=== PATIENT | male | born 1990 | race Caucasian/White ===

== ENCOUNTER 2022-09-25 09:35 | Emergency (ER) | payer MEDICARE, OTHER, MEDICAID, SELFPAY ==
[2022-09-25 09:54] VITALS: BP 120/80; PULSE 86; RESP 18; TEMP 36.6; O2SAT 96; BMI 31.3
--- NOTE | 2022-09-25 10:33 | ED.NURSE ---
pt has requested sandwiches x2 while waiting for eval
--- NOTE | 2022-09-25 10:43 | ED.PSYCH ---
HPI - Psych General Chief Complaint: Psychiatric Problem/Disorder Stated Complaint: Suicidal Ideation Time Seen by Provider: 09/25/22 10:34 History of Present Illness HPI Narrative: 32-year-old man presenting to the emergency department on recommendation of his recovery center where he is in treatment for polysubstance use/abuse. Prefers methamphetamine and alcohol but has done a variety of substances. This is inpatient. He has 2 more months. He has been having increasing thoughts of suicide over the last week in particular to hang himself. Some months ago was in retirement and did accomplish this requiring CPR he reports. He has had other suicide attempts. Is not seeing much hope for the future at the moment. Does not anticipate anything over the next week and beyond. He has been drifting from ?my chick? adding to his depression. Reports history of substance abuse as noted, bipolar disorder indicating that with medication changes recently had a bipolar episode. Medications per list from [facility] include bupropion naltrexone p.r.n. for hydroxyzine and trazodone Related Data Home Medications Medication Instructions Recorded Confirmed bupropion HCl 150 mg 24 hr tablet, 150 mg PO DAILY 09/25/22 09/25/22 extended release naltrexone 50 mg tablet 50 mg PO DAILY 09/25/22 09/25/22 Allergies Allergy/AdvReac Type Severity Reaction Status Date / Time No Known Drug Allergies Allergy Verified 09/25/22 10:06 Review of Systems Status of ROS: Reports: 6 or more systems reviewed and unremarkable except as noted in History and below PFSH PFSH Social History Smoking Status: Current every day smoker Do you use any of these nicotine containing products: None How often do you have a drink containing alcohol: never AUDIT-C Alcohol total score: 0 Non-prescribed substance use: denies use Non-prescribed substance use details: is currently in treatment for drugs and alcohol Exam Narrative: Exam Narrative: Pleasant. NAD. Relaxing eating late breakfast. Also Roddy and Yobani. Is calm. Appropriately casually dressed in T-shirt in track pants. Smells of cigarette smoke. Skin is warm and dry. No evidence of recent self-harm behavior. Breathing easily. Cranial nerves 2-12 intact. No nystagmus. Cardiovascular was regular rate and rhythm Moving all extremities without difficulty. Extremities are without edema. Mood is depressed affect is actually positive. Speech is not pressured or slurred. Const: Vital Signs, click to edit/add: Vital Signs - 24 hr 09/25/22 09:54 09/25/22 10:48 09/25/22 18:03 Temperature 97.8 F 97.7 F Pulse Rate [Right Pulse Oximeter] 86 78 78 Respiratory Rate 18 18 18 Blood Pressure [Ri ght Upper Arm] 120/80 122/78 116/62 Pulse Oximetry 96 98 96 Oxygen Delivery Me thod Room Air Room Air Room Air Documenting provider has reviewed patient's vital signs: yes Course Course Hospital Course: DEC was consulted also expressing concern and recommending psychiatric admission. Not able to contract for safety. Reevaluation(s) Reevaluation #1: Continued to sleep during time in the emergency department not requiring any other interventions. Reevaluation #2: Comfortable. Sleeping. Reevaluation #3: Pending approval from safety instruction police officer to transport to psychiatric facility. Anticipate though likely heading to another DEC assessment in the morning. Vital Signs Vital signs: Initial Vital Signs Temperature 97.8 F 09/25/22 09:54 Temperature Source Temporal Artery Scan 09/25/22 09:54 Pulse Rate 86 09/25/22 09:54 Respiratory Rate 18 09/25/22 09:54 Blood Pressure 120/80 09/25/22 09:54 Blood Pressure Mean 93 09/25/22 09:54 Blood Pressure Position Sitting 09/25/22 09:54 Pulse Oximetry 96 09/25/22 09:54 Oxygen Delivery Method 09/25/22 09:54 Vital Signs Temperature 97.8 F 09/25/22 09:54 Pulse Rate 86 09/25/22 09:54 Respiratory Rate 18 09/25/22 09:54 Blood Pressure 120/80 09/25/22 09:54 Pulse Oximetry 96 09/25/22 09:54 Oxygen Delivery Method 09/25/22 09:54 Temperature 97.7 F 09/25/22 18:03 Pulse Rate 78 09/25/22 18:03 Respiratory Rate 18 09/25/22 18:03 Blood Pressure 116/62 09/25/22 18:03 Pulse Oximetry 96 09/25/22 18:03 Oxygen Delivery Method 09/25/22 18:03 MDM - Psych MDM Narrative Medical decision making narrative: A number of mental health facilities simultaneously working at placing Mr. Gavin but determined that his acuity was too high or would require too much observation given his reported suicide history. Finally did obtain acceptance from [facility] in [place]. Prior to discussing location I did inquire again with Mr. Gavin as to his suicidality. He indicated that it is coming and going but still present. I did inform Mr. Gavin of facility acceptance in [place] and he was disinclined to go there in part because anticipating no transport back. He wanted to return to his recovery center. Subsequently called [facility] but they would not anticipate being able to provide transport back. I also attempted to contact Mr. Gavin's mother but was only able to leave a message. Mr. Gavin also around this time informed me that he is on parole and is not to cross state lines. Given that he was still noting suicidality I placed Mr. Gavin on a 72 hour hold as ambulance transport had arrived anticipating that medical necessity would be pre-emptive and per initial conversation that [facility] would look into supplying bus voucher. I also attempted to contact safety instruction police officer Amarilis at phone #[phone] and only able to leave a message twice. Subsequently received a call back from [facility] confirming that they do indeed need actual written communication from the safety instruction police officer per their policy before they can accept a psychiatric patient. Labs unremarkable other than oxycodone noted in urine tox screen. At this point this is being rerun. Mr. Gavin is taking naltrexone. Now pending communication from safety instruction police officer. I would anticipate another DEC assessment likely in the morning. Lab Data Attestation: I reviewed the patient's lab results. Labs: Lab Results 09/25/22 09/25/22 09/25/22 Range/Units 10:48 11:00 11:32 WBC 7.39 (4.50-11.00) K/uL RBC 5.50 (4.30-5.90) m/uL Hgb 16.5 (13.5-17.5) gm/dL Hct 48.5 (37.0-53.0) % MCV 88 (80-100) fL MCH 30 (26-34) pg MCHC 34 (32-36) gm/dL RDW Coeff of Yadi 12.1 (11.5-15.5) % Plt Count 211 (140-440) K/uL Neut % (Auto) 70.8 (42.0-72.0) % Lymph % (Auto) 19.9 L (20-44) % Wheeler % (Auto) 6.6 (0.0-11.0) % Eos % (Auto) 1.9 (0.0-7.0) % Baso % (Auto) 0.4 (0.0-3.0) % Neut # (Auto) 5.23 (1.7-7.0) K/uL Lymph # (Auto) 1.50 (0.90-2.90) K/uL Wheeler # (Auto) 0.50 (0.00-0.90) K/UL Eos # (Auto) 0.14 (0.00-0.50) K/uL Baso # (Auto) 0.03 (0.00-0.30) K/uL Abs Immat Gran (auto) 0.03 (0.00-0.30) K/uL Sodium (135-149) mmol/L Potassium (3.6-5.1) mmol/L Chloride (96-114) mmol/L Carbon Dioxide (20-32) mmol/L BUN (5-24) mg/dL Creatinine (0.5-1.5) mg/dL Estimated Creat Clear Estimated GFR ml/min Glucose (60-115) mg/dL Calcium (8.4-10.6) mg/dL Total Bilirubin (0.1-1.5) mg/dL Direct Bilirubin (0.0-0.5) mg/dL AST (12-35) U/L ALT (4-50) U/L Alkaline Phosphatase (40-150) U/L Total Protein (6.0-8.3) g/dL Albumin (3.3-5.0) g/dL Salicylates (1.0-10) mg/dL Urine Opiates Screen Negative (Negative) Ur Oxycodone Screen POSITIVE A* (Negative) Urine Methadone Screen Negative (Negative) Ur Propoxyphene Screen Negative (Negative) Acetaminophen (10.0-30.0) ug/mL Ur Barbiturates Screen Negative (Negative) U Tricyclic Antidepress Negative (Negative) Ur Phencyclidine Scrn Negative (Negative) Ur Amphetamines Screen Negative (Negative) U Methamphetamines Scrn Negative (Negative) U Benzodiazepines Scrn Negative (Negative) Urine Cocaine Screen Negative (Negative) U Marijuana (THC) Screen Negative (Negative) Ur Drug Screen Comment See Note Ethyl Alcohol (0.01-0.03) % SARS-CoV-2 (PCR) Negative SARS-CoV-2 (Negative) 09/25/22 Range/Units 11:32 WBC (4.50-11.00) K/uL RBC (4.30-5.90) m/uL Hgb (13.5-17.5) gm/dL Hct (37.0-53.0) % MCV (80-100) fL MCH (26-34) pg MCHC (32-36) gm/dL RDW Coeff of Yadi (11.5-15.5) % Plt Count (140-440) K/uL Neut % (Auto) (42.0-72.0) % Lymph % (Auto) (20-44) % Wheeler % (Auto) (0.0-11.0) % Eos % (Auto) (0.0-7.0) % Baso % (Auto) (0.0-3.0) % Neut # (Auto) (1.7-7.0) K/uL Lymph # (Auto) (0.90-2.90) K/uL Wheeler # (Auto) (0.00-0.90) K/UL Eos # (Auto) (0.00-0.50) K/uL Baso # (Auto) (0.00-0.30) K/uL Abs Immat Gran (auto) (0.00-0.30) K/uL Sodium 140 (135-149) mmol/L Potassium 4.4 (3.6-5.1) mmol/L Chloride 103 (96-114) mmol/L Carbon Dioxide 27 (20-32) mmol/L BUN 17 (5-24) mg/dL Creatinine 1.0 (0.5-1.5) mg/dL Estimated Creat Clear 111.53 Estimated GFR 104 ml/min Glucose 98 (60-115) mg/dL Calcium 9.2 (8.4-10.6) mg/dL Total Bilirubin 0.6 (0.1-1.5) mg/dL Direct Bilirubin 0.1 (0.0-0.5) mg/dL AST 40 H (12-35) U/L ALT 23 (4-50) U/L Alkaline Phosphatase 84 (40-150) U/L Total Protein 7.1 (6.0-8.3) g/dL Albumin 4.5 (3.3-5.0) g/dL Salicylates < 1.0 L (1.0-10) mg/dL Urine Opiates Screen (Negative) Ur Oxycodone Screen (Negative) Urine Methadone Screen (Negative) Ur Propoxyphene Screen (Negative) Acetaminophen < 10.0 L (10.0-30.0) ug/mL Ur Barbiturates Screen (Negative) U Tricyclic Antidepress (Negative) Ur Phencyclidine Scrn (Negative) Ur Amphetamines Screen (Negative) U Methamphetamines Scrn (Negative) U Benzodiazepines Scrn (Negative) Urine Cocaine Screen (Negative) U Marijuana (THC) Screen (Negative) Ur Drug Screen Comment Ethyl Alcohol < 0.01 L (0.01-0.03) % SARS-CoV-2 (PCR) (Negative) Discharge Plan Discharge Patient Disposition: Pending Disposition
[2022-09-25 10:48] VITALS: BP 122/78; PULSE 78; RESP 18; O2SAT 98
--- OUTSIDE RECORDS SUMMARY | 2022-09-25 10:54 | XMS_ITS | Encounter Summary ---
:1990 Author Organization [place] Address [address] [facility] [place] [address] Care Team Providers Name Role Phone Ruperto Rey PhD Unavailable Unavailable Bebeto Faulkner OD Unavailable Dana Powell DPM Unavailable [phone] Julian Santana MD Primary Care Provider Encounter Details Date Type Department Care Team Description 07/27/2013 [facility] Grover chaudhry MD [facility] [address] [facility] [address] [place] [address] [address] [place], [place] [address] (Wo rk) Social History Tobacco Use Types Packs/Day Years Used Date Smoking Tobacco: Every Day Cigarettes 1 7 Smokeless Tobacco: Current Chew Comments: declines quit lne 09-26-12 Alcohol Use Standard Drinks/Week Comments Yes 0 (1 standard drink = 0.6 oz pure about 6 bees once or twice a week alcohol) Sex Assigned at Date Recorded Not on file documented as of this encounter Plan of Treatment Not on filedocumented as of this encounter Visit Diagnoses Not on filedocumented in this encounter Care Teams Hydraulic Pile Hammer Operator Relationship Specialty Start Date End Date Ruperto Rey, PhD PCP - Mental 12/21/00 05/14/22 XXX NO INFO FOUND XXX Health/Behavioral Medicine Bebeto Faulkner, OD PCP - Ophthalmology 10/21/07 Dana Powell, PCP - Podiatry 02/16/08 DPM [facility] [place] [address] [place] [address] Julian Santana MD PCP - General Family Practice 09/26/12 [facility] [place] [address] [place] [address] documented as of this encounter
--- OUTSIDE RECORDS SUMMARY | 2022-09-25 10:54 | XMS_ITS | Encounter Summary ---
:1990 Author Organization [place] Address [address] [facility] [place] [address] Care Team Providers Name Role Phone Ruperto Rey PhD Unavailable Unavailable Bebeto Faulkner OD Unavailable Dana Powell DPM Unavailable [phone] Julian Santana MD Primary Care Provider Reason for Visit Reason Comments Imm/Inj Encounter Details Date Type Department Care Team Description 11/01/2013 Allied Health/Nurse [facility] - Imm/Inj Visit [place] in [address] [id number] Social History Tobacco Use Types Packs/Day Years Used Date Smoking Tobacco: Every Day Cigarettes 1 7 Smokeless Tobacco: Current Chew Comments: declines quit lne 09-26-12 Alcohol Use Standard Drinks/Week Comments Yes 0 (1 standard drink = 0.6 oz pure about 6 bees once or twice a week alcohol) Sex Assigned at Date Recorded Not on file documented as of this encounter Nursing Notes 11/01/2013 4:45 PM CST >> Lashanda Lynch LPN WedNov 01, 2013 5:18 PM Vaccines given this encounter have been verified with Ramos STEVE documented in this encounter Plan of Treatment Not on filedocumented as of this encounter Visit Diagnoses Diagnosis Need for prophylactic vaccination and in oculation against other combinations of diseases - Primary documented in this encounter Care Teams Side Puller Relationship Specialty Start Date End Date Ruperto Rey, PhD PCP - Mental 12/21/00 05/14/22 XXX NO INFO FOUND XXX Health/Behavioral Medicine Bebeto Faulkner, ROSLYN PCP - Ophthalmology 10/21/07 Dana Powell, PCP - Podiatry 02/16/08 DPM [facility] [place] [address] [facility] [address] [place], [place] [id number] Julian Santana MD PCP - General Family Practice 09/26/12 [facility] [address] [facility] [address] [place] [address] documented as of this encounter
--- OUTSIDE RECORDS SUMMARY | 2022-09-25 10:54 | XMS_ITS | Encounter Summary ---
:1990 Author Organization [place] Address [address] [place] [address] Care Team Providers Name Role Phone Candido Ruperto Hicks PhD Unavailable Unavailable Bebeto Faulkner OD Unavailable Dana Powell DPM Unavailable [phone] Julian Santana MD Primary Care Provider Reason for Visit Reason Comments Cough Cough x2 wks. Encounter Details Date Type Department Care Team Description 08/16/2013 [facility], acute (Primary Dx); System in [place] W[facility] Valerio Acute maxillary sinusitis Urgent Care [address] [place] [address] [address] [address] [place] [address] [phone] Social History Tobacco Use Types Packs/Day Years Used Date Smoking Tobacco: Every Day Cigarettes 1 7 Smokeless Tobacco: Current Chew Comments: declines quit lne 09-26-12 Alcohol Use Standard Drinks/Week Comments Yes 0 (1 standard drink = 0.6 oz pure about 6 bees once or twice a week alcohol) Sex Assigned at Date Recorded Not on file documented as of this encounter Last Filed Vital Signs Vital Sign Reading Time Taken Comments Blood Pressure 110/59 08/16/2013 12:12 PM CDT Pulse 92 08/16/2013 12:12 PM CDT Temperature 36.9 ??C (98.5 ??F) 08/16/2013 12:12 PM CDT Respiratory Rate - - Oxygen Saturation 98% 08/16/2013 12:12 PM CDT Inhaled Oxygen Concentration - - Weight - - Height - - Body Mass Index - - documented in this encounter Progress Notes Althea Pederson PA - 08/16/2013 1:46 PM CDT CHIEF COMPLAINT: Bronchitis. HISTORY OF CHIEF COMPLAINT: Patient states that his lung started hurting about 2 weeks ago. He has had a lot of coughing and has gotten worse over the last couple of days. He has had increased phlegm production and hurts to breathe. He complains of being hot but does not have a fever that he knows of or any chills. He has had some headaches and sinus drainage and pressure. Patient does smoke. Also has had a history of having had bronchitis in the past and having to use inhalers with that. VITAL SIGNS: Noted in Epic. GENERAL: Well developed 22-year-old male in no acute distress at rest. ENT: Tympanic membranes are clear. He does look like he might have a slight retraction in the ears. Little fluid clear fluid. Nasal passages are swollen. Maxillary sinuses are tender to palpation. Oropharynx is irritated. No erythema. HEART: Regular rate and rhythm without murmur. LUNGS: Clear to auscultation bilaterally. ASSESSMENT: 1. Bronchitis. 2. Sinusitis. PLAN: Put him on Augmentin 875, 1 p.o. b.i.d. for 10 days. Also put him on Albuterol inhaler 2 puffs every 6 hours as needed for cough and shortness of breath. Did discuss with patient about quitting smoking and that he needed to saline sinus rinses to flush out his sinuses. If he has any problems or get worse, he will follow up. SADIE Martinez/lawrence documented in this encounter Plan of Treatment Not on filedocumented as of this encounter Visit Diagnoses Diagnosis Bronchitis, acute - Primary Acute bronchitis Acute maxillary sinusitis documented in this encounter Care Teams Washer Machine Relationship Specialty Start Date End Date Ruperto Rey, PhD PCP - Mental 12/21/00 05/14/22 XXX NO INFO FOUND XXX Health/Behavioral Medicine Lucie, Bebeto M, OD PCP - Ophthalmology 10/21/07 Dana Powell, PCP - Podiatry 02/16/08 DPM [facility] [place] [address] [facility] [address] [place] [address] Julian Santana MD PCP - General Family Practice 09/26/12 [facility] [place] [address] [place] [address] documented as of this encounter
--- OUTSIDE RECORDS SUMMARY | 2022-09-25 10:54 | XMS_ITS | Encounter Summary ---
:1990 Author Organization [place] Address [address] [place] [address] Care Team Providers Name Role Phone Mariely Osuna MD Primary Care Provider Ruperto Rey PhD Unavailable Unavailable Bebeto Faulkner OD Unavailable Dana Powell DPM Unavailable [phone] Reason for Visit Reason Comments Pain lung pain, x 2 days, thinks may have aspirated vomit on sat, short of breath Encounter Details Date Type Department Care Team Description 05/16/2012 Office Visit [facility] Addison Sidhu Chest pain (Primary System in [place] D, PA-C Dx) Urgent Care [facility] [address] [place], [place] [address] [place] [address] Social History Tobacco Use Types Packs/Day Years Used Date Smoking Tobacco: Every Day Cigarettes 0.5 Smokeless Tobacco: Current Chew Alcohol Use Standard Drinks/Week Comments Not Asked 0 (1 standard drink = 0.6 oz pure alcoho l) Sex Assigned at Date Recorded Not on file documented as of this encounter Last Filed Vital Signs Vital Sign Reading Time Taken Comments Blood Pressure 108/69 05/16/2012 3:39 PM CDT Pulse 71 05/16/2012 3:39 PM CDT Temperature 36.4 ??C (97.6 ??F) 05/16/2012 3:39 PM CDT Respiratory Rate - - Oxygen Saturation 98% 05/16/2012 3:39 PM CDT Inhaled Oxygen Concentration - - Weight 81.2 kg (179 lb) 05/16/2012 3:39 PM CDT Height - - Body Mass Index 25.68 05/21/2011 1:45 PM CDT documented in this encounter Progress Notes Addison Sidhu PA-C - 05/17/2012 8:30 AM CDT SUBJECTIVE: Young adult male smoker who threw up so hard the other day that he strained his chest wall and lungs he states. He started himself on a couple days of Augmentin for purulent sputum. He continues to smoke. No fever , non pleuritic. PHYSICAL EXAMINATION: He is smiling, no distress. Vitals stable. Ears and throat clear. Lungs clear. Heart tones are normal. Palpation of the chest wall nontender. Chest x-ray appears clear. Abdomen soft. No distress. ASSESSMENT: Bronchitis. PLAN: Finish off a ten day course of Augmentin 875 b.i.d. for ten days. Seven day prescription given. He is to recheck with us sooner p.r.n. increasing pain or fever. Patient and family agree with this plan of care. Smoking cessation is strongly advised. Addison Sidhu PA-C CDM/amari documented in this encounter Nursing Notes 05/16/2012 3:45 PM CDT >> POONAM LYNN Mon May 16, 2012 4:14 PM Medication name: Albuterol 2.5mg/3ml lot number:[id number] expiration date: 11/10 given via nebulizer: Pre O2 sats: 98 HR: 71 Post O2 sats: 100 HR: 74 documented in this encounter Plan of Treatment Not on filedocumented as of this encounter Procedures Procedure Name Priority Date/Time Associated Diagnosis Comme nts XR CHEST 2 VIEWS Routine 05/16/2012 4:07 PM Chest Pain Resul ts for this CDT procedure are i n the results section. documented in this encounter Results X-ray Chest 2 vws* (05/16/2012 4:07 PM CDT) Anatomical Region Laterality Modality Chest Other Specimen (Source) Anatomical Collection Method Collection Time Re ceived Time Location / / Volume Laterality 05/16/2012 4:07 PM CDT Impressions 05/16/2012 9:03 PM CDT CHEST TWO VIEW ?? May 16, 2012 4:07:00 PM HISTORY: Chest pain. COMPARISON: 11/04/2004 IMPRESSION: Normal and unchanged. Addison Sidhu PA-C IMG DIAGNOSTIC IMAGING ORDER TRACEY documented in this encounter Visit Diagnoses Diagnosis Chest pain - Primary Chest pain, unspecified documented in this encounter Care Teams Java Developer Relationship Specialty Start Date End Date Mariely Osuna MD PCP - General 06/26/04 09/25/12 [facility] [place] [address] [place] [address] Ruperto Rey, PhD PCP - Mental Health/Behavioral 12/21/00 XXX NO INFO FOUND XXX Medicine Bebeto Faulkner, OD PCP - Ophthalmology 10/21/07 Dana Powell, PCP - Podiatry 02/16/08 DPM [facility] [place] [address] [place] [address] documented as of this encounter
--- OUTSIDE RECORDS SUMMARY | 2022-09-25 10:54 | XMS_ITS | Encounter Summary ---
:1990 Author Organization [place] Address [address] [place] [address] Care Team Providers Name Role Phone KatherinejumanaRuperto PhD Unavailable Unavailable Bebeto Faulkner OD Unavailable Dana Powell DPM Unavailable [phone] Julian Santana MD Primary Care Provider Reason for Referral - Closed Specialty Diagnoses / Procedures Referred By Contact Refer red To Contact Diagnoses Bipolar I disorder, most recent episode (or current) unspecified Julian Santana MD [facility] [address] [place] [address] Referral ID Status Reason Start Date Expiration Date Visits Requ ested Visits Authorized [id number] Closed 09/26/2012 03/25/2013 1 1 Scheduling Instructions Please contact the [facility] at [phone] to set up your appointment. Thank you. - Closed Specialty Diagnoses / Procedures Referred By Contact Refer marty To Contact Diagnoses Abdominal pain, other specified site Weight loss Julian Santana MD [facility] [address] [place] [address] Referral ID Status Reason Start Date Expiration Date Visits Requ ested Visits Authorized [id number] Closed 09/26/2012 03/25/2013 1 1 Specialty Diagnoses / Procedures Referred By Contact Refer red To Contact Julian Santana MD [facility] Marty Gee [address] [place] [address] Referral ID Status Reason Start Date Expiration Date Visits Requ ested Visits Authorized Reason for Visit Reason Comments Establish Care transfer of care Gastric Problem stomach pain Derm Problem possible ring worm A.D.H.D talk about this and depressi on Encounter Details Date Type Department Care Team Description 09/26/2012 Office Visit [facility] Julian Santana, Abdom inal pain, other specified site (Primary Dx); System in Marty Gee MD Weight loss; Family Practice [facility] Marty Gee BIPOLAR - MOST RECENT EPISODE UNSPECIFIE D; [address] [place] [address] Marijuana abuse [address] [address] [place] [phone] [id number] Social History Tobacco Use Types Packs/Day Years [...] Sign Reading Time Taken Comments Blood Pressure 110/80 09/26/2012 1:53 PM CDT Pulse 88 09/26/2012 1:53 PM CDT Temperature 36.4 ??C (97.5 ??F) 09/26/2012 1:53 PM CDT Respiratory Rate - - Oxygen Saturation - - Inhaled Oxygen Concentration - - Weight 73.1 kg (161 lb 1.6 oz) 09/26/2012 1:53 PM CDT Height 178.4 cm (5' 10.25) 09/26/2012 1:53 PM CDT Body Mass Index 22.95 09/26/2012 1:53 PM CDT documented in this encounter Patient Instructions Patient InstructionsCarolyn Biswas - 09/26/2012 1:58 PM CDT How to stop using Tobacco products There are medications that can help you to quit. Consider nicotine replacement. Your chances of quitting are much better with the nicotine patch or gum-and you don't need a prescription. The more support you get, the better your chances of quitting. Talk to someone who supports your efforts to quit. Counseling and nicotine replacement together are more effective than either one alone. For information and referrals to tobacco cessation programs in your area, call: ?? [place] Quit plan airvodlc-2-513-354-PLAN ( ) http://quitplan.Drywave.WIN [employer] Systems/p/quitplan/triage.jtml ?? [place] Tobacco Quit cbgv-5-728-270-STOP ( ) ?? [place] Cancer Lkreucs-9-269-ACS-2345 ( ) ?? [place] [facility] Iyzjlsoqg-7-529-4-CANCER ( ) documented in this encounter Progress Notes Julian Santana MD - 09/26/2012 2:54 PM CDT Chief Complaint: Chief Complaint Patient presents with ??? Establish Care transfer of care ??? Gastric Problem stomach pain ??? Derm Problem possible ring worm ??? A.D.H.D talk about this and depression The patient complains of abdominal pain of moderate severity for a couple of years. The patient describes the symptoms as difficult to describe, since it can be different. The patient describes modifying or exacerbating factors as: worse with eating. The patient has attempted the following treatments:omeprazole 20 mg daily hasn't helped at all. The patient denies any other aggravating or alleviatingfactors or associated symptoms. He is also here to discuss ADHD. He has had this as well as depression and bipolar disorder for several years. He along with his brother have both stopped medications for bipolar disorder. He was previously seen by psychiatry in the past. He most recently had been taking Trileptal and trazodone which did seem to help out. He had side effects with risperidone in the past including gynecomastia per both his and his mother???s report. He does not have any side effects with the Trileptal or the trazodone. He continued to have troubleswith sleeping. This has been going on on a daily basis for several years. H He also admits to smoking marijuana usually three times a day. He states that he uses it for self medication to treat his depression, anxiety and ADHD. He states he still feels down and depressed as well as anxious. He states he is fairly well controlled when he was on his medications but just didn???t want to be on medications any more and preferred just to smoke marijuana. PCN/BTM/dac Patient Active Problem List Diagnoses ??? HEADACHE ??? ATTN DEFICIT W HYPERACT ??? TIC DISORDER NOS ??? SLEEP DISTURBANCE NOS ??? UNSPEC CONSTIPATION ??? BIPOLAR - MOST RECENT EPISODE UNSPECIFIED Past Medical History Diagnosis Date ??? Attention deficit disorder with hyperactivity ??? Unspecified delay in development Language delay - resolved ??? Phobia, unspecified Social phobia ??? Obsessive-compulsive disorders depressive disorder 2010 ??? Tic disorder, unspecified ??? Transitory tachypnea of ??? Varicella without mention of complication Age 4 Chickenpox ??? Pneumonia, organism unspecified 06/18/04 Hospitalized ??? Suicidal intent 2010 peel Past Surgical History Procedure Date ??? Hc cystourethroscopy 06/22/03 ??? Hc repair ing hernia,6mo-5yr,reduc 03/13/94 (R) ??? Hc create eardrum opening,gen anesth 05/21/95 (R) Myringotomy w tubes ? ? Hc removal adenoids,primary,<12 y/o 05/05/96 [facility] ??? C cystoscopy,ureteral meatotomy 07/18/97 ??? Hc circumcision clamp/device ? ? Hc repair intermed, wound trunk/arm/leg <=2.5 cm 03/23/96 Laceration (R) hand 5th finger ? ? Hc removal of tonsils,<14 y/o 10/31/97 [facility] Current Outpatient Prescriptions Medication Sig ??? omeprazole 20 MG tablet Take 1 tablet by mouth daily. Take 30-60 minutes before a meal. ??? ADVIL 200 MG OR CAPS prn, per mom Allergies Allergen Reactions ??? Doxycycline Nausea and Vomiting ??? Zithromax (Azithromycin Dihydrate) Hives Review Of Systems (other than mentioned above) Constitutional: fatigue, weight loss. Ears/Nose/Throat: negative Respiratory: negative Cardiovascular: negative Gastrointestinal: as above. PHYSICAL EXAMINATION: Blood pressure 110/80, pulse 88, temperature 97.5 ??F (36.4 ??C), temperature source Temporal, height 1.784 m (5' 10.25), weight 73.074 kg (161 lb 1.6 oz). General: Patient is well nourished, alert and oriented in no acute distress. Psych: depressed mood and flat affect. Eyes are normal. PERRLA, corneas and conjunctivae normal. Fundi are normal, no papilledema, hemorrhages or exudates. No AV crossing changes. Ears: normal tympanic membranes and extra-auditory canals. Throat: normal mucosa without any lesions or erythema. Neck: supple, no adenopathy, and thyroid normal size, non-tender, without nodularity. Chest wall normal to inspection and palpation. Good excursion bilaterally. Lungs clear to auscultation. Good air movement bilaterally without rales, wheezes, or rhonchi. Cardiac: normal S1 and S2 without any murmur, gallops or rubs. No carotid bruits. No edema or cyanosis. Abdomen: bowel sounds present. Soft and non-tender. No palpable masses or hepatosplenomegaly. ASSESSMENT/PLAN: 1. Abdominal pain, other specified site GASTROENTEROLOGY ADULT REFERRAL +/- PROCEDURE 2. Weight loss GASTROENTEROLOGY ADULT REFERRAL +/- PROCEDURE 3. BIPOLAR - MOST RECENT EPISODE UNSPECIFIED traZODone (DESYREL) 100 MG tablet, OXcarbazepine (TRILEPTAL) 600 MG tablet 4. Marijuana abuse 1. I did place a referral to gastroenterology for him to consider getting an esophagogastroduodenoscopy (EGD). He has had symptoms or a long enough time and has not resolved with omeprazole. I suspect there may be a component of anxiety which is contributing to this. I recommend he discontinue the omeprazole since he has been trying it for a month and it has not been helpful. 2. I did restart the trazodone and Trileptal for him. I placed a referral to psychiatry for him to be able to be seen. He will call to get that appointment set up. 3. I have asked from him to recheck in one month???s time. At that point I have asked him to be completely off of marijuana for one month and I will test it at that point. I told him that I would not fill any medications for ADHD unless he is off of the marijuana. He agrees to do this. PCN/BTM/dac documented in this encounter Plan of Treatment Not on filedocumented as of this encounter Visit Diagnoses Diagnosis Abdominal pain, other specified site - P rimary Weight loss Loss of weight BIPOLAR - MOST RECENT EPISODE UNSPECIFIE D Bipolar I disorder, most recent episode (or current) unspecified Marijuana abuse Cannabis abuse, unspecified documented in this encounter Care Teams Route Inspector Relationship Specialty Start Date End Date Ruperto Rey, PhD PCP - Mental 12/21/00 05/14/22 XXX NO INFO FOUND XXX Health/Behavioral Medicine Bebeto Faulkner, ROSLYN PCP - Ophthalmology 10/21/07 Dana Powell, PCP - Podiatry 02/16/08 DPM [facility] [place] [address] [place] [address] Julian Santana MD PCP - General Family Practice 09/26/12 [facility] [place] [address] [place] [address] documented as of this encounter
--- OUTSIDE RECORDS SUMMARY | 2022-09-25 10:54 | XMS_ITS | Encounter Summary ---
:1990 Author Organization [place] Address [address] [place] [address] Care Team Providers Name Role Phone Mariely Osuna MD Primary Care Provider Ruperto Rey PhD Unavailable Unavailable Bebeto Faulkner OD Unavailable Dana Powell DPM Unavailable [phone] Reason for Referral Specialty Diagnoses / Procedures Referred By Contact Refer red To Contact Monster Banerjee M D [facility] [address] [place] [address] Referral ID Status Reason Start Date Expiration Date Visits Requ ested Visits Authorized Reason for Visit Reason Comments Abdominal Pain stomach pain off and on for year,worse now Encounter Details Date Type Department Care Team Description 08/05/2012 Office Visit [facility] Monster Banerjee screening examination for unspecified chlamydial disease (Primary Dx); System in Marty Powell MD Epigastric pain; Family Practice [facility] [place] [address] [place] [address] [place] [address] [address] [place] [phone] Social History Tobacco Use Types Packs/Day Years Used Date Smoking Tobacco: Every Day Cigarettes 1 Smokeless Tobacco: Current Chew Tobacco Cessation: Ready to Quit: No; Co unseling Given: Yes Alcohol Use Standard Drinks/Week Comments Yes 0 (1 standard drink = 0.6 oz pure about 6 bees once or twice a week alcohol) Sex Assigned at Date Recorded Not on file documented as of this encounter Last Filed Vital Signs Vital Sign Reading Time Taken Comments Blood Pressure 90/44 08/05/2012 10:03 AM CDT Pulse 64 08/05/2012 10:03 AM CDT Temperature 36.2 ??C (97.2 ??F) 08/05/2012 10:03 AM CDT Respiratory Rate - - Oxygen Saturation - - Inhaled Oxygen Concentration - - Weight 78.7 kg (173 lb 6.4 oz) 08/05/2012 10:03 AM CDT Height 177.8 cm (5' 10) 08/05/2012 10:03 AM CDT Body Mass Index 24.88 08/05/2012 10:03 AM CDT documented in this encounter Patient Instructions Patient InstructionsStAlysia ruiz - 08/05/2012 10:11 AM CDT How to stop using Tobacco products [...] cessation programs in your area, call: ?? [place] Quit plan qxqunwzv-1-457-354-PLAN ( ) http://quitplan.quitnet.com/p/quitplan/triage.jtml ?? [place] Tobacco Quit jtug-3-449-270-STOP ( ) ?? [place] Cancer Kksgoyy-2-426-ACS-2345 ( ) ?? National Cancer Zblvfftos-5-043-4-CANCER ( ) documented in this encounter Progress Notes Monster Banerjee MD - 08/09/2012 2:56 PM CDT CLINIC ENCOUNTER Patient presents today with abdominal pain, epigastric, off and on for about a year. Had a workup 04/24/12 which was negative. Hasn't tried really any antacid medications. He denies any vomiting, denies any change with eating. No change in bowel or bladder habits. Normal soft bowel movements. Has a history of constipation, hasn't had any of that. Does take Advil. Does smoke and drink and use caffeine. OBJECTIVE: General: Patient alert and oriented, pleasant and cooperative with exam. No acute distress. Vitals: See nursing note. Head: Atraumatic, normocephalic. Eyes: Unremarkable. Discs are sharp bilaterally. Ears: Tympanic membranes appear normal bilaterally. Nose: Nares clear. Oropharynx: Clear. Neck: Supple without lymphadenopathy or thyromegaly. Lungs: Clear to auscultation bilaterally. Heart: Regular rate and rhythm, normal S1, S2 without murmurs, rubs or gallops. Abdomen: Soft, nontender, non-distended, no hepatosplenomegaly or other masses appreciated. There are positive bowel sounds. Extremities - no clubbing, cyanosis or edema. Neurologic Exam: Cranial nerves 2-12 are grossly intact. Sensation and motor strength grossly intact throughout. Reflexes are 2+ and symmetric. ASSESSMENT 1. Epigastric pain almost certainly dyspepsia. 2. Tinea versicolor around the umbilicus. PLAN: He needs to avoid NSAIDs, alcohol, tobacco, and caffeine right now. Start omeprazole for 6 weeks and then Pepcid prn after that. Follow up with GI if symptoms persist. He can try Lamisil for the tinea. Monster Banerjee M.D. NICK/lawrence cc: Monster Banerjee MD - 08/05/2012 10:56 AM CDT This office note has been dictated. documented in this encounter Nursing Notes 08/05/2012 9:50 AM CDT >> Alysia Ortiz Fri Aug 05, 2012 10:23 AM Pt states can call home number and if not available can give chlamydia results to his mother. documented in this encounter Plan of Treatment Not on filedocumented as of this encounter Procedures Procedure Name Priority Date/Time Associated Diagnosis Comme nts CHLAMYDIA Routine 08/05/2012 11:00 Special screening Result s for this TRACHOMATIS PCR AM CDT examination for procedure are in unspecified the results chlamydial disease section. documented in this encounter Results CHLAMYDIA TRACHOMATIS PCR (08/05/2012 11:00 AM CDT) Component Value Ref Test Analysis Performed At [facility] Range Method Time Signature Specimen Urine [facility] [place] Description LAB/RAD Chlamydia Negative for C. trachomatis rRNA by biochemist mediated amplification. [facility] Trachomatis A negative result by transc ription mediated amplification does not preclude the MICROBIOLOGY PCR presence of C. trachomatis infection because results are dependent on proper and adequate collection, absence of inhibitors, and suffici ent rRNA to be detected. Specimen Anatomical Collection Method Collection Time Receive d Time (Source) Location / / Volume Laterality Urine specimen 08/05/2012 11:00 2 (specimen) AM CDT 11:21 AM CDT Monster Banerjee MD LAB - MICRO GENERAL ORDERABL ES Performing Organization Address City/State/ZIP Code Phon e Number [address] [address] [facility] [place] [address] [facility] documented in this encounter Visit Diagnoses Diagnosis Special screening examination for unspec ified chlamydial disease - Primary Epigastric pain Abdominal pain, epigastric Tinea Dermatophytosis of unspecified site documented in this encounter Care Teams General Scrap Worker Relationship Specialty Start Date End Date Mariely Osuna MD PCP - General 06/26/04 09/25/12 [facility] [address] [facility] [address] [place] [address] Ruperto Rey, PhD PCP - Mental Health/Behavioral 12/21/00 XXX NO INFO FOUND XXX Medicine Bbeeto Faulkner, OD PCP - Ophthalmology 10/21/07 Dana Powell, PCP - Podiatry 02/16/08 DPM [facility] Marty Novak [address] [facility] [address] [place] [address] documented as of this encounter
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
--- OUTSIDE RECORDS SUMMARY | 2022-09-25 10:54 | XMS_ITS | Encounter Summary ---
:1990 Author Organization Jay Address [address] [place] [address] Care Team Providers Name Role Phone Bebeto Faulkner OD Unavailable Dana Powell DPM Unavailable [phone] Julian Santana MD Primary Care Provider Reason for Visit Reason Comments Suicidal Mental Health Problem Encounter Details Date Type Department Care Team Description 05/15/2022 - [facility] Sameera Yuan , WAFER FAB TECHNICIAN [facility] [address] [place], [place] [id number] Suicidal ideation; 05/19/2022 [facility] Emergency Dejan Munguia CNP [address] [place], [place] [address] Recurrent major depressive disorder, rem ission status unspecified (H); Dept Methamphetamine dependence ( H) [address] [place] [address] Social History Tobacco Use Types Packs/Day Years Used Date Smoking Tobacco: Every Day Cigarettes 1 7 Smokeless Tobacco: Current Chew Comments: declines quit lne 09-26-12 Alcohol Use Standard Drinks/Week Comments Yes 0 (1 standard drink = 0.6 oz pure about 6 bees once or twice a week alcohol) Sex Assigned at Date Recorded Not on file COVID-19 Exposure Response Date Recorded In the last 10 days, have you been in contact with No / Unsu re 05/15/2022 10:45 AM CDT someone who was confirmed or suspected to have Coronavirus/COVID-19? documented as of this encounter Last Filed Vital Signs Vital Sign Reading Time Taken Comments Blood Pressure 94/60 05/19/2022 8:13 AM CDT Pulse 81 05/19/2022 8:13 AM CDT Temperature 36.8 ??C (98.3 ??F) 05/19/2022 8:13 AM CDT Respiratory Rate 16 05/19/2022 8:13 AM CDT Oxygen Saturation 97% 05/19/2022 8:13 AM CDT Inhaled Oxygen Concentration - - Weight 90.7 kg (200 lb) 05/15/2022 10:54 AM CDT Height 175.3 cm (5' 9) 05/15/2022 10:54 AM CDT Body Mass Index 29.53 05/15/2022 10:54 AM CDT documented in this encounter Discharge Instructions Discharge InstructionsRodAlthea Morfin, [facility] - 05/18/2022 3:01 PM CDT Aftercare Plan If I am feeling unsafe or I am in a crisis, I will: Contact my established care providers Call the National Suicide Prevention Lifeline: [phone] Go to the nearest emergency room Call 911 Warning signs that I or other people might notice when a crisis is developing for me: Agitation or increased sleep and isolating Thoughts of suicide Things I am able to do on my own to cope or help me feel better: Breathing techniques Take medications as prescribed Things that I am able to do with others to cope or help me feel better: let them know how I'm doing and what I might need. Things I can use or do for distraction: listen to music, go for a walk, watch t.v. Changes I can make to support my mental health and wellness: meet with team and participate in groups at treatment People in my life that I can ask for help: my mom Your [facility] has a mental health crisis team you can call 21/06: [facility] Crisis [phone] (adults) [phone] (children) Other things that are important when I???m in crisis: let others know if I need help Crisis Lines Crisis Text Line Text 406223 You will be connected with a trained live crisis counselor to provide support. National Hope Line 1.800.SUICIDE [4767736] Community Resources Fast Tracker Linking people to mental health and substance use disorder resources SoThreeckFitBarkn.[email or web address] [place] Mental Health Warm Line Peer to peer support Wednesday thru Wednesday, 12 pm to 10 pm [phone] or Text Support to [address]97 National [place] on Mental Illness (ELAYNE) 832.170.7522 or 1.888.ELAYNE.HELPS Mental Health Apps My3 https://[email or web address]/ VirtualHopeBox [email or web address]-jfyt-[email or web address]/ Additional Information Today you were seen by a licensed mental health professional through Triage and Transition services,[facility] (P) for a crisis assessment in the Emergency Department at [facility]. It is recommended that you follow up with your established providers (psychiatrist, mental health therapist, and/or primary care doctor - as relevant) as soon as possible. Coordinators from [facility] will be calling you in the next 24-48 hours to ensure that you have the resources you need. You can also contact [facility] coordinators directly at [phone]. You may have been scheduled for or offeredan appointment with a mental health provider. [facility] maintains an extensive network of licensed behavioral health providers to connect patients with the services they need. We do not charge providers a fee to participate in our referral network. We match patients with providers based on a patient's specific needs, insurance coverage, and location. Our first effort will be to refer you to a provider within your care system, and will utilize providers outside your care system as needed. documented in this encounter Medications at Time of Discharge Medication Sig Dispensed Refills Start Date End Date buPROPion (WELLBUTRIN XL) Take 1 tablet (150 14 tablet 0 150 MG 24 hr tablet mg) by mouth every morning hydrOXYzine (ATARAX) 25 MG Take 1 tablet (25 mg) 30 tablet 0 05/18/2022 tablet by mouth every 6 hours as needed for itching or anxiety traZODone (DESYREL) 100 MG Take 1 tablet (100 30 tablet 0 0 05/19/2022 tablet mg) by mouth At Bedtime ADVIL 200 MG OR CAPS prn, per mom 0 09/18/2003 documented as of this encounter Progress Notes Jones Menjivar RN - 05/15/2022 3:08 PM CDT Pt is year old 31 male with history of bipolar 1, anxiety and depression, Meth, etoh and cannabis use disorder complicated with suicide attempt received from ED due to due increase depression and SI. Pt was dropped off at the ED by [facility] truck driver heavy where pt has been on treatment for about a week. Pt reports that he has been sleeping continues like 3-4 Days with no interest in doing things that he used to do. Pt told telegraphic typewriter repairer that he attempted suicide last month while in longterm by hanging admits SI but denies HI. Pt also told telegraphic typewriter repairer that he has attempted SI life tin to a total of 8 times. He had stopped stopped all his medications prior to going to treatment because he things they don't work. Pt is here voluntarily although the nurse in the ED put him on BELLE. Nursing and risk assessments completed. Assessments reviewed with LMHP and physician. Video monitoring in progress, patient informed. Admission information reviewed with patient. Patient given a tour of [facility] and instructionson using the facility. Questions regarding [facility] addressed. Pt search completed and belongings inven toried. documented in this encounter Consult Notes Savannah Garner LPCC - 05/15/2022 3:39 PM CDT Diagnostic Evaluation Consultation Crisis Assessment Patient was assessed: in person Patient location: [facility] Was a release of information signed: No. Reason: Guardian not present Referral Data and Chief Complaint John is a 31 year old who uses he/him pronouns. presented to the ED alone and was referred to the ED by community provider(s). Patient is presenting to the ED for the following concerns: suicidal ideation. Informed Consent and Assessment Methods Patient is under the guardianship of Pt's Mother Dayanara [phone]. Grain Buyer met with patient and spoke with guardian and explained the crisis assessment process, including applicable information disclosures and limits to confidentiality, assessed understanding of the process, and obtained consent to proceed with the assessment. Patient was observed to be able to participate in the assessment as evidenced by verbal understanding of the assessment process. Assessment methods included conducting a formal interview with patient, review of medical records, collaboration with medical staff, and obtaining relevant collateral information from family and community providers when available.. Over the course of this crisis assessment provided reassurance, offered validation, engaged patient in problem solving and disposition planning and provided psychoeducation. Patient's response to interventions was engaged and cooperative Summary of Patient Situation PT is a 31 year old male who was sent in to the ED from treatment for concerns of depression and suicidal ideation. PT reports that he is currently at [facility] under probation court order, however reports that this is his first community treatment and so far enjoys being there. PT reports that he has been sober since admission and states that his depression and anxiety has subsequently been higher. PT reported suicidal ideation to staff today whom sent him in for further eval. Brief Psychosocial History Pt has a long hx of substance abuse concerns and in and out of longterm or detox. PT reports IV meth usefor the last 10 years. PT denies any significant treatment for his mental health. Pt was in longterm for4 weeks prior to treatment. Pt reports current probation for non violent offenses. Pt has been under legal guardianship via his mother since he turned 20. Pt has no current outpatientpsychiatrist, therapist, or counseling case manager. Significant clinical history Pt has one previous admission as a teenager related to stressors as a youth. Pt reports that he recently completed some basic diagnostic testing which reported ADHD, Bipolar disorder, and PTSD. PT has not retested any cognitive concerns since guardianship started. PT reports a long hx of concerns of depression. PT actively endorses hopelessness, worthlessness, sadness. Pt endorses anxiety, rumination, and panic attacks. Pt denies any hx of hallucinations, visualor auditory. PT denies any psychosis concerns even when intoxicated. PT reported paranoia during into xication only. Pt denies any hx of luis miguel. PT presents as alert, oriented, calm and cooperative. Pt reports active suicidal ideation with planning to hang himself. PT states that he doesn't know why he hasn't acted on his plan at treatment. PT reports being tired of living like this. However PT is able to endorse protective factors such as his 3 kids and his mother whom he has a good relationship with. Pt hung himself in longterm less then a month ago and rec'd no MH care. He was cut down and reportedly stripped naked and left in a cell for 3 days. He was subsequently placed on Haldol. Pt denies any other attempts. PT denies any self harm or homicidal ideation. Collateral Information The following information was received from Carolyn RODGERS whose relationship to the patient is balance staff staker. Information was obtained via phone. Their phone number is # [phone] and they last had contactwith patient on today. If he is discharged this weekend back to treatment, contact the weekend phone suzanne Menard at [phone] How long have they been a resident: A week, he was discharged from longterm into treatment Why does patient live in the facility: Mental health and chemical health stability Significant changes to environment: New treatment. Legal status (Commitment, probation, guardian, etc.): She reports that his mother is his legal guardian, he is also under probation Has the patient made any comments about wanting to kill themselves/others: Yes, he reported suicidalthoughts today without planning. She notes that he attempted to hang himself in longterm and he was cut down. What happened today: She notes that he was skipping groups, sleeping, and the counselor went to assess him. He reported depression and suicidal thoughts. What is different about patient's functioning: They are concerned about his suicidal ideation with his lack of treatment from his recent attempt. He is currently taking Haldol 5mg BID that was prescribed in longterm. She believes that he has a trauma hx and was scared to come to the hospital. Concern about alcohol/drug use: No. He has been sober while in tx. He was IV Meth user. If d/c is recommended, can patient return to current living situation: Yes. If no, what needs to happen in order for patient to return: Additional information: The following information was received from Dayanara whose relationship to the patient is mother andlegal guardian. Information was obtained via phone. Their phone number is [phone] and they lasthad contact with patient on today. What happened today: She reports that she was notified he was being sent to the ED for further evaluation after talking about suicide. What is different about patient's functioning: She reports that his only MH admission was as an 20 year old. She reports that she has been attempting to have him stabilized and or assessed since. She reports the few times she has been able to get him in somewhere he was sent to detox or longterm. She reports a possible dx of bipolar and or anxiety. She states that she has guardianship for his mental health concerns and cognitive delay. She reports no new testing since guardianship was obtained at 20. She states that last month he hung himself in longterm and had to be cut down. They cut his clothes off andleft him naked for 3 days. She reports that they started Haldol for him in longterm without her consent. She reports that he struggles with on going drug use, mood lability, and suicidal ideation. Concern about alcohol/drug use: Yes IV Meth, everything What do you think the patient needs: stabilization Has patient made comments about wanting to kill themselves/others: Yes He physically hung himself a month ago. He has made previous suicide threats and previously overdosed which required 2 rounds of narcan. Made previous threats to crash car Hx of overdose, x 2 If d/c is recommended, can they take part in safety/aftercare planning: Yes . Other information: She consents to admission and or treatment. She consents to medication changes oradjustments. She sent in guardianship ppw which was forwarded to [facility] at [place]. Risk Assessment ESS-6 1.a. Over the past 2 weeks, have you had thoughts of killing yourself? Yes 1.b. Have you ever attempted to kill yourself and, if yes, when did this last happen? Yes 3 weeks ago, hanging 2. Recent or current suicide plan? Yes hanging 3. Recent or current intent to act on ideation? No 4. Lifetime psychiatric hospitalization? Yes 5. Pattern of excessive substance use? Yes 6. Current irritability, agitation, or aggression? No Scoring note: BOTH 1a and 1b must be yes for it to score 1 point, if both are not yes it is zero. All others are 1 point per number. If all questions 1a/1b - 6 are no, risk is negligible. If one of 1a/1b is yes, then risk is mild. If either question 2 or 3, but not both, is yes, then risk is automatically moderate regardless of total score. If both 2 and 3 are yes, risk is automatically high regardless of total score. Score: 4, high risk Does the patient have access to lethal means? No Does the patient engage in non-suicidal self-injurious behavior (NSSI/SIB)? no Does the patient have thoughts of harming others? No Is the patient engaging in sexually inappropriate behavior? no Current Substance Abuse Is there recent substance abuse? Meth Was a urine drug screen or blood alcohol level obtained: No Mental Status Exam Affect: Appropriate and Blunted Appearance: Appropriate Attention Span/Concentration: Attentive? Eye Contact: Engaged Fund of Knowledge: Appropriate Language /Speech Content: Fluent Language /Speech Volume: Soft Language /Speech Rate/Productions: Normal Recent Memory: Intact Remote Memory: Intact Mood: Anxious and Sad Orientation to Person: Yes Orientation to Place: Yes Orientation to Time of Day: Yes Orientation to Date: Yes Situation (Do they understand why they are here?): Yes Psychomotor Behavior: Normal Thought Content: Suicidal Thought Form: Intact History of commitment: No Medication Psychotropic medications: Yes. Pt is currently taking Haldol. Medication compliant: Yes. Recent medication changes: No Medication changes made in the last two weeks: No Current Care Team Primary Care Provider: No Psychiatrist: No Therapist: No Shot Polisher And Inspector: No CTSS or ARMHS: No ACT Team: No Other: [facility] [phone] Diagnosis Other Unspecified and Specified Bipolar and Related Disorder 296.80 (F31.9) Unspecified Bipolar and Related Disorder Substance-Related & Addictive Disorders 292.9 (F19.99) Unspecified Other or Unknown Substanace Related Disorder - primary Clinical Summary and Substation of Recommendations Grain Buyer at the time of assessment recommends that PT be admitted to inpatient for true diagnostic assessment, stabilization, and evaluation. Pt attempted suicide a month ago without appropriate treatment and con't to have on going suicidal ideation with plannin. Disposition Recommended disposition: Inpatient Mental Health Reviewed case and recommendations with attending provider. Attending Name: Lily Ng Attending concurs with disposition: Yes Patient concurs with disposition: Yes Guardian concurs with disposition: Yes Final disposition: Inpatient mental health . Inpatient Details (if applicable): Is patient admitted voluntarily:Yes, per guardian ??? Patient aware of potential for transfer if there is not appropriate placement? Yes ??? Patient is willing to travel outside of the [facility] for placement? No Behavioral Intake Notified? Yes: Date: 05/15 Time: Assessment Details Patient interview started at: 1500 and completed at: 1600. Total duration spent on the patient case in minutes: 1.0 hrs CPT code(s) utilized: 19365 - Psychotherapy for Crisis - 60 (30-74*) min MARIN Arriaga, DEC - Triage & Transition Services documented in this encounter ED Notes Yancy Keyes RN - 05/19/2022 9:32 AM CDT Discharge instructions reviewed with patient including follow-up care plan. Educated on medication regime and advised not to stop prescribed medication without consulting their physician. Reviewed safety plan and outpatient resources.Denies SI. All belongings which where brought into the hospital have been returned to patient. Discharged to [facility]. Yancy Keyes RN - 05/19/2022 8:15 AM CDT Awaken for breakfast and vitals. Mood stable. Denies suicidal ideation. [facility] called and will be picking patient up at 0930 to transport back to [facility]. ITT Yancy Keyes RN - 05/19/2022 7:51 AM CDT Resting comfortably John Mathis RN - 05/19/2022 6:57 AM CDT Pt soundly slept through the night. Respirations were even and unlabored. No signs of distress or acute issues noted. Will continue to monitor. Shanika Toribio RN - 05/18/2022 10:31 PM CDT Patient presented more euphoric and elated today after starting the Wellbutrin this morning. Patientstated, I feel like a million bucks after that magic pill. Patient was restless, pacing around theunit with another patient for the majority of the shift. Patient requested bedtime medications early. Grain Buyer consulted with the provider and Trazodone 100 mg was ordered for sleep. Denies SI, HI, and hallucinations at this time. As of now, the plan is to be on observation overnight and to discharge back to [facility] at 1030 tomorrow morning. Patient is aware and agreeable to plan. Discharge medications are in his locker. Althea Lock, [facility] - 05/18/2022 2:31 PM CDT [facility] Reassessment and Progress Note Client Name: John Gavin Date: May 18, 2022 Presenting issue that brought patient to the [facility] unit: depression, SI with plan Current presentation on the unit: much more engaged, with brighter affect, reporting that he feels ready to return to treatment. Current risk to self or others? No Summary of therapeutic interventions completed with patient: establishing rapport, CBT, discussion of safety/aftercare plan Treatment objectives addressed in this session: discussion of coping techniques, current presentation and plan for return to [facility] treatment Progress on treatment goals: progressing Additional collateral information: Spoke with Mom who is in agreement with pt's return to [facility].She was glad to hear that he is doing better. Also spoke with Paz at [facility] who checked to see if they could take pt back today and provide truck driver heavy. Unfortunately they can not take him back until tomorrow, but have scheduled a truck driver heavy to be here around 10:30 am tomorrow. Pt is aware and in agreement. Mental Status: Appearance: Appropriate Eye Contact: Good Psychomotor Behavior: Restless Attitude: Cooperative Interested Pleasant Orientation: All Speech Rate / Production: Normal/ Responsive Volume: Normal Mood: Normal Affect: Expansive , normal Thought Content: Clear Thought Form: Coherent Goal Directed Logical Insight: Good and Fair Plan: Will return to [facility] tomorrow (they are unable to take him today). Public Affairs Director from [facility] will be here around 10:30am, will call prior to leaving the facility. Mom (guardian) is in agreement as well. Disposition: Substance abuse disorder treatment Rationale for disposition: Pt reports feeling much better after getting plenty of sleep and medication change. He feels able to reach out for help if feeling significantly depressed or having thoughts of suicide. Reviewed assessment with attending provider: Rocky Fry NP Diagnosis: Unspecified Bipolar and Related Disorder Substance-Related & Addictive Disorders 292.9 Total time spent with patient:1.0 hrs CPT code: 40885 - Psychotherapy (with patient) - 30 (16-37*) min Deangelo Carr WELDING PROCESS SPECIALIST 05/15/2022 John Gavin 1990 Aftercare Plan If I am feeling unsafe or I am in a crisis, I will: Contact my established care providers Call the National Suicide Prevention Lifeline: [phone] Go to the nearest emergency room Call 911 Warning signs that I or other people might notice when a crisis is developing for me: Agitation or increased sleep and isolating Thoughts of suicide Things I am able to do on my own to cope or help me feel better: Breathing techniques Take medications as prescribed Things that I am able to do with others to cope or help me feel better: let them know how I'm doing and what I might need. Things I can use or do for distraction: listen to music, go for a walk, watch t.v. Changes I can make to support my mental health and wellness: meet with team and participate in groups at treatment People in my life that I can ask for help: my mom Your [facility] has a mental health crisis team you can call 21/06: [facility] Mobile Crisis [phone] (adults) [phone] (children) Other things that are important when I???m in crisis: let others know if I need help Crisis Lines Crisis Text Line Text 775604 You will be connected with a trained live crisis counselor to provide support. National Hope Line 1.800.SUICIDE [0023982] Community Resources Fast Tracker Linking people to mental health and substance use disorder resources Usentricn.org [place] Mental [facility] Warm Line Peer to peer support Wednesday thru Wednesday, 12 pm to 10 pm [phone] or [place] [address] [place] on Mental Illness (ELAYNE) 213.494.3816 or 1.888.ELAYNE.HELPS Mental Health Apps My3 [email or web address] [email or web address]/ VirtualHopeBox [email or web address]-ajc/ Additional Information Today you were seen by a licensed mental health professional through Triage and Transition services,[facility] ([facility]) for a crisis assessment in the Emergency Department at [facility]. It is recommended that you follow up with your established providers (psychiatrist, mental health therapist, and/or primary care doctor - as relevant) as soon as possible. Coordinators from [facility] will be calling you in the next 24-48 hours to ensure that you have the resources you need. You can also contact [facility] coordinators directly at [phone]. You may have been scheduled for or offeredan appointment with a mental health provider. [facility] maintains an extensive network of licensed behavioral health providers to connect patients with the services they need. We do not charge providers a fee to participate in our referral network. We match patients with providers based on a patient's specific needs, insurance coverage, and location. Our first effort will be to refer you to a provider within your care system, and will utilize providers outside your care system as needed. Dejan Munguia CNP - 05/18/2022 2:31 PM CDT [facility] Unit - Psychiatric Observation Discharge Summary [facility] Emergency Department Discharge Date: 05/18/2022 John Gavin Age: [age] year old Date of : 1990 Brief HPI & Initial ED Course Chief Complaint Patient presents with ??? Suicidal ??? Mental Health Problem HPI John Gavin is a 31 year old male with history notable for bipolar disorder, methamphetamine abuse, and hx of suicide attempt by hanging 1 month ago while incarcerated. He presented to the ED on05/17 in the setting of suicidal ideation. He was medically cleared for transfer to [facility] for further psychiatric treatment. Patient seen for follow-up today. Initially it was felt that patient would benefit from inpatient psychiatric hospitalization for depression and low motivation. Patient received his first dose of bupropion this morning with subsequent improvement in mood and motivation. He endorses feeling much better today. There was concern by staff that patient may be becoming hypomanic. On evaluation by telegraphic typewriter repairer, patient is not hyperverbal, no pressured speech, no racing thoughts. He is calm, cooperative, linear in thought. He is future-oriented, denying any suicidal ideation. Reports last month, he had attemptedto hang himself due to being incarcerated. He currently has not thoughts, plans, or intent to harm himself. He is agreeable to continue bupropion. He reports [facility] has a psychiatrist with whom he can follow-up for ongoing medication management. Physical Examination BP: 93/59 Pulse: 68 Temp: 97.5 ??F (36.4 ??C) Resp: 16 Height: 175.3 cm (5' 9) Weight: 90.7 kg (200 lb) SpO2: 98 % Physical Exam General: Appears stated age. Neuro: Alert and fully oriented. Extremities appear to demonstrate normal strength on visual inspection. Integumentary/Skin: no rash visualized, normal color Psychiatric Examination Appearance: awake, alert, adequately groomed, dressed in hospital scrubs and appeared as age stated Attitude: cooperative Eye Contact: good Mood: better Affect: appropriate and in normal range, mood congruent and reactive Speech: clear, coherent and normal prosody Psychomotor Behavior: no evidence of tardive dyskinesia, dystonia, or tics and intact station, gait and muscle tone Thought Process: logical, linear and goal oriented Associations: no loose associations Thought Content: no evidence of suicidal ideation or homicidal ideation, no evidence of psychotic thought, no auditory hallucinations present and no visual hallucinations present Insight: good Judgement: intact Oriented to: time, person, and place Attention Span and Concentration: intact Recent and Remote Memory: intact Language: able to name/identify objects without impairment Fund of Knowledge: intact with awareness of current and past events Results Labs Ordered and Resulted from Time of ED Arrival to Time of ED Departure COVID-19 VIRUS (CORONAVIRUS) BY PCR - Normal Result Value SARS CoV2 PCR Negative Observation Course The patient was found to have a psychiatric condition that would benefit from an observation stay inthe emergency department for further psychiatric stabilization and/or coordination of a safe disposition. The plan upon observation admission included serial assessments of psychiatric condition, potential administration of medications if indicated, further disposition pending the patient's psychiatric course during the monitoring period. Serial assessments of the patient's psychiatric condition were performed. Nursing notes were reviewed. During the observation period, the patient did not require medications for agitation, and did not require restraints/seclusion for patient and/or provider safety. After a period of working with the treatment team on the [facility] unit, the patient's mental state improved to allow a safe transition to outpatient care. After counseling on the diagnosis, work-up, and treatment plan, the patient was discharged. Close follow-up with a psychiatrist and/or therapist was recommended and community psychiatric resources were provided. Patient is to return to the ED if any urgent or potentially life-threatening concerns. Discharge Diagnoses: Final diagnoses: Suicidal ideation Recurrent major depressive disorder, remission status unspecified (H) Methamphetamine dependence (H) Treatment Plan: - Continue Wellbutrin XL 150 mg daily for treatment of depression. Patient noting improvements in mood, energy, motivation today. He does not appear manic or hypomanic. May ultimately benefit from the addition of a mood stabilizer moving forward but will defer this for now. - Continue hydroxyzine 25 mg q6h PRN for acute anxiety - Patient is future-oriented, denying any suicidal ideation. He is motivated to attend chemical dependency treatment. Recommend to defer inpatient psychiatric admission as of now and plan to return to inpatient chemical dependency treatment at [facility]. - Psychotherapy and medication management per [facility] At the time of discharge, the patient's acute suicide risk was determined to be low due to the following factors: Reduction in the intensity of mood/anxiety symptoms that preceded the admission, denialof suicidal thoughts, denies feeling helpless or helpless, not currently under the influence of alcohol or illicit substances, denies experiencing command hallucinations, no immediate access to firearms. The patient's acute risk could be higher if noncompliant with their treatment plan, medications, follow-up appointments or using illicit substances or alcohol. Protective factors include: social supports, stable housing -- Dejan Munguia CNP [facility] EMERGENCY DEPT [facility] Unit 05/18/2022 Dejan Munguia CNP 05/18/22 [id number] Yancy Keyes RN - 05/18/2022 12:58 PM CDT I feel like a million bucks- that pill you gave me this morning worked wonders. I am ready to get back to treatment. I have to go-I am court ordered Moving from chair to chair. Slightly pressured and euphoric. I was just tired and depressed when I came in -now I am not Denies any suicidal ideation. Althea Lock LICSW - 05/18/2022 12:13 PM CDT [facility] ED Note Per request from [facility] treatment was contacted to verify that they can take pt back into their program once he is ready to be released from [facility]. I spoke with VISHAL Mullen at [phone], who confirmed that they are expecting to accept him back into their program once he is stable and ready to return. Paz did request a phone call when pt transfers from [facility] to inpatient . DANIEL Pace Yancy Keyes RN - 05/18/2022 12:08 PM CDT Awake and requesting to go to treatment instead of Inpatient . Encouraged to take a shower and complete ADL's which he is doing. Will notify [facility] and psychiatry about his request. ITT Yancy Keyes RN - 05/18/2022 10:36 AM CDT Pt. remains isolative and withdrawn. Awaken for vitals and assisted to order breakfast. Prompted to complete ADL's but patient has yet to complete. Shanika Toribio RN - 05/17/2022 10:48 PM CDT Patient sleeping in sensory room A again. Respirations are even and unlabored. Will continue to monitor. Shanika Toribio RN - 05/17/2022 9:34 PM CDT Patient states that he is doing a little better today. Continues to sleep the majority of the day.However, patient got up for dinner and moved out to the milieu to sleep for a few hours rather than staying in the sensory room. Continues to endorse SI, but contracts for safety. Presents with a flat,blunted affect and is depressed in mood. Plan is still to be admitted to IP voluntarily. MD met withpatient today to discuss medications. Patient will start Wellbutrin tomorrow morning. Will continue to monitor overnight. Dalila Medina DO - 05/17/2022 3:00 PM CDT [facility] Unit - Psychiatric Consultation [facility] Emergency Department John Gavin Age: [age] year old Date of : 1990 History Chief Complaint Patient presents with ??? Suicidal ??? Mental Health Problem HPI John Gavin is a 31 year old male with history notable for bipolar disorder, methamphetamine abuse and past suicide attempt by hanging about 1 month ago while incarcerated who presents to the emergency room with suicidal ideation. Patient was evaluated by the ED doctor, who medically cleared patient to transfer to the [facility] unit for psychiatric assessment. Per Lily Ng CNP 05/15/22: On examination, patient is resting soundly and is difficult to wake to interview. He does answer questions with yes or no and provides little detail. She does endorse feeling depressed, overly tired, and suicidal. He is attending CD treatment at [facility] for the past two weeks and has been free from c hemicals. He has endorsed trauma in the past and feels anxiety stemming from this. His mother is hisguardian and is concerned for his safety. Per chart review, he has had little assessment as it pertains to mental health. He was started on haldol 5 mg BID in longterm for reasons he is unsure of. He is taking it and finds it sedating and does not feel his mood is improved. He is interested in further mental health treatment and would most likely benefit from inpatient treatment due to the severity of his last suicide attempt, risk for relapsing on methamphetamines, and limited diagnostic clarity. Patient is agreeable to transfer. 05/17/2022: Patient is being seen for a follow-up visit while on the [facility] unit. Patient had Haldol discontinued and has continued to sleep most of the day. He is not engaged much with staff at all. Attempted to engage with patient in the sensory room for interview during the middle of the day and he refused to get up and just laid on his mat. He wants to go back to chemical dependency treatment. He continues to be depressed. He lacks energy. He reports having little to no motivation. He did report being willing to start a medication. I spoke with the patient's mother via telephone today she was also agreeable to the patient starting an antidepressant. Past Medical History Past Medical History: Diagnosis Date ??? Attention deficit disorder with hyperactivity(314.01) ??? Obsessive-compulsive disorders depressive disorder 2010 ??? Phobia, unspecified Social phobia ??? Pneumonia, organism unspecified(486) 06/18/04 Hospitalized ??? Suicidal intent 2010 [facility] ??? Tic disorder, unspecified ??? Transitory tachypnea of ??? Unspecified delay in development(315.9) Language delay - resolved ??? Varicella without mention of complication Age 4 Chickenpox Past Surgical History: Procedure Laterality Date ??? HC CIRCUMCISION CLAMP/DEVICE ??? HC CYSTOURETHROSCOPY 06/22/03 ? ? HC REMOVAL ADENOIDS,PRIMARY,<12 Y/O 05/05/96 [facility] ? ? HC REMOVAL OF TONSILS,<12 Y/O 10/31/97 [facility] ??? HC REPAIR ING HERNIA,6MO-5YR,REDUC 03/13/94 (R) ? ? HC REPAIR INTERMED, WOUND TRUNK/ARM/LEG <=2.5 CM 03/23/96 Laceration (R) hand 5th finger ??? ZZC CYSTOSCOPY,URETERAL MEATOTOMY 07/18/97 ??? ZZHC CREATE EARDRUM OPENING,GEN ANESTH 05/21/95 (R) Myringotomy w tubes haloperidol (HALDOL) 5 MG tablet ADVIL 200 MG OR CAPS Allergies Allergen Reactions ??? Zithromax [Azithromycin Dihydrate] Hives ??? Doxycycline Nausea and Vomiting Family History Family History Problem Relation Age of Onset ??? Neurologic Disorder Mother migraine headaches ??? Neurologic Disorder Paternal Grandmother migraine headaches ??? Depression Father Committed suicide ??? Psychotic Disorder Father Mental illness ??? Alcohol/Drug Other Paternal family with history of depression,alcohol, drugs & social abuse ??? Respiratory Paternal Grandfather Emphysema ??? Hypertension Paternal Grandmother ??? Heart Disease Paternal Grandmother Heart [place] ??? Respiratory Father Asthma ??? Respiratory Mother Asthma ??? Respiratory Brother Asthma ??? Eye Disorder Maternal Uncle GLAUCOMA ??? Eye Disorder Maternal Grandmother CATARACTS Social History Social History Tobacco Use ??? Smoking status: Current Every Day Smoker Packs/day: 1.00 Years: 7.00 Pack years: 7.00 Types: Cigarettes ??? Smokeless tobacco: Current User Types: Chew ??? Tobacco comment: declines quit lne 09-26-12 Substance Use Topics ??? Alcohol use: Yes Comment: about 6 bees once or twice a week ??? Drug use: Yes Frequency: 5.0 times per week Types: Marijuana Past medical history, past surgical history, medications, allergies, family history, and social history were reviewed with the patient. No additional pertinent items. Review of Systems A complete review of systems was performed with pertinent positives and negatives noted in the HPI, and all other systems negative. Physical Examination BP: 126/71 Pulse: 81 Temp: 96.9 ??F (36.1 ??C) Resp: 16 Height: 175.3 cm (5' 9) Weight: 90.7 kg (200 lb) SpO2: 97 % Physical Exam General: Appears stated age. Neuro: Alert and fully oriented. Extremities appear to demonstrate normal strength on visual inspection. Integumentary/Skin: no rash visualized, normal color Psychiatric Examination Appearance: Patient laying on his mat, lethargic, tired appearing, disheveled Attitude: uncooperative Eye Contact: poor Mood: depressed Affect: mood congruent Speech: mumbling Psychomotor Behavior: Difficult to assess since just laid on the mat without moving much Thought Process: Difficult to assess since not very engaged Associations: no loose associations Thought Content: Poverty of much content Insight: Difficult to assess Judgement: Difficult to assess Oriented to: Person, time, place Attention Span and Concentration: poor Recent and Remote Memory: Difficult to assess Language: Difficult to assess Fund of Knowledge: Difficult to assess ED Course Labs Ordered and Resulted from Time of ED Arrival to Time of ED Departure COVID-19 VIRUS (CORONAVIRUS) BY PCR - Normal Result Value SARS CoV2 PCR Negative Assessments & Plan (with Medical Decision Making) Patient presenting with suicidal ideation complicated by past suicide attempt and engaging in chemical dependency treatment. Patient currently awaiting psychiatric inpatient placement. Nursing notes reviewed noting no acute issues. Patient recently discontinued Haldol since there is no clear indication for continuing the medication. Since it is taking so long for bed placement and patient continues to be incredibly depressed and lethargic on the unit, I recommend a trial with Wellbutrin XL. Discussed risks and benefits with timothy tripathi's guardian/mother via telephone today. We will need to watch for hypomanic/manic behaviors, worsening anxiety, worsening agitation, worsening tics, and any other worsening potential behaviors or symptoms on Wellbutrin XL. I am hopeful he might have more energy, improved mood, less apathy, improved f ocus and concentration on Wellbutrin XL. His bipolar disorder diagnosis is not incredibly clear. If Wellbutrin XL is too activating, he may need a mood stabilizer along with Wellbutrin XL, but I would not necessarily recommend Haldol again. Discussed decreased seizure threshold of Wellbutrin XL with tyson spear's mother. Patient reportedly with no seizure history. I have reviewed the assessment completed by the [facility]. Preliminary diagnosis: ICD-10-CM 1. Suicidal ideation R45.851 2. Recurrent major depressive disorder, remission status unspecified (H) F33.9 3. Methamphetamine dependence (H) F15.20 Treatment Plan: -Start Wellbutrin XL 150 mg daily morning of 05/18/2022 -Admit inpatient psychiatry for safety and stabilization. Continue to reassess, if improves with medication changes, could perhaps transfer back to chemical dependency treatment, especially if no beds available. -- Dalila Medina DO [facility] EMERGENCY DEPT [facility] Unit 05/15/2022 Dalila Medina DO 05/17/22 1600 Jones Menjivar RN - 05/17/2022 11:38 AM CDT Pt has been sleeping for the most part of this shift except getting up and ordering food repeatedly and going back to his room in the sensory room to sleep. Pt used the bath room and also told this telegraphic typewriter repairer that he wants to go back to [facility] instead of the plan inpatient agreed earlier. Pt has a blunt affect, calm mood and avoids eye contact. Pt denies SI nor hallucinations but admits that he sleeps a lot because that is the only way I can communicate with my dreams in my dreams. Psychiatrist updated on the change of heart about going inpatient. Shanika Toribio RN - 05/16/2022 9:52 PM CDT Patient continues to present with a flat, blunted affect and is depressed in mood. Still is endorsing SI, but contracts to safety while on the unit. He spent the majority of the shift sleeping in sensory room A. No medications were given this shift. Remains pleasant and cooperative. Will continue to monitor until IP bed placement is found. Shanika Toribio RN - 05/16/2022 4:50 PM CDT Patient ordered and ate dinner. Jones Menjivar RN - 05/16/2022 1:54 PM CDT Pt has been sleeping entire shift except to get up and use the bath room or grab some snacks. Pt hashad a calm mood, pleasant and cooperative, ordered both meals. Continues to rest in the sensory roomA. Shanika Toribio RN - 05/15/2022 9:48 PM CDT Patient slept the majority of the shift. He woke up for his assessments with [facility] staff and the provider. He also woke up to eat dinner. Plan is for the patient to be admitted to inpatient psychiatry voluntarily. Patient is aware and agreeable to go. Continues to endorse SI, but contracts for safety while on the unit. Denies HI and hallucinations. Presented withdrawn, isolative and depressed in mood.Patient plans to sleep in sensory room A. Will continue to monitor until bed placement is found. Savannah Garner LPCC - 05/15/2022 8:28 PM CDT Grain Buyer updated mother/legal guardian with POC for inpatient.. Lily Ng APRN CNP - 05/15/2022 8:26 PM CDT [facility] Unit - Psychiatric Consultation [facility] Emergency Department John Gavin Age: [age] year old Date of : 1990 History Chief Complaint Patient presents with ??? Suicidal ??? Mental Health Problem HPI John Gavin is a 31 year old male with history notable for bipolar disorder, methamphetamine abuse and past suicide attempt by hanging about 1 month ago while incarcerated who presents to the EDwith suicidal ideation. Patient was evaluated by the ED provider, who medically cleared patient to [facility]a mercer to [facility] for psychiatric assessment, this is reviewed along with all pertinent labs and tests performed. On examination, patient is resting soundly and is difficult to wake to interview. He does answer questions with yes or no and provides little detail. She does endorse feeling depressed, overly tired, and suicidal. He is attending CD treatment at [facility] for the past two weeks and has been free from c hemicals. He has endorsed trauma in the past and feels anxiety stemming from this. His mother is hisguardian and is concerned for his safety. Per chart review, he has had little assessment as it pertains to mental health. He was started on haldol 5 mg BID in longterm for reasons he is unsure of. He is taking it and finds it sedating and does not feel his mood is improved. He is interested in further mental health treatment and would most likely benefit from inpatient treatment due to the severity of his last suicide attempt, risk for relapsing on methamphetamines, and limited diagnostic clarity. Patient is agreeable to transfer. Past Medical History Past Medical History: Diagnosis Date ??? Attention deficit disorder with hyperactivity(314.01) ??? Obsessive-compulsive disorders depressive disorder 2010 ??? Phobia, unspecified Social phobia ??? Pneumonia, organism unspecified(486) 06/18/04 Hospitalized ??? Suicidal intent 2010 [facility] ??? Tic disorder, unspecified ??? Transitory tachypnea of ??? Unspecified delay in development(315.9) Language delay - resolved ??? Varicella without mention of complication Age 4 Chickenpox Past Surgical History: Procedure Laterality Date ??? HC CIRCUMCISION CLAMP/DEVICE ??? HC CYSTOURETHROSCOPY 06/22/03 ? ? HC REMOVAL ADENOIDS,PRIMARY,<12 Y/O 05/05/96 [facility] ? ? HC REMOVAL OF TONSILS,<12 Y/O 10/31/97 [facility] ??? HC REPAIR ING HERNIA,6MO-5YR,REDUC 03/13/94 (R) ? ? HC REPAIR INTERMED, WOUND TRUNK/ARM/LEG <=2.5 CM 03/23/96 Laceration (R) hand 5th finger ??? ZZC CYSTOSCOPY,URETERAL MEATOTOMY 07/18/97 ??? ZZHC CREATE EARDRUM OPENING,GEN ANESTH 05/21/95 (R) Myringotomy w tubes haloperidol (HALDOL) 5 MG tablet ADVIL 200 MG OR CAPS Allergies Allergen Reactions ??? Zithromax [Azithromycin Dihydrate] Hives ??? Doxycycline Nausea and Vomiting Family History Family History Problem Relation Age of Onset ??? Neurologic Disorder Mother migraine headaches ??? Neurologic Disorder Paternal Grandmother migraine headaches ??? Depression Father Committed suicide ??? Psychotic Disorder Father Mental illness ??? Alcohol/Drug Other Paternal family with history of depression,alcohol, drugs & social abuse ??? Respiratory Paternal Grandfather Emphysema ??? Hypertension Paternal Grandmother ??? Heart Disease Paternal Grandmother [place], [place] ??? Respiratory Father Asthma ??? Respiratory Mother Asthma ??? Respiratory Brother Asthma ??? Eye Disorder Maternal Uncle GLAUCOMA ??? Eye Disorder Maternal Grandmother CATARACTS Social History Social History Tobacco Use ??? Smoking status: Current Every Day Smoker Packs/day: 1.00 Years: 7.00 Pack years: 7.00 Types: Cigarettes ??? Smokeless tobacco: Current User Types: Chew ??? Tobacco comment: declines quit lne 09-26-12 Substance Use Topics ??? Alcohol use: Yes Comment: about 6 bees once or twice a week ??? Drug use: Yes Frequency: 5.0 times per week Types: Marijuana Past medical history, past surgical history, medications, allergies, family history, and social history were reviewed with the patient. No additional pertinent items. Review of Systems A complete review of systems was performed with pertinent positives and negatives noted in the HPI, and all other systems negative. Physical Examination BP: 126/71 Pulse: 81 Temp: 96.9 ??F (36.1 ??C) Resp: 16 Height: 175.3 cm (5' 9) Weight: 90.7 kg (200 lb) SpO2: 97 % Physical Exam General: Appears stated age. Neuro: Alert and fully oriented. Extremities appear to demonstrate normal strength on visual inspection. Integumentary/Skin: no rash visualized, normal color Psychiatric Examination Appearance: fatigued, somnolent and cooperative Attitude: cooperative Eye Contact: poor Mood: depressed Affect: mood congruent Speech: mumbling Psychomotor Behavior: no evidence of tardive dyskinesia, dystonia, or tics Thought Process: logical Associations: no loose associations Thought Content: no evidence of psychotic thought and passive suicidal ideation present Insight: good Judgement: intact Oriented to: time, person, and place Attention Span and Concentration: fair Recent and Remote Memory: limited Language: able to name/identify objects without impairment Fund of Knowledge: intact with awareness of current and past events ED Course Labs Ordered and Resulted from Time of ED Arrival to Time of ED Departure COVID-19 VIRUS (CORONAVIRUS) BY PCR - Normal Result Value SARS CoV2 PCR Negative Assessments & Plan (with Medical Decision Making) Patient presenting with suicidal ideation complicated by past suicide attempt and engaging in CD treatment . Nursing notes reviewed noting no acute issues. I have reviewed the assessment completed by the [facility]. The Prescription Drug Monitoring Program (PDMP) database was accessed to verify accuracy of patientsprescribed controlled substances. Preliminary diagnosis: ICD-10-CM 1. Suicidal ideation R45.851 2. Recurrent major depressive disorder, remission status unspecified (H) F33.9 3. Methamphetamine dependence (H) F15.20 Treatment Plan: -Transfer inpatient for suicidal ideation. -Stop haldol as there is no clear indication for this. -Will have comfort medications available while awaiting transfer: Tylenol 640 mg every 4 hours as needed pain Atarax 25-50 mg every 6 hours as needed anxiety Melatonin 3 mg nightly as needed Nicotine patch for nicotine withdrawal. -- Lily Ng APRN CNP [facility] EMERGENCY DEPT [facility] Unit 05/15/2022 Lily Ng APRN CNP 05/15/22 2310 Shanika Toribio RN - 05/15/2022 4:24 PM CDT Patient met with [facility] and ordered dinner. Now is sleeping while waiting to meet with the provider. Will continue to monitor. Sandy Patel, VISHAL - 05/15/2022 10:56 AM CDT Pt. Dropped off by inpatient truck driver heavy. Pt. Having thoughts of suicide, did have an attempt last month. Triage Assessment Row Name 05/15/22 1059 Triage Assessment (Adult) Airway WDL WDL Respiratory WDL Respiratory WDL WDL Skin Circulation/Temperature WDL Skin Circulation/Temperature WDL WDL Cardiac WDL Cardiac WDL WDL Peripheral/Neurovascular WDL Peripheral Neurovascular WDL WDL Cognitive/Neuro/Behavioral WDL Cognitive/Neuro/Behavioral WDL WDL Sameera Yuan CNP - 05/15/2022 10:44 AM CDT History Chief Complaint: Suicidal and Mental Health Problem HPI John Gavin is a 31 year old male who presents from [facility] for evaluation of suicidal ideation. The patient does have a history of bipolar and methamphetamine, cannabis, and alcohol use. Patient notes he has been in treatment for 1 week and has not used chemicals or drank alcohol. Does smoke tobacco daily. History of mental health admission for suicidal thoughts. In longterm 1 month ago started medication for anxiety which he quit. No attempts, coingestions. No homicidal thoughts. Denies hallucinations. ROS: Review of Systems Constitutional: Negative for chills, diaphoresis and fever. HENT: Negative for congestion, sore throat, trouble swallowing and voice change. Eyes: Negative for photophobia and visual disturbance. Respiratory: Negative for chest tightness and shortness of breath. Cardiovascular: Negative for chest pain. Gastrointestinal: Negative for nausea. Musculoskeletal: Negative for arthralgias, myalgias, neck pain and neck stiffness. Skin: Negative for rash. Neurological: Negative for dizziness, seizures, syncope, weakness and headaches. Psychiatric/Behavioral: Positive for suicidal ideas. Negative for agitation, behavioral problems, confusion, hallucinations and self-injury. The patient is nervous/anxious. All other systems reviewed and are negative. Allergies: Zithromax [Azithromycin Dihydrate] Doxycycline Medications: Haldol (given 05/14/2022) Diphenhydramine Loratadine Melatonin MiraLAX Pepto-Bismol Tums Vitamin C Narcan Past Medical History: Past Medical History: Diagnosis Date ??? Attention deficit disorder with hyperactivity(314.01) ??? Obsessive-compulsive disorders ??? Phobia, unspecified ??? Pneumonia, organism unspecified(486) 06/18/04 ??? Suicidal intent 2010 ??? Tic disorder, unspecified ??? Transitory tachypnea of ??? Unspecified delay in development(315.9) ??? Varicella without mention of complication Age 4 Past Surgical History: Past Surgical History: Procedure Laterality Date ??? HC CIRCUMCISION CLAMP/DEVICE ??? HC CYSTOURETHROSCOPY 06/22/03 ? ? HC REMOVAL ADENOIDS,PRIMARY,<12 Y/O 05/05/96 [facility] ? ? HC REMOVAL OF TONSILS,<12 Y/O 10/31/97 [facility] ??? HC REPAIR ING HERNIA,6MO-5YR,REDUC 03/13/94 (R) ? ? HC REPAIR INTERMED, WOUND TRUNK/ARM/LEG <=2.5 CM 03/23/96 Laceration (R) hand 5th finger ??? ZZC CYSTOSCOPY,URETERAL MEATOTOMY 07/18/97 ??? ZZHC CREATE EARDRUM OPENING,GEN ANESTH 05/21/95 (R) Myringotomy w tubes Family History: family history includes Alcohol/Drug in an other family member; Depression in his father; Eye Disorder in his maternal grandmother and maternal uncle; Heart Disease in his paternal grandmother; Hypertension in his paternal grandmother; Neurologic Disorder in his mother and paternal grandmother; Psychotic Disorder in his father; Respiratory in his brother, father, mother, and paternal grandfather. Social History: reports that he has been smoking cigarettes. He has a 7.00 pack-year smoking history. His smokelesstobacco use includes chew. He reports current alcohol use. He reports current drug use. Frequency: 5.00 times per week. Drug: Marijuana. PCP: Julian Santana Physical Exam Patient Vitals for the past 24 hrs: BP Temp Temp src Pulse Resp SpO2 Height Weight 05/15/22 1054 126/71 96.9 ??F (36.1 ??C) Temporal 81 16 97 % 1.753 m (5' 9) 90.7 kg (200 lb) Physical Exam Nursing notes reviewed. Vitals reviewed. General: Alert. Well kept. Eyes: Conjunctiva non-injected, non-icteric. Neck/Throat: Moist mucous membranes. Normal voice. Cardiac: Regular rhythm. Normal heart sounds. Pulmonary: Clear and equal breath sounds bilaterally. Musculoskeletal: Normal gross range of motion of all 4 extremities. Neurological: Alert and oriented x4. Skin: Warm and dry. Normal appearance of visualized exposed skin without rashes or petechiae. Psych: Affect normal. Good eye contact. --Physical appearance, attire: Appears stated age. Hygiene well groomed. Eye contact at examiner. --Speech regular, speech volume regular, speech quality fluid. --Cognitive, perceptual reality based. --Orientation to time, place, person and situation. --Hallucinations: None. --General behavioral tone: Cooperative. --Psychomotor activity: No problem noted. Gait: No problem. --Mood normal. Affect congruent and appropriate. Emergency Department Course Laboratory: Labs Ordered and Resulted from Time of ED Arrival to Time of ED Departure COVID-19 VIRUS (CORONAVIRUS) BY PCR - Normal Result Value SARS CoV2 PCR Negative Emergency Department Course: Reviewed: I reviewed nursing notes, vitals and past medical history Assessments: 1214 I obtained history and examined the patient as noted above. 1430 I rechecked the patient and explained findings. Consults: 1430 I consulted with [facility] Interventions: Medications hydrOXYzine (ATARAX) tablet 25 mg (has no administration in time range) nicotine Patch in Place (has no administration in time range) nicotine (NICODERM CQ) 14 MG/24HR 24 hr patch 1 patch (has no administration in time range) Disposition: The patient was transferred to [facility]. Impression & Plan Medical Decision Making: John Gavin is a 31 year old male who presents from [facility] for evaluation of suicidal ideation. The patient does have a mental health history and history of suicidal ideation requiring hospitalization. He does note he has been taking [facility] and denies use of alcohol or chemicals. He states his thoughts of suicidality are increasing over the last 2weeks. He has not taken any medications or done anything to harm himself and does not have a specific plan. He denies homicidal ideation. The patient is a daily nicotine smoker andis requesting a nicotine patch which was provided. COVID testing does return negative. He is medically clear for transfer [facility]. Patient was placed on an BELLE [facility] Patient did not require anxiolysis or sedation while in the emergency department. Diagnosis: ICD-10-CM 1. Suicidal ideation R45.851 05/15/2022 Sameera Yuan CNP Heppner, Peggy, CNP 05/15/22 1441 documented in this encounter Miscellaneous Notes Safe - Savannah Garner LPCC - 05/15/2022 4:21 PM CDT John Gavin May 15, 2022 SAFE Note Critical Safety Issues: suicidal ideation ??? Current Suicidal Ideation/Self-Injurious Concerns/Methods: Asphyxiation ??? Current or Historical Inappropriate Sexual Behavior: No, as a minor he was a registered offender. This was dropped as he became an adult ??? Current or Historical Aggression/Homicidal Ideation: None - N/A ??? Triggers: depression Guardianship Status: [facility] Guardian: is under the guardianship of Dayanara hudson. . Guardianship paperwork is not in [facility] / [place] ACP tab. Guardian has been contacted with request for paperwork. [facility] has been contacted via email, copying Extended Care team. PPW was rec'd and for warded. This patient is a child/adolescent: No This patient has additional special visitor precautions: No Updated care team: Yes: For additional details see full [facility] assessment. MARIN Arriaga documented in this encounter Plan of Treatment Not on filedocumented as of this encounter Procedures Procedure Name Priority Date/Time Associated Diagnosis Comme nts COVID-19 VIRUS STAT 05/15/2022 12:25 PM Result s for this (CORONAVIRUS) BY CDT procedure a re in PCR the results section. documented in this encounter Results Asymptomatic COVID-19 Virus (Coronavirus) by PCR Nasopharyngeal (05/15/2022 12:25 PM CDT) Analysis Performed At Patho logist Time Signature SARS CoV2 PCR Negative Negative 05/15/2022 LABORATORY 1:39 PM CDT Comment: NEGATIVE: SARS-CoV-2 (COVID-19) RNA not detected, presumed negative. Specimen Anatomical Location / Collection Method Collection Jorge e Received Time (Source) Laterality / Volume Swab NASOPHARYNGEAL Non-blood 05/15/2022 12:25 STRUCTURE / Unknown Collection / PM CDT 12:33 PM CDT Unknown Narrative LABORATORY - 05/15/2022 1:39 PM CDT Testing was performed using the Xpert Xpress SARS-CoV-2 Assay on the [employer]. A dditional information about this Emergency Use Authorization (EUA) a ssay can be found via the Lab Guide. This test should be ordered for t he detection of SARS-CoV-2 in individuals who meet SARS-CoV-2 clinical and/or epidemiological criteria. Test performance is unknown in asymptomatic patients. This test is for in vitro diagnostic use unde r the FDA EUA for laboratories certified under CLIA to per form high complexity testing. This test has not been FDA cleared or ap proved. A negative result does not rule out the presence of PCR in hibitors in the specimen or target RNA in concentration below the li sabrina of detection for the assay. The possibility of a false negati ve should be considered if the patient's recent exposure or clinica l presentation suggests COVID-19. This test was validated by the [facility]. This laboratory is certified under the Clinical Laboratory Improvement Amendments of 1988 (CLIA-88) as qualified to perform high complexity laboratory testing. Sameera Yuan WAFER [facility] TECHNICIAN LAB - MICRO GENERAL ORDERABL ES Performing Organization Address City/State/ZIP Code [place] [address] Care [facility] [address], Room [address] documented in this encounter Visit Diagnoses Diagnosis Suicidal ideation Recurrent major depressive disorder, rem ission status unspecified (H) Methamphetamine dependence (H) Amphetamine and other psychostimulant de pendence, unspecified Suicidal ideation Methamphetamine dependence (H) Amphetamine and other psychostimulant de pendence, unspecified Recurrent major depressive disorder, rem ission status unspecified (H) documented in this encounter Admitting Diagnoses Diagnosis Methamphetamine dependence (H) Amphetamine and other psychostimulant de pendence, unspecified documented in this encounter Administered Medications Inactive Administered Medications - up to 3 most recent administrations Medication Order MAR Action Action Date Dose Rate Site acetaminophen (TYLENOL) tablet 650 Given 05/18/2022 8:16 PM CDT 650 mg mg 650 mg, Oral, EVERY 4 HOURS PRN, mild pain, fever, Starting on Wed05/15/22 at 2027, Maximum acetaminophen dose from all sources = 75 mg/kg/day not to exceed 4 grams/day. Given 05/17/2022 9:40 PM CDT 650 mg Given 05/16/2022 11:00 PM CDT 650 mg benzocaine (ORAJEL MAXIMUM STRENGTH) 20 % gel Mouth/Throat, 4 TIMES DAILY PRN, moderate pain, Starti ng on Wed05/18/22 at 1552 buPROPion (WELLBUTRIN XL) 24 hr tablet 1 50 mg Given 05/19/2022 6:22 AM CDT 150 mg 150 mg, Oral, DAILY, First dose on Wed05/18/22 at 0800, DO NOT CRUSH. Given 05/18/2022 9:17 AM CDT 150 mg hydrOXYzine (ATARAX) tablet 25-50 mg Given 05/18/2022 8:16 PM CDT 50 mg 25-50 mg, Oral, EVERY 6 HOURS PRN, anxiety, Starting on Wed05/15/22 at 2029 Given 05/18/2022 3:14 PM CDT 50 mg Given 05/17/2022 9:40 PM CDT 50 mg ibuprofen (ADVIL/MOTRIN) tablet 600 mg 600 mg, Oral, EVERY 6 HOURS PRN, moderat e pain, inflammatory pain, Starting on Wed05/18/22 at 1552, Give with food. melatonin tablet 3 mg Given 05/18/2022 8:16 PM CDT 3 mg 3 mg, Oral, AT BEDTIME PRN, sleep, Starting on Wed05/15/22 at 2030 Given 05/17/2022 9:40 PM CDT 3 mg Given 05/16/2022 10:59 PM CDT 3 mg nicotine (NICODERM CQ) 14 Patch/Med Applied 05/18/2022 9:17 AM CDT 1 patch Left Arm MG/24HR 24 hr patch 1 patch 1 patch, Transdermal, DAILY, Administer over 24 Hours, First dose on Wed05/15/22 at 1240, Reminder: Remove previous patch before applying new patch. Patch/Med Applied 05/17/2022 11:48 AM CDT 1 patch Left Arm Patch/Med Applied 05/16/2022 10:29 AM CDT 1 patch Right Arm nicotine (NICORETTE) gum 2 mg Given 05/19/2022 9:13 AM CDT 2 mg 2 mg, Buccal, EVERY 1 HOUR PRN, smoking cessation, Starting on Wed05/18/22 at 1422, Gum should be chewed slowly until it tingles, then placed between cheek and gum: when tingle gone, repeat process until tingle gone (about 30 minutes). Given 05/18/2022 5:15 PM CDT 2 mg Given 05/18/2022 4:14 PM CDT [address] First dose on Wed05/15/22 at 1240, Chart every shift, confirming that patch is still in place on patient (no barcode scan needed). Se e patch order for dose information. traZODone (DESYREL) tablet 100 mg Given 05/18/2022 8:16 PM CDT 100 mg 100 mg, Oral, AT BEDTIME, First dose on Wed05/18/22 at 2100 documented in this encounter Active and Recently Administered Medications Times are shown in CDT. Scheduled Medication Order 05/17/2022 05/18/2022 05/19/2022 buPROPion (WELLBUTRIN XL) 24 hr tablet 150 mg 0917 (Given - Provider: Yancy Keyes RN) 0622 (Given - Provider: Andrez Cole RN)0800 (Canceled Entry - Provider: Andrez Cole RN) 150 mg, Oral, DAILY, First dose on Wed05/18/22 at 0800, DO NOT C KAMARA. nicotine (NICODERM CQ) 14 MG/24HR 24 hr patch 1 patch 1145 (Patch/Med Removed - Provider: Jones Menjivar RN)1148 (Patch/Med Applied - Provider: Jones Menjivar RN) 0916 (Patch/Med Removed - Provider: Zakiya Keyes RN)0917 (Patch/Med Applied - Provider: Yancy Keyes RN) 0815 (Patch/Med Removed - Provider: Yancy Keyes RN)0817 (Not Given - Provider: Yancy Keyes RN - Reason: Patient/family refused) 1 patch, Transdermal, DAILY, Administer over 24 Hours, First dose on Wed05/15/22 at 1240, Reminder: Remove previous patch before applying new patch. nicotine Patch in Place 0440 (Canceled Entry - Provi dhara: Orders Generic Provider - Comment: Automatically canceled at discontinue of medication order)2132 (Patch in Place - Provider: Shanika Toribio RN) 0740 (Patch in Place - Provider: Yancy Keyes RN)0741 (Patch in Place - Provider: Yancy Keyes RN)1421 (Patch in Place - Provider: Yancy Keyes RN)2016 (Patch in Place - Provider: Shanika Toribio RN) 0624 (Patch in Place - Provider: Andrez barbosa RN) First dose on Wed05/15/22 at 1240, Chart every shift, confirming that patch is still in place on patient (no barcode scan needed). See patch order for dose information. traZODone (DESYREL) tablet 100 mg 2015 (Given - Provider: Shanika Toribio RN) 100 mg, Oral, AT BEDTIME, First dose on Wed05/18/22 at 2100 PRN Medication Order 05/17/2022 05/18/2022 05/19/2022 acetaminophen (TYLENOL) tablet 650 mg 2139 (Given - Pr ovider: Shanika Toribio RN) 2015 (Given - Provider: Shanika Toribio RN) 650 mg, Oral, EVERY 4 HOURS PRN, mild pa in, fever, Starting on Wed05/15/22 at 202, Maximum acetaminophen dose from all sources = 75 mg/kg/day not to exceed 4 grams/day. benzocaine (ORAJEL MAXIMUM STRENGTH) 20 % gel Mouth/Throat, 4 TIMES DAILY PRN, moderate pain, Starti ng on Wed05/18/22 at 1552 hydrOXYzine (ATARAX) tablet 25-50 mg 2139 (Given - Pro vider: Shanika Toribio RN) 1514 (Given - Provider: Yancy love RN)2015 (Given - Provider: Shanika Toribio RN) 25-50 mg, Oral, EVERY 6 HOURS PRN, anxiety, Starting on 05/15 at 2028 ibuprofen (ADVIL/MOTRIN) tablet 600 mg 600 mg, Oral, EVERY 6 HOURS PRN, moderat e pain, inflammatory pain, Starting on Wed05/18/22 at 1552, Give with food. melatonin tablet 3 mg 2139 (Given - Provider: Shanika Toribio RN) 2015 (Given - Provider: Shanika Toribio RN) 3 mg, Oral, AT BEDTIME PRN, sleep, Starting on Wed05/15/22 at 20 30 nicotine (NICORETTE) gum 2 mg 1429 (Give n - Provider: Yancy Keyes, VISHAL)1614 (Given - Provider: Shanika Toribio, RN)1715 (Given - Provider: Shanika Toribio, VISHAL) 0913 (Given - Provider: Yancy love RN) 2 mg, Buccal, EVERY 1 HOUR PRN, smoking cessation, Starting on Wed05/18/22 at 1422, Gum should be chewed slowly until it tingles, then placed between cheek and gum: when tingle gone, repeat process until tingle gone (about 30 minutes). documented in this encounter Care Teams Powder Coater Relationship Specialty Start Date End Date Bebeto Faulkner OD PCP - Ophthalmology 10/21/07 Dana Powell DPM PCP - Podiatry 02/16/08 [facility] [place] [address] [place] [address] Julian Santana MD PCP - General Family Practice 09/26/12 [facility] [place] [address] [place] [address] documented as of this encounter
--- OUTSIDE RECORDS SUMMARY | 2022-09-25 10:54 | XMS_ITS | Encounter Summary ---
:1990 Author Organization [facility] Address [address] [place] [address] Care Team Providers Name Role Phone Bebeto Faulkner Iman OD Unavailable Dana Powell DPM Unavailable [phone] Julian Santana MD Primary Care Provider Reason for Visit Reason Onset Date Comments MH/CD Inpatient 05/16/2022 Encounter Details Date Type Department Care Team Description 05/16/2022 Telephone [facility] Generic, Behavioral MH/ CD Inpatient Behavioral Health In reij Gonzalez MD [address] [place] [id number] Social History Tobacco Use Types Packs/Day Years [...] have Coronavirus/COVID-19? documented as of this encounter Miscellaneous Notes Telephone Encounter - Candice Aggarwal NP - 05/17/2022 5:24 PM CDT Updated Bed Search @5pm: [place] for placement [facility] @ [facility] @ cap [facility] @ cap [facility] @ cap [facility] @ cap [facility] @ cap [facility] @ [facility] @ cap [facility] @ cap Pt remains on work list until appropriate placement is available Telephone Encounter - Cora Bowman - 05/16/2022 11:54 PM CDT R: Urine drug screen needs to be collected when able ?? No appropriate beds currently available within the [facility] system. Bed search update??(metro)??@??23:54:? [facility]: @ cap per website ? [facility]:@ cap per website ? [facility]: @ cap per website ? [facility]: @ cap per website ? [facility]: @ cap per website ? [facility]: @ cap per website ? [facility]: @ cap per website ?? Pt??remains??on work list until appropriate placement is available Telephone Encounter - Cora Bowman - 05/16/2022 4:53 PM CDT R: Urine drug screen needs to be collected No appropriate beds currently available within the [facility] system. Bed search update (metro) @ 16:54: ? [facility]: @ cap per website ? [facility]:@ cap per website ? [facility]: @ cap per website ? [facility]: @ cap per website ? [facility]: @ cap per website ? [facility]: @ cap per website ? [facility]: @ cap per website ?? Pt remains on work list until appropriate placement is available Telephone Encounter - Cora Bowman - 05/16/2022 1:24 AM CDT R: Urine drug screen needs to be collected when able No appropriate beds currently available within the [facility] system. Bed search update (metro) @ 01:44: [facility]: @ cap per website [facility]:@ cap per website [facility]: @ cap per website [facility]: @ cap per website [facility]: @ cap per website [facility]: @ cap per website [facility]: @ cap per website Pt remains on work list until appropriate placement is available documented in this encounter Plan of Treatment Not on filedocumented as of this encounter Visit Diagnoses Not on filedocumented in this encounter Care Teams Investigator Utility Bill Complaints Relationship Specialty Start Date End Date Bebeto Faulkner OD PCP - Ophthalmology 10/21/07 Dana Powell DPM PCP - Podiatry 02/16/08 [facility] [place] [address] [facility] [address] [place] [address] Julian Santana MD PCP - General Family Practice 09/26/12 [facility] [place] [address] [place] [address] documented as of this encounter
--- OUTSIDE RECORDS SUMMARY | 2022-09-25 10:54 | XMS_ITS | Encounter Summary ---
:1990 Author Organization [place] Address [address] [address] Care Team Providers Name Role Phone Bebeto Faulkner OD Unavailable Dana Powell DPM Unavailable [phone] Julian Santana MD Primary Care Provider Reason for Visit Reason Comments ACP Encounter Details Date Type Department Care Team Description 05/20/2022 Documentation Only [facility] [employer] Charity Izaguirre ACP [address] [facility] [address] [place] [address] [facility] [phone] [place] [address] Social History Tobacco Use Types Packs/Day Years [...] have Coronavirus/COVID-19? documented as of this encounter Plan of Treatment Not on filedocumented as of this encounter Visit Diagnoses Not on filedocumented in this encounter Care Teams [facility] Coordinator Relationship Specialty Start Date End Date Bebeto Faulkner, OD PCP - Ophthalmology 10/21/07 Dana Powell DPM PCP - Podiatry 02/16/08 [facility] [place] [address] [place] [address] Julian Santana MD PCP - General Family Practice 09/26/12 [facility] [place] [address] [place] [address] documented as of this encounter
--- OUTSIDE RECORDS SUMMARY | 2022-09-25 10:54 | XMS_ITS | Encounter Summary ---
:1990 Author Organization [place] Address [address] [facility] [place] [address] Care Team Providers Name Role Phone Ruperto Rey PhD Unavailable Unavailable Bebeto Faulkner OD Unavailable Dana Powell DPM Unavailable [phone] Julian Santana MD Primary Care Provider Reason for Visit Reason Comments Flu Shot Encounter Details Date Type Department Care Team Description 12/05/2012 Allied Health/Nurse [facility] in Flu Shot Visit [facility] [address] [place] [address] Social History Tobacco Use Types Packs/Day Years Used Date Smoking Tobacco: Every Day Cigarettes 1 7 Smokeless Tobacco: Current Chew Comments: declines quit lne 09-26-12 Alcohol Use Standard Drinks/Week Comments Yes 0 (1 standard drink = 0.6 oz pure about 6 bees once or twice a week alcohol) Sex Assigned at Date Recorded Not on file documented as of this encounter Progress Notes Concepción Hauser - 12/05/2012 10:50 AM CST John Gavin is a 22 year old male. Patient received: FLUVIRIN INJECTION Patient Questionaire: Did you receive a flu vaccine last year? YES I have a fever or feel ill today? No I have an allergy to eggs, gelatin or thimerosal? No I have had a reaction to the flu vaccine the past? No I have had Guillain-Litchfield??? syndrome? No I have a Latex Allergy? 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 documented in this encounter Plan of Treatment Not on filedocumented as of this encounter Visit Diagnoses Diagnosis Need for prophylactic vaccination and in oculation against influenza - Primary documented in this encounter Care Teams Alligator Trapper Relationship Specialty Start Date End Date Ruperto Rey, PhD PCP - Mental 12/21/00 05/14/22 XXX NO INFO FOUND XXX Health/Behavioral Medicine Bebeto Faulkner, OD PCP - Ophthalmology 10/21/07 Dana Powell, PCP - Podiatry 02/16/08 DPM [facility] [place] [address] [place], [place] [id number] Julian Santana MD PCP - General Family Practice 09/26/12 [facility] [place] [address] [place] [address] documented as of this encounter
--- OUTSIDE RECORDS SUMMARY | 2022-09-25 10:54 | XMS_ITS | Encounter Summary ---
:1990 Author Organization [place] Address [address] [facility] [place] [address] Care Team Providers Name Role Phone KatherinejumanaRuperto PhD Unavailable Unavailable Bebeto Faulkner OD Unavailable Dana Powell DPM Unavailable [phone] Julian Santana MD Primary Care Provider Reason for Visit Reason Comments Back Pain Back pain x 1 day denies inj ury. Encounter Details Date Type Department Care Team Description 12/06/2013 Office Visit [facility], Ami Back viktor n (Primary Dx) System in [place] [facility] [address] [facility] [address] [place] [phone] Social History Tobacco Use Types Packs/Day Years [...] Sign Reading Time Taken Comments Blood Pressure 134/77 12/06/2013 6:39 PM ENGAGEMENT QUALITY CONSULTANT Pulse 95 12/06/2013 6:39 PM ENGAGEMENT QUALITY CONSULTANT Temperature 37.4 ??C (99.3 ??F) 12/06/2013 6:39 PM ENGAGEMENT QUALITY CONSULTANT Respiratory Rate - - Oxygen Saturation 98% 12/06/2013 6:39 PM ENGAGEMENT QUALITY CONSULTANT Inhaled Oxygen Concentration - - Weight - - Height - - Body Mass Index - - documented in this encounter Progress Notes Vania Cota PA-C - 12/07/2013 8:43 AM CST The patient is a 23-year-old male who presents to Urgent Care today with the complaint of back pain that started since 1:00 a.m. this morning. Denies any heavy lifting. Denies any previous back injury. He denies any history of kidney stones. He is having mild tingling radiating to his right lower extremity. He denies any injury or trauma. He reports that the pain is a shooting pain that comes and goes. It seems to be worsening. No treatment tried prior to arrival. PHYSICAL EXAMINATION VITAL SIGNS: As noted in Epic. GENERAL APPEARANCE: This is a 23-year-old male in no acute distress. BACK EXAM: He is mildly to moderately tender to palpation over the right lumbar muscles. He is not tender over the thoracic spine or the lumbar spine. Mild muscle spasm noted, especially on the right side. There are no obvious deformities, swelling or ecchymosis noted. LUNGS: Clear to auscultation bilaterally. CHEST: Normal heart tones, S1 and S2. DIAGNOSTICS: Urinalysis in Urgent Care today is within normal limits. IMPRESSION/REPORT/PLAN Right lumbar back pain. The patient is given a prescription of Medrol Dosepak and Flexeril as prescribed in Epic. Also advised to use warm packs over the affected area. Advised to take ibuprofen as needed for the pain. Advised to return to the emergency room or Urgent Care if symptoms fail to improve or worsen. He is in agreement with the plan. SADIE Ellis/amari GEMENT QUALITY CONSULTANT documented in this encounter Plan of Treatment Not on filedocumented as of this encounter Procedures Procedure Name Priority Date/Time Associated Comments Diagnosis ROUTINE UA WITH Routine 12/06/2013 12:00 Back pain Results for this MICROSCOPIC REFLEX TO AM ENGAGEMENT QUALITY CONSULTANT proced ure are in CULTURE the results section. documented in this encounter Results (ABNORMAL) UA *Complete w/reflex to culture ([facility]) (12/06/2013 12:00 AM ENGAGEMENT QUALITY CONSULTANT) [facility] gist Method Time Signature Color Urine Straw [facility] [place] [facility] Appearance Urine Clear [facility] Glucose Urine Negative NEG mg/dL [facility] Bilirubin Urine Negative NEG [facility] Ketones Urine Negative NEG mg/dL [facility] Specific [place] 1.002 (L) 1.003 - [facility] Urine 1.035 [facility] Blood Urine Negative NEG [facility] pH Urine 5.5 5.0 - 7.0 [facility] pH [facility] Protein Albumin Negative NEG mg/dL [facility] Urine [facility] Urobilinogen Normal 0.0 - 2.0 [facility] mg/dL mg/dL [facility] Nitrite Urine Negative NEG [facility] Leukocyte Negative NEG [facility] Esterase Urine [facility] Source Midstream [facility] Urine [facility] WBC Urine 0 0 - 2 [facility] /HPF [facility] RBC Urine <1 0 - 2 [facility] /HPF [facility] Specimen (Source) Anatomical Collection Method Collection Time Re ceived Time Location / / Volume Laterality Urine specimen 12/06/2013 12/06/2013 7: 13 (specimen) PM ENGAGEMENT QUALITY CONSULTANT Vania Cota PA-C LAB - URINE ORDERABLES Performing Organization Address City/State/ZIP Code Phon e Number [facility] [facility] [address] documented in this encounter Visit Diagnoses Diagnosis Back pain - Primary Backache, unspecified documented in this encounter Care Teams Guest Associate Relationship Specialty Start Date End Date Ruperto Rey, PhD PCP - Mental 12/21/00 05/14/22 XXX NO INFO FOUND XXX Health/Behavioral Medicine Bebeto Faulkner, OD PCP - Ophthalmology 10/21/07 Dana Powell, PCP - Podiatry 02/16/08 DPM [facility] [place] [address] [place] [address] Julian Santana MD PCP - General Family Practice 09/26/12 [facility] [address] [place] [address] documented as of this encounter
--- OUTSIDE RECORDS SUMMARY | 2022-09-25 10:54 | XMS_ITS | Clinical Summary ---
:1990 Author Organization [place] Address [address] [facility] [place] [address] Care Team Providers Name Role Phone Brain Faulknermatthew Valerio OD Unavailable Dana Powell DPM Unavailable [phone] Julian Santana MD Primary Care Provider Allergies Active Allergy Reactions Severity Noted Date Comments Doxycycline Nausea and Vomiting 03/11/2012 Azithromycin Dihydrate Hives Medium 05/12/2005 Medications Medication Sig Dispensed Refills Start Date End Date Status ADVIL 200 MG OR prn, per mom 0 09/18/2003 Active CAPS buPROPion Take 1 tablet 14 tablet 0 05/18/2022 Activ e (WELLBUTRIN XL) (150 mg) by 150 MG 24 hr mouth every tablet morning hydrOXYzine Take 1 tablet 30 tablet 0 05/18/2022 Act rboerto (ATARAX) 25 MG (25 mg) by tablet mouth every 6 hours as needed for itching or anxiety traZODone Take 1 tablet 30 tablet 0 05/19/2022 Activ e (DESYREL) 100 MG (100 mg) by tablet mouth At Bedtime haloperidol Take 5 mg by 0 05/18/2022 Disc ontinued (HALDOL) 5 MG mouth daily tablet Active Problems Problem Noted Date Suicidal ideation 05/18/2022 Methamphetamine dependence 05/18/2022 Recurrent major depressive disorder, remission status unspecified 05/18/2022 Bipolar I disorder, most recent episode (or current) u nspecified 01/07/2006 Constipation 03/12/2004 Overview: Problem list name updated by dalila emerson Provider to review Disturbance in sleep behavior 07/04/2003 Overview: Problem list name updated by automated p rocess. Provider to review Tic disorder 07/20/2002 Overview: Problem list name updated by automated p rocess. Provider to review Headache 06/08/2001 Overview: Problem list name updated by automated p rocess. Provider to review Attention deficit hyperactivity disorder (ADHD) Overview: Problem list name updated by automated p rocess. Provider to review Immunizations Name Administration Dates Next Due DTAP (<7y) 04/29/1998 HepB 11/12/1995, 06/24/1995, 05/21/1995 Hib (PRP-T) 06/26/1993, 04/04/1993, 1992 Historical DTP/aP 06/26/1993, 04/04/1993, 1992 Influenza (IIV3) PF 12/05/2012, 10/07/2005 MMR 04/29/1998, 04/28/1994 Mantoux Tuberculin Skin Test 06/20/1993 OPV, trivalent, live 04/29/1998, 04/28/1994, 04/04/1993, 1992 TD (ADULT, 7+) 07/17/2005 TDAP Vaccine (Boostrix) 11/01/2013 Tetramune (DtP/HIB) 04/28/1994 Varicella Pt Report Hx of 08/29/1994 Varicella/Chicken Pox Family History Medical History Relation Comments Respiratory Brother 2 Asthma Depression Father Committed suicide Psychotic Disorder Father Mental illness Respiratory Father Asthma Eye Disorder Maternal Grandmother CATARACTS Eye Disorder Maternal Uncle GLAUCOMA Neurologic Disorder Mother migraine headaches Respiratory Mother Asthma Alcohol/Drug Other Paternal family with history of depression,alcohol, drugs & social abuse Respiratory Paternal Grandfather Emphysema Heart Disease Paternal Grandmother Heart [place], [place] Hypertension Paternal Grandmother Neurologic Disorder Paternal Grandmother migraine headaches Relation Status Comments Brother 1 Alive X 2 Brother 2 Father (Age 11/95) Suicide Maternal Grandmother Maternal Uncle Mother Alive Other Paternal Grandfather Paternal Grandmother Social History Tobacco Use Types Packs/Day Years Used Date Smoking Tobacco: Every Day Cigarettes 1 7 Smokeless Tobacco: Current Chew Tobacco Cessation: Ready to Quit: No; Co unseling Given: Yes Comments: declines quit lne 09-26-12 Alcohol Use Standard Drinks/Week Comments Yes 0 (1 standard drink = 0.6 oz pure about 6 bees once or twice a week alcohol) Sex Assigned at Date Recorded Not on file Last Filed Vital Signs Vital Sign Reading [...] Mass Index 29.53 05/15/2022 10:54 AM CDT Plan of Treatment Health Maintenance Due Date Last Done Comments ANNUAL REVIEW OF HM ORDERS 1992 COVID-19 Vaccine (#1) 03/03/1993 Pneumococcal Vaccine: 1998 Pediatrics (0 to 5 Years) and At-Risk Patients (6 to 64 Years) (1 - PCV) HIV SCREENING 2007 HEPATITIS C SCREENING 2010 MEDICARE ANNUAL WELLNESS 2010 VISIT NICOTINE/TOBACCO CESSATION 09/26/2013 09/26/2012, 2 COUNSELING Q 1 YR INFLUENZA VACCINE (#1) 2022 12/05/2012, 12/05/2012, 10/07/2005, Additional history exists DTAP/TDAP/TD IMMUNIZATION 11/01/2023 11/01/2013, 06/20/2012 , (5 - Td or Tdap) 07/17/2005, Additional history exists ADVANCE CARE PLANNING 05/20/2027 05/20/2022 HEPATITIS B IMMUNIZATION Completed 11/12/1995, 11/12/1995, 06/24/1995, Additional history exists IPV IMMUNIZATION Completed 04/29/1998, 04/28/1994, 04/04/1993, Additional history exists MENINGITIS IMMUNIZATION Aged Out No longe r eligible based on patient 's age to complete this topic Insurance Payer Benefit Plan Subscriber ID Effective Phone Address Typ e / Group Dates MEDICARE MEDICARE [id number] 2012-Pres [phone] ATTN [place] ent 40 [address] [place] [address] [facility] [id number] 2021-Prese [phone] [address] [employer] [employer] 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 5 (Home) [facility] [phone] [place] [phone] 0 (Work) John Gavin Third Democrat Self 1990 [phone] (Home) [place] [address] [employer] Employer Related Employer 10/24/1972 [phone] [address] [address] 2 (Home) [facility] [phone] [place], [place] 2 [phone] (Work) [employer] Employer Related Employer 11/29/2009 [phone] [facility] 1 (Home) [place] [address] [phone] [place] 1 (Work) [phone] John Gavin Behavioral Self 1990 [phone] (Home) [place] [address] Advance Directives For more information, please contact: [phone] Documents on File Type Date Recorded Patient Group Fitness Instructor Explanati on Advance Directives and 05/20/2022 Dayanara (GUARDIAN) Cherellete r Legal Guardianship Living Will 02-15-2018 Advance Directives and 05/20/2022 L egal Emergency Living Will Guardianship to 02-15-2018 Care Teams Sem Manager Relationship Specialty Start Date End Date Bebeto Faulkner OD PCP - Ophthalmology 10/21/07 Dana Powell DPM PCP - Podiatry 02/16/08 [facility] [place] [address] [place], [place] [phone] Julian Santana MD PCP - General Family Practice 09/26/12 [facility] [place] [address] [place] [address]
--- OUTSIDE RECORDS SUMMARY | 2022-09-25 10:54 | XMS_ITS | Encounter Summary ---
:1990 Author Organization [place] Address [address] [place] [address] Care Team Providers Name Role Phone Mariely Osuna MD Primary Care Provider Ruperto Rey PhD Unavailable Unavailable Bebeto Faulkner OD Unavailable Dana Powell DPM Unavailable [phone] Encounter Details Date Type Department Care Team Description 04/24/2012 Results Only [facility] Adelfo Gandhi MD in [facility] [address] [place] [address] [place] [address] [place] [address] [phone] (Wo rk) Social History Tobacco Use Types Packs/Day Years Used Date Smoking Tobacco: Passive Smoke Exposure - Never Smoker Smokeless Tobacco: Never Alcohol Use Standard Drinks/Week Comments Not Asked 0 (1 standard drink = 0.6 oz pure alcoho l) Sex Assigned at Date Recorded Not on file documented as of this encounter Plan of Treatment Not on filedocumented as of this encounter Procedures Procedure Name Priority Date/Time Associated Diagnosis Comme nts XR ABDOMEN 2 VIEWS Routine 04/24/2012 11:13 AM Re sults for this CDT procedure are i n the results section. LIPASE STAT 04/24/2012 10:50 AM Results for this CDT procedure are i n the results section. documented in this encounter Results X-ray Abdomen 2 vw (04/24/2012 11:13 AM CDT) Anatomical Region Laterality Modality Abdomen/Pelvis Other Specimen (Source) Anatomical Collection Method Collection Time Re ceived Time Location / / Volume Laterality 04/24/2012 11:13 AM CDT Impressions 04/24/2012 11:41 AM CDT ABDOMEN 2 - 3 VIEW* ?April 24, 2012 1 1:13:00 AM ?? HISTORY: ??Pain. COMPARISON: None. FINDINGS: The gas pattern is normal. No free air. No abnormal calcifications are seen. IMPRESSION: Negative. Adelfo Gandhi MD IMG DIAGNOSTIC IMAGING ORDER TRACEY Lipase (04/24/2012 10:50 AM CDT) P athologist Signature Lipase 56 20 - 250 [facility] Specimen Anatomical Collection Method Collection Time Receive d Time (Source) Location / / Volume Laterality 04/24/2012 10:50 04/24/2012 AM CDT 10:51 AM CDT Adelfo Gandhi MD LAB - BLOOD ORDERABLES Performing Organization Address City/State/ZIP Code Phon e Number [facility] [place] [place] [address] documented in this encounter Visit Diagnoses Not on filedocumented in this encounter Care Teams Nurse Anesthetist Relationship Specialty Start Date End Date Mariely Osuna MD PCP - General 06/26/04 09/25/12 [facility] [place] [address] [place] [address] Ruperto Rey, PhD PCP - Mental Health/Behavioral 12/21/00 XXX NO INFO FOUND XXX Medicine Bebeto Faulkner, OD PCP - Ophthalmology 10/21/07 Dana Powell, PCP - Podiatry 02/16/08 DPM [facility] [place] [address] [place] [address] documented as of this encounter
--- OUTSIDE RECORDS SUMMARY | 2022-09-25 10:54 | XMS_ITS | Encounter Summary ---
:1990 Author Organization [place] Address [address] [place] [address] Care Team Providers Name Role Phone Ruperto Rey PhD Unavailable Unavailable Bebeto Faulkner OD Unavailable Dana Powell DPM Unavailable [phone] Julian Santana MD Primary Care Provider Reason for Visit Reason Comments Drug Screen pre employment for [employer] Encounter Details Date Type Department Care Team Description 01/30/2014 Office Visit [facility] Nurse, Frw Occ Health examination of System in [place] Med defined subpopulation Occupational Medicin e [address] (Primary Dx) [address] [facility] [employer] [place], [place] [address] [address] [place], [place] [phone] Social History Tobacco Use Types Packs/Day [...] documented as of this encounter Nursing Notes 01/30/2014 2:45 PM CST >> ARSH Tariq Jan 30, 2014 3:08 PM Pre employment UDS for [employer]. Uneventful collection. documented in this encounter Plan of Treatment Not on filedocumented as of this encounter Visit Diagnoses Diagnosis Health examination of defined subpopulat ion - Primary documented in this encounter Care Teams Pulp Press Tender Relationship Specialty Start Date End Date Ruperto Rey, PhD PCP - Mental 12/21/00 05/14/22 XXX NO INFO FOUND XXX Health/Behavioral Medicine Bebeto Faulkner, OD PCP - Ophthalmology 10/21/07 Dana Powell, PCP - Podiatry 02/16/08 DPM [facility] [place] [address] [place] [address] Julian Santana MD PCP - General Family Practice 09/26/12 [facility] [place] [address] [place] [address] documented as of this encounter
--- OUTSIDE RECORDS SUMMARY | 2022-09-25 10:54 | XMS_ITS | Encounter Summary ---
:1990 Author Organization [place] Address [address] [facility] [place] [address] Care Team Providers Name Role Phone Bebeto Faulkner OD Unavailable Dana Powell DPmIan Unavailable [phone] Julian Santana MD Primary Care Provider Encounter Details Date Type Department Care Team Description 05/15/2022 Travel Social History Tobacco Use Types Packs/Day Years [...] on filedocumented in this encounter Care Teams Motor Vehicle Licence Examiner Relationship Specialty Start Date End Date Bebeto Faulkner, OD PCP - Ophthalmology 10/21/07 Dana Powell DPM PCP - Podiatry 02/16/08 [facility] [address] [place], [place] [phone] Julian Santana MD PCP - General Family Practice 09/26/12 [facility] [address] [place], [place] [address] documented as of this encounter
--- OUTSIDE RECORDS SUMMARY | 2022-09-25 10:54 | XMS_ITS | Encounter Summary ---
:1990 Author Organization [place] Address [address] [place] [address] Care Team Providers Name Role Phone Bebeto Faulkner Iman OD Unavailable Dana Powell DPM Unavailable [phone] Julian Santana MD Primary Care Provider Reason for Visit Reason Onset Date Comments MH/CD Inpatient 05/15/2022 Encounter Details Date Type Department Care Team Description 05/15/[address] [facility] Generic, Behavioral MH/ CD Inpatient Behavioral Health In reji Gonzalez MD [address] [place] [phone] Social History Tobacco Use Types Packs/Day [...] this encounter Miscellaneous Notes Telephone Encounter - Josiah Maier - 05/15/2022 8:38 PM CDT S: Pt is a 31 yrs old male in the [facility] unit for SI w/ a plan, reports by [place] at 8:21pm. A: Pt was sent in from his treatment facility with concerns of suicidal ideation with a plan. Pt reports that he was in snf last month and attempted suicide. He was cut down by staff. He did not seek medical tx afterwards. Pt is still endorsing active SI w/ a plan to hang himself. Pt reports a lot ofstressors and is anxious. Pt is currently on probation; he has a long hx of substance abuse. He has only 1 inpt admission as a teen so he has not been stabilized or thoroughly evaluated. No outpt providers established in community. Pt has guardianship paperwork. Pt reports he is on current probation for non violent offenses. Denies chronic medical illness. He ambulates independently and is medically cleared. COVID: negative UTOX: needs to be collected VITALS: stable A: Mom is legal guardian. She consents to inpt. Pt is very calm, cooperative and nice. R: Patient cleared and ready for behavioral bed placement: Yes Pt is placed on worklist pending available bed. documented in this encounter Plan of Treatment Not on filedocumented as of this encounter Visit Diagnoses Not on filedocumented in this encounter Care Teams Silk Presser Relationship Specialty Start Date End Date Bebeto Faulkner OD PCP - Ophthalmology 10/21/07 Dana Powell DPM PCP - Podiatry 02/16/08 [facility] [place] [address] [place] [address] Julian Santana MD PCP - General Family Practice 09/26/12 [facility] [place] [address] [place] [address] documented as of this encounter
--- OUTSIDE RECORDS SUMMARY | 2022-09-25 10:54 | XMS_ITS | Encounter Summary ---
:1990 Author Organization [place] Address [address] [facility] [place] [address] Care Team Providers Name Role Phone Ruperto Rey PhD Unavailable Unavailable Bebeto Faulkner OD Unavailable Dana Powell DPM Unavailable [phone] Julian Santana MD Primary Care Provider Reason for Visit Reason Comments Drug Screen pre employment for [employer] Encounter Details Date Type Department Care Team Description 07/10/[address] [facility] Health Nurse, Frw Occ Health examination of System in [place] Med defined subpopulation Occupational Medicin e [address] (Primary Dx) [address] [employer] [place], [place] [address] [address] [place], [place] [phone] [address] Social History Tobacco Use Types Packs/Day Years Used Date Smoking Tobacco: Every Day Cigarettes 1 7 Smokeless Tobacco: Current Chew Comments: declines quit lne 12 Alcohol Use Standard Drinks/Week Comments Yes 0 (1 standard drink = 0.6 oz pure about 6 bees once or twice a week alcohol) Sex Assigned at Date Recorded Not on file documented as of this encounter Nursing Notes 07/10/2013 2:00 PM CDT >> ARSH DAVILA Mon Jul 10, 2013 2:24 PM Pre employment UDS for [employer]. Uneventful collection. documented in this encounter Plan of Treatment Not on filedocumented as of this encounter Visit Diagnoses Diagnosis Health examination of defined subpopulat ion - Primary documented in this encounter Care Teams Mixing Place Supervisor Relationship Specialty Start Date End Date Ruperto Rey, PhD PCP - Mental 12/21/00 05/14/22 XXX NO INFO FOUND XXX Health/Behavioral Medicine Bebeto Faulkner, OD PCP - Ophthalmology 10/21/07 Dana Powell, PCP - Podiatry 02/16/08 DPM [facility] [place] [address] [place] [address] Julian Santana MD PCP - General Family Practice 09/26/12 [facility] [place] [address] [place] [address] documented as of this encounter
--- OUTSIDE RECORDS SUMMARY | 2022-09-25 10:54 | XMS_ITS | Encounter Summary ---
:1990 Author Organization [place] Address [address] [place] [address] Care Team Providers Name Role Phone Mariely Osuna MD Primary Care Provider Ruperto Rey PhD Unavailable Unavailable Bebeto Faulkner OD Unavailable Dana Powell DPM Unavailable [phone] Encounter Details Date Type Department Care Team Description 04/24/2012 Results Only [facility] Adelfo Gandhi MD in [facility] [address] [place] [address] [place] [address] [place] [address] [phone] (Wo rk) Social History Tobacco Use Types [...] Procedure Name Priority Date/Time Associated Comments Diagnosis COMPREHENSIVE STAT 04/24/2012 10:50 Results fo r this METABOLIC PANEL AM CDT procedure ar e in the results section. documented in this encounter Results (ABNORMAL) Comprehensive metabolic panel (04/24/2012 10:50 AM CDT) Analysis Performed At Patho logist Time Signature Sodium 142 133 - 144 [place] [facility] mmol/L [facility] Potassium 4.2 3.4 - 5.3 [facility] mmol/L [facility] Chloride 107 98 - 110 [facility] mmol/L [facility] Carbon Dioxide 28 20 - 32 [facility] mmol/L [facility] Anion Gap 6 6 - 17 [facility] mmol/L [facility] Glucose 92 60 - 99 [facility] mg/dL [facility] Urea Nitrogen 14 5 - 24 [facility] mg/dL [facility] Creatinine 0.82 0.50 - [facility] 1.00 mg/dL [facility] GFR Estimate >90 >60 [facility] mL/min/1.7 [facility] m2 GFR Estimate If >90 >60 [facility] Black mL/min/1.7 [facility] m2 Calcium 9.1 8.7 - 10.8 [facility] mg/dL [facility] Bilirubin Total 0.7 0.2 - 1.3 [facility] mg/dL [facility] Albumin 4.3 3.9 - 5.1 [facility] g/dL [facility] Protein Total 6.7 (L) 6.8 - 8.8 [facility] g/dL [facility] Alkaline 89 65 - 260 [facility] Phosphatase U/L [facility] ALT <6 0 - 50 U/L [place] [facility] AST 28 0 - 35 U/L [place] [facility] Specimen Anatomical Collection Method Collection Time Receive d Time (Source) Location / / Volume Laterality 04/24/2012 10:50 04/24/2012 AM CDT 10:51 AM CDT Adelfo Gandhi MD LAB - BLOOD ORDERABLES Performing Organization Address City/State/ZIP Code Phon e Number [facility] [place] [facility] [place], [place] [address] documented in this encounter Visit Diagnoses Not on filedocumented in this encounter Care Teams Video System Repairer Relationship Specialty Start Date End Date Mariely Osuna MD PCP - General 06/26/04 09/25/12 [facility] [place] [address] [place] [address] Rueprto Rey, PhD PCP - Mental Health/Behavioral 12/21/00 XXX NO INFO FOUND XXX Medicine Bebeto Faulkner, OD PCP - Ophthalmology 10/21/07 Dana Powell, PCP - Podiatry 02/16/08 DPM [facility] [place] [address] [place] [address] documented as of this encounter
--- OUTSIDE RECORDS SUMMARY | 2022-09-25 10:54 | XMS_ITS | Encounter Summary ---
:1990 Author Organization [place] Address [address] [place] [address] Care Team Providers Name Role Phone Bebeto Faulkner Iman OD Unavailable Dana Powell DPM Unavailable [phone] Julian Santana MD Primary Care Provider Reason for Visit Reason Onset Date Comments MH/CD Inpatient 05/18/2022 Encounter Details Date Type Department Care Team Description 05/18/2022 Telephone M [facility] Generic, Behavioral MH/ CD Inpatient Behavioral Health In reji Gonzalez MD [address] [place] [id number] Social History Tobacco Use Types Packs/Day [...] this encounter Miscellaneous Notes Telephone Encounter - [place] Luciano R - 05/18/2022 8:40 AM CDT R: Pt currently in [facility], [facility]. Inpatient Bed Call Log 05/18/2022 done at 7:45am Adults: ??? [facility] is posting 0 beds. ??? [facility] is posting 0 beds. ??? [facility] beds. ??? [facility] is posting 0 beds. ??? [facility] is posting 0 beds. ??? [facility] is posting 0 beds. ??? [facility] is posting 0 beds. ??? [facility] is posting 0 beds. 8:41a Pt remains on the waitlist pending bed availability. 11:24a Intake called [facility] Unit Nurse (Jim) to request update on pt's status. Nurse informs pt barely woke up, slept all night, still very depressed and does not want to interact through talking, still low energy. Nurse suggested to pt to complete ADL's but pt was not motivated but can do ADL's. Noaggression, pt was eating. Not agitated but just wants to sleep. Has not done anything but sleep. Not catatonic. 12:04p Intake called [facility] nurse (Kristine) to request if pt can go back to pt's treatment facility when pt is discharged from [facility]. Nurse informed Intake that he can and it is in a psych consult note from 05/15/2022. Intake requests that an updated note be placed in pt's chart. 12:20p Intake calls provider EDEL (Serge) to inform that pt has note in chart from 05/15/2022 stating pt will go back to previous treatment facility. Provider accepts pt onto unit pending discharges. 12:25p Intake to update work list. Intake to update units when pt is able to go to the unit. 1:42p Intake called [id number] sheep clipper who informed that pt's primary problem is pain, that he needs medical. 1:56p Intake called [facility] Nurse (Jim) to inquire about pt's chest pain. Nurse informed there was none noted in his chart and that the pt stated: I feel like a million bucks. 2:00p Intake further inquired with [id number] sheep clipper to confirm there was no mix-up in pt's history.sheep clipper informed that there was no mix-up and that pt is declined because of chest pain. 2:05p Intake to update worklist. 3:10p Intake received notification from provider (Savannah) that pt is discharging tomorrow. 3:57p Intake to update work lists. Telephone Encounter - Cora Bowman - 05/18/2022 2:18 AM CDT R: Urine drug screen needs to be collected??when able ?? No appropriate beds currently available within the system. Bed search update??(metro)??@??02:19:? [facility]: @ cap per website ? [facility]:@ cap per website ? [facility]: @ cap per website ? [facility]: @ cap per website ? [facility]: @ cap per website ? [facility]: @ cap per website ? [facility]: @ cap per website ?? Pt??remains??on work list until appropriate placement is available?? documented in this encounter Plan of Treatment Not on filedocumented as of this encounter Visit Diagnoses Not on filedocumented in this encounter Care Teams Last Turner Relationship Specialty Start Date End Date Bebeto Faulkner OD PCP - Ophthalmology 10/21/07 Dana Powell DPM PCP - Podiatry 02/16/08 [facility] [address] [place] [address] Julian Santana MD PCP - General Family Practice 09/26/12 [facility] [place] [address] [place] [address] documented as of this encounter
--- OUTSIDE RECORDS SUMMARY | 2022-09-25 10:54 | XMS_ITS | Clinical Summary ---
:1990 Author Organization [facility] [place] [address] Care Team Providers Name Role Phone None Primary Care Provider Unavailable Allergies Active Allergy Reactions Severity Noted Date Comments Azithromycin *Unknown - Pt Doesn't Remember Medium 07/18/2011 Doxycycline Nausea And Vomiting 03/11/2012 Medications Medication Sig Dispensed Refills Start Date End Date Status buPROPion (WELLBUTRIN Take 150 mg by 0 05/18/2022 Active XL) 150 mg mouth. Extended-Release tablet traZODone (DESYREL) 100 0 05/19/2022 Active mg tablet hydrOXYzine HCL (ATARAX) Take 25 mg by 0 05/18/2022 Active 25 mg tablet mouth. Active Problems Problem Noted Date Adjustment disorder with depressed mood 07/24/2011 Immunizations Name Administration Dates Next Due DTP 06/26/1993, 04/04/1993, 1992 DTP-HIB 04/28/1994 DTaP 04/29/1998 HIB PRP-T (ActHIB,Hiberix) 06/26/1993, 04/04/1993, 2 Hepatitis B, Unspecified 11/12/1995, 11/12/1995, 06/24/1995, 06/24/1995, 05/21/1995, 05/21/1995 Hib Conjugate, Unspecified 06/26/1993, 04/04/1993, 2 Influenza Virus, Unspecified 12/05/2012, 10/07/2005 Influenza, IIV3 (Age >=3 years) 12/05/2012, 10/07/2005 MMR 04/29/1998, 04/28/1994 Oral Polio Vaccine 04/29/1998, 04/28/1994, 04/04/1993, 1992 Td (Age >=7 Years) 07/17/2005 Td, Preservative Free (age >= 7 07/17/2005 Years) Tdap 11/01/2013, 06/20/2012 Tuberculin Skin Test, Unspecified 06/20/1993 Varicella Vaccine 08/29/1994 Social History Tobacco Use Types Packs/Day Years Used Date Current Every Day Smoker Cigarettes 1.5 5 Smokeless Tobacco: Current User Snuff, Chew Comments: no interest in quitting at thi s time Alcohol Use Standard Drinks/Week Comments No 0 (1 standard drink = 0.6 oz pure alcoho l) has drank only a few times Alcohol Habits Answer Date Recorded How often do you have a drink containing Not asked alcohol? How many drinks containing alcohol do you Not asked have on a typical day when you are drinking? How often do you have six or more drinks on Not asked one occasion? Comment: has drank only a few times 07/18/2011 Sex Assigned at Date Recorded Not on file Obstetrics History Last Filed Vital Signs Vital Sign Reading Time Taken Comments Blood Pressure 115/69 05/25/2022 4:46 PM CDT Pulse 81 05/25/2022 4:46 PM CDT Temperature 36.6 ??C (97.9 ??F) 05/25/2022 4:46 PM CDT Respiratory Rate 18 05/25/2022 4:46 PM CDT Oxygen Saturation 97% 05/25/2022 4:46 PM CDT Inhaled Oxygen Concentration - - Weight 92.5 kg (204 lb) 05/25/2022 4:46 PM CDT Height 180.3 cm (5' 11) 06/20/2012 2:46 PM CDT Body Mass Index - - Plan of Treatment Not on file Results Not on filefrom Last 3 Months Insurance Payer Benefit Plan / Subscriber ID Effective Dates Phone Addre ss Type Group [place]ICAID [place] [id number] 2012-[place] [address] [address] [place] [address] MEDICARE - PB MEDICARE [place] [id number] 2012-[place] ATT N: CLAIMS USE ONLY ONLY t [address] [place] [address] [facility] [id number] 2019-Present [address] [facility] [place] [address] [phone] [place] [id number] John Gavin Workers Comp Self [id number] [place] [id number] John Gavin Personal/Family Self [phone]) [place] [id number] Advance Directives Latest Code Status on File Code Status Date Activated Date Inactivated Comments Full Code 07/18/2011 2:14 AM 07/29/2011 12:22 PM Care Teams Vehicle And Equipment Cleaner Relationship Specialty Start Date End Date None PCP - General 07/18/11 .
--- OUTSIDE RECORDS SUMMARY | 2022-09-25 10:55 | XMS_ITS | Encounter Summary ---
:1990 Author Organization [place] Address [address] [place] [address] Care Team Providers Name Role Phone Mariely Osuna MD Primary Care Provider Ruperto Rey PhD Unavailable Unavailable Bebeto Faulkner OD Unavailable Dana Powell DPM Unavailable [phone] Reason for Visit Reason Comments Sick x 1wk, cough, fever, congest ion Encounter Details Date Type Department Care Team Description 02/19/2009 Office Visit [facility] Cora [place]iday Phary ngitis (Primary Dx); [place] PA-C Sinusitis Acute Pediatrics [facility] [address] [facility] [address] [place] [address] [address] [address] [place], [place] [phone] Social History Tobacco Use Types Packs/Day Years Used Date Smoking Tobacco: Passive Smoke Exposure - Never Smoker Alcohol Use Standard Drinks/Week Comments Not Asked 0 (1 standard drink = 0.6 oz pure alcoho l) Sex Assigned at Date Recorded Not on file documented as of this encounter Last Filed Vital Signs Vital Sign Reading Time Taken Comments Blood Pressure - - Pulse - - Temperature 36.5 ??C (97.7 ??F) 02/19/2009 2:40 PM CDT Respiratory Rate - - Oxygen Saturation - - Inhaled Oxygen Concentration - - Weight 84.8 kg (187 lb) 02/19/2009 2:40 PM CDT Height - - Body Mass Index - - documented in this encounter Progress Notes Cora Holl[place] PA-C - 02/19/2009 3:12 PM CDT SUBJECTIVE: John is a 18 year old male brought in by his mom today for sore throat, congestion, and cough for the past 7-8 days. He developed fever yesterday. OBJECTIVE: Temperature 97.7 ??F (36.5 ??C), temperature source Temporal, weight 187 lb (84.823 kg). John is alert and cooperative. Conjunctivae clear, noninjected. Nares patent, noncongested. Oropharynx pink and moist without lesion. Ear canals clear. TMs translucent with normal light reflex and bony landmarks. Neck supple without lymphadenopathy. Lungs CTA bilaterally. ASSESSMENT: Encounter Diagnoses Code Name Primary? 462Y Pharyngitis Yes ??? 461.9M Sinusitis Acute PLAN: Per orders. Supportive and symptomatic cares discussed and encouraged. documented in this encounter Plan of Treatment Not on filedocumented as of this encounter Procedures Procedure Name Priority Date/Time Associated Diagnosis Comme nts HCL BETA STREP Routine 02/19/2009 3:02 PM Pharyngitis Results for this CONFIRM CDT procedure are i n the results section. HCL STREP GROUP A Routine 02/19/2009 2:44 PM Pharyngitis Resu lts for this AG (RAPID) CDT procedure are i n the results section. documented in this encounter Results BETA STREP CONFIRM (02/19/2009 3:02 PM CDT) Component Value Ref Test Analysis Performed At [facility] Method Time Signature Specimen Throat [place] [facility] Description [facility] Culture Micro No Beta [place] [facility] Streptococcus [facility] isolated Report status FINAL 02/21/2009 [place] Specimen Anatomical Collection Method Collection Time Receive d Time (Source) Location / / Volume Laterality 02/19/2009 3:02 PM 9 3:03 CDT PM CDT Cora Holl[place] PA-C LABORATORY Performing Organization Address City/State/ZIP Code Phon e Number [facility] [place] [facility] [address] STREP GROUP A AG (RAPID) (02/19/2009 2:44 PM CDT) Component Value Ref Test Analysis Performed At [facility] gist Range Method Time Signature Specimen Throat [place] [facility] Description [facility] Rapid Strep A NEGATIVE: No Group A strepto coccal antigen detected by immunoassay, await [place] [facility] Screen culture report. [facility] Report status FINAL 02/19/2009 [place] [facility] Specimen Anatomical Collection Method Collection Time Receive d Time (Source) Location / / Volume Laterality 02/19/2009 2:44 PM 9 2:49 CDT PM CDT Cora Holliday PA-C LABORATORY Performing Organization Address City/State/ZIP Code Phon e Number [facility] [facility] [address] documented in this encounter Visit Diagnoses Diagnosis Pharyngitis - Primary Acute pharyngitis Sinusitis acute Acute sinusitis, unspecified documented in this encounter Care Teams Surfboard Maker Relationship Specialty Start Date End Date Mariely Osuna MD PCP - General 06/26/04 09/25/12 [facility] [place] [address] [place] [address] Ruperto Rey, PhD PCP - Mental Health/Behavioral 12/21/00 XXX NO INFO FOUND XXX Medicine Bebeto Faulkner, OD PCP - Ophthalmology 10/21/07 Dana Powell, PCP - Podiatry 02/16/[address] [facility] [place] [address] [place] [address] documented as of this encounter
--- OUTSIDE RECORDS SUMMARY | 2022-09-25 10:55 | XMS_ITS | Encounter Summary ---
:1990 Author Organization [place] Address [address] [place] [address] Care Team Providers Name Role Phone Mariely sOuna MD Primary Care Provider Ruperto Rey PhD Unavailable Unavailable Encounter Details Date Type Department Care Team Description 04/08/2006 Psyche [facility] Health Margi Wheatley BIPOLAR - MOST RECENT System in [place] MARGI WHEATLEY [facility] EPISODE UNSPECIFIED Psychology [address] [facility] (Primary Dx) [address] [facility] [address] [place] [address] [place] [address] [phone] (Wo rk) Social History Tobacco Use Types Packs/Day Years Used Date Smoking Tobacco: Never Comments: no 2nd hand smoke in the house Alcohol Use Standard Drinks/Week Comments Not Asked 0 (1 standard drink = 0.6 oz pure alcoho l) Sex Assigned at Date Recorded Not on file documented as of this encounter Progress Notes Margi Wheatley - 04/09/2006 10:43 AM CDT CASE NOTE 45-50 minute session. PRESENTING PROBLEM: Royal returns for ongoing treatment for symptoms of bipolar. He indicates that he has had a few less difficulties at school. He continues to not complete work however. CURRENT ISSUES: This session focuses on prosocial skills of taking turns and being able to play a game that has specific rules. Royal in this session with prompts is able to take turns appropriately and follow the general rules. INTERVENTIONS/COMPLIANCE: Royal is motivated to play the Thinking, Feeling and Doing Game. He is motivated by the possibility of winning and also of earning chips. ASSESSMENT / PLAN: Continue to see Royal to promote prosocial skills along with reducing impulsivity. See in one to two weeks. Margi Wheatley, LAND SURVEYING PARTY CHIEF VIKIS/robinsons cc: documented in this encounter Plan of Treatment Not on filedocumented as of this encounter Visit Diagnoses Diagnosis Bipolar I disorder, most recent episode (or current) unspecified - Primary documented in this encounter Care Teams Guest History Clerk Relationship Specialty Start Date End Date Mariely Osuna MD PCP - General 06/26/04 09/25/12 [facility] [address] [facility] [address] [place] [address] Ruperto Rey, PhD PCP - Mental Health/Behavioral 12/21/00 XXX NO INFO FOUND XXX Medicine documented as of this encounter
--- OUTSIDE RECORDS SUMMARY | 2022-09-25 10:55 | XMS_ITS | Encounter Summary ---
:1990 Author Organization [place] Address [address] [place] [address] Care Team Providers Name Role Phone Mariely Osuna MD Primary Care Provider Ruperto Rey PhD Unavailable Unavailable Bebeto Faulkner OD Unavailable aDna Powell DPM Unavailable [phone] Julian Santana MD Primary Care Provider Encounter Details Date Type Department Care Team Description 04/24/2012 [facility] in [place] rgiAdelfo MD [facility] [address] [place] [address] [place] [address] [place] [address] [phone] (Wo rk) Social History Tobacco Use Types [...] on filedocumented in this encounter Care Teams Freight Trucker Relationship Specialty Start Date End Date Mariely Osuna MD PCP - General 06/26/04 09/25/12 [facility] [address] [place] [address] Ruperto Rey, PhD PCP - Mental 12/21/00 05/14/22 XXX NO INFO FOUND XXX Health/Behavioral Medicine Bebeto Faulkner, OD PCP - Ophthalmology 10/21/07 Dana Powell, PCP - Podiatry 02/16/08 DPM [facility] [place] [address] [place] [address] Julian Santana MD PCP - General Family Practice 09/26/12 [facility] [place] [address] [place] [address] documented as of this encounter
--- OUTSIDE RECORDS SUMMARY | 2022-09-25 10:55 | XMS_ITS | Encounter Summary ---
:1990 Author Organization [facility] Address [address] [place] [address] Care Team Providers Name Role Phone Mariely Osuna MD Primary Care Provider Ruperto Rey PhD Unavailable Unavailable Bebeto Faulkner OD Unavailable Dana Powell DPM Unavailable [phone] Reason for Visit Reason Comments Throat Problem swollen glands in throat Encounter Details Date Type Department Care Team Description 08/20/2008 Office Visit [facility] Mariely Osuna, Stre ptococcal Sore Throat; System in [place] Acute Pharyngitis Pediatrics [facility] [address] [facility] [place] [address] [address] [place] [phone] [address] Social History Tobacco Use Types Packs/Day Years Used Date Smoking Tobacco: Never Alcohol Use Standard Drinks/Week Comments Not Asked 0 (1 standard drink = 0.6 oz pure alcoho l) Sex Assigned at Date Recorded Not on file documented as of this encounter Last Filed Vital Signs Vital Sign Reading Time Taken Comments Blood Pressure - - Pulse - - Temperature 36.1 ??C (97 ??F) 08/20/2008 10:50 AM CDT Respiratory Rate - - Oxygen Saturation - - Inhaled Oxygen Concentration - - Weight 77.6 kg (171 lb) 08/20/2008 10:50 AM CDT Height 174.6 cm (5' 8.75) 08/20/2008 10:50 AM CDT Body Mass Index 25.44 08/20/2008 10:50 AM CDT Body Mass Index Percentile 90.30 % 08/20/2008 10:50 AM C DT Growth Chart: [facility] (Boys, 2-20 Years) documented in this encounter Progress Notes Mariely Osuna MD - 08/20/2008 11:14 AM CDT SUBJECTIVE: Sudden onset of sore throat for 10 days. History of fever: No Complains of swollen glands: Yes Complains of swollen tonsils: Yes Complains of headache: Yes Has John been exposed to household member, daycare or very close contact with someone with strep throat in the past 5 days: YES - mother with NON GRP A strep on throat cuulture. TRIAGE TEXT: If the patient answers yes to any of the following questions, advise on home remedies or see MD if indicated/desired. Rhinorrhea: No Cough: Yes Hoarseness: No Diarrhea: No COMPLICATING FACTORS: Serious symptoms (trouble breathing, drooling, inability to swallow liquids)? No Severe abdominal pain and/or severe vomitting? No Ear Pain:? No History of rheumatic fever?: No Pt. on chemotherapy/or immunosuppressed? No Insulin Dependent Diabetes? No Patient on antibiotics? No Sore throat > 5 days? Yes Reoccurrence of symptoms within 7 days of being treated for strep? No Multiple drug allergies: Zithromax Age less than 5 years? No Have there been more than 2 Positive Strep test in the past 6 months without a provider visit? No ? No Patient referred to provider - Yes Katheryn Hobbs Triage notes reviewed and verified. OBJECTIVE: Temp (Src) 97 ??F (36.1 ??C) (Tympanic) Ht 5' 8.75 (1.746 m) Wt 171 lb (77.565 kg) General: Alert, oriented, well hydrated. Skin turgor normal. Eyes: Conjunctivae normal. No discharge. Ears: External ears and canals are normal. TM's translucent with normal luisa landmarks. No erythemaor purulence. THROAT: NORMAL - no erythema, no adenopathy, no exudates. Neck: No significant cervical adenopathy. Chest: Easy respiration. Lungs clear to auscultation. Good air movement bilaterally without rales, wheezes, or rhonchi. Abdomen: soft without tenderness, guarding, mass or organomegaly. Bowel sounds are normal. Skin: No noted rash Lab: SEE ORDERED STREP TEST Assessment: ACUTE PHARYNGITIS, likely viral Plan: 1. SEE ORDERS 2. Symptomatic treatment. See patient instructions 3. Call for overnight throat culture results (if applicable). 4. Return if not improving within 48 to 72 hours or other concerns. documented in this encounter Plan of Treatment Not on filedocumented as of this encounter Procedures Procedure Name Priority Date/Time Associated Diagnosis Comme nts HCL BETA STREP Routine 08/20/2008 11:36 Streptococcal Sore Res ults for this CONFIRM AM CDT Throat procedure are in Acute Pharyngitis the result s section. HCL STREP GROUP A Routine 08/20/2008 11:14 Acute Pharyng itis Results for this AG (RAPID) AM CDT Streptococcal Sore procedure are in Throat the results section. documented in this encounter Results BETA STREP CONFIRM (08/20/2008 11:36 AM CDT) Component Value Ref Test Analysis Performed At [facility] Radiation Watch Range Method Time Signature Specimen Throat [facility] Description [facility] Culture Micro No Beta [facility] Streptococcus [facility] isolated Report status FINAL 08/22/2008 [facility] Specimen Anatomical Collection Method Collection Time Receive d Time (Source) Location / / Volume Laterality 08/20/2008 11:36 08/20/2008 AM CDT 11:37 AM CDT Mariely Osuna MD LABORATORY Performing Organization Address City/[facility]/ZIP Code Phon e Number [facility] [address] RAPID STREP (08/20/2008 11:14 AM CDT) Component Value Ref Test Analysis [facility] Range Method Time Signature Specimen Throat [facility] Description [facility] Rapid Strep A NEGATIVE: No Group A strepto coccal antigen detected by immunoassay, await [facility] Screen culture report. [facility] Report status FINAL 08/20/2008 [facility] Specimen Anatomical Collection Method Collection Time Receive d Time (Source) Location / / Volume Laterality 08/20/2008 11:14 08/20/2008 AM CDT 11:19 AM CDT Mariely Osuna MD LABORATORY Performing Organization Address City/State/ZIP Code Phon e Number [facility] [place] [facility] [address] documented in this encounter Visit Diagnoses Diagnosis Streptococcal sore throat Acute pharyngitis documented in this encounter Care Teams Lubrication Equipment Servicer Relationship Specialty Start Date End Date Mariely Osuna MD PCP - General 06/26/04 09/25/12 [facility] [place] [address] [place] [address] Ruperto Rey, PhD PCP - Mental Health/Behavioral 12/21/00 XXX NO INFO FOUND XXX Medicine Bebeto Faulkner, OD PCP - Ophthalmology 10/21/07 Dana Powell, PCP - Podiatry 02/16/08 DPM [facility] [place] [address] [place] [address] documented as of this encounter
--- OUTSIDE RECORDS SUMMARY | 2022-09-25 10:55 | XMS_ITS | Encounter Summary ---
:1990 Author Organization [facility] Address [address] [place] [address] Care Team Providers Name Role Phone Mariely Osuna MD Primary Care Provider Ruperto Rey PhD Unavailable Unavailable Reason for Visit Reason Onset Date Comments Medication Request 11/18/2006 Penicillin Encounter Details Date Type Department Care Team Description 11/18/2006 Telephone [facility] Me dication Request in [facility] (Penicillin) [address] [place] [address] Social History Tobacco Use Types Packs/Day Years Used Date Smoking Tobacco: Never Comments: no 2nd hand smoke in the house Alcohol Use Standard Drinks/Week Comments Not Asked 0 (1 standard drink = 0.6 oz pure alcoho l) Sex Assigned at Date Recorded Not on file documented as of this encounter Miscellaneous Notes Telephone Encounter - Carly Hart - 11/19/2006 8:55 AM CST Left message on answering machine.Told to call back if coming. NESS SERVICES OFFICER Telephone Encounter - Mariely Osuna MD - 11/18/2006 5:27 PM CST Needs testing. Can come in for strep test only. NESS SERVICES OFFICER Telephone Encounter - JOSEFINA RODRIGUEZ - 11/18/2006 3:58 PM CST Requesting antibiotic for him since brother was dx with strep throat yesterday. He is c/o sore throat, has fever today. NESS SERVICES OFFICER documented in this encounter Plan of Treatment Not on filedocumented as of this encounter Visit Diagnoses Not on filedocumented in this encounter Care Teams Aging Department Supervisor Relationship Specialty Start Date End Date Mariely Osuna MD PCP - General 06/26/04 09/25/[address] [place] [address] Ruperto Rey, PhD PCP - Mental Health/Behavioral 12/21/00 XXX NO INFO FOUND XXX Medicine documented as of this encounter
--- OUTSIDE RECORDS SUMMARY | 2022-09-25 10:55 | XMS_ITS | Encounter Summary ---
:1990 Author Organization [facility] Address [address] [facility] [place] [address] Care Team Providers Name Role Phone Mariely Osuna MD Primary Care Provider Ruperto Rey PhD Unavailable Unavailable Bebeto Faulkner OD Unavailable Dana Powell DPM Unavailable [phone] Julian Santana MD Primary Care Provider Reason for Visit Reason Onset Date Comments Nurse Advice Line 03/11/2012 Encounter Details Date Type Department Care Team Description 03/11/2012 Telephone [facility] None Nurse Ad vice Line Social History Tobacco Use Types Packs/Day Years Used Date Smoking Tobacco: Passive Smoke Exposure - Never Smoker Smokeless Tobacco: Never Alcohol Use Standard Drinks/Week Comments Not Asked 0 (1 standard drink = 0.6 oz pure alcoho l) Sex Assigned at Date Recorded Not on file documented as of this encounter Miscellaneous Notes Telephone Encounter - Luis M Rivera - 04/03/2013 5:23 PM CDT [facility] Triage Call Report Patient Name: John Gavin Call Date & Time: 03/11/2012 5:54:37PM Patient PCP Name: Patient Address: [address] [place] [id number] Patient Date of : 1990 Age: 22 yr. Patient Gender: Male Topography Technician Name: Marina Johansen Presenting Problem: Mother, Dayanara Gavin, calling. He was not with her and I conferenced him in.He gave me permission to have her in on the conversation and I found the guardianship paper in his chart. Was put on Doxycycline and after taking dose last noc and this a.m. vomiting and dizziness and diarrhea and tiredness 20 min later. No sx at present. Being transferred from peds to adult care at the clinic. Sent web page to Dr Kinney to call Dayanara hudson, at [phone]. Triage Note: Guideline Title: Allergic Reaction; Known / Suspected Recommended Disposition: Override Disposition: Call Provider within 24 Hours Question Response Question Note Severe breathing problems No New or worsening signs and symptoms that may indicate No shock Signs/symptoms of anaphylaxis No History of severe reaction after previous similar exposure No Sudden onset cramping, abdominal pain with nausea, No vomiting or diarrhea and suspected exposure to known allergen Breathing problems No First occurrence of mild allergic reaction (rash; hives; Yes itching; nasal congestion; watery, red eyes) that occurs within minutes to several hours after exposure to an allergen. Physician Contacted: Physician Instructions: No Care Advice: - Call provider if symptoms worsen or new symptoms develop. - Speak with provider before next dose of medication is due. MEDICAL HISTORY Conditions: Condition Note: Medication: Medication Note: Allergy: Reaction: Procedure: Procedure Note: documented in this encounter Plan of Treatment Not on filedocumented as of this encounter Visit Diagnoses Not on filedocumented in this encounter Care Teams Cause Analyst Relationship Specialty Start Date End Date Mariely Osuna MD PCP - General 06/26/04 09/25/12 [facility] [address] [place] [address] Ruperto Rey, PhD PCP - Mental 12/21/00 05/14/22 XXX NO INFO FOUND XXX Health/Behavioral Medicine Bebeto Faulkner, OD PCP - Ophthalmology 10/21/07 Dana Powell, PCP - Podiatry 02/16/08 DPM [facility] [address] [place] [address] Julian Santana MD PCP - General Family Practice 09/26/12 [facility] Marty [place] [address] [facility] [address] [place] [address] documented as of this encounter
--- OUTSIDE RECORDS SUMMARY | 2022-09-25 10:55 | XMS_ITS | Encounter Summary ---
:1990 Author Organization [facility] Address [address] [place] [address] Care Team Providers Name Role Phone Mariely Osuna MD Primary Care Provider Ruperto Rey PhD Unavailable Unavailable Bebeto Faulkner OD Unavailable Dana Powell DPM Unavailable [phone] Julian Santana MD Primary Care Provider Encounter Details Date Type Department Care Team Description 09/16/2008 [facility] in Mariely Schwartz MD [facility] [address] [place] [address] [address] [place], [place] [address] (Wo rk) Social History [...] on filedocumented in this encounter Care Teams Bankruptcy Legal Assistant Relationship Specialty Start Date End Date Mariely Osuna MD PCP - General 06/26/04 09/25/12 [facility] [address] [place] [address] Ruperto Rey, PhD PCP - Mental 12/21/00 05/14/22 XXX NO INFO FOUND XXX Health/Behavioral Medicine Bebeto Faulkner, OD PCP - Ophthalmology 10/21/07 Dana Powell, PCP - Podiatry 02/16/08 DPM [facility] Marty Novak [address] [place], [place] [id number] Julian Santana MD PCP - General Family Practice 09/26/12 [facility] Marty Novak [address] [place] [address] documented as of this encounter
--- OUTSIDE RECORDS SUMMARY | 2022-09-25 10:55 | XMS_ITS | Encounter Summary ---
:1990 Author Organization [facility] Address [address] [place] [address] Care Team Providers Name Role Phone Mariely Osuna MD Primary Care Provider Ruperto Rey PhD Unavailable Unavailable Bebeto Faulkner OD Unavailable Dana Powell DPM Unavailable [phone] Reason for Visit Reason Comments Throat Problem x 3 days Sinus Problem x 3 weeks, sinus pressure in face, headaches, nasal congestion, green nasal drainage Mass in groin area, needs to be c hecked out Derm Problem acne Encounter Details Date Type Department Care Team Description 02/14/2010 Office Visit [facility] Mariely Osuna Sinu sitis Acute; System in [place] Wheezing; Pediatrics [facility] [place] Acne Vulgaris [address] [place] [address] [address] [place], [place] [address] (Wo rk) Social History [...] Sign Reading Time Taken Comments Blood Pressure 104/68 02/14/2010 2:51 PM CDT Pulse - - Temperature 36.8 ??C (98.3 ??F) 02/14/2010 2:51 PM CDT Respiratory Rate - - Oxygen Saturation - - Inhaled Oxygen Concentration - - Weight 85.8 kg (189 lb 1.6 oz) 02/14/2010 2:51 PM CDT Height 175.3 cm (5' 9) 02/14/2010 2:51 PM CDT Body Mass Index 27.93 02/14/2010 2:51 PM CDT Body Mass Index Percentile 93.92 % 02/14/2010 2:51 PM CD T Growth Chart: [facility] (Boys, 2-20 Years) documented in this encounter Progress Notes Mariely Osuna MD - 02/19/2010 4:02 PM CDT CLINIC ENCOUNTER John Gavin is in with his mom with a couple of concerns. First, he has had at least three weeks of rhinorrhea and congestion. He has developed pressure in his face, has headaches, green nasal drainage and complained of a sore throat over the past several days. He has not had any significant fever. He also would like prescription treatment for acne. He has used [id number] benzoyl peroxide in the past without effect. There is a history of severe scarring acne in the family. He also had a lump in his scrotum noted in November of 2007. He had an ultrasound, which showed a separate cyst from his testicle, just thin-walled and that report is reviewed. He has noted that the cyst is still present and is unsure whether it has changed or not. OBJECTIVE: On physical exam, he is alert, comfortable. His conjunctivae are clear. Both TMs are translucent. Nose is very congested. Oropharynx: No tonsillar erythema or exudate. Moist mucous membranes. Neck is supple. No significant adenopathy. Chest: Good air entry, clear to auscultation. No wheezes, rhonchi or rales. Abdomen is soft, no hepatosplenomegaly. He has acne on face and upper back with comedones and a few erythematous papules. No cysts, nodules or significant scarring. Scrotal exam is Robert stage 5. He has a freely mobile cystic nodule of the previously described size, 1.5 centimeters approximately above the right testicle. No other testicular masses are appreciated. ASSESSMENT: 1. Clinical sinusitis. 2. 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 3. Acne. 4. History of shortness of breath with exercise. He has stopped smoking. PLAN: 1. Augmentin is prescribed. 2. Discussed ultrasound report and exam. Offered referral to urology if concerns persist. 3. Acne and appropriate use of Retin A is discussed. Written prescription provided. Albuterol inhaler to use as needed. Mariely Osuna M.D. EMELY/tenzin cc: Mariely Osuna MD - 02/14/2010 3:37 PM CDT Insert dictation. documented in this encounter Plan of Treatment Not on filedocumented as of this encounter Visit Diagnoses Diagnosis Sinusitis acute Acute sinusitis, unspecified Wheezing Acne vulgaris Other acne documented in this encounter Care Teams Automotive Mechanic Relationship Specialty Start Date End Date Mariely Osuna MD PCP - General 06/26/04 09/25/12 [facility] [place] [address] [place] [address] Ruperto Rey, PhD PCP - Mental Health/Behavioral 12/21/00 XXX NO INFO FOUND XXX Medicine Bebeto Faulkner, OD PCP - Ophthalmology 10/21/07 Dana Powell, PCP - Podiatry 02/16/08 DPM [facility] [place] [address] [place] [address] documented as of this encounter
--- OUTSIDE RECORDS SUMMARY | 2022-09-25 10:55 | XMS_ITS | Encounter Summary ---
:1990 Author Organization [facility] Address [address] [place] [address] Care Team Providers Name Role Phone Mariely Osuna MD Primary Care Provider Ruperto Rey PhD Unavailable Unavailable Bebeto Faulkner OD Unavailable Dana Powell DPM Unavailable [phone] Encounter Details Date Type Department Care Team Description 04/24/2012 Results Only [facility] Adelfo Gandhi MD in [facility] [address] [place] [address] [place] [address] [place] [address] [phone] (Wo rk) Social History Tobacco Use Types [...] Name Priority Date/Time Associated Diagnosis Comme nts AMYLASE STAT 04/24/2012 10:50 AM Results for this CDT procedure are i n the results section . documented in this encounter Results Amylase (04/24/2012 10:50 AM CDT) P athologist Signature Amylase 46 30 - 110 [facility] Specimen Anatomical Collection Method Collection Time Receive d Time (Source) Location / / Volume Laterality 04/24/2012 10:50 04/24/2012 AM CDT 10:51 AM CDT Adelfo Gandhi MD LAB - BLOOD ORDERABLES Performing Organization Address City/State/ZIP Code Phon e Number [facility] [address] documented in this encounter Visit Diagnoses Not on filedocumented in this encounter Care Teams Investment Director Relationship Specialty Start Date End Date Mariely Osuna MD PCP - General 06/26/04 09/25/12 [facility] [place] [address] [place] [address] Ruperto Rey, PhD PCP - Mental Health/Behavioral 12/21/00 XXX NO INFO FOUND XXX Medicine Bebeto Faulkner, OD PCP - Ophthalmology 10/21/07 Dana Powell, PCP - Podiatry 02/16/08 DPM [facility] [place] [address] [place] [address] documented as of this encounter
--- OUTSIDE RECORDS SUMMARY | 2022-09-25 10:55 | XMS_ITS | Encounter Summary ---
:1990 Author Organization [facility] Address [address] [place] [address] Care Team Providers Name Role Phone Mariely Osuna MD Primary Care Provider Ruperto Rey PhD Unavailable Unavailable Reason for Visit Reason Comments Derm Problem warts on both hands Encounter Details Date Type Department Care Team Description 03/28/2007 Office Visit [facility] Mariely Osuna VIRA L WARTS NOS System in [place] Novak MD (Primary Dx) Pediatrics [facility] [address] [place] [address] [address] [address] [place], [place] [phone] [id number] Social History Tobacco Use Types Packs/Day Years [...] Pressure - - Pulse - - Temperature - - Respiratory Rate - - Oxygen Saturation - - Inhaled Oxygen Concentration - - Weight 65.3 kg (144 lb) 03/28/2007 8:30 AM CDT Height - - Body Mass Index - - documented in this encounter Progress Notes Mariely Osuna MD - 03/28/2007 8:47 AM CDT Subjective: The patient is here for follow up of warts. Objective: Exam discloses wart(s) on the left hand decrease/absent in size. 1 small new wart on dorsum of IP joint of thumb right hand: no appreciable change in large thick wart on dorsum of 3rd digit, satellite 4 to 5 smaller warts decreased in size. Single wart dorsum mcp of 5th digit decreased in size. Assessment: Warts, improved, not yet resolved. Plan: Repeat Liquid Nitrogen was applied; continue to see at intervals until resolved. Consider referral if no progress in largest wart at next visit. documented in this encounter Plan of Treatment Not on filedocumented as of this encounter Procedures Procedure Name Priority Date/Time Associated Diagnosis Comme nts HC DESTRUCT BENIGN Routine 03/28/2007 8:47 AM CDT Viral Warts Nos LESION, UP TO 14 documented in this encounter Visit Diagnoses Diagnosis Viral warts, unspecified - Primary documented in this encounter Care Teams Design Architect Relationship Specialty Start Date End Date Mariely Osnua MD PCP - General 06/26/04 09/25/[address] [place] [address] Ruperto Rey, PhD PCP - Mental Health/Behavioral 12/21/00 XXX NO INFO FOUND XXX Medicine documented as of this encounter
--- OUTSIDE RECORDS SUMMARY | 2022-09-25 10:55 | XMS_ITS | Encounter Summary ---
:1990 Author Organization [place] Address [address] [facility] [place] [address] Care Team Providers Name Role Phone Mariely Osuna MD Primary Care Provider Ruperto Rey PhD Unavailable Unavailable Bebeto Faulkner OD Unavailable Dana Powell DPM Unavailable [phone] Reason for Visit Reason Comments Minor Procedure laser warts both feet Encounter Details Date Type Department Care Team Description 02/22/2008 Office Visit [facility] Dana Powell OT HER SPECIFIED VIRAL System in [place] C, DPM WARTS (Primary Dx) Podiatry [facility] [address] [place], [place] [phone] [place] [address] (Wo rk) Social History Tobacco Use Types Packs/Day Years Used Date Smoking Tobacco: Never Alcohol Use Standard Drinks/Week Comments Not Asked 0 (1 standard drink = 0.6 oz pure alcoho l) Sex Assigned at Date Recorded Not on file documented as of this encounter Progress Notes Dana Powell DPM - 02/23/2008 8:31 AM CDT SUBJECTIVE: John is a 17 year old male presenting for laser of warts. Family History Problem Relation ??? Neurological Mother migraine headaches ??? Neurological Paternal Grandmother migraine headaches ??? Depression Father Committed suicide ??? Psychiatry Father Mental illness ??? Alcohol/Drug Paternal family with history of depression,alcohol, drugs & social abuse ??? Respiratory Paternal Grandfather Emphysema ??? Hypertension Paternal Grandmother ??? Heart Paternal Grandmother Heart [place], [place] ??? Respiratory Father Asthma ??? Respiratory Mother Asthma ??? Respiratory Brother Asthma ??? Eye Maternal Uncle GLAUCOMA ??? Eye Maternal Grandmother CATARACTS OBJECTIVE: There were no vitals taken for this visit. Patient is alert and orientated to time, placeand person. Dermatological: Lower extremity shows positive for warts. Location of lesion(s) sole of right and left foot. Number of lesion(s) <15. ASSESSMENT: Encounter Diagnoses Code Name Primary? Qualifier ??? 078.19 OTHER SPECIFIED VIRAL WARTS Yes PLAN: Discussed with patient clinical findings and symptoms. He has findings for cluster warts rightfoot. Pulse -dye laser of 585nm with a spot of 7mm, power of 9 Misael/cm2 and mode of 1 Hz was used for a total of 16 pulses. John tolerated procedure well. Reviewed continued care of lesion. Assessment for John will be ongoing with changes in treatment as indicated. Benefits/risks/alternatives to treatment have been reviewed and John has been instructed to contact this office if he hasany questions or concerns. John will follow with podiatry as needed if he has continued problems or discomfort. This plan of care has been discussed with John and he is in agreement. John voiced understanding to information discussed this visit. documented in this encounter Plan of Treatment Not on filedocumented as of this encounter Procedures Procedure Name Priority Date/Time Associated Diagnosis Comme nts C RW LASER DEST. Routine 02/23/2008 8:30 AM CDT Other Specifie d Viral PREMALIG LESION 1ST Warts documented in this encounter Visit Diagnoses Diagnosis Other specified viral warts - Primary documented in this encounter Care Teams Skewer Up Relationship Specialty Start Date End Date Mariely Osuna MD PCP - General 06/26/04 09/25/12 [facility] [address] [facility] [address] [place] [address] Ruperto Rey, PhD PCP - Mental Health/Behavioral 12/21/00 XXX NO INFO FOUND XXX Medicine Bebeto Faulkner, OD PCP - Ophthalmology 10/21/07 Dana Powell, PCP - Podiatry 02/16/08 DPM [facility] [place] [address] [facility] [address] [place] [address] documented as of this encounter
--- OUTSIDE RECORDS SUMMARY | 2022-09-25 10:55 | XMS_ITS | Encounter Summary ---
:1990 Author Organization [place] Address [address] [place] [address] Care Team Providers Name Role Phone Mariely Osuna MD Primary Care Provider Ruperto Rey PhD Unavailable Unavailable Bebeto Faulkner OD Unavailable Reason for Visit Reason Comments Radiology Visit TESTICULAR SONO Encounter Details Date Type Department Care Team Description 12/21/2007 Allied Health[facility]Nurse [facility] System in [place] (TESTICUL AR SONO) Imaging [address] [place] [phone] Social History Tobacco Use Types Packs/Day Years Used Date Smoking Tobacco: Never Alcohol Use Standard Drinks/Week Comments Not Asked 0 (1 standard drink = 0.6 oz pure alcoho l) Sex Assigned at Date Recorded Not on file documented as of this encounter Plan of Treatment Not on filedocumented as of this encounter Visit Diagnoses Diagnosis Other specified disorder of male genital organs(608.89) Other specified disorder of male genital organs documented in this encounter Care Teams Hatchery Man Relationship Specialty Start Date End Date Mariely Osuna MD PCP - General 06/26/04 09/25/12 [facility] [address] [place], [place] [phone] Ruperto Rey, PhD PCP - Mental Health/Behavioral 12/21/00 XXX NO INFO FOUND XXX Medicine Bebeto Faulkner, OD PCP - Ophthalmology 10/21/07 documented as of this encounter
--- OUTSIDE RECORDS SUMMARY | 2022-09-25 10:55 | XMS_ITS | Encounter Summary ---
:1990 Author Organization [place] Address [address] [place] [address] Care Team Providers Name Role Phone Mariely Osuna MD Primary Care Provider Ruperto Rey PhD Unavailable Unavailable Reason for Visit Reason Comments Derm Problem warts on both hands Encounter Details Date Type Department Care Team Description 04/22/2007 Office Visit [facility] Mariely Osuna VIRA L WARTS NOS System in [place] Novak MD (Primary Dx) Pediatrics [facility] [address] [place] [address] [place] [address] [address] [address] [place], [place] [phone] Social History Tobacco Use Types Packs/Day Years [...] - Inhaled Oxygen Concentration - - Weight 66.7 kg (147 lb) 04/22/2007 8:50 AM CDT Height 168.9 cm (5' 6.5) 04/22/2007 8:50 AM CDT Body Mass Index 23.37 04/22/2007 8:50 AM CDT Body Mass Index Percentile 86.18 % 04/22/2007 8:50 AM CD T Growth Chart: CDC (Boys, 2-20 Years) documented in this encounter Progress Notes Mariely Osuna MD - 04/22/2007 9:22 AM CDT Subjective: The patient is here for follow up of warts. Objective: Exam discloses wart(s) on the dorsum of both fingers decreased in size with some now absent. Largestwart with definite decrease in size proximally still with thick annual aspect distally. Assessment: Warts, improved, not yet resolved. Plan: Repeat Liquid Nitrogen was applied; continue to see at intervals until resolved. documented in this encounter Plan of Treatment Not on filedocumented as of this encounter Procedures Procedure Name Priority Date/Time Associated Diagnosis Comme nts HC DESTRUCT BENIGN Routine 04/22/2007 9:22 AM CDT Viral Warts Nos LESION, UP TO 14 documented in this encounter Visit Diagnoses Diagnosis Viral warts, unspecified - Primary documented in this encounter Care Teams Sign Painter Relationship Specialty Start Date End Date Mariely Osuna MD PCP - General 06/26/04 09/25/[address] [place] [address] Ruperto Rey, PhD PCP - Mental Health/Behavioral 12/21/00 XXX NO INFO FOUND XXX Medicine documented as of this encounter
--- OUTSIDE RECORDS SUMMARY | 2022-09-25 10:55 | XMS_ITS | Encounter Summary ---
:1990 Author Organization [place] Address [address] [place] [address] Care Team Providers Name Role Phone Mariely Osuna MD Primary Care Provider Ruperto Rey PhD Unavailable Unavailable Reason for Visit Reason Onset Date Comments Refill Request 06/21/2006 imitrex Encounter Details Date Type Department Care Team Description 06/21/2006 Refill [facility] Mariely Osuna Refi ll Request (imitrex) System in [place] [facility] [address] [facility] [address] [place] [address] [address] [place], [place] [address] (Wo rk) Social History Tobacco Use Types Packs/Day Years Used Date Smoking Tobacco: Never Comments: no 2nd hand smoke in the house Alcohol Use Standard Drinks/Week Comments Not Asked 0 (1 standard drink = 0.6 oz pure alcoho l) Sex Assigned at Date Recorded Not on file documented as of this encounter Miscellaneous Notes Telephone Encounter - Olimpia Spence - 06/21/2006 8:51 AM CDT Faxed request from pharmacy,will be directly faxed back if approved. Will you fill in pcp's absence? documented in this encounter Plan of Treatment Not on filedocumented as of this encounter Visit Diagnoses Not on filedocumented in this encounter Care Teams Enrollment Representative Relationship Specialty Start Date End Date Mariely Osuna MD PCP - General 06/26/04 09/25/12 [facility] [place] [address] [place] [address] Ruperto Rey, PhD PCP - Mental Health/Behavioral 12/21/00 XXX NO INFO FOUND XXX Medicine documented as of this encounter
--- OUTSIDE RECORDS SUMMARY | 2022-09-25 10:55 | XMS_ITS | Encounter Summary ---
:1990 Author Organization [place] Address [address] [place] [address] Care Team Providers Name Role Phone Mariely Osuna MD Primary Care Provider Ruperto Rey PhD Unavailable Unavailable Encounter Details Date Type Department Care Team Description 10/03/2007 Telephone [facility] in Monster Bess PA-C [place] [facility] ranjith [facility] [address] [place] [address] [place] [address] [place] [address] [phone] (Wo rk) Social History Tobacco Use Types Packs/Day Years Used Date Smoking Tobacco: Never Comments: no 2nd hand smoke in the house Alcohol Use Standard Drinks/Week Comments Not Asked 0 (1 standard drink = 0.6 oz pure alcoho l) Sex Assigned at Date Recorded Not on file documented as of this encounter Miscellaneous Notes Telephone Encounter - Monster Baker PA-C - 10/03/2007 9:40 AM CST Called patient and left message to call clinic- when he gets message. NSED CLINICAL PSYCHOLOGIST documented in this encounter Plan of Treatment Not on filedocumented as of this encounter Visit Diagnoses Not on filedocumented in this encounter Care Teams Ground Transportation Operator Relationship Specialty Start Date End Date Mariely Osuna MD PCP - General 06/26/04 09/25/12 [facility] [place] [address] [place] [address] Ruperto Rey, PhD PCP - Mental Health/Behavioral 12/21/00 XXX NO INFO FOUND XXX Medicine documented as of this encounter
--- OUTSIDE RECORDS SUMMARY | 2022-09-25 10:55 | XMS_ITS | Encounter Summary ---
:1990 Author Organization [place] Address [address] [place] [address] Care Team Providers Name Role Phone Mariely Osuna MD Primary Care Provider Ruperto Rey PhD Unavailable Unavailable Bebeto Faulkner OD Unavailable Encounter Details Date Type Department Care Team Description 12/21/2007 Results Only [facility] Mariely Osuna MD in [facility] [address] [facility] [address] [place] [address] [address] [place], [place] [address] (Wo rk) Social History [...] Procedure Name Priority Date/Time Associated Diagnosis Comme [facility] US SCROTUM AND Routine 12/21/2007 9:44 AM Resu lts for this CONTENTS PERL PROGRAMMER procedure are i n the results section. documented in this encounter Results SONO SCROTUM (12/21/2007 9:44 AM PERL PROGRAMMER) Anatomical Region Laterality Modality Other Specimen (Source) Anatomical Collection Method Collection Time Re ceived Time Location / / Volume Laterality 12/21/2007 9:44 AM PERL PROGRAMMER Impressions 12/21/2007 10:38 AM PERL PROGRAMMER ULTRASOUND, SCROTUM, WITH DOPPLER ??- ??12/21/2007 HISTORY: ??Lump in the right scrotum. FINDINGS: The palpable right scrotal lum p is a circumscribed thin-walled cyst measuring 1.6 cm consis tent with epididymal cyst or spermatocele. The testicles are bilatera lly symmetric in size, echotexture and color-flow. IMPRESSION: ??Epididymal cyst or spermat ocele accounts for right scrotal palpable lump. Testicles look un remarkable. Mariely Osuna MD [employer] documented in this encounter Visit Diagnoses Not on filedocumented in this encounter Care Teams Airport Location Manager Relationship Specialty Start Date End Date Mariely Osuna MD PCP - General 06/26/04 09/25/12 [facility] [address] [place] [address] [address] [place] [address] Ruperto Rey, PhD PCP - Mental Health/Behavioral 12/21/00 XXX NO INFO FOUND XXX Medicine Bebeto Faulkner, ROSLYN PCP - Ophthalmology 10/21/07 documented as of this encounter
--- OUTSIDE RECORDS SUMMARY | 2022-09-25 10:55 | XMS_ITS | Encounter Summary ---
:1990 Author Organization [place] Address [address] [facility] [place] [place] [address] Care Team Providers Name Role Phone Mariely Osuna MD Primary Care Provider Ruperto Rey PhD Unavailable Unavailable Bebeto Faulkner OD Unavailable Dana Powell DPM Unavailable [phone] Reason for Visit Reason Comments Consult BLOSSOM QUINTERO RIGHT FOOT Encounter Details Date Type Department Care Team Description 02/15/2008 Office Visit [facility] Dana Powell OT HER SPECIFIED VIRAL System in [place] C, DPM [place] (Primary Dx) Podiatry [facility] [address] [place] [address] [place], [place] [address] [place], [place] [phone] (Wo rk) Social History Tobacco Use Types Packs/Day Years Used Date Smoking Tobacco: Never Alcohol Use Standard Drinks/Week Comments Not Asked 0 (1 standard drink = 0.6 oz pure alcoho l) Sex Assigned at Date Recorded Not on file documented as of this encounter Last Filed Vital Signs Vital Sign Reading Time Taken Comments Blood Pressure - - Pulse - - Temperature 36.6 ??C (97.9 ??F) 02/15/2008 9:00 AM CDT Respiratory Rate - - Oxygen Saturation - - Inhaled Oxygen Concentration - - Weight - - Height - - Body Mass Index - - documented in this encounter Progress Notes Dana Powell DPM - 02/15/2008 12:29 PM CDT SUBJECTIVE: John is a 17 year old male who presents today for evaluation of warts. He has had multiple freezing to these and noted resolution to warts on hand. He is here today with his mother. Past Medical History Diagnosis Date ??? ATTN DEFICIT W HYPERACT ??? DEVELOPMENT DELAY NOS Language delay - resolved ??? PHOBIA NOS Social phobia ??? OBSESSIVE-COMPULSIVE DIS ??? TIC DISORDER NOS ??? OTITIS MEDIA NOS Recurrent otitis ??? TRANSITORY TACHYPNEA ??? 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 CHRONIC TONSILLITIS Recurrent ??? PNEUMONIA, ORGANISM NOS 06/18/04 Hospitalized ??? VOLUME DEPLETION Family History Problem Relation ??? Neurological Mother migraine headaches ??? Neurological Paternal Grandmother migraine headaches ??? Depression Father Committed suicide ??? Psychiatry Father Mental illness ??? Alcohol/Drug Paternal family with history of depression,alcohol, drugs & social abuse ??? Respiratory Paternal Grandfather Emphysema ??? Hypertension Paternal Grandmother ??? Heart Paternal Grandmother Heart [place], [place] ??? Respiratory Father Asthma ??? Respiratory Mother Asthma ??? Respiratory Brother Asthma ??? Eye Maternal Uncle GLAUCOMA ??? Eye Maternal Grandmother CATARACTS ROS: constitutional symptoms: negative,Musc-skel:negative, Endo:negative and history of diabetes, Skin:warts. Past Medical History Diagnosis Date ??? ATTN DEFICIT W HYPERACT ??? DEVELOPMENT DELAY NOS Language delay - resolved ??? PHOBIA NOS Social phobia ??? OBSESSIVE-COMPULSIVE DIS ??? TIC DISORDER NOS ??? OTITIS MEDIA NOS Recurrent otitis ??? TRANSITORY TACHYPNEA ??? 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 CHRONIC TONSILLITIS Recurrent ??? PNEUMONIA, ORGANISM NOS 06/18/04 Hospitalized ??? VOLUME DEPLETION Family History Problem Relation ??? Neurological Mother migraine headaches ??? Neurological Paternal Grandmother migraine headaches ??? Depression Father Committed suicide ??? Psychiatry Father Mental illness ??? Alcohol/Drug Paternal family with history of depression,alcohol, drugs & social abuse ??? Respiratory Paternal Grandfather Emphysema ??? Hypertension Paternal Grandmother ??? Heart Paternal Grandmother Heart [place], [place] ??? Respiratory Father Asthma ??? Respiratory Mother Asthma ??? Respiratory Brother Asthma ??? Eye Maternal Uncle GLAUCOMA ??? Eye Maternal Grandmother CATARACTS Allergy injections have been documented on the paper flow sheet and filed in department by Dana oPwell DPM. OBJECTIVE: Temperature 97.9. Patient is alert and orientated to time, place and person. Muskuloskelatal: Motor- strength normal and symmetric graded at +5/5. Gait- normal including tandem walk, heel and toe walk. No gross deformities or dislocations. Rectus foot structure. Neurological: Coordination within normal limits. Patient is able to follow tasks as directed. Dermatological: Lower extremity shows positive for warts. Toenails: normal Vascular: Pedal pulses palpable. Normal hair growth pattern. Temperature warm to warm proximal to distal. No peripheral edema. ASSESSMENT: Encounter Diagnoses Code Name Primary? Qualifier ??? 078.19 OTHER SPECIFIED VIRAL WARTS Yes PLAN: Discussed with patient clinical findings and symptoms. He has classic findings for cluster warts right foot. Cryotherapy today and follow up for laser. He will begin Cimetidine with treatment of the clusters warts as well. Assessment for John will be ongoing with changes in treatment as indicated. Benefits/risks/alternatives to treatment have been reviewed and John has been instructedto contact this office if he has any questions or concerns. John will follow with podiatry laser or as needed if he has continued problems or discomfort. This plan of care has been discussed with John and he is in agreement. John voiced understanding to information discussed this visit. documented in this encounter Plan of Treatment Not on filedocumented as of this encounter Procedures Procedure Name Priority Date/Time Associated Diagnosis Comme nts HC DESTRUCT PREMALIGNANT Routine 02/15/2008 12:25 PM Other Spe cified Viral LESION, FIRST CDT Warts documented in this encounter Visit Diagnoses Diagnosis Other specified viral warts - Primary documented in this encounter Care Teams Lead Tinner Relationship Specialty Start Date End Date Mariely Osuna MD PCP - General 06/26/04 09/25/12 [facility] [address] [facility] [address] [place] [address] Ruperto Rey, PhD PCP - Mental Health/Behavioral 12/21/00 XXX NO INFO FOUND XXX Medicine Bebeto Faulkner, OD PCP - Ophthalmology 10/21/07 Dana Powell, PCP - Podiatry 02/16/08 DPM [facility] [place] [address] [facility] [address] [place] [address] documented as of this encounter
--- OUTSIDE RECORDS SUMMARY | 2022-09-25 10:55 | XMS_ITS | Encounter Summary ---
:1990 Author Organization [place] Address [address] [place] [address] Care Team Providers Name Role Phone Mariely Osuna MD Primary Care Provider Ruperto Rey PhD Unavailable Unavailable Reason for Visit Reason Comments Throat Problem sore throat, low grade fever , 0730 last dose of motrin, Encounter Details Date Type Department Care Team Description 10/06/2007 Office Visit [facility] Mariely Osuna OTHE R ACUTE SINUSITIS System in [place] (Primary Dx) Pediatrics [facility] [address] [place] [address] [place] [address] [address] [place], [place] [phone] Social History Tobacco Use Types Packs/Day Years [...] - - Temperature 36.1 ??C (97 ??F) 10/06/2007 11:30 AM POTATO SPOTTER Respiratory Rate - - Oxygen Saturation - - Inhaled Oxygen Concentration - - Weight 72.6 kg (160 lb) 10/06/2007 11:30 AM POTATO SPOTTER Height 171.5 cm (5' 7.5) 10/06/2007 11:30 AM POTATO SPOTTER Body Mass Index 24.69 10/06/2007 11:30 AM POTATO SPOTTER Body Mass Index Percentile 90.01 % 10/06/2007 11:[address] Growth Chart: [facility] (Boys, 2-20 Years) documented in this encounter Progress Notes Mariely Osuna MD - 10/06/2007 7:14 PM CST SUBJECTIVE: John is a 17 year old male here with concerns about sinus infection. He has had nasal congestion and rhinorrhea and cough for 10 days. He had onset of low grade fever and persistant sore throat Sinus risk factors:strep exposure Recent treatment:none Allergy medications:none OBJECTIVE: General: Alert, oriented, well hydrated. Skin turgor normal. Eyes: normal. Conjunctivae normal. Ears: External ears and canals are normal. TM's translucent with normal luisa landmarks. No erythemaor purulence. NOSE: NORMAL and moderate congestion. Mild tenderness to palpation over the facial bones. THROAT: mild erythema, no exudate Neck: no significant adenopathy. Chest: Easy respiration. Lungs clear to auscultation. Good air movement bilaterally without rales, wheezes, or rhonchi. Abdomen: soft without tenderness Skin: no rash ASSESSMENT: Acute sinusitus PLAN: See orders Call if not showing significant improvement in 3 to 5 days or sooner if worsen. Call if symptoms notentirely resolved when complete medication. TO SPOTTER documented in this encounter Plan of Treatment Not on filedocumented as of this encounter Visit Diagnoses Diagnosis Other acute sinusitis - Primary documented in this encounter Care Teams Vertical Contour Band Saw Operator Relationship Specialty Start Date End Date Mariely Osuna MD PCP - General 06/26/04 09/25/12 [facility] [address] [place] [address] [address] [place] [address] Ruperto Rey, PhD PCP - Mental Health/Behavioral 12/21/00 XXX NO INFO FOUND XXX Medicine documented as of this encounter
--- OUTSIDE RECORDS SUMMARY | 2022-09-25 10:55 | XMS_ITS | Encounter Summary ---
:1990 Author Organization [facility] Address [address] [place] [address] Care Team Providers Name Role Phone Mariely Osuna MD Primary Care Provider Ruperto Rey PhD Unavailable Unavailable Bebeto Faulkner OD Unavailable Reason for Visit Reason Comments Derm Problem warts on both feet Encounter Details Date Type Department Care Team Description 12/15/2007 Office Visit [facility] Mariely Osuna, MALE GENITAL DIS NEC (Primary Dx); System in [place] Novak MD OTHER SPECIFIED VIRAL WARTS; Pediatrics [facility] Ramey Plantar Warts [address] [place]ak [place] [address] [address] [place] [phone] Social History Tobacco Use Types Packs/Day Years Used Date Smoking Tobacco: Never Alcohol Use Standard Drinks/Week Comments Not Asked 0 (1 standard drink = 0.6 oz pure alcoho l) Sex Assigned at Date Recorded Not on file documented as of this encounter Last Filed Vital Signs Vital Sign Reading Time Taken Comments Blood Pressure - - Pulse - - Temperature 36.7 ??C (98 ??F) 12/15/2007 1:40 PM SUPERVISOR TRAIN OPERATIONS Respiratory Rate - - Oxygen Saturation - - Inhaled Oxygen Concentration - - Weight 73.9 kg (163 lb) 12/15/2007 1:40 PM SUPERVISOR TRAIN OPERATIONS Height - - Body Mass Index - - documented in this encounter Progress Notes Mariely Osuna MD - 12/15/2007 2:12 PM CST S: John presents for wart treatment. He has 2 to 3 areas plantar wart(s) located on the both feet. Prior cyrotherapy of hand warts successful. Also reports painless lump on right testicle no injury O: Vitals: as charted General: Patient is well nourished, alert and oriented in no acute distress. Normal mood and affect.Appropiate judgement and insight. Large cluster of plantar wart(s) located on the right Foot.base of 2nd thru 3rd toe. Few satellite small 4 warts. Left 2 small at base of 4th/5th toe plantar surface Testes: No erthema or tenderness. Soft mobile cystic nodule separate from testicle and epidydimis palpable. Pause for the cause completed. Mariely Osuna Wart(s) pared with blade. cleaned Treated with 2 freeze thaw cycles of cryotherapy. Procedure: Wart destruction Location: as described above Each wart cleaned with soapy water and dried. Liquid nitrogen applied with spray gun with 2 cycles of freeze time of 30 seconds. Patient tolerated procedure well. Bandage applied if desired. Patient instructed to keep area clean and dry. Signs of infection reviewed. OTC analgesia if needed.Return if fails to respond to therapy or further concerns. May need to be retreated in 2 weeks. Refer for ultrasound of testes with doppler flow. Consider urology consult. [employer]ISOR TRAIN OPERATIONS documented in this encounter Plan of Treatment Not on filedocumented as of this encounter Procedures Procedure Name Priority Date/Time Associated Diagnosis Comme nts HC DESTRUCT BENIGN Routine 12/15/2007 2:12 PM SUPERVISOR TRAIN OPERATIONS Plantar Wart s LESION, UP TO 14 documented in this encounter Visit Diagnoses Diagnosis Other specified disorder of male genital organs(608.89) - Primary Other specified disorder of male genital organs Plantar Warts Other specified viral warts documented in this encounter Care Teams Registered Health Nurse Relationship Specialty Start Date End Date Mariely Osuna MD PCP - General 06/26/04 09/25/12 [facility] Marty Rubin [address] [place] [address] Ruperto Rey, PhD PCP - Mental Health/Behavioral 12/21/00 XXX NO INFO FOUND XXX Medicine Bebeto Faulkner, ROSLYN PCP - Ophthalmology 10/21/07 documented as of this encounter
--- OUTSIDE RECORDS SUMMARY | 2022-09-25 10:55 | XMS_ITS | Encounter Summary ---
:1990 Author Organization [facility] Address [address] [place] [address] Care Team Providers Name Role Phone Mariely Osuna MD Primary Care Provider Ruperto Rey PhD Unavailable Unavailable Reason for Visit Reason Onset Date Comments Refill Request 09/20/2006 imitrex Encounter Details Date Type Department Care Team Description 09/20/2006 Refill [facility] Mariely Osuna Refi ll Request (imitrex) System in [place] [facility] [address] [place] [address] [address] [place], [place] [address] (Wo rk) Social History Tobacco Use Types Packs/Day Years Used Date Smoking Tobacco: Never Comments: no 2nd hand smoke in the house Alcohol Use Standard Drinks/Week Comments Not Asked 0 (1 standard drink = 0.6 oz pure alcoho l) Sex Assigned at Date Recorded Not on file documented as of this encounter Miscellaneous Notes Telephone Encounter - Lily Sears - 09/20/2006 9:12 AM CDT Faxed request from pharmacy,will be directly faxed back if approved. documented in this encounter Plan of Treatment Not on filedocumented as of this encounter Visit Diagnoses Not on filedocumented in this encounter Care Teams Molten Iron Pourer Relationship Specialty Start Date End Date Mariely Osuna MD PCP - General 06/26/04 09/25/12 [facility] [address] [place] [address] Ruperto Rey, PhD PCP - Mental Health/Behavioral 12/21/00 XXX NO INFO FOUND XXX Medicine documented as of this encounter
--- OUTSIDE RECORDS SUMMARY | 2022-09-25 10:55 | XMS_ITS | Encounter Summary ---
:1990 Author Organization [facility] Address [address] [place] [address] Care Team Providers Name Role Phone Mariely Osuna MD Primary Care Provider Ruperto Rey PhD Unavailable Unavailable Reason for Visit Reason Comments Trauma Left middle finger injury x 1/2 hours ago. Encounter Details Date Type Department Care Team Description 10/02/2007 Office Visit [facility] Monster Baker, FINGER INJURY NOS System in [place] PA-C (Primary Dx) Urgent Care [address] [place] [address] [address] [address] [place], [place] [phone] Social History Tobacco Use Types Packs/Day Years Used Date Smoking Tobacco: Never Comments: no 2nd hand smoke in the house Alcohol Use Standard Drinks/Week Comments Not Asked 0 (1 standard drink = 0.6 oz pure alcoho l) Sex Assigned at Date Recorded Not on file documented as of this encounter Last Filed Vital Signs Vital Sign Reading Time Taken Comments Blood Pressure 115/62 10/02/2007 10:30 AM SECURITY COMPLIANCE ENGINEER Pulse 93 10/02/2007 10:30 AM SECURITY COMPLIANCE ENGINEER Temperature 36.6 ??C (97.8 ??F) 10/02/2007 10:30 AM SECURITY COMPLIANCE ENGINEER Respiratory Rate - - Oxygen Saturation - - Inhaled Oxygen Concentration - - Weight - - Height - - Body Mass Index - - documented in this encounter Progress Notes Psych Rn, [facility] - 10/03/2007 8:58 AM CST SUBJECTIVE: The patient presents along with family complaining of some left middle finger discomfort times a half hour ago. He states he was wrestling with friends and cousins when his left middle finger was ???sat on?? . He states that the pain is not present when moving; however is he does move it the pain is 3of 10. He locates this in the PIP joint of his left middle finger. He is right-handed. He has not tried anything to alleviate his symptoms. He does admit to some swelling but denies any loss of strength or sensation. He has some decrease of range of motion presumably secondary to his swelling. OBJECTIVE: Vital signs noted in Epic. MUSCULOSKELETAL: Edema located at the PIP joint of the left middle finger. He is tender to palpationin this area; however I do not appreciate any bony deformity. [employer] strength 5/5 with abduction, adduction, flexion and extension. Sensation is intact and he has good range of motion at flexion and extension at that PIP joint, however it is slightly decreased presumably secondary to his edema. X-rays looked to be negative for any fracture; however final report by the radiologist is pending. ASSESSMENT AND PLAN: We will martir tape this are and put in finger split. He should recheck with his primary care provider if symptoms worsen or fail to improve, otherwise continue to ice and anti-inflammatory medications as discussed. SADIE Tom/nellie RITY COMPLIANCE ENGINEER documented in this encounter Plan of Treatment Not on filedocumented as of this encounter Procedures Procedure Name Priority Date/Time Associated Diagnosis Comme [facility] LT X-RAY EXAM Routine 10/02/2007 10:46 AM Injury, other an d Results for this OF FINGER(S) SECURITY COMPLIANCE ENGINEER unspecified, finger procedur e are in the results section. documented in this encounter Results LT X-RAY EXAM OF FINGER(S) (10/02/2007 10:46 AM SECURITY COMPLIANCE ENGINEER) Anatomical Region Laterality Modality Other Specimen (Source) Anatomical Collection Method Collection Time Re ceived Time Location / / Volume Laterality 10/02/2007 10:46 AM SECURITY COMPLIANCE ENGINEER Impressions 10/02/2007 3:47 PM SECURITY COMPLIANCE ENGINEER FINGER(S) LEFT 2-3 VIEW Oct 02, 2007 10:46:00 AM HISTORY: Injury. FINDINGS: Three views of the left ring f katheryn show a tiny avulsion fragment at the volar base of the middle phalanx. Nisreen Delacruz MD GENERAL IMAGING documented in this encounter Visit Diagnoses Diagnosis Injury, other and unspecified, finger - Primary documented in this encounter Care Teams Soloist Dancer Relationship Specialty Start Date End Date Mariely Osuna MD PCP - General 06/26/04 09/25/[address] [place] [address] Ruperto Rey, PhD PCP - Mental Health/Behavioral 12/21/00 XXX NO INFO FOUND XXX Medicine documented as of this encounter
--- OUTSIDE RECORDS SUMMARY | 2022-09-25 10:55 | XMS_ITS | Encounter Summary ---
:1990 Author Organization [facility] Address [address] [place] [address] Care Team Providers Name Role Phone Mariely Osuna MD Primary Care Provider Ruperto Rey PhD Unavailable Unavailable Bebeto Faulkner OD Unavailable Dana Powell DPM Unavailable [phone] Encounter Details Date Type Department Care Team Description 04/24/2012 Results Only [facility] Adelfo Gandhi MD in [facility] [address] [place] [address] [place] [address] [place] [address] [phone] (Wo rk) Social History Tobacco Use Types [...] Date/Time Associated Comments Diagnosis ROUTINE UA WITH STAT 04/24/2012 10:22 Results for this MICROSCOPIC REFLEX TO AM CDT proced ure are in CULTURE the results section. documented in this encounter Results (ABNORMAL) UA with Microscopic reflex to Culture (04/24/2012 10:22 AM CDT) [facility] Method Time Signature Color Urine Yellow [facility] Appearance Urine Clear [facility] Glucose Urine Negative NEG mg/dL [facility] Bilirubin Urine Negative NEG [facility] Ketones Urine Negative NEG mg/dL [facility] Specific [place] 1.019 1.003 - [facility] Urine 1.035 [facility] Blood Urine Negative NEG [facility] pH Urine 7.5 (H) 5.0 - 7.0 [facility] pH [facility] Protein Albumin Negative NEG mg/dL [facility] Urine [facility] Urobilinogen Normal 0.0 - 2.0 [place] [facility] mg/dL mg/dL [facility] Nitrite Urine Negative NEG [facility] Leukocyte Negative NEG [facility] Esterase Urine [facility] Source Midstream [place] [facility] Urine [facility] WBC Urine <1 0 - 2 [place] [facility] /HPF [facility] RBC Urine 2 0 - 2 [place] [facility] /HPF [facility] Bacteria Urine Few (A) NEG /HPF [facility] Mucous Urine Present (A) NEG /LPF [facility] Specimen Anatomical Collection Method Collection Time Receive d Time (Source) Location / / Volume Laterality 04/24/2012 10:22 04/24/2012 AM CDT 10:27 AM CDT Adelfo Gandhi MD LAB - URINE ORDERABLES Performing Organization Address City/State/ZIP Code Phon e Number [facility] [place] [address] documented in this encounter Visit Diagnoses Not on filedocumented in this encounter Care Teams Stain Maker Relationship Specialty Start Date End Date Mariely Osuna MD PCP - General 06/26/04 09/25/12 [facility] [address] [place] [address] Ruperto Rey, PhD PCP - Mental Health/Behavioral 12/21/00 XXX NO INFO FOUND XXX Medicine Bebeto Faulkner, OD PCP - Ophthalmology 10/21/07 Dana Powell, PCP - Podiatry 02/16/08 DPM [facility] [address] [place] [address] documented as of this encounter
--- OUTSIDE RECORDS SUMMARY | 2022-09-25 10:55 | XMS_ITS | Encounter Summary ---
:1990 Author Organization [facility] Address [address] [place] [address] Care Team Providers Name Role Phone Mariely Osuna MD Primary Care Provider Ruperto Rey PhD Unavailable Unavailable Bebeto Faulkner OD Unavailable Dana Powell DPM Unavailable [phone] Reason for Visit Reason Comments Throat Problem Encounter Details Date Type Department Care Team Description 04/11/2009 Office Visit [facility] Mariely Osuna Acut e Pharyngitis; System in [place] Other Malaise and Fatigue; Pediatrics [facility] [place] SOB (Shortness of Breath) on Exertion [address] [place] [address] [place] [address] [address] [place] [phone] Social History Tobacco Use Types Packs/Day Years Used Date Smoking Tobacco: Passive Smoke Exposure - Never Smoker Alcohol Use Standard Drinks/Week Comments Not Asked 0 (1 standard drink = 0.6 oz pure alcoho l) Sex Assigned at Date Recorded Not on file documented as of this encounter Progress Notes Mariely Osuna MD - 04/15/2009 1:57 PM CDT CLINIC ENCOUNTER SUBJECTIVE: Royal Gavin is in today with his mother with concerns about onset of stomachache, achy feeling, fever, sore throat, rhinorrhea, congestion and cough that began about five days ago and would like a strep test done. His triage notes by the nurse are noted and confirmed with the family. His rapid strep is negative and he will continue symptomatic treatment for these symptoms pending his overnight throat culture result. More of a concern is that mother complains that she has been very concerned about his degree of fatigue. He is unable to fully participate in any activities. He will go to do a chore such as building a house. It seems like he needs to go inside and sit down frequently. He has had rapid weight gain on his Risperdal medication. They have recently increased his Trileptal. He continues on Concerta. He still takes trazodone at bedtime. His medications are managed by a psychiatrist. Mother is trying to wean him off his Risperdal due to the rapid weight gain. He does smoke and chew tobacco. Mother is unsure how much he is smoking and does not directly observe him smoking very frequently. Royal does not answer the question. When I asked him specifically about what makes him stop an activity he complains that he sometimes feels dizzy or short of breath. When he sits down he usually feels recovered in about ten minutes. He has had no loss of consciousness. He is not getting any regular activity on a daily basis. OBJECTIVE: On physical exam he is alert, comfortable. HEENT: Conjunctivae are clear. Both TMs are translucent. Oropharynx shows mild erythema. Tonsils are absent. NECK: Supple with no adenopathy or thyromegaly. CHEST: Good air entry. Clear to auscultation. CARDIOVASCULAR: Regular rate and rhythm. No murmur appreciated. ABDOMEN: Soft. No hepatosplenomegaly. No mass. SKIN: He has no rash. His pulses are full and equal. ASSESSMENT: Viral pharyngitis as noted above with negative rapid strep. PLAN: 1. Symptomatic treatment. 2. Discussion of fatigue. I strongly suspect that Royal's fatigue is due to deconditioning given his minimal activity and weight gain. We did, however, discuss screening labs and will do fasting labs either tomorrow or next week with a fasting lipid profile, glucose, mono, CBC, diff, thyroid function, ferritin, ALT, AST. He does a peak flow here which shows a peak flow of 400 but the predicted of 500 which is within normal limits. Mother will continue encouraging him to be active on a daily basis. He is strongly encouraged to eliminate smoking. If there are abnormalities or if he has persistent fatigue, could consider formal pulmonary function testing, EKG and possible echo. Mother is in agreement with the plan. Royal is in agreement with the plan. Appointment time is 25 minutes. Mariely Osuna M.D. MNCaron/law cc: Mariely Osuna MD - 04/11/2009 7:08 PM CDT Insert dictation. Mariely Osuna MD - 04/11/2009 11:12 AM CDT SUBJECTIVE: Sudden onset of sore throat for 5 days. History of fever: Yes Complains of swollen glands: No Complains of swollen tonsils: Yes Complains of headache: Yes Has John been exposed to household member, daycare or very close contact with someone with strep throat in the past 5 days: NO TRIAGE TEXT: If the patient answers yes to any of the following questions, advise on home remedies or see MD if indicated/desired. Rhinorrhea: Yes Cough: Yes Hoarseness: Yes Diarrhea: No COMPLICATING FACTORS: Serious symptoms (trouble breathing, drooling, inability to swallow liquids)? No Severe abdominal pain and/or severe vomitting? No Ear Pain:? No History of rheumatic fever?: No Pt. on chemotherapy/or immunosuppressed? No Insulin Dependent Diabetes? No Patient on antibiotics? No Sore throat > 5 days? No Reoccurrence of symptoms within 7 days of being treated for strep? No Multiple drug allergies: Zithromax Age less than 5 years? No Have there been more than 2 Positive Strep test in the past 6 months without a provider visit? No ? No Patient referred to provider - Yes Katheryn Hobbs documented in this encounter Plan of Treatment Not on filedocumented as of this encounter Procedures Procedure Name Priority Date/Time Associated Diagnosis Comme nts HCL STREP GROUP A Routine 04/11/2009 11:11 AM Acute Pharyngiti s Results for this ANTIGEN (RAPID) CDT procedure ar e in the results section. HCL BETA STREP Routine 04/11/2009 11:11 AM Acute Pharyngitis R esults for this CONFIRM CDT procedure are i n the results section. documented in this encounter Results BETA STREP CONFIRM (04/11/2009 11:11 AM CDT) Component Value Ref Test Analysis Performed At [facility] Range Method Time Signature Specimen Throat [facility] Culture Micro No Beta [facility] Streptococcus [facility] isolated Report status FINAL 04/13/2009 [facility] Specimen Anatomical Collection Method Collection Time Receive d Time (Source) Location / / Volume Laterality 04/11/2009 11:11 04/11/2009 AM CDT 12:06 PM CDT Mariely Osuna MD LABORATORY Performing Organization Address City/State/ZIP Code Phon e Number [facility] [address] STREP GROUP A ANTIGEN (RAPID) (04/11/2009 11:11 AM CDT) Component Value Ref Test Analysis Performed At [facility] Range Method Time Signature Specimen [facility] Description [facility] Rapid Strep A NEGATIVE: No Group A strepto coccal antigen detected by immunoassay, await [facility] Screen culture report. [facility] Report status FINAL 04/11/2009 [facility] Specimen Anatomical Collection Method Collection Time Receive d Time (Source) Location / / Volume Laterality 04/11/2009 11:11 04/11/2009 AM CDT 11:16 AM CDT Mariely Osuna MD LABORATORY Performing Organization Address City/State/ZIP Code Phon e Number [facility] [address] documented in this encounter Visit Diagnoses Diagnosis Acute pharyngitis Other malaise and fatigue SOB (shortness of breath) on exertion Shortness of breath documented in this encounter Care Teams Patient Service Rep Relationship Specialty Start Date End Date Mariely Osuna MD PCP - General 06/26/04 09/25/12 [facility] [address] [place] [address] Ruperto Rey, PhD PCP - Mental Health/Behavioral 12/21/00 XXX NO INFO FOUND XXX Medicine Bebeto Faulkner, OD PCP - Ophthalmology 10/21/07 Dana Powell, PCP - Podiatry 02/16/08 DPM [facility] [place] [address] [place] [address] documented as of this encounter
--- OUTSIDE RECORDS SUMMARY | 2022-09-25 10:55 | XMS_ITS | Encounter Summary ---
:1990 Author Organization [facility] Address [address] [place] [address] Care Team Providers Name Role Phone Mariely Osuna MD Primary Care Provider Ruperto Rey PhD Unavailable Unavailable Bebeto Faulkner OD Unavailable Dana Powell DPM Unavailable [phone] Reason for Visit Reason Comments Throat Problem Encounter Details Date Type Department Care Team Description 04/04/2008 Office Visit [facility] Mariely Osuna ACUT E PHARYNGITIS (Primary Dx); System in [place] STREP SORE THROAT Pediatrics [facility] [place] [address] [facility] [place] [address] [address] [place] [phone] Social History Tobacco Use Types Packs/Day Years Used Date Smoking Tobacco: Never Alcohol Use Standard Drinks/Week Comments Not Asked 0 (1 standard drink = 0.6 oz pure alcoho l) Sex Assigned at Date Recorded Not on file documented as of this encounter Last Filed Vital Signs Vital Sign Reading Time Taken Comments Blood Pressure - - Pulse - - Temperature 36.8 ??C (98.3 ??F) 04/04/2008 3:20 PM CDT Respiratory Rate - - Oxygen Saturation - - Inhaled Oxygen Concentration - - Weight 78.5 kg (173 lb) 04/04/2008 3:20 PM CDT Height 173.4 cm (5' 8.25) 04/04/2008 3:20 PM CDT Body Mass Index 26.11 04/04/2008 3:20 PM CDT Body Mass Index Percentile 92.89 % 04/04/2008 3:20 PM CD T Growth Chart: [facility] (Boys, 2-20 Years) documented in this encounter Progress Notes Mariely Osuna MD - 04/04/2008 4:09 PM CDT Triage notes reviewed and verified. Did have strep exposure to household member. OBJECTIVE: Temp (Src) 98.3 (Tympanic) Ht 5' 8.25 (1.73m) Wt 173 lbs (78.5kg) General: Alert, oriented, well hydrated. Skin turgor normal. Eyes: Conjunctivae normal. No discharge. Ears: External ears and canals are normal. TM's translucent with normal luisa landmarks. No erythemaor purulence. THROAT: PHARYNGEAL ERYTHEMA and TONSILS ABSENT Neck: Bilateral small mobile cervical nodes. Chest: Easy respiration. Lungs clear to auscultation. Good air movement bilaterally without rales, wheezes, or rhonchi. Abdomen: soft without tenderness, guarding, mass or organomegaly. Bowel sounds are normal. Skin: No noted rash Lab: SEE ORDERED STREP TEST Assessment: STREP PHARYNGITIS Plan: 1. SEE ORDERS 2. Symptomatic treatment. Hand out given. 3. Exclude from school or daycare for 24 hours. 4. Return if not improving within 48 to 72 hours or other concerns. Olya Hobbs - 04/04/2008 3:32 PM CDT Sudden onset of sore throat x 7 days. History of fever: Yes Complains of swollen glands: Yes Complains of swollen tonsils: Yes Complains of headache: Yes Has John been exposed to household member, daycare or very close contact with someone with strep throat in the past 5 days: NO TRIAGE TEXT: If the patient answers yes to any of the following questions, advise on home remedies or see MD if indicated/desired. Rhinorrhea: No Cough: No Hoarseness: Yes Diarrhea: No COMPLICATING FACTORS: (if yes, patient must see MD). Serious symptoms (trouble breathing, drooling, inability to swallow liquids)? No Ear Pain:? No History of rheumatic [...] without a provider visit? No ? No Katheryn Hobbs documented in this encounter Plan of Treatment Not on filedocumented as of this encounter Procedures Procedure Name Priority Date/Time Associated Diagnosis Comme nts HCL STREP GROUP A Routine 04/04/2008 3:35 PM Acute Pharyngitis Results for this AG (RAPID) CDT procedure are i n the results section. documented in this encounter Results RAPID STREP (04/04/2008 3:35 PM CDT) Component Value Ref Test Analysis Performed At [facility] Range Method Time Signature Specimen Throat [place] Description [facility] Rapid Strep A POSITIVE: Group A Streptococ shonda antigen detected by immunoassay. CORRECTED ON OBOOK RED Screen 04/04 AT 1605: PREVIOUSLY R EPORTED NEGATIVE: No Group A streptococcal [facility] antigen detected by immunoassay, await culture report. Report status FINAL 04/04/2008 [place] Code [facility] LAB/RAD Specimen Anatomical Collection Method Collection Time Receive d Time (Source) Location / / Volume Laterality 04/04/2008 3:35 PM 8 3:36 CDT PM CDT Mariely Osuna MD LABORATORY Performing Organization Address City/State/ZIP Code Phon e Number [facility] [place] [address] documented in this encounter Visit Diagnoses Diagnosis Acute pharyngitis - Primary Streptococcal sore throat documented in this encounter Care Teams Bridge Maintainer Relationship Specialty Start Date End Date Mariely Osuna MD PCP - General 06/26/04 09/25/12 [facility] [place] [address] [place] [address] Ruperto Rey, PhD PCP - Mental Health/Behavioral 1/23/01 6 /16/22 XXX NO INFO FOUND XXX Medicine Lucie, Bebeto M, OD PCP - Ophthalmology 10/21/07 Dana Powell, PCP - Podiatry 02/16/08 DPM [facility] [place] [address] [facility] [address] [place] [address] documented as of this encounter
--- OUTSIDE RECORDS SUMMARY | 2022-09-25 10:55 | XMS_ITS | Encounter Summary ---
:1990 Author Organization [facility] Address [address] [place] [address] Care Team Providers Name Role Phone Mariely Osuna MD Primary Care Provider Ruperto Rey PhD Unavailable Unavailable Bebeto Faulkner OD Unavailable Reason for Visit Reason Comments Two Year Eye Exam Encounter Details Date Type Department Care Team Description 10/19/2007 Office Visit [facility] Bebeto Faulkner EYE & VISION EXAMINATION(aka V72.0); System in [place], OD HEADACHE; Ophthalmology [facility] [place] [address] [place] [address] [place], [place] [address] [address] [place], [place] [phone] [id number] Social History Tobacco Use Types Packs/Day Years Used Date Smoking Tobacco: Never Alcohol Use Standard Drinks/Week Comments Not Asked 0 (1 standard drink = 0.6 oz pure alcoho l) Sex Assigned at Date Recorded Not on file documented as of this encounter Progress Notes Bebeto Faulkner, OD - 10/26/2007 8:22 AM [facility] ENCOUNTER SLIT LAMP EXAM: Shows angles to be open. Corneas and lenses - No apparent pathology. Media clear both eyes. Bulbar and palpebral conjunctivae clear. Lids clear both eyes. INTERNAL: C/D = 0.25, 0.25. A/V = 3/4. FUNDUS: No apparent pathology. Macular reflex minus, both eyes. Having only fleeting glimpses of retina because of a high amount of photophobia. IMPRESSION: Low amount of myopia. Headaches, which do not appear to be visually related.PLAN: Manifest refraction was given to wear as needed for distance. Reevaluate in two years, sooner if problems. Bebeto Faulkner O.D. Ad cc: TNEY Gomez, Starla Ortega - 10/19/2007 8:56 AM CST Pain Questionnaire: Is your visit today because of Pain? NO C.C - HERE FOR EYE EXAM-NO GLASSES HPI - HAS NOTICED HIS VISION IS BLURRY. TROUBLE SEEING THE BOARD AT SCHOOL. HAS ALSO BEEN HAVING HEADACHES FOR THE PAST FEW YEARS. HIS MOTHER IS ALONG FOR VISIT, STATES SHE SEES HER SON SQUINTNG AND BLINKING HIS EYES, AND A LITTLE MATTERY EYES. ALSO HAS NOTICED HER SON 'SHAKES HIS HEAD' AT TIMES, PATIRNT STATES HIS VISION CLEARS AFTER SHKING HIS HEAD. STATES HE JUST SAW LIGHT FLASHES LAST NIGHT, AND HAS NOTICED FLOATERS FOR A WHILE. DOES NOT USE ANY EYE DROPS AT THIS TIME. STATES HE IS LIGHT SENSITIVE AT TIMES. Starla Ortega Jason 10/19/2007 REVIEW OF SYSTEMS: Skin: negative. Eyes: negative. Ears/Nose/Throat: negative. Respiratory: negative. Cardiovascular: negative. Gastrointestinal: negative. Genitourinary: negative. Musculoskeletal: negative. Neurologic: negative. Psychiatric: negative. Hematologic/Lymphatic/Immunologic: negative. Endocrine: negative. MEDICATIONS: Current outpatient prescriptions Medication Sig ??? RISPERDAL 0.5 MG OR TABS 2 x a dya ??? TRILEPTAL 600 MG OR TABS once a day ??? CONCERTA 54 MG OR TBCR one 54 mg tab daily ??? TRAZODONE HCL 50 MG OR TABS 1 bedtime ??? WESTCORT 0.2 % EX CREA Apply to affected area BID ??? ADVIL 200 MG OR CAPS prn, per mom . FAMILY HISTORY: Family History Problem Relation ??? Neurological Mother migraine headaches ??? Neurological Paternal Grandmother migraine headaches ??? Depression Father Committed suicide ??? Psychiatry Father Mental illness ??? Alcohol/Drug Paternal family with history of depression,alcohol, drugs & social abuse ??? Respiratory Paternal Grandfather Emphysema ??? Hypertension Paternal Grandmother ??? Heart Paternal Grandmother Heart [place], [place] ??? Respiratory Father Asthma ??? Respiratory Mother Asthma ??? Respiratory Brother Asthma TBAND DRUMMER Bebeto Faulkner, OD - 10/19/2007 8:47 AM CST John Gavin is here for an exam. ON EXAM: Near point convergence: to nose. Mobility: FROM. Pupils: PERRLA, MG and no afferent defect. Visual Field: Confrontation, WNL OD & OS. COVER:6 X' Induced Phorias: Distance: unable . Near:. Vertical Phoria:. TBAND DRUMMER documented in this encounter Plan of Treatment Not on filedocumented as of this encounter Visit Diagnoses Diagnosis EYE & VISION EXAMINATION(aka V72.0) Examination of eyes and vision Headache(784.0) Headache Myopia documented in this encounter Care Teams Flour Blender Relationship Specialty Start Date End Date Mariely Osuna MD PCP - General 06/26/04 09/25/12 [facility] [address] [place] [address] [address] [place] [address] Ruperto Rey, PhD PCP - Mental Health/Behavioral 12/21/00 XXX NO INFO FOUND XXX Medicine Bebeto Faulkner, OD PCP - Ophthalmology 10/21/07 documented as of this encounter
--- OUTSIDE RECORDS SUMMARY | 2022-09-25 10:55 | XMS_ITS | Encounter Summary ---
:1990 Author Organization [facility] Address [address] [place] [address] Care Team Providers Name Role Phone Mariely Osuna MD Primary Care Provider Ruperto Rey PhD Unavailable Unavailable Reason for Visit Reason Comments Derm Problem warts on both hands, 10/01/06 had them worked on Cough coughing x 2 weeks, worsened over this weekend Encounter Details Date Type Department Care Team Description 03/14/2007 Office Visit [facility] Mariely Osuna OTHE R ACUTE SINUSITIS; System in [place] MD OTHER SPECIFIED VIRAL WARTS Pediatrics [facility] [address] [facility] [place] [address] [address] [place], [place] [phone] Social History Tobacco Use Types Packs/Day Years [...] - - Temperature 36.1 ??C (97 ??F) 03/14/2007 8:30 AM CDT Respiratory Rate - - Oxygen Saturation - - Inhaled Oxygen Concentration - - Weight 64.4 kg (142 lb) 03/14/2007 8:30 AM CDT Height 167.6 cm (5' 6) 03/14/2007 8:30 AM CDT Body Mass Index 22.92 03/14/2007 8:30 AM CDT Body Mass Index Percentile 84.31 % 03/14/2007 8:30 AM CD T Growth Chart: [facility] (Boys, 2-20 Years) documented in this encounter Progress Notes Mariely Osuna MD - 03/14/2007 11:33 AM CDT SUBJECTIVE: John is a 16 year old male here with concerns about sinus infection. He has had nasal congestion and rhinorrhea for 2 weeks. He had onset of productive cough. No shortness of breath no fever. Sinus risk factors:None Recent treatment:none Allergy medications:none OBJECTIVE: General: Alert, oriented, well hydrated. Skin turgor normal. Eyes: normal. Conjunctivae normal. Ears: External ears and canals are normal. TM's translucent with normal luisa landmarks. No erythemaor purulence. NOSE: NORMAL and moderate congestion. Mild tenderness to palpation over the facial bones. THROAT: NORMAL - no erythema, no adenopathy, no exudates. Neck: no significant adenopathy. Chest: Easy respiration. Lungs clear to auscultation. Good air movement bilaterally without rales, wheezes, or rhonchi. Abdomen: soft without tenderness Skin: no rash ASSESSMENT: Acute sinusitus PLAN: See orders Call if not showing significant improvement in 3 to 5 days or sooner if worsen. Call if symptoms notentirely resolved when complete medication. Problem # 2: Wart Subjective: The patient is here for follow up of warts, previously treated by Dr Tinoco months ago Objective: Exam discloses wart(s) on the dorsum of hand - very large 1 cm wart on 3rd digit of right hand with 4 adjacent smaller periungal warts. 1 at base of 5th digit. Left hand with 3 small periungal warts. Assessment: Warts, persistant. Plan: Reviewed wart info. WARTS: Discussed viral etiology, treatment options including observation, wish therapy, duct tape, OTC acid therapy and destruction methods such as freezing. Discussion included information about failure/success rates and need for multiple treatments. After discussion, family elects repeat cryotherapy Repeat Liquid Nitrogen was applied - 30 sec x 2 for lg wart, 15 sec x 2 for smaller warts.; continueto see at intervals until resolved. documented in this encounter Plan of Treatment Not on filedocumented as of this encounter Procedures Procedure Name Priority Date/Time Associated Diagnosis Comme nts HC DESTRUCT BENIGN Routine 03/14/2007 9:30 AM CDT Other Specif ied Viral LESION, UP TO 14 Warts documented in this encounter Visit Diagnoses Diagnosis Other acute sinusitis Other specified viral warts documented in this encounter Care Teams Security Specialist Relationship Specialty Start Date End Date Mariely Osuna MD PCP - General 06/26/04 09/25/[address] [place] [address] Ruperto Rey, PhD PCP - Mental Health/Behavioral 12/21/00 XXX NO INFO FOUND XXX Medicine documented as of this encounter
--- OUTSIDE RECORDS SUMMARY | 2022-09-25 10:55 | XMS_ITS | Encounter Summary ---
:1990 Author Organization [facility] Address [address] [place] [address] Care Team Providers Name Role Phone Mariely Osuna MD Primary Care Provider Ruperto Rey PhD Unavailable Unavailable Bebeto Faulkner OD Unavailable Dana Powell DPM Unavailable [phone] Reason for Referral - Closed Specialty Diagnoses / Procedures Referred By Contact Refer red To Contact Diagnoses Bipolar I disorder, most recent episode (or current) unspecified Depression Mariely Osuna MD [facility] [address] [place] [address] Referral ID Status Reason Start Date Expiration Date Visits Requ ested Visits Authorized [id number] Closed 07/30/2011 01/26/2012 1 1 Reason for Visit Reason Onset Date Comments Orders 07/30/2011 fax an order to [facility] Encounter Details Date Type Department Care Team Description 07/30/[address] [facility] Mariely Osuna Or[place] rs (fax an order to System in [place] MD [place]) Pediatrics [facility] [address] [place] [address] [address] [place] [address] Social History Tobacco Use Types Packs/Day Years Used Date Smoking Tobacco: Passive Smoke Exposure - Never Smoker Alcohol Use Standard Drinks/Week Comments Not Asked 0 (1 standard drink = 0.6 oz pure alcoho l) Sex Assigned at Date Recorded Not on file documented as of this encounter Miscellaneous Notes Telephone Encounter - Priscila Villegas - 07/30/2011 6:06 PM CDT Referral faxed to [facility] Telephone Encounter - Mariely Osuna MD - 07/30/2011 12:34 PM CDT Order entered. Please complete. Telephone Encounter - Olya Hobbs - 07/30/2011 10:44 AM CDT Situation/What is the patient???s concern/need: Mom called asking for an order for him to be seen at [facility] in the psychiatric dept. He was just released from an in pt facillity for a suicide attempt. She has not yet found him an adult provider. Clinical Background/Recent Intervention: depression Recommendation/Patient Request: Fax an order to [facility] at [phone] Best number(s) to reach patient: home [phone] documented in this encounter Plan of Treatment Not on filedocumented as of this encounter Visit Diagnoses Diagnosis BIPOLAR - MOST RECENT EPISODE UNSPECIFIE D - Primary Bipolar I disorder, most recent episode (or current) unspecified Depression Depressive disorder, not elsewhere class ified documented in this encounter Care Teams Journeyman Patternmaker Relationship Specialty Start Date End Date Mariely Osuna MD PCP - General 06/26/04 09/25/12 [facility] [address] [facility] [address] [place] [address] Ruperto Rey, PhD PCP - Mental Health/Behavioral 12/21/00 XXX NO INFO FOUND XXX Medicine Bebeto Faulkner, ROSLYN PCP - Ophthalmology 10/21/07 Dana Powell, PCP - Podiatry 02/16/[address] [facility] [place] [address] [place] [address] documented as of this encounter
--- OUTSIDE RECORDS SUMMARY | 2022-09-25 10:55 | XMS_ITS | Encounter Summary ---
:1990 Author Organization [place] Address [address] [place] [address] Care Team Providers Name Role Phone Mariely Osuna MD Primary Care Provider Ruperto Rey PhD Unavailable Unavailable Reason for Visit Reason Comments Insect Bites wood tick, head still in on right side of body Encounter Details Date Type Department Care Team Description 04/12/[address] [facility] Mariely Osuna INSE CT BITE TRUNK System in [place] (Primary Dx) Pediatrics [facility] [address] [place] [address] [place] [address] [place] [address] [address] [place], [place] [phone] Social History Tobacco Use Types Packs/Day Years [...] - - Temperature 36.1 ??C (97 ??F) 04/12/2006 2:40 PM CDT Respiratory Rate - - Oxygen Saturation - - Inhaled Oxygen Concentration - - Weight 44.1 kg (97 lb 4.8 oz) 04/12/2006 2:40 PM CDT Height - - Body Mass Index - - documented in this encounter Progress Notes Mariely Osuna MD - 04/12/2006 2:55 PM CDT Small tick removed this am - concerned parts left in place. Probably in place less than 24 hours. OBJECTIVE: Mild erythema - no significant remaining tick parts - possible small mouth part remaining ASSESSMENT: Tick bite - not infected. Mouth parts do not need to be removed - will be extruded as foreign body. PLAN: Bacitracin bandaid applied. Watch for large area of erythema/signs of infection and call prn. documented in this encounter Plan of Treatment Not on filedocumented as of this encounter Visit Diagnoses Diagnosis Trunk, insect bite, nonvenomous, without mention of infection(911.4) - Primary Trunk, insect bite, nonvenomous, without mention of infection documented in this encounter Care Teams Filler Feeder Relationship Specialty Start Date End Date Mariely Osuna MD PCP - General 06/26/04 09/25/12 [facility] [address] [place] [address] [address] [place] [address] Ruperto Rey, PhD PCP - Mental Health/Behavioral 12/21/00 XXX NO INFO FOUND XXX Medicine documented as of this encounter
--- OUTSIDE RECORDS SUMMARY | 2022-09-25 10:55 | XMS_ITS | Encounter Summary ---
:1990 Author Organization [facility] Address [address] [place] [address] Care Team Providers Name Role Phone Mariley Osuna MD Primary Care Provider Ruperto Rey PhD Unavailable Unavailable Bebeto Faulkner OD Unavailable Dana Powell DPM Unavailable [phone] Encounter Details Date Type Department Care Team Description 04/16/2009 Orders Only [employer] [place] her Malaise and Fatigue; in [place] Lab SOB (Shortness of Breath) on Exertion [address] [place] [phone] Social History Tobacco Use Types Packs/Day [...] Name Priority Date/Time Associated Diagnosis Comme nts CL AFF CBC WITH Routine 04/16/2009 9:11 AM Other Malaise and R esults for this PLATELETS, DIFF CDT Fatigue procedure are in SOB (Shortness of the result s Breath) on Exertion section. HCL MONO TEST Routine 04/16/2009 9:11 AM Other Malaise and Res ults for this CDT Fatigue procedure are in SOB (Shortness of the result s Breath) on Exertion section. HCL TSH W/FREE T4 Routine 04/16/2009 9:11 AM Other Malaise and Results for this REFLEX CDT Fatigue procedure are in SOB (Shortness of the result s Breath) on Exertion section. HCL GLUCOSE Routine 04/16/2009 9:11 AM Other Malaise and Resu lts for this CDT Fatigue procedure are in SOB (Shortness of the result s Breath) on Exertion section. HCL FERRITIN Routine 04/16/2009 9:11 AM Other Malaise and Resu lts for this CDT Fatigue procedure are in SOB (Shortness of the result s Breath) on Exertion section. HCL ALT Routine 04/16/2009 9:11 AM Other Malaise and Resu lts for this CDT Fatigue procedure are in SOB (Shortness of the result s Breath) on Exertion section. HCL AST Routine 04/16/2009 9:11 AM Other Malaise and Resu lts for this CDT Fatigue procedure are in SOB (Shortness of the result s Breath) on Exertion section. CL AFF A.M.A. LIPID Routine 04/16/2009 9:11 AM Other Malaise a nd Results for this PANEL CDT Fatigue procedure are in SOB (Shortness of the result s Breath) on Exertion section. documented in this encounter Results GLUCOSE (04/16/2009 9:11 AM CDT) athologist Signature Glucose 93 60 - 99 [facility] mg/dL [facility] Comment: Fasting specimen Specimen Anatomical Collection Method Collection Time Receive d Time (Source) Location / / Volume Laterality 04/16/2009 9:11 AM 9 9:12 CDT AM CDT Mariely Osuna MD LABORATORY Performing Organization Address City/State/ZIP Code Phon e Number [facility] [place] [facility] [address] (ABNORMAL) A.M.A. LIPID PANEL (04/16/2009 9:11 AM CDT) athologist Signature Cholesterol 139 0 - 200 [facility] mg/dL [facility] Comment: LDL Cholesterol is the primary guide to therapy: LDL-cholesterol goal in high risk patients is <100 mg/dL and in very high risk patients is <70 mg/dL. The NCEP recommends further evaluation of: patients with cholesterol <200 mg/dL if additional risk factors are present, cholesterol >240 mg/dL, triglycerides >150 mg/dL, or HDL <40 mg/dL. Triglycerides 107 0 - 150 mg/dL [facility] Comment: Fasting specimen HDL Cholesterol 28 (L) 40 - 110 mg/dL [facility] LDL Cholesterol Calculated 90 0 - 129 mg/dL [facility] VLDL-Cholesterol 21 0 - 30 mg/dL [facility] Cholesterol/HDL Ratio 5.0 0.0 - 5.0 [facility] Specimen Anatomical Collection Method Collection Time Receive d Time (Source) Location / / Volume Laterality 04/16/2009 9:11 AM 9 9:12 CDT AM CDT Mariely Osuna MD LABORATORY Performing Organization Address City/State/ZIP Code Phon e Number [facility] [address] MONO HETEROPHILE (04/16/2009 9:11 AM CDT) Patholo gist Method Time Signature Mononucleosis Negative NEG [facility] Screen [facility] Specimen Anatomical Collection Method Collection Time Receive d Time (Source) Location / / Volume Laterality 04/16/2009 9:11 AM 9 9:12 CDT AM CDT Mariely Osuna MD LABORATORY Performing Organization Address City/State/ZIP Code Phon e Number [facility] [address] ALANINE AMINO (ALT) (SGPT) (04/16/2009 9:11 AM CDT) P athologist Signature ALT 15 0 - 50 U/L [facility] Specimen Anatomical Collection Method Collection Time Receive d Time (Source) Location / / Volume Laterality 04/16/2009 9:11 AM 9 9:12 CDT AM CDT Mariely Osuna MD LABORATORY Performing Organization Address City/State/ZIP Code Phon e Number [facility] [address] AST (04/16/2009 9:11 AM CDT) P athologist Signature AST 43 0 - 45 U/L [facility] Specimen Anatomical Collection Method Collection Time Receive d Time (Source) Location / / Volume Laterality 04/16/2009 9:11 AM 9 9:12 CDT AM CDT Mariely Osuna MD LABORATORY Performing Organization Address City/State/ZIP Code Phon e Number [facility] [address] FERRITIN (04/16/2009 9:11 AM CDT) athologist Signature Ferritin 29 20 - 300 [facility] ng/mL [facility] Specimen Anatomical Collection Method Collection Time Receive d Time (Source) Location / / Volume Laterality 04/16/2009 9:11 AM 9 9:12 CDT AM CDT Mariely Osuna MD LABORATORY Performing Organization Address City/State/ZIP Code Phon e Number [facility] [address] TSH W/FREE T4 REFLEX (04/16/2009 9:11 AM CDT) athologist Signature TSH 1.47 0.4 - 5.0 [facility] mU/L [facility] Specimen Anatomical Collection Method Collection Time Receive d Time (Source) Location / / Volume Laterality 04/16/2009 9:11 AM 9 9:12 CDT AM CDT Mariely Osuna MD LABORATORY Performing Organization Address City/State/ZIP Code Phon e Number [facility] [address] CBC WITH PLATELETS, DIFF (04/16/2009 9:11 AM CDT) [facility] gist Method Time Signature WBC 6.0 4.0 - [facility] 11.0 [facility] 10e9/L RBC Count 4.91 3.7 - 5.3 [facility] 10e12/L [facility] Hemoglobin 15.1 11.7 - [facility] 15.7 g/dL [facility] Hematocrit 42.0 35.0 - [facility] 47.0 % [facility] MCV 86 77 - 100 [facility] fl [facility] MCH 30.8 26.5 - [facility] 33.0 pg [facility] MCHC 36.0 31.5 - [facility] 36.5 g/dL [facility] RDW 11.9 10.0 - [facility] 15.0 % [facility] Platelet Count 220 150 - 450 [facility] 10e9/L [facility] Diff Method Automated [facility] Method [facility] % Neutrophils 63 32 - 64 % [facility] % Lymphocytes 26 26 - 50 % [facility] % Monocytes 9 0 - 12 % [facility] % Eosinophils 1 0 - 6 % [facility] % Basophils 1 0 - 2 % [facility] Absolute 3.8 1.3 - 7.0 [facility] Neutrophil 10e9/L [facility] Absolute 1.5 1.0 - 5.8 [facility] Lymphocytes 10e9/L [facility] Absolute 0.5 0.0 - 1.3 [facility] Monocytes 10e9/L [facility] Absolute 0.1 0.0 - 0.7 [facility] Eosinophils 10e9/L [facility] Absolute 0.0 0.0 - 0.2 [facility] Basophils 10e9/L [facility] Specimen Anatomical Collection Method Collection Time Receive d Time (Source) Location / / Volume Laterality 04/16/2009 9:11 AM 9 9:12 CDT AM CDT Mariely Osuna MD LABORATORY Performing Organization Address City/State/ZIP Code Phon e Number [facility] [address] documented in this encounter Visit Diagnoses Diagnosis Other malaise and fatigue SOB (shortness of breath) on exertion Shortness of breath documented in this encounter Care Teams Paster Operator Relationship Specialty Start Date End Date Mariely Osuna MD PCP - General 06/26/04 09/25/12 [facility] [place] [address] [place] [address] Ruperto Rey, PhD PCP - Mental Health/Behavioral 12/21/00 XXX NO INFO FOUND XXX Medicine Bebeto Faulkner, OD PCP - Ophthalmology 10/21/07 Dana Powell, PCP - Podiatry 02/16/08 DPM [facility] [address] [place] [address] documented as of this encounter
--- OUTSIDE RECORDS SUMMARY | 2022-09-25 10:55 | XMS_ITS | Encounter Summary ---
:1990 Author Organization [facility] Address [address] [place] [address] Care Team Providers Name Role Phone Mariely Osuna MD Primary Care Provider Ruperto Rey PhD Unavailable Unavailable Reason for Visit Reason Comments Cough deep cough X 3 weeks, gave augmentin-didn't seem to help symptoms Fever X 3 weeks off and on. Advil this am. Derm Problem wart on finger, has tried ot c products, reddened area around mouth Encounter Details Date Type Department Care Team Description 10/01/2006 Office Visit [facility] Otto Tinoco, VIRAL WARTS NOS; System in [place] ACUTE SINUSITIS NOS; Pediatrics [facility] [place] SEBORRHEIC DERMATITIS OTHER [address] [place], [place] [address] [phone] [place], [place] [phone] [id number] Social History Tobacco Use Types Packs/Day Years [...] Pressure - - Pulse - - Temperature 36 ??C (96.8 ??F) 10/01/2006 8:40 AM ASSISTANT COUNSEL Respiratory Rate - - Oxygen Saturation - - Inhaled Oxygen Concentration - - Weight 55.3 kg (122 lb) 10/01/2006 8:40 AM ASSISTANT COUNSEL Height - - Body Mass Index - - documented in this encounter Progress Notes Otto Tinoco MD - 10/01/2006 10:02 AM CST SUBJECTIVE: Chief Complaint Patient presents with ??? Cough deep cough X 3 weeks, gave augmentin from previous prescription that was never used-didn't seem to help symptoms. Cough worse at night. Nasal congestion and rhinorrhea ??? Fever X 3 weeks off and on. Advil this am. Denies headache, wheezing and shortness of breath. ??? Derm Problem wart on finger for over a year, has tried otc products, reddened area around mouth OBJECTIVE: GENERAL:alert, active, no distress SKIN:Erythematous rash around the mouth extending to the nose and paranasal area. Sl waxy scale. 3 warts on left 3rd finger one about 8mm and 2 about 3mm. All treated with AgNO3. HEAD:Normocephalic. No masses, lesions, tenderness or abnormalities EYES:NORMAL - no injection no discharge, no periorbital swelling. NOSE:mildly congested and purulent rhinorrhea EARS:normal OROPHARYNX:mild erythema NECK:supple and no adenopathy LUNGS:clear to auscultation HEART:regular rate and rhythm ABD:Abdomen soft, non-tender. BS normal. No masses, organomegaly EXTR:Extremities normal. No deformities, edema, or skin discoloration. ASSESSMENT: 1.Acute sinusitis 2.Multiple warts PLAN: 1.Levaquin as ordered in Epic. [place] cream for facial rash. 2.Return for repeat wart treatment if all warts aren't gone or substantially smaller in 2-3 weeks. STANT COUNSEL documented in this encounter Plan of Treatment Not on filedocumented as of this encounter Procedures Procedure Name Priority Date/Time Associated Diagnosis Comme nts HC DESTRUCT PREMALIGNANT Routine 10/01/2006 10:02 AM Viral War ts Nos LESION, 2-14 ASSISTANT COUNSEL documented in this encounter Visit Diagnoses Diagnosis Viral warts, unspecified Acute sinusitis, unspecified Other seborrheic dermatitis documented in this encounter Care Teams Document Examiner Relationship Specialty Start Date End Date Mariely Osuna MD PCP - General 06/26/04 09/25/12 [facility] [address] [facility] [address] [place] [address] Ruperto Rey, PhD PCP - Mental Health/Behavioral 12/21/00 XXX NO INFO FOUND XXX Medicine documented as of this encounter
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
--- OUTSIDE RECORDS SUMMARY | 2022-09-25 10:55 | XMS_ITS | Encounter Summary ---
:1990 Author Organization [facility] Address [address] [place] [address] Care Team Providers Name Role Phone Mariely Osuna MD Primary Care Provider Ruperto Rey PhD Unavailable Unavailable Bebeto Faulkner OD Unavailable Dana Powell DPM Unavailable [phone] Encounter Details Date Type Department Care Team Description 04/24/2012 Results Only [facility] Adelfo Gandhi MD in [facility] [address] [place] [address] [place] [address] [place] [address] [phone] (Wo rk) Social History Tobacco Use Types [...] Procedure Name Priority Date/Time Associated Comments Diagnosis CBC WITH PLATELETS & STAT 04/24/2012 10:50 Res ults for this DIFFERENTIAL AM CDT procedure are i n the results section. documented in this encounter Results CBC with platelets differential (04/24/2012 10:50 AM CDT) [facility] Method Time Signature WBC 5.8 4.0 - [facility] 11.0 [facility] 10e9/L RBC Count 5.23 4.4 - 5.9 [facility] 10e12/L [facility] Hemoglobin 16.1 13.3 - [facility] 17.7 g/dL [facility] Hematocrit 46.3 40.0 - [facility] 53.0 % [facility] MCV 89 78 - 100 [facility] fl [facility] MCH 30.8 26.5 - [facility] 33.0 pg [facility] MCHC 34.8 31.5 - [facility] 36.5 g/dL [facility] RDW 12.4 10.0 - [facility] 15.0 % [facility] Platelet Count 210 150 - 450 [facility] 10e9/L [facility] Diff Method Automated [facility] Method [facility] % Neutrophils 66.1 40 - 75 % [facility] % Lymphocytes 23.4 20 - 48 % [facility] % Monocytes 7.5 0 - 12 % [facility] % Eosinophils 1.9 0 - 6 % [facility] % Basophils 0.9 0 - 2 % [facility] % Immature 0.2 0 - 0.4 % [facility] Granulocytes [facility] Absolute 3.8 1.6 - 8.3 [facility] Neutrophil 10e9/L [facility] Absolute 1.4 0.8 - 5.3 [facility] Lymphocytes 10e9/L [facility] Absolute 0.4 0.0 - 1.3 [facility] Monocytes 10e9/L [facility] Absolute 0.1 0.0 - 0.7 [facility] Eosinophils 10e9/L [facility] Absolute 0.1 0.0 - 0.2 [facility] Basophils 10e9/L [facility] Abs Immature 0.0 0 - 0.03 [facility] Granulocytes 10e9/L [facility] Specimen Anatomical Collection Method Collection Time Receive d Time (Source) Location / / Volume Laterality 04/24/2012 10:50 04/24/2012 AM CDT 10:51 AM CDT Adelfo Gandhi MD LAB - BLOOD ORDERABLES Performing Organization Address City/State/ZIP Code Phon e Number [facility] [place] [address] documented in this encounter Visit Diagnoses Not on filedocumented in this encounter Care Teams Hose Suspender Cutter Relationship Specialty Start Date End Date Mariely Osuna MD PCP - General 06/26/04 09/25/12 [facility] [place] [address] [place] [address] Ruperto Rey, PhD PCP - Mental Health/Behavioral 12/21/00 XXX NO INFO FOUND XXX Medicine Bebeto Faulkner, OD PCP - Ophthalmology 10/21/07 Dana Powell, PCP - Podiatry 02/16/08 DPM [facility] [address] [place] [address] documented as of this encounter
--- OUTSIDE RECORDS SUMMARY | 2022-09-25 10:55 | XMS_ITS | Encounter Summary ---
:1990 Author Organization [facility] Address [address] [place] [address] Care Team Providers Name Role Phone Mariely Osuna MD Primary Care Provider Ruperto Rey PhD Unavailable Unavailable Bebeto Faulkner OD Unavailable Dana Powell DPM Unavailable [phone] Reason for Visit Reason Comments Throat Problem Encounter Details Date Type Department Care Team Description 05/21/2011 Office Visit [facility] Mariely Osuna, Stre ptococcal sore throat; System in [place] Acute pharyngitis Pediatrics [facility] [address] [place], [place] [address] [address] [place] [phone] Social History Tobacco Use Types Packs/Day Years [...] - Inhaled Oxygen Concentration - - Weight 91.2 kg (201 lb) 05/21/2011 1:45 PM CDT Height 177.8 cm (5' 10) 05/21/2011 1:45 PM CDT Body Mass Index 28.84 05/21/2011 1:45 PM CDT Body Mass Index Percentile 93.90 % 05/21/2011 1:45 PM CD T Growth Chart: CDC (Boys, 2-20 Years) documented in this encounter Progress Notes Mariely Osuna MD - 05/21/2011 2:03 PM CDT Triage notes reviewed and verified. OBJECTIVE: Ht 1.778 m (5' 10) Wt 91.173 kg (201 lb) BMI 28.84 kg/m2 General: Alert, oriented, well hydrated. Skin turgor normal. Eyes: Conjunctivae normal. No discharge. Ears: External ears and canals are normal. TM's translucent with normal luisa landmarks. No erythemaor purulence. THROAT: PHARYNGEAL ERYTHEMA Neck: No significant cervical adenopathy. Chest: Easy respiration. Lungs clear to auscultation. Good air movement bilaterally without rales, wheezes, or rhonchi. Abdomen: soft without tenderness, guarding, mass or organomegaly. Bowel sounds are normal. Skin: No noted rash Lab: SEE ORDERED STREP TEST Assessment: ACUTE PHARYNGITIS, likely viral - URI Plan: 1. SEE ORDERS 2. Symptomatic treatment. See patient instructions 3. Call for overnight throat culture results (if applicable). 4. Return if not improving within 48 to 72 hours or other concerns. Smoking cessation discussed. Olya Hobbs - 05/21/2011 1:48 PM CDT SUBJECTIVE: Sudden onset of sore throat for 8 days. History of fever: Yes Complains of swollen glands: No Complains of swollen tonsils: No Complains of headache: Yes Has John been exposed to household member, daycare or very close contact with someone with strep throat in the past 5 days: NO TRIAGE TEXT: If the patient answers yes to any of the following questions, advise on home remedies or see MD if indicated/desired. Rhinorrhea: No Cough: Yes Hoarseness: Yes Diarrhea: No COMPLICATING [...] Name Priority Date/Time Associated Diagnosis Comme nts RAPID STREP SCREEN Routine 05/21/2011 1:48 PM Streptococcal so re Results for this THROAT SWAB CDT throat procedure are in Acute pharyngitis the result s section. BETA HEMOLYTIC Routine 05/21/2011 1:48 PM Results for this STREP GROUP A CDT procedure are in CULTURE the results section. documented in this encounter Results Beta strep group A culture (05/21/2011 1:48 PM CDT) Component Value Ref Test Analysis Performed At [facility] gist Range Method Time Signature Specimen Throat NARROWS RED Description [facility] Culture Micro No Beta NARROWS RED Streptococcus [facility] isolated Micro Report FINAL 05/23/2011 NARROWS R ED Status [facility] Specimen Anatomical Collection Method Collection Time Receive d Time (Source) Location / / Volume Laterality 05/21/2011 1:48 PM 1 1:53 CDT PM CDT Mariely Osuna MD LAB - MICRO GENERAL ORDERABL ES Performing Organization Address City/State/ZIP Code Phon e Number [facility] [place] [address] RAPID STREP SCREEN (05/21/2011 1:48 PM CDT) Component Value Ref Test Analysis Performed At [facility] ElationEMR Range Method Time Signature Specimen Throat NARROWS RED Description [facility] Rapid Strep A NEGATIVE: No Group A strepto coccal antigen detected by immunoassay, [facility] report. [facility] Micro Report FINAL 05/21/2011 NARROWS R ED Status [facility] Specimen Anatomical Collection Method Collection Time Receive d Time (Source) Location / / Volume Laterality Specimen from 05/21/2011 1:48 PM 05/21/20 11 1:53 throat CDT PM CDT (specimen) Mariely Osuna MD LAB - MICRO GENERAL ORDERABL ES Performing Organization Address City/State/ZIP Code Phon e Number [facility] [address] documented in this encounter Visit Diagnoses Diagnosis Streptococcal sore throat Acute pharyngitis documented in this encounter Care Teams Furnace Charging Machine Operator Relationship Specialty Start Date End Date Mariely Osuna MD PCP - General 06/26/04 09/25/12 [facility] [place] [address] [place] [address] Ruperto Rey, PhD PCP - Mental Health/Behavioral 12/21/00 XXX NO INFO FOUND XXX Medicine Bebeto Faulkner, OD PCP - Ophthalmology 10/21/07 Dana Powell, PCP - Podiatry 02/16/08 DPM [facility] [place] [address] [place] [address] documented as of this encounter
--- OUTSIDE RECORDS SUMMARY | 2022-09-25 10:55 | XMS_ITS | Encounter Summary ---
:1990 Author Organization [facility] Address [address] [place] [address] Care Team Providers Name Role Phone Mariely Osuna MD Primary Care Provider Ruperto Rey PhD Unavailable Unavailable Bebeto Faulkner OD Unavailable Dana Powell DPM Unavailable [phone] Reason for Visit Reason Comments Cough x 3 weeks, some production, hx of bronchitis Encounter Details Date Type Department Care Team Description 03/10/2012 Office Visit [facility] Danitza Dobbs e bronchitis System in [place] SADIE Carroll (Primary Dx) Urgent Care [facility] [address] [place], [place] [address] [place], [place] [id number] Social History Tobacco Use Types Packs/Day Years Used Date Smoking Tobacco: Passive Smoke Exposure - Never Smoker Smokeless Tobacco: Never Alcohol Use Standard Drinks/Week Comments Not Asked 0 (1 standard drink = 0.6 oz pure alcoho l) Sex Assigned at Date Recorded Not on file documented as of this encounter Last Filed Vital Signs Vital Sign Reading Time Taken Comments Blood Pressure 125/69 03/10/2012 1:55 PM CDT Pulse 90 03/10/2012 1:55 PM CDT Temperature 36.9 ??C (98.4 ??F) 03/10/2012 1:55 PM CDT Respiratory Rate - - Oxygen Saturation 100% 03/10/2012 1:55 PM CDT Inhaled Oxygen Concentration - - Weight - - Height - - Body Mass Index - - documented in this encounter Progress Notes Polly Wood DO - 03/11/2012 8:22 PM CDT Addended by: POLLY WOOD on: 03/11/2012 Modules accepted: Orders Danitza Dobbs PA-C - 03/10/2012 3:36 PM CDT SUBJECTIVE: Royal is a 21-year-old male who presents to Urgent Care complaining of a cough. He has had a productive cough for the past 3 weeks. He thinks that he might have bronchitis. The patient does have a little bit of discomfort in his chest with coughing. Has some shortness of breath with coughing as well. No fevers or chills. No other cold symptoms. No headache, lightheadedness or dizziness. No chest pain at rest. He does smoke 1 pack per day. He states that he has tried to quit in the past, but does not really feel the need to currently. Denies any hemoptysis. No pain in his abdomen and no other symptoms. He otherwise has been feeling okay. PAST MEDICAL HISTORY, MEDICATIONS AND ALLERGIES: All as shown in EPIC. ALLERGIES: He is allergic to ZITHROMAX. OBJECTIVE: GENERAL: Royal is a pleasant, 21-year-old male in no acute distress. No respiratory distress. VITAL SIGNS: Vital signs are stable. The patient is afebrile. Oxygen saturation is 100% on room air. SKIN EXAM: Skin is without rashes with normal skin turgor. HEENT: Head is normocephalic, atraumatic. Eyes clear without conjunctival injection. Ears clear bilaterally. Nose is clear. Mucous membranes are moist. Throat is clear. NECK: Without masses. HEART: Regular rate and rhythm. LUNGS: Some expiratory rhonchi throughout, otherwise, clear to auscultation. No wheezes or rales. ASSESSMENT: Bronchitis. PLAN: Prescription for albuterol inhaler. Doxycycline as prescribed in EPIC. He prefers something on the $4 list at [facility] for insurance reasons. Encouraged supportive care measures at home, fluids, rest, ibuprofen and Tylenol for discomfort. Dojw-[id number] Robitussin or Mucinex for cough. I did strongly, strongly, strongly encourage tobacco cessation particularly because he is so young. He did show some interest in this, and his mom states that she will try to help him with this; otherwise, encouraged following up if symptoms persist or worsen or do not resolve in the next couple of weeks. The patient is in agreement with this plan. WICHO Weiss/caesar documented in this encounter Plan of Treatment Not on filedocumented as of this encounter Visit Diagnoses Diagnosis Acute bronchitis - Primary documented in this encounter Care Teams Pattern Gater Relationship Specialty Start Date End Date Mariely Osuna MD PCP - General 06/26/04 09/25/12 [facility] [place] [address] [place] [address] Ruperto Rey, PhD PCP - Mental Health/Behavioral 12/21/00 XXX NO INFO FOUND XXX Medicine Bebeto Faulkner, OD PCP - Ophthalmology 10/21/07 Dana Powell, PCP - Podiatry 02/16/08 DPM [facility] [place] [address] [place] [address] documented as of this encounter
--- OUTSIDE RECORDS SUMMARY | 2022-09-25 10:56 | XMS_ITS | Encounter Summary ---
:1990 Author Organization [facility] Address [address] [place] [address] Care Team Providers Name Role Phone Mariely Osuna MD Primary Care Provider Ruperto Rey PhD Unavailable Unavailable Encounter Details Date Type Department Care Team Description 09/22/2005 [place] Telephone [facility] carissa Pat [place] Iman Manriquez [facility] ADHD [address] [place] [address] [place] [address] [phone] (Wo rk) Social History Tobacco Use Types Packs/Day Years Used Date Smoking Tobacco: Never Comments: no 2nd hand smoke in the house Alcohol Use Standard Drinks/Week Comments Not Asked 0 (1 standard drink = 0.6 oz pure alcoho l) Sex Assigned at Date Recorded Not on file documented as of this encounter Miscellaneous Notes Telephone Encounter - Shefali Lieberman - 09/23/2005 8:55 AM CDT John Gavin [id number] 09-22-05 TELEPHONE CALL: Mother said Royal was seen at [facility] and diagnosed as bipolar. She is wonderingabout his treatment. I recommended that he be seen by a child psychiatrist as I am retiring and would not be around to manage his medications. She will get that report for me. RNS:katya D: 09-22-05 Brennan Pat M.D. T: 09-23-05 documented in this encounter Plan of Treatment Not on filedocumented as of this encounter Visit Diagnoses Not on filedocumented in this encounter Care Teams Card Scraper Relationship Specialty Start Date End Date Mariely Osuna MD PCP - General 06/26/04 09/25/12 [facility] [address] [facility] [address] [place] [address] Ruperto Rey, PhD PCP - Mental Health/Behavioral 12/21/00 XXX NO INFO FOUND XXX Medicine documented as of this encounter
--- OUTSIDE RECORDS SUMMARY | 2022-09-25 10:56 | XMS_ITS | Encounter Summary ---
:1990 Author Organization [facility] Address [address] [place] [address] Care Team Providers Name Role Phone Mariely Osuna MD Primary Care Provider Ruperto Rey PhD Unavailable Unavailable Reason for Visit Reason Comments Flu Shot Encounter Details Date Type Department Care Team Description 10/07/2005 Allied Health/Nurse [facility] in Flu Shot Visit [facility] [address] [place] [address] Social History Tobacco Use Types Packs/Day Years Used Date Smoking Tobacco: Never Comments: no 2nd hand smoke in the house Alcohol Use Standard Drinks/Week Comments Not Asked 0 (1 standard drink = 0.6 oz pure alcoho l) Sex Assigned at Date Recorded Not on file documented as of this encounter Progress Notes Yue Bahena - 10/07/2005 4:31 PM CST This child qualifies for vaccination [place]ought the [place] program because she (choose only one box in descending order):does not have health insurance. INSPECTOR documented in this encounter Nursing Notes 10/07/2005 4:00 PM CST >> YUE BAHENA 10/07/2005 4:31 pm Influenza injection only, no MD visit. Reports no egg allergy and no reaction from injection in past. Discussed vaccine information sheet and that this vaccination may not protect patient from all flu strains. Encouraged patient to call clinic or stop in if questions or concerns develop. Patient verbalized understanding. documented in this encounter Plan of Treatment Not on filedocumented as of this encounter Visit Diagnoses Diagnosis Need for prophylactic vaccination and in oculation against influenza - Primary documented in this encounter Care Teams Career Consultant Relationship Specialty Start Date End Date Mariely Osuna MD PCP - General 06/26/04 09/25/12 [facility] [address] [place] [address] [address] [place] [address] Ruperto Rey, PhD PCP - Mental Health/Behavioral 12/21/00 XXX NO INFO FOUND XXX Medicine documented as of this encounter
--- OUTSIDE RECORDS SUMMARY | 2022-09-25 10:56 | XMS_ITS | Encounter Summary ---
:1990 Author Organization [facility] Address [address] [place] [address] Care Team Providers Name Role Phone Mariely Osuna MD Primary Care Provider Ruperto Rey PhD Unavailable Unavailable Reason for Visit Reason Onset Date Comments Patient Request 05/18/2005 Encounter Details Date Type Department Care Team Description 05/18/2005 Telephone [facility] in [place] Priscila Chavez Patient Request Wing Psychology [address] [facility] [place] [address] [facility] [phone] Social History Tobacco Use Types Packs/Day Years Used Date Smoking Tobacco: Never Comments: no 2nd hand smoke in the house Alcohol Use Standard Drinks/Week Comments Not Asked 0 (1 standard drink = 0.6 oz pure alcoho l) Sex Assigned at Date Recorded Not on file documented as of this encounter Miscellaneous Notes Telephone Encounter - Brennan Pat - 05/18/2005 1:38 PM CDT #30 Telephone Encounter - Priscila Chavez - 05/18/2005 1:20 PM CDT Penny called to request an RX for Royal. He is on Concerta 54 mg.She moved and did not give us her new address and he is out of meds. She will picking machine operator helper.Thanks. documented in this encounter Plan of Treatment Not on filedocumented as of this encounter Visit Diagnoses Not on filedocumented in this encounter Care Teams Helper Driver Relationship Specialty Start Date End Date Mariely Osuna MD PCP - General 06/26/04 09/25/12 [facility] [place] [address] [facility] [address] [place] [address] Ruperto Rey, PhD PCP - Mental Health/Behavioral 12/21/00 XXX NO INFO FOUND XXX Medicine documented as of this encounter
--- OUTSIDE RECORDS SUMMARY | 2022-09-25 10:56 | XMS_ITS | Encounter Summary ---
:1990 Author Organization [facility] Address [address] [place] [address] Care Team Providers Name Role Phone Mariely Osuna MD Primary Care Provider Ruperto Rey PhD Unavailable Unavailable Encounter Details Date Type Department Care Team Description 02/11/2006 Psyche [facility] Margi Wheatley BIPOLAR - MOST RECENT System in [place] MARGI WHEATLEY [facility] EPISODE UNSPECIFIED Psychology [address] [facility] (Primary Dx) [address] [facility] [address] [place] [address] [place] [address] [phone] (Wo rk) Social History Tobacco Use Types Packs/Day Years Used Date Smoking Tobacco: Never Comments: no 2nd hand smoke in the house Alcohol Use Standard Drinks/Week Comments Not Asked 0 (1 standard drink = 0.6 oz pure alcoho l) Sex Assigned at Date Recorded Not on file documented as of this encounter Progress Notes Margi Wheatley - 02/15/2006 10:09 AM FIRE EXTINGUISHER REPAIRER INSPECTOR CASE NOTE 45-50 minute session. PRESENTING PROBLEM: Royal returns for ongoing therapy with a diagnosis of Pediatric Bipolar. There is minimal change in problems. Royal continues to be out of school. There is a court hearing next week. CURRENT ISSUES: This session focused on continued exploration of Royal's thinking patterns and establishment of relationship. Royal is comfortable with giving information during play therapy time primarily through the use of the Un-Game. He shares information about his likes and dislikes including snowmobiling. He also shares that he and his friend Alicia have begun to speak again. INTERVENTIONS/COMPLIANCE: Royal reports that he does feel bad about misbehaving and wishes that he had not misbehaved in school. He also indicates that he has seen his doctor recently and that medications have increased. He is not able to give other information about that. ASSESSMENT / PLAN: Continue play therapy approach as this seems to be the most workable with this young man. He continues to have some significant difficulty in relating one-to-one, although he seems to enjoy the attention received during therapy sessions. This therapist will need to speak with his mother with regard to her perceptions of Royal's behavior and expectations for return to school. See in two weeks. Margi Wheatley FOLLOW UP SPECIALISTNEEMA ORLANDO/katya cc: EXTINGUISHER REPAIRER INSPECTOR documented in this encounter Plan of Treatment Not on filedocumented as of this encounter Visit Diagnoses Diagnosis Bipolar I disorder, most recent episode (or current) unspecified - Primary documented in this encounter Care Teams Feeder Worker Power Unit Operator Relationship Specialty Start Date End Date Mariely Osuna MD PCP - General 06/26/04 09/25/12 [facility] [place] [address] [facility] [address] [place] [address] Ruperto Rey, PhD PCP - Mental Health/Behavioral 12/21/00 XXX NO INFO FOUND XXX Medicine documented as of this encounter
--- OUTSIDE RECORDS SUMMARY | 2022-09-25 10:56 | XMS_ITS | Encounter Summary ---
:1990 Author Organization [facility] Address [address] [place] [address] Care Team Providers Name Role Phone Mariely Osuna MD Primary Care Provider Ruperto Rey PhD Unavailable Unavailable Encounter Details Date Type Department Care Team Description 01/21/[address] [facility] Health Margi Wheatley BIPOLAR - MOST RECENT System in [place] MARGI WHEATLEY [facility] EPISODE UNSPECIFIED Psychology [address] [facility] (Primary Dx) [address] [facility] [address] [place] [address] [place] [address] [phone] (Wo rk) Social History Tobacco Use Types Packs/Day Years Used Date Smoking Tobacco: Never Comments: no 2nd hand smoke in the house Alcohol Use Standard Drinks/Week Comments Not Asked 0 (1 standard drink = 0.6 oz pure alcoho l) Sex Assigned at Date Recorded Not on file documented as of this encounter Progress Notes Margi Wheatley - 01/27/2006 9:44 AM BRADDISHER CASE NOTE 45-50 minute session. PRESENTING PROBLEM: Royal returns for ongoing therapy for a diagnosis of Bipolar Disorder. Royal indicates that there has been no change in his behavior or moods. Royal is seen individually in this session. CURRENT ISSUES: Royal does share with this therapist that his one friend who he is very much interested in has text messaged him that she no longer wants to be his friend. He did share with this therapist a number of text messages that he received. Those messages were demeaning in nature with regard to calling him names. When feelings were explored more in depth with Royal he was not able to identify any feelings that he had towards this incident of his friend no longer caring to be around him. INTERVENTIONS/COMPLIANCE: Royal continues to not be in school. He continues to have behavioral difficulty at home. This session explored and continued to utilize relationship building. Royal was able to play the un-game in a more appropriate manner. In addition, he did share a concern with this therapist with regard to friendships. In this session also the subjective units of disturbance scale was explained to Royal and he was given a sheet on that technique. In addition, the concept of clear thinking versus dark thinking was utilized to explore the behavioral acting out that in the past he has demonstrated. Royal agreed to utilize the sheets given and he is to return those if possible to continue to review. OBSERVATIONS: Continued pressurized speech is noticed. Royal is somewhat guarded in his presentation. He is taking psychotropic medication. No suicidal ideation was noted. ASSESSMENT / PLAN: Continue to establish a working relationship while at the same time using behavioral methods to encourage appropriate interactions. See next time in approximately 1 to 2 weeks. Margi Wheatley, BASIC ACOUSTIC ANALYST DARION/robinsons cc: DISHER documented in this encounter Plan of Treatment Not on filedocumented as of this encounter Visit Diagnoses Diagnosis Bipolar I disorder, most recent episode (or current) unspecified - Primary documented in this encounter Care Teams Sports Medicine Coordinator Relationship Specialty Start Date End Date Mariely Osuna MD PCP - General 06/26/04 09/25/12 [facility] [address] [facility] [address] [place] [address] Ruperto Rey, PhD PCP - Mental Health/Behavioral 12/21/00 XXX NO INFO FOUND XXX Medicine documented as of this encounter
--- OUTSIDE RECORDS SUMMARY | 2022-09-25 10:56 | XMS_ITS | Encounter Summary ---
:1990 Author Organization [place] Address [address] [place] [address] Care Team Providers Name Role Phone Mariely Osuna MD Primary Care Provider Ruperto Rey PhD Unavailable Unavailable Encounter Details Date Type Department Care Team Description 02/24/2006 Ps[facility] Margi Wheatley BIPOLAR - MOST RECENT System in [place] MARGI WHEATLEY [facility] EPISODE UNSPECIFIED Psychology [address] [facility] (Primary Dx) [address] [facility] [address] [place] [address] [place] [address] [phone] (Wo rk) Social History Tobacco Use Types Packs/Day Years Used Date Smoking Tobacco: Never Comments: no 2nd hand smoke in the house Alcohol Use Standard Drinks/Week Comments Not Asked 0 (1 standard drink = 0.6 oz pure alcoho l) Sex Assigned at Date Recorded Not on file documented as of this encounter Progress Notes Margi Wheatley - 02/25/2006 8:51 AM RESOURCE DEVELOPMENT DIRECTOR CASE NOTE 45-50 minute session. PRESENTING PROBLEM: This session is regarding Royal. The person present is his mother. She indicates that Royal continues to have ongoing difficulties as a result of his diagnosis of Bipolar Disorder. The reader is referred to intake on history of Royal's difficulty. CURRENT ISSUES: Royal continues to not attend school. This session focused on the mother providing updates with regard to school and legal involvement and psychiatric involvement. INTERVENTIONS/COMPLIANCE: Currently Royal is continuing to take his medication. There was some concern with regard to Trileptal and Risperdal due to increased weight gain. The psychiatrist along with this therapist would have some concern with regard to discontinuing any of those medications at this point due to the intensity and frequency of Royal's difficulties. In addition, this therapist spoke with the mother with regard to the termite control servicer nature of Royal's difficulty and the lack of progress or slow progress that is to be expected given Royal's termite control servicer problems. Mother is aware of this. She indicates that this therapist has been the first one that Royal is wanting and willing to interact with. Therefore this therapist will continue to encourage Royal to attend with the goal of establishing a relationship in order to be able to problem solve and use an educational approach to reducing the intensity and frequency of acting out. OBSERVATIONS: Royal continues to take psychotropic medication. There is some concern with the side effect of weight gain. ASSESSMENT / PLAN: This therapist will continue to see Royal individually. The mother will get reports from school that will give a better idea of his intellectual ability. Also, testing that was done recently for the courts and psychiatric evaluation. He is scheduled for a court date in March. See child next time. Margi Wheatley, CONCESSION STAND ATTENDANT LKS/dks cc: URCE DEVELOPMENT DIRECTOR documented in this encounter Plan of Treatment Not on filedocumented as of this encounter Visit Diagnoses Diagnosis Bipolar I disorder, most recent episode (or current) unspecified - Primary documented in this encounter Care Teams Qc Manager Relationship Specialty Start Date End Date Mariely Osuna MD PCP - General 06/26/04 09/25/12 [facility] [address] [facility] [address] [place] [address] Ruperto Rey, PhD PCP - Mental Health/Behavioral 12/21/00 XXX NO INFO FOUND XXX Medicine documented as of this encounter
--- OUTSIDE RECORDS SUMMARY | 2022-09-25 10:56 | XMS_ITS | Encounter Summary ---
:1990 Author Organization [place] Address [address] [place] [address] Care Team Providers Name Role Phone Mariely Osuna MD Primary Care Provider Ruperto Rey PhD Unavailable Unavailable Encounter Details Date Type Department Care Team Description 05/12/2005 Office Visit [facility] Ruperto Sheikh MD STREP SORE THROAT System in [facility] (Primary Dx) Urgent Care [address] [place] [address] [phone] Social History Tobacco Use Types Packs/Day Years Used Date Smoking Tobacco: Never Comments: no 2nd hand smoke in the house Alcohol Use Standard Drinks/Week Comments Not Asked 0 (1 standard drink = 0.6 oz pure alcoho l) Sex Assigned at Date Recorded Not on file documented as of this encounter Progress Notes Ruperto Sheikh MD - 05/15/2005 8:09 AM CDT S: John is a 14 year old male presenting presenting with a moderate sore throat for 2 days. Described as discomfort in the posterior pharynx and pain with swallowing. Associated with congestion. Other than noted above, all other pertinant system review is unremarkable. O: Vitals: as charted General: Patient is well nourished, alert and oriented in no acute distress. Normal mood and affect.Appropiate judgement and insight. Ears: normal tympanic membranes and extra-auditory canals. Throat: bilateral adenopathy, erythematous and normal: no lesions, erythema, adenopthy or exudate Neck: few small anterior cervical nodes Lungs: normal respiratory effort. Clear to auscultation and percussion throughout. Cardiac: normal S1 and S2 without any murmur, gallops or rubs. No carotid bruits. No edema or cyanosis. RAPID STREP (no units) Date Value Low High Status 05/12/2005 Final Value: POSITIVE: Group A Streptococcal antigen detected * ] A: Strep pharyngitis P: IM PCN given today Contagious for 24 hours after starting treatment documented in this encounter Nursing Notes 05/12/2005 5:00 PM CDT >> [facility] (YARA) 05/12/2005 5:59 pm Bicillin CR 900/300 given IM in RUQ Gluteus. Pt instructed to wait 15 min for any reactions. documented in this encounter Plan of Treatment Not on filedocumented as of this encounter Visit Diagnoses Diagnosis Streptococcal sore throat - Primary documented in this encounter Care Teams Advanced Analytics Associate Relationship Specialty Start Date End Date Mariely Osuna MD PCP - General 06/26/04 09/25/[address] [place] [address] Ruperto Rey, PhD PCP - Mental Health/Behavioral 12/21/00 XXX NO INFO FOUND XXX Medicine documented as of this encounter
--- OUTSIDE RECORDS SUMMARY | 2022-09-25 10:56 | XMS_ITS | Encounter Summary ---
:1990 Author Organization [facility] Address [address] [place] [address] Care Team Providers Name Role Phone Mariely Osuna MD Primary Care Provider Ruperto Rey PhD Unavailable Unavailable Encounter Details Date Type Department Care Team Description 01/07/2006 Psyche [facility] Margi Wheatley BIPOLAR - MOST RECENT System in [place] MARGI WHEATLEY [facility] EPISODE UNSPECIFIED Psychology [address] [facility] (Primary Dx) [address] [facility] [address] [place] [address] [place] [address] [phone] (Wo rk) Social History Tobacco Use Types Packs/Day Years Used Date Smoking Tobacco: Never Comments: no 2nd hand smoke in the house Alcohol Use Standard Drinks/Week Comments Not Asked 0 (1 standard drink = 0.6 oz pure alcoho l) Sex Assigned at Date Recorded Not on file documented as of this encounter Progress Notes Margi Wheatley - 01/11/2006 2:01 PM HUB ASSOCIATE INITIAL ASSESSMENT: 45 - 50 minute session. Royal was [facility] the [facility] by his mother who accompanied him at the initial interview. Information was obtained both from his mother and from Royal. PRESENTING PROBLEM: The precipitating event recently was an incident at school where Royal did not manage his behavior effectively. He threatened to bring a gun or kill someone. This resulted in a trip to the Emergency Room here in [place]. From there he went to [facility] for an evaluation as to whether or not he needed to be hospitalized. [facility] did release Royal to his mother. There is a court hearing this Wednesday. Dr. Connell from [place] did testing with Royal in his home on Wednesday night. According to the mother Royal has a longstanding history of mental health concerns. His previous diagnosis was Attention Deficit Hyperactivity. Currently he is being seen by Dr. Jimenez (sp?), a psychiatrist in [place] who now has diagnosed Royal with Bipolar Childhood Disorder. This diagnosis occurred in July. Manifestation of this bipolar difficulty is that Royal has significant difficulty controlling his emotions with an example being the above incident at school. According to the mother when Royal is angry he often blurts out inappropriate things such as swear words or threats. He has been known to say I'm going to kill you or I hate you. He, according to his mother, has never been physically violent, but when he is angry there is little that can be done to de-escalate him. He at home does go to his bedroom with an escort by his mother. When he calms down then the mother is able to talk to him. MENTAL STATUS EXAMINATION: APPEARANCE: Royal presented in an appropriate, but casual attire. ATTITUDE: Guarded and passive. MOTOR ACTIVITY: Calm. Some difficulty with eye contact. AFFECT: Flat. SPEECH: Soft. THOUGHT CONTENT: Intact. THOUGHT PROCESS: Normal. SELF PERCEPTION: No impairment noted. ORIENTATION: Fully oriented. MEMORY: Intact, but evasive. INSIGHT: Poor. JUDGMENT: Poor. PERSONAL/FAMILY/SOCIAL: Royal lives with his mother and two brothers; Adelfo age 17 and Portillo age 11. In the household also is Christofer age 37, mother's paramour. Mother is also in the home. According to Penny she has been diagnosed with Attention Deficit Hyperactivity approximately two years ago. She currently is on no medications. In addition, there is a half sister Junie age 18 who lives in [place]. Royal's biological father is . He approximately ten years ago when Royal was [age]. The dad committed suicide. Penny indicates that Royal can be a loving child and has a good sense of humor, but can be very difficult to manage his emotions when he becomes upset. This, of course, causes strain in the relationship among family members, particularly between Yassine the 11 year old and Royal. There is a significant history of mental illness in the family. The maternal grandmother has dyslexia. Two of Penny's sons have learning disabilities. The paternal grandmother also had a mental illness as did the father. There is also alcoholism in the family. According to Penny Royal's father was alcoholic, as well as both grandfathers and the mother's brother is alcoholic. SCHOOL OR EMPLOYMENT: Royal is in special education for all classes except for one. He struggles in the regular education class with a large class of 30 students. In his two special ed classes one class has 15 and one class has 5. He does have an individual education plan and meets the criteria for special education. He also does meet with a primary school teacher librarian one time per week. He does have a field nurse case manager with the [employer]. PSYCHIATRIC HISTORY / SUMMARY OF TREATMENT: Royal [facility] [place] and is seen monthly by the psychiatrist. He also is currently being tested by a psychologist out of [place]. He has had significant difficulties medically in terms of mental illness. GENERAL HEALTH: In addition, the mother indicated that as a young child he did have head concussions that are now being questioned as to the influence that those may be having on his behavior. MEDICATIONS: Currently he is on Concerta 54 mg, Trazodone 50 mg, Risperdal 0.25 mg two times a day and Trileptal 600 mg. CONFIDENTIALITY STATEMENT / INFORMED CONSENT: [facility] Confidentiality Statement/Informed consent form was signed and will be reviewed by the end of the second session. SUICIDE ASSESSMENT: Suicidal ideation is denied, although in the past mother indicates that he does say things that indicate that he would hurt himself. This occurred approximately two years ago. There are no attempts and no gestures in the history. RISK FOR VIOLENCE: He again threatens to hurt people. There has been no acting out of those kinds of statements. DEGREE OF IMPAIRMENT: Marriage/Relationship/Family: Marked impairment. Friendships/Peers: Extreme impairment. Job/School/Performance: Extreme impairment. Currently he is on home bound. Financial Situation: Mild impairment. Physical Health: Moderate impairment. Hobbies/Interests: Mild impairment. Activities of Daily Living: Moderate impairment. Sleeping: Mild impairment. DIAGNOSTIC IMPRESSION: [place] I: Bipolar, Unspecified. [place] II: Deferred. [place] III: Deferred. [place] IV: Family and school. [place] V: Current GAF = 50; past year GAF = 53. TREATMENT PLAN / GOALS / RECOMMENDATIONS: This therapist did have the mother sign releases for the school, for the psychiatrist and also for the Department of Human Services in order to better coordinate and assess for appropriateness of ongoing therapy. Royal did agree to come back in individually and the goals that he agreed to work on were to learn to get along with people more effectively and that he would like to be in school so he could see his friends and be able to do math. Therefore, the therapy will focus on prosocial skills in a didactic manner along with support to Royal for increasing those prosocial skills. Mother will be seen for supportive therapy as needed. Margi Wheatley, [facility] VIKIS/dks cc: ASSOCIATE documented in this encounter Plan of Treatment Not on filedocumented as of this encounter Visit Diagnoses Diagnosis Bipolar I disorder, most recent episode (or current) unspecified - Primary documented in this encounter Care Teams Paper Carrier Relationship Specialty Start Date End Date Mariely Osuna MD PCP - General 06/26/04 09/25/12 [facility] [address] [facility] [address] [place] [address] Ruperto Rey, PhD PCP - Mental Health/Behavioral 12/21/00 XXX NO INFO FOUND XXX Medicine documented as of this encounter
--- OUTSIDE RECORDS SUMMARY | 2022-09-25 10:56 | XMS_ITS | Encounter Summary ---
:1990 Author Organization [facility] Address [address] [place] [address] Care Team Providers Name Role Phone Mariely Osuna MD Primary Care Provider Ruperto Rey PhD Unavailable Unavailable Reason for Referral Specialty Diagnoses / Procedures Referred By Contact Refer red To Contact Mariely Osuna MD [facility] [address] [place] [address] Referral ID Status Reason Start Date Expiration Date Visits Requ ested Visits Authorized T OPERATIONS MANAGER Reason for Visit Reason Comments Headache vomiting, last dose of advil 0900, started today, sensitive to light and sound Encounter Details Date Type Department Care Team Description 01/28/2006 Office Visit [facility] Mariely Osuna OTHE R ACUTE SINUSITIS; System in [place] MD HEADACHE; Pediatrics [facility] BIPOLAR - MOST RECENT EPISODE UNSPECIFIE D [address] [facility] [place] [address] [address] [place], [place] [phone] Social History Tobacco Use Types Packs/Day Years [...] - - Temperature 36.1 ??C (97 ??F) 01/28/2006 9:30 AM FLEET OPERATIONS MANAGER Respiratory Rate - - Oxygen Saturation - - Inhaled Oxygen Concentration - - Weight 43.1 kg (95 lb) 01/28/2006 9:30 AM FLEET OPERATIONS MANAGER Height - - Body Mass Index - - documented in this encounter Progress Notes Mariely Osuna MD - 02/04/2006 9:04 AM FLEET OPERATIONS MANAGER CLINIC ENCOUNTER Royal Gavin comes in with his mother with concerns about migraine headache. He spent the night at his sister's last night. Today was complaining of nausea brought to his mother home. He complained of severe frontal headache. His mother gave him one Advil, seemed to be doing okay, about 1/2 hour later gave him the rest of his medications. He vomited within 5 minutes and seemed to have persistent vomiting with significant complaints of headache. He denies sore throat or strep exposure. He has had some noise and light sensitivity. He has had problems with migraine quality headaches in the past. He has had persistent rhinorrhea congestion and occasional cough over the past month. He was treated with a course of amoxicillin without any significant change in his symptoms. His interval history is significant for his brief hospitalization in assessment for out of control behavior at school and he has begun seeing Felicitas Campbell on a weekly basis and he is followed by another physician for his medication management. He recently started the Risperdal and mother is concerned about his weight gain. We discussed the importance of now learning to make appropriate food choices. This had never been an issue for him before when he was on the stimulant medications because of appetite suppression of those medications. I offered a consult to Tracey Galeas, our clinical trials specialist, to review with Royal and his mother appropriate food choices to slow down his rapid weight gain over the previous month. On physical exam, Royal is alert, smiling, laughing, and in no acute discomfort. His conjunctivae are clear. Pupils are equally round and reactive to light. Optic disks are not well seen. He has no apparent photophobia with this maneuver. Tympanic membranes are translucent. Nose is congested. Oropharynx reveals no tonsillar erythema or exudate. Moist mucous membrane. Neck is supple. No significant adenopathy . Chest has good air entry and clear to auscultation. His abdomen is nondistended. Active bowel sounds. He giggles with exam. ASSESSMENT: Possible persist sinusitis with failure to resolve symptoms after previous treatment. We will treat with Augmentin on this occasion. We discussed his headache today as possibly being a migraine equivalent. He may have had some benefit from the Advil in spite of the vomiting. Discussed a trial of Imitrex nasal spray if these symptoms should recur. This may be the onset of a viral illness, which is the community at this time. Mother will observe her further symptoms. Start the Augmentin as prescribed. Call or return if not improving or further concerns. Consult to nutrition entered. Mariely Osuna M.D. MALLY/mary T OPERATIONS MANAGER Mariely Osuna MD - 01/28/2006 11:28 AM CST This office note has been dictated. T OPERATIONS MANAGER documented in this encounter Plan of Treatment Not on filedocumented as of this encounter Visit Diagnoses Diagnosis Other acute sinusitis Headache(784.0) Headache Bipolar I disorder, most recent episode (or current) unspecified documented in this encounter Care Teams Bill Board Poster Relationship Specialty Start Date End Date Mariely Osuna MD PCP - General 06/26/04 09/25/12 [facility] [address] [place] [address] Ruperto Rey, PhD PCP - Mental Health/Behavioral 12/21/00 XXX NO INFO FOUND XXX Medicine documented as of this encounter
--- OUTSIDE RECORDS SUMMARY | 2022-09-25 10:56 | XMS_ITS | Encounter Summary ---
:1990 Author Organization [facility] Address [address] [place] [address] Care Team Providers Name Role Phone Mariely Osuna MD Primary Care Provider Ruperto Rey PhD Unavailable Unavailable Encounter Details Date Type Department Care Team Description 02/04/[address] [facility] Margi Wheatley BIPOLAR - MOST RECENT System in [place] MARGI WHEATLEY [facility] EPISODE UNSPECIFIED Psychology [address] [facility] (Primary Dx) [address] [facility] [address] [place] [address] [place] [address] [phone] (Wo rk) Social History Tobacco Use Types Packs/Day Years Used Date Smoking Tobacco: Never Comments: no 2nd hand smoke in the house Alcohol Use Standard Drinks/Week Comments Not Asked 0 (1 standard drink = 0.6 oz pure alcoho l) Sex Assigned at Date Recorded Not on file documented as of this encounter Progress Notes Margi Wheatley - 02/16/2006 10:06 AM CITY ADMINISTRATOR CASE NOTE 45-50 minute session. PRESENTING PROBLEM: Royal returns for therapy with a diagnosis of bipolar disorder. There is no noted change in affect. He continues to use pressurized speech to the point where it is difficult to understand some of his words. He also continues to not be in school due to behavioral difficulties. CURRENT ISSUES: Royal indicates that he is willing to and wants to play the Un-Game. When given direction to go get the game he finds it difficult to comply with that direction. Cajoling him into compliance was somewhat easy. He did get the game and return it. He does use that game to explore his feelings and share information with the therapist. He plays the game in a way where he answers all the questions rather than sharing information back and forth. INTERVENTIONS/COMPLIANCE: Royal informs this therapist that he has been living with his aunt for a couple of weeks. He states that this is due to his mother doing day care with ten children during the day time at his home. He indicates that his mother has turned his bedroom into a place for the day care children to sleep and that most of his things are now out of the room. He also shares that he has been noncompliant with his home bound teacher. It sounds from this therapist's point of view that he and the moderate needs teacher tend to get into power struggles with Royal becoming passive aggressive. OBSERVATIONS: Royal continues to take his medication. Although it seems to be somewhat helpful, a reevaluation of that medication may be helpful. ASSESSMENT / PLAN: Continue to explore through play therapy and verbal discussion Royal's difficulties maintaining appropriate behavior and stresses in his life. Margi Wheatley, [facility] DARION/katya cc: ADMINISTRATOR documented in this encounter Plan of Treatment Not on filedocumented as of this encounter Visit Diagnoses Diagnosis Bipolar I disorder, most recent episode (or current) unspecified - Primary documented in this encounter Care Teams Business Intelligence Analyst Relationship Specialty Start Date End Date Mariely Osuna MD PCP - General 06/26/04 09/25/12 [facility] [address] [facility] [address] [place] [address] Ruperto Rey, PhD PCP - Mental Health/Behavioral 12/21/00 XXX NO INFO FOUND XXX Medicine documented as of this encounter
--- OUTSIDE RECORDS SUMMARY | 2022-09-25 10:56 | XMS_ITS | Encounter Summary ---
:1990 Author Organization [place] Address [address] [place] [address] Care Team Providers Name Role Phone Mariely Osuna MD Primary Care Provider Ruperto Rey PhD Unavailable Unavailable Reason for Visit Reason Onset Date Comments Patient Request 09/22/2005 Encounter Details Date Type Department Care Team Description 09/22/2005 Telephone [facility] in [place] Rowena Montes Patient Request Wing Psychology [address] [place] [address] [facility] [phone] Social History Tobacco Use Types Packs/Day Years Used Date Smoking Tobacco: Never Comments: no 2nd hand smoke in the house Alcohol Use Standard Drinks/Week Comments Not Asked 0 (1 standard drink = 0.6 oz pure alcoho l) Sex Assigned at Date Recorded Not on file documented as of this encounter Miscellaneous Notes Telephone Encounter - Brennan Pat - 09/22/2005 9:59 AM CDT This encounter has been dictated. Telephone Encounter - Rowena Montes - 09/22/2005 8:36 AM CDT Lilian says that Royal was diagnosed as bipolar yesturday and was wondering if that is something you treat or should she be going to a psychiatrist? documented in this encounter Plan of Treatment Not on filedocumented as of this encounter Visit Diagnoses Not on filedocumented in this encounter Care Teams Supervisor Slitting And Shipping Relationship Specialty Start Date End Date Mariely Osuna MD PCP - General 06/26/04 09/25/12 [facility] Marty [facility] [address] [facility] [address] [place] [address] Ruperto Rey, PhD PCP - Mental Health/Behavioral 12/21/00 XXX NO INFO FOUND XXX Medicine documented as of this encounter
--- OUTSIDE RECORDS SUMMARY | 2022-09-25 10:56 | XMS_ITS | Encounter Summary ---
:1990 Author Organization [place] Address [address] [place] [address] Care Team Providers Name Role Phone Mariely Osuna MD Primary Care Provider Ruperto Rey PhD Unavailable Unavailable Reason for Visit Reason Comments Imm/Inj Encounter Details Date Type Department Care Team Description 07/17/2005 Allied Health/Nurse [facility] in Imm/Inj Visit [facility] [address] [place] [address] Social History Tobacco Use Types Packs/Day [...] Visit Diagnoses Diagnosis Need for prophylactic vaccination with t etanus-diphtheria (Td) - Primary documented in this encounter Care Teams Drilling Contractor Relationship Specialty Start Date End Date Mariely Osuna MD PCP - General 06/26/04 09/25/12 [facility] [address] [place] [address] Ruperto Rey, PhD PCP - Mental Health/Behavioral 12/21/00 XXX NO INFO FOUND XXX Medicine documented as of this encounter
--- OUTSIDE RECORDS SUMMARY | 2022-09-25 10:56 | XMS_ITS | Encounter Summary ---
:1990 Author Organization [place] Address [address] [place] [address] Care Team Providers Name Role Phone Mariely Osuna MD Primary Care Provider Ruperto Rey PhD Unavailable Unavailable Encounter Details Date Type Department Care Team Description 04/01/2006 Psyche [facility] Margi Wheatley BIPOLAR - MOST RECENT System in [place] MARGI WHEATLEY [facility] EPISODE UNSPECIFIED Psychology [address] [facility] (Primary Dx) [address] [facility] [address] [place] [address] [place] [address] [phone] (Wo rk) Social History Tobacco Use Types Packs/Day Years Used Date Smoking Tobacco: Never Comments: no 2nd hand smoke in the house Alcohol Use Standard Drinks/Week Comments Not Asked 0 (1 standard drink = 0.6 oz pure alcoho l) Sex Assigned at Date Recorded Not on file documented as of this encounter Progress Notes Margi Wheatley - 04/05/2006 10:14 AM CDT CASE NOTE 45-50 minute session. PRESENTING PROBLEM: Royal returns for treatment for symptoms of bipolar disorder. He reports no change in symptoms nor behavior. CURRENT ISSUES: Royal indicates in this session that he is tired. He is noticeably less involved in the therapeutic process during this session. He voices a desire to play the Un-Game which is a game to explore feelings and establish relationship. He is unable to successfully follow rules and does not answer questions during the session. INTERVENTIONS/COMPLIANCE: Due to Royal's voiced tiredness and inability to engage in an interactive process this therapist used bibliotherapy during session. The book The Mountain and The Bird was read to Royal. He initially showed no interest, but became quite involved in that book. Following the reading of that book he was able to interact more appropriately. ASSESSMENT / PLAN: Royal does voice some concerns with regard to his relationship with his cousin Obey. He voices interest in a joint session to discuss more appropriate behavior between the two of them. This therapist will consider a joint session should the parents of the children see this as beneficial. See next time in approximately two weeks. Margi Wheatley, [facility] DARION/katya cc: documented in this encounter Plan of Treatment Not on filedocumented as of this encounter Visit Diagnoses Diagnosis Bipolar I disorder, most recent episode (or current) unspecified - Primary documented in this encounter Care Teams Commercial Diver Relationship Specialty Start Date End Date Mariely Osuna MD PCP - General 06/26/04 09/25/12 [facility] Marty Novak [address] [facility] [address] [place] [address] Ruperto Rey, PhD PCP - Mental Health/Behavioral 12/21/00 XXX NO INFO FOUND XXX Medicine documented as of this encounter
--- OUTSIDE RECORDS SUMMARY | 2022-09-25 10:56 | XMS_ITS | Encounter Summary ---
:1990 Author Organization [place] Address [address] [place] [address] Care Team Providers Name Role Phone Mariely Osuna MD Primary Care Provider Ruperto Rey PhD Unavailable Unavailable Reason for Visit Reason Comments URI coughing worse at night, sic k x 6 days Encounter Details Date Type Department Care Team Description 12/28/[address] 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 ING MACHINE OPERATOR Mariely Osuna MD - 12/28/2005 9:30 AM CSTCLINIC ENCOUNTER SUBJECTIVE: John Gavin is in with his mother. He has been sick for at least six days with persistent cough, congestion. He has had intermittent low-grade fevers. Mother does have him on pain medication. She is concerned because several members in her household for day care have been diagnosed with pneumonia. One is hospitalized currently. Royal has had a fairly recent hospitalization for pneumonia in the past two years. He is seeing a psychiatrist through [facility] and has recently started Risperdal and Trileptal as noted on his medication record. OBJECTIVE: On physical exam, he is alert, active. His conjunctivae are clear. His right TM (tympanic membrane) is translucent. His left TM (tympanic membrane) is erythematous, retracted with no mobility. His nose is congested. Oropharynx: No erythema or exudate. Neck is supple. Chest: Easy respirations, good air entry, entirely clear to auscultation. ASSESSMENT: Clinical sinusitis, early left otitis media. No signs for pneumonia on today's exam. PLAN: Amoxicillin is prescribed. However, return if not improving as expected, further concerns. Mariely Osuna M.D. MMCaron/tenzin cc: ING MACHINE OPERATOR documented in this encounter Plan of Treatment Not on filedocumented as of this encounter Visit Diagnoses Diagnosis Other acute sinusitis Unspecified otitis media documented in this encounter Care Teams Marketing Content Manager Relationship Specialty Start Date End Date Mariely Osuna MD PCP - General 06/26/04 09/25/12 [facility] [address] [place] [address] [address] [place] [address] Ruperto Rey, PhD PCP - Mental Health/Behavioral 12/21/00 XXX NO INFO FOUND XXX Medicine documented as of this encounter
--- OUTSIDE RECORDS SUMMARY | 2022-09-25 10:56 | XMS_ITS | Encounter Summary ---
:1990 Author Organization [place] Address [address] [place] [address] Care Team Providers Name Role Phone Mariely Osuna MD Primary Care Provider Ruperto Rey PhD Unavailable Unavailable Encounter Details Date Type Department Care Team Description 02/25/2006 Psyche [facility] Margi Wheatley BIPOLAR - MOST RECENT System in [place] MARGI WHEATLEY [facility] EPISODE UNSPECIFIED Psychology [address] [facility] (Primary Dx) [address] [facility] [address] [place] [address] [place] [address] [phone] (Wo rk) Social History Tobacco Use Types Packs/Day Years Used Date Smoking Tobacco: Never Comments: no 2nd hand smoke in the house Alcohol Use Standard Drinks/Week Comments Not Asked 0 (1 standard drink = 0.6 oz pure alcoho l) Sex Assigned at Date Recorded Not on file documented as of this encounter Progress Notes Margi Wheatley - 03/01/2006 11:41 AM CDT CASE NOTE 45-50 minute session. PRESENTING PROBLEM: Royal returns for therapy with an ongoing diagnosis of Pediatric Bipolar Disorder. Royal continues to present with impulsive behaviors and pressurized speech. His mother notes little, if any, change in behavior. CURRENT ISSUES: Royal continues to not be in school. He continues to report wanting to feel lazy and not doing anything. He has less interest in returning to school. He is able to share in session a little bit about his aunt and the relationship that he has with her. This seems to be a positive experience for him. INTERVENTIONS/COMPLIANCE: The use of the Un-Game was utilized in session. He continues to enjoy that activity and is engaged with this therapist more easily. ASSESSMENT / PLAN: Continue to take opportunities to improve coping skills as client is able to process options. See in one to two weeks. Margi Wheatley, LEARNING SPECIALIST DARION/katya cc: documented in this encounter Plan of Treatment Not on filedocumented as of this encounter Visit Diagnoses Diagnosis Bipolar I disorder, most recent episode (or current) unspecified - Primary documented in this encounter Care Teams Director Of Cloud Services Relationship Specialty Start Date End Date Mariely Osuna MD PCP - General 06/26/04 09/25/12 [facility] [address] [place] [address] [address] [place] [address] Ruperto Rey, PhD PCP - Mental Health/Behavioral 12/21/00 XXX NO INFO FOUND XXX Medicine documented as of this encounter
--- OUTSIDE RECORDS SUMMARY | 2022-09-25 10:56 | XMS_ITS | Encounter Summary ---
:1990 Author Organization [place] Address [address] [place] [address] Care Team Providers Name Role Phone Mariely Osuna MD Primary Care Provider Ruperto Rey PhD Unavailable Unavailable Reason for Visit Reason Onset Date Comments Refill Request 03/18/2006 imitrex Encounter Details Date Type Department Care Team Description 03/18/2006 Refill [facility] Yue Joseph Refill Request (imitrex) in [place] [facility] [address] [place] [address] Social History Tobacco Use Types Packs/Day Years Used Date Smoking Tobacco: Never Comments: no 2nd hand smoke in the house Alcohol Use Standard Drinks/Week Comments Not Asked 0 (1 standard drink = 0.6 oz pure alcoho l) Sex Assigned at Date Recorded Not on file documented as of this encounter Miscellaneous Notes Telephone Encounter - Yue Joseph - 03/18/2006 3:04 PM CDT Faxed request from pharmacy,will be directly faxed back if approved. documented in this encounter Plan of Treatment Not on filedocumented as of this encounter Visit Diagnoses Not on filedocumented in this encounter Care Teams Roast Master Relationship Specialty Start Date End Date Mariely Osuna MD PCP - General 06/26/04 09/25/12 [facility] [address] [place] [address] Ruperto Rey, PhD PCP - Mental Health/Behavioral 12/21/00 XXX NO INFO FOUND XXX Medicine documented as of this encounter
--- OUTSIDE RECORDS SUMMARY | 2022-09-25 10:56 | XMS_ITS | Encounter Summary ---
:1990 Author Organization [place] Address [address] [place] [address] Care Team Providers Name Role Phone Mariely Osuna MD Primary Care Provider Ruperto Rey PhD Unavailable Unavailable Encounter Details Date Type Department Care Team Description 03/16/2006 Psyche [facility] Health Margi Wheatley BIPOLAR - MOST RECENT System in [place] MARGI WHEATLEY [facility] EPISODE UNSPECIFIED Psychology [address] [facility] (Primary Dx) [address] [facility] [address] [place] [address] [place] [address] [phone] (Wo rk) Social History Tobacco Use Types Packs/Day Years Used Date Smoking Tobacco: Never Comments: no 2nd hand smoke in the house Alcohol Use Standard Drinks/Week Comments Not Asked 0 (1 standard drink = 0.6 oz pure alcoho l) Sex Assigned at Date Recorded Not on file documented as of this encounter Progress Notes Margi Wheatley - 03/18/2006 2:17 PM CDT CASE NOTE 45-50 minute session. PRESENTING PROBLEM: Royal returns for ongoing therapy for a diagnosis of bipolar disorder. He continues to be impulsive and pressurized speech. CURRENT ISSUES: Royal shares that he is back in school and that his behavior is acceptable within limits. He also shares that he has missed coming to see this therapist and walked here last to discover that he had not been scheduled. We talk about him and I enjoying each other's company and he seems to be pleased. INTERVENTIONS/COMPLIANCE: Royal requests playing the Un-Game. He is cooperative in the game and seems to be able to take turns more readily. ASSESSMENT / PLAN: Continue to improve relationship skills through the use of play therapy. Continue to encourage prosocial skills. See in approximately two weeks. DANIEL Melendez/katya cc: Margi Wheatley - 03/16/2006 1:21 PM CDT Addended by: MARGI WHEATLEY on: 03/16/2006 1:21:00 PM Modules accepted: Level of Service documented in this encounter Plan of Treatment Not on filedocumented as of this encounter Visit Diagnoses Diagnosis Bipolar I disorder, most recent episode (or current) unspecified - Primary documented in this encounter Care Teams Casket Upholsterer Relationship Specialty Start Date End Date Mariely Osuna MD PCP - General 06/26/04 09/25/12 [facility] [address] [place] [address] Ruperto Rey, PhD PCP - Mental Health/Behavioral 12/21/00 XXX NO INFO FOUND XXX Medicine documented as of this encounter
--- OUTSIDE RECORDS SUMMARY | 2022-09-25 10:56 | XMS_ITS | Encounter Summary ---
:1990 Author Organization [place] Address [address] [place] [address] Care Team Providers Name Role Phone Mariely Osuna MD Primary Care Provider Ruperto Rey PhD Unavailable Unavailable Encounter Details Date Type Department Care Team Description 03/21/2006 Hospital Laboratory [facility] Viet Aguirre System in [facility] [address] [place] [address] [place] [address] [address] [place], [place] [address] (Wo rk) Social History [...] Diagnosis Comme nts HCL BETA STREP Routine 03/21/2006 3:41 PM Results for this CONFIRM CDT procedure are i n the results section. documented in this encounter Results BETA STREP CONFIRM (03/21/2006 3:41 PM CDT) Component Value Ref Test Analysis Performed At [facility] Range Method Time Signature Specimen Throat [facility] RED Description [facility] Culture Micro No Beta [facility] Streptococcus [facility] isolated Report status FINAL [id number] [facility] RE D [facility] Specimen Anatomical Collection Method Collection Time Receive d Time (Source) Location / / Volume Laterality 03/21/2006 3:41 PM 6 3:49 CDT PM CDT Viet [place] MD LABORATORY Performing Organization Address City/State/ZIP Code Phon e Number [facility] [place] [facility] [address] documented in this encounter Visit Diagnoses Not on filedocumented in this encounter Care Teams Plating Inspector Relationship Specialty Start Date End Date Mariely Osuna MD PCP - General 06/26/04 09/25/12 [facility] [address] [facility] [address] [place] [address] Ruperto Rey, PhD PCP - Mental Health/Behavioral 12/21/00 XXX NO INFO FOUND XXX Medicine documented as of this encounter
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
--- OUTSIDE RECORDS SUMMARY | 2022-09-25 10:56 | XMS_ITS | Encounter Summary ---
:1990 Author Organization [place] Address [address] [place] [address] Care Team Providers Name Role Phone Mariely Osuna MD Primary Care Provider Ruperto Rey PhD Unavailable Unavailable Encounter Details Date Type Department Care Team Description 01/14/2006 Psyche [facility] Margi Wheatley BIPOLAR - MOST RECENT System in [place] MARGI WHEATLEY [facility] EPISODE UNSPECIFIED Psychology [address] [facility] (Primary Dx) [address] [facility] [address] [place] [address] [place] [address] [phone] (Wo rk) Social History Tobacco Use Types Packs/Day Years Used Date Smoking Tobacco: Never Comments: no 2nd hand smoke in the house Alcohol Use Standard Drinks/Week Comments Not Asked 0 (1 standard drink = 0.6 oz pure alcoho l) Sex Assigned at Date Recorded Not on file documented as of this encounter Progress Notes Margi Wheatley - 01/18/2006 8:37 AM PIZZAMAKER CASE NOTE 45-50 minute session. PRESENTING PROBLEM: Royal returns for ongoing therapy with a diagnosis of Bipolar. This is his second session. There is no noted change in behavior or emotions. CURRENT ISSUES: Royal is continuing on home bound services from the school. He continues with poor impulse control. It is noted that he had some pressurized speech. He also during the session tended to over focus on his friend Alicia relating most observations and comments back to her. INTERVENTIONS/COMPLIANCE: The primary focus of this session was an attempt to establish a therapeutic relationship. This was done using the Un-Game. Royal was able to play the game. However, he commented that he could not read the questions and had this therapist read the questions to him. Again, speech was difficult to understand. OBSERVATIONS: Noted tenseness with poor speech. Currently taking psychotropic meds. No suicidal ideation noted. ASSESSMENT / PLAN: Continue to establish a relationship and attempt to use rationally motive therapy. This was attempted somewhat in this session in that the stop and think concept was utilized. This therapist did give him a visual stop sign with those two concepts on the stop sign for him to utilize as a reminder to help monitor his behavioral outbursts. See in two weeks. Margi Wheatley, MANAGER OF ALLIED HEALTH SERVICES VIKIS/katya cc: AMAKER documented in this encounter Plan of Treatment Not on filedocumented as of this encounter Visit Diagnoses Diagnosis Bipolar I disorder, most recent episode (or current) unspecified - Primary documented in this encounter Care Teams Nuclear Powerplant Supervisor Relationship Specialty Start Date End Date Mariely Osuna MD PCP - General 06/26/04 09/25/12 [facility] [address] [facility] [address] [place] [address] Ruperto Rey, PhD PCP - Mental Health/Behavioral 12/21/00 XXX NO INFO FOUND XXX Medicine documented as of this encounter
--- OUTSIDE RECORDS SUMMARY | 2022-09-25 10:56 | XMS_ITS | Encounter Summary ---
:1990 Author Organization [place] Address [address] [place] [address] Care Team Providers Name Role Phone Mariely Osuna MD Primary Care Provider Ruperto Rey PhD Unavailable Unavailable Reason for Visit Reason Onset Date Comments Patient Request 09/24/2005 Encounter Details Date Type Department Care Team Description 09/24/2005 Telephone [facility] in [place] Rowena Montes Patient Request [facility] [address] [place] [address] [facility] [phone] Social History Tobacco Use Types Packs/Day Years Used Date Smoking Tobacco: Never Comments: no 2nd hand smoke in the house Alcohol Use Standard Drinks/Week Comments Not Asked 0 (1 standard drink = 0.6 oz pure alcoho l) Sex Assigned at Date Recorded Not on file documented as of this encounter Miscellaneous Notes Telephone Encounter - Brennan Pat - 09/24/2005 11:32 AM CDT needs to see psychiatrist Telephone Encounter - Rowena Montes - 09/24/2005 10:37 AM CDT Pam aclled and said she was going tohave Royal see a psychiatrist but until she can was wondering if she could see you . They are having a lot of problems at school. Wants to wait until for [place] when she has insurance. documented in this encounter Plan of Treatment Not on filedocumented as of this encounter Visit Diagnoses Not on filedocumented in this encounter Care Teams Insurance Sales Producer Relationship Specialty Start Date End Date Mariely Osuna MD PCP - General 06/26/04 09/25/12 [facility] [place] [address] [facility] [address] [place] [address] Ruperto Rey, PhD PCP - Mental Health/Behavioral 12/21/00 XXX NO INFO FOUND XXX Medicine documented as of this encounter
--- OUTSIDE RECORDS SUMMARY | 2022-09-25 10:57 | XMS_ITS | Encounter Summary ---
:1990 Author Organization [place] Address [address] [place] [address] Care Team Providers Name Role Phone Cora Holliday PA-C Primary Care Provider [phone] Ruperto Rey PhD Unavailable Unavailable Encounter Details Date Type Department Care Team Description 06/17/2004 Hospital Laboratory [facility] Lobo Ivy MD System in [facility] [address] [facility] [address] [facility] [address] [place] [address] [address] [place] [address] [phone] (Wo rk) Social History Tobacco Use Types [...] Priority Date/Time Associated Diagnosis Comme nts HCL GLUCOSE, CSF Routine 06/17/2004 2:30 PM Resul ts for this CDT procedure are i n the results section. ARBOVIRUS PANEL, Routine 06/17/2004 1:34 PM Resul ts for this IGM CDT procedure are i n the results section. documented in this encounter Results (ABNORMAL) GLUCOSE, CSF (06/17/2004 2:30 PM CDT) athologist Signature Glucose CSF 75 (H) 40 - 70 [place] mg/dL [facility] Comment: CSF glucose concentrations are about 60 percent of normal plasma glucose. Specimen Anatomical Collection Method Collection Time Receive d Time (Source) Location / / Volume Laterality 06/17/2004 2:30 PM 4 2:40 CDT PM CDT Cory Ivy MD LABORATORY Performing Organization Address City/State/ZIP Code Phon e Number [facility] [address] ARBOVIRUS PANEL, IGM (06/17/2004 1:34 PM CDT) [facility] Method Time Signature [place] < 1:16 [place] Enceph M (Note) [facility] REFERENCE INTERVAL: [place] Encephalitis Antibody, ? IgM by IFA Less than 1:16 ....... No IgM antibody detected. 1:16 or greater ...... IgM antibody detected, ?which may suggest curren t ?or recent infection. This test is intended to be used as a semi-quantitative means of detecting [place] Encephalitis Group virus- specific IgM in serum samples in which there is a clinical suspicion of [place] Encephalitis Group virus infection. This test should not be used solely for quantitative purposes, nor should the results be used without correlation to clinical history or other data. [place] virus is related within the [place] Encephalitis Group and generally is reactive with antibody to other viruses within this group. The above 04 tests were performed at: [facility], [address] [place] [id number] [place] < 1:16 [place] Encep M (Note) [facility] REFERENCE INTERVAL: EASTERN Equine Encephalitis Antibody, ? IgM by IFA Less than 1:16 ....... No IgM antibody detected. 1:16 or greater ...... IgM antibody detected, ?which may suggest curren t ?or recent infection. This test is intended to be used as a semi-quantitative means of detecting eastern equine encephalitis virus-specific IgM in serum samples in which there is a clinical suspicion of eastern equine encephalitis virus infection. This test should not be used solely for quantitative purposes, nor should the results be used without correlation to clinical history or other data. Because other members of the Alphavirus family, such as western equine encephalitis virus, show extensive cross-reactivity with eastern equine encephalitis virus, serologic testing specific for these species should also be performed. [place] < 1:16 [place] Enceph M (Note) [facility] REFERENCE INTERVAL: [place] Encephalitis Antibody, ? IgM by IFA Less than 1:16 ....... No IgM antibody detected. 1:16 or greater ...... IgM antibody detected, ?which may suggest currjumana t ?or recent infection. This test is intended to be used as a semi-quantitative means of detecting [place] virus-specific IgM in serum samples in which there is a clinical suspicion of [place] virus infection. This test should not be used solely for quantitative purposes, nor should the results be used without correlation to clinical history or other data. ??Because other members of the Flavivirdae family, such as West Nile virus, show extensive cross-reactivity with [place] virus, serologic testing specific for these species should also be performed. [place] [facility] < 1:16 [place] HERMILA IgM (Note) [facility] REFERENCE INTERVAL: Western Equine Encephalitis Antibody, ? IgM by IFA Less than 1:16 ....... No IgM antibody detected. 1:16 or greater ...... IgM antibody detected, ?which may suggest curren t ?or recent infection. This test is intended to be used as a semi-quantitative means of detecting western equine encephalitis virus- specific IgM in serum samples in which there is a clinical suspicion of western equine encephalitis virus infection. This test should not be used solely for quantitative purposes, nor should the results be used without correlation to clinical history or other data. Because other members of the Alphavirus family, such as Eastern equine encephalitis virus, show extensive cross-reactivity with western equine encephalitis Virus, serologic testing specific for these species should also be performed. Specimen Anatomical Collection Method Collection Time Receive d Time (Source) Location / / Volume Laterality 06/17/2004 1:34 PM 4 2:26 CDT PM CDT Cory Ivy MD LABORATORY Performing Organization Address City/State/[facility] Code Phon e Number [facility] [place] [facility] [place] [address] documented in this encounter Visit Diagnoses Not on filedocumented in this encounter Care Teams Manager Diesel Relationship Specialty Start Date End Date Cora Holliday PA-C PCP - General 12/21/00 06/25/04 [facility] [place] [place] [address] Ruperto Rey, PhD PCP - Mental Health/Behavioral 12/21/00 XXX NO INFO FOUND XXX Medicine documented as of this encounter
--- OUTSIDE RECORDS SUMMARY | 2022-09-25 10:57 | XMS_ITS | Encounter Summary ---
:1990 Author Organization [facility] Address [address] [place] [address] Care Team Providers Name Role Phone Cora Holliday PA-C Primary Care Provider [phone] Ruperto Rey PhD Unavailable Unavailable Encounter Details Date Type Department Care Team Description 05/08/2004 [facility] in Ruperto Phillips NO SHOW; [facility] [place] NO SHOW [address] [place] [address] [address] [place] [address] [phone] (Wo rk) Social History Tobacco Use Types Packs/Day Years Used Date Smoking Tobacco: Never Comments: no 2nd hand smoke in the house Alcohol Use Standard Drinks/Week Comments Not Asked 0 (1 standard drink = 0.6 oz pure alcoho l) Sex Assigned at Date Recorded Not on file documented as of this encounter Progress Notes 05/08/2004 3:45 PM CDT Addended by: JAIMIE LOPEZ on: 05/19/2004,7:18 AM 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 To my knowledge they were notified ofthe appointment. Mother had been talked to the day before and to my knowledge there was no indication that they had cancelled the appointment . Let's send out a No Show letter to her. :katya D: [id number] R. Asp, Ed.Demetrius, L.P. T: [facility] documented in this encounter Plan of Treatment Not on filedocumented as of this encounter Visit Diagnoses Diagnosis NO SHOW documented in this encounter Care Teams Rn Integrity Relationship Specialty Start Date End Date Cora Holliday PAKristenC PCP - General 12/21/00 06/25/[address] [place] [address] Ruperto Rey, PhD PCP - Mental Health/Behavioral 12/21/00 XXX NO INFO FOUND XXX Medicine documented as of this encounter
--- OUTSIDE RECORDS SUMMARY | 2022-09-25 10:57 | XMS_ITS | Encounter Summary ---
:1990 Author Organization [place] Address [address] [place] [address] Care Team Providers Name Role Phone Cora Holliday PA-C Primary Care Provider [phone] Ruperto Rey PhD Unavailable Unavailable Reason for Visit Reason Comments A.Caron.H.D Encounter Details Date Type Department Care Team Description 03/25/2004 [facility] JONATHON Pat [facility] W HYPERACT System in [place] MD Brennan (Primary Dx) Psychology [address] [place] [address] [address] [place] [address] [phone] Social History Tobacco Use Types Packs/Day Years Used Date Smoking Tobacco: Never Comments: no 2nd hand smoke in the house Alcohol Use Standard Drinks/Week Comments Not Asked 0 (1 standard drink = 0.6 oz pure alcoho l) Sex Assigned at Date Recorded Not on file documented as of this encounter Last Filed Vital Signs Vital Sign Reading Time Taken Comments Blood Pressure 95/56 03/25/2004 8:25 AM CDT Pulse 82 03/25/2004 8:25 AM CDT Temperature - - Respiratory Rate - - Oxygen Saturation - - Inhaled Oxygen Concentration - - Weight 28.1 kg (62 lb) 03/25/2004 8:25 AM CDT Height 140.3 cm (4' 7.25) 03/25/2004 8:25 AM CDT Body Mass Index 14.28 03/25/2004 8:25 AM CDT Body Mass Index Percentile 1.97 % 03/25/2004 8:25 AM CD T Growth Chart: 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 John [id number] SUBJECTIVE: Royal is 13 years old and in 5th grade at [employer]. He has Mrs. Wong as his teacher. He is broug ht in by his mother today for a recheck on his Attention Deficit. Since last seen in December he has gained ?? inch and his weight is steady. At his last visit in December his Adderall was decreased to 20 XR. He continued on Trazodone 50 mg. I talked with the mother on February 03 and the teachers felt he was much happier, but his grades had diminished considerably. We talked about changing products a nd we are going to change to Concerta 36. Mother never did that because he wasn't feeling well at th e time and was having some other problems. In school things are not going very well at all. In schoo l they say his activity level is increased. He is participating much more, more lively, talkative, bu t he is getting 1's and X's, which are basically unsatisfactory. Because of that we talked about niecy nging his dosage today and we will try him on Concerta 36. Mother is to talk with the teachers after a week to ten days and he is to have an appointment in one month. The patient is still having heada ches at home. He is going to be seeing Dr. Phillips for some relaxationtherapy at the referral of Dr. Maynor osborn. He injured his head recently when he hit the ceiling when hejumped off a couch. He has a CAT sc an result pending. His eye exam with Dr. Sanchez was normal. Otherwise there are no issues at home. O BJECTIVE: Cooperative young man in no distress. The head is normocephalic. TM's are clear. Pupils are equal, round and react to light. Extraocular movements are conjugate. No nystagmus. Fundi are benign. Nose is patent. Pharynx is clear. Neck is supple. Thyroid is normal. Chest is clear to auscul tation and percussion. Cardiovascular - Normal sinus rhythm without murmurs. Abdomen is soft, nonte nder, no HSM or masses noted. Vascular - femorals equal brachials. Skin is clear. Genitalia - Exam deferred. Extremities - Bones and joints are within normal limits. Neurological examination - Crania l nerves II-XII are intact. Deep tendon reflexes are 1+ at the biceps, 1+ at the brachioradialis, 1+ at the knees, 1+ at the ankles and symmetrical. No clonus is present. Toes are down-going. Muscle strength and sensation are without difficulty. There is no past pointing present. There are fine t remors ofoutstretched hands. ASSESSMENT: 1) ADHD who is more spontaneous as his medication has b een dropped, but is not achieving in school. PLAN: 1.Concerta 36 mg one daily #30. 2.Recheck in on e month. 3.Visit today of 25 minutes, 20 minutes of counseling time. RNS:katya D: [id number] Pat M.D. T: 03-25-04 documented in this encounter Plan of Treatment Not on filedocumented as of this encounter Visit Diagnoses Diagnosis Attention deficit disorder with hyperact ivity(314.01) - Primary Attention deficit disorder with hyperact ivity documented in this encounter Care Teams Coffee Bar Attendant Relationship Specialty Start Date End Date Cora Holliday PAKristenC PCP - General 12/21/00 06/25/[address] [place] [address] Ruperto Rey, PhD PCP - Mental Health/Behavioral 12/21/00 XXX NO INFO FOUND XXX Medicine documented as of this encounter
--- OUTSIDE RECORDS SUMMARY | 2022-09-25 10:57 | XMS_ITS | Encounter Summary ---
:1990 Author Organization [facility] Address [address] [place] [address] Care Team Providers Name Role Phone Cora Holliday PA-C Primary Care Provider [phone] Ruperto Rey PhD Unavailable Unavailable Reason for Visit Reason Comments Headache 02/10/04 seen in for head injury Encounter Details Date Type Department Care Team Description 03/12/2004 Office Visit [facility] Mariely Osuna, HEAD ACHE; System in [place] [facility] [address] [place] [address] [place] [address] [place] [address] [address] [place], [place] [address] Social History Tobacco Use Types [...] Sign Reading Time Taken Comments Blood Pressure 110/65 03/12/2004 9:50 AM CDT Pulse 93 03/12/2004 9:50 AM CDT Temperature 36.1 ??C (97 ??F) 03/12/2004 9:50 AM CDT Respiratory Rate - - Oxygen Saturation - - Inhaled Oxygen Concentration - - Weight 28.9 kg (63 lb 12.8 oz) 03/12/2004 9:50 AM CDT Height 141 cm (4' 7.5) 03/12/2004 9:50 AM CDT Body Mass Index 14.56 03/12/2004 9:50 AM CDT Body Mass Index Percentile 3.57 % 03/12/2004 9:50 AM CD T Growth Chart: 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 Headaches. Royal has had headaches for many years. We first discussed this problem in 2000. However they have seemed t o worsen over the past year or so to the point where they are now daily. He describes these as occuri ng in the middle of his forehead pounding in nature. They are usually mild that occur when he either wakes up in the morning or when he is home from school. Mom uses Tylenol or Advil.He has severe head aches that can be associated with nausea and sometimes vomiting about two times per month. With sever e headaches mom will use some Tylenol with codeine most recently prescribed by Dr. Banerjee. She use s that only about once every two weeks. He does complain of feeling dizzy. He toledo s a longstanding prob ramirez with appetite and constipation. He does not lay down easily and in fact hehas had trouble with h is sleep. He usually sits quietly and gets angry. In the past mom thought that his anxiety playe d a role. She does not think that that is significantfactor currently. There is a family history of migraine headaches in the mother, maternal, grandmother and other distant relatives. Royal denies fe wes, chills, sweats, or respiratory symptoms. He does have a tic cough. He does nothave any known allergies. He has noted no change in his vision or hearing. He has no aura reported before a headache . He has had no change in balance or coordination. PAST MEDICAL HISTORY: Significant for his Attent ion Deficit disorder and sleep disturbance. He is currently on Adderall at 25 mg. That dose was decre ased a few weeks ago. His Trazodone was increased due to his sleep problems. Mom reports that things are going relatively well right now' so she did not want to change to the Concerta that she had prev iously discussed with Dr. Pat. She has no plan to change medications at this point in time. Triston vance was treated with antibiotics for a sinus infection recently. Although he has used an inhaler in th e past, he does not have a diagnosis of asthma at the current time although his breather does have as thma. She also notes he had multiple mild head injuries including a recent diagnosis of a mild conc ussion. PHYSICAL EXAM: General: Royal is quiet, relatively noncommunicative. Eyes: Conjunctivae are not injected. Pupils are equally round and reactive to light. Optic disk appear sharp. Ears: Both TM s are translucent. Nose: Congested with erythema and discharge. Oropharynx: No tonsillar erythema or exudate. Moist mucous membranes. Neck: Supple without significant adenopathy. Chest: Good air entry , clear to auscultation. CV: RRR, no murmur. Abdomen: Flat, active bowel sounds, no HSM appreciated. He does haves voluntary guarding. : Not done. Neural Exam: He has normal [id number]-zb-nnne, rapid al ternating movements, heel- leong. Normal gait and normal tandem gait. Normal heel-walking and toe-walk ing. ASSESSMENT: 1. Chronic daily headache with family history of migraines. 2. Attention Deficit disorder and behavioral issues followed by Dr. Pat. 3. Chronic constipation. PLAN: We discus sed evaluation and treatment options including controller medications and reliever medications. Aft er discussion, we will schedule for a CT scan and a vision exam looking at both the sinuses and brain . We discussed using Midrin as a reliever medicine for more significant headaches and continuing Tyle nol or ibuprofen. We had previously discussed other possible trigger methods. I did recommend that tenzin vance consider short term visits with Dr. Rey or Dr. Phillips for consideration of relaxation and biofeedba ck training with regards to his anxiety and management of daily headaches. We could consider a cont roller medicine such as Amitriptyline. Would want to discuss whether we could substitute that for his Trazodone or we could consider a trial of Atenolol. Dr. Pat has noobjection to using that i n the setting of the Adderall. Mom will schedule the follow up appointments as we discussed. A pres cription for Midrin is provided. We also discussed constipation management. He will use MiraLax as prescribed until stools are soft and daily and then Benefiber on a daily basis with MiraLax on an as needed basis. Mariely Osuna M.D./omar documented in this encounter Nursing Notes 03/12/2004 9:50 AM CDT >> OBED BALBUENA 03/12/2004 9:32 am Pain Questionnaire: Is your visit today because of Pain? NO documented in this encounter Plan of Treatment Not on filedocumented as of this encounter Visit Diagnoses Diagnosis Headache(784.0) Headache Unspecified constipation documented in this encounter Care Teams Welfare Eligibility Worker Relationship Specialty Start Date End Date Cora Holliday PAKristenC PCP - General 12/21/00 06/25/[address] [place] [address] Ruperto Rey, PhD PCP - Mental Health/Behavioral 12/21/00 XXX NO INFO FOUND XXX Medicine documented as of this encounter
--- OUTSIDE RECORDS SUMMARY | 2022-09-25 10:57 | XMS_ITS | Encounter Summary ---
:1990 Author Organization [facility] Address [address] [place] [address] Care Team Providers Name Role Phone Cora Holliday PA-C Primary Care Provider [phone] Ruperto Rey PhD Unavailable Unavailable Encounter Details Date Type Department Care Team Description 05/22/2004 [facility] Health Asp, Ruperto García HEADACHE; System in [facility] ATTN DEFICIT W HYPERACT Psychology [address] [place] [address] [place] [address] [phone] Social History Tobacco Use Types Packs/Day Years Used Date Smoking Tobacco: Never Comments: no 2nd hand smoke in the house Alcohol Use Standard Drinks/Week Comments Not Asked 0 (1 standard drink = 0.6 oz pure alcoho l) Sex Assigned at Date Recorded Not on file documented as of this encounter Progress Notes 05/22/2004 3:45 PM CDT Addended by: JAIMIE LOPEZ on: 05/28/2004,6:36 AM 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 He is brought to the appointment by his mother. I meet with Royal to begin with. This was the second meeting with Royal. Because it is the second meeting and because he was relatively non-engaging at th e initial session I plan on playing with him the Talking, Feeling and Doing Game if he so consents. Coming to the office he in fact does consent to the game and it appears to enable him to feel a bit more comfortable, be a bit more engaged in the therapy process. At the end of the game he was hooke dup then and consented to be hooked up to the EMG machine. The machine was hooked up to the right f orearm muscle as a way of demonstrating to him what biofeedback is. He had seen his mother at the in itial intake appointment be hooked up, but this was a bit more of a personal connection. He did repo rt that his headaches have been less. He also talked about his interest in dirt biking. Mother conf irms that the headaches have been less since school has let out. She is interested though in Royal co ntinuing some therapy regarding relaxation. Royal also is interested in returning. We talk a little bi t about playing the game again. Hopefully this will be a way to keep him connected and at the same t joe introducing teaching him some relaxation skills. We will look to set up a treatment plan at the next session. :katya D: [id number] Hare Asp, Ed.D., L.P. T: 05-27-04 [facility] documented in this encounter Plan of Treatment Not on filedocumented as of this encounter Visit Diagnoses Diagnosis Headache(784.0) Headache Attention deficit disorder with hyperact ivity(314.01) Attention deficit disorder with hyperact ivity documented in this encounter Care Teams Grab Driver Relationship Specialty Start Date End Date Cora Holliday PA-C PCP - General 12/21/00 06/25/[address] [place] [address] Ruperto Rey, PhD PCP - Mental Health/Behavioral 12/21/00 XXX NO INFO FOUND XXX Medicine documented as of this encounter
--- OUTSIDE RECORDS SUMMARY | 2022-09-25 10:57 | XMS_ITS | Encounter Summary ---
:1990 Author Organization [place] Address [address] [facility] [place] [address] Care Team Providers Name Role Phone Cora Holliday PA-C Primary Care Provider [phone] Ruperto Rey PhD Unavailable Unavailable Reason for Visit Reason Comments Other Encounter Details Date Type Department Care Team Description 03/10/2004 Office Visit [facility] Monster Banegas MD in [facility] [address] [facility] [address] [place] [address] [address] [place], [place] [address] (Wo rk) Social History [...] Sign Reading Time Taken Comments Blood Pressure 99/55 03/10/2004 5:00 PM CDT Pulse 90 03/10/2004 5:00 PM CDT Temperature 35.7 ??C (96.3 ??F) 03/10/2004 5:00 PM CDT Respiratory Rate - - Oxygen Saturation - - Inhaled Oxygen Concentration - - Weight 29.5 kg (65 lb) 03/10/2004 5:00 PM CDT Height - - Body Mass Index - - documented in this encounter Progress Notes 03/10/2004 5:00 PM CDT The patient presents today with a bump on his head which occurred last night when he was jumping ont he couch. He hit his head on the ceiling. He had no loss of consciousness. No memory loss. Had a little nausea nad decreased appetite but otherwise behaving fairly normally. Sleeping fairly well. Eating fairly well. Mom thinks the bump is a little larger. Denies any drainage. No neck pain. De nies any other neurologic symptoms. Does have a history of chronic headache. EXAMINATION: The sonia ent is alert and oriented, pleasant and cooperative with exam. No acute distress. Vitals: See nursi ng note. HEENT: Negative. Neck: Supple. No midline tenderness of his neck. Normal range of motion. Does have a small bump on the top of his head with a small superficial abrasion. No stepoff. No s evere tenderness. No discharge, bleeding or signs of infection. Neurologic: Nonfocal. ASSESSMENT: Contusion/closed head injury. Possible very mild concussion. PLAN: Recommend rest, ice, Tylenol a s needed for pain. Also refilled Tylenol with codeine as neededfor more severe headache. He should follow up with his regular doctor for recheck. Follow up emergently if any worsening or any neurolo gic symptom. Monster ogden M.D./grace documented in this encounter Nursing Notes 03/10/2004 5:00 PM CDT >> REESE LAZAR 03/10/2004 5:33 pm Pain Questionnaire: Is your visit today because of Pain? YES. Where is the pain located? head. How would you describe the pain? aching and penetrating. How long have you had the pain? 1 day(s). On a scale of 1-10 with 10 the worst - how would you rate your pain right now? 7. What have you been using to alleviate the pain? OTC Ibuprofen Pamphlet given to patient? yes. documented in this encounter Plan of Treatment Not on filedocumented as of this encounter Visit Diagnoses Not on filedocumented in this encounter Care Teams Boil Off Worker Relationship Specialty Start Date End Date Cora Holliday PA-C PCP - General 12/21/00 06/25/[address] [place] [address] Ruperto Rey, PhD PCP - Mental Health/Behavioral 12/21/00 XXX NO INFO FOUND XXX Medicine documented as of this encounter
--- OUTSIDE RECORDS SUMMARY | 2022-09-25 10:57 | XMS_ITS | Encounter Summary ---
:1990 Author Organization [place] Address [address] [facility] [place] [address] Care Team Providers Name Role Phone Mariely Osuna MD Primary Care Provider Ruperto Rey PhD Unavailable Unavailable Reason for Visit Reason Comments Cough Encounter Details Date Type Department Care Team Description 11/01/2004 Office Visit [facility] Uriel Sidhu, in [facility] PA-C [address] [place] [address] [place], [place] [address] (Wo rk) Social History [...] Sign Reading Time Taken Comments Blood Pressure 91/46 11/01/2004 9:00 AM SOFTWARE CONFIGURATION SPECIALIST Pulse 84 11/01/2004 9:00 AM SOFTWARE CONFIGURATION SPECIALIST Temperature 37.1 ??C (98.8 ??F) 11/01/2004 9:00 AM SOFTWARE CONFIGURATION SPECIALIST Respiratory Rate - - Oxygen Saturation - - Inhaled Oxygen Concentration - - Weight 33.1 kg (73 lb) 11/01/2004 9:00 AM SOFTWARE CONFIGURATION SPECIALIST Height - - Body Mass Index - - documented in this encounter Progress Notes 11/01/2004 9:00 AM SOFTWARE CONFIGURATION SPECIALIST SUBJECTIVE: He has had a cough getting worse over the past 1 1/2 to 2 weeks with some low fevers athome. The child had a similar presentation in May when he was admitted to the hospital for pneumonia. He does have a history of mild bronchospasm but has not been using his inhaler. OBJECTIVE: The brenda cox is in no distress, afebrile. Occasional coughing during exam but mild. Ears - clear. Throat - c lear. No drainage. Sinuses - nontender. Lungs - clear. Heart tones - normal. ASSESSMENT: 1. Upper respiratory infection. 2. Bronchospasm likely. PLAN: 1. Advised using inhaler, Proventil MDI four times daily prn. 2. If that doesn't resolve the cough, then Z-Olivier for 5 days. 3. Patient won't swal low any liquid medicine, according to the mother, whatsoever. Will take his antibiotic with food and he will recheck with the clinic fail to improve. Addison Sidhu PA-C/cesar T: documented in this encounter Nursing Notes 11/01/2004 9:00 AM CST >> ROBINA VARGHESE 11/01/2004 10:46 am Pain Questionnaire: Is your visit today because of Pain? NO documented in this encounter Plan of Treatment Not on filedocumented as of this encounter Visit Diagnoses Not on filedocumented in this encounter Care Teams Research Intern Relationship Specialty Start Date End Date Mariely Osuna MD PCP - General 06/26/04 09/25/[address] [facility] [address] [place] [address] Ruperto Rey, PhD PCP - Mental Health/Behavioral 12/21/00 XXX NO INFO FOUND XXX Medicine documented as of this encounter
--- OUTSIDE RECORDS SUMMARY | 2022-09-25 10:57 | XMS_ITS | Encounter Summary ---
:1990 Author Organization [place] Address [address] [facility] [place] [address] Care Team Providers Name Role Phone Mariely Osuna MD Primary Care Provider Ruperto Rey PhD Unavailable Unavailable Reason for Visit Reason Comments Fever x 1 day Headache in am x 2 days Throat Problem ear, throat, and neck pain x 2 days Encounter Details Date Type Department Care Team Description 05/12/2005 Office Visit [facility] Juan Champagne MD STREP SORE THROAT System in [facility] (Pr imary Dx) Pediatrics CLINIC [address] [facility] [address] [place], [place] [address] [phone] Social History Tobacco Use Types Packs/Day Years [...] Pressure - - Pulse - - Temperature 37.1 ??C (98.8 ??F) 05/12/2005 9:10 AM CDT Respiratory Rate - - Oxygen Saturation - - Inhaled Oxygen Concentration - - Weight 33.8 kg (74 lb 9.6 oz) 05/12/2005 9:10 AM CDT Height - - Body Mass Index - - documented in this encounter Progress Notes Juan Champagne MD - 05/12/2005 11:38 AM CDT SUBJECTIVE: John Gavin is an 14 year old male who presents for evaluation and treatment of sore throat. Symptoms include sore throat, fever and headache. Onset 2 days, stable since that time. Known Strep exposure: none. 1. PENICILLIN VK TABS 250 MG OR Route: Oral Si po tid x 10 days Dispense: 30 Refill: 0 2. CONCERTA 54 MG OR TBCR Route: Oral Sig:one 54 mg tab daily Dispense: 30 Refill: 0 3. TRAZODONE HCL 50 MG OR TABS Route: Si bedtime Dispense: 15 Refill: 0 4. ADVIL 200 MG OR CAPS Route: Sig:prn, per mom Dispense: Refill: 0 Zithromax (azithrom* Hives Tobacco Use: Never Comment: no 2nd hand smoke in the house Alcohol Use: Not on file OBJECTIVE: Temp (Src) 98.8 (Oral) Wt 74 lbs 9.6 oz (33.8kg) General appearance: healthy, alert, no distress and cooperative Ears: R TM - normal: no effusions, no erythema, and normal landmarks, L TM - normal: no effusions, no erythema, and normal landmarks Nose: normal Oropharynx: mild erythema Neck: normal, supple and moderate anterior cervical adenopathy bilaterally Lungs: normal and clear to auscultation Heart: regular rate and rhythm and no murmurs, clicks, or gallops ASSESSMENT: Acute pharyngitis - r/o Strep RSS positive Dx: Strep pharyngitis Rx: 1) Symptomatic treatment with fluids, vaporizer, acetaminophen. 2) Recheck as needed for persistence, worsening, appearance of new symptoms. 3) PenVK 250mg TID x 10 days PLAN: Discussed possible etiologies of symptoms and need for antibiotic treatment if Strep found. documented in this encounter Plan of Treatment Not on filedocumented as of this encounter Procedures Procedure Name Priority Date/Time Associated Diagnosis Comme nts HCL STREP GROUP A Routine 05/12/2005 10:02 AM Strep Sore Throa t Results for this AG (RAPID) CDT procedure are i n the results section. documented in this encounter Results STREP GROUP A AG (RAPID) (05/12/2005 10:02 AM CDT) Component Value Ref Test Analysis Performed At [facility] Method Time Signature Specimen Throat [place] Description [facility] Rapid Strep A POSITIVE: Group [place] R ED Screen A Streptococcal [facility] antigen detected by immunoassay. Report status FINAL [id number] [place] RE D [facility] Specimen Anatomical Collection Method Collection Time Receive d Time (Source) Location / / Volume Laterality 05/12/2005 10:02 05/12/2005 AM CDT 10:07 AM CDT Juan Champagne MD LABORATORY Performing Organization Address City/State/ZIP Code Phon e Number [facility] [address] documented in this encounter Visit Diagnoses Diagnosis Streptococcal sore throat - Primary documented in this encounter Care Teams Emblem Cutter Relationship Specialty Start Date End Date Mariely Osuna MD PCP - General 06/26/04 09/25/12 [facility] [place] [address] [place] [address] [address] [place] [address] Ruperto Rey, PhD PCP - Mental Health/Behavioral 12/21/00 XXX NO INFO FOUND XXX Medicine documented as of this encounter
--- OUTSIDE RECORDS SUMMARY | 2022-09-25 10:57 | XMS_ITS | Encounter Summary ---
:1990 Author Organization [place] Address [address] [facility] [place] [address] Care Team Providers Name Role Phone Cora Holliday PA-C Primary Care Provider [phone] Ruperto Rey PhD Unavailable Unavailable Reason for Visit Reason Comments complete eye exam Encounter Details Date Type Department Care Team Description 03/24/2004 Office Visit [facility] Tyrese Sanchez MD EYE & VISION System in [facility] EYE EXAMIN ATION (Primary Ophthalmology SURGERY Dx) [address] [place] [address] [phone] Social History Tobacco Use Types Packs/Day Years Used Date Smoking Tobacco: Never Comments: no 2nd hand smoke in the house Alcohol Use Standard Drinks/Week Comments Not Asked 0 (1 standard drink = 0.6 oz pure alcoho l) Sex Assigned at Date Recorded Not on file documented as of this encounter Progress Notes 03/24/2004 8:00 AM CDT Addended by: JOE CORTES on: 03/31/2004,8:17 AM Comment: Level Glass Forming Machine Operator/sent to Cora guillory or review per Dr. Sanchez Modules accepted: Order Summary, Progress Notes Addended by: JOE CORTES on : 03/31/2004,8:15 AM Comment: Level Glass Forming Machine Operator. Modules accepted: Progress Notes Pain Questionnaire : Is your visit today because of Pain? NO John Gavin is a 13 year old male who presents for complete eye exam. History of Present Illness: Ivonne states that patient has been having headach es for about the past2 years now that have been getting worse. no past history of eye problems are n oted. This is his first complete eye exam. Mother notes that eyes have always been straight and visio n has been good. Ptis having a CT scan after this appointment Gareth Maria TeresaMK meade Visual Acuity SC D istance OD: 20 Visual Acuity SC Distance OS: 20 Visual Acuity SC Near OD: 20 at 12 inches Visual Acuity SC Near OS: 20 at 12 inches IOP: unable Comments: ortho at dist and near versions WNL NPC to nose 40 seconds of stereo negative for APD?-only quick look with pt closing eyes Dilation Medicati on: Tropicamide 1.0% Phenylephrine 2.5% Cyclogel 1.0% CR +0.50 20/20 +0.50 20/20 Patient Activ e Problem List: HEADACHE[784.0] ATTN DEFICIT W HYPERACT[314.01] TIC DISORDER NOS[307.20] SLE EP DISTURBANCE NOS[780.50] UNSPEC CONSTIPATION[564.00] PAST MEDICAL HISTORY: There is no previous medical history on file. PAST SURGICAL HISTORY: Review of patient's past surgical history indicates : CYSTOURETHROSCOPY 06/22/03 MEDICATIONS: Current prescriptions: T RAZODONE HCL 50 MG OR TABS 1 bedtime ADDERALL XR (25MG) OR CP24 25 mg po daily MIRALAX OR POWD 1 CAPF UL IN 8 OZ WATER ONCE DAILY UNTIL DESIRED RESULT AND THEN NEEDED BENEFIBER OR PACK 1 TO 2 TEASPOON S IN 8 OZ OF WATER OR JUICE ONCE DAILY MIDRIN 325-65-100 MG OR CAPS 2 Capsules at onset of headache. May take additional capsule after 1 hour if no relief. Not to exceed 5 capsules in 24 hours. ADVIL 2 00 MG OR CAPS prn, per mom ALLERGIES: No Known Allergies Tobacco Use: Never Comment: no 2nd hand smoke in the house Alcohol Use: Not Asked Pt does not drive motor vehicle. Revie w of patient's family history indicates: Neurological Mother Comment: migraine headaches Neurological Paternal Grandmother Comment: migr freddy headaches REVIEW OF SYSTEMS: General: negative Skin: negative Eyes: negative Ears/Nose/Mouth/ Throat: negative Respiratory: negative Cardiovascular: negative Gastrointestinal: negative Genitourin kaylan: negative Musculoskeletal: negative Neurologic: negative Psychiatric: negative Hematologic/Lympha tic/Immunologic: negative Endocrine: negative HISTORY: As noted. The patient is seen in consultat ion for a history of headaches following a closed-head injury and concussion within the last month. He has a family history of migraines. EXAM: CONFRONTATION FLOYD: Full. EXTERNAL: Without lesions . MOTILITY: Full. PUPILS: No afferent defect. SLIT LAMP EXAM: Conjunctivae/sclerae quiet. Corneas clear. Lenses clear. FUNDUS: Normal maculae, discs and periphery. ASSESSMENT: Headaches of non- ocular etiology. PLAN: Reassurance. Recheck on a prn basis. Benny Sanchez M.D./patrick c: Cora Holliday PA-C documented in this encounter Plan of Treatment Not on filedocumented as of this encounter Procedures Procedure Name Priority Date/Time Associated Diagnosis Comme nts HC REFRACTION Routine 03/24/2004 9:20 AM CDT Eye & Vision Exam ination documented in this encounter Visit Diagnoses Diagnosis Examination of eyes and vision - Primary documented in this encounter Care Teams Filing Clerk Relationship Specialty Start Date End Date Cora Holliday PA-C PCP - General 12/21/00 06/25/[address] [place] [address] Ruperto Rey, PhD PCP - Mental Health/Behavioral 12/21/00 XXX NO INFO FOUND XXX Medicine documented as of this encounter
--- OUTSIDE RECORDS SUMMARY | 2022-09-25 10:57 | XMS_ITS | Encounter Summary ---
:1990 Author Organization [place] Address [address] [place] [address] Care Team Providers Name Role Phone Mariely Osuna MD Primary Care Provider Ruperto Rey PhD Unavailable Unavailable Reason for Visit Reason Comments A.Caron.H.Caron Encounter Details Date Type Department Care Team Description 07/09/2004 [facility] JONATHON PatI CIT W HYPERACT; System in [place] [facility] SLEEP DISTURBANCE NOS Psychology [address] [place] [address] [place] [address] [phone] Social History Tobacco Use Types Packs/Day Years Used Date Smoking Tobacco: Never Comments: no 2nd hand smoke in the house Alcohol Use Standard Drinks/Week Comments Not Asked 0 (1 standard drink = 0.6 oz pure alcoho l) Sex Assigned at Date Recorded Not on file documented as of this encounter Last Filed Vital Signs Vital Sign Reading Time Taken Comments Blood Pressure 99/68 07/09/2004 8:45 AM CDT Pulse 84 07/09/2004 8:45 AM CDT Temperature - - Respiratory Rate - - Oxygen Saturation - - Inhaled Oxygen Concentration - - Weight 30.6 kg (67 lb 8 oz) 07/09/2004 8:45 AM CDT Height 142.9 cm (4' 8.25) 07/09/2004 8:45 AM CDT Body Mass Index 15 07/09/2004 8:45 AM CDT Body Mass Index Percentile 5.93 % 07/09/2004 8:45 AM CD T Growth Chart: CDC (Boys, 2-20 Years) documented in this encounter Progress Notes 07/09/2004 8:45 AM CDT Addended by: JAIMIE LOPEZ on: 07/14/2004,5:08 PM Comment: terminal operations manager Modules accepted: Shantanu galicia Notes This encounter has been dictated. John [id number] SUBJECTIVE: Letty beckett is 13 years old and will be going into the 6th grade at [employer]. He is brought in by his mother today for reevaluation of Attention Deficit. Since last seen in February he has gained 5 ?? pounds and 1 inch. He continues on Concerta 36 mg a day and Trazodone 50 mg as needed. The mo ther did not get his report card because they moved. We went to [place] at his last visit inApril a nd that has gone very well. She said that there were some homework issues, but she felt thatthe acad emics were improved. She heard nothing more from the school. Socially and the bus rides went fine. S he will try to get that report card from the school. This summer has gone well. He has beenon medic ations. They have gone to [facility] [employer] and he has been riding his dirt bike. At home he saw Dr. Phillips for biofeedback for headaches. He has not complained of headaches over the summer so it may be more r elated to the stressors of school. He had pneumonia in May and has recovered from that. He has had a head CT, which is normal. Mother had shoulder surgery in April and has had aslow recovery. She is g oing to go to work at [employer] in [place] this fall. Mornings she said he is just absolutely the worst person possible. He is screaming a lot to his brother Cristian. I have suggested that she get the [employer] catalog and look at suggestions for homework success and also for dealing with shellfish weigher behaviors. We talked about giving him a dose before he totally wakes up, but she thinks he would be up completely once that started. OBJECTIVE: Royal was quite quiet this morning. The head is normoc ephalic. TM's are clear. Pupils areequal, round and react to light. Extraocular movements are conju gate. No nystagmus. Fundi are benign. Nose is patent. Pharynx is clear. Neck is supple. Thyroid i s normal. Chest is clear to auscultation and percussion. Cardiovascular - Normal sinus rhythm witho ut murmurs. Abdomen is soft, nontender,no HSM or masses noted. Vascular - femorals equal brachials . Skin is clear. Genitalia - Exam deferred. Extremities - Bones and joints are within normal limits. Neurological examination - Cranial nerves II-XII are intact. Deep tendon reflexes are 1+ at the bi ceps, 1+ at the brachioradialis, 2+ at theknees, 1+ at the ankles and symmetrical. No clonus is pre sent. Toes are down-going. Muscle strengthand sensation are without difficulty. There is no past pointing present. There are fine tremors of outstretched hands. ASSESSMENT: 1) ADHD who is doing well according to mother's report, but without objective evidence. PLAN: 1.Concerta 36 mg one jayy y #30. 2.Trazodone 50 mg as needed. 3.Recheck in six months. 4.Visit today of 25 minutes, 20 minut es of counseling time. RNS:katya D: [id number] Pat M.D. T: 07-15-04 documented in this encounter Plan of Treatment Not on filedocumented as of this encounter Visit Diagnoses Diagnosis Attention deficit disorder with hyperact ivity(314.01) Attention deficit disorder with hyperact ivity Sleep disturbance, unspecified documented in this encounter Care Teams Patching Machine Operator Relationship Specialty Start Date End Date Mariely Osuna MD PCP - General 06/26/04 09/25/[address] [place] [address] Ruperto Rey, PhD PCP - Mental Health/Behavioral 12/21/00 XXX NO INFO FOUND XXX Medicine documented as of this encounter
--- OUTSIDE RECORDS SUMMARY | 2022-09-25 10:57 | XMS_ITS | Encounter Summary ---
:1990 Author Organization [place] Address [address] [place] [address] Care Team Providers Name Role Phone Cora Holliday PA-C Primary Care Provider [phone] Ruperto Rey PhD Unavailable Unavailable Encounter Details Date Type Department Care Team Description 02/04/2004 Telephone [facility] in [place] Brennan gramajo MD [place] [facility] [address] [place] [address] [place] [address] [phone] (Wo rk) Social History Tobacco Use Types Packs/Day Years Used Date Smoking Tobacco: Never Comments: no 2nd hand smoke in the house Alcohol Use Standard Drinks/Week Comments Not Asked 0 (1 standard drink = 0.6 oz pure alcoho l) Sex Assigned at Date Recorded Not on file documented as of this encounter Miscellaneous Notes Telephone Encounter - 02/04/2004 11:59 PM MOLD PARTER >> JAIMIE LOPEZ Fri Feb 08, 2004 2:07 PM >> CALL RECEIVED. Contact: John [id number] Mother called and last time we decreased his medication to 20 because a lot of his spontaneity was g one. The teachers thought he was much happier off. Now on his daily work he is getting 1's instead of 3's and he is very concerned about it. He has h eadaches four to five days a week, always in the frontal area. I told the mother we could take him off his medication and see how he does, or we could try to change products. She is not aware that he was ever on Ritalin. We will give a prescription for Concerta 36 one daily #30 and she is to ge t back to me. RNS:katya D: [id number] Pat M.D. T: 02-06-04 documented in this encounter Plan of Treatment Not on filedocumented as of this encounter Visit Diagnoses Not on filedocumented in this encounter Care Teams Clinical Research Technician Relationship Specialty Start Date End Date Cora Holliday PA-C PCP - General 12/21/00 06/25/[address] [place] [address] Ruperto Rey, PhD PCP - Mental Health/Behavioral 12/21/00 XXX NO INFO FOUND XXX Medicine documented as of this encounter
--- OUTSIDE RECORDS SUMMARY | 2022-09-25 10:57 | XMS_ITS | Encounter Summary ---
:1990 Author Organization [place] Address [address] [place] [address] Care Team Providers Name Role Phone Cora Holliday PA-C Primary Care Provider [phone] Ruperto Rey PhD Unavailable Unavailable Encounter Details Date Type Department Care Team Description 06/18/2004 [facility] [address] [place] [address] [address] [place], [place] [address] [phone] Social History Tobacco Use Types Packs/Day Years [...] Comme nts CL AFF CBC WITH Routine 06/18/2004 7:57 AM Result s for this PLATELETS, DIFF CDT procedure ar e in the results section. documented in this encounter Results (ABNORMAL) CBC WITH PLATELETS, DIFF (06/18/2004 7:57 AM CDT) [facility] Method Time Signature WBC 15.7 (H) 4.0 - [facility] 11.0 [facility] 10e9/L RBC Count 3.91 3.7 - 5.3 [facility] 10e12/L [facility] Hemoglobin 11.1 (L) 11.7 - [facility] 15.7 g/dL [facility] Hematocrit 32.1 (L) 40.0 - [facility] 53.0 % [facility] MCV 82 77 - 100 [facility] fl [facility] MCH 28.4 26.5 - [facility] 33.0 pg [facility] MCHC 34.5 32.0 - [facility] 36.0 g/dL [facility] RDW 13.3 10.0 - [facility] 15.0 % [facility] Platelet Count 216 150 - 450 [facility] 10e9/L [facility] Diff Method Automated [facility] Method [facility] % Neutrophils 90 (H) 32 - 64 % [facility] % Lymphocytes 4 (L) 26 - 50 % [facility] % Monocytes 4 0 - 12 % [facility] % Eosinophils 1 0 - 6 % [facility] % Basophils 1 0 - 2 % [facility] Absolute 14.2 (H) 1.3 - 7.0 [facility] Neutrophil 10e9/L [facility] Absolute 0.6 (L) 1.0 - 5.8 [facility] Lymphocytes 10e9/L [facility] Absolute 0.6 0.0 - 1.3 [facility] Monocytes 10e9/L [facility] Absolute 0.1 0.0 - 0.7 [facility] Eosinophils 10e9/L [facility] Absolute 0.1 0.0 - 0.2 [facility] Basophils 10e9/L [facility] Specimen Anatomical Collection Method Collection Time Receive d Time (Source) Location / / Volume Laterality 06/18/2004 7:57 AM 4 7:59 CDT AM CDT Juan Champagne MD LABORATORY Performing Organization Address City/State/ZIP Code Phon e Number [facility] [address] documented in this encounter Visit Diagnoses Not on filedocumented in this encounter Care Teams Rail Car Mechanic Relationship Specialty Start Date End Date Cora Holliday PA-C PCP - General 12/21/00 06/25/04 [facility] [place] [address] [place] [address] Ruperto Rey, PhD PCP - Mental Health/Behavioral 12/21/00 XXX NO INFO FOUND XXX Medicine documented as of this encounter
--- OUTSIDE RECORDS SUMMARY | 2022-09-25 10:57 | XMS_ITS | Encounter Summary ---
:1990 Author Organization [facility] Address [address] [place] [address] Care Team Providers Name Role Phone Cora Holliday PA-C Primary Care Provider [phone] Ruperto Rey PhD Unavailable Unavailable Reason for Visit Reason Comments Headache Nausea Chest Pain Encounter Details Date Type Department Care Team Description 02/10/2004 Office Visit [facility] Stanley Andrade MD in [facility] [address] [facility] [address] [facility] [address] [place] [address] [place] [address] [phone] (Wo rk) Social History Tobacco Use Types [...] Sign Reading Time Taken Comments Blood Pressure 111/64 02/10/2004 10:30 AM CANVAS BASTER Pulse 103 02/10/2004 10:30 AM CANVAS BASTER Temperature 36.9 ??C (98.4 ??F) 02/10/2004 10:30 AM CANVAS BASTER Respiratory Rate - - Oxygen Saturation - - Inhaled Oxygen Concentration - - Weight 29 kg (64 lb) 02/10/2004 10:30 AM CANVAS BASTER Height - - Body Mass Index - - documented in this encounter Progress Notes 02/10/2004 10:30 AM CANVAS BASTER SUBJECTIVE: The patient comes in at this time with mother complaining of persistent and recurring hea daches as well as cough, cold, and purulent rhinorrhea with sore throat at this time. Mother stats he has been followed by Dr. Pat for ADHD and because of persistent headaches with associated na usea, recommended follow up with the patient's regular PCP for evaluation for possibl e migraine headaches. Mother at this time would like acute care for a possible sinus infection. PHYS ICAL EXAM: Vital signs as listed in chart. General appearance - the patient is well nourished, well developed. No apparent distress. Normal mood and affect. Oriented x 3. Eyes - conjunctivae, pupils and irises within normal limits. External ears normal. Purulent postnasal drainage. Normal lips, te eth and tongue. Neck - appears to be grossly normal with thyroid grossly normal. Respiratory rate is relaxed. No audible wheezing. Heart and lungs are clear at this time. ASSESSMENT: Sinusitis. PLAN : Amoxicillin, 250 three times a day for 10 days. Mother also requests Tylenol #3 for the child's he adache 1 tablet every 6 hours as needed #12 were given. The patient will follow up with PCP for furth er evaluation. Stanley Andrade M.D./omar documented in this encounter Nursing Notes 02/10/2004 10:30 AM CST >> STANLEY ANDRADE 02/10/2004 10:31 am Pain Questionnaire: Is your visit today because of Pain? YES. Where is the pain located? head. How would you describe the pain? throbbing. How long have you had the pain? 2 month(s). On a scale of 1-10 with 10 the worst - how would you rate your pain right now? 8. What have you been using to alleviate the pain? MD prescribed pain medication Pamphlet given to patient? yes. documented in this encounter Plan of Treatment Not on filedocumented as of this encounter Visit Diagnoses Not on filedocumented in this encounter Care Teams Cosmetic Chemist Relationship Specialty Start Date End Date Cora Holliday PA-C PCP - General 12/21/00 06/25/[address] [place] [address] Ruperto Rey, PhD PCP - Mental Health/Behavioral 12/21/00 XXX NO INFO FOUND XXX Medicine documented as of this encounter
--- OUTSIDE RECORDS SUMMARY | 2022-09-25 10:57 | XMS_ITS | Encounter Summary ---
:1990 Author Organization [place] Address [address] [place] [address] Care Team Providers Name Role Phone Mariely Osuna MD Primary Care Provider Ruperto Rey PhD Unavailable Unavailable Reason for Visit Reason Comments A.Caron.H.Caron Encounter Details Date Type Department Care Team Description 03/24/[address] [facility] JONATHON Pat CIT W HYPERACT System in [place] MD Brennan (Primary Dx) Psychology [address] [place] [address] [place] [address] [phone] Social History Tobacco Use Types Packs/Day Years Used Date Smoking Tobacco: Never Comments: no 2nd hand smoke in the house Alcohol Use Standard Drinks/Week Comments Not Asked 0 (1 standard drink = 0.6 oz pure alcoho l) Sex Assigned at Date Recorded Not on file documented as of this encounter Last Filed Vital Signs Vital Sign Reading Time Taken Comments Blood Pressure 120/70 03/24/2005 2:10 PM CDT Pulse 92 03/24/2005 2:10 PM CDT Temperature - - Respiratory Rate - - Oxygen Saturation - - Inhaled Oxygen Concentration - - Weight 34.7 kg (76 lb 8 oz) 03/24/2005 2:10 PM CDT Height 146.1 cm (4' 9.5) 03/24/2005 2:10 PM CDT Body Mass Index 16.27 03/24/2005 2:10 PM CDT Body Mass Index Percentile 17.41 % 03/24/2005 2:10 PM CD T Growth Chart: [facility] (Boys, 2-20 Years) documented in this encounter Progress Notes Brennan Pat - 03/24/2005 2:33 PM CDT Comment: tooth cutter spur This encounter has been dictated. John Gavin [id number] [birth year]05 SUBJECTIVE: John is 14 years old and in 6th grade at [employer]. He is brought inby his mother today for reevaluation of Attention Deficit. Since last seen in October he has gained5 pounds and ?? inch. He continues on Trazodone 50 mg at bedtime and at his last visit in October we increased him to 54 mg per day. Mother says school is going much better. She hears he is more cooperative. At the semester he had four C???s, two B???s, F in social which was changed to a higher grade because he turned his work in. The increase in meds she feels was helpful. His grades have definitely gone up, but also the mother has been off work since January 14 and has had more time to work with him. They do not have the third quarter report card as they have it packed and are moving to [facility], but he had no F???s. He is making good progress on his IEP in reading and language. The patient said he can tell no difference on and off medication. At home he will be on meds all summer. She feels the Trazodone works well. He is seeing Dr. Cooper and they are working on getting along with his brother. He gets rewards, both do, and things are definitely much better at home. Mother said because things are so much better with being home she is not going to work at [employer] any longer. She is going to start her own day care and take child development classes. His other problems have been some severe anal itching. He denies any blood on the toiletpaper. I have urged her to have that checked out at the clinic. OBJECTIVE: Cooperative young man in no distress. The head is normocephalic. TM???s are clear. Pupilsare equal, round and react to light. Extraocular movements are conjugate. No nystagmus. Fundi are benign. Nose is patent. Pharynx is clear. Neck is supple. Thyroid is normal. Chest is clear to auscultation and percussion. Cardiovascular ??? Normal sinus rhythm without murmurs. Abdomen is soft, nontender, no HSM or masses noted. Vascular ??? femorals equal brachials. Skin is clear. Genitalia ??? Exam deferred. Extremities ??? Bones and joints are within normal limits. Neurological examination ??? Cranial nerves II-XII are intact. Deep tendon reflexes are 1+ at the biceps, 1+ at the brachioradialis, 2+ at the knees, 1+ at the ankles and symmetrical. No clonus is present. Toes are down-going. Muscle strength and sensation are without difficulty. There is no past pointing present. There are fine tremors of outstretched hands. ASSESSMENT: 1) ADHD who is doing better at this point. PLAN: Concerta 54 mg one daily #30. Trazodone 50 mg one at bedtime as needed for sleep. Mother returned a prescription today dated that is destroyed. Visit today of 25 minutes, 20 minutes of counseling time. RNS:katya D: 03-24-05 Brennan Pat M.D. T: 03-25-05 documented in this encounter Plan of Treatment Not on filedocumented as of this encounter Visit Diagnoses Diagnosis Attention deficit disorder with hyperact ivity(314.01) - Primary Attention deficit disorder with hyperact ivity documented in this encounter Care Teams Analytics Leader Relationship Specialty Start Date End Date Mariely Osuna MD PCP - General 06/26/04 09/25/12 [facility] Wing [address] [place] [address] [address] [place] [address] Ruperto Rey, PhD PCP - Mental Health/Behavioral 12/21/00 XXX NO INFO FOUND XXX Medicine documented as of this encounter
--- OUTSIDE RECORDS SUMMARY | 2022-09-25 10:57 | XMS_ITS | Encounter Summary ---
:1990 Author Organization [facility] Address [address] [place] [address] Care Team Providers Name Role Phone Mariely Osuna MD Primary Care Provider Ruperto Rey PhD Unavailable Unavailable Reason for Visit Reason Comments A.Caron.H.Caron Encounter Details Date Type Department Care Team Description 11/18/2004 [facility] JONATHON PatI CIT W HYPERACT ; System in [place] MD Brennan SLEEP DISTURBANCE NOS Psychology [address] [place] [address] [place] [address] [phone] Social History Tobacco Use Types Packs/Day Years Used Date Smoking Tobacco: Never Comments: no 2nd hand smoke in the house Alcohol Use Standard Drinks/Week Comments Not Asked 0 (1 standard drink = 0.6 oz pure alcoho l) Sex Assigned at Date Recorded Not on file documented as of this encounter Last Filed Vital Signs Vital Sign Reading Time Taken Comments Blood Pressure 87/56 11/18/2004 2:38 PM FUR POLISHER Pulse 88 11/18/2004 2:38 PM FUR POLISHER Temperature - - Respiratory Rate - - Oxygen Saturation - - Inhaled Oxygen Concentration - - Weight 32.4 kg (71 lb 8 oz) 11/18/2004 2:38 PM FUR POLISHER Height 144.1 cm (4' 8.75) 11/18/2004 2:38 PM FUR POLISHER Body Mass Index 15.61 11/18/2004 2:38 PM FUR POLISHER Body Mass Index Percentile 10.68 % 11/18/2004 2:38 PM CS T Growth Chart: [facility] (Boys, 2-20 Years) documented in this encounter Progress Notes 11/18/2004 2:30 PM FUR POLISHER Addended by: JAIMIE LOPEZ on: 11/24/2004,7:46 AM Comment: brim blocker Modules accepted: Shantanu galicia Notes This encounter has been dictated. John [id number] SUBJECTIVE: Letty beckett is now 14 years old and in 6th grade at [employer]. He is brought in by his mother today for reevaluation of Attention Deficit and his sleep disorder. Since last seen in July he has gained 3 ?? pounds and ?? inch. He continues on Concerta 36 mg a day and Trazodone 50 mg at bedtime . It is very unclear today what his grades are. Mother was trying to express them to me, but she h ad just had a gastroscope done and was not able to tell what they were. Apparently he has been gettin g an F in [employer] and a couple of D's. She doesn't know what subject. Now he is getting lower grades atmid-quarters, but maybe the F has gone to a D. His main problem is work refusal and his grades ar e down. They have an IEP meeting coming up on the . The patient has a real power struggle going on with his teacher Josselyn Palmer and mother is now entering into that. She is not at all happy with destinlaura some things have been handled at school. He is in a resource room as part of his IEP and he ge ts [employer] LD. Today she wanted to be referred to either [facility] or the [facility] ra workup of Royal's problems. We had a long discussion today about what those problems are. She says he is being treated for learning disabilities at school and that he has deficits in short memory, bu t she doesn't know how to fix that. We talked about that it was not a medication response of event. If she had questions about a specific learning disability that the school is not adequately diagnosing then a referral would be warranted. He is also having a lot of behavioral issues at school and thishas been ongoing for a number of years with this. Royal is very manipulative and controls behaviors ve ry well with bad behavior. She is not sure if they are going to talk about EBD programming. She says she has questions about his meds, that he is bouncing constantly, not paying attention, refusing towork and throwing his papers, but he has not had any detentions at school. She feels other teachers a re dealing with it, but not his field horticultural specialty grower and she is wondering about the [facility]. I have urged her to discuss all of these issues with the school when they have thei r meeting and that we should get back together after we see the IEP. At home things are really bothe ring her. She can't keep him calm at all. He is bouncing constantly,yelling at the rest of them. Elias ething gets started and escalates all night long at home and Royal can control that situation. The las t time she put him in the car and took him to the hospital. They talked in the parking lot for about 45 minutes and he settled down. She said when he gets angry he just doesn't care no matter what she tries to restrict. I did suggest to her that there are people that work in anger management, but that Royal needs to make an effort and when he is met with our psychologist before he has not wanted to ta lk to them. Mother's new job is working out well. She is soon going to be on four days a week/ten h ours a day so she will have more time at home. She feels the kids have done well and are adapting to it. She leaves about the time they go to school and she is usually home by 5:30. Her significant shira diaz is there,but she said there is a lot of fighting at home. She is John Colbert???.. being worked up for chronic gastritis and there is a question whether this is just due to the stress of everything that is going on. She feels her relationship is strong at home and she may have to hav e her gallbladder out. I asked her about his mention last time of things he was going to do and she said that he has talkedabout it a couple of times, but it is only when things are really deteriorate d that he makes that threat. She would like to go back to work as a family with Tiara Aguiar and meme pacheco like a referral.I told her we would do that if the patient was covered by her insurance. We diane ked about possibly increasing his dosage. When we did it he did seem quieter and calmer on it at firs t. When he is not on medicines he fights, screams and yells so we will move him to 54 today and mail that out at the next mailing. She understands she will have to let us know how that is working. Our plan will be to see him with his IEP in one month. In terms of his sleep he apparently falls asleep fine. His sibling does get up between 1:00 and 3:00in the morning and then Royal gets up. It seems m ost probable that the sib is the one who is waking Royal. Overall things appear very dysfunctional at this point right now and we will proceed with the psychology referral if allowed and have our meetin g as noted above. Interestingly, Royal today was very hyperactive, rolling about the room, hitting th e caballero, hitting everything and as we continued to ignore him he eventually just stopped and went in the chair and read a magazine. Many of his behaviors do appear to be attention getting. ASSESSMENT: 1) ADHD. 2) Behavioral problems. PLAN: 1.Concerta 54 mg one daily #30 and that is entered into the computer. 2.Recheck in one month. 3.Visit today of 50 minutes, entire time spent in counseling shashank vanceJaciel RNS:katya D: [id number] Pat M.D. T: 11-20-04 documented in this encounter Plan of Treatment Not on filedocumented as of this encounter Visit Diagnoses Diagnosis ATTN DEFICIT W HYPERACT Attention deficit disorder with hyperact ivity SLEEP DISTURBANCE NOS Sleep disturbance, unspecified documented in this encounter Care Teams Component Prep Operator Relationship Specialty Start Date End Date Mariely Osuna MD PCP - General 06/26/04 09/25/12 [facility] [address] [facility] [address] [place] [address] Ruperto Rey, PhD PCP - Mental Health/Behavioral 12/21/00 XXX NO INFO FOUND XXX Medicine documented as of this encounter
--- OUTSIDE RECORDS SUMMARY | 2022-09-25 10:57 | XMS_ITS | Encounter Summary ---
:1990 Author Organization [facility] Address [address] [place] [address] Care Team Providers Name Role Phone Mariely Osuna MD Primary Care Provider Ruperto Rey PhD Unavailable Unavailable Reason for Visit Reason Comments RECHECK hosp. follow-up for pneumoni a,just finished ceptra Encounter Details Date Type Department Care Team Description 06/26/2004 Office Visit [facility] Mariely Osuna PNEU MONIA, ORGANISM System in [place] [facility] (Primary Dx) Pediatrics [facility] [address] [place] [address] [address] [address] [place], [place] [phone] [id number] Social History Tobacco Use Types Packs/Day Years [...] Pressure - - Pulse - - Temperature 36.2 ??C (97.1 ??F) 06/26/2004 3:20 PM CDT Respiratory Rate - - Oxygen Saturation - - Inhaled Oxygen Concentration - - Weight 29.7 kg (65 lb 6 oz) 06/26/2004 3:20 PM CDT Height - - Body Mass Index - - documented in this encounter Progress Notes 06/26/2004 3:20 PM CDT Addended by: BRENDEN MALDONADO on: 07/04/2004,1:48 PM Comment: Data Miner. Modules accepted: Progress Notes SUBJECTIVE: Royal is an 13-year-old who is in for a hospital follow up for his pneum onia. He just completed his last day of Ceftin antibiotic therapy for his right upper lobe pneumonia . He did have spinal tap studies for arborvirus and mosquito- borne illnesses were done. Those were all normal. He was back in following his lumbar puncture with severe headache and backache. That la sted about three total days andhe has not had any headache at all for the last few days. He's had n o fever. He has a very minimal cough. His appetite is back to normal. No difficulty except for dif ficulty getting him to take the liquid prescribed medication. ON PHYSICAL EXAM: He's alert, coope rative. EYES: Conjunctivae are clear. EARS: TMs are translucent. OROPHARYNX: No tonsillar erythema or exudate. NECK: Supple. CHEST: Good air entry, clear to auscultation. No E to A changes or bron chial breath sounds. CARDIOVASCULAR: Regular rate rhythm. No murmur. X-RAYS: Chest x-ray is obt ained which shows good aeration of the right upper lobe with marked clearing of the previous infiltra te perhaps slight increased markings still in the right upper lobe. ASSESSMENT: Pneumonia, resolve d. PLAN: No further antibiotic treatment necessary. Call or return if he has recurrence of symptom s off antibiotics or other concerns. Mariely Osuna M.D./brenden T: documented in this encounter Nursing Notes 06/26/2004 3:20 PM CDT >> DAVE BLACKBURN 06/26/2004 3:16 pm Pain Questionnaire: Is your visit today because of Pain? NO documented in this encounter Plan of Treatment Not on filedocumented as of this encounter Procedures Procedure Name Priority Date/Time Associated Diagnosis Comme nts HC CHEST TWO VIEWS, Routine 06/26/2004 Pneumonia, Organism R esults for this FRONT/LAT Nos procedure are i n the results section . documented in this encounter Results CHEST X-RAY 2 VW (06/26/2004) Anatomical Region Laterality Modality Other Narrative 06/26/2004 CHEST TWO VIEWS: REASON FOR EXAM: Follow up pneumonia. FINDINGS: ??Substantial clearing right u pper lobe consolidating infiltrates shown on recen t previous films. ?? Some streaky infiltrate in the right upp er lobe persists at this time. ??There is no evidence of a n ew abnormality.. Christofer Rivera M.D./grace D: ??06/27/2004 T: ??06/27/2004 Mariely Osuna MD GENERAL IMAGING documented in this encounter Visit Diagnoses Diagnosis Pneumonia, organism unspecified(486) - P rimary Pneumonia, organism unspecified documented in this encounter Care Teams Mule Tender Relationship Specialty Start Date End Date Mariely Osuna MD PCP - General 06/26/04 09/25/12 [facility] [address] [place] [address] [address] [place] [address] Ruperto Rey, PhD PCP - Mental Health/Behavioral 12/21/00 XXX NO INFO FOUND XXX Medicine documented as of this encounter
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
--- OUTSIDE RECORDS SUMMARY | 2022-09-25 10:57 | XMS_ITS | Encounter Summary ---
:1990 Author Organization [facility] Address [address] [facility] [place] [address] Care Team Providers Name Role Phone Cora Holliday PA-C Primary Care Provider [phone] Ruperto Rey PhD Unavailable Unavailable Reason for Visit Reason Comments Patient Request Encounter Details Date Type Department Care Team Description 01/31/2004 Telephone [facility] Caron Luevano Patient Request Wing in [address] [address] Social History Tobacco Use Types Packs/Day Years Used Date Smoking Tobacco: Never Comments: no 2nd hand smoke in the house Alcohol Use Standard Drinks/Week Comments Not Asked 0 (1 standard drink = 0.6 oz pure alcoho l) Sex Assigned at Date Recorded Not on file documented as of this encounter Miscellaneous Notes Telephone Encounter - 01/31/2004 11:59 PM INFORMATICS SCIENTIST >> LEO FRANKLIN Mon Feb 04, 2004 10:00 AM This encounter has been dictated. >> LEO FRANKLIN Fri Feb 01, 2004 2:07 PM na >> VIRIDIANA ARNOLD [facility] Jan 31, 2004 4:12 PM >> CALL RECEIVED. Contact: Penny Gavin @ [phone] or [phone] Home Things are not going well with Royal and Penny needs to talk to you documented in this encounter Plan of Treatment Not on filedocumented as of this encounter Visit Diagnoses Not on filedocumented in this encounter Care Teams Destaticizer Feeder Relationship Specialty Start Date End Date Cora Holliday PA-C PCP - General 12/21/00 06/25/04 [facility] [place] [address] [facility] [address] [place], [place] [id number] Ruperto Rey, PhD PCP - Mental Health/Behavioral 12/21/00 XXX NO INFO FOUND XXX Medicine documented as of this encounter
--- OUTSIDE RECORDS SUMMARY | 2022-09-25 10:57 | XMS_ITS | Encounter Summary ---
:1990 Author Organization [facility] Address [address] [place] [address] Care Team Providers Name Role Phone Cora Holliday PA-C Primary Care Provider [phone] Ruperto Rey PhD Unavailable Unavailable Reason for Visit Reason Comments Patient Request Encounter Details Date Type Department Care Team Description 04/24/2004 Telephone [facility] in [place] Chavezela Patient Request [facility] [address] [facility] [place] [address] [facility] [phone] Social History Tobacco Use Types Packs/Day Years Used Date Smoking Tobacco: Never Comments: no 2nd hand smoke in the house Alcohol Use Standard Drinks/Week Comments Not Asked 0 (1 standard drink = 0.6 oz pure alcoho l) Sex Assigned at Date Recorded Not on file documented as of this encounter Miscellaneous Notes Telephone Encounter - 04/24/2004 11:59 PM CDT >> LEO FRANKLIN Bhumi April 24, 2004 1:51 PM done >> PRISCILA LIN Bhumi April 24, 2004 1:22 PM >> CALL RECEIVED. Contact: Lilian Gavin @ [phone] Lilian did not receive Royal' RX this month and she would like to come and pick one up today. He is on Concerta 36 1qd #30. Thanks! documented in this encounter Plan of Treatment Not on filedocumented as of this encounter Visit Diagnoses Not on filedocumented in this encounter Care Teams Certified Hearing Instrument Dispenser Relationship Specialty Start Date End Date Cora Holliday PA-C PCP - General 12/21/00 06/25/04 [facility] [address] [facility] [address] [place] [address] Ruperto Rey, PhD PCP - Mental Health/Behavioral 12/21/00 XXX NO INFO FOUND XXX Medicine documented as of this encounter
--- OUTSIDE RECORDS SUMMARY | 2022-09-25 10:57 | XMS_ITS | Encounter Summary ---
:1990 Author Organization [facility] Address [address] [place] [address] Care Team Providers Name Role Phone Mariely Osuna MD Primary Care Provider Ruperto Rey PhD Unavailable Unavailable Reason for Visit Reason Onset Date Comments Medication Problem 05/12/[address] Champagne thi s am for positive strep. Will not take pills.Requests Encounter Details Date Type Department Care Team Description 05/12/2005 Refill [facility] Carly Hart Medication Problem (seen in [facility] by Dr. Champagne this am for [address] [place] [address] take pills.Requests) [phone] Social History Tobacco Use Types Packs/Day Years Used Date Smoking Tobacco: Never Comments: no 2nd hand smoke in the house Alcohol Use Standard Drinks/Week Comments Not Asked 0 (1 standard drink = 0.6 oz pure alcoho l) Sex Assigned at Date Recorded Not on file documented as of this encounter Miscellaneous Notes Telephone Encounter - Monster Bazan MD - 05/12/2005 5:00 PM CDT get injection in urgent care, Rx written 08/01 RONNA hale Telephone Encounter - Carly Hart - 05/12/2005 2:59 PM CDT order for injection that she could bring him into urgent care tonight to get. If you will write RX we would take it over to urgent care nurses. Thanks. documented in this encounter Plan of Treatment Not on filedocumented as of this encounter Visit Diagnoses Not on filedocumented in this encounter Care Teams Heel Top Lift Splitter Relationship Specialty Start Date End Date Mariely Osuna MD PCP - General 06/26/04 09/25/12 [facility] [address] [place] [address] [address] [place] [address] Ruperto Rey, PhD PCP - Mental Health/Behavioral 12/21/00 XXX NO INFO FOUND XXX Medicine documented as of this encounter
--- OUTSIDE RECORDS SUMMARY | 2022-09-25 10:57 | XMS_ITS | Encounter Summary ---
:1990 Author Organization [facility] Address [address] [place] [address] Care Team Providers Name Role Phone Mariely Osuna MD Primary Care Provider Ruperto Rey PhD Unavailable Unavailable Reason for Visit Reason Comments Hives Encounter Details Date Type Department Care Team Description 11/04/2004 Office Visit [facility] Monster Montano MD in [place] [facility] [address] [facility] [address] [place] [address] [place] [address] [phone] (Wo rk) Social History Tobacco Use Types [...] Sign Reading Time Taken Comments Blood Pressure 116/72 11/04/2004 6:15 PM CLAIMS COORDINATOR Pulse 100 11/04/2004 6:15 PM CLAIMS COORDINATOR Temperature 36.8 ??C (98.2 ??F) 11/04/2004 6:15 PM CLAIMS COORDINATOR Respiratory Rate - - Oxygen Saturation - - Inhaled Oxygen Concentration - - Weight 30.8 kg (68 lb) 11/04/2004 6:15 PM CLAIMS COORDINATOR Height - - Body Mass Index - - documented in this encounter Progress Notes 11/04/2004 6:15 PM CLAIMS COORDINATOR SUBJECTIVE: The patient has had a cough for the past 2 weeks and was put on Zithromax. Today he devel oped hiveson his back and chest. He is still coughing, is feeling more kind of itchy and a little b it dizzy. No fever. OBJECTIVE: The patient is playing in the room. He is somewhat hyperactive, bu t in no acute distress. HEENT: Both tympanic membranes are clear. Nares show moderate congestion. Or opharynx is pink and moist. Neck is supple. Lungs are completely clear to auscultation. Heart: Regula r rate and rhythm, normal S1, S2 without murmur. Skin exam shows he has some scattered red blotches a cross his face, back and abdomen. Chest x-ray is clear. ASSESSMENT: 1. Hives likely secondary to Zithromax. 2. Bronchitis. PLAN: Will stop Zithromax. Start Augmentin 500 by mouth twice daily for 10 days. Atarax 10 milligrams 1-2 every 6 hours as needed for itching. Call if symptoms persist o r worsen. Monster Bazan M.D./lawrence documented in this encounter Nursing Notes 11/04/2004 6:15 PM CST >> [facility] [place] (YARA) 11/04/2004 6:29 pm Pain Questionnaire: Is your visit today because of Pain? NO documented in this encounter Plan of Treatment Not on filedocumented as of this encounter Procedures Procedure Name Priority Date/Time Associated Diagnosis Comme [facility] CHEST TWO VIEWS, Routine 11/04/2004 Results for this FRONT/LAT procedure are i n the results section . documented in this encounter Results CHEST X-RAY 2 VW (11/04/2004) Anatomical Region Laterality Modality Other Narrative 11/04/2004 PA AND LATERAL CHEST: ??(Comparison June 26) HISTORY: ??Cough. Normal size of the heart and vessels. ?? Clear lungs. ?? Minimal scoliosis. ??No pleural effusion . ??The right upper lobe is now clear. Regan Thompson M.D./anthony D: ??11/05/2004 T: ??11/05/2004 ?? Monster Bazan MD GENERAL IMAGING documented in this encounter Visit Diagnoses Not on filedocumented in this encounter Care Teams Store Director Relationship Specialty Start Date End Date Mariely Osuna MD PCP - General 06/26/04 09/25/12 [facility] [place] [address] [place] [address] Ruperto Rey, PhD PCP - Mental Health/Behavioral 12/21/00 XXX NO INFO FOUND XXX Medicine documented as of this encounter
--- OUTSIDE RECORDS SUMMARY | 2022-09-25 10:57 | XMS_ITS | Encounter Summary ---
:1990 Author Organization [facility] Address [address] [place] [address] Care Team Providers Name Role Phone Cora Holliday PA-C Primary Care Provider [phone] Ruperto Rey PhD Unavailable Unavailable Encounter Details Date Type Department Care Team Description 03/12/2004 Wood Fence Installer [facility] Olya Pérez RN in [facility] XXX RETIRED [place] [address] [place] [address] [place] [address] [phone] (Wo rk) Social History Tobacco Use Types Packs/Day Years Used Date Smoking Tobacco: Never Comments: no 2nd hand smoke in the house Alcohol Use Standard Drinks/Week Comments Not Asked 0 (1 standard drink = 0.6 oz pure alcoho l) Sex Assigned at Date Recorded Not on file documented as of this encounter Progress Notes 03/12/2004 11:59 PM CDT [id number] ASHLEY CASE NOTE: PATIENT OF DR. FRANKLIN. The patient failed an appointment . His mother has subsequently called and scheduled an appointment.Today I offer a one month refill for Adderall XR 20 mg with instructions to take one daily. I provide 30. JKS:katya D: 70-22-57JpxvPerla Pérez RN, TONG CARRIER, HEADING REPAIRER, CCJS T: 03-17-04 documented in this encounter Plan of Treatment Not on filedocumented as of this encounter Visit Diagnoses Not on filedocumented in this encounter Care Teams Self Propelled Hot Mix Roller Operator Relationship Specialty Start Date End Date Cora oHlliday PA-C PCP - General 12/21/00 06/25/04 [facility] [address] [facility] [address] [place] [address] Ruperto Rey, PhD PCP - Mental Health/Behavioral 12/21/00 XXX NO INFO FOUND XXX Medicine documented as of this encounter
--- OUTSIDE RECORDS SUMMARY | 2022-09-25 10:57 | XMS_ITS | Encounter Summary ---
:1990 Author Organization [place] Address [address] [facility] [place] [address] Care Team Providers Name Role Phone Mariely Osuna MD Primary Care Provider Cora Holliday PA-C Primary Care Provider [phone] Ruperto Rey PhD Unavailable Unavailable Reason for Visit Reason Comments Back Pain Encounter Details Date Type Department Care Team Description 06/18/2004 Office Visit [facility] Wisam Browning MD in [place] [facility] are [address] [address] [place] [address] [phone] (Wo rk) Social History Tobacco Use Types [...] Sign Reading Time Taken Comments Blood Pressure 109/85 06/18/2004 6:45 PM CDT Pulse 97 06/18/2004 6:45 PM CDT Temperature 36.1 ??C (97 ??F) 06/18/2004 6:45 PM CDT Respiratory Rate - - Oxygen Saturation - - Inhaled Oxygen Concentration - - Weight 28.6 kg (63 lb) 06/18/2004 6:45 PM CDT Height - - Body Mass Index - - documented in this encounter Progress Notes 06/18/2004 6:45 PM CDT Mother says he was released at 2:00 p.m. from the hospital diagnosed with pneumonia. She said he alee an antibiotic but did not bring it with and he is not quite sure what he is on. The last 2 1/2 hours he has been complaining of lower back pain and said he had a spinal tap. Vital signs discussed. She said his weight is about 63 pounds. Thoracic and lumbar back shows no erythema, swelling or asy mmetry. He points to discomfort in the L3-5 area. Lungs are clear. Percussion normal. Heart 92 re gular. [place] conjunctiva and white sclera. No rash or vesicles. Reviewed information in [employer] that wa s available from this hospitalization including June 17 white blood count 29,700 and hemoglobin 12.5 along with the 2 chest x-ray readings by the radiologist. Mother had a good understanding of this. Showed her the urinalysis results tonight along with CBC. He initially was yelling and screaming t he first 2 times I saw him tonight but now he was lying on his right side with his eyes open and feel ing fine. Talked about alternatives and mother thought maybe we could give him a shot of Demerol or morphine but I thought that might rile him up again and after further discussion will put him on nate um 1 mg every 6 hours p.r.n. 5 tablets prescribed. Follow up per previous post hospitalization plan. Wisam Browning M.D./grace documented in this encounter Nursing Notes 06/18/2004 6:45 PM CDT >> LEA MCPHERSON 06/18/2004 7:00 pm Pain Questionnaire: Is your visit today because of Pain? YES. Where is the pain located? back and chest. How would you describe the pain? sharp. How long have you had the pain? 2 day(s). On a scale of 1-10 with 10 the worst - how would you rate your pain right now? 10. What have you been using to alleviate the pain? OTC Ibuprofen Pamphlet given to patient? yes. documented in this encounter Plan of Treatment Not on filedocumented as of this encounter Procedures Procedure Name Priority Date/Time Associated Diagnosis Comme nts HCL UA MICRO IF Routine 06/18/2004 7:14 PM Result s for this POSITIVE CDT procedure are i n the results section. CL AFF CBC WITH Routine 06/18/2004 7:02 PM Result s for this PLATELETS, DIFF CDT procedure ar e in the results section. HCL SED RATE (ESR) Routine 06/18/2004 7:02 PM Res ults for this CDT procedure are i n the results section. documented in this encounter Results UA MICRO IF POSITIVE (06/18/2004 7:14 PM CDT) [facility] gist Method Time Signature Color Urine Yellow [facility] Appearance Urine Clear [facility] Glucose Urine Negative NEG mg/dL [facility] Bilirubin Urine Negative NEG [facility] Ketones Urine Negative NEG mg/dL [facility] Specific [place] 1.020 1.001 - [facility] Urine 1.035 [facility] Blood Urine Negative NEG [facility] pH Urine 6.5 5.0 - 7.0 [facility] pH [facility] Protein Albumin Negative NEG mg/dL [facility] Urine [facility] Urobilinogen 1.0 0.2 - 1.0 [facility] Urine EU/dL [facility] Nitrite Urine Negative NEG [facility] Leukocyte Negative NEG [facility] Esterase Urine [facility] Source Midstream [facility] Urine [facility] Specimen Anatomical Collection Method Collection Time Receive d Time (Source) Location / / Volume Laterality 06/18/2004 7:14 PM 4 7:19 CDT PM CDT Fabiola Box MD LABORATORY Performing Organization Address City/State/ZIP Code Phon e Number [facility] [address] (ABNORMAL) SED RATE, AUTO (06/18/2004 7:02 PM CDT) athologist Signature Sed Rate 73 (H) 0 - 15 mm/h [facility] Specimen Anatomical Collection Method Collection Time Receive d Time (Source) Location / / Volume Laterality 06/18/2004 7:02 PM 4 7:07 CDT PM CDT Fabiola Box MD LABORATORY Performing Organization Address City/State/ZIP Code Phon e Number [facility] [address] (ABNORMAL) CBC WITH PLATELETS, DIFF (06/18/2004 7:02 PM CDT) Component Value Ref Test Analysis Performed At [facility] Range Method Time Signature WBC 17.0 (H) 4.0 - [facility] 11.0 [facility] 10e9/L RBC Count 4.20 3.7 - [facility] 5.3 [facility] 10e12/L Hemoglobin 11.7 11.7 - [facility] 15.7 [facility] g/dL Hematocrit 34.3 (L) 40.0 - [facility] 53.0 % [facility] MCV 82 77 - 100 [facility] fl [facility] MCH 28.0 26.5 - [facility] 33.0 pg [facility] MCHC 34.3 32.0 - [facility] 36.0 [facility] g/dL RDW 14.1 10.0 - [facility] 15.0 % [facility] Platelet Count 277 150 - [facility] 450 [facility] 10e9/L % Neutrophils 50 32 - 64 [facility] % [facility] % Lymphocytes 8 (L) 26 - 50 [facility] % [facility] % Monocytes 2 0 - 12 % [facility] % Eosinophils 2 0 - 6 % [facility] % Band 38 % [facility] Absolute 8.5 (H) 1.3 - [facility] Neutrophil 7.0 [facility] 10e9/L Absolute 1.4 1.0 - [facility] Lymphocytes 5.8 [facility] 10e9/L Absolute 0.3 0.0 - [facility] Monocytes 1.3 [facility] 10e9/L Absolute 0.3 0.0 - [facility] Eosinophils 0.7 [facility] 10e9/L Absolute Bands 6.5 10e9/L [facility] RBC Morphology Normal [facility] Platelet Normal [facility] Estimate [facility] Diff Method Manual [facility] Differential [facility] Specimen Anatomical Collection Method Collection Time Receive d Time (Source) Location / / Volume Laterality 06/18/2004 7:02 PM 4 7:07 CDT PM CDT Fabiola Box MD LABORATORY Performing Organization Address City/State/ZIP Code Phon e Number [facility] [address] documented in this encounter Visit Diagnoses Not on filedocumented in this encounter Care Teams Instructional Technology Instructor Relationship Specialty Start Date End Date Mariely sOuna MD PCP - General 06/26/04 09/25/12 [facility] [place] [address] [place] [address] Cora Holliday PA-C PCP - General 12/21/00 06/25/04 [facility] [place] [address] [place] [address] Ruperto Rey, PhD PCP - Mental Health/Behavioral 12/21/00 XXX NO INFO FOUND XXX Medicine documented as of this encounter
--- OUTSIDE RECORDS SUMMARY | 2022-09-25 10:57 | XMS_ITS | Encounter Summary ---
:1990 Author Organization [place] Address [address] [place] [address] Care Team Providers Name Role Phone Cora Holliday PA-C Primary Care Provider [phone] Ruperto Rey PhD Unavailable Unavailable Reason for Visit Reason Comments Abstract Encounter Details Date Type Department Care Team Description 06/23/[address] [facility] [place] Damian Weinberg Medical Records [address] [place] [address] Social History Tobacco Use Types Packs/Day [...] on filedocumented in this encounter Care Teams Naval Engineer Relationship Specialty Start Date End Date Cora Holliday PA-C PCP - General 12/21/00 06/25/04 [facility] [address] [facility] [address] [place] [address] Ruperto Rey, PhD PCP - Mental Health/Behavioral 12/21/00 XXX NO INFO FOUND XXX Medicine documented as of this encounter
--- OUTSIDE RECORDS SUMMARY | 2022-09-25 10:57 | XMS_ITS | Encounter Summary ---
:1990 Author Organization [place] Address [address] [place] [address] Care Team Providers Name Role Phone Cora Holliday PA-C Primary Care Provider [phone] Ruperto Rey PhD Unavailable Unavailable Reason for Visit Reason Comments A.DemetriusH.Caron Encounter Details Date Type Department Care Team Description 01/24/2004 [facility] JONATHON Pat CIT W HYPERACT; System in [place] MD Brennan SLEEP DISTURBANCE NOS; Psychology [address] [place] [address] [place] [address] [place] [address] [phone] Social History Tobacco Use Types Packs/Day Years Used Date Smoking Tobacco: Never Comments: no 2nd hand smoke in the house Alcohol Use Standard Drinks/Week Comments Not Asked 0 (1 standard drink = 0.6 oz pure alcoho l) Sex Assigned at Date Recorded Not on file documented as of this encounter Last Filed Vital Signs Vital Sign Reading Time Taken Comments Blood Pressure 106/66 01/24/2004 3:30 PM PUBLIC WORKS COMMISSIONER Pulse 96 01/24/2004 3:30 PM PUBLIC WORKS COMMISSIONER Temperature - - Respiratory Rate - - Oxygen Saturation - - Inhaled Oxygen Concentration - - Weight 28.3 kg (62 lb 8 oz) 01/24/2004 3:30 PM PUBLIC WORKS COMMISSIONER Height 139.1 cm (4' 6.75) 01/24/2004 3:30 PM PUBLIC WORKS COMMISSIONER Body Mass Index 14.66 01/24/2004 3:30 PM PUBLIC WORKS COMMISSIONER Body Mass Index Percentile 4.69 % 01/24/2004 3:30 PM CS T Growth Chart: CDC (Boys, 2-20 Years) documented in this encounter Progress Notes 01/24/2004 3:30 PM PUBLIC WORKS COMMISSIONER Addended by: JAIMIE LOPEZ on: 01/29/2004,9:24 AM Comment: dispatch lead Modules accepted: Shantanu galicia Notes This encounter has been dictated. John [id number] SUBJECTIVE: Letty beckett is 13 years old and in 5th grade at [employer]. He has Mrs. Wong andMrs. Martinez as his teachers. He is brought in by his mother today for reevaluation of Attention Deficit. Since last se en in June he has gained 4 ?? pounds and 1 inch. The patient has been on Adderall 30 XR and Trazodon e 50 mg at bedtime. The teacher called one day and when he missed his medicines the teachers couldn' t believe it. He was outgoing, happy, but then he couldn't sit still. She said on the medicines he i s crabby and irritable, but then he can focus. He acts shy when he is on the medicine. His grades are fine. She doesn't have them because they have moved and they are packed. She said sometimes he just doesn't try very hard. Mrs. Martinez he has for reading and math. The patient has an attitude latel y. He has been fighting with his brother a lot. The 50 works well.When she went to 25 it wasn't near as successful. He has also been having a lot of headaches. She says they are in the frontal area. He won't talk about them. He never has any vomiting. They have used some Advil and it seems to work. He doesn't want to sleep. There is a negative family history of migraines. They have been doing play th erapy at home. There have been no tics to speak of. Occasionally he has a cough or snort, then that d isappears and then something else happens. Steven Ovalle stillis his Y pal. They have moved down t o her father's home on [address], plan on selling it and then getting another home. We discus sed options today including adding Strattera. I think at the current time we will try to knock him d own to 20 and see if the school notices any difference on that and see what his headaches do. If ther e is not much change we will add Strattera with the idea of taking him off of the Adderall. OBJECTIV E: Royal cooperated for me today, but was extremely unhappy about the whole thing. Originally would no t have his height, weight and blood pressure or pulse taken. The head is normocephalic. TM's are yvonne r. Pupils are equal, round and react to light. Extraocular movements are conjugate. No nystagmus. Fundi are benign. Nose is patent. Pharynx is clear. Neck is supple. Thyroid is normal. Chestis cl ear to auscultation and percussion. Cardiovascular - Normal sinus rhythm without murmurs. Abdomen i s soft, nontender, no HSM or masses noted. Vascular - femorals equal brachials. Skin is clear. Belia kathy - Exam deferred. Extremities - Bones and joints are within normal limits. Neurological examina tion - Cranial nerves II-XII are intact. Deep tendon reflexes are 1+ at the biceps, 1+ at the brachi oradialis, 2+ at the knees, 1+ at the ankles and symmetrical. No clonus is present. Toes are down-g oing. Muscle strength and sensation are without difficulty. There is no past pointing present. Th ere are fine tremors of outstretched hands. ASSESSMENT: 1) ADHD who is having trouble with headaches and mood. I have suggested if the fighting is a major issue the mother might want to consider in ho me therapy through [facility]. John Colbert? PLAN: 1. Adderall 20 XR one daily #3 0. 2. Trazodone 50 mg one at bedtime #30 with five refills. 3. Recheck in one month. 4. Visit today o f 25 minutes, 20 minutes of counseling time. RNS:katya D: [id number] Pat M.D. T: 01-28-04 documented in this encounter Plan of Treatment Not on filedocumented as of this encounter Visit Diagnoses Diagnosis Attention deficit disorder with hyperact ivity(314.01) Attention deficit disorder with hyperact ivity Sleep disturbance, unspecified Headache(784.0) Headache documented in this encounter Care Teams Race Car Mechanic Relationship Specialty Start Date End Date Cora Holliday PA-C PCP - General 12/21/00 06/25/04 [facility] Marty Novak [address] [facility] [address] [place] [place] [address] Ruperto Rey, PhD PCP - Mental Health/Behavioral 12/21/00 XXX NO INFO FOUND XXX Medicine documented as of this encounter
--- OUTSIDE RECORDS SUMMARY | 2022-09-25 10:57 | XMS_ITS | Encounter Summary ---
:1990 Author Organization [place] Address [address] [place] [address] Care Team Providers Name Role Phone Mariely Osuna MD Primary Care Provider Ruperto Rey PhD Unavailable Unavailable Reason for Visit Reason Comments Patient Request Encounter Details Date Type Department Care Team Description 09/01/2004 Telephone [facility] in [place] Patient Request Wing Psychology [address] [facility] [place] [address] [facility] [phone] Social History Tobacco Use Types Packs/Day Years Used Date Smoking Tobacco: Never Comments: no 2nd hand smoke in the house Alcohol Use Standard Drinks/Week Comments Not Asked 0 (1 standard drink = 0.6 oz pure alcoho l) Sex Assigned at Date Recorded Not on file documented as of this encounter Miscellaneous Notes Telephone Encounter - 09/01/2004 11:59 PM CDT >> PRISCILA CEBALLOS [facility] Sep 03, 2004 1:33 PM Penny called and the meeting with the teachers went well, the one he is having the problem with is going to try to work it out and just back off a little. She thought you would want to know it's not a med problem.Thanks! >> PRICSILA CEBALLOS [facility] 2004 2:06 PM I spoke with Penny today and we do not need to send the forms to school for Royal. She is having a meeting today with all of them. I did tell her to please call us so we know that things are ok for Royal @ school. >> LEO FRANKLIN WedSep 01, 2004 8:58 AM ok, please send >> PRISCILA CEBALLOS WedSep 01, 2004 7:40 AM >> CALL RECEIVED. Contact: Penny Francis is wondering if we could send Rosette forms to the teachers for Royal. He got in trouble again b ut it is only with one teacher and always the same teacher. She is wondering if it isn't a personalconflict with the two of them.She said we could send them to Chrissy Palmer the sales department clerk at his school.Thanks! documented in this encounter Plan of Treatment Not on filedocumented as of this encounter Visit Diagnoses Not on filedocumented in this encounter Care Teams Exploration Geologist Relationship Specialty Start Date End Date Mariely Osuna MD PCP - General 06/26/04 09/25/12 [facility] [address] [place] [address] [address] [place] [address] Ruperto Rey, PhD PCP - Mental Health/Behavioral 12/21/00 XXX NO INFO FOUND XXX Medicine documented as of this encounter
--- OUTSIDE RECORDS SUMMARY | 2022-09-25 10:57 | XMS_ITS | Encounter Summary ---
:1990 Author Organization [place] Address [address] [place] [address] Care Team Providers Name Role Phone Mariely Osuna MD Primary Care Provider Ruperto Rey PhD Unavailable Unavailable Reason for Visit Reason Comments A.Caron.H.Caron Encounter Details Date Type Department Care Team Description 08/25/2004 [facility] JONATHON PatI CIT W HYPERACT; System in [place] MD Brennan SLEEP DISTURBANCE NOS Psychology [address] [place] [address] [place] [address] [phone] Social History Tobacco Use Types Packs/Day Years Used Date Smoking Tobacco: Never Comments: no 2nd hand smoke in the house Alcohol Use Standard Drinks/Week Comments Not Asked 0 (1 standard drink = 0.6 oz pure alcoho l) Sex Assigned at Date Recorded Not on file documented as of this encounter Last Filed Vital Signs Vital Sign Reading Time Taken Comments Blood Pressure 98/65 08/25/2004 10:10 AM CDT Pulse 80 08/25/2004 10:10 AM CDT Temperature - - Respiratory Rate - - Oxygen Saturation - - Inhaled Oxygen Concentration - - Weight 30.8 kg (68 lb) 08/25/2004 10:10 AM CDT Height 142.9 cm (4' 8.25) 08/25/2004 10:10 AM CDT Body Mass Index 15.11 08/25/2004 10:10 AM CDT Body Mass Index Percentile 6.41 % 08/25/2004 10:10 AM C DT Growth Chart: CDC (Boys, 2-20 Years) documented in this encounter Progress Notes 08/25/2004 10:10 AM CDT Addended by: JAIMIE LOPEZ on: 08/27/2004,9:11 AM Comment: behavioral health therapist Modules accepted: Shantanu galicia Notes This encounter has been dictated. John Gavin [id number] SUBJECTIVE: Royal is 13 years old and in 6th grade at [employer]. He is brought in by his mother today b ecause of emerging problems at the middle school. Since seen in June he has gained ?? pound. He cont inues on Concerta 36 mg once a day and Trazodone 50 mg a day. Mother initially wanted to talk to me separately. He has had two referrals, both are a problem with a teacher named Josselyn Tafoyaon who calls on him all the time and that has created a power struggle because he won't answer and he doesn't lik e to have attention drawn to himself in the class so he shuffles his papers around and he has had two referrals for that. He did say one time that he wished the school would blow up and he understands that is not appropriate response these days. Last week he didn't come home after school and when m other went to the house he was at they wouldn't let her in. She subsequently grounded him from the [employer] on Wednesday. He then threatened to kill himself and he had method such as chain around his n alvina, jumping out of the house on his head, using a rope or a knife and because his father had committ ed suicide this really effected his mother.His grandmother did tell him previously that his father did commit suicide. Mother's boyfriend then took him to the police station and they talked for about an hour and since then she has heard nothingabout this. The patient said school is going badly, b ut when looking at his grades he has almost all A's and B's, one C and he has a D- in that one class where he is having trouble. He says he hates school and finds it boring. He has good friends. He has an IEP in reading, writing and math. He admits he doesn't like Mrs. Palmer because she does call on him and mother will address this issue with the school and in his IEP. I met with him separately and we talked about his threatening behavior. Mother does not feel a psychologist would work because he refuses to talk to them. Royal did make a contract with me today and agreed to come back in one month and we would see if things improved at school and at home. Mother understands that if she is unsure as to what his motivation is she is to take him either to a crisis center or to the Emergency Room. Grades at this time are B+ in reading essentials, B+ in science and health. IEP is working on those . D- in [employer], C in social studies, A- in math, C- in family living. He is getting A's and B's in his resource study period. ASSESSMENT: 1) ADHD, doubt depression. The patient is having some defia nt behavior in school at this point. PLAN: 1.Concerta 36 mg one daily #30. 2.Trazodone 50 mg one d aily #30. John Fostercont???. 3.Recheck in one month. 4.Visit today of 30 minutes, entire time spent in counseling time. RNS:katya D: [id number] Pat M.D. T: 08-26-04 documented in this encounter Plan of Treatment Not on filedocumented as of this encounter Visit Diagnoses Diagnosis Attention deficit disorder with hyperact ivity(314.01) Attention deficit disorder with hyperact ivity Sleep disturbance, unspecified documented in this encounter Care Teams Mediator Relationship Specialty Start Date End Date Mariley Osuna MD PCP - General 06/26/04 09/25/12 [facility] Marty [address] [facility] [address] [place] [address] Ruperto Rey, PhD PCP - Mental Health/Behavioral 12/21/00 XXX NO INFO FOUND XXX Medicine documented as of this encounter
--- OUTSIDE RECORDS SUMMARY | 2022-09-25 10:57 | XMS_ITS | Encounter Summary ---
:1990 Author Organization [place] Address [address] [place] [address] Care Team Providers Name Role Phone Cora Holliday PA-C Primary Care Provider [phone] Ruperto Rey PhD Unavailable Unavailable Encounter Details Date Type Department Care Team Description 04/25/2004 [facility] Larissa Pat, NO SHOW (Primary Dx) in [place] [facility] [address] [place] [address] [address] [place], [place] [address] (Wo rk) Social History Tobacco Use Types Packs/Day Years Used Date Smoking Tobacco: Never Comments: no 2nd hand smoke in the house Alcohol Use Standard Drinks/Week Comments Not Asked 0 (1 standard drink = 0.6 oz pure alcoho l) Sex Assigned at Date Recorded Not on file documented as of this encounter Progress Notes 04/25/2004 3:30 PM CDT This patient was a no show for this scheduled appointment. documented in this encounter Plan of Treatment Not on filedocumented as of this encounter Visit Diagnoses Diagnosis NO SHOW - Primary documented in this encounter Care Teams Pc Tech Relationship Specialty Start Date End Date Cora Holliday PA-C PCP - General 12/21/00 06/25/04 [facility] [address] [place] [address] Ruperto Rey, PhD PCP - Mental Health/Behavioral 12/21/00 XXX NO INFO FOUND XXX Medicine documented as of this encounter
--- OUTSIDE RECORDS SUMMARY | 2022-09-25 10:58 | XMS_ITS | Encounter Summary ---
:1990 Author Organization [place] Address [address] [facility] [address] Care Team Providers Name Role Phone Cora Holliday PA-C Primary Care Provider [phone] Ruperto Rey PhD Unavailable Unavailable Reason for Referral - Closed Specialty Diagnoses / Procedures Referred By Contact Refer red To Contact Diagnoses Urinary frequency Brennan [place] [address] Referral ID Status Reason Start Date Expiration Date Visits Requ ested Visits Authorized [id number] Closed 06/20/2003 11/28/2011 1 1 Reason for Visit Reason Comments UTI bladder problem Encounter Details Date Type Department Care Team Description 06/20/2003 Office Visit [facility] Brennan Andrea RY FREQUENCY System in [place] MD (Primary Dx) Urology [place] RET[place] [address] [place], [place] [id number] Social History Tobacco Use Types Packs/Day Years Used Date Smoking Tobacco: Never Comments: no 2nd hand smoke in the house Alcohol Use Standard Drinks/Week Comments Not Asked 0 (1 standard drink = 0.6 oz pure alcoho l) Sex Assigned at Date Recorded Not on file documented as of this encounter Progress Notes 06/20/2003 11:15 AM CDT John Gavin is a 12 year old male who I did a cysto and urethra dil. approx. 5 yrs. ago. Sharita garner is not available. For the last 2 wks he has been going constantly to the BR. He has nocturia x1 which he usually doesn't have at all since he stopped bed wetting about 2 yrs. ago. Before going t o bed he will go to the BR multiple times. During the day he will go freq. as well. His mother has w atched him void and she says it is a narrow stream. UA is dipstik-. With his past hx. of a cysto and UD, we will schedule him for the same procedure. documented in this encounter Nursing Notes 06/20/2003 11:15 AM CDT >> VINH SULLIVAN 06/20/2003 11:24 am He is in for a consult per Dr. Sidhu. documented in this encounter Plan of Treatment Not on filedocumented as of this encounter Visit Diagnoses Diagnosis Urinary frequency - Primary documented in this encounter Care Teams Financial Compliance Officer Relationship Specialty Start Date End Date Cora oHlliday PAKristenC PCP - General 12/21/00 06/25/[address] [place] [address] Ruperto Rey, PhD PCP - Mental Health/Behavioral 12/21/00 [place] NO INFO FOUND XXX Medicine documented as of this encounter
--- OUTSIDE RECORDS SUMMARY | 2022-09-25 10:58 | XMS_ITS | Encounter Summary ---
:1990 Author Organization [place] Address [address] [facility] [place] [address] Care Team Providers Name Role Phone Cora Holliday PA-C Primary Care Provider [phone] Ruperto Rey PhD Unavailable Unavailable Encounter Details Date Type Department Care Team Description 06/19/2003 Senior Sql Developer [facility] Olya Pérez RN in [facility] [place] RETIRED [place] [address] [place] [address] [place] [address] [phone] (Wo rk) Social History Tobacco Use Types Packs/Day Years Used Date Smoking Tobacco: Never Assessed Sex Assigned at Date Recorded Not on file documented as of this encounter Progress Notes 06/19/2003 11:59 PM CDT 06-19-03 PAPA GAVINDOB: 89 CASE NOTE: PATIENT OF DR. FRANKLIN. At the time Dr. Rakel barahona left for vacation he did not sign prescriptions for Papa's regular medication because his mot her needed to make an appointment. This date 06-19-03 the mother called to make an appointment and I prepare prescriptions: One for Adderall XR 30 mg with instructions to take oneeach morning and Avril nidine 1 mg with instructions to take 1 tablet each morning. The number on eachprescription is 30. JKS:katya D: [id number] Pérez RN, MANAGER DOCUMENTATION, CLOTHING CONSULTANT, CCJS T: 06-20-03 documented in this encounter Plan of Treatment Not on filedocumented as of this encounter Visit Diagnoses Not on filedocumented in this encounter Care Teams Collection Correspondent Relationship Specialty Start Date End Date Cora Holliday PA-C PCP - General 12/21/00 06/25/[address] [place] [address] Ruperto Rey, PhD PCP - Mental Health/Behavioral 12/21/00 [place] NO INFO FOUND XXX Medicine documented as of this encounter
--- OUTSIDE RECORDS SUMMARY | 2022-09-25 10:58 | XMS_ITS | Encounter Summary ---
:1990 Author Organization [place] Address [address] [place] [address] Care Team Providers Name Role Phone Cora Holliday PA-C Primary Care Provider [phone] Ruperto Rey PhD Unavailable Unavailable Reason for Visit Reason Comments Patient Request Encounter Details Date Type Department Care Team Description 09/06/2003 Telephone [facility] in [place] Priscila Chavez Patient Request [facility] [address] [facility] [place] [address] [facility] [phone] Social History Tobacco Use Types Packs/Day Years Used Date Smoking Tobacco: Never Comments: no 2nd hand smoke in the house Alcohol Use Standard Drinks/Week Comments Not Asked 0 (1 standard drink = 0.6 oz pure alcoho l) Sex Assigned at Date Recorded Not on file documented as of this encounter Miscellaneous Notes Telephone Encounter - 09/06/2003 11:59 PM CDT >> LEO FRANKLIN [facility] Sep 06, 2003 10:28 AM 3 refills 50mg bed >> PRISCILA CHAVEZ [facility] Sep 06, 2003 9:33 AM >> CALL RECEIVED. Contact: lilian Romaine @ [phone] Lilian called to say she got your call regarding increasing Royal' Trazadone to 50 mg., the problem is that she is out.She said it did not come in the mail but he is not in my computer for that.She would like to pick one up here today.Thanks! documented in this encounter Plan of Treatment Not on filedocumented as of this encounter Visit Diagnoses Not on filedocumented in this encounter Care Teams Lift Supervisor Relationship Specialty Start Date End Date Cora Holliday PA-C PCP - General 12/21/00 06/25/04 [facility] [address] [facility] [address] [place] [address] Ruperto Rey, PhD PCP - Mental Health/Behavioral 12/21/00 [place] NO INFO FOUND XXX Medicine documented as of this encounter
--- OUTSIDE RECORDS SUMMARY | 2022-09-25 10:58 | XMS_ITS | Encounter Summary ---
:1990 Author Organization [place] Address [address] [place] [address] Care Team Providers Name Role Phone Cora Holliday PA-C Primary Care Provider [phone] Ruperto Rey PhD Unavailable Unavailable Reason for Visit Reason Comments Derm Problem mole on back Encounter Details Date Type Department Care Team Description 06/12/2002 Office Visit [facility] Cora Holliday (Primary Dx); System in [place] Valerio PA-C TIC DISORDER NOS Pediatrics [facility] [place] [address] [place], [place] [address] [address] [place] [address] [phone] Social History Tobacco Use Types Packs/Day Years [...] - Pulse - - Temperature 37.1 ??C (98.7 ??F) 06/12/2002 3:50 PM CDT Respiratory Rate - - Oxygen Saturation - - Inhaled Oxygen Concentration - - Weight 23.6 kg (52 lb) 06/12/2002 3:50 PM CDT Height - - Body Mass Index - - documented in this encounter Progress Notes 06/12/2002 3:50 PM CDT SUBJECTIVE: Royal is a 11 year old male brought in by his mom today for concerns about frequent and exc essive exhaling. He has had this trouble in the past, but it seems to be becoming more frequent in t he past 2 months. He does not have any history of asthma or pneumonia. She is currently being treat ed for anxiety and ADHD with Dr. Pat. Mom cannot identify any new sources of increased stre ss or anxiety recently. He is otherwise feeling well. No fever, cough, or abdominal pain. No frequ ent headaches.He continues to eat and drink well and has had normal activity levels. OBJECTIVE: Royal is alert and cooperative. He does occassionally have a brief, forceful exhalation. Conjunctivae clear, noninjected. Nares patent, noncongested. Oropharynx pink and moist without lesion. Ear canals clear. TMs translucent with normal light reflex and bony landmarks. Neck supple without lymphadenop athy. Lungs cTA bilaterally. chest xray negative. ASSESSMENT/PLAN: Discussed that at this time I be lieve his symptoms are secondary to a behavioral tic. Reassured that from an exam standpoint, his rudolph ngs are very healthy. Encouraged mom to avoid commenting on his breathing and perhaps over time this will resolve. documented in this encounter Nursing Notes 06/12/2002 3:50 PM CDT >> ADRIANE KEITA 06/12/2002 3:45 pm pt also has fast exhale, habit(?) documented in this encounter Plan of Treatment Not on filedocumented as of this encounter Procedures Procedure Name Priority Date/Time Associated Diagnosis Comme nts HC CHEST TWO VIEWS, Routine 06/12/2002 Cough Results for this FRONT/LAT procedure are i n the results section . documented in this encounter Results CHEST X-RAY 2 VW (06/12/2002) Anatomical Region Laterality Modality Other Narrative 06/12/2002 PA AND LATERAL CHEST: (Comparison February of 2001). ??History of a cough. ??Normal si ze of the heart. ?? Clear lungs. ??No hyperinflation. IMPRESSION: Negative chest. Hayden Thompson M.D./winnie D: ??06/12/2002 T: ??06/13/2002 Cora Holliday PA-C GENERAL IMAGING documented in this encounter Visit Diagnoses Diagnosis Cough - Primary Tic disorder, unspecified documented in this encounter Care Teams Principal System Software Engineer Relationship Specialty Start Date End Date Cora Holliday PA-C PCP - General 12/21/00 06/25/04 [facility] [address] [place] [address] Ruperto Rey, PhD PCP - Mental Health/Behavioral 12/21/00 [place] NO INFO FOUND XXX Medicine documented as of this encounter
--- OUTSIDE RECORDS SUMMARY | 2022-09-25 10:58 | XMS_ITS | Encounter Summary ---
:1990 Author Organization [place] Address [address] [place] [address] Care Team Providers Name Role Phone Cora Holliday PA-C Primary Care Provider [phone] Ruperto Rey PhD Unavailable Unavailable Reason for Visit Reason Comments A.DemetriusH.Caron Encounter Details Date Type Department Care Team Description 07/04/2003 [facility] VIRAJ Pat EELydia DISTURBANCE NOS; in [place] [facility] MD Brennan ATTN DEFICIT W HYPERACT [address] [place] [address] [address] [place], [place] [address] Social History Tobacco Use [...] Sign Reading Time Taken Comments Blood Pressure 104/64 07/04/2003 9:50 AM CDT Pulse 93 07/04/2003 9:50 AM CDT Temperature - - Respiratory Rate - - Oxygen Saturation - - Inhaled Oxygen Concentration - - Weight 26.3 kg (58 lb) 07/04/2003 9:50 AM CDT Height 136.5 cm (4' 5.75) 07/04/2003 9:50 AM CDT Body Mass Index 14.11 07/04/2003 9:50 AM CDT Body Mass Index Percentile 2.41 % 07/04/2003 9:50 AM CD T Growth Chart: [facility] (Boys, 2-20 Years) documented in this encounter Progress Notes 07/04/2003 9:50 AM CDT Addended by: JAIMIE LOPEZ on: 07/09/2003,7:28 AM Comment: monotype keyboard operator Modules accepted: Shantanu galicia Notes This encounter has been dictated. John [id number] SUBJECTIVE: Royal is 12 years old and going into 5th grade at [employer]. He is brought in by his mother today for reevaluation of Attention Deficit. Since last seen one year ago he has gained 5 pounds and 1 ?? inch es. He has been on Adderall 30 XR and Clonidine 0.1 at bedtime. Mother does not have his report car d, but apparently he had all 3's and 2's. His reading has been modified. He can go to testing in a qu ieter environment. He still sees Jina Becker in special ed for reading help and extra help as neede d including work completion. His school anxiety issues seem milton gone, but mother is worried about t he transition to a different school this year. There are no tics present anymore. Socially he seems t o be doing better. The patient is no longer working with [employer] at [employer] and that went pretty we ll. He recently hada cystoscopy done because of urinary frequency and that was negative. I suspect t his was another anxiety issue, which has now disappeared. He still has difficulty getting to sleep, e kevin with the Clonidine, so we will stop the Clonidine today and move to Trazodone 25 mg at bedtime. M other will call me in a week or two and see how that is going and we may move him to 50. Prescription was given for #15. He does have a Y Pal and that is going well. Mother is working at [employer] in [employer].She went to the annual meeting of the [employer] in [place] and is quite pleased with h er job. OBJECTIVE: Cooperative young man in no distress. The head is normocephalic. TM's are clear. Pupils are equal, round and react to light. Extraocular movements are conjugate. No nystagmus. Fun di are benign. Nose is patent. Pharynx is clear. Neck is supple. Thyroid is normal. Chest is clear to auscultation and percussion. Cardiovascular - Normal sinus rhythm without murmurs. Abdomen is s oft, nontender, no HSM or masses noted. Vascular - femorals equal brachials. Skin is clear. Genital ia - Exam deferred. Extremities - Bones and joints are within normal limits. Neurological examinatio n - Cranial nerves II-XII are intact. Deep tendon reflexes are 1+ at the biceps, 1+ at the brachiora dialis, 2+ at the knees, 1+ at the ankles and symmetrical. No clonus is present. Toes are down-phillip g. Muscle strength and sensation are without difficulty. There is no past pointing present. There are fine tremors ofoutstretched hands. ASSESSMENT: 1) ADHD doing fairly well. 2) Still some anxie ty issues. 3) Sleep disturbance. PLAN: 1. Trazodone 25 mg at bedtime. 2. Adderall 30 XR one daily #3 0. 3. Recheck in six months. 4. Visit today of 25 minutes, 20 minutes of counseling time. RNS:katya D: 10-26-98AysycrBrennan Pat M.D. T: 07-05-03 documented in this encounter Plan of Treatment Not on filedocumented as of this encounter Visit Diagnoses Diagnosis Sleep disturbance, unspecified Attention deficit disorder with hyperact ivity(314.01) Attention deficit disorder with hyperact ivity documented in this encounter Care Teams Sand Screener Operator Relationship Specialty Start Date End Date Cora Holliday PA-C PCP - General 12/21/00 06/25/[address] [place] [address] Ruperto Rey, PhD PCP - Mental Health/Behavioral 12/21/00 [place] NO INFO FOUND XXX Medicine documented as of this encounter
--- OUTSIDE RECORDS SUMMARY | 2022-09-25 10:58 | XMS_ITS | Encounter Summary ---
:1990 Author Organization [place] Address [address] [place] [address] Care Team Providers Name Role Phone Cora Holliday PA-C Primary Care Provider [phone] Ruperto Rey PhD Unavailable Unavailable Reason for Visit Reason Comments Patient Request Encounter Details Date Type Department Care Team Description 08/30/2003 Telephone [facility] in Priscila Diego Patient Request [facility] [address] [place] [address] Social History Tobacco Use Types Packs/Day Years Used Date Smoking Tobacco: Never Comments: no 2nd hand smoke in the house Alcohol Use Standard Drinks/Week Comments Not Asked 0 (1 standard drink = 0.6 oz pure alcoho l) Sex Assigned at Date Recorded Not on file documented as of this encounter Miscellaneous Notes Telephone Encounter - 08/30/2003 11:59 PM CDT >> LEO FRANKLIN Bhumi Aug 30, 2003 4:04 PM increase to 50mg >> PRISCILA CEBALLOS [facility] Aug 30, 2003 8:49 AM >> CALL RECEIVED. Contact: Lilian Gavin @ [phone] OR [phone] Royal is still having sleep problems and Lilian is wondering if he should go back to the Clonidine ortake a whole pill of Trazadone.She said it is just not working.Please give her a call today if poss ible.Thanks! documented in this encounter Plan of Treatment Not on filedocumented as of this encounter Visit Diagnoses Not on filedocumented in this encounter Care Teams Food Products Tester Relationship Specialty Start Date End Date Cora Holliday PA-C PCP - General 12/21/00 06/25/04 [facility] [address] [facility] [address] [place] [address] Ruperto Rey, PhD PCP - Mental Health/Behavioral 12/21/00 [place] NO INFO FOUND XXX Medicine documented as of this encounter
--- OUTSIDE RECORDS SUMMARY | 2022-09-25 10:58 | XMS_ITS | Encounter Summary ---
:1990 Author Organization [place] Address [address] [place] [address] Care Team Providers Name Role Phone Cora Holliday PA-C Primary Care Provider [phone] Ruperto Rey PhD Unavailable Unavailable Encounter Details Date Type Department Care Team Description 10/31/2002 Telephone [facility] Brennan gramajo MD [place] [address] [place] [address] [place] [address] [phone] (Wo rk) Social History Tobacco Use Types Packs/Day Years Used Date Smoking Tobacco: Never Comments: no 2nd hand smoke in the house Alcohol Use Standard Drinks/Week Comments Not Asked 0 (1 standard drink = 0.6 oz pure alcoho l) Sex Assigned at Date Recorded Not on file documented as of this encounter Miscellaneous Notes Telephone Encounter - 10/31/2002 11:59 PM DENTAL PRACTITIONER >> JAIMIE LOPEZ Bhumi Nov 02, 2002 9:17 AM >> CALL RECEIVED. Contact: Royal [id number] Talked with Marina Mora and they see him also as being somewhat depressed, anxious. They are goingto start him in play therapy and if that is not successful will think about adding medication. RNS:katya T: 99-22-05JtlhbdBrennan Pat M.D. D: 11-01-02 documented in this encounter Plan of Treatment Not on filedocumented as of this encounter Visit Diagnoses Not on filedocumented in this encounter Care Teams Packaging Clerk Relationship Specialty Start Date End Date Cora Holliday PA-C PCP - General 12/21/00 06/25/04 [facility] Marty Novak [address] [facility] [address] [facility] [place] [address] Ruperto Rey, PhD PCP - Mental Health/Behavioral 12/21/00 XXX NO INFO FOUND XXX Medicine documented as of this encounter
--- OUTSIDE RECORDS SUMMARY | 2022-09-25 10:58 | XMS_ITS | Encounter Summary ---
:1990 Author Organization [place] Address [address] [place] [address] Care Team Providers Name Role Phone Cora Holliday PA-C Primary Care Provider [phone] Ruperto Rey PhD Unavailable Unavailable Reason for Visit Reason Comments Minor Procedure mole biopsy on mid upper shawna k Encounter Details Date Type Department Care Team Description 08/04/2002 Office Visit [facility] Cora Holliday BRYSON SKIN TRUNK System in [place] PA-C (Primary Dx) Pediatrics [facility] [place] [address] [place], [place] [address] [address] [place], [place] [phone] [id number] Social History Tobacco Use Types Packs/Day Years [...] - Inhaled Oxygen Concentration - - Weight 24.8 kg (54 lb 11.2 oz) 08/04/2002 3:50 PM CDT Height - - Body Mass Index - - documented in this encounter Progress Notes 08/04/2002 3:50 PM CDT Addended by: LEA CALZADA on: 08/09/2002,2:51 PM Comment: Pathology report coding update Modules accepted: Order Summary, Progress Notes SUBJECTIVE: Papa is a 11 year old male brought in by his mom today for nevus exisicion. He has a small nevus on his upper back that is unchanged per mom. OBJE CTIVE: Weight 54 lbs 11 oz (24.812 kg). On exam, there is a 0.5cm x 0.5cm benign-appearing nevus on h is left upper back that has slight difference in color throughout. PROCEDURE: The area had EMLA crea m applied 1 hour ago. The area is prepped with betadine and alcohol and 1% lidocaine is injected loc ally for anesthesia. An eliptical incision is made and the nevus removed. Steri-strips were applied . Keep clean and dry x 1 week. documented in this encounter Plan of Treatment Not on filedocumented as of this encounter Procedures Procedure Name Priority Date/Time Associated Diagnosis Comme nts HC EXC BENIGN SKIN Routine 08/09/2002 2:51 PM Benign Bryson Skin LESION CDT Trunk TRUNK/ARM/LEG <=0.5 CM HCL SURG PATH, Routine 08/04/2002 Benign Bryson Skin Results fo r this LEVEL III TC Trunk procedure are i n the results section. documented in this encounter Results LEVEL III SURG. PATH (08/04/2002) Impressions [facility] - 08/04/2002 DM Narrative [facility] - 08/04/2002 [facility] [address] [place] [facility] [address] [facility] RE[facility] PATIENT: ??PAPA GAVIN DATE TAKEN: ??08-04-02 HOSPITAL/CLINIC: [facility] DATE RECEIVED: 08-07-02 PHYSICIAN: YE Jiménez #: [id number] : [birth year] ??AGE: ??11 ??SEX: M TYPE OF SPECIMEN: MOLE BIOPSY HISTORY: None given. GROSS: Light brown tissue up to 2 X 2 X 1 mm. ? ? MICROSCOPIC: Sections of skin appear to show a compou nd nevus which extends to the deep and lateral ma rgins. ?? This limits interpretation because the b oundaries of the lesion cannot be evaluated. ??There are a few scattered cells within the epidermis that contain pigment, but these appear to be keratinocytes rather than nevus cells or melanocytes. ??Even the edges o f the lesion are not seen, the lesion does appear symmetr ic and there does appear to be maturation of the nevu s cells as they appear deeper within the tissue. ??The n evus cells overall have a bland appearance, althoug h one mitotic figure is noted. ?? INTERPRETATION: ?? Mole biopsy, body site not identified: 1. ??Compound nevus, with extension to d eep and lateral margins. 2. ??Interpretation limited by incomplet e excision. ?? COMMENT: Melanoma is sometimes a difficult diagno sis for the pathologist, even under the best conditi ons, but it is made even more difficult by the techniqu es of punch biopsy and shave biopsy. ??Pigmented les ions should be completely excised whenever possible for the best chance at accurate diagnosis. EWB/dmd 08-08-02 Monster Mayorga M.D. Cora Holliday PA-C LABORATORY Performing Organization Address City/State/ZIP Code Phon e Number [facility] [place] [address] documented in this encounter Visit Diagnoses Diagnosis Benign neoplasm of skin of trunk, except scrotum - Primary documented in this encounter Care Teams Sound Recordist Relationship Specialty Start Date End Date Cora Holliday PA-C PCP - General 12/21/00 06/25/04 [facility] [place] [address] [place] [address] [address] [place] [address] Ruperto Rey, PhD PCP - Mental Health/Behavioral 12/21/00 [place] NO INFO FOUND XXX Medicine documented as of this encounter
--- OUTSIDE RECORDS SUMMARY | 2022-09-25 10:58 | XMS_ITS | Encounter Summary ---
:1990 Author Organization [place] Address [address] [place] [address] Care Team Providers Name Role Phone Cora Holliday PA-C Primary Care Provider [phone] Ruperto Rey PhD Unavailable Unavailable Reason for Visit Reason Comments Medication Problem Encounter Details Date Type Department Care Team Description 08/03/[address] [facility] in [place] Medication Problem [facility] [address] [place] [address] Social History Tobacco Use Types Packs/Day Years Used Date Smoking Tobacco: Never Comments: no 2nd hand smoke in the house Alcohol Use Standard Drinks/Week Comments Not Asked 0 (1 standard drink = 0.6 oz pure alcoho l) Sex Assigned at Date Recorded Not on file documented as of this encounter Miscellaneous Notes Telephone Encounter - 08/03/2002 11:59 PM CDT >> LEROY ALLEN [facility] Aug 03, 2002 3:34 PM >> CALL RECEIVED. Contact: Will need to apply emla prior to coming to appt with you tomorrow. Will need to be applied at school so will need a school med form for this tomorrow. Fax to [place] when complete. documented in this encounter Plan of Treatment Not on filedocumented as of this encounter Visit Diagnoses Not on filedocumented in this encounter Care Teams Crozer Operator Relationship Specialty Start Date End Date Cora Holliday PA-C PCP - General 12/21/00 06/25/04 [facility] [address] [place] [address] Ruperto Rey, PhD PCP - Mental Health/Behavioral 12/21/00 XXX NO INFO FOUND XXX Medicine documented as of this encounter
--- OUTSIDE RECORDS SUMMARY | 2022-09-25 10:58 | XMS_ITS | Encounter Summary ---
:1990 Author Organization [place] Address [address] [facility] [address] Care Team Providers Name Role Phone Cora Holliday PA-C Primary Care Provider [phone] Ruperto Rey PhD Unavailable Unavailable Reason for Visit Reason Comments Pharyngitis Encounter Details Date Type Department Care Team Description 09/01/2002 Office Visit [facility] Otto Mancera MD in [place] [facility] [place] [address] [place] [address] [place] [address] [phone] (Wo rk) Social History Tobacco Use Types [...] Sign Reading Time Taken Comments Blood Pressure 110/69 09/01/2002 8:45 PM CDT Pulse 112 09/01/2002 8:45 PM CDT Temperature 36.5 ??C (97.7 ??F) 09/01/2002 8:45 PM CDT Respiratory Rate - - Oxygen Saturation - - Inhaled Oxygen Concentration - - Weight 25.4 kg (56 lb) 09/01/2002 8:45 PM CDT Height - - Body Mass Index - - documented in this encounter Progress Notes 09/01/2002 8:45 PM CDT SUBJECTIVE: The patient is brought to Urgent Care because of sore throat persisting since this capri ludwig He has had a low-grade fever but did go to school today. Tonight was complaining of his neck feeli ng stiff and painful so he was brought in for evaluation. He has had no cough or runny nose. No vomi ting or headache. OBJECTIVE: GENERAL: The patient is alert and in no acute distress. SKIN: Clear, no rashes or petechia. HEENT: Normocephalic. EYES: Clear. NOSE: Clear without congestion or drain age. EARS: TMs are normal. THROAT: Mildly red with a few red spots noted on the soft palate. No exuda te. NECK: Supple with no adenopathy. LUNGS: Clear to auscultation. HEART: Regular rate and no murmur . ABDOMEN: Soft, no masses, no organomegaly. LABORATORY/X-RAY RESULTS: Rapid strep test is negativ e. ASSESSMENT: Acute pharyngitis probably viral. PLAN: 1. Symptomatic treatment. 2. Call back if no t better in two to three days. Otto Tinoco M.D./omar documented in this encounter Plan of Treatment Not on filedocumented as of this encounter Procedures Procedure Name Priority Date/Time Associated Diagnosis Comme nts HCL STREP A RAPID Routine 09/01/2002 Results fo r this procedure are in the resu lts section. documented in this encounter Results STREP A RAPID (09/01/2002) P athologist Signature Rapid Strep A Negative [facility] Specimen (Source) Anatomical Location Collection Method / Collectio n Time Received Time / Laterality Volume 09/01/2002 Impressions [facility] - 09/03/2002 2 :18 PM CDT ln Narrative [facility] - 09/03/2002 2 :18 PM CDT FINAL CULTURE REPORT: NO BETA STREP Otto Tinoco MD LABORATORY Performing Organization Address City/State/ZIP Code Phon e Number [facility] [address] documented in this encounter Visit Diagnoses Not on filedocumented in this encounter Care Teams Sap Payroll Consultant Relationship Specialty Start Date End Date Cora Holliday PA-C PCP - General 12/21/00 06/25/04 [facility] [place] [address] [place] [address] Ruperto Rey, PhD PCP - Mental Health/Behavioral 12/21/00 XXX NO INFO FOUND XXX Medicine documented as of this encounter
--- OUTSIDE RECORDS SUMMARY | 2022-09-25 10:58 | XMS_ITS | Encounter Summary ---
:1990 Author Organization [place] Address [address] [place] [address] Care Team Providers Name Role Phone Cora Holliday PA-C Primary Care Provider [phone] Ruperto Rey PhD Unavailable Unavailable Reason for Visit Reason Comments Pre-Op Exam Surgery 06/22/[address] Reagan joe, cysto, urethra dil. Encounter Details Date Type Department Care Team Description 06/20/2003 Office Visit [facility] Monster Bazan URET HRAL STRICTURE NOS System in [place] Novak MD (Primary Dx) Pediatrics [address] [place] [address] [place], [place] [phone] Social History Tobacco Use Types Packs/Day Years Used Date Smoking Tobacco: Never Comments: no 2nd hand smoke in the house Alcohol Use Standard Drinks/Week Comments Not Asked 0 (1 standard drink = 0.6 oz pure alcoho l) Sex Assigned at Date Recorded Not on file documented as of this encounter Last Filed Vital Signs Vital Sign Reading Time Taken Comments Blood Pressure 114/66 06/20/2003 3:40 PM CDT Pulse 108 06/20/2003 3:40 PM CDT Temperature 36.7 ??C (98.1 ??F) 06/20/2003 3:40 PM CDT Respiratory Rate - - Oxygen Saturation - - Inhaled Oxygen Concentration - - Weight 26.9 kg (59 lb 4.8 oz) 06/20/2003 3:40 PM CDT Height 135.9 cm (4' 5.5) 06/20/2003 3:40 PM CDT Body Mass Index 14.57 06/20/2003 3:40 PM CDT Body Mass Index Percentile 5.94 % 06/20/2003 3:40 PM CD T Growth Chart: CDC (Boys, 2-20 Years) documented in this encounter Progress Notes 06/20/2003 3:40 PM CDT Date of Surgery: 06/22 Type of Anticipated Surgery: urethral dilation Surgeon: Cathy Red Type of Anesthesia Anticipated: General PRESENT HISTORY: John Townsend er is an 12 year old male here for preop physical. urinary frequency, narrow streamhx of urinary dil ation in past. Patient Active Problem List: HEADACHE[784.0] Date Noted: 06/08/2001 ATTN DEFI CIT W HYPERACT[314.01] TIC DISORDER NOS[307.20] Date Noted: 07/20/2002 MEDICATIONS:Meds as of 06/20/2003: ADDERALL XR (30MG) CAPS CLONIDINE HCL 0.1 MG OR TABS one q night ALLERGIES: Review of tyson spear's allergies indicates: No Known Aller* PAST SURGICAL HISTORY: Urethral dilation- age 7 Herni a repair-1.5 year adenoidectomy-3y tonsilectomy-4y pe tubes bilat-3y Transfusion reactions: No prior transfusions Bleeding tendencies:No bleeding problems noted Prior Sedation? yes - gets very anxious prior to surgery Anesthesia reactions? no- some vomiting afterwards Difficult intubation with prior s urgery? no Post operative airway difficulties such as bronchospasm, edema, pneumonia? no PAST HISTORY : There is no previous medical history on file. immu:UTD Normal growth and development for age? Yes Asthma? no Croup? no Contagious contact (chickenpox, measles, mumps, rubella)? no Hepatitis/HIV? no FAMILY HISTORY: Review of patient's family history indicates: Neurological Mothe r Comment: migraine headaches Neurological Paternal Grandmoth er Comment: migraine headaches No family history of malignant hyperthermia. No family history of bleeding disorder.. REVIEW OF SYSTEMS: General: negative Skin: negative Eyes: negative Ears/Nos e/Throat: negative Respiratory: negative Cardiovascular: negative Gastrointestinal: negative Genitour inary: frequency Musculoskeletal: joint stiffness, neck Neurologic: negative Psychiatric: attention d isorder Hematologic/Lymphatic/Immunologic: negative Endocrine: negative PHYSICAL EXAM: General Appea arnulfo: healthy, alert and no distress BP 114/66 Pulse 108 Temp 98.1 Temp Src: Tympanic Ht 4' 5.5 (1.359m) Wt 59 lbs 5 oz (26.898 kg) Head: Atraumatic, normocephalic Eyes: Conjunctivae are ander ar, EOM intact, PERRL, Optic discs sharp. Ears: External ears and canals are normal. TM's translucen t with normal luisa landmarks. No erythema or purulence. Normal mobility. Nose: No lesions, no drai nage. Oropharynx: Moist membranes, no tonsillar erythema or exudate. Tonsils 2+. No loose teeth. Nec k: Supple, no significant adenopathy. Chest: Easy respirations. Lungs clear to auscultation. Good air movement bilaterally without rales, wheezes, or rhonchi. CV: Regular rate and rhythm with normal S1 and split S2. No murmur appreciated. Abdomen: soft, active bowel sounds, No organomegaly :NORMAL male - circumcised Skin: Normal color, temperature and turgor. No rashes or suspicious skin lesions noted. Neuro: General movements show normal strength and no weakness. Normal tone. Symmetric DTR's. Toes down going. Gait: normal Musculoskeletal: Range of motion of neck, shoulder, elbow, hands, back, hips, knees and ankles are within normal limits by screening exam. Back is straight. Leg length eq ual. LAB: No results found for this basename: HGB,1] ASSESSMENT: Preoperative clearance for surger y. class 1 risk PLAN: Cleared for surgery: yes - mom request anti- anxiety meds prior to OR MD Signature: Monster bob M.D. [facility] documented in this encounter Nursing Notes 06/20/2003 3:40 PM CDT >> SON GUERRA 06/20/2003 3:41 pm PCN finished X 2 days ago, mother had strep. documented in this encounter Plan of Treatment Not on filedocumented as of this encounter Visit Diagnoses Diagnosis Urethral stricture unspecified - Primary Urethral stricture, unspecified documented in this encounter Care Teams Technical Maintenance Technician Relationship Specialty Start Date End Date Cora Holliday PA-C PCP - General 12/21/00 06/25/[address] [place] [address] Ruperto Rey, PhD PCP - Mental Health/Behavioral 12/21/00 XXX NO INFO FOUND XXX Medicine documented as of this encounter
--- OUTSIDE RECORDS SUMMARY | 2022-09-25 10:58 | XMS_ITS | Encounter Summary ---
:1990 Author Organization [place] Address [address] [place] [address] Care Team Providers Name Role Phone Cora Holliday PA-C Primary Care Provider [phone] Ruperto Rey PhD Unavailable Unavailable Reason for Visit Reason Comments Patient Request Encounter Details Date Type Department Care Team Description 01/03/2004 Telephone [facility] in [place] Patient Request Wing Psychology [address] [place] [address] [facility] [phone] Social History Tobacco Use Types Packs/Day Years Used Date Smoking Tobacco: Never Comments: no 2nd hand smoke in the house Alcohol Use Standard Drinks/Week Comments Not Asked 0 (1 standard drink = 0.6 oz pure alcoho l) Sex Assigned at Date Recorded Not on file documented as of this encounter Miscellaneous Notes Telephone Encounter - 01/03/2004 11:59 PM AIRBRUSH PAINTER >> PRISCILA LIN [facility] Jan 03, 2004 12:58 PM Olya has taken care of this. >> PRISCILA LIN [facility] Jan 03, 2004 9:22 AM >> CALL RECEIVED. Contact: nery Quintana moved and has lost the RX you gave her for Trazodone 25 mg. 1 @ bedtime.could you call this in to [facility] or should I have Olya do it. I think with your ok I can call this in.Let me know, Sherry hernandez's number is [phone].She needs to pick this up today.Thanks!! documented in this encounter Plan of Treatment Not on filedocumented as of this encounter Visit Diagnoses Not on filedocumented in this encounter Care Teams Shop Estimator Relationship Specialty Start Date End Date Cora Holliday PA-C PCP - General 12/21/00 06/25/04 [facility] [place] [address] [facility] [address] [place] [address] Ruperto Rey, PhD PCP - Mental Health/Behavioral 12/21/00 XXX NO INFO FOUND XXX Medicine documented as of this encounter
--- OUTSIDE RECORDS SUMMARY | 2022-09-25 10:58 | XMS_ITS | Encounter Summary ---
:1990 Author Organization [place] Address [address] [facility] [place] [address] Care Team Providers Name Role Phone Cora Holliday PA-C Primary Care Provider [phone] Ruperto Rey PhD Unavailable Unavailable Reason for Visit Reason Comments Consult LEFT HAND Encounter Details Date Type Department Care Team Description 09/07/2003 Office Visit [facility] Annette Arevalo, OPEN WOUND OF HAND System in [place] (Primary Dx) Orthopedics XXX RETIRED XXX [address] [place] [phone] Social History Tobacco Use Types Packs/Day Years Used Date Smoking Tobacco: Never Comments: no 2nd hand smoke in the house Alcohol Use Standard Drinks/Week Comments Not Asked 0 (1 standard drink = 0.6 oz pure alcoho l) Sex Assigned at Date Recorded Not on file documented as of this encounter Progress Notes 09/07/2003 11:00 AM CDT Addended by: DANIEL QUINONEZ on: 09/12/2003,12:57 PM 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 The patient's mother and grandmother contacted me because of a laceration sustained to his h and about 6 days ago. At that time he was peeling potato's with a dull knife when he slipped and p unctured his left hand over the thenar area. There was quite a bit of bleeding. The patient went to the ER for evaluation. Evidently had this evaluated and sutured. He had persistent swelling, which seemed to increasing with increasing pain to the hand following that when he went home. They subseq uently brought him to the ER in [place]. Evidently the laceration opened up and reported blood spew ed out. This was evaluated in the emergency room and cauterized and was then re-sutured. There was concern because ofpossible deeper injury. Clinically, the individual has a less than approximate 1/2 inch laceration to the base of the thenareminence. He has in detailed exam full intrinsic funct ion of all flexor tendons. Neurologic exam shows varinder sensation to all areas of the hand. There i s good pulsations present and good refill in all digits. The incision itself appears to be healing. The sutures are planned to come out Wednesday, the and will return for that brief recheck. Annette Arevalo M.D./lawrence documented in this encounter Nursing Notes 09/07/2003 11:00 AM CDT >> ANNETTE AREVALO 09/07/2003 11:46 am LEFT HAND/ KNIFE IN HAND PEELING POTATOES 09/01. THUMB IS NUMB, PT UNABLE TO BEND IT ALL THE WAY documented in this encounter Plan of Treatment Not on filedocumented as of this encounter Visit Diagnoses Diagnosis Open wound of hand except finger(s) guy e, without mention of complication - Primary documented in this encounter Care Teams Printing Mechanist Relationship Specialty Start Date End Date Cora Holliday PA-C PCP - General 12/21/00 06/25/[address] [place] [address] Ruperto Rey, PhD PCP - Mental Health/Behavioral 12/21/00 XXX NO INFO FOUND XXX Medicine documented as of this encounter
--- OUTSIDE RECORDS SUMMARY | 2022-09-25 10:58 | XMS_ITS | Encounter Summary ---
:1990 Author Organization [place] Address [address] [place] [address] Care Team Providers Name Role Phone Cora Holliday PA-C Primary Care Provider [phone] Ruperto Rey PhD Unavailable Unavailable Encounter Details Date Type Department Care Team Description 03/22/2003 Allied Health/Nurse [facility] Naeem Paulino Visit System in [place] [address] [facility] [address] [place] [address] [place] [phone] Social History Tobacco Use Types Packs/Day Years Used Date Smoking Tobacco: Never Comments: no 2nd hand smoke in the house Alcohol Use Standard Drinks/Week Comments Not Asked 0 (1 standard drink = 0.6 oz pure alcoho l) Sex Assigned at Date Recorded Not on file documented as of this encounter Progress Notes 03/22/2003 11:59 PM CDT Assisting patient with medication through the pharmaceutical company documented in this encounter Plan of Treatment Not on filedocumented as of this encounter Visit Diagnoses Not on filedocumented in this encounter Care Teams Executive Wellness Programs Director Relationship Specialty Start Date End Date Cora Holliday PA-C PCP - General 12/21/00 06/25/04 [facility] [address] [place] [address] Ruperto Rey, PhD PCP - Mental Health/Behavioral 12/21/00 XXX NO INFO FOUND XXX Medicine documented as of this encounter
--- OUTSIDE RECORDS SUMMARY | 2022-09-25 10:58 | XMS_ITS | Encounter Summary ---
:1990 Author Organization [place] Address [address] [facility] [place] [address] Care Team Providers Name Role Phone Cora Holliday PA-C Primary Care Provider [phone] Ruperto Rey PhD Unavailable Unavailable Reason for Visit Reason Comments Cough Encounter Details Date Type Department Care Team Description 09/15/2003 Office Visit [facility] Peyman TomasMATILDE villatoro AT PAIN (Primary System in [place]IE Dx) Urgent Care XXX RETIRED XXX [address] [facility] [address] [place], [place], [place] [phone] Social History Tobacco Use Types Packs/Day Years Used Date Smoking Tobacco: Never Comments: no 2nd hand smoke in the house Alcohol Use Standard Drinks/Week Comments Not Asked 0 (1 standard drink = 0.6 oz pure alcoho l) Sex Assigned at Date Recorded Not on file documented as of this encounter Last Filed Vital Signs Vital Sign Reading Time Taken Comments Blood Pressure 99/65 09/15/2003 11:50 AM CDT Pulse 133 09/15/2003 11:50 AM CDT Temperature 37.2 ??C (98.9 ??F) 09/15/2003 11:50 AM CDT Respiratory Rate - - Oxygen Saturation - - Inhaled Oxygen Concentration - - Weight 27.2 kg (60 lb) 09/15/2003 11:50 AM CDT Height - - Body Mass Index - - documented in this encounter Progress Notes 09/15/2003 11:50 AM CDT SUBJECTIVE: He is complaining of a sore throat that hurts all the time, and last night his cough a ccelerated and he had a hard time breathing. His aunt put him over some hot steam and that seemed to help for a while. His voice has been hoarse. She has been giving him Advil. She thinks that he ran a temp in the night last night. He has no history of asthma. OBJECTIVE: On examination, his voice is hoarse. Oral cavity - fairly normal. Rapid Strep was done prior to my seeing him, and it was negat roberto. Neck - supple, no nodes. Lung harrington - clear. Cough - not witnessed. Skin - warm and dry. He toledo s semi-circles under his eyes. ASSESSMENT: 1. Viral UTI with cough and some bronchospasm. PLAN: 1. Albuterol inhaler 2 puffs QID prn cough. Royal states that he knows how to use the inhalers. 2. Al so, advised continuing with extra humidification if possible. Tomas Morley PA-C/cesar D: 08/29 documented in this encounter Nursing Notes 09/15/2003 11:50 AM CDT >> TOMAS ROBERTS 09/15/2003 11:55 am Pain Questionnaire: Is your visit today because of Pain? NO documented in this encounter Plan of Treatment Not on filedocumented as of this encounter Procedures Procedure Name Priority Date/Time Associated Diagnosis Comme nts HCL STREP A RAPID Routine 09/15/2003 12:13 PM Throat Pain Res ults for this CDT procedure are i n the results section. documented in this encounter Results STREP A RAPID (09/15/2003 12:13 PM CDT) P athologist Signature Rapid Strep A NEGATIVE [facility] Specimen (Source) Anatomical Collection Method Collection Time Re ceived Time Location / / Volume Laterality Specimen from 09/15/2003 12:13 throat (specimen) PM CDT Impressions [facility] - 09/17/2003 9 :14 AM CDT DEPARTMENT STORE DOOR GREETER Narrative [facility] - 09/17/2003 9 :14 AM CDT FINAL CULTURE REPORT: NO BETA STREP Tomas Morley PA-C LABORATORY Performing Organization Address City/State/ZIP Code Phon e Number [facility] [address] documented in this encounter Visit Diagnoses Diagnosis Throat pain - Primary documented in this encounter Care Teams Shelter Supervisor Relationship Specialty Start Date End Date Cora Holliday PA-C PCP - General 12/21/00 06/25/[address] [place] [address] Ruperto Rey, PhD PCP - Mental Health/Behavioral 12/21/00 XXX NO INFO FOUND XXX Medicine documented as of this encounter
--- OUTSIDE RECORDS SUMMARY | 2022-09-25 10:58 | XMS_ITS | Encounter Summary ---
:1990 Author Organization [place] Address [address] [place] [address] Care Team Providers Name Role Phone Cora Holliday PA-C Primary Care Provider [phone] Ruperto Rey PhD Unavailable Unavailable Encounter Details Date Type Department Care Team Description 07/20/2002 Office Visit [facility], ERRONEOUS System in [place] MD Brennan ENCOUNTER--DISREGARD Psychology [address] (Primary Dx) [address] [facility] [address] [place] [address] [phone] Social History Tobacco Use Types Packs/Day Years Used Date Smoking Tobacco: Never Assessed Sex Assigned at Date Recorded Not on file documented as of this encounter Progress Notes 07/20/2002 2:10 PM CDT This encounter was opened in error or the patient, John Gavin, was a NO SHOW. Please disrega rd. documented in this encounter Plan of Treatment Not on filedocumented as of this encounter Visit Diagnoses Diagnosis ERRONEOUS ENCOUNTER--DISREGARD - Primary documented in this encounter Care Teams Cleat Thrower Relationship Specialty Start Date End Date Cora Holliday PA-C PCP - General 12/21/00 06/25/04 [facility] [address] [place] [address] Ruperto Rey, PhD PCP - Mental Health/Behavioral 12/21/00 XXX NO INFO FOUND XXX Medicine documented as of this encounter
--- OUTSIDE RECORDS SUMMARY | 2022-09-25 10:58 | XMS_ITS | Encounter Summary ---
:1990 Author Organization [place] Address [address] [facility] [facility] [address] Care Team Providers Name Role Phone Cora Holliday PA-C Primary Care Provider [phone] Ruperto Rey PhD Unavailable Unavailable Reason for Visit Reason Comments [email or web address].Caron Encounter Details Date Type Department Care Team Description 07/20/2002 Office Visit [facility] KATHERINE Pat DISOR CRISTI NOS; System in [place] MD Brennan ATTN DEFICIT W HYPERACT Psychology [address] [facility] [address] [place] [phone] Social History Tobacco Use Types Packs/Day Years Used Date Smoking Tobacco: Never Comments: no 2nd hand smoke in the house Alcohol Use Standard Drinks/Week Comments Not Asked 0 (1 standard drink = 0.6 oz pure alcoho l) Sex Assigned at Date Recorded Not on file documented as of this encounter Last Filed Vital Signs Vital Sign Reading Time Taken Comments Blood Pressure 86/61 07/20/2002 2:10 PM CDT Pulse 92 07/20/2002 2:10 PM CDT Temperature - - Respiratory Rate - - Oxygen Saturation - - Inhaled Oxygen Concentration - - Weight 24 kg (53 lb) 07/20/2002 2:10 PM CDT Height 132.1 cm (4' 4) 07/20/2002 2:10 PM CDT Body Mass Index 13.78 07/20/2002 2:10 PM CDT Body Mass Index Percentile 2.15 % 07/20/2002 2:10 PM CD T Growth Chart: CDC (Boys, 2-20 Years) documented in this encounter Progress Notes 07/20/2002 2:10 PM CDT Addended by: JAIMIE LOPEZ on: 07/25/2002,7:22 AM Comment: buyer broker Modules accepted: Shantanu galicia Notes dictation done John [id number] SUBJECTIVE: Royal is 11 years old and will be going into 4th grade at [employer]. He is brought in by his mother today for reevaluati on of Attention Deficit. Since seen in October he has gained ?? pound and 1 ?? inches. He is on Addera ll 30 XR, which we switched to at our last visit and Clonidine 0.1 at bedtime. School - his report c brissa shows all 2's and 3's. His reading is modified and sometimes his testing is modified into a more quiet environment. 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 His self developmental scores we re all 3's and 2's. Those all came up during the year. He is getting along well with kids. His school anxiety issues seem to be diminished. At home he does need his Clonidine for sleep. His issues are that he still has some panic issues where he complains of chest pain and worries a lot. He has not se en Dr. Rey since the last visit. Konstantin have a tic that he saw Cora for, which was only a cough, but before when he had sort of a cough then he started exhaling deeply and sometimes it would go bri ry three seconds. They did have a trip to [place] and to [place] and that went exceedingly well. She has signed him up for a Y pal, whichgordon thinks will help some of this anxiety and she is also tryin g to sign him up for [employer]. He also has difficulties with obsessive behaviors. He gets an idea in his head and it stays for days. He is on a and just can't seem to get out of it. He also gets into cleaning frenzies. We did talk today about the possibility of adding Zoloft, but we will wait to see if he gets into [employer] and see how the first month of school goes and see if he gets a Y pal. OBJECTIVE: Very cooperative young man in no distress. The head is normocephalic. TM's are clear. Pupils are equal, round and react to light. Extraocular movements are conjugate. No nys tagmus. Fundi are benign. Nose is patent. Pharynx is clear. Neck is supple. Thyroid is normal. Ch est is clear to ausc ultation and percussion. Cardiovascular - Normal sinus rhythm without murmurs. Abdomen is soft, nontender, no HSM or masses noted. Vascular - femorals equal brachials. Skin is cl ear. Genitalia -Exam deferred. Extremities - Bones and joints are within normal limits. Neurologica l examination - Cranialnerves II- XII are intact. Deep tendon reflexes are 1+ at the biceps, 1+ at t he brachioradialis, 2+ at the knees, 1+ at the ankles and symmetrical. No clonus is present. Toes a re down-going. Muscle strength and sensation are without difficulty. There is no past pointing pres ent. There are fine tremors of outstretched hands. ASSESSMENT: 1) ADHD. 2) Tic Disorder. 3) Evid ence of some Obsessive Compulsive problems. PLAN: 1. Clonidine 0.1 mg one daily #30. 2. Adderall 3 0 XR one daily #30. 3. Recheck in two months. 4. Visit today of 25 minutes, 20 minutes of counseling time. John Colbert? RNS:katya D: [id number] Pat M.D. T: 07-24-02 documented in this encounter Plan of Treatment Not on filedocumented as of this encounter Visit Diagnoses Diagnosis Tic disorder, unspecified Attention deficit disorder with hyperact ivity(314.01) Attention deficit disorder with hyperact ivity documented in this encounter Care Teams Ventilation Worker Relationship Specialty Start Date End Date Cora Holliday PA-C PCP - General 12/21/00 06/25/04 [facility] [address] [place] [address] [address] [place] [address] Ruperto Rey, PhD PCP - Mental Health/Behavioral 12/21/00 XXX NO INFO FOUND XXX Medicine documented as of this encounter
--- OUTSIDE RECORDS SUMMARY | 2022-09-25 10:58 | XMS_ITS | Encounter Summary ---
:1990 Author Organization [place] Address [address] [place] [address] Care Team Providers Name Role Phone Cora Holliday PA-C Primary Care Provider [phone] Ruperto Rey PhD Unavailable Unavailable Encounter Details Date Type Department Care Team Description 03/28/2002 Supervisor Tan Room [facility] Raquel Pat, in [place] [facility] [address] [facility] e[address] [place] [address] [address] [place], [place] [address] (Wo rk) Social History Tobacco Use Types Packs/Day Years Used Date Smoking Tobacco: Never Comments: no 2nd hand smoke in the house Alcohol Use Standard Drinks/Week Comments Not Asked 0 (1 standard drink = 0.6 oz pure alcoho l) Sex Assigned at Date Recorded Not on file documented as of this encounter Progress Notes 03/28/2002 11:59 PM CDT Royal [id number] Rey. The note said he is developing some friends hips. We also talked about his obsessiveness, including his fears of others looking at him, which erin ps him from being involved and Dr. Rey is wondering if medication would be effective. Noting he toledo d difficulty in school with a friendship triangle. He feels there is extreme obsessive behaviors. He is going to continue working with him. RNS:katya D: [id number] Pat M.D. T: 04-03 documented in this encounter Plan of Treatment Not on filedocumented as of this encounter Visit Diagnoses Not on filedocumented in this encounter Care Teams Dispatcher Chief Coal Slurry Relationship Specialty Start Date End Date Cora Holliday PA-C PCP - General 12/21/00 06/25/[address] [place] [address] Ruperto Rey, PhD PCP - Mental Health/Behavioral 12/21/00 XXX NO INFO FOUND XXX Medicine documented as of this encounter
--- OUTSIDE RECORDS SUMMARY | 2022-09-25 10:58 | XMS_ITS | Encounter Summary ---
:1990 Author Organization [place] Address [address] [facility] [place] [address] Care Team Providers Name Role Phone Cora Holliday PA-C Primary Care Provider [phone] Ruperto Rey PhD Unavailable Unavailable Encounter Details Date Type Department Care Team Description 12/05/[address] [facility] Olya Pérez RN in [facility] XXX RETIRED XXX [address] [place] [address] [place] [address] [phone] (Wo rk) Social History Tobacco Use Types Packs/Day Years Used Date Smoking Tobacco: Never Comments: no 2nd hand smoke in the house Alcohol Use Standard Drinks/Week Comments Not Asked 0 (1 standard drink = 0.6 oz pure alcoho l) Sex Assigned at Date Recorded Not on file documented as of this encounter Progress Notes 12/05/2003 11:59 PM PATCHER WOOD WELDER 12-05-03 NOEL GAVIN CASE NOTE: PATIENT OF DR. FRANKLIN. This day I provide refills for Tr azodone 25 mg with instructions to take one at bedtime and Adderall XR 30 mg with instructions to seema e one daily. I provide a one month supply. JKS:katya D: [id number] Pérez RN, BEAM MACHINE OPERATOR, HOT DIE PRESS OPERATOR, CC JS T: 12-06-03 documented in this encounter Plan of Treatment Not on filedocumented as of this encounter Visit Diagnoses Not on filedocumented in this encounter Care Teams Detective Supervisor Relationship Specialty Start Date End Date Cora Holliday PA-C PCP - General 12/21/00 06/25/04 [facility] [address] [facility] [address] [place] [address] Ruperto Rey, PhD PCP - Mental Health/Behavioral 12/21/00 XXX NO INFO FOUND XXX Medicine documented as of this encounter
--- OUTSIDE RECORDS SUMMARY | 2022-09-25 10:58 | XMS_ITS | Encounter Summary ---
:1990 Author Organization [place] Address [address] [facility] [place] [address] Care Team Providers Name Role Phone Cora Holliday PA-C Primary Care Provider [phone] Ruperto Rey PhD Unavailable Unavailable Reason for Visit Reason Comments UTI Encounter Details Date Type Department Care Team Description 06/17/2003 Office Visit [facility] LatriciadakotaAddison kuo SRIKANTH UN KNOWN (Primary System in [place] SADIE Reardon Dx) Urgent Care [facility] [place] [address] [place] [address] [place], [place] [address] [place] [address] [phone] Social History Tobacco Use Types Packs/Day Years Used Date Smoking Tobacco: Never Comments: no 2nd hand smoke in the house Alcohol Use Standard Drinks/Week Comments Not Asked 0 (1 standard drink = 0.6 oz pure alcoho l) Sex Assigned at Date Recorded Not on file documented as of this encounter Last Filed Vital Signs Vital Sign Reading Time Taken Comments Blood Pressure 112/63 06/17/2003 10:45 AM CDT Pulse 105 06/17/2003 10:45 AM CDT Temperature 36.6 ??C (97.9 ??F) 06/17/2003 10:45 AM CDT Respiratory Rate - - Oxygen Saturation - - Inhaled Oxygen Concentration - - Weight 27.2 kg (60 lb) 06/17/2003 10:45 AM CDT Height - - Body Mass Index - - documented in this encounter Progress Notes 06/17/2003 10:45 AM CDT for one and a half to two weeks he has had urinary frequency with some urgency, but no dysuria. Previous history of urinary urethra dilation by Dr. Andrea. Mother wanted to make sure that he is notinfected. He apparently is on Penicillin currently. No acute distress. Vital signs discussed. No tenderness over either renal region. Abdomen soft and nontender with no rash. No inguinal hernia. Both testis descended. Circumcised malepenis with no evidence of infection or tenderness etc. U A discussed with mother. Recommended she have John see Dr. Andrea again for evaluation and po ssible re-dilation and mother agreed and note written. 5th Grade. Wisam Browning M.D ./lawrence documented in this encounter Plan of Treatment Not on filedocumented as of this encounter Procedures Procedure Name Priority Date/Time Associated Diagnosis Comme nts HCL URINALYSIS, Routine 06/17/2003 Rw Unknown Results for this MACROSCOPIC procedure are i n the results section . documented in this encounter Results UA WITHOUT MICRO (06/17/2003) Analysis Performed At Patho logist Time Signature Glucose Urine neg neg - neg [facility] mg/dL [facility] Bilirubin Urine neg neg - neg [facility] Ketones Urine neg neg - neg [facility] mg/dL [facility] Specific [place] 1.020 1.005 - [facility] Urine 1.030 [facility] pH Arterial 7.5 5 - 9 [facility] Protein Urine neg neg - neg [facility] mg/dL [facility] Urobilinogen 0.2 0.2 - 1.0 [facility] Urine EU/dL [facility] Nitrite Urine neg neg - neg [facility] Blood Urine neg neg - neg [facility] Leukocytes neg neg - neg [facility] Color Urine yellow [facility] Clarity clear [facility] Specimen (Source) Anatomical Location Collection Method / Collectio n Time Received Time / Laterality Volume 06/17/2003 Impressions [facility] - 06/17/2003 1 1:15 AM CDT cb Addison Sidhu PA-C LABORATORY Performing Organization Address City/State/ZIP Code Phon e Number [facility] [address] documented in this encounter Visit Diagnoses Diagnosis RW UNKNOWN - Primary Created for RW lab go live documented in this encounter Care Teams Firewood Cutter Relationship Specialty Start Date End Date Cora Holliday PA-C PCP - General 12/21/00 06/25/[address] [place] [address] Ruperto Rey, PhD PCP - Mental Health/Behavioral 12/21/00 XXX NO INFO FOUND XXX Medicine documented as of this encounter
--- OUTSIDE RECORDS SUMMARY | 2022-09-25 10:58 | XMS_ITS | Encounter Summary ---
:1990 Author Organization [place] Address [address] [facility] [address] Care Team Providers Name Role Phone Cora Holliday PA-C Primary Care Provider [phone] Ruperto Rey PhD Unavailable Unavailable Reason for Visit Reason Comments Cough cough for a week/lethargic Encounter Details Date Type Department Care Team Description 09/18/2003 Office Visit [facility] Otto Tinoco, ACUTE URI MULT SITES System in [place] [facility] (Primary Dx) Pediatrics [facility] [address] [place] [address] [place] [address] [address] [phone] [place], [place] [phone] Social History Tobacco Use Types Packs/Day Years [...] Pressure - - Pulse - - Temperature 36.9 ??C (98.5 ??F) 09/18/2003 2:30 PM CDT Respiratory Rate - - Oxygen Saturation - - Inhaled Oxygen Concentration - - Weight 26.6 kg (58 lb 9.6 oz) 09/18/2003 2:30 PM CDT Height - - Body Mass Index - - documented in this encounter Progress Notes 09/18/2003 2:30 PM CDT Addended by: DANIEL QUINONEZ on: 09/24/2003,7:13 AM Comment: communication studies professor Modules accepted: Maureen juarez Notes John Gavin SUBJECTIVE: The patient has been sick for about a week with cold sympt oms and a lot of coughing, very congested, coughing a lot at night. Also has had a low-grade fever. His mother had pneumonia, about 2 weeks ago and just is getting over that. He complains of his ches t hurting when he coughs, no wheezing or dyspnea. Appetite is decreased. Activity decreased. OBJE CTIVE: The patient is alert and no acute distress. Skin is clear. HEENT: normocephalic. Eyes look nor mal, no discharge. Nose congested with mild mucosal erythema. TMs are clear. Throat is negative. Nec k is supple. No masses. Lungs are clear to auscultation. No rales, no wheezes. Heart regular rat e and no murmur. Abdomen is negative. ASSESSMENT: URI PLAN: 1. Because of the mother's history of walking pneumonia, will treat the patient with Zithromax. 2. Return PRN. Otto tolentino M.D./lawrence documented in this encounter Plan of Treatment Not on filedocumented as of this encounter Visit Diagnoses Diagnosis Acute upper respiratory infections of ot her multiple sites - Primary documented in this encounter Care Teams Administrator Health Care Facility Relationship Specialty Start Date End Date Cora Holliday PA-C PCP - General 12/21/00 06/25/04 [facility] [address] [place] [address] [address] [place] [address] Ruperto Rey, PhD PCP - Mental Health/Behavioral 12/21/00 XXX NO INFO FOUND XXX Medicine documented as of this encounter
--- OUTSIDE RECORDS SUMMARY | 2022-09-25 10:58 | XMS_ITS | Encounter Summary ---
:1990 Author Organization [place] Address [address] [place] [address] Care Team Providers Name Role Phone Cora Holliday PA-C Primary Care Provider Ruperto Rey PhD Unavailable Unavailable Reason for Visit Reason Comments Sick chest pain,abd pain,seen on zithromax Encounter Details Date Type Department Care Team Description 09/26/2003 Office Visit [facility] Mariely Osuna OTHE R ACUTE SINUSITIS; System in [place] [facility] Pediatrics [facility] [address] [place] [address] [address] [address] [place], [place] [phone] Social History Tobacco Use Types Packs/Day Years [...] Pressure - - Pulse - - Temperature 37 ??C (98.6 ??F) 09/26/2003 11:30 AM MEDICAL ACCOUNTING CLERK Respiratory Rate - - Oxygen Saturation - - Inhaled Oxygen Concentration - - Weight 26.2 kg (57 lb 11.2 oz) 09/26/2003 11:30 AM MEDICAL ACCOUNTING CLERK Height - - Body Mass Index - - documented in this encounter Progress Notes 09/26/2003 11:30 AM MEDICAL ACCOUNTING CLERK Addended by: FAIZA BUCKNER on: 10/01/2003,2:25 PM Comment: nuclear reactor engineer Modules accepted: Progress Notes The patient is here with his brother with concerns about persistent complaints of chest disco mfort and cough with 2 week illness and completing a 5 day course of Zithromax. Complains of a stoma chachein the mornings and persistent rhinorrhea and congestion. He has a history of wheezing and toledo s usedan inhaler which he has continued to use about twice per day. On physical exam, he is alert , comfortable, breathing easily. Conjunctiva are clear. Both TMs are translucent. Nose is congested . He complains of tenderness to palpation over the sinus area. Oropharynx is clear. Neck is supple. Chest, good air exchange but his peak flows are noted which are decreased from expected. Abdomen is s oft. ASSESSMENT: Question persistent symptoms with failure of Zithromax. Suggest clinical sinusiti s and reactive airway disease exacerbation. PLAN: Augmentin as prescribed. Start prednisone 20 mg b.i.d. for 5 days. Continue Albuterol. Return if not improving in 3-5 days, further concerns, or any time he worsens. Mariely Osuna M.D./rgace documented in this encounter Nursing Notes 09/26/2003 11:30 AM CST >> OBED BALBUENA 09/26/2003 11:06 am Pain Questionnaire: Is your visit today because of Pain? YES Where is the pain located? chest. How would you describe the pain? intermittent. How long have you had the pain? 1 day(s). On a scale of 1-10 with 10 the worst - how would you rate your pain right now? 8. What have you been using to alleviate the pain? nothing Pamphlet given to patient? no. documented in this encounter Plan of Treatment Not on filedocumented as of this encounter Visit Diagnoses Diagnosis Other acute sinusitis Wheezing documented in this encounter Care Teams Special Machine Operator Relationship Specialty Start Date End Date Cora Holliday PA-C PCP - General 12/21/00 06/25/[address] [place] [address] Ruperto Rey, PhD PCP - Mental Health/Behavioral 12/21/00 XXX NO INFO FOUND XXX Medicine documented as of this encounter
--- OUTSIDE RECORDS SUMMARY | 2022-09-25 10:58 | XMS_ITS | Encounter Summary ---
:1990 Author Organization [place] Address [address] [facility] [place] [address] Care Team Providers Name Role Phone Cora Holliday PA-C Primary Care Provider [phone] Ruperto Rey PhD Unavailable Unavailable Encounter Details Date Type Department Care Team Description 01/03/2004 [facility] Olya Pérez RN in [place] [facility] XXX RETIRED XXX [address] [place] [address] [place] [address] [phone] (Wo rk) Social History Tobacco Use Types Packs/Day Years Used Date Smoking Tobacco: Never Comments: no 2nd hand smoke in the house Alcohol Use Standard Drinks/Week Comments Not Asked 0 (1 standard drink = 0.6 oz pure alcoho l) Sex Assigned at Date Recorded Not on file documented as of this encounter Progress Notes 01/03/2004 11:59 PM WOOD HEEL FLAP RUBBER 01-03-04 NOEL GAVIN CASE NOTE: PATIENT OF DR. FRANKLIN. This date received a request for refill of Noel's Trazodone. He takes 25 mg at HS. I call his pharmacy, [facility] in [place], and authorize a 30 day refill of same with two additional refills. AlhajiKS:katya D: [id number] Pérez RN, XRAY TECH, SWAGE TOOLSETTER, CCJS T: 01-07-04 documented in this encounter Plan of Treatment Not on filedocumented as of this encounter Visit Diagnoses Not on filedocumented in this encounter Care Teams Street And Building Decorator Relationship Specialty Start Date End Date Cora Holliday PA-C PCP - General 12/21/00 06/25/04 [facility] Marty LorenzoKarey Avery [facility] [address] [place] [address] Ruperto Rey, PhD PCP - Mental Health/Behavioral 12/21/00 XXX NO INFO FOUND XXX Medicine documented as of this encounter
--- OUTSIDE RECORDS SUMMARY | 2022-09-25 10:59 | XMS_ITS | Encounter Summary ---
:1990 Author Organization [facility] Address [address] [place] [address] Care Team Providers Name Role Phone Julian Santana M.D. Primary Care Provider Reason for Visit Reason Comments Med Refill Encounter Details Date Type Department Care Team Description 09/04/2022 Refill Department of Family Medicine, Julian Erazo M.D. Med Refill [facility], in [place], [address] [place] [address] [place] [address] [place] [address] [phone] Social History Tobacco Use Types Packs/Day Years Used Date Smoking Tobacco: Every Day Cigarettes 1 Smokeless Tobacco: Never Alcohol Use Standard Drinks/Week Comments Yes 3 (1 standard drink = 0.6 oz pure alcoho l) 3 to 4 times per week Alcohol Habits Answer Date Recorded How often do you have a drink containing alcohol? 2-3 times a week 05/25/2019 How many drinks containing alcohol do you have on a 7 to 9 05/25/2019 typical day when you are drinking? How often do you have six or more drinks on one Monthly 05/25/2019 occasion? Sex Assigned at Date Recorded Male 02/10/2019 3:29 PM CDT documented as of this encounter Plan of Treatment Not on filedocumented as of this encounter Visit Diagnoses Diagnosis Bipolar I Disorder (HCC) documented in this encounter Additional Health Concerns Assessment Noted Time PHQ-9 Depression Total Score: 15 06/06/2019 10:09 AM C DT documented as of this encounter Care Teams Rotary Soil Stabilizer Operator Relationship Specialty Start Date End Date Julian Santana M.D. PCP - General 05/13/17 [address] [place] [address] documented as of this encounter
--- OUTSIDE RECORDS SUMMARY | 2022-09-25 10:59 | XMS_ITS | Encounter Summary ---
:1990 Author Organization [place] Address [address] [place] [address] Care Team Providers Name Role Phone Cora Holliday PA-C Primary Care Provider [phone] Ruperto Rey PhD Unavailable Unavailable Encounter Details Date Type Department Care Team Description 02/27/2001 Budget Counselor [facility] Monster Montano MD in [place] [facility] are [facility] [address] [facility] [address] [place] [address] [address] [place] [address] [phone] (Wo rk) Social History Tobacco Use Types Packs/Day Years Used Date Smoking Tobacco: Never Assessed Sex Assigned at Date Recorded Not on file documented as of this encounter Progress Notes 02/27/2001 11:59 PM CDT SUBJECTIVE: The patient comes in with a history of being ill for a week or so. He has had kind of a stuffy nose,little bit of a headache and some cough and sore throat. Also says at school he is havi ng some chest pain intermittently not associated with exercise, fainting, dizziness, or palpitations. OBJECTIVE: Royal is sitting up and in no acute distress. HEENT exam shows both TMs are clear. T he nares show mild congestion. The oropharynx is pink and moist. Neck is supple without adenopathy. Lungs are clear. Heart: RRR, normal S1, S2 without murmur. Abdomen: Positive bowel sounds, soft, n ontender, without masses, or HSM. LABORATORY/X-RAY RESULTS: Chest x-ray is clear, normal heart size . ASSESSMENT: 1. URI. 2. Chest pain nonspecific. PLAN: Symptomatic care only. Call or return if s ymptoms persist or worsen. Monster Bazan M.D./omar documented in this encounter Plan of Treatment Not on filedocumented as of this encounter Visit Diagnoses Not on filedocumented in this encounter Care Teams Information And Data Architect Analyst Relationship Specialty Start Date End Date Cora Holliday PA-C PCP - General 12/21/00 06/25/[address] [place] [address] Ruperto Rey, PhD PCP - Mental Health/Behavioral 12/21/00 XXX NO INFO FOUND XXX Medicine documented as of this encounter
--- OUTSIDE RECORDS SUMMARY | 2022-09-25 10:59 | XMS_ITS | Encounter Summary ---
:1990 Author Organization [place] Address [address] [place] [address] Care Team Providers Name Role Phone Cora Holliday PA-C Primary Care Provider [phone] Ruperto Rey PhD Unavailable Unavailable Reason for Visit Reason Comments Medication Problem Encounter Details Date Type Department Care Team Description 10/24/2001 Refill [facility] in [place] Medication Problem [facility] [address] [place] [address] Social History Tobacco Use Types Packs/Day Years Used Date Smoking Tobacco: Never Comments: no 2nd hand smoke in the house Alcohol Use Standard Drinks/Week Comments Not Asked 0 (1 standard drink = 0.6 oz pure alcoho l) Sex Assigned at Date Recorded Not on file documented as of this encounter Miscellaneous Notes Telephone Encounter - 10/24/2001 11:59 PM REFINERY OPERATOR HELPER >> MAIKOL VALLECILLO Mon Oct 24, 2001 12:43 PM Rx is faxed to pharmacy. >> LEROY ALLEN Mon Oct 24, 2001 12:14 PM >> CALL RECEIVED. Contact: Lilian Will not take pills has tried everything. These pills are just to big. She had waited to give antibi otic to see if symptoms would go away but they did not so she started the augmentin. Would like Rx f or liquid med called to [facility] please. documented in this encounter Plan of Treatment Not on filedocumented as of this encounter Visit Diagnoses Not on filedocumented in this encounter Care Teams Order Desk Caller Relationship Specialty Start Date End Date Cora Holliday PA-C PCP - General 12/21/00 06/25/04 [facility] [address] [place] [address] Ruperto Rey, PhD PCP - Mental Health/Behavioral 12/21/00 XXX NO INFO FOUND XXX Medicine documented as of this encounter
--- OUTSIDE RECORDS SUMMARY | 2022-09-25 10:59 | XMS_ITS | Encounter Summary ---
:1990 Author Organization [place] Address [address] [facility] [place] [address] Care Team Providers Name Role Phone Cora Holliday PA-C Primary Care Provider [phone] Ruperto Rey PhD Unavailable Unavailable Encounter Details Date Type Department Care Team Description 10/19/2001 Telephone [facility] [address] [place] [address] [place] [address] Social History Tobacco Use Types Packs/Day Years Used Date Smoking Tobacco: Never Comments: no 2nd hand smoke in the house Alcohol Use Standard Drinks/Week Comments Not Asked 0 (1 standard drink = 0.6 oz pure alcoho l) Sex Assigned at Date Recorded Not on file documented as of this encounter Miscellaneous Notes Telephone Encounter - 10/19/2001 11:59 PM PRIZE FIGHTER >> MAIKOL VALLECILLO Wed Oct 19, 2001 5:06 PM Rx is faxed to pharmacy. >> VIKRAM COFFMAN WedOct 19, 2001 3:18 PM >> CALL RECEIVED. Contact: Dayanara: [phone] Seen in on Wednesday for viral URI. Was told to call if symptoms didn't improve. He still has a co ugh, temp around 100, head congestion, & headache. Mom is requesting an antibiotic, one that is given BID if possible. Pharmacy: [facility] Wt: 53lbs NKDA documented in this encounter Plan of Treatment Not on filedocumented as of this encounter Visit Diagnoses Not on filedocumented in this encounter Care Teams Paper Twister Tender Relationship Specialty Start Date End Date Cora Holliady PA-C PCP - General 12/21/00 06/25/04 [facility] [address] [place] [address] [address] [place] [address] Ruperto Rey, PhD PCP - Mental Health/Behavioral 12/21/00 XXX NO INFO FOUND XXX Medicine documented as of this encounter
--- OUTSIDE RECORDS SUMMARY | 2022-09-25 10:59 | XMS_ITS | Encounter Summary ---
:1990 Author Organization [place] Address [address] [facility] [place] [address] Care Team Providers Name Role Phone Cora Holliday PA-C Primary Care Provider [phone] Ruperto Rey PhD Unavailable Unavailable Encounter Details Date Type Department Care Team Description 11/23/2001 Office Visit [facility] Lily Queen PA-C in [place] [facility] are XXX NO INFO FOUND XXX [address] [place] [address] [address] [place] [address] [phone] (Wo rk) Social History Tobacco Use Types [...] Taken Comments Blood Pressure - - Pulse 144 11/23/2001 6:00 PM ORTHOPEDICS PEDIATRIC PHYSICIAN Temperature 37.2 ??C (98.9 ??F) 11/23/2001 6:00 PM ORTHOPEDICS PEDIATRIC PHYSICIAN Respiratory Rate - - Oxygen Saturation - - Inhaled Oxygen Concentration - - Weight 23.6 kg (52 lb) 11/23/2001 6:00 PM ORTHOPEDICS PEDIATRIC PHYSICIAN Height - - Body Mass Index 14.48 11/17/2001 2:30 PM ORTHOPEDICS PEDIATRIC PHYSICIAN Body Mass Index Percentile 11.33 % 11/23/2001 6:00 PM CS T Growth Chart: CDC (Boys, 2-20 Years) documented in this encounter Progress Notes 11/23/2001 6:00 PM ORTHOPEDICS PEDIATRIC PHYSICIAN SUBJECTIVE: The patient is a 11-year-old male brought in by mother today over concerns of sinus infection and congestion. She states he was seen towards the end of September and diagnosed with sinus infection and given Augmentin for 10 days. She forgot to give him the full course of the antibiotic probably discontinued use of it after 4 to 5 days. She states that his symptoms did improve but about aweek or two later he redeveloped the sinus congestion and has had fevers on and off. He's been very irritable and non-cooperative and is having a lot of thick discharge from his nose with an occasiona l cough. They have tried some Sudafed and Advil which only helps for a short period of time. Mother denies any nausea or vomiting from the child. He has been eating normal. No diarrhea. MEDICAL H ISTORY: He has a history of ADHD treated by Dr. Pat. He takes Adderall and Clonidine. He h as no known drug allergies. OBJECTIVE: Well-developed, well-nourished male in no acute distress. V itals - pulse is elevated. Heis afebrile. Weight is 52 pounds. Eyes are clear without injection o r discharge. Ears are normal inappearance. No fluid or injection. No displacement of the landmark s. Nasal mucosa is boggy with thick discharge present. He is tender to palpation over the maxillary s inuses. Oropharynx is mildly erythematous with posterior drainage. There is no enlargement of the t onsils or exudate. Neck is supplewithout adenopathy. Lungs are clear to auscultation bilaterally w ith adequate respiratory effort. Heart - regular rate and rhythm. No murmurs, rubs or gallops. SESSMENT: Sinus infection. PLAN: He is given a prescription for Augmentin 400 per teaspoon suspensi on to take 1 1/2 tsp. BID X10 days. He can continue with Sudafed and Advil as needed as this seems to help. He should follow-upwith Pediatrics if symptoms fail to improve or worsen. WICHO [place]/winnie documented in this encounter Plan of Treatment Not on filedocumented as of this encounter Visit Diagnoses Not on filedocumented in this encounter Care Teams Supervisor Of Guidance And Testing Relationship Specialty Start Date End Date Cora Holliday PA-C PCP - General 12/21/00 06/25/04 [facility] Marty Novak [address] [facility] [address] [facility] [place] [address] Ruperto Rey, PhD PCP - Mental Health/Behavioral 12/21/00 XXX NO INFO FOUND XXX Medicine documented as of this encounter
--- OUTSIDE RECORDS SUMMARY | 2022-09-25 10:59 | XMS_ITS | Encounter Summary ---
:1990 Author Organization [place] Address [address] [place] [address] Care Team Providers Name Role Phone Cora Holliday PA-C Primary Care Provider [phone] Ruperto Rey PhD Unavailable Unavailable Reason for Visit Reason Comments SincereH.Caron Encounter Details Date Type Department Care Team Description 05/03/2001 Office Visit [facility] JONATHON Pat CIT W HYPERACT System in [place] MD Brennan (Primary Dx) Pediatrics [address] [place] [address] [address] [place] [address] [phone] Social History Tobacco Use Types Packs/Day Years Used Date Smoking Tobacco: Never Assessed Sex Assigned at Date Recorded Not on file documented as of this encounter Last Filed Vital Signs Vital Sign Reading Time Taken Comments Blood Pressure 87/56 05/03/2001 9:20 AM CDT Pulse 84 05/03/2001 9:20 AM CDT Temperature - - Respiratory Rate - - Oxygen Saturation - - Inhaled Oxygen Concentration - - Weight 23.1 kg (51 lb) 05/03/2001 9:20 AM CDT Height 127 cm (4' 2) 05/03/2001 9:20 AM CDT Body Mass Index 14.34 05/03/2001 9:20 AM CDT Body Mass Index Percentile 11.30 % 05/03/2001 9:20 AM CD T Growth Chart: [facility] (Boys, 2-20 Years) documented in this encounter Progress Notes 05/03/2001 9:20 AM CDT dictation done Beveler accepted by MAX GUERRA on 05/05/2001 at 1:02 PM ------ MR# [id number] SUBJECTIVE: Royal is now 8 1/2 years old and has completed second grade at [employer]. He has Mrs. Yeager as his teacher. He most likely will be attending the same school next ye ar. He is brought in by his mother today for reevaluation of Attentional Deficit. Since last seen o n 12/29, he has gained 2 1/2 pounds and 3/4 inch. He currently is on Adderall, 15 mg once a day and C lonidine, 0.1 at bedtime. At his last visit, he had an IEP and had a lot of changes in his curric ulum. They also felt his meds needed to be changed and we increased him to 12.5 at that visit. He s till is active, talking out of turn, and gigging. He was placed in other health impaired category b ecause of problems with ferry terminal supervisor memory. He was getting reading, speech, and language help which he is continuing. First quarter he had all 2s and 3s, Ss and S+ but that had dropped a great deal by the time the reports cards inJanuary. Mother subsequent brought in his report for the first seme ster which showed 3s and 2s, S+ in most of the self development areas but the school felt he did need his dosage changed. We had m ksenia him to 12.5 without much success so we moved him subsequently to 15 mg a day. In school now mother feels school has gone well. He still has some anxiety issue s and complaining of some chest pain in stressful situations such as reading in front of the class an d maybe are going to be seeing Doctor Candido again. Mother feels the anxiety issues are getting somew hat worse and we will see what he feels and whether we need to add some medication for that. She meghana d his report cards will be fine. She feels he has come a long way this year and even spoke some line s for the school play. Next year special help will continue. At home he is on the meds adame a nd weekends. The mother says you can markedly tell the difference. She said he sort of bounces off the caballero when he is off his medication. When he is on medicine heseems bored a lot but he can anny ntrate on something and do it. He will not be going to summer school but has entered globa.ly. Palomo lassiter was somewhat decreased and is on 15 mg but she feels she can cope with that. The medicine seeme d to go through the entire school day. His sleep is much better onClonidine. They do not feel that his chest pain is cardiovascular despite the fact that he is on Clonidine but that maybe one issue I will need to clarify after he sees Doctor Candido. OBJECTIVE: Cooperative young man in no distress. The head is normocephalic. TMs are clear. Pupils are equal round and react to light. Extraocular movements are conjugate. No nystagmus. Fundi are benign. Nose is patent. Pharynx is clear. Neck is supple. Thyroid is normal. Chest is clear to auscultationand percussion. Cardiovascular - Nor mal sinus rhythm without murmurs. Abdomen is soft, nontender, no HSM or masses noted. Vascular - Fe morals equal brachials. Skin is clear. Genital Exam is deferred.Extremities - Bones and joints are within normal limits. Neurological examination - Cranial nerves II-XII are intact. Deep tendon ref lexes are 1+ at the biceps, 1+ at the brachioradialis, 2+ at the knees, 1+ at the ankles and symm etrical. No clonus is present. Toes are down-going. Muscle strength and sensation are grossly inta ct. Finger-nose, heel-knee is done without difficulty. There is no past pointing present. There is a fine tremor of outstretched hands. ASSESSMENT: 1. ADHD doing quite well on Adderall, 15 mg a day . 2. Sleep disturbance improved with Clonidine, 0.1. 3. Still some social anxiety symptoms including some recurring chest pain. PLAN: 1. Prescription: Adderall, 15 mg daily. Prescription reads Add erall, 15 mg 1 daily #30. 2. Continue Clonidine, 0.1 at bedtime for sleep. 3. Recheck: Six months. 4 . Visit today of 25 minutes, 20 minutes counseling time. Brennan Pat MD/omar ----- Message ----- From: Brennan Pat Sent: May 04, 2001 1 1:29 AM To: Mirna Hand Thermal Cutter documented in this encounter Plan of Treatment Not on filedocumented as of this encounter Visit Diagnoses Diagnosis Attention deficit disorder with hyperact ivity(314.01) - Primary Attention deficit disorder with hyperact ivity documented in this encounter Care Teams Corral Boss Relationship Specialty Start Date End Date Cora Holliday PAKristenC PCP - General 12/21/00 06/25/[address] [place] [address] Ruperto Rey, PhD PCP - Mental Health/Behavioral 12/21/00 XXX NO INFO FOUND XXX Medicine documented as of this encounter
--- OUTSIDE RECORDS SUMMARY | 2022-09-25 10:59 | XMS_ITS | Encounter Summary ---
:1990 Author Organization [place] Address [address] [facility] [place] [address] Care Team Providers Name Role Phone Cora Holliday PA-C Primary Care Provider [phone] Ruperto Rey PhD Unavailable Unavailable Encounter Details Date Type Department Care Team Description 12/28/2001 Office Visit [facility] Monster Banegas MD in [place] [facility] are [facility] [address] [facility] [address] [place] [address] [address] [place], [place] [address] (Wo rk) Social History [...] - - Temperature 36.7 ??C (98 ??F) 12/28/2001 5:15 PM FIELD SERVICE SUPERVISOR Respiratory Rate - - Oxygen Saturation - - Inhaled Oxygen Concentration - - Weight 23.6 kg (52 lb) 12/28/2001 5:15 PM FIELD SERVICE SUPERVISOR Height - - Body Mass Index - - documented in this encounter Progress Notes 12/28/2001 5:15 PM FIELD SERVICE SUPERVISOR SUBJECTIVE: Royal presents today after hitting his finger with a hammer on Wednesday. He says that it has been somewhat painful and he has a dark discoloration at the base of the nail near the cuticle. Den ies any numbness, tingling. Denies any loss of range of motion, loss of strength or sensation. ON EXAMINATION Royal does have a subungual hematoma of the left fourth finger. Otherwise normal rangeof motion. Minimal tenderness. No significant swelling or redness. Normal strength and sensation throughout. ASSESSMENT: Subungual hematoma. PLAN: We discussed options and we will hold off on any d rainage procedure such as making a hole in the nail. We will simply have him in a finger splint for t he next week and take Advil as needed and ice. Follow up prn. Monster Banerjee M.D./omar D: 002 documented in this encounter Plan of Treatment Not on filedocumented as of this encounter Visit Diagnoses Not on filedocumented in this encounter Care Teams Chief Cloth Finishing Range Operator Relationship Specialty Start Date End Date Cora Holliday PAKristenC PCP - General 12/21/00 06/25/[address] [place] [address] Ruperto Rey, PhD PCP - Mental Health/Behavioral 12/21/00 XXX NO INFO FOUND XXX Medicine documented as of this encounter
--- OUTSIDE RECORDS SUMMARY | 2022-09-25 10:59 | XMS_ITS | Encounter Summary ---
:1990 Author Organization [place] Address [address] [facility] [place] [address] Care Team Providers Name Role Phone Cora Holliday PA-C Primary Care Provider [phone] Ruperto Rey PhD Unavailable Unavailable Reason for Visit Reason Comments Ear Problem still has pain Encounter Details Date Type Department Care Team Description 06/08/2001 Office Visit [facility] Mariely Osuna ACUT E SUPP OTITIS MEDIA NOS; System in [place] [facility] [address] [place] [address] [address] [address] [place], [place] [phone] [address] Social History Tobacco Use Types Packs/Day Years [...] - Pulse - - Temperature 36.7 ??C (98.1 ??F) 06/08/2001 10:30 AM CDT Respiratory Rate - - Oxygen Saturation - - Inhaled Oxygen Concentration - - Weight 22.9 kg (50 lb 8 oz) 06/08/2001 10:30 AM CDT Height - - Body Mass Index - - documented in this encounter Progress Notes 06/08/2001 10:30 AM CDT Royal is a 10 year old male who is here for recheck of otitis media. Current medication: none Recent me dication: ER antibiotic Current symptoms: ear pain Side effects of medication: none Physical Exam: A lert and non-ill appearing. Eyes: conjunctivae clear EARS: External ears and canals are normal. TM's translucent with normal luisa landmarks. No erythema or purulence. Normal mobility. Tympanoscleros is bilaterally. Oropharynx: normal Chest: Easy respirations. Clear to ausculation. Abd: Soft, nonte nder. Skin: No rash Assessment: Acute Otitis Media resolved. Plan: Follow-up as needed or with next well child visit. Problem 2: SUBJECTIVE: C/o headaches which wake him at night screaming. This has occured 2 x in past 6 months. Last 3 weeksago. Complains of forehead pain,and nausea. No vomitin g. C/O of much less severe headaches occasionally at other times of day and asks for advil. These a re not associated with visual changes, changesin strength or coordination. No loss of skills. Also noted had a bruise on his lateral yarsanism area that was associated with a broken blood vessel without trauma. Has occasional noted other small lumps at posterior hair line. I wondering if these are re lated. Followed by Dr. FRIEDMAN and Candido for ADHD, social phobia,anxiety symtoms. Meds as noted. Mom alin byrnethinclementina headaches are related to anxiety, but does note that he screams a lot. Review of sonia ent's family history indicates: NEUROLOGICAL Mother Comment: migraine headaches NEUROLOGICAL Paternal Grandmother Comment: migraine head aches OBJECTIVE: General: Alert, active, cooperative. Temperature 98.1, weight 50 lbs 8 oz (22.9 1 kg). Normal balance coordination/drawing noted in exam room. Eyes are normal. PERRLA, corneas and c onjunctivae normal. Fundi are normal, no papilledema, hemorrhages or exudates. No AV crossing changes . ASSESSMENT: Headaches, possibly migraine. Behavioral problems/with multiple diagnosis under conside ration. PLAN: Headache diary - sample given. Keep for 1 month. Headache trigger list given. Try t o teach independent relaxation skills. Hand out given. Call if increasing severity/frequency of heada ches, or other symptoms emerge. Discuss with Dr. FRIEDMAN in med management. documented in this encounter Plan of Treatment Not on filedocumented as of this encounter Visit Diagnoses Diagnosis Acute suppurative otitis media without s pontaneous rupture of eardrum Headache(784.0) Headache documented in this encounter Care Teams Monorail Operator Relationship Specialty Start Date End Date Cora Holliday PA-C PCP - General 12/21/00 06/25/[address] [place] [address] Ruperto Rey, PhD PCP - Mental Health/Behavioral 12/21/00 XXX NO INFO FOUND XXX Medicine documented as of this encounter
--- OUTSIDE RECORDS SUMMARY | 2022-09-25 10:59 | XMS_ITS | Clinical Summary ---
:1990 Author Organization [facility] Address [address] [place] [id number] Care Team Providers Name Role Phone Julian Santana M.D. Primary Care Provider Source Comments Patient records contain information from all sites at [facility]. For routine questions regarding patient records, call [phone] during business hours, M-F 8:00 AM - 5:00 PM Central Time. Record requests for emergency care only can be directed to [phone] at any time.[facility] Allergies Active Allergy Reactions Severity Noted Date Comments Azithromycin Hives, Rash High 05/12/2005 Hive as child Medications Medication Sig Dispensed Refills Start Date End Date Status buPROPion XL 0 05/18/2022 Active (WELLBUTRIN XL) 150 mg 24 hr tablet buPROPion XL Take 1 90 tablet 0 06/16/2022 Active (WELLBUTRIN XL) tablet (150 150 mg 24 hr mg total) by tabletIndications mouth daily. : Bipolar I Disorder (HCC) hydrOXYzine Take 1 90 tablet 1 06/16/2022 Active (ATARAX) 25 mg tablet (25 tabletIndications mg total) by : Bipolar I mouth every Disorder (HCC) 6 (six) hours as needed for anxiety. traZODone Take 1 90 tablet 0 09/07/2022 12/06/2022 Active (DESYREL) 100 mg tablet (100 tabletIndications mg total) by : Bipolar I mouth at Disorder ([facility]) bedtime. traZODone Take 1 90 tablet 0 06/16/2022 09/04/2022 Disconti nued (DESYREL) 100 mg tablet (100 ( Reorder) tabletIndications mg total) by : Bipolar I mouth at Disorder ([facility]) bedtime. Active Problems Problem Noted Date Dependence Drug Amphetamine 09/18/2021 Blood In Stool 02/08/2019 Hemoptysis 02/08/2019 Hematemesis 02/08/2019 Dependence Polysubstance 01/13/2018 Overview: Methamphetamines. Bipolar I Disorder 10/07/2015 Overview: Bipolar I Disorder, Most Recent Episode (Or Current) Unspecified Bipolar I disorder, most recent episode (or current) unspecified Tic Disorder 10/07/2015 Overview: Tic disorder, unspecified Abuse Tobacco Smoking 10/07/2015 Attention Deficit With Hyperactivity Disorder 10/26/20 05 Other Psychoactive Substance Use Unspecified With Unsp ecified Psychoactive Substance Induced Disorder Encounters Date Type Specialty Care Team Description 09/04/2022 Refill Family Medicine Julian Santana M.D. Med Refill from Last 3 Months Immunizations Name Administration Dates Next Due DTP 06/26/1993, 04/04/1993, 1992 DTP / Hib 04/28/1994 DTaP ([employer], [employer]) 04/29/1998 HepB, Unspecified 11/12/1995, 06/24/1995, 05/21/1995 Hib, Unspecified 06/26/1993, 04/04/1993, 1992 Influenza, Unspecified 12/05/2012, 10/07/2005 MMR 04/29/1998, 04/28/1994 OPV 04/29/1998, 04/28/1994, 04/04/1993, 10/29 Td (Adult), adsorbed 07/17/2005 Tdap 11/01/2013, 06/20/2012 Family History Medical History Relation Name Comments Asthma Brother Bipolar disorder Brother Drug abuse Brother Alcohol abuse Father Asthma Father Bipolar disorder Father Depression Father Drug abuse Father Mental illness Father Suicide Father Emphysema of lung Grandfather paternal Heart attack Grandmother 1 paternal Heart murmur Grandmother 1 paternal History of - migraine Grandmother 1 paternal Hypertension Grandmother 1 paternal Cataracts Grandmother 2 maternal Alcohol abuse Mother Asthma Mother Bipolar disorder Mother Drug abuse Mother History of - migraine Mother Glaucoma Uncle maternal Suicide Uncle maternal Macular degeneration Neg Hx Retinal degeneration Neg Hx Retinal detachment Neg Hx Strabismus Neg Hx Relation Name Status Comments Brother Father Grandfather paternal Grandmother 1 paternal Grandmother 2 maternal Mother Uncle maternal Social History Tobacco Use Types Packs/Day Years Used Date Smoking Tobacco: Every Day Cigarettes 1 Smokeless Tobacco: Never Tobacco Cessation: Ready to Quit: Not As ked; Counseling Given: Not Answered Alcohol Use Standard Drinks/Week Comments Yes 3 [...] Date Recorded Male 02/10/2019 3:29 PM CDT Last Filed Vital Signs Vital Sign Reading Time Taken Comments Blood Pressure 110/72 06/16/2022 2:15 PM CDT Pulse 98 06/16/2022 2:15 PM CDT Temperature 36.4 ??C (97.5 ??F) 06/16/2022 2:15 PM CDT Respiratory Rate 16 06/16/2022 2:15 PM CDT Oxygen Saturation 99% 04/28/2022 4:45 PM CDT Inhaled Oxygen Concentration - - Weight 93.7 kg (206 lb 9.1 oz) 06/16/2022 2:15 PM CDT Height 175.3 cm (5' 9) 12/12/2021 6:05 PM AUTOMOTIVE SALES PROFESSIONAL Body Mass Index 30.51 12/12/2021 6:05 PM AUTOMOTIVE SALES PROFESSIONAL Plan of Treatment Health Maintenance Due Date Last Done Comments HIV Screening 1992 Hepatitis C Screening 1992 Tobacco Cessation counseling 1992 COVID-19 Vaccine (#1) 03/03/1993 Hepatitis A Vaccines (1 of 2 - 1993 Risk 2-dose series) Pneumococcal vaccine (0-64 years) 1998 (1 - PCV) Influenza Vaccine (#1) 2022 12/05/2012, 12/05/2012, 12/05/2012, Additional history exists DTaP,Tdap,and Td Vaccines (8 - Td 11/01/2023 11/01/2013, , or Tdap) 07/17/2005, Additional history exists Hepatitis B Vaccines Completed 11/12/1995, 06/24/1995, 05/21/1995 Glucose Test for Med Monitoring Discontinued 04/28/2022, 11/29, 03/05/2019, Additional history exists Depression Screening (Annual Completed 06/16/2022 PHQ-2) Insurance Payer Benefit Plan / Subscriber ID Effective Phone Address T ype Group Dates MEDICARE MEDICARE A AND [id number] 2012-Pres [address] [place] [address] [place] [employer] [id number] 2019-Prese [address] Medicaid HMO [facility] [place] [address] [place] [id number] Advance Directives For more information, please contact: [phone] Latest Code Status on File Code Status Date Activated Date Inactivated Comments Full Code 05/10/2019 4:08 PM 05/10/2019 6:13 PM Question Answer Comments Full Code: Discussed Care Teams Lock And Dam Repairer Relationship Specialty Start Date End Date Julian Santana M.D. PCP - General 05/13/17 [address] [place] [phone]
--- OUTSIDE RECORDS SUMMARY | 2022-09-25 10:59 | XMS_ITS | Encounter Summary ---
:1990 Author Organization [facility] Address [address] [facility] [place] [address] Care Team Providers Name Role Phone Cora Holliday PA-C Primary Care Provider [phone] Ruperto Rey PhD Unavailable Unavailable Reason for Visit Reason Comments AKelliH.Caron Encounter Details Date Type Department Care Team Description 11/17/[address] [facility] JONATHON Pat CIT W HYPERACT System in [place] MD Brennan (Primary Dx) Psychology [address] [facility] [address] [place] [phone] Social History Tobacco Use Types Packs/Day Years Used Date Smoking Tobacco: Never Comments: no 2nd hand smoke in the house Alcohol Use Standard Drinks/Week Comments Not Asked 0 (1 standard drink = 0.6 oz pure alcoho l) Sex Assigned at Date Recorded Not on file documented as of this encounter Last Filed Vital Signs Vital Sign Reading Time Taken Comments Blood Pressure 90/56 11/17/2001 2:30 PM ARCHITECT Pulse 103 11/17/2001 2:30 PM ARCHITECT Temperature - - Respiratory Rate - - Oxygen Saturation - - Inhaled Oxygen Concentration - - Weight 23.8 kg (52 lb 8 oz) 11/17/2001 2:30 PM ARCHITECT Height 127.6 cm (4' 2.25) 11/17/2001 2:30 PM ARCHITECT Body Mass Index 14.62 11/17/2001 2:30 PM ARCHITECT Body Mass Index Percentile 13.84 % 11/17/2001 2:30 PM CS T Growth Chart: CDC (Boys, 2-20 Years) documented in this encounter Progress Notes 11/17/2001 2:30 PM ARCHITECT Addended by: JAIMIE LOPEZ on: 11/28/2001,7:17 AM Comment: bobbin cleaner Modules accepted: Shantanu galicia Notes dictation done Royal [id number] SUBJECTIVE: Royal is 11 years old and in 3r d grade at [employer]. He has Mrs. Sotomayor as his teacher. He is brought in by his mother today fo r reevaluation of Attention Deficit. The patient currently is on Adderall 15 mg once a day, Clonidine 0.1 at bedtime. In school things are going pretty well. His report card has all 3's and 2's. Mrs. Cyndy Dee, however, has called a couple of times and said that she didn't feel it was working. His светлана f development scores were normal, except he had a 1 in listening well. We did decide today to go to e xtended release 30 mg. The patient enjoys school and gets along with kids. There is one boy who will get him in trouble. They have moved him and things are better. At home he eats well. His homework is sometimes an issue. The Clonidine is going good. On a few occasions they have missed it like when he went to his aunt's house and he was up until 3:00 AM so he needs it. They have not seen Dr. Candido green more as he just won't participate very well. She thinks theanxiety has somewhat lessened. He no l onger has pain in his right groin. OBJECTIVE: Cooperative young man in no distress. The head is nor mocephalic. TM's are clear. Pupils are equal, round and react to light. Extraocular movements are co njugate. No nystagmus. Fundi are benign. Nose is patent. Pharynx is clear. Neck is supple. Thyroi d is normal. Chest is clear to ausculta tion and percussion. Cardiovascular - Normal sinus rhythm wi thout murmurs. Abdomen is soft, nontender, no HSM or masses noted. Vascular - femorals equal brachi als. Skin is clear. Genitalia -Exam deferred. Extremities - Bones and joints are within normal limi ts. Neurological examination - Cranial nerves II- XII are intact. Deep tendon reflexes are 1+ at the biceps, 1+ at the brachioradialis, 2+ at the knees, 1+ at the ankles and symmetrical. No clonus is present. Toes are down-going. Muscle strength and sensation are without difficulty. There is no pa st pointing present. There is a fine tremor of outstretched hands. ASSESSMENT: 1) ADHD doing fair ly well. PLAN: 1. Adderall 30 mg XR one daily #30. 2. Clonidine 0.1 daily #30. 3. Recheck in [facility]. 4. Visit today of 25 minutes, 20 minutes of counseling time. RNS:katya D: [id number] Pat M.D. T: 11-26-01 documented in this encounter Plan of Treatment Not on filedocumented as of this encounter Visit Diagnoses Diagnosis Attention deficit disorder with hyperact ivity(314.01) - Primary Attention deficit disorder with hyperact ivity documented in this encounter Care Teams Desk Officer Relationship Specialty Start Date End Date Cora Holliday PA-C PCP - General 12/21/00 06/25/[address] [place] [address] Ruperto Rey, PhD PCP - Mental Health/Behavioral 12/21/00 XXX NO INFO FOUND XXX Medicine documented as of this encounter
--- OUTSIDE RECORDS SUMMARY | 2022-09-25 10:59 | XMS_ITS | Encounter Summary ---
:1990 Author Organization [facility] Address [address] [facility] [place] [address] Care Team Providers Name Role Phone Cora Holliday PA-C Primary Care Provider [phone] Ruperto Rey PhD Unavailable Unavailable Encounter Details Date Type Department Care Team Description 02/04/2001 Emg Technician [facility] Raquel Pat, in [place] Pediatri sinan [place] [address] [phone] [address] [place], [place] [address] (Wo rk) Social History Tobacco Use Types Packs/Day Years Used Date Smoking Tobacco: Never Assessed Sex Assigned at Date Recorded Not on file documented as of this encounter Progress Notes 02/04/2001 11:59 PM CONDITIONER TUMBLER OPERATOR MR# [id number] School Psychology Report 12/20/00 - Second Grade -- He received special ed services in [facility] after Burial Needs Salesperson Special Education for developmental delays in languag e and cognition. He was dismissed from special education at the end of kindergarten. His speech and language testing fell in the very low average range and he did not met eligibility. He has received [employer] services for reading since first grade. Classroom and [employer] teachers are concerned abo ut his academic struggles. The patient was on Adderall, 10 mg a day at the time of the testing. Cl assroom Observations divinity teacher -- Attended 54 percent of the time, classmates 85 percent of the time . Lyons his inattentiveness maybe a cause of his low reading ability. Jewelry Sales - He appeare d to be daydreaming while his teacher was reading. Latisha Intelligence Scale for Children III - - Verbal, 76; in the slow learner range 5th percentile. Performance, 94; average. Full Scale, 83; s low learner area. The patient since last tested had a drop in his verbal and an increase in his perf ormance. He has trouble remembering information he hears and has difficulty with verbal expression b oth areas fall in the delayed range. He has great difficulty tuning into verbal and visual informat ion when it is first presented and is very delayed at the second percentile. Short term memory is at the 20th percentile. terminal supervisor is at the 2nd percentile. Benoit-John -- Broad reading and r eading comprehension are very delayed at 1.2, 1.3, and the remainder of his score are all still at th e first grade level. His math scores are somewhat more advanced at 1.9. Clinical Evaluation of Emilia lobo Fundamentals -- Expressive language is delayed, total language is delayed at the 3rd percentil e. Measure indicates that his talking skills are hindering his participations and success in classro om. Chris Picture Vocabulary Test -- Delayed range. Expressive Vocabulary Test -- Delayed range. Rosette Forms were completed that showed his medication was not as effective as it was a month ago. Since that time, we have increased his dosage. The patient met the criteria for other health impai red. Received speech and language therapy Services. Brennan Pat M.D./omar documented in this encounter Plan of Treatment Not on filedocumented as of this encounter Visit Diagnoses Not on filedocumented in this encounter Care Teams Substitute Nurse Relationship Specialty Start Date End Date Cora Holliday PA-C PCP - General 12/21/00 06/25/04 [facility] [place] [facility] [address] [place] [address] Ruperto Rey, PhD PCP - Mental Health/Behavioral 12/21/00 XXX NO INFO FOUND XXX Medicine documented as of this encounter
--- OUTSIDE RECORDS SUMMARY | 2022-09-25 10:59 | XMS_ITS | Encounter Summary ---
:1990 Author Organization [facility] Address [address] [facility] [place] [address] Care Team Providers Name Role Phone Cora Holliday PA-C Primary Care Provider Ruperto Rey PhD Unavailable Unavailable Encounter Details Date Type Department Care Team Description 10/16/2001 Office Visit [facility] Mariely Osuna MD in [place] [facility] are [facility] [address] [facility] [address] [place] [phone] [address] [place], [place] [address] (Wo rk) Social History [...] Taken Comments Blood Pressure - - Pulse 104 10/16/2001 9:00 AM GAS COLLECTION SYSTEM OPERATOR Temperature 36.6 ??C (97.8 ??F) 10/16/2001 9:00 AM GAS COLLECTION SYSTEM OPERATOR Respiratory Rate - - Oxygen Saturation - - Inhaled Oxygen Concentration - - Weight 24 kg (53 lb) 10/16/2001 9:00 AM GAS COLLECTION SYSTEM OPERATOR Height - - Body Mass Index - - documented in this encounter Progress Notes 10/16/2001 9:00 AM GAS COLLECTION SYSTEM OPERATOR SUBJECTIVE: Royal comes in with his mother with concerns about nasal congestion that has begun over th e past twoto three days. He has had rhinorrhea, congestion, cough, and began complaining of a scrat clementina throatthis morning. He has had no measured fever. He has had intermittent ibuprofen as needed. His other medications are noted. There has been pneumonia and sinus infection in the household. He was totally well until two to three days ago. He denies ear pain, abdominal pain, and he has no histo ry of wheezing or asthma. ON PHYSICAL EXAM: He is alert, comfortable. His conjunctivae are clear. He has mild venostasis beneath the eyes. Both TMs are translucent with tympanosclerosis but no erythem a or purulence. Nose is mildly erythematous with clear discharge. Oropharynx: Mild posterior pharyn geal erythema, no tonsils. Neck is supple without significant adenopathy. Chest: Good air entry, cl ear to auscultation. His abdomen is soft. CV: RRR, no murmur. ASSESSMENT: Viral URI. PLAN: Sympto matic treatment. I recommend that mom call me if he does not follow the expected course for a viral s yndrome and sheknows how to reach me this week. Mariely Osuna M.D./omar D: 09/29 documented in this encounter Plan of Treatment Not on filedocumented as of this encounter Visit Diagnoses Not on filedocumented in this encounter Care Teams Lamination Operator Relationship Specialty Start Date End Date Cora Holliday PA-C PCP - General 12/21/00 06/25/[address] [place] [address] Ruperto Rey, PhD PCP - Mental Health/Behavioral 12/21/00 XXX NO INFO FOUND XXX Medicine documented as of this encounter
--- OUTSIDE RECORDS SUMMARY | 2022-09-25 10:59 | XMS_ITS | Encounter Summary ---
:1990 Author Organization [facility] Address [address] [facility] [place] [place] [address] Care Team Providers Name Role Phone Cora Holliday PA-C Primary Care Provider Ruperto Rey PhD Unavailable Unavailable Reason for Visit Reason Comments SincereH.Caron Encounter Details Date Type Department Care Team Description 07/28/2001 Office Visit [facility] JONATHON Pat CIT W HYPERACT System in [place] MD Brennan (Primary Dx) Pediatrics [address] [facility] [address] [place] [address] [phone] Social History Tobacco Use Types Packs/Day Years Used Date Smoking Tobacco: Never Comments: no 2nd hand smoke in the house Alcohol Use Standard Drinks/Week Comments Not Asked 0 (1 standard drink = 0.6 oz pure alcoho l) Sex Assigned at Date Recorded Not on file documented as of this encounter Last Filed Vital Signs Vital Sign Reading Time Taken Comments Blood Pressure 95/58 07/28/2001 10:10 AM CDT Pulse 75 07/28/2001 10:10 AM CDT Temperature - - Respiratory Rate - - Oxygen Saturation - - Inhaled Oxygen Concentration - - Weight 22.7 kg (50 lb) 07/28/2001 10:10 AM CDT Height 128.3 cm (4' 2.5) 07/28/2001 10:10 AM CDT Body Mass Index 13.78 07/28/2001 10:10 AM CDT Body Mass Index Percentile 3.58 % 07/28/2001 10:10 AM C DT Growth Chart: CDC (Boys, 2-20 Years) documented in this encounter Progress Notes 07/28/2001 10:10 AM CDT dictation done Senior Microsoft Consultant accepted by JAIMIE LOPEZ on 08/08/2001 at 10:16 AM ------ SUBJECTIVE: Royal is 10 years old and will be going into 3rd grade at [employer]. He is brought in by his mother for reevaluation of his weight and attentional deficit. He has continued on Adderall 15 mg once a day, Clonidine 0.1 at bedtime. His weight is down from 150 pounds today. Height is up1 /2 inch. At home, he is sleeping much better on his Clonidine. He was without it one day and was u p until 3 AM. For his anxiety issues he is being seen by Dr. Rey and they are beginning to work o n that. Hewas in the Emergency Room two weeks ago and developed lower stomach ache and back ache in the morning. He was seen there and apparently just had a urinalysis done and the symptoms resolved. He is also complaining of some right groin pain periodically. He does have a well healed herniorrhaph y scar there and no evidence of hernia. Testicle appears normal, which I suspect may be just due to s ome adhesions and that are being disrupted by his growth. Overall things seem to be on an even keel n ow, parti cularly now that we have him sleeping better and he is working with Dr. Rey. We will con tinue tomonitor his weight. OBJECTIVE: Cooperative young man in no distress. The head is normocepha lic. TMs are clear. Pupils are equal round and react to light. Extraocular movements are conjugat e. No nystagmus. Fundi are benign. Nose is patent. Pharynx is clear. Neck is supple. Thyroid is normal. Chest is clear to auscultation and percussion. Cardiovascular - Normal sinus rhythm withou t murmurs. Abdomen is soft, nontender,no HSM or masses noted. Vascular - Femorals equal brachials. Skin is clear. Genitalia - Prepubertal circumcised male with testes descended bilaterally and norm al. Extremities - Bones and joints are within normal limits. Neurological examination - Cranial nerv es II-XII are intact. Deep tendon reflexes are 1+ at the biceps, 1+ at the brachioradialis, 3+ at the knees, 1+ at the ankles and symmetrical.No clonus is present. Toes are down- going. Muscle s trength and sensation are grossly intact. Finger-nose, heel-knee is done without difficulty. There is no past pointing present. There is a fine tremor on extended hands. ASSESSMENT: ADHD who seems t o be doing fairly well now, but may be having some anxiety symptoms prior to school starting. PLAN: 1. Prescription: Continue to monitor him at three months. Continue on Adderall 15 mg one daily #30 .Mother was informed about our study coming up. Clonidine 0.1 at bedtime. 2. Recheck: Three months. 3. Visit today of 25 minutes, 20 minutes of counseling time. Brennan Pat MD/ katya ----- Message ----- From: Brennan Pat Sent: Jul 28, 10:40 AM To: Mirna Optical Manufacturing Technician documented in this encounter Nursing Notes 07/28/2001 10:10 AM CDT >> DIEGO CEBALLOS 07/28/2001 10:06 am slight loss of appetite documented in this encounter Plan of Treatment Not on filedocumented as of this encounter Visit Diagnoses Diagnosis Attention deficit disorder with hyperact ivity(314.01) - Primary Attention deficit disorder with hyperact ivity documented in this encounter Care Teams Dispute Resolution Specialist Relationship Specialty Start Date End Date Cora Holliday PA-C PCP - General 12/21/00 06/25/[address] [place] [address] Ruperto Rey, PhD PCP - Mental Health/Behavioral 12/21/00 XXX NO INFO FOUND XXX Medicine documented as of this encounter
--- OUTSIDE RECORDS SUMMARY | 2022-09-25 11:00 | XMS_ITS | Encounter Summary ---
:1990 Author Organization [facility] Address [address] [place] [address] Care Team Providers Name Role Phone Julian Santana M.D. Primary Care Provider Encounter Details Date Type Department Care Team Description 03/18/2021 Orders Only [facility] PCP [facility] Sa richa Nichols M.D. [address] [place], [place] [phone] (Wo rk) Social History Tobacco Use Types Packs/Day Years Used Date Smoking Tobacco: Every Day Cigarettes 1 Smokeless Tobacco: Never Alcohol Use Standard Drinks/Week Comments Yes 3 (1 standard drink = 0.6 oz pure alcoho l) Alcohol Habits Answer Date Recorded How often [...] Diagnoses Not on filedocumented in this encounter Additional Health Concerns Assessment Noted Time PHQ-9 Depression Total Score: 15 06/06/2019 10:09 AM C DT documented as of this encounter Care Teams Stepdown Nurse Relationship Specialty Start Date End Date Julian Santana M.D. PCP - General 05/13/17 [address] [place] [phone] documented as of this encounter
--- OUTSIDE RECORDS SUMMARY | 2022-09-25 11:00 | XMS_ITS | Encounter Summary ---
:[address] [facility] Address [address] [place] [address] Care Team Providers Name Role Phone Julian Santana M.D. Primary Care Provider Reason for Visit Reason Comments Chest Pain Started two nights ago, pain comes and goes. Currently 5/10 chest pain radiating into the left arm. States he does have a heart hx but it is not on the [facility] file. Stated SOB only when asked. Encounter Details Date Type Department Care Team Description 04/28/2022 Emergency [place] [facility] Juan Gutierrez [facility] (Primary Dx) Department D.O. 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 - 04/28/2022 4:34 PM CDT Follow-up with primary care as needed. Your symptoms are likely related to your chest wall. You may take ibuprofen, 600 mg, 3 times daily with meals for pain. Please return to the emergency department for any worsening signs or symptoms. AttachmentsThe following attachments cannot be sent through Care Everywhere. Nonspecific Chest Pain Adult (Jamaican)Chest Wall Pain (Jamaican)documented in this encounter Medications at Time of Discharge Medication Sig Dispensed Refills Start Date End Date haloperidoL (HALDOL) 5 mg Take 5 mg by mouth 0 06/16/2022 tablet 2 (two) times a day. nicotine (NICODERM CQ) 14 Place 1 patch on 30 patch 1 08/3006/16/2022 mg/24 hr patch the skin daily. documented as of this encounter ED Notes Juan Gutierrez D.O. - 04/28/2022 1:33 PM CDT SUBJECTIVE CHIEF COMPLAINT/REASON FOR VISIT Chest pain HISTORY OF PRESENT ILLNESS 31-year-old male with a history of medical problems including bipolar disorder, smoking tobacco abuse and polysubstance abuse who presents for evaluation of chest pain. Patient states he first felt the chest pain 2 nights ago. Pain had then resolved. However, pain returned today this morning. Pain has been constant since. Pain located to his left chest and does have pain radiate into his left arm aswell. Patient without any associated back pain. States he does feel little short of breath with the chest pain. Does state he has some increase in chest pain with deep breath. Denies any associated cough. No fevers or chills. Patient states that he did have some chest pain like this when he was 26. States that he was doing drugs at that time at his house, methamphetamine. States that he became unresponsive and his friend did CPR. Patient noted chest pain like he has now after receiving CPR at that time. Patient states that he never went into the hospital at that time. Patient states he has not usedany drugs for 2 weeks as he currently is incarcerated. Patient without any previous history of bloodclot. No extremity swelling. No recent surgery/trauma. No hemoptysis. REVIEW OF SYSTEMS Constitutional: No fevers or chills. Skin: No rash or pruritus. Eye: No pain or vision changes. HENT: No sore throat. No nasal congestion. Respiratory: Symptoms as in HPI. No cough. Cardiovascular: Symptoms as in HPI. No syncope. Gastrointestinal: No abdominal pain, nausea or vomiting. No diarrhea or constipation. Genitourinary: No dysuria or hematuria. Musculoskeletal: No back pain. Symptoms as in HPI. Neurologic: No headache or dizziness. No numbness or tingling. OBJECTIVE Initial Vitals Temp Pulse Rate Heart Rate Resp Rate Blood Pressure SpO2 -- 04/28/22 1345 04/28/22 1345 04/28/22 1345 04/28/22 1345 04/28/22 1345 66 67 13 115/71 98 % Pain Score 04/28/22 1320 5 - Moderate pain PHYSICAL EXAMINATION Nursing note and vitals reviewed. General Appearance: Well-appearing. No acute distress. Skin: Color normal. No Rash. Warm/dry. Head: Normocephalic and atraumatic. ENT: Moist mucous membranes. Pupils are equal, round, and reactive to light and accommodation. Posterior oropharynx clear. Neck: Nontender. Supple. Cardiovascular: Regular rate and rhythm. No murmur. Pulmonary/Chest: Airway patent. Breath sounds equal. Clear to auscultation. No respiratory distress.Left lower parasternal chest wall with tenderness to palpation. Abdominal: Non-tender. Soft. Normal bowel sounds. Musculoskeletal: Normal range of motion. Strength Intact. No lower extremity edema/erythema/tenderness bilaterally. Neurologic: Alert and oriented to person, place and time. Normal sensation. Mental status: Appropriate. ED Medication Administration from 04/28/2022 1313 to 04/28/2022 1640 Date/Time Order Dose Route Action Action by 04/28/2022 1402 ketorolac injection 15 mg (TORADOL) 15 mg intravenous Given Caron Laguna 04/28/2022 1402 lidocaine 5 % 1 patch (LIDODERM) 1 patch transdermal Medication Applied Caron Laguna ASSESSMENT/PLAN All critical diagnoses considered for patient presentation. Patient presents for evaluation of chest pain. Vitals normal upon arrival. Initial symptom onset 2 days ago with return of symptoms this morning. Patient with similar chest pain following receiving bystander CPR 5 years ago at home. Unclear etiology of his symptoms at that time as he was not evaluated. Patient's symptoms today are reproducible on exam with point tenderness to left parasternal region.With reproducible pain, do suspect more of a musculoskeletal etiology. However, with associated symptoms and previous reported history, will obtain cardiac labs and chest x-ray. EKG obtained reviewed upon arrival. Patient perc negative for PE. Give dose of Toradol and place lidocaine patch in attempt at symptomatic relief. Plan of care discussed with patient who is agreeable. PERC Rule Age >=50: No Heart rate >=100: No O2 saturation on room air <95%: No Prior history of venous thromboembolism: No Trauma or surgery within 4 weeks: No Hemoptysis: No Exogenous estrogen: No Unilateral leg swelling: No ED Course as of 04/28/223 e April 28, 2022 1335 ECG 12 Lead Sinus bradycardia. Rate 55. No ST segment elevation. No ectopy. No significant change when compared to previous EKG from 03/02/2019. 1424 Hemoglobin: 16.4 1424 Hematocrit(!): 48.7 1424 Platelet Count: 250 1424 White Blood Cell Count: 8.4 1424 Neutrophils: 5.80 1433 Basic Metabolic Panel: Potassium, P 4.9 Sodium, P 139 Chloride, P 101 Bicarbonate, P 27 Anion Gap, P 11 BUN (Blood Urea Nitrogen), P 17 Creatinine, P 0.90 eGFR-Black/ >90 eGFR Non-Black/ >90 Calcium, Total, P 9.5 Glucose, P 89 1434 DX Chest Portable 1 View Per radiologist report: No focal consolidation or pleural effusion. Normal heart size. ?? May 16, 2012 comparison. ?? 1439 Troponin T, Baseline, 5th gen: 8 Reassuring initial troponin, however with onset of chest pain within the past 6 hours, will obtain 2hour troponin. 1612 Troponin T, 2 hr, 5th gen: <6 1612 2H Delta: -3 1612 2H Delta Interp: Not Changing 1632 Reassuring repeat troponin with onset of his chest pain today. Patient updated on results. Patient's presenting symptoms likely musculoskeletal in etiology with reproducible left anterior chest wall tenderness on exam. Plan for NSAIDs as needed for pain. Concerning signs and symptoms to return tot emergency department discussed. All questions answered and will discharge home. Final Diagnoses: as of 04/28/222232 Pain Chest Juan Gutierrez D.O. 04/28/222235 documented in this encounter Plan of Treatment Not on filedocumented as of this encounter Procedures Procedure Name Priority Date/Time Associated Comments Diagnosis TROPONIN T, Timed 04/28/2022 3:37 Results for this 2H/6H, 5TH GEN, P PM CDT procedure are in the results section. DX CHEST PORTABLE RAD - Semiurgent 04/28/2022 2:10 Res ults for this 1 VIEW (Fast; most ED PM CDT procedure are in patients; some the results inpatients) section. TROPONIN T, STAT 04/28/2022 1:58 Results for this BASELINE, 5TH PM CDT procedure are in GEN, P the results section. CBC WITH STAT 04/28/2022 1:58 Results for this DIFFERENTIAL, B PM CDT procedure ar e in the results section. BASIC METABOLIC STAT 04/28/2022 1:58 Results f or this PANEL, S/P PM CDT procedure are i n the results section. ECG STAT 04/28/2022 1:17 Results for this PM CDT procedure are i n the results section. documented in this encounter Results Troponin T, 2H/6H, 5th Gen (04/28/2022 3:37 PM CDT) P athologist Signature Troponin T, 2 <6 <=15 ng/L 04/28/2022 [facility] hr, 5th gen 4:08 PM CDT Comment: Biotin has been identified by the siva riggs as a potential interfering substance. Higher concentrations of biotin may be found in multivitamins, toled[place] ir/nail supplements, and workout supplements. If the result d oes not match clinical observations, repeat testing af ter patient refrains from the use of supplements for at least 12 hours. 2H Delta -3 ng/L 04/28/2022 4:08 PM CDT [facility] 2H Delta Interp Not Changing 04/28/2022 4:08 PM CD T [facility] Troponin T, 6 hr, 5th gen CANCELED ng/L 04/28/2022 4:0 8 PM CDT [facility] Comment: Result canceled by the lissett romano. Specimen Anatomical Collection Method Collection Time Receive d Time (Source) Location / / Volume Laterality Blood (Blood, 04/28/2022 3:37 PM 04/28/20 3:44 Venous) CDT PM CDT Narrative [facility] - 04/28/2022 4:08 PM CDT Specimen Information: Specimen ID: [id number] Specimen Type: Blood Specimen Collection Start Date: 04/28/20 ??3:37 PM Specimen Received Date: 04/28/2022 ??3:4 4 PM Specimen ID: [id number] Specimen Type: Blood Juan Gutierrez D.O. LAB BLOOD TROPONIN Performing Organization Address City/State/ZIP Code Phon e Number [facility] [address] [place] [address], [place] [phone] [facility] [place] [address] System in [address] DX Chest Portable 1 View (04/28/2022 2:10 PM CDT) Anatomical Region Laterality Modality Chest, Thoracic RST LOS, Thoracic ARZ LOS, Thoracic N/A Computed Radiography FLA LOS Specimen (Source) Anatomical Collection Method Collection Time Re ceived Time Location / / Volume Laterality 04/28/2022 2:14 PM CDT Impressions 04/28/2022 2:26 PM CDT No focal consolidation or pleural effusion. Normal heart size. May 16, 2012 comparison. Narrative 04/28/2022 2:26 PM CDT EXAM: DX CHEST PORTABLE 1 VIEW Procedure Note Joshua Walsh M.D. - 04/28/2022Forma tting of this note might be different from the original. EXAM: DX CHEST PORTABLE 1 VIEW IMPRESSION: No focal consolidation or pleural effusi on. Normal heart size. May 16, 2012 comparison. Juan Gutierrez D.O. IMG DIAGNOSTIC IMAGING PROCE SEBAS Troponin T, Baseline, 5th gen (04/28/2022 1:58 PM CDT) athologist Signature Troponin T, 8 <=15 ng/L 04/28/2022 [facility] Baseline, 5th 2:37 PM CDT gen Comment: Biotin has been identified by the siva riggs as a potential interfering substance. Higher concentrations of biotin may be found in multivitamins, toledo ir/nail supplements, and workout supplements. If the result d oes not match clinical observations, repeat testing af ter patient refrains from the use of supplements for at least 12 hours. Specimen Anatomical Collection Method Collection Time Receive d Time (Source) Location / / Volume Laterality Blood (Blood, 04/28/2022 1:58 PM 04/28/20 2:04 Venous) CDT PM CDT Juan Gutierrez D.O. LAB BLOOD TROPONIN Performing Organization Address City/State/ZIP Code Phon e Number [facility] [address] [place] [address] [phone] [facility] [place] [address] System in [place] [address] [place] [address] Basic Metabolic Panel (04/28/2022 1:58 PM CDT) athologist [facility] Potassium, P 4.9 3.6 - 5.2 04/28/2022 [facility] mmol/L 2:25 PM CDT Sodium, P 139 135 - 145 04/28/2022 [facility] mmol/L 2:25 PM CDT Chloride, P 101 98 - 107 04/28/2022 [facility] mmol/L 2:25 PM CDT Bicarbonate, P 27 22 - 29 04/28/2022 [facility] mmol/L 2:25 PM CDT Anion Gap, P 11 7 - 15 04/28/2022 [facility] 2:25 PM CDT BUN (Blood Urea 17 8 - 24 04/28/2022 [facility] Nitrogen), P mg/dL 2:25 PM CDT Creatinine 0.90 0.74 - 04/28/2022 [facility] 1.35 mg/dL 2:25 PM CDT eGFR-Black/Afric >90 >=60 04/28/2022 [facility] an Gabonese mL/min/BSA 2:25 PM CDT Comment: ----ADDITIONAL INFORMATION---- Estimated GFR calculated using the 2009 CKD_EPI creatinine equation. eGFR Non-Black/ >90 >=60 mL/min/BSA 04/28/2022 2:25 PM CDT [facility] Comment: ----ADDITIONAL INFORMATION---- Estimated GFR calculated using the 2009 CKD_EPI creatinine equation. Calcium, Total, P 9.5 8.6 - 10.0 mg/dL 04/28/2022 2:25 PM CDT [facility] Glucose, P 89 70 - 140 mg/dL 04/28/2022 2:25 PM CDT [facility] Specimen Anatomical Collection Method Collection Time Receive d Time (Source) Location / / Volume Laterality Blood (Blood, 04/28/2022 1:58 PM 04/28/20 2:04 Venous) CDT PM CDT Juan Gutierrez D.O. LAB BLOOD ADD-ON Performing Organization Address City/State/ZIP Code Phon e Number [facility] [address] [place] [address] [phone] [facility] [place] [address] System in [address] (ABNORMAL) CBC with Differential, Blood (04/28/2022 1:58 PM CDT) [facility] Method Time Signature Hemoglobin 16.4 13.2 - 04/28/2022 [facility] 16.6 g/dL 2:16 PM CDT Hematocrit 48.7 (H) 38.3 - 04/28/2022 [facility] 48.6 % 2:16 PM CDT Erythrocytes 5.54 4.35 - 04/28/2022 [facility] 5.65 2:16 PM CDT x10(12)/L MCV 87.9 78.2 - 04/28/2022 [facility] 97.9 fL 2:16 PM CDT RBC Distrib Width 12.3 11.8 - 04/28/2022 [facility] 14.5 % 2:16 PM CDT Platelet Count 250 135 - 317 04/28/2022 [facility] x10(9)/L 2:16 PM CDT Leukocytes 8.4 3.4 - 9.6 04/28/2022 [facility] x10(9)/L 2:16 PM CDT Neutrophils 5.80 1.56 - 04/28/2022 [facility] 6.45 2:16 PM CDT x10(9)/L Lymphocytes 1.89 0.95 - 04/28/2022 [facility] 3.07 2:16 PM CDT x10(9)/L Monocytes 0.49 0.26 - 04/28/2022 [facility] 0.81 2:16 PM CDT x10(9)/L Eosinophils 0.15 0.03 - 04/28/2022 [facility] 0.48 2:16 PM CDT x10(9)/L Basophils 0.06 0.01 - 04/28/2022 [facility] 0.08 2:16 PM CDT x10(9)/L Specimen Anatomical Collection Method Collection Time Receive d Time (Source) Location / / Volume Laterality Blood (Blood, 04/28/2022 1:58 PM 04/28/20 22 2:04 Venous) CDT PM CDT Juan Gutierrez D.O. LAB BLOOD ADD-ON Performing Organization Address City/State/ZIP Code Phon e Number [facility]- [address] [place] [address] [phone] [facility] [place] [address] System in [place] [address] [place] [address] ECG 12 Lead (04/28/2022 1:17 PM CDT) P athologist Signature Ventricular Rate 55 BPM MUSE ECG/Min AK Interval 120 ms MUSE QRSD Interval 98 ms MUSE QT Interval 392 ms MUSE QTC Interval 375 ms MUSE P [place] 69 degrees MUSE R [place] 67 degrees MUSE T Wave [place] 65 degrees MUSE Specimen Anatomical Collection Method Collection Time Receive d Time (Source) Location / / Volume Laterality 04/28/2022 1:17 PM 2 1:23 CDT PM CDT Impressions MUSE - 04/28/2022 1:23 PM CDT Sinus bradycardia Otherwise normal ECG When compared with ECG of 02-MAR-2019 09 :52, Vent. rate has decreased BY ??42 BPM Reviewed by JODEE Quevedo Narrative This result has an attachment that is no t available. Procedure Note Jose Spangler M.D. - 04/28/2022Forma tting of this note might be different from the original. IMPRESSION: Sinus bradycardia Otherwise normal ECG When compared with ECG of 02-MAR-2019 09 :52, Vent. rate has decreased BY 42 BPM Reviewed by JODEE Quevedo Juan Gutierrez D.OJaciel ECG ORDERABLES Performing Organization Address City/State/ZIP Code Phon e Number MUSE MUSE NA documented in this encounter Visit Diagnoses Diagnosis Pain Chest - Primary documented in this encounter Administered Medications Inactive Administered Medications - up to 3 most recent administrations Medication Order MAR Action Action Date Dose Rate Site ketorolac injection 15 mg (TORADOL) Given 04/28/2022 2:02 PM CDT 15 mg 15 mg, intravenous, Once, On Wed04/28/22 at 1346, For 1 dose, Adult IV push rate: Over 15 seconds. Peds IV push rate: Over 1 minute. 60 mg dose only for IM, not recommended for IV. lidocaine 5 % 1 patch Medication Applied 04/28/2022 2:02 PM CDT 1 pat ch Chest (LIDODERM) 1 patch, transdermal, Administer over 12 Hours, Once, On Wed04/28/22 at 1346, For 1 dose, Remove after 12 hours. sodium chloride 0.9 % injection 2-10 mL 2-10 mL, intravenous, As needed, line care, Starting o n Wed04/28/22 at 1344 documented in this encounter Active and Recently Administered Medications Times are shown in CDT. Scheduled Medication Order 04/26/2022 04/27/2022 04/28/2022 ketorolac injection 15 mg (TORADOL) (COMPLETED) 1402 (Given - Provider: See Laguna R.NJaciel) 15 mg, intravenous, Once, On Wed04/28/22 at 1346, For 1 dose, Adult IV push rate: Over 15 seconds. Peds IV push rate: Over 1 minute. 60 mg dose only for IM, not recommended for IV. lidocaine 5 % 1 patch (LIDODERM) 1402 (Medication Applied - Provider: See Laguna R.NJaciel)1640 (Due: Medication Removed - Provider: Discharge Provider, Automatic - Comment: Time automatically adjusted from order being discontinued) 1 patch, transdermal, Administer over 12 Hours, Once, On Wed04/28/22 at 1346, For 1 dose, Remove after 12 hours. PRN Medication Order 04/26/2022 04/27/2022 04/28/2022 sodium chloride 0.9 % injection 2-10 mL(Linked Group 1) 2-10 mL, intravenous, As needed, line care, Starting on 04/28 at 1344 Linked Groups Order Group 1: Place peripheral IV: No upper extremity site restrictions (COMPLETED) Upper extremity site restriction: No upp er extremity site restrictions
Quantity of PIVs requested: One
STAT, Once, On Wed04/28/22 at 1345, For 1 occurrence And sodium chloride 0.9 % injection 2-10 mLJump to med 2-10 mL, intravenous, As needed, line ca re, Starting on Wed04/28/22 at 1344 documented in this encounter Additional Health Concerns Assessment Noted Time PHQ-9 Depression Total Score: 15 06/06/2019 10:09 AM C DT documented as of this encounter Care Teams Flavor Tank Tender Relationship Specialty Start Date End Date Julian Santana M.D. PCP - General 05/13/17 [place] [phone] documented as of this encounter
--- OUTSIDE RECORDS SUMMARY | 2022-09-25 11:00 | XMS_ITS | Encounter Summary ---
:1990 Author Organization [facility] Address [address] [place] [address] Care Team Providers Name Role Phone Julian Santana M.D. Primary Care Provider Reason for Visit Reason Comments Dental Pain x2 months Encounter Details Date Type Department Care Team Description 09/26/2019 Office Visit Urgent Care in [facility] JuanaferozcamilaAlthea [place], [place] M, P.A.-C. (Primary Dx) [address] [place] [id number] Social History Tobacco Use Types Packs/Day [...] Sign Reading Time Taken Comments Blood Pressure 107/69 09/26/2019 1:46 PM CDT Pulse 78 09/26/2019 1:46 PM CDT Temperature 36.6 ??C (97.9 ??F) 09/26/2019 1:46 PM CDT Respiratory Rate - - Oxygen Saturation - - Inhaled Oxygen Concentration - - Weight 85.4 kg (188 lb 4.4 oz) 09/26/2019 1:46 PM CDT Height - - Body Mass Index 26.27 05/25/2019 11:57 AM CDT documented in this encounter Patient Instructions Patient InstructionsAlthea Pederson P.A.-C. - 09/26/2019 2:30 PM CDT Thank you for allowing me to participate in your care. Please take medication as prescribed. Return to the clinic/ER if symptoms worsen or fail to improve; or if they change in any manner. Please complete your health maintenance, or discuss this with your primary care provider and receiveyour annual exam if not done so already! documented in this encounter Progress Notes Althea Pederson P.A.-C. - 09/26/2019 2:30 PM CDT CHIEF COMPLAINT/REASON FOR VISIT Tooth pain for 2 months. HISTORY OF PRESENT ILLNESS The patient states that he has had a tooth of his right upper gum that has been bothering him for a couple of months, but he noticed, about 2 days ago, that he started having increased pain and swelling around this. He had a big bump on the area, on the inner gum on the roof of the mouth, that popped 2 days ago. Now, he has had swelling on the outside of this tooth, which opened up and started draining just before I went into the room. He notes that he has not had any fevers or chills. He does not have insurance to get in with a dentist yet. He will try to get in with the free clinic next week. OBJECTIVE PHYSICAL EXAMINATION Vital Signs: Noted in the chart. General: He is a pleasant 29-year-old male in no acute distress at rest. ENT: Tympanic membranes are clear. Nasal passages are a little swollen. He has a deviated septum. Hehas tenderness to palpation on the right maxillary that goes down to the right upper gumline. It is swollen and tender going down to there from the sinus. Left is clear. Oropharynx is within normal limits. On the gumline on the upper jaw, right side, he has an area that is red. It looks like it may have been where it opened up recently. Then, on the outer gum above the 3rd to the back tooth, there isan area that is swollen and red. It is actually having a little drainage, purulent drainage, coming out of it now. Heart: Regular rate and rhythm, without murmur. Lungs: Clear to auscultation bilaterally. ASSESSMENT / PLAN #1 Dental abscess PLAN: Put him on Augmentin 875 one by mouth twice a day for 10 days and give him a shot of Rocephin 1 g IM. Then, have him follow up with a dentist or with the free clinic to have that tooth looked at and possibly removed. The patient understands and agrees with the plan. documented in this encounter Plan of Treatment Not on filedocumented as of this encounter Visit Diagnoses Diagnosis Abscess Dental - Primary documented in this encounter Administered Medications Inactive Administered Medications - up to 3 most recent administrations Medication Order MAR Action Action Date Dose Rate Site cefTRIAXone 1 g in Given 09/26/2019 3:08 PM 1 g Right Dorsogluteal lidocaine 1% CDT 1 g, intramuscular, Once, On Tu09/26/19 at 1515, For 1 dose, FOR IM INJECTION ONLY DO NOT GIVE IF PATIENT HAS LIDOCAINE ALLERGY Reconstitute with 0.9 mL for a final concentration of 250 mg/mL. , Drug Monitoring Program: Pharmacist to adjust medication dosing based on indication and drug clearance factors. documented in this encounter Additional Health Concerns Assessment Noted Time PHQ-9 Depression Total Score: 15 06/06/2019 10:09 AM C DT documented as of this encounter Care Teams Booster Pump Operator Relationship Specialty Start Date End Date Julian Santana M.D. PCP - General 05/13/17 [address] [place] [phone] documented as of this encounter
--- OUTSIDE RECORDS SUMMARY | 2022-09-25 11:00 | XMS_ITS | Encounter Summary ---
:1990 Author Organization [facility] Address [address] [place] [address] Care Team Providers Name Role Phone Julian Santana M.D. Primary Care Provider Reason for Visit Reason Onset Date Comments Outpatient COVID-19 Testing 02/21/2021 Encounter Details Date Type Department Care Team Description 02/21/2021 External Outreach Department of Dana Pérez With And Family MedicineAlhaji APRN, C.N.P. (Suspected) Exposure [facility], [address] [facility], To COVI D-19 (Primary in [place], [place] [address] D[address]) [place], [place] [address] [facility] [place] [address] [place], [place] [phone] (Work) [phone] Social History Tobacco Use Types Packs/Day Years [...] PM CDT documented as of this encounter Progress Notes Dana Pérez APRN, C.N.P. - 02/21/2021 8:45 AM CDT Encounter created for COVID-19 screening. Encounter created for COVID-19 screening. documented in this encounter Plan of Treatment Not on filedocumented as of this encounter Procedures Procedure Name Priority Date/Time Associated Comments Diagnosis SARS CORONAVIRUS 2, Routine 09/18/2021 5:00 PM Re sults for this PCR CDT procedure are i n the results section. documented in this encounter Results SARS Coronavirus 2, PCR (09/18/2021 5:00 PM CDT) [facility] Method Time Signature SARS Undetected Undetected 09/18/2021 [place] Coronavirus 2, 6:08 PM CDT PCR Comment: SARS-CoV-2 RNA absent. This result does not rule out COVID-19 in the patient, as the sensitiv ity of the test depends on the timing of the specimen co llection and the quality of the specimen. Result should b e correlated with patient's history and clinical presentat ion. ----ADDITIONAL INFORMATION---- This RT-PCR test using the Xpert Xpress SARS-CoV-2 assay ([employer] performed on the [employer] DX systems has received Emergency Use Authorization (EU A) by the U.S. Food and Drug Administration. Performanc e characteristics were verified by [facility] inic in a manner consistent with CLIA requirements . Fact sheets for this Emergency Use Autho rization (EUA) assay can be found at the following link s: For Healthcare Providers: https://www.fda.gov/media/442666/downloa d For Patients: https://www.fda.gov/media/123883/downloa d SARS Coronavirus 2, Source Swab, Nasopharynx 09/18 5:04 PM CDT [place] Specimen Anatomical Collection Method Collection Time Receive d Time (Source) Location / / Volume Laterality Varies 09/18/2021 5:00 PM 5:04 CDT PM CDT Dana Pérez APRN, C.N.P. LAB MICROBIOLOGY - GENER AL ORDERABLES Performing Organization Address City/State/ZIP Code Phon e Number [facility] Nick Hernandez [place] [phone] [facility] Nick Hernandez [address] [place] [address] [facility] Nick Hernandez, [place] [address] Nick Hernandez & Thor [address] documented in this encounter Visit Diagnoses Diagnosis Contact With And (Suspected) Exposure To COVID-19 - Primary documented in this encounter Additional Health Concerns Infection Onset Date Last Indicated Resolved Time COVID19 Pending 02/11/2021 02/11/2021 03/03/2021 4:45 AM CDT Assessment Noted Time PHQ-9 Depression Total Score: 15 06/06/2019 10:09 AM C DT documented as of this encounter Care Teams Bufferer Relationship Specialty Start Date End Date Julian Santana M.D. PCP - General 05/13/17 [address] [place] [address] documented as of this encounter
--- OUTSIDE RECORDS SUMMARY | 2022-09-25 11:00 | XMS_ITS | Encounter Summary ---
:1990 Author Organization [facility] Address [address] [place] [address] Care Team Providers Name Role Phone Julian Santana M.D. Primary Care Provider Reason for Visit Reason Comments Dental Pain right upper dental pain Encounter Details Date Type Department Care Team Description 11/05/2019 Emergency [facility] Viet Aguirre Perico ronitis (Primary Department M.D. Dx) [address] [facility] [address] [place] [phone] Social History Tobacco Use Types Packs/Day [...] Sign Reading Time Taken Comments Blood Pressure 126/76 11/05/2019 9:43 PM RECOVERY ENGINEER Pulse 87 11/05/2019 9:43 PM RECOVERY ENGINEER Temperature 37.1 ??C (98.7 ??F) 11/05/2019 9:18 PM RECOVERY ENGINEER Respiratory Rate 16 11/05/2019 9:18 PM RECOVERY ENGINEER Oxygen Saturation 95% 11/05/2019 9:43 PM RECOVERY ENGINEER Inhaled Oxygen Concentration - - Weight 85.4 kg (188 lb 4.4 oz) 11/05/2019 9:19 PM RECOVERY ENGINEER Height - - Body Mass Index 26.27 05/25/2019 11:57 AM CDT documented in this encounter Discharge Instructions AttachmentsThe following attachments cannot be sent through Care Everywhere. Pericoronitis (Portuguese)documented in this encounter Medications at Time of Discharge Medication Sig Dispensed Refills Start Date End Date clindamycin (CLEOCIN) 300 Take 1 capsule (300 40 capsule 0 1 01/06/2019 11/15/2019 mg capsule mg total) by mouth 4 (four) times a day for 10 days. Given from [facility] omeprazole (PriLOSEC) 20 Take 1 capsule (20 30 capsule 11 01/14/[address] capsule mg total) by mouth every morning before breakfast. amoxicillin (AMOXIL) 875 Take 1 tablet (875 20 tablet 0 09/18/2021 mg tablet mg total) by mouth every 12 (twelve) hours. methylphenidate HCl Take 1 tablet (20 30 tablet 0 9 09/18/2021 (METADATE ER) 20 mg ER mg total) by mouth tabletIndications: daily. Attention Deficit With Hyperactivity Disorder methylphenidate HCl Take 1 tablet (20 30 tablet 0 9 09/18/2021 (METADATE ER) 20 mg ER mg total) by mouth tabletIndications: daily. Attention Deficit With Hyperactivity Disorder OXcarbazepine (TRILEPTAL) Take 1 tablet (150 60 tablet 11 09/18/2021 150 mg tabletIndications: mg total) by mouth Bipolar Disorder Current 2 (two) times a Episode Depressed Severe day. Without Psychotic Features (HCC) risperiDONE (RisperDAL) 3 Take 1 tablet (3 mg 90 tablet 1 0 05/03/2019 11/16/2019 mg tabletIndications: total) by mouth at Bipolar I Disorder (HCC) bedtime. documented as of this encounter ED Notes Viet Aguirre M.D. - 11/05/2019 9:43 PM CST Images from the original note were not included. SUBJECTIVE CHIEF COMPLAINT/REASON FOR VISIT Dental Pain (right upper dental pain) HISTORY OF PRESENT ILLNESS 29-year-old who presents with a chief complaint of pain in the right upper molar area. This is same area that has given him trouble for. Flares up, then improves with antibiotics. Has had issues getting in with a dentist due to lack of insurance. Has been using Tylenol and ibuprofen for pain. No difficulty swallowing. No breathing issues. No other URI symptoms. REVIEW OF SYSTEMS Constitutional: Negative. Negative for appetite change, fatigue and unexpected weight change. HENT: Positive for dental problem. Negative for congestion and ear pain. Eyes: Negative. Negative for discharge and visual disturbance. Respiratory: Negative. Negative for cough and shortness of breath. Cardiovascular: Negative. Negative for chest pain, palpitations and leg swelling. Gastrointestinal: Negative. Negative for abdominal pain, blood in stool, constipation, diarrhea, nausea and vomiting. Endocrine: Negative. Negative for cold intolerance, polydipsia and polyuria. Genitourinary: Negative. Negative for dysuria, flank pain, frequency, hematuria and urgency. Musculoskeletal: Negative. Negative for arthralgias, back pain, joint swelling, neck pain and neck stiffness. Skin: Negative. Negative for lesions and rash. Allergic/Immunologic: Negative. Negative for immunocompromised state. Neurological: Negative. Negative for dizziness, weakness, light-headedness, numbness and headaches. Hematological: Negative. Negative for adenopathy. Does not bruise/bleed easily. Psychiatric/Behavioral: Negative for confusion, depression and self-injury. The patient is not nervous/anxious. OBJECTIVE Initial Vitals [11/05/192117] Temperature Pulse Rate Heart Rate Resp Rate Blood Pressure SpO2 37.1 ??C 98 -- 16 125/74 96 % Pain Score 7 PHYSICAL EXAMINATION HENT: Head: Normocephalic and atraumatic. Mouth/Throat: Mucous membranes are moist. The most posterior tooth on the right upper side is only partially erupted with some gingival tissuecovering the medial edge. It is very tender to the touch with mild inflammation. There is no obviousabscess. Eyes: Conjunctivae and EOM are normal. Extraocular Movements: EOM normal. Neck: Normal range of motion. Cardiovascular: Normal rate. Pulmonary/Chest: Effort normal. Musculoskeletal: Normal range of motion. Neurological: He is alert and oriented to person, place, and time. Skin: Skin is dry and intact. No rash noted. Psychiatric: He has a normal mood and affect. ASSESSMENT/PLAN Final Diagnoses: as of Nov 06 641 Pericoronitis Clindamycin 300 q.i.d. times 10 days. Follow-up with dentist as soon as available. Viet Aguirre M.D. 11/06/19 0641 VERY ENGINEER documented in this encounter Plan of Treatment Not on filedocumented as of this encounter Visit Diagnoses Diagnosis Pericoronitis - Primary documented in this encounter Administered Medications Inactive Administered Medications - up to 3 most recent administrations Medication Order MAR Action Action Date Dose Rate Site clindamycin capsule 450 mg Given 11/05/2019 9:38 PM RECOVERY ENGINEER 450 mg (CLEOCIN) 450 mg, oral, Once, On 11/05/19 at 2133, For 1 dose, Indications: Head, neck, and ENT infection documented in this encounter Active and Recently Administered Medications Times are shown in RECOVERY ENGINEER. Scheduled Medication Order 11/03/2019 11/04/2019 11/05/2019 clindamycin capsule 450 mg (CLEOCIN) (COMPLETED) 2137 (Given - Provider: Yamel Dave R.N.) 450 mg, oral, Once, 11/05/19 at 2133, For 1 dose, Indications: Head, neck, and ENT infection documented in this encounter Additional Health Concerns Assessment Noted Time PHQ-9 Depression Total Score: 15 06/06/2019 10:09 AM C DT documented as of this encounter Care Teams Sample Case Porter Relationship Specialty Start Date End Date Julian Santana M.D. PCP - General 05/13/17 [address] [place] [phone] documented as of this encounter
--- OUTSIDE RECORDS SUMMARY | 2022-09-25 11:00 | XMS_ITS | Encounter Summary ---
:1990 Author Organization [facility] Address [address] [place] [address] Care Team Providers Name Role Phone Julian Santana M.D. Primary Care Provider Reason for Visit Reason Comments STD check Notified that he had sex wit h a partner who was infected a couple of weeks ago with Gonnorhea Vomiting Abdominal Pain Back Pain In the kidney area Encounter Details Date Type Department Care Team Description 05/23/2021 Office Visit Urgent Care in [facility] Bran Carter, [place], [place] P.A.-C. Transmitted Disease [address] (Primary Dx) [place] [phone] Social History Tobacco Use Types Packs/Day [...] Sign Reading Time Taken Comments Blood Pressure 107/66 05/23/2021 2:37 PM CDT Pulse 84 05/23/2021 2:37 PM CDT Temperature 36.4 ??C (97.5 ??F) 05/23/2021 2:37 PM CDT Respiratory Rate - - Oxygen Saturation 99% 05/23/2021 2:37 PM CDT Inhaled Oxygen Concentration - - Weight 81.7 kg (180 lb 1.9 oz) 05/23/2021 2:37 PM CDT Height - - Body Mass Index 25.13 05/25/2019 11:57 AM CDT documented in this encounter Patient Instructions Patient InstructionsBran Carter P.A.-C. - 05/23/2021 2:30 PM CDT You have been tested for 2 sexually transmitted infections; and the results are not available at thetime of your visit. You will be treated empirically (before results are known) now and will not need to return for treatment. You will be contacted by phone or portal to be notified of the results. Do not have sexual activity until we speak with you. Results typically take 2-4 days. documented in this encounter Progress Notes Bran Carter P.A.-C. - 05/23/2021 2:30 PM CDT SUBJECTIVE Patient ID: John Gavin is a 30 y.o. male. HISTORY OF PRESENT ILLNESS The patient presents to [facility] with history of dysuria and urethral discharge. He also reports not feeling well, flank pain and nausea/vomiting and low abdominal discomfort. He denies hematuria, urinary frequency, genital sores, rash and ulcers. He was sexually active with a partner who stated she tested positive for chlamydia and gonorrhea. Sex was unprotected. He refuses further STI testing beyond chlamydia and gonorrhea. REVIEW OF SYSTEMS See HPI Patient Active Problem List Diagnosis ??? Bipolar I Disorder (HCC) ??? Attention Deficit With Hyperactivity Disorder ??? Tic Disorder ??? Abuse Tobacco Smoking ??? Dependence Polysubstance (HCC) ??? Blood In Stool ??? Hemoptysis ??? Hematemesis CURRENT MEDICATIONS Current Outpatient Medications: ??? amoxicillin (AMOXIL) 875 mg tablet, Take 1 tablet (875 mg total) by mouth every 12 (twelve) hours. (Patient not taking: Reported on 09/26/2019 ), Disp: 20 tablet, Rfl: 0 ??? methylphenidate HCl (METADATE ER) 20 mg ER tablet, Take 1 tablet (20 mg total) by mouth daily., Disp: 30 tablet, Rfl: 0 ??? methylphenidate HCl (METADATE ER) 20 mg ER tablet, Take 1 tablet (20 mg total) by mouth daily., Disp: 30 tablet, Rfl: 0 ??? OXcarbazepine (TRILEPTAL) 150 mg tablet, Take 1 tablet (150 mg total) by mouth 2 (two) times a day., Disp: 60 tablet, Rfl: 11 ??? risperiDONE (RisperDAL) 3 mg tablet, TAKE 1 TABLET BY MOUTH ONCE DAILY AT BEDTIME (Patient not taking: Reported on 05/23/2021), Disp: 90 tablet, Rfl: 3 ALLERGIES/CONTRAINDICATIONS Allergies Allergen Reactions ??? Azithromycin Hives and Rash Hive as child OBJECTIVE VITAL SIGNS Vitals: 05/23/21 1437 BP: 107/66 BP Location: Left arm Patient Position: Sitting Cuff Size: Regular Pulse: 84 Temp: 36.4 ??C TempSrc: Temporal SpO2: 99% Weight: 81.7 kg PHYSICAL EXAMINATION General: Patient sitting in exam room in no apparent distress, with appropriate mood and affect. Cardiac: Regular rate Lungs: No acute respiratory distress : defer exam ASSESSMENT / PLAN #1 Dysuria - Urinalysis with Microscopic if Indicated - Chlamydia / Gonorrhoeae Amplified RNA Will test for chlamydia, gonorrhea and also get a UA. He refuses further STI testing today. He does need empiric treatment with known sexual partner with chlamydia and gonorrhea. Empiric treatment ??? You have been tested for 2 sexually transmitted infections; and the results are not available atthe time of your visit. ??? You will be treated empirically (before results are known) now and will not need to return for treatment. ??? You will be contacted by phone or portal to be notified of the results. ??? Do not have sexual activity until we speak with you. ??? Results typically take 2-4 days. documented in this encounter Plan of Treatment Not on filedocumented as of this encounter Procedures Procedure Name Priority Date/Time Associated Diagnosis Comme nts URINALYSIS WITH STAT 05/23/2021 2:48 PM Exposure Sexually R esults for this MICROSCOPIC IF CDT Transmitted Disease proced ure are in INDICATED, U the results section. HC URINALYSIS AUTO STAT 05/23/2021 2:48 PM Res ults for this WO MICRO CDT procedure are i n the results section. CHLAMYDIA/GONORRHOEA STAT 05/23/2021 2:48 PM Exposure Sexua lly Results for this E AMPLIFIED RNA CDT Transmitted Disease proce dure are in the results section. documented in this encounter Results (ABNORMAL) Microscopic Automated (05/23/2021 2:48 PM CDT) athologist Signature White Blood Occ-3 /hpf 05/23/2021 [facility] Cells 3:23 PM CDT Comment: ----REFERENCE VALUE---- Males: 0-3 Females: 0-10 Unknown: 0-10 Red Blood Cells Occ-2 0 - 2 /hpf 05/23/2021 3:23 PM CDT [facility] Hyaline Casts 1-3 /lpf 05/23/2021 3:23 PM CDT RDW G Squamous Cells Occ-3 /hpf 05/23/2021 3:[address] [facility]G Sperm Present (A) None Seen 05/23/2021 3:23 PM CDT [facility] Comment: Sperm Present. ??Seminal fluid may be a source of elevated protein Specimen Anatomical Collection Method Collection Time Receive d Time (Source) Location / / Volume Laterality Urine 05/23/2021 2:48 PM 2:56 CDT PM CDT Addison Sidhu P.A.-C. LAB URINE ORDERABLES Performing Organization Address City/State/ZIP Code Phon e Number [facility]- [address] [place], [place] [address] [place] [address] System in [place] [address] Chlamydia / Gonorrhoeae Amplified RNA (05/23/2021 2:48 PM CDT) [facility] gist Method Time Signature Source Urine, 05/26/2021 [facility] Urine, First 11:57 AM CDT Voided Chlamydia Negative Negative 05/26/2021 [facility] trachomatis 11:57 AM CDT amplified RNA Source Urine, 05/26/2021 [facility] Urine, First 11:57 AM CDT Voided Neisseria Negative Negative 05/26/2021 [facility] gonorrhoeae 11:57 AM CDT amplified RNA Specimen Anatomical Collection Method Collection Time Receive d Time (Source) Location / / Volume Laterality Varies (Urine, 05/23/2021 2:48 PM 021 9:31 First Voided) CDT PM CDT Addison Sidhu P.A.-C. LAB MICROBIOLOGY - GENERAL O RDERABLES Performing Organization Address City/State/ZIP Code Phon e Number [facility]- [address] [place] [address] [phone] [facility] [place] [address] System [address] (ABNORMAL) Urinalysis with Microscopic if Indicated (05/23/2021 2:48 PM CDT) P athologist Signature Source Urine, 05/23/2021 [facility] Urine, Clean 3:05 PM CDT Catch Clarity Cloudy (A) Clear 05/23/2021 [facility] 3:05 PM CDT Color Yellow 05/23/2021 [facility] 3:05 PM CDT Comment: ----REFERENCE VALUE---- Colorless Yellow [place] Blood Negative Negative 05/23/2021 3:05 PM CDT R[facility] Nitrite Negative Negative 05/23/2021 3:05 PM CDT [facility] Leukocyte Esterase Negative Negative 05/23/2021 3:05 PM CD T [facility] Protein Trace mg/dL 05/23/2021 3:05 PM CDT [facility] Comment: ----REFERENCE VALUE---- Negative Trace Glucose Negative Negative mg/dL 05/23/2021 3:[address] WG Ketone Negative Negative mg/dL 05/23/2021 3:[address] WG Bilirubin Negative Negative 05/23/2021 3:05 PM CDT [facility] pH 6.5 5.0 - 8.0 05/23/2021 3:05 PM CDT [facility] Specific [place] 1.025 1.001 - 1.035 05/23/2021 3:05 PM CDT [facility] Urobilinogen 1.0 0.2 - 1.0 mg/dL 05/23/2021 3:05 PM CD T [facility] Specimen Anatomical Collection Method Collection Time Receive d Time (Source) Location / / Volume Laterality Urine (Urine, 05/23/2021 2:48 PM 05/23/20 2:56 Clean Catch) CDT PM CDT Addison Sidhu P.A.-C. LAB URINE ORDERABLES Performing Organization Address City/State/ZIP Code Phon e Number [facility]- [address] [place], [place] [address] [address] [place] [address] System in [place] [address] [address] documented in this encounter Visit Diagnoses Diagnosis Exposure Sexually Transmitted Disease - Primary documented in this encounter Administered Medications Inactive Administered Medications - up to 3 most recent administrations Medication Order MAR Action Action Date Dose Rate Site cefTRIAXone 500 mg in Given 05/23/2021 3:47 500 mg Left Ventrogluteal lidocaine 1% PM CDT 500 mg, intramuscular, Once, On Wed05/23/21 at 1545, For 1 dose, FOR IM INJECTION ONLY DO NOT GIVE IF PATIENT HAS LIDOCAINE ALLERGY Reconstitute with lidocaine 1% to a concentration of 350 mg/mL: 500 mg vial: add 1 mL 1 g vial: add 2.1 mL 2 g vial: add 4.2 mL Lidocaine volume is the reconstitution volume - draw up appropriate dose Record configured for RN compounding, check math before compounding , Drug Monitoring Program: Pharmacist to adjust medication dosing based on indication and drug clearance factors. documented in this encounter Additional Health Concerns Assessment Noted Time PHQ-9 Depression Total Score: 15 06/06/2019 10:09 AM C DT documented as of this encounter Care Teams Batching Operator Relationship Specialty Start Date End Date Julian Santana M.D. PCP - General 05/13/17 [address] [place] [address] documented as of this encounter
--- OUTSIDE RECORDS SUMMARY | 2022-09-25 11:00 | XMS_ITS | Encounter Summary ---
:1990 Author Organization [facility] Address [address] [place] [address] Care Team Providers Name Role Phone Julian Santana M.D. Primary Care Provider Reason for Visit Reason Onset Date Comments Testing For Upper Respiratory Virus Symptoms 02/11/2021 Encounter Details Date Type Department Care Team Description 02/11/2021 External Outreach Department of [facility] Simran Olson ntact With And MedicineJulian, (Suspected) Exp osure Professional and P.A.-C. To COVID-19 ([facility] in [address] [place] [address] lvd Dx) [place], [place] [address] [address] [place], [place] [phone] (Work) [phone] Social History Tobacco Use Types Packs/Day Years [...] documented as of this encounter Progress Notes Shelby Aguirre R.N. - 02/11/2021 2:00 PM CDT Encounter created for symptomatic infectious disease screening with possible COVID, Influenza, RSV, and/or Group A Strep testing. documented in this encounter Plan of Treatment Not on filedocumented as of this encounter Visit Diagnoses Diagnosis Contact With And (Suspected) Exposure To COVID-19 - Primary documented in this encounter Additional Health Concerns Infection Onset Date Last Indicated Resolved Time COVID19 Pending 02/11/2021 02/11/2021 03/03/2021 4:45 AM CDT Assessment Noted Time PHQ-9 Depression Total Score: 15 06/06/2019 10:09 AM C DT documented as of this encounter Care Teams Guest Relations Officer Relationship Specialty Start Date End Date Julian Santana M.D. PCP - General 05/13/17 [address] [place] [address] documented as of this encounter
--- OUTSIDE RECORDS SUMMARY | 2022-09-25 11:00 | XMS_ITS | Encounter Summary ---
:1990 Author Organization [facility] Address [address] [place] [address] Care Team Providers Name Role Phone Julian Santana M.D. Primary Care Provider Reason for Visit Reason Comments Med Refill Encounter Details Date Type Department Care Team Description 11/15/2019 Refill Department of Family Medicine, Julian Erazo M.D. Med Refill [facility], in [place], [address] [place] [address] [place] [address] [place] [address] [phone] Social History Tobacco Use Types Packs/Day Years [...] documented as of this encounter Care Teams It Programmer Analyst Relationship Specialty Start Date End Date Julian Santana M.D. PCP - General 05/13/[address] [place] [phone] documented as of this encounter
--- OUTSIDE RECORDS SUMMARY | 2022-09-25 11:00 | XMS_ITS | Encounter Summary ---
:1990 Author Organization [facility] Address [address] [place] [address] Care Team Providers Name Role Phone Julian Santana M.D. Primary Care Provider Reason for Visit Reason Comments Painful Urination Exposure to STD Appointment Request (Routine) - Closed Specialty Diagnoses / Procedures Referred By Contact Refer red To Contact Express or Urgent Care Referral ID Status Reason Start Date Expiration Date Visits Requ ested Visits Authorized [id number] Closed 10/21/2020 10/21/2021 1 1 Encounter Details Date Type Department Care Team Description 10/22/2020 Virtual Visit [facility] Shannon Mayo, Gwen rivas (Primary Dx); Care at [facility] JOSE DAVID, C.N.PJaciel, Pain Urethra [address] LEDEZMA M.S.N. [place], [place] [address] [facility] [id number] [place], [place] [phone] Social History Tobacco Use Types Packs/Day Years [...] documented as of this encounter Progress Notes Shannon Mayo, JOSE DAVID C.N.PJaciel, M.S.N. - 10/22/2020 1:00 PM CST SUBJECTIVE CHIEF COMPLAINT / PURPOSE OF VISIT Patient presents for Painful Urination and Exposure to STD. Consult conducted via real-time audio/video technology by Shannon Mayo APRN, C.N.P., M.S.N. in [facility] with [facility] to the patient in his home in [facility]. Patient states he was unable to provide address of his new home. HISTORY OF PRESENT ILLNESS Phone visit arranged today to discuss penile drainage, painful urination. This visit was arranged inthe midst of the COVID-19 pandemic. Patient had complains of penile pain for the last 1 and half weeks. He notes that he has had some green discharge and a rios when he urinates. He states a female hehad been sexually intimate with has an STI. Patient wants treatment for gonorrhea. He denies fever, nausea, vomiting, or diarrhea. He states he has had some generalized abdominal pain. He had a recent negative COVID-19 test. He was tested because of the symptoms of slight cough and sinus congestion. He is frustrated with trying to make an appointment or receiving treatment for gonorrhea. 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 REVIEW OF SYSTEMS Neuro: Negative Respiratory: Negative Cardiac: Negative GI: Negative : As listed above Skin: Negative MS: Negative ENT: Negative OBJECTIVE PHYSICAL EXAMINATION VITALS: There were no vitals taken for this visit. GENERAL: The patient is alert and oriented x 3. He is interactive and answers questions, speaks in full sentences and is not short of breath. He is in no acute distress but is somewhat agitated on the phone frequently swearing and angry/frustrated. LAB WORK Most recent laboratory studies reviewed per chart. No results found for this or any previous visit (from the past 72 hour(s)). ASSESSMENT / PLAN We reviewed problems below. Chronic problems were not updated in the problem list, including overview and assessment/plan. #1 Pain Urethra #2 Dysuria Other orders - [facility] Visit; Future; Expected date: 10/22/2020 After discussing symptoms with patient on the telephone with his anger escalating, I opted to call him back after reviewing his chart a little more in depth. I have entered orders for him to have follow-up at the [facility] where he should most likely be tested for STIs. His treatment for gonorrhea (if he truly does have this infection) would include an IM injection and may be complicated in the fact that he has an azithromycin allergy. I attempted to return his phone call so we can complete our conversation on what options were available for him but he has not answered the phone call. I will attempt another phone call later this afternoon to discuss these options with him. If symptoms are persistent in spite of treatment options, symptoms are worsening, or if new symptomsdevelop patient should follow-up with primary care provider. If the patient develops shortness of breath, difficulty breathing, or any type of respiratory distress they should seek immediate health evaluation. I personally spent a total of 10 minutes in aah-ixge-kx-face time performing a review of the record and/or discussion with the patient as described above. Ready to learn, no apparent learning barriers were identified; learning preferences include listening. Explained diagnosis and treatment plan; patient expressed understanding of the content. 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 PCP - General 05/13/17 [address] [place] [phone] documented as of this encounter
--- OUTSIDE RECORDS SUMMARY | 2022-09-25 11:00 | XMS_ITS | Encounter Summary ---
:1990 Author Organization [facility] Address [address] [place] [address] Care Team Providers Name Role Phone Julian Santana M.D. Primary Care Provider Encounter Details Date Type Department Care Team Description 10/21/2020 Virtual Visit [facility] Mariely Gama I [facility] C.N.PJaciel Respiratory (Primary [address]) [place] [address] [phone] Social History Tobacco Use Types Packs/Day Years [...] as of this encounter Progress Notes Mariely Gama APRN, C.N.P. - 10/21/2020 3:20 PM CST Unable to reach pt. By phone using both the number listed in the chart and the number in the notes section from media law faculty member. Three attempts made. [employer] documented in this encounter Plan of Treatment Not on filedocumented as of this encounter Visit Diagnoses Diagnosis Infection Upper Respiratory - Primary documented in this encounter Additional Health Concerns Assessment Noted Time PHQ-9 Depression Total Score: 15 06/06/2019 10:09 AM C DT documented as of this encounter Care Teams Cable Reeler Relationship Specialty Start Date End Date Julian Santana M.D. PCP - General 05/13/17 [address] [place] [id number] documented as of this encounter
--- OUTSIDE RECORDS SUMMARY | 2022-09-25 11:00 | XMS_ITS | Encounter Summary ---
:1990 Author Organization [facility] Address [address] [place] [address] Care Team Providers Name Role Phone Julian Santana M.D. Primary Care Provider Reason for Visit Reason Comments COVID Inquiry Encounter Details Date Type Department Care Team Description 10/16/2020 Clinical Communication Central Appointment [facility] Office in [facility] [address] [place] [address] Social History Tobacco Use Types Packs/Day Years [...] PM CDT documented as of this encounter Miscellaneous Notes Telephone Encounter - Aurelia Ryan - 10/16/2020 9:01 AM CST COVID DOS/PASS Screening What is the patient requesting?: COVID-19 Testing Only (End screening - follow local process) Plan: Endpoint recommendation: Testing indicated, sent patient to [place] [address]: [address], [place] [facility]. Patient must call for appointment time [phone] prior to coming to the testing site (appt line hours are daily 7:30 am to 7pm). Testing hours are daily 9 am to 7 pm. Remain in vehicle, check-in by phone using same number upon [facility]. and Please avoid using public transportation per CDC recommendation. If you do not have personal transportation please self-quarantine until a personal transportation option is available. *Reminder if sending patient for testing in [facility] or [facility], an email notification is required. [employer]OR SUPPLY [employer]AIN documented in this encounter Plan of Treatment Not on filedocumented as of this encounter Visit Diagnoses Not on filedocumented in this encounter Additional Health Concerns Assessment Noted Time PHQ-9 Depression Total Score: 15 06/06/2019 10:09 AM C DT documented as of this encounter Care Teams Detective Supervisor Relationship Specialty Start Date End Date Julian Santana M.D. PCP - General 05/13/17 [address] [place] [address] documented as of this encounter
--- OUTSIDE RECORDS SUMMARY | 2022-09-25 11:00 | XMS_ITS | Encounter Summary ---
:1990 Author Organization [facility] Address [address] [place] [address] Care Team Providers Name Role Phone Julian Santana M.D. Primary Care Provider Encounter Details Date Type Department Care Team Description 10/18/2020 Admin Visit Department of Family Medicine, 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 PCP - General 05/13/17 [address] [place] [phone] documented as of this encounter
--- OUTSIDE RECORDS SUMMARY | 2022-09-25 11:00 | XMS_ITS | Encounter Summary ---
:1990 Author Organization [facility] Address [address] [place] [address] Care Team Providers Name Role Phone Julian Santana M.D. Primary Care Provider Reason for Visit Reason Comments Psychiatric Evaluation Pt states he was in [facility] voluntary for chemical dependancy since yesterday. Pt reports that when he was asked about SI he said he thinks a bout it but it was last week. staff told pt he had to come to the ED and pt became upset and staff called for security an d police to assist with getting the patient to the ED. Narciso nt calmed down in the ED after he was allowed to call his [facility] er. Encounter Details Date Type Department Care Team Description 09/19/2021 Emergency [facility] Ruperto Tapia, [facility], M.SJaciel (Primary Dx) [address] [facility] [address] [place] [id number] [phone] Social History Tobacco Use Types Packs/Day Years [...] Sign Reading Time Taken Comments Blood Pressure 110/84 09/19/2021 4:15 PM CDT Pulse 90 09/19/2021 4:15 PM CDT Temperature 36.4 ??C (97.5 ??F) 09/19/2021 4:15 PM CDT Respiratory Rate 18 09/19/2021 4:15 PM CDT Oxygen Saturation 100% 09/19/2021 4:15 PM CDT Inhaled Oxygen Concentration - - Weight - - Height - - Body Mass Index - - documented in this encounter Discharge Instructions Discharge InstructionsRuperto Tapia P.A.-C., M.S. - 09/19/2021 6:39 PM CDT Return to the emergency department if you develop worsening of your symptoms including having thoughts of wanting to hurt yourself or others. Patient InstructionsSara Chino L.I.C.S.W. - 09/19/2021 5:12 PM CDT National Suicide Prevention Lifeline 514-241-FPAP (7516) connects you with a crisis center in the Lifeline network closest to your location. Your call will be answered by a trained tree and shrub worker who will listen empathetically and without judgment. The crisisworker will work to ensure that you feel safe and help identify options and information about mentalhealth services in your area. Your call is confidential and free. [facility] Mobile Crisis Team/24 Hour Crisis Line (Serves Jordi Kramer [place], [place], [place], [place], [place] and [facility]) [phone] * Available for 21/06 mental health crisis supports and resources. [facility] Crisis Center (Serves Jordi Kramer [place], [place], [place], [place], [place], [place] and [facility]) [phone] * Available for crisis residence stabilization and mobile crisis supports. Crisis Response for [facility] (Serves Camron Archer [place], [place], [place], [place], [place], [place], [place], and [facility] [phone] or [phone] * Available for 21/06 mental health crisis supports and resources. Crisis Center [place] for the [facility] Crisis Center to open on June 25, 2021 [place], [place] and [facility] Crisis Center (crisisresponsesFubles.Genesis Operating System) [place] Mental [facility] Warmline Open Wednesday-Wednesday 12PM to 10PM [phone] or [phone] or Text ???support?? to [phone] *Calls are answered by a Activity Leader who have first-hand experience living with a mental health condition Mental Health Helpline at or online at www.mentalhealthmn.org The [facility] HelpLine can be reached Wednesday through Wednesday, 10 am-6 pm, ET. [phone] ([phone]) or [email or web address] HelpLine staff and volunteers are prepared to answer your questions about mental health issues including: ??? Symptoms of mental health conditions ??? Treatment options ??? Local support groups and services ??? Education programs ??? Helping family members get treatment ??? Programs to help find jobs ??? Legal issues (the [facility] Legal Resource Service can connect individuals with attorneys in their area but does not have the resources to provide individual representation) Note: We are unable to provide counseling or therapy, cannot provide specific recommendations for things like treatment or do individual casework, legal representations or other individual advocacy. Inthe event of a crisis call, we will transfer callers in crisis or who express suicidal ideation to [facility] crisis line to provide further assistance. Crisis Text Line Text ELAYNE to [phone] [facility] Helpline 21/06 Confidential Line Call Text [facility] [email or web address] to [phone] Email: [email or web address]. National Drug Abuse Helpline [place] [employer] Variety of services via telehealth: Opioid Use Disorder; Substance Abuse Treatment; Eating Disorder Treatment; Chronic Pain https://www.The Doctor Gadget Company.Genesis Operating System/ Doctor on Demand Members can connect with Doctor on Demand doctors and psychologists from their phone, tablet, or computer on demand or by appointment 21/06, 365 days a year. Through live video, doctors review symptoms, medications, perform an exam and may recommend treatment - including prescriptions and lab work. https://www.SMASHsolar/ *Credit card no longer necessary to access the system. Learn To Live Online, on demand, self-paced, Cognitive Behavior Therapy from any device. Members experiencing mild to moderate issues can complete an assessment or begin support services. Online clinical assessments, programs and resources for Stress, Anxiety & Worry, Depression, Insomnia, Social Anxiety & Substance Use. Effective tools to help you understand how your mind works and change your behavior patterns. 21/06. Self-paced, private & confidential. Ability to start, stop, save, and restart your progress. No cost to eligible Blue Plus members (ages 13-64). As effective as in-person therapy. Coaching available (phone, email, text) https://Alibaba/epicurio Peer Support Connection Warmline - Warmlines deliver help before a mental health crisis heats up. The [facility] Warmline provides early intervention with emotional support that can prevent a crisis, a 911 call, or ER visit. Operating from 5:00 PM to 9:00 AM, seven days a week, 365 days per year, Certified Peer Support Specialists and Recovery Coaches provide confidential and anonymous 1:1 text or telephonepeer support for individuals who are NOT in a crisis but still need someone to talk to. They may be lonely, working through a struggle, have questions about mental illness, need help problem-solving, or just want to chat. Individuals can call or text the [facility] Warmline at . AttachmentsThe following attachments cannot be sent through Care Everywhere. Suicidal Feelings: How to Help Yourself (Yakut)documented in this encounter Medications at Time of Discharge Medication Sig Dispensed Refills Start Date End Date nicotine (NICODERM CQ) 14 Place 1 patch on the 30 patch 1 09/19/2021 06/16/2022 mg/24 hr patch skin daily. documented as of this encounter Consult Notes Sara Chino L.I.C.S.W. - 09/19/2021 6:17 PM CDT Psychotherapy in Crisis/Psychosocial Assessment SUBJECTIVE DEMOGRAPHIC INFORMATION Referral Source: Provider/Service Referral Name: Ruperto Tapia P.A.-C Referral Reason: Suicidal Person(s) present during interview: Patient Primary care clinic and provider: None noted / Julian Santana M.D. Primary Language: Yakut Wool Puller Services Used: No Legal Information: Legal Decision Maker: Guardian Advance Directives: N/A Advance Directives Status: N/A Citizenship: Citizenship: [place] Citizen REASON FOR CONSULT Suicidal Patient is a 31 y.o. male who presented to the [facility] (ED[place] via [place] due to concerns of suicidal ideation while in [facility] earlier today. Patient was accompanied by no one. Social work was consulted to complete a crisisassessment and provide therapeutic interventions. It was reported patient had gave a positive answerto suicidal ideation questions during a [facility] assessment today. He did not provide detailsabout thoughts. Patient unwilling to safety plan so sent to emergency department for assessment. The patient reported he had been in residential substance treatment in [facility]. He stated I've used almost anything I could find and that's why he needs treatment. Patient endorsed a historyof mental health diagnoses, but denied any current luis miguel or depression. Patient reported his issues are with drugs. He endorsed I said yes when they asked if I was suicidal, but I thought they were asking if I had been. I didn't think they were asking about now. Patient reported he had been suicidal in the past and he's had a plan with intent in the past as well. He denied any current suicidal ideation. Patient repeated that he had been confused and when he tried to explain that to the staff he had flipped out. Patient reported he had repeatedly just asked to leave the treatment center because I was just done with doing treatment there. The patient???s mother and guardian, Dayanara, provided collateral information and reported concernsof patient struggling with substance use. She stated the patient had told her her had said yes to the questions about suicidal ideation because he thought they were asking about if he had felt thatway not if he currently does. She stated the patient is not presenting like he normally does when he is experiencing suicidal ideation, so his mother felt the patient was being honest about not beingsuicidal currently. Disclaimer: The patient was advised regarding the various topics to be interviewed during this evaluation. Patient consented to proceed. The information provided in the assessment is based on review ofthe medical record as well as the face to face interview with the patient. The patient was advised that the content of this interview will be shared with the health care team. It was discussed with thepatient that staff are mandated reporters and they reported understanding. Past Medical History: Diagnosis Date ??? Anxiety Generalized Disorder ??? Attention Deficit Hyperactive Disorder ??? Bipolar Disorder (HCC) ??? Depressive Disorder ??? Hemorrhage Gastrointestinal Past Surgical History: Procedure Laterality Date ??? ADENOIDECTOMY ??? COLONOSCOPY N/A 03/14/2019 Procedure: COLONOSCOPY; Surgeon: Regan Juan M.D.; Location: [facility] ??? COLONOSCOPY N/A 05/10/2019 Procedure: COLONOSCOPY; Surgeon: Regan Juan M.D.; Location: [facility] ??? ESOPHAGOGASTRODUODENOSCOPY N/A 03/14/2019 Procedure: ESOPHAGOGASTRODUODENOSCOPY; Surgeon: Regan Juan M.D.; Location: [facility] ??? ESOPHAGOGASTRODUODENOSCOPY N/A 05/10/2019 Procedure: ESOPHAGOGASTRODUODENOSCOPY; Surgeon: Regan Juan M.D.; Location: [facility] ??? ESOPHAGOGASTRODUODENOSCOPY N/A 05/10/2019 Procedure: ESOPHAGOGASTRODUODENOSCOPY; Surgeon: Regan Juan M.D.; Location: [facility] ??? TONSILLECTOMY SOCIAL HISTORY Early growth and development: The patient met social and developmental milestones as expected. Family of Origin: Patient did not provide details about family of origin. Marital Status / Family / Household Status: single The patient has been staying with people before he went to residential treatment. Support Systems: Parent,Family members,Friends/neighbors. We have not received permission to contactthe. 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 Past: History of trauma ENVIRONMENTAL SUPPORTS Current Living Situation: Other (Comment) Patient's Home Environment: Other (comment) Staying with friends Care Facility Name (if applicable): Anticipated modifications to the patient's home environment: None FUNCTIONAL STATUS (ADL's and IADL's) Functional Status: Independent Level of Assistance: Independent Dressing: Independent Feeding: Independent Bathing: Independent Grooming: Independent Toileting: Independent Transfer to/from Bed, Chair, Etc.: Independent Mobility: Independent Meal Prep: Independent Medication Setup/Administration: Independent Telephone Use: Independent Housekeeping: Independent Shopping: Independent Managing Finances: Independent Behavior: Oriented Communication: Talks,Understands speaking,Understands Yakut It is anticipated that the patient will need assistance with None. ASSISTIVE DEVICES Patient has the following equipment: None Patient anticipates potentially needing the following additional equipment: None Transportation needs: Support from family SERVICES REQUESTED Home Health: (None) Level of Care: (None) TIGHT COOPER Formal and Informal Resources: Crisis resources Caregiver Name: Dayanara Foster Caregiver Relationship: Mother/Guardian FINANCES/INSURANCE Primary insurance: MEDICARE A AND B Secondary insurance: [employer] Income Information Does the Patient have any Financial Concerns?: (Unknown) Income Source: Unknown Income/Expense Information: (Unknown) ADVANCE DIRECTIVES The patient does not currently have an advance directive on file. DISCHARGE PLANNING Barriers To Discharge: None Strengths: Ability to acquire knowledge,Premorbid level of function,Support of immediate family,Attitude of family Type of Residence: Other (Comment) Type of Residence Other: Staying with friends Support Systems: Parent,Family members,Friends/neighbors Assistance Recommended after Discharge: None Home Care Services: No Anticipated Discharge Destination: Home or Self Care Recommended Discharge Services: Primary Care Physician Follow- up,Psychologist,Other (comment) Recommended Discharge Services Other: Residential Substance Treatment Does the patient need discharge transport arranged?: No OBJECTIVE MENTAL HEALTH MENTAL HEALTH HISTORY: The patient reported historical diagnoses of bipolar disorder. Per review of the patient's electronic medical record the patient has historical diagnoses of dependence drug amphetamine, dependence polysubstance, bipolar I disorder, abuse tobacco smoking, attention deficit with hyperactivity. The patient reported no previous psychiatric hospitalizations. The patient is not currently engaged in any mental health treatment services. The patient is not currently prescribed any psychiatric medication. Patient was engaged in residential substance treatment until today. Additional Mental Health Treatment History will be explained below. Current Psychological Symptoms: Patient Appearance: Tense Behaviors Observed: Irritable Patient Level of Consciousness: Alert and oriented Status of Patient's Memory: Intact Patient Cooperation: Cooperative Patient Mood: Overwhelmed Patient Affect: Mood-congruent Quality of Patient's Speech: Within normal limits for volume, rate and tone Descriptor of Thought Content: No abnormality Thought Process Descriptor: Intact Sleep: Variable Appetite: Variable Weight Status: Stable Pain Status: No Pain Nutrition Status: Adequate Nutrition Anhedonia: Denies Energy Status: Fluctuant Concentration: Fluctuant Perception: The patient denies perceptual disturbance,Does not appear to respond to internal stimuli Anxiety Symptoms: Other (comment): Anxiety Symptoms Other: Patient did not endorse current anxiety symptoms Depressive Symptoms: No symptoms of depressions Level of Judgement: Intact Suicide Risk and Safety Risk Assessment: 09/19/21 2354 Suicidal Ideation 1. Wish to be (Lifetime) Yes Wish to be Description (Lifetime) Patient reported a history of passive wish. 1. Wish to be (Past Month) No 2. Non-Specific Active Suicidal Thoughts (Lifetime) Yes Non-Specific Active Suicidal Thought Description (Lifetime) Patient reported a history of suicidal ideation. 2. Non-Specific Active Suicidal Thoughts (Past Month) Yes Non-Specific Active Suicidal Thought Description (Past Month) Patient reported suicidal ideation. Hestated he last felt that way a week ago. 3. Active Suicidal Ideation with any Methods (Not Plan) Without Intent to Act (Lifetime) Yes Active Suicidal Ideation with any Methods (Not Plan) Description (Lifetime) Patient reported historyof method consideration, specifically overdose. 3. Active Sucidal Ideation with any Methods (Not Plan) Without Intent to Act (Past Month) No 4. Active Suicidal Ideation with Some Intent to Act, Without Specific Plan (Lifetime) Yes Active Suicidal Ideation with Some Intent to Act, Without Specific Plan Description (Lifetime) Patient reported history of intent to act, but without a specific plan. 4. Active Suicidal Ideation with Some Intent to Act, Without Specific Plan (Past Month) No 5. Active Suicidal Ideation with Specific Plan and Intent (Lifetime) Yes Active Suicidal Ideation with Specific Plan and Intent Description (Lifetime) Patient reported having a plan with intent in the past. Patient reported having a plan about a year ago. 5. Active Suicidal Ideation with Specific Plan and Intent (Past Month) No (Patient reported earlier today at [facility] I thought they had asked me if I had been suicidal. I thought they meant in the past. I didn't realize they were asking about now. When I tried to tell them that they weren't listening.) Intensity of Ideation Most Severe Ideation Rating (Lifetime) 5 Most Severe Ideation Description (Lifetime) Patient reported having plan with intent in the past. Frequency (Lifetime) 1 Duration (Lifetime) 1 Controllability (Lifetime) 4 Deterrents (Lifetime) 2 Reasons for Ideation (Lifetime) 5 Intensity of Ideation Most Severe Ideation Rating (Past Month) 2 Most Severe Ideation Description (Past Month) Patient reported non-specific suicidal ideation withinthe last month, but stated the last time this occurred was about a week ago. Patient reported I thought they were asking me if a had been suicidal. I didn't realize they were asking me about now when I answered yes. Frequency (Past Month) 2 Duration (Past Month) 2 Controllability (Past Month) 2 Deterrents (Past Month) 1 Reasons for Ideation (Past Month) 5 Suicidal Behavior Actual Attempt (Lifetime) No Actual Attempt (Past 3 Months) No Has subject engaged in non-suicidal self-injurious behavior? (Lifetime) No Has subject engaged in non-suicidal self-injurious behavior? (Past 3 Months) No Interrupted Attempts (Lifetime) No Interrupted Attempts (Past 3 Months) No Aborted or Self-Interrupted Attempt (Lifetime) No Aborted or Self-Interrupted Attempt (Past 3 Months) No Preparatory Acts or Behavior (Lifetime) No Preparatory Acts or Behavior (Past 3 Months) No Safety Assessment Patient denied passive and active suicidal and homicidal ideation. Lifetime/Recent: The [place] Suicide Severity Rating Scale (C-SSRS) Lifetime/Recent screening assessment was completed with the patient on 09/19/21. Within the patient's lifetime, the patient scored a5 related to suicidal ideation suggesting moderate risk. Further assessment of the patient's intensity of suicidal ideation was assessed over the patient's lifetime. The patient scored 13 out of 25; 25meaning the intensity of ideation was high. Within the past one month, the patient scored a 2 related to suicidal ideation suggesting low risk. Further assessment of the patient's intensity of suicidalideation was assessed over the past one month. The patient scored 12 out of 25; 25 meaning the intensity of ideation was high. Suicide risk factors include: , 31 y.o., male, recent suicidal ideation, substance abuse, acute life stressors, environmental change, patient has a history of impulsive behavior such as terminating services and refusing support when frustrated, mood disorder diagnosis and history of abuse/negl ect/trauma. Homicidal risk factors include: male, illicit drug use and alcohol abuse. Protective factors: patient reported no current suicidal thoughts, plan or intent, no current abuse of alcohol , no current use of illicit drugs, patient has supportive family, patient has supportive friends and patient identified the following reasons to live: friends and family. Based on the risk and protective factors described above and clinical interpretation of the ColumbiaSuicide Severity Rating Scale (C-SSRS), the patient's suicidal risk is assessed as acutely low and chronically low and moderate. The patient's homicidal risk is assessed as acutely low and chronically low. Homicidal: Homicidal Risk Current Homicidal Ideation: No Other Mental Health Assessments None utilized SUBSTANCE USE Substance Use Extended History Alcohol: Alcohol Current or past use: Yes Pattern of use: Reports 3 to 4 times a week unknown amount Date of last use and time: a few days ago Caffeine: Cannabis: Cannabis current or past use: Yes Pattern of use: daily Hallucinogens: Inhalants: Nicotine: Opioids: Sedative/Hypnotics/Anxiolytics: Stimulants: Methamphetamine current or past use: Yes Type: daily use all day every day Pattern of use: Denies needle use Over the counter medications: Other: Mental Health Treatment History Past Treatments: Pharmacotherapy, Outpatient Substance Use Treatment Pharmacotherapies details: He has been on medications in the past. He does not remember what any of them are. He stop taking medications when he was 19 years old. Patient confirmed he took medication in the past, but is not currently prescribed any medication formental health management. Davina ReidS.W.09/19/21 Outpatient Substance Abuse Treatment Details: He has been in treatment for methamphetamine abuse at [facility] in [place] through 09/19/21. He is clean for 1 month now. He did not return to treatment after evaluation in emergency department. Erinn Reid.09/19/21 Current Stressors Leaving treatment early Lack of permanent housing Coping Skills/Strengths Family support, Time with friends, Insightfulness and Motivation Ability to acquire knowledge,Premorbid level of function,Support of immediate family,Attitude of family ASSESSMENT / PLAN IMPRESSIONS: Patient is meeting diagnostic criteria for unspecified substance related disorder. Patient endorsed symptoms of daily substance use which negatively impacted his life. Patient was in residential treatment today prior to being sent to the ED for assessment. Patient has past diagnoses of several substance related disorders. Patient reported duration of symptoms as chronic. Patient reported experiencingsignificant distress or impairment in the following areas: quality of life, safety. DIAGNOSIS (DSM-5): F19.99 Unspecified substance related disorder INTERVENTIONS 1. Telehealth crisis assessment completed. 2. Brand Development Manager engaged the patient in Motivational Interviewing utilizing rapport building, empathetic communication and affirmations to complete the assessment process. Patient was not resistive. Brand Development Manager recommended the patient return to treatment or seek out the crisis center. 3. Discussed Plan of Care with Emergency Department care team, patient, and guardian. Patient refused treatment and crisis center. All are in agreement with patient's plan to discharge home. 4. There is no imminent risk for harm to self or others at this time, and patient does not meet criteria for inpatient psychiatric hospitalization or a 72-hour emergency psychiatric hold. The patient is appropriate to discharge home. 5. Brand Development Manager engaged patient in safety planning conversation. a. Patient identified the following warning signs: negative feelings, negative self-talk and negative behaviors b. Mental health professionals, including crisis services, the patient can contact to help crisis staff and substance treatment centers to arrange for admission to another treatment facility. c. In the event of an emergency, such as inability to care for self, suicidality, homicidally, or marked concern about safety; it has been recommended that the patient reach out for help by calling 9-1-1, or call the National Suicide Prevention Lifeline, local crisis center/mobile crisis team or present to the nearest emergency department for evaluation. 6. Resources provided: crisis resources and substance treatment resources. A list of agencies withinthe area that patient/family geographically resides or requests has been provided to and reviewed with patient/family. Disclosure of [place]'s financial interest in [facility] ([facility]) was provided to and acknowledged by patient and family. PLAN ?? Motivation for treatment/plan: fair ?? Level of care required or recommended at discharge: home with patient encouraged to check into another residential treatment facility to complete treatment program Anticipated barriers to the transition of care/plan: none Patient will increase stabilization of substance use and mental health needs. Patient will: utilize crisis supports Patient will discharge home and follow-up with residential substance providers. Social Work will assist as needed and requested. Telehealth Consult Start Time: 3:29pm Face to Face Start Time: 4:28pm Face to Face End Time: 4:44pm Face to face time (for billing purposes) 16 minutes total time, 20 minutes obtaining collateral withpatient's mother/guardian Freda Reid 09/19/2021 documented in this encounter Nursing Notes Anca Hawkins R.N. - 09/19/2021 3:44 PM CDT John was advised that he needed to go to ER to be evaluated at 1440. He came out of his room and stated that he wanted his bags and he was leaving. Security was called and he refused to go with them. He was loud and using profanity. Police were called and escorted patient to the ER. He did sign AMA form prior to leaving. All meds and property were sent with. documented in this encounter ED Notes Ruperto Tapia P.A.Hang., M.S. - 09/19/2021 5:37 PM CDT SUBJECTIVE CHIEF COMPLAINT/REASON FOR VISIT Psychiatric Evaluation (Pt states he was in [facility] voluntary for chemical dependancy sinceyesterday. Pt reports that when he was asked about SI he said he thinks about it but it was last week. staff told pt he had to come to the ED and pt became upset and staff called for security and police to assist with getting the patient to the ED. Patient calmed down in the ED after he was allowedto call his mother.) HISTORY OF PRESENT ILLNESS John Gavin is a 31 y.o. male presents for psychiatric evaluation. Patient is brought in by law enforcement. Patient has been found in [facility] voluntarily for chemical dependency. Patient was at a counseling session earlier today when during the counseling questions regarding suicidal ideation the patient answered in the affirmative. Patient was brought in by law enforcement for further evaluation. Here the patient states that he was having thoughts of self-harm approximately 1 week ago is not having them now. No thoughts of harm to others. Patient denies any recent illicitdrug use or alcohol use. Patient's mother who is also his guardian states that this appears to be his normal state when he is frustrated but does not believe that he is in a state where he would conduct self-harm. She describes this but she has seen a much worse in the past than this. PMH includes bipolar, ADHD, polysubstance dependence, hematemesis. REVIEW OF SYSTEMS Constitutional: Negative for fever. HENT: Negative for sore throat. Eyes: Negative for visual disturbance. Respiratory: Negative for shortness of breath. Cardiovascular: Negative for chest pain. Gastrointestinal: Negative for nausea and vomiting. Musculoskeletal: Negative for back pain. Skin: Negative for rash. Neurological: Negative for syncope. Hematological: Does not bruise/bleed easily. Psychiatric/Behavioral: Negative for homicidal ideas. OBJECTIVE Initial Vitals Temperature Pulse Rate Heart Rate Resp Rate Blood Pressure SpO2 09/19/21 1615 09/19/21 1615 09/19/21 1615 09/19/21 1615 09/19/21 1615 09/19/21 1615 36.4 ??C 90 90 18 110/84 100 % Pain Score 09/19/21 1529 0 - No pain PHYSICAL EXAMINATION Constitutional: No distress. HENT: Head: Atraumatic. Eyes: EOM are normal. Cardiovascular: Normal rate. Capillary refill: takes less than 3 seconds, Pulmonary/Chest: No tachypnea. No respiratory distress. Musculoskeletal: General: No deformity. Cervical back: Normal range of motion. Neurological: Alert and oriented to person, place, and time. He is not disoriented. Skin: Skin is warm and dry. He is not diaphoretic. Psychiatric: Talking loudly, verbally combative but redirectable ASSESSMENT/PLAN I reviewed previous medical records including documentation from previous visits. ED Course as of 09/19/212048Sep 19, 2021 1739 Discussed case with on-call rn social services and Sara Mcnair, who sees no indication for involuntary placement at present and the pt does not want placement voluntarily. Pt's guardian has been notified by rn social services. Pt will be discharged with an associate from [facility]. Final Diagnoses: as of 09/19/212048 Depression Major Disposition Vital Signs: BP 110/84 (BP Location: Left arm, Patient Position: Sitting) Pulse 90 Temp 36.4 ??C (Temporal) Resp 18 SpO2 100% The pt has been hemodynamically stable throughout their stay. Differential Patient is not intoxicated. No signs of infection on history or physical exam. No sign of suicidal ideation or homicidal at present The pt has significant depression which is been going on for quite some time. Patient was brought here for concerns that he may be currently having suicidal ideation. After evaluation by the rn social services of the patient in discussions with the patient and his guardian/his mother determination was thatthe patient was not a present threat to himself or others and was not indicated for involuntary admission. Patient discharged with his associate from [facility]. Pt understands return precautions. Discharge instructions: Return to the emergency department if you develop worsening of your symptoms including having thoughts of wanting to hurt yourself or others. Ruperto Tapia P.A.-C., M.S. 09/19/212048 Pily Peña R.N. - 09/19/2021 4:34 PM CDT The patient was present for a consult via real-time audio/video technology by Sara MCKEON Medicare Sales Executive on 09/19/2021 Pily Peña R.N. 09/19/21 1636 documented in this encounter Plan of Treatment Not on filedocumented as of this encounter Visit Diagnoses Diagnosis Depression Major - Primary documented in this encounter Additional Health Concerns Assessment Noted Time PHQ-9 Depression Total Score: 15 06/06/2019 10:09 AM C DT documented as of this encounter Care Teams Concrete Pipe Machine Operator Relationship Specialty Start Date End Date Julian Santana M.D. PCP - General 05/13/17 [address] [place] [phone] documented as of this encounter
--- OUTSIDE RECORDS SUMMARY | 2022-09-25 11:00 | XMS_ITS | Encounter Summary ---
:1990 Author Organization [facility] Address [address] [place] [address] Care Team Providers Name Role Phone Julian Santana M.D. Primary Care Provider Encounter Details Date Type Department Care Team Description 09/18/2021 Hospital Encounter Department of Dana Pérez, Laboratory Medicine in SPACE OFFICERJorgePJunaid Daniel a [address], [place] [address] [place] [phone] (Wo rk) Social History Tobacco Use Types [...] Date Last Indicated Resolved Time COVID19 Pending 09/18/2021 09/18/2021 09/18/2021 6:09 PM CDT Assessment Noted Time PHQ-9 Depression Total Score: 15 06/06/2019 10:09 AM C DT documented as of this encounter Care Teams Attorney Law Clerk Relationship Specialty Start Date End Date Julian Santana M.D. PCP - General 6/15/17 [address] [place] [phone] documented as of this encounter
--- OUTSIDE RECORDS SUMMARY | 2022-09-25 11:00 | XMS_ITS | Encounter Summary ---
:1990 Author Organization [facility] Address [address] [place] [address] Care Team Providers Name Role Phone Julian Santana M.D. Primary Care Provider Encounter Details Date Type Department Care Team Description 10/22/2020 Documentation [facility] at Shannon Mayo APRN, [facility] C.NFabricio, M.S.N. [address] [place] [address] [place] [address] [place], [place] [phone] (Wo rk) Social History Tobacco Use Types [...] as of this encounter Progress Notes Shannon Mayo APRN C.N.PJaciel, M.S.N. - 10/22/2020 3:25 PM CST Two additional attempts were made to contact patient by phone without success. STRIAL TECHNICIAN documented in this encounter Plan of Treatment Not on filedocumented as of this encounter Visit Diagnoses Not on filedocumented in this encounter Additional Health Concerns Assessment Noted Time PHQ-9 Depression Total Score: 15 06/06/2019 10:09 AM C DT documented as of this encounter Care Teams Director Of Testing Relationship Specialty Start Date End Date Julian Santana M.D. PCP - General 05/13/17 [address] [place] [phone] documented as of this encounter
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
--- OUTSIDE RECORDS SUMMARY | 2022-09-25 11:00 | XMS_ITS | Encounter Summary ---
:1990 Author Organization [facility] Address [address] [place] [address] Care Team Providers Name Role Phone Julian Santana M.D. Primary Care Provider Reason for Visit Reason Comments Medication Visit D/C from inpatient rehab 05/29 Appointment Request (Routine) - Closed Specialty Diagnoses / Procedures Referred By Contact Refer red To Contact Family Medicine Referral ID Status Reason Start Date Expiration Date Visits Requ ested Visits Authorized [id number] Closed 06/15/2022 06/15/2023 1 1 Encounter Details Date Type Department Care Team Description 06/16/2022 Office Visit Department of Family Julian Olson olar I Disorder (HCC) (Primary Dx); Medicine, [place] T, P.A.-C. Suicide Attempt Subsequent Encounter (HC C); Clinic, [address] Dependence Polysubstance (HCC); [place], [place] Other Psychoactive Substance Use Unspecified With Unspecified Psychoactive Substance Induced Disorder (HCC); [address] [place] [phone] Alcohol Abuse Counseling And Surveillanc e Of Alcoholic; [place], [place] [phone] Drug Abuse Coun seling And Surveillance Of Drug Abuser [phone] (Work) [phone] Social History Tobacco Use Types Packs/Day Years [...] 16 06/16/2022 2:15 PM CDT Oxygen Saturation - - Inhaled Oxygen Concentration - - Weight 93.7 kg (206 lb 9.1 oz) 06/16/2022 2:15 PM CDT Height - - Body Mass Index 30.51 12/12/2021 6:05 PM CEMENT TESTER ASSISTANT documented in this encounter Progress Notes Julian Olson P.A.-C. - 06/16/2022 2:30 PM CDT SUBJECTIVE HISTORY OF PRESENT ILLNESS John Gavin is a 31 y.o. male presenting with his mother for follow-up after recent release from in-patient substance abuse treatment and in- patient psychiatric stay yesterday. 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 He reports last using April 12, 2022. He attempted to hang himself while in [facility] April 13, 2022. He spent 1.5 weeks in in-patient Psychiatry. Hespent an additional 6 weeks in in- patient substance abuse treatment. He is currently taking trazodone 100 mg q.h.s., Wellbutrin 150 mg daily, and hydroxyzine p.r.n.. He reports these are working very well for him. He denies luis miguel. He reports mildly depressed, but overall happy in optimistic with his progress. He denies any SI or HI. He will start outpatient treatment from 6:00 p.m. to 9:00 p.m. Wednesday through moving forward. He plans to go to alcoholics anonymous and narcotics anonymous meetings weekly. He hopes to gain appointment in approximately 1 month. He is working closely with his fare enforcement officer. OBJECTIVE PHYSICAL EXAMINATION Constitutional General: He is not in acute distress. Appearance: Normal appearance. HENT Head: Normocephalic. Pulmonary Effort: Pulmonary effort is normal. Neurological General: No focal deficit present. Mental Status: He is alert and oriented to person, place, and time. Psychiatric Attention and Perception: Attention and perception normal. Mood and Affect: Mood and affect normal. Mood is not anxious or depressed. Speech: Speech normal. Behavior: Behavior normal. Behavior is cooperative. Thought Content: Thought content normal. Thought content does not include homicidal or suicidal ideation. Thought content does not include homicidal or suicidal plan. ASSESSMENT / PLAN #1 Bipolar I Disorder (HCC) #2 Suicide Attempt Subsequent Encounter ([facility]) #3 Dependence Polysubstance ([facility]) #4 Other Psychoactive Substance Use Unspecified With Unspecified Psychoactive Substance Induced Disorder (HCC) #5 Alcohol Abuse Counseling And Surveillance Of Alcoholic #6 Drug Abuse Counseling And Surveillance Of Drug Abuser - doing well. Refills given. Has appointment with [facility] to establish long-term psychiatric care next month. - traZODone (DESYREL) 100 mg tablet; Take 1 tablet (100 mg total) by mouth at bedtime., Starting Wed06/16/2022, Until Wed09/14/2022, Normal - buPROPion XL (WELLBUTRIN XL) 150 mg 24 hr tablet; Take 1 tablet (150 mg total) by mouth daily., Starting Wed06/16/2022, Until Wed09/14/2022, Normal - hydrOXYzine (ATARAX) 25 mg tablet; Take 1 tablet (25 mg total) by mouth every 6 (six) hours as needed for anxiety., Starting Wed06/16/2022, Until Wed09/14/2022 at 2359, Normal Patient/caregiver was instructed to contact the clinic if symptoms fail to improve as discussed, worsen, or change. Patient/caregiver was in agreement with the care plan and all questions were answered. Health maintenance was discussed, and the patient/caregiver was encouraged to complete these if notalready completed. Patient left in no acute distress. Julian Olson P.A.-C. documented in this encounter Plan of Treatment Not on filedocumented as of this encounter Visit Diagnoses Diagnosis Bipolar I Disorder (HCC) - Primary Suicide Attempt Subsequent Encounter (HC C) Dependence Polysubstance (HCC) Other Psychoactive Substance Use Unspeci fied With Unspecified Psychoactive Substance Induced Disorder (HCC) Alcohol Abuse Counseling And Surveillanc e Of Alcoholic Drug Abuse Counseling And Surveillance O f Drug Abuser documented in this encounter Additional Health Concerns Assessment Noted Time PHQ-9 Depression Total Score: 15 06/06/2019 10:09 AM C DT documented as of this encounter Care Teams Shelter Director Relationship Specialty Start Date End Date Julian Santana M.D. PCP - General 05/13/17 [address] [place] [phone] documented as of this encounter
--- OUTSIDE RECORDS SUMMARY | 2022-09-25 11:00 | XMS_ITS | Encounter Summary ---
:1990 Author Organization [facility] Address [address] [place] [address] Care Team Providers Name Role Phone Julian Santana M.D. Primary Care Provider Encounter Details Date Type Department Care Team Description 02/12/2021 Orders Only Department of Internal Isaura Mendoza, Medicine in [place], JOSE DAVID, C. N.PJaciel, GREY PERCHER-C [place] [address] [place] [phone] (Wo rk) Social History Tobacco Use Types [...] documented as of this encounter Care Teams Paper Counter Relationship Specialty Start Date End Date Julian Santana M.D. PCP - General 05/13/17 [address] [place] [phone] documented as of this encounter
--- OUTSIDE RECORDS SUMMARY | 2022-09-25 11:00 | XMS_ITS | Encounter Summary ---
:1990 Author Organization [facility] Address [address] [place] [address] Care Team Providers Name Role Phone Julian Santana M.D. Primary Care Provider Reason for Visit Reason Onset Date Comments Outpatient COVID-19 Testing 10/16/2020 Encounter Details Date Type Department Care Team Description 10/16/2020 External Outreach Department of Gloria Akers M.D. [address] [place] [phone] Infection Upper Medicine, [place] Julian Olson, P.A.-CJaciel [address] [place] [phone] Respiratory (Primary Clinic, in [place], [place]) [address] [phone] Social History Tobacco Use Types Packs/Day [...] documented as of this encounter Progress Notes Elisabet Vidal L.PJacielN. - 10/16/2020 4:12 PM CST Encounter created for the drive-through COVID-19 testing. TRIMMER documented in this encounter Plan of Treatment Not on filedocumented as of this encounter Visit Diagnoses Diagnosis Infection Upper Respiratory - Primary documented in this encounter Additional Health Concerns Infection Onset Date Last Indicated Resolved Time COVID19 Pending 10/16/2020 10/17/2020 10/19/2020 8:38 PM TILE TRIMMER Assessment Noted Time PHQ-9 Depression Total Score: 15 06/06/2019 10:09 AM C DT documented as of this encounter Care Teams Passport Application Examiner Relationship Specialty Start Date End Date Julian Santana M.D. PCP - General 05/13/17 [address] [place] [phone] documented as of this encounter
--- OUTSIDE RECORDS SUMMARY | 2022-09-25 11:00 | XMS_ITS | Encounter Summary ---
:1990 Author Organization [facility] Address [address] [place] [address] Care Team Providers Name Role Phone Julian Santana M.D. Primary Care Provider Reason for Visit Reason Comments Headache Neck Pain Abdominal Pain Encounter Details Date Type Department Care Team Description 12/12/2021 Emergency [facility] Jeff Biswas, COVID- 19 Infection (Primary Dx); Department P.A.-C. Headache Unspecified; [address] [facility] Abdominal Pain [facility] [place] [phone] (Wo rk) Social History Tobacco Use Types [...] Sign Reading Time Taken Comments Blood Pressure 120/76 12/12/2021 6:04 PM STAFF RADIOLOGIST Pulse 104 12/12/2021 7:00 PM STAFF RADIOLOGIST Temperature 38.1 ??C (100.5 ??F) 12/12/2021 6:04 PM STAFF RADIOLOGIST Respiratory Rate 18 12/12/2021 6:04 PM STAFF RADIOLOGIST Oxygen Saturation 90% 12/12/2021 7:00 PM STAFF RADIOLOGIST Inhaled Oxygen Concentration - - Weight 70.8 kg (156 lb) 12/12/2021 6:05 PM STAFF RADIOLOGIST Height 175.3 cm (5' 9) 12/12/2021 6:05 PM STAFF RADIOLOGIST Body Mass Index 23.04 12/12/2021 6:05 PM STAFF RADIOLOGIST documented in this encounter Medications at Time of Discharge Medication Sig Dispensed Refills Start Date End Date nicotine (NICODERM CQ) 14 Place 1 patch on the 30 patch 1 09/19/2021 06/16/2022 mg/24 hr patch skin daily. documented as of this encounter ED Notes Judy Castillo R.N. - 12/12/2021 6:09 PM CST Patient presents from home with parent c/o headache, abdominal pain in LLQ and neck pain. Patient israting pain 07/08, c/o nausea but denies vomiting or diarrhea. Patient states he has tried taking advil but did not have relief. Judy Castillo R.N. 12/12/21 181 F RADIOLOGIST Jeff Biswas P.A.-C. - 12/12/2021 6:06 PM CST SUBJECTIVE CHIEF COMPLAINT/REASON FOR VISIT Headache, Neck Pain, and Abdominal Pain HISTORY OF PRESENT ILLNESS John Gavin is a 31 y.o. male presents to [facility] requesting evaluation for migraine, abdominal pain, neck pain. Past medical history notable for but not limited tobipolar 1 disorder, ADHD, dependence polysubstance. Patient has not had COVID vaccines. Patient explains that he had a mild headache last night and woke up this morning with a severe headache that is moving from his neck up to the top of his head. No trauma to head. Patient is not anticoagulated. Notes headache feels similar to prior migraines but slightly more severe. Notes he took approximately 400mg of Advil about 20-40 minutes prior to arrival. Notes some photophobia. No aphasia or dysarthria. No focal neurological deficits. No specific COVID concerns. No chest pain. No shortness of breath. Nocough. Additionally patient reports that this morning he noticed some left upper and left lower abdominal pain that is constant and achy in character. No obvious alleviating or aggravating factors. Notes lastbowel movement was about 1-2 days ago and was hard. No melena or hematochezia. No nausea or vomiting. Notes he is feeling chilled but no outpatient documented fevers. No urinary symptoms. No trauma to abdomen. No prior abdominal surgical history. Patient notes he is a IV drug user. Patient uses methamphetamine regularly. Patient injects primarily in his upper extremities, most recently in his right forearm. Patient usually uses sterile needles and sterile water but did use some tap water once in the last 24 hours which is abnormal for him. 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 Negative for fever. HENT: Negative for ear pain and sore throat. Eyes: Positive for photophobia. Negative for visual disturbance. Respiratory: Negative for cough and shortness of breath. Cardiovascular: Negative for chest pain and leg swelling. Gastrointestinal: Positive for abdominal pain. Negative for blood in stool, diarrhea, nausea and vomiting. Genitourinary: Negative for dysuria and hematuria. Musculoskeletal: Positive for neck pain. Patient denies any new or worsening joint/muscle pain Skin: Negative for rash. Neurological: Positive for headaches. Negative for dizziness and syncope. Psychiatric/Behavioral: Positive for substance abuse. OBJECTIVE Initial Vitals Temperature Pulse Rate Heart Rate Resp Rate Blood Pressure SpO2 12/12/21 1804 12/12/21 1804 -- 12/12/21 1804 12/12/21 1804 12/12/21 1804 (!) 38.1 ??C 95 18 120/76 95 % Pain Score 12/12/21 1808 8 PHYSICAL EXAMINATION Constitutional: Nursing note and vitals reviewed. He appears not lethargic. No distress. HENT: Head: Normocephalic and atraumatic. No signs of injury. Nose: Nose normal. Mouth/Throat: Mucous membranes are moist. Eyes: Conjunctivae and EOM are normal. Pupils are equal, round, and reactive to light. Cardiovascular: Normal rate. Capillary refill: takes less than 3 seconds, Edema: no edema noted Pulmonary/Chest: Effort normal. No tachypnea. No respiratory distress. Abdominal: Soft and abdomen not firm. Normal appearance and non-distended. exhibits no distension. There is abdominal tenderness in the left upper quadrant, left flank and left lower quadrant. There isno rigidity, no rebound and no guarding. Musculoskeletal: General: No deformity. Normal range of motion. Cervical back: Normal range of motion. Neurological: Alert and oriented to person, place, and time. He is not disoriented. He exhibits normal muscle tone. Coordination normal. Skin: Skin is warm, dry and normal color. He is not diaphoretic. Psychiatric: He has a normal mood and affect. Behavior is normal. ED Medication Administration from 12/12/2021 1759 to 12/12/2021 1945 Date/Time Order Dose Route Action Action by 12/12/2021 1829 NaCl 0.9 % bolus 1,000 mL 1,000 mL intravenous New Bag Alhaji Castillo 12/12/2021 1916 NaCl 0.9 % bolus 1,000 mL 0 mL intravenous Stopped Caron Colbert 12/12/2021 1834 ketorolac injection 15 mg (TORADOL) 15 mg intravenous Given Alhaji Castillo 12/12/2021 1834 acetaminophen tablet 1,000 mg (TYLENOL) 1,000 mg oral Given Alhaji Castillo 12/12/2021 1920 droperidoL injection 0.625 mg (INAPSINE) 0.625 mg intravenous Given Caron Colbert ASSESSMENT / PLAN ASSESSMENT/PLAN IMPRESSION AND PLAN The patient presents to the ED for evaluation of migraine, abdominal pain, neck pain. ?? DISPOSITION: Patient is awake, alert, oriented and appropriate to questions who is nontoxic or ill-appearing. Initial presentation to ED notable for a febrile 31-year-old male with vital signs within normal limits.See HPI for more details. Secondary to IV drug user with fever a shared decision making discussion was had proceeding with septic workup including blood cultures. Additionally will obtain IV access forfluids and analgesic medications. Respiratory panel testing ordered. Will reassess in further discuss need for CT imaging using shared decision-making discussion in regard to his abdominal pain that has developed over the past 8-10 hours. See ED Course for diagnositics, disposition and further medical decision making. DIFFERENTIAL DIAGNOSIS Influenza, COVID, viral syndrome, gastroenteritis, constipation, migraine, tension headache, colitis, diverticulitis, bowel colic, renal colic, kidney stone, pyelonephritis, urinary tract infection, sepsis I reviewed previous medical records including documentation from previous visits and lab results. I personally reviewed the lab result(s) and my interpretation is documented in ED Course. ED Course as of 12/12/211948Dec 12, 20211916 Patient notes pain is improved however still rates at a 7/10 in his abdomen. Reexamine abdomen and patient is having some guarding to deep palpation in left upper quadrant and left flank. No peritoneal signs. Exam fairly consistent with initial abdominal exam. Ultimately with his abdominal pain remaining undifferentiated in the setting of fever and with significant tenderness on exam we will proceed with CT imaging to evaluate for diverticulitis other acute intra-abdominal infection. Will trial some IV droperidol for additional pain control. Additional L of fluid ordered. 1928 SARS Coronavirus-2, PCR(!): Detected 1939 Patient has active COVID infection that was detected via PCR during ED course. Patient was having improvement in symptoms but due to his abdominal pain on exam a discussion was had in regard to CT imaging which patient agreed to. In CT patient became upset during prompts for imaging and ultimately got up off the CT table and walked out of the department. Patient did allow to nursing to remove IV. Food Service Tray Attendant did have brief discussion with patient for which he was able to demonstrate medical making capacity - which he also demonstrated during initial interview and throughout ED course. However he would not answer additional questions stating that he wanted to go home and sleep and was done. Patient then was asked to placement mask back over his face and said to staff don't become a fucking doctor if you don't want to be around COVID!. Security was alerted. Patient left ambulatory. As patient was leaving recommended to come back for rapidly worsening symptoms or new symptoms. Final Diagnoses: as of 12/12/211948 COVID-19 Infection Headache Unspecified Abdominal Pain - Primarily left-sided Jeff Biswas, P.A.-C. 12/12/21 1950 F RADIOLOGIST documented in this encounter Miscellaneous Notes Result Encounter Note - Mariely Lakhani R.N. - 12/13/2021 9:17 AM STAFF RADIOLOGIST Your patient has tested positive for SARS-CoV-2, the virus that causes COVID-19. IMPORTANT: Please update the patient's problem list and medication list to ensure an accurate and timely evaluation for COVID-19 treatments, including various medications and Remote Patient Monitoring (RPM). If eligible for COVID-19 treatments or RPM, your patient will be contacted by a designated team of nurses to coordinate the care. The [facility] ([facility]) sends general guidance about COVID-19 to all patients by letter or portal, except when a patient is hospitalized or resides in a care home. The [facility] will also call all adult patients at highest risk for severe complications of COVID-19 andall who require an resident care aid. Any patient with a MASS score 1 or greater or a COVID-19 score 1 or greater may be at higher risk ofsevere disease. These patients will follow up directly with primary care. The primary care team willdecide if the patient needs a phone call or a follow up portal message to assess symptom severity, provide individualized guidance on symptom monitoring or symptom management, or to reinforce when to se ek care. MWT encourages patients to follow up with their PCP with questions, worsening symptoms, or for symptom management. For questions, contact the [facility] ([facility]): Pager: [phone] In basket: P RST/MCHS COVID-19 POSITIVE Covid Care e-consult Components of the Monoclonal Antibody Selection Score (MASS) Compromised Immune System/Transplant = 4 points Chronic Kidney Disease on Dialysis = 4 points Age greater than or equal to 55 and chronic pulmonary disease = 3 points Age greater than or equal to 65 = 2 points Age greater than or equal to = 2 points Diabetes = 2 points Age greater than or equal to 55 AND cardiovascular disease = 2 points Age greater than or equal to 55 and hypertension = 1 point NOTE: At the time of testing, patients are instructed to obtain the result by calling the [facility] result line or by checking their online services account. F RADIOLOGIST documented in this encounter Plan of Treatment Not on filedocumented as of this encounter Procedures Procedure Name Priority Date/Time Associated Comments Diagnosis BACTERIA / AFIA STAT 12/12/2021 6:36 PM Res ults for this CULTURE, BLOOD STAFF RADIOLOGIST procedure are in the results section. CBC WITH DIFFERENTIAL, STAT 12/12/2021 6:36 PM Results for this B STAFF RADIOLOGIST procedure are i n the results section. C-REACTIVE PROTEIN STAT 12/12/2021 6:36 PM Res ults for this (CRP), S/P STAFF RADIOLOGIST procedure are i n the results section. LACTATE, B/P STAT 12/12/2021 6:36 PM Results f or this STAFF RADIOLOGIST procedure are i n the results section. COMPREHENSIVE STAT 12/12/2021 6:36 PM Results for this METABOLIC PANEL, S/P STAFF RADIOLOGIST procedu re are in the results section. SARS COV-2,INFLUENZA STAT 12/12/2021 6:28 PM R esults for this A/B,RSV,PCR, V STAFF RADIOLOGIST procedure are in the results section. BACTERIA / AFIA STAT 12/12/2021 6:28 PM Res ults for this CULTURE, BLOOD STAFF RADIOLOGIST procedure are in the results section. documented in this encounter Results Bacteria / Afia Culture, Blood #2 (12/12/2021 6:36 PM ST[facility]FF RADIOLOGIST[facility] Signature Bacteria/Winsome No growth 12/17/2021 [facility] da Culture, after 5 7:08 PM STAFF RADIOLOGIST Blood day/s of incubation. Specimen (Source) Anatomical Collection Method Collection Time Re ceived Time Location / / Volume Laterality Blood (Blood, 12/12/2021 6:36 12/12/2021 6:39 Peripheral Draw) PM STAFF RADIOLOGIST PM STAFF RADIOLOGIST Comment: Specimen Source Site: Blood Jeff Biswas P.A.-C. LAB MICROBIOLOGY - GENERAL O RDERABLES Performing Organization Address City/State/ZIP Code Phon e Number [facility]- [address] [place], [place] [address] [address] [facility] [place] [address] System in [place] [address] (ABNORMAL) CRP (C-Reactive Protein) (12/12/2021 6:36 PM STAFF RADIOLOGIST) athologist Signature C-Reactive 11.2 (H) <=8.0 mg/L 12/12/2021 [facility] Protein (CRP), 7:01 PM STAFF RADIOLOGIST P Specimen Anatomical Collection Method Collection Time Receive d Time (Source) Location / / Volume Laterality Blood (Blood, 12/12/2021 6:36 PM 12/12/19 6:39 Venous) STAFF RADIOLOGIST PM STAFF RADIOLOGIST Jeff Biswas P.A.-C. LAB BLOOD ADD-ON Performing Organization Address City/State/ZIP Code Phon e Number [facility]- [address] [place] [address] [facility] [place] [address] System in [place] [address] [place] Lactate (12/12/2021 6:36 PM STAFF RADIOLOGIST) athologist Signature Lactate, P 1.0 0.5 - 2.2 12/12/2021 [facility] mmol/L 6:58 PM STAFF RADIOLOGIST Specimen Anatomical Collection Method Collection Time Receive d Time (Source) Location / / Volume Laterality Blood (Blood, 12/12/2021 6:36 PM 12/12/19 6:39 Venous) STAFF RADIOLOGIST PM STAFF RADIOLOGIST Jeff Biswas P.A.-C. LAB BLOOD NON ADD-ON Performing Organization Address City/State/ZIP Code Phon e Number [facility]- [address] [place], [place] [address] [place] [address] System in [place] [address] (ABNORMAL) Comprehensive Metabolic Panel (12/12/2021 6:36 PM STAFF RADIOLOGIST) athologist Signature Potassium, P 4.2 3.6 - 5.2 12/12/2021 [facility] mmol/L 7:00 PM STAFF RADIOLOGIST Sodium, P 134 (L) 135 - 145 12/12/2021 [facility] mmol/L 7:00 PM STAFF RADIOLOGIST Chloride, P 99 98 - 107 12/12/2021 [facility] mmol/L 7:00 PM STAFF RADIOLOGIST Bicarbonate, P 28 22 - 29 12/12/2021 [facility] mmol/L 7:01 PM STAFF RADIOLOGIST Anion Gap, P 7 7 - 15 12/12/2021 [facility] 7:00 PM STAFF RADIOLOGIST BUN (Blood Urea 13 8 - 24 12/12/2021 [facility] Nitrogen), P mg/dL 7:01 PM STAFF RADIOLOGIST Creatinine 0.87 0.74 - 12/12/2021 [facility] 1.35 mg/dL 7:01 PM STAFF RADIOLOGIST eGFR-Black/Afri >90 >=60 12/12/2021 [facility] can [place] mL/min/BSA 7:01 PM STAFF RADIOLOGIST Comment: ----ADDITIONAL INFORMATION---- Estimated GFR calculated using the 2009 CKD_EPI creatinine equation. eGFR Non-Black/ >90 >=60 mL/min/BSA 12/12/2021 7:01 PM STAFF RADIOLOGIST [facility] Comment: ----ADDITIONAL INFORMATION---- Estimated GFR calculated using the 2009 CKD_EPI creatinine equation. Calcium, Total, P 8.8 8.6 - 10.0 mg/dL 12/12/2021 7:01 PM STAFF RADIOLOGIST [facility] Glucose, P 103 70 - 140 mg/dL 12/12/2021 7:01 PM STAFF RADIOLOGIST R [facility] Protein, Total, P 6.8 6.3 - 7.9 g/dL 12/12/2021 7:01 P M STAFF RADIOLOGIST [facility] Albumin, P 3.9 3.5 - 5.0 g/dL 12/12/2021 7:01 PM STAFF RADIOLOGIST R DW[facility] Aspartate Aminotransferase 64 (H) 8 - 48 U/L 12/12/2021 7 :01 PM STAFF RADIOLOGIST R[facility] (AST), P Alkaline Phosphatase, P 96 40 - 129 U/L 12/12/2021 7: 01 PM STAFF RADIOLOGIST [facility] Alanine Aminotransferase 24 7 - 55 U/L 12/12/2021 7:0 1 PM STAFF RADIOLOGIST [facility] (ALT), P Bilirubin, Total, P 0.5 <=1.2 mg/dL 12/12/2021 7:01 PM STAFF RADIOLOGIST [facility] Specimen Anatomical Collection Method Collection Time Receive d Time (Source) Location / / Volume Laterality Blood (Blood, 12/12/2021 6:36 PM 12/12/19 6:39 Venous) STAFF RADIOLOGIST PM STAFF RADIOLOGIST Jeff Biswas P.A.-C. LAB BLOOD ADD-ON Performing Organization Address City/State/ZIP Code Phon e Number [facility] [address] [place] [address] System in [place] [address] (ABNORMAL) CBC with Differential, Blood (12/12/2021 6:36 PM STAFF RADIOLOGIST) [facility] gist Method Time Signature Hemoglobin 14.6 13.2 - 12/12/2021 [facility] 16.6 g/dL 6:51 PM STAFF RADIOLOGIST Hematocrit 43.5 38.3 - 12/12/2021 [facility] 48.6 % 6:51 PM STAFF RADIOLOGIST Erythrocytes 4.89 4.35 - 12/12/2021 [facility] 5.65 6:51 PM STAFF RADIOLOGIST x10(12)/L MCV 89.0 78.2 - 12/12/2021 [facility] 97.9 fL 6:51 PM STAFF RADIOLOGIST RBC Distrib Width 12.1 11.8 - 12/12/2021 [facility] 14.5 % 6:51 PM STAFF RADIOLOGIST Platelet Count 210 135 - 317 12/12/2021 [facility] x10(9)/L 6:51 PM STAFF RADIOLOGIST Leukocytes 8.4 3.4 - 9.6 12/12/2021 [facility] x10(9)/L 6:51 PM STAFF RADIOLOGIST Neutrophils 6.80 (H) 1.56 - 12/12/2021 [facility] 6.45 6:51 PM STAFF RADIOLOGIST x10(9)/L Lymphocytes 0.47 (L) 0.95 - 12/12/2021 [facility] 3.07 6:51 PM STAFF RADIOLOGIST x10(9)/L Monocytes 0.90 (H) 0.26 - 12/12/2021 [facility] 0.81 6:51 PM STAFF RADIOLOGIST x10(9)/L Eosinophils 0.13 0.03 - 12/12/2021 [facility] 0.48 6:51 PM STAFF RADIOLOGIST x10(9)/L Basophils 0.05 0.01 - 12/12/2021 [facility] 0.08 6:51 PM STAFF RADIOLOGIST x10(9)/L Specimen Anatomical Collection Method Collection Time Receive d Time (Source) Location / / Volume Laterality Blood (Blood, 12/12/2021 6:36 PM 12/12/19 6:39 Venous) STAFF RADIOLOGIST PM STAFF RADIOLOGIST Jeff Biswas P.A.-C. LAB BLOOD ADD-ON Performing Organization Address City/State/ZIP Code Phon e Number [facility]- [address] [place], [place] [address] [facility] [address] System in [place] [address] Bacteria / Afia Culture, Blood #1 (12/12/2021 6:28 PM STAFF RADIOLOGIST) [facility] Method Time Signature Bacteria/Winsome No growth 12/17/2021 [facility] da Culture, after 5 7:08 PM STAFF RADIOLOGIST Blood day/s of incubation. Specimen (Source) Anatomical Collection Method Collection Time Re ceived Time Location / / Volume Laterality Blood (Blood, 12/12/2021 6:28 12/12/2021 6:39 Peripheral Draw) PM STAFF RADIOLOGIST PM STAFF RADIOLOGIST Comment: Specimen Source Site: Blood Jeff Biswas P.A.-C. LAB MICROBIOLOGY - GENERAL O RDERABLES Performing Organization Address City/State/ZIP Code Phon e Number [facility]- [address] [place] [address] [facility] [address] System in [place] [address] (ABNORMAL) SARS CoV-2, Influenza A/B, RSV, PCR Symptomatic (12/12/2021 6:28 PM STAFF RADIOLOGIST) [facility] Method Time Signature Influenza A, Undetected Undetected 12/12/2021 [facility] PCR 7:24 PM STAFF RADIOLOGIST Comment: Influenza A viral RNA absent. Influenza B, PCR Undetected Undetected 12/12/2021 7:24 PM CS T R[facility]G Comment: Influenza B viral RNA absent. Respiratory Syncytial Virus, Undetected Undetected 7:24 PM STAFF RADIOLOGIST [facility] PCR Comment: RSV RNA absent. [id number], PCR Detected (A) Undetected 12/12/2021 7 :24 PM STAFF RADIOLOGIST [facility] Comment: SARS-CoV-2 RNA present. ----ADDITIONAL INFORMATION---- This RT-PCR test using the Xpert Xpress SARS-CoV-2/Flu/RSV assay ([employer] performed on the [employer] rt DX systems has received Emergency Use Authorization (EU A) by the U.S. Food and Drug Administration. Performanc e characteristics were verified by [facility] inic in a manner consistent with CLIA requirements . Fact sheets for this Emergency Use Autho rization (EUA) assay can be found at the following link s: For Healthcare Providers: https://www.fda.gov/media/835543/downloa d For Patients: https://www.fda.gov/media/048900/downloa d Specimen Source Swab, Nasopharynx 12/12/2021 6:39 PM STAFF RADIOLOGIST [facility] Specimen Anatomical Collection Method Collection Time Receive d Time (Source) Location / / Volume Laterality Varies 12/12/2021 6:28 PM 6:39 (Nasopharynx) STAFF RADIOLOGIST PM STAFF RADIOLOGIST Jeff Biswas P.A.-C. LAB MICROBIOLOGY - GENERAL O RDERABLES Performing Organization Address City/State/ZIP Code Phon e Number [facility] [address] [facility] [place] [place] [address] [facility] [address] System in [place] [address] [place] [address] [place] documented in this encounter Visit Diagnoses Diagnosis COVID-19 Infection - Primary Headache Unspecified Abdominal Pain documented in this encounter Administered Medications Inactive Administered Medications - up to 3 most recent administrations Medication Order MAR Action Action Date Dose Rate Site acetaminophen tablet 1,000 mg Given 12/12/2021 6:34 PM STAFF RADIOLOGIST 1,000 mg (TYLENOL) 1,000 mg, oral, Once, On Wed12/12/21 at 1819, For 1 dose droperidoL injection 0.625 mg (INAPSINE) Given 12/12/2021 7:20 PM STAFF RADIOLOGIST 0.625 mg 0.625 mg, intravenous, Once, On Wed12/12/21 at 1916, For 1 dose ketorolac injection 15 mg (TORADOL) Given 12/12/2021 6:34 PM STAFF RADIOLOGIST 15 mg 15 mg, intravenous, Once, On Wed12/12/21 at 1819, For 1 dose, Adult IV push rate: Over 15 seconds. Peds IV push rate: Over 1 minute. 60 mg dose only for IM, not recommended for IV. NaCl 0.9 % bolus 1,000 mL New Bag 12/12/2021 6:29 PM STAFF RADIOLOGIST 1,000 mL 1000 mL/hr 1,000 mL, intravenous, at 1,000 mL/hr, Administer over 1 Hours, Once, On Wed12/12/21 at 1819, For 1 dose sodium chloride 0.9 % injection 10 mL 10 mL, intravenous, Once in imaging, dinah e care, Starting on Wed12/12/21 at 1917, For 1 dose sodium chloride 0.9 % injection 2-10 mL 2-10 mL, intravenous, As needed, line care, Starting o n Wed12/12/21 at 1817 documented in this encounter Active and Recently Administered Medications Times are shown in STAFF RADIOLOGIST. Scheduled Medication Order 12/10/2021 12/11/2021 12/12/2021 acetaminophen tablet 1,000 mg (TYLENOL) (COMPLETED) 1833 (Given - Provider: Judy Castillo R.N.) 1,000 mg, oral, Once, On Wed12/12/21 at 181, For 1 dose droperidoL injection 0.625 mg (INAPSINE) (COMPLETED) 1919 (Given - Provider: Lenny Colbert R.N.) 0.625 mg, intravenous, Once, On Wed12/12/21 at 191, For 1 dose ketorolac injection 15 mg (TORADOL) (COMPLETED) 1833 (Given - Provider: Judy Castillo R.N.) 15 mg, intravenous, Once, On Wed12/12/21 at 1819, For 1 dose, Adult IV push rate: Over 15 seconds. Peds IV push rate: Over 1 minute. 60 mg dose only for IM, not recommended for IV. NaCl 0.9 % bolus 1,000 mL (COMPLETED) 1828 (New Bag - Provider: Judy Castillo R.N.)1915 (Stopped - Provider: Lenny Colbert R.N.) 1,000 mL, intravenous, at 1,000 mL/hr, A dminister over 1 Hours, Once, On Wed12/12/21 at 1819, For 1 dose NaCl 0.9 % bolus 1,000 mL 1915 ( Due) 1,000 mL, intravenous, at 1,000 mL/hr, A dminister over 1 Hours, Once, On Wed12/12/21 at 191, For 1 dose PRN Medication Order 12/10/2021 12/11/2021 12/12/2021 sodium chloride 0.9 % injection 10 mL 10 mL, intravenous, Once in imaging, dinah e care, Starting on Wed12/12/21 at 1917, For 1 dose sodium chloride 0.9 % injection 2-10 mL(Linked Group 1) 2-10 mL, intravenous, As needed, line care, Starting on 12/12 at 1817 Linked Groups Order Group 1: Place peripheral IV: No upper extremity site restrictions (COMPLETED) Upper extremity site restriction: No upp er extremity site restrictions
Quantity of PIVs requested: One
STAT, Once, On Wed12/12/21 at 1818, For 1 occurrence And sodium chloride 0.9 % injection 2-10 mLJump to med 2-10 mL, intravenous, As needed, line ca re, Starting on Wed12/12/21 at 1817 documented in this encounter Additional Health Concerns Infection Onset Date Last Indicated Resolved Time COVID19 Pending 12/12/2021 12/12/2021 12/12/2021 7:24 PM STAFF RADIOLOGIST COVID19 12/12/2021 12/12/2021 01/01/2022 6:55 AM STAFF RADIOLOGIST Assessment Noted Time PHQ-9 Depression Total Score: 15 06/06/2019 10:09 AM C DT documented as of this encounter Care Teams Information Assurance Officer Relationship Specialty Start Date End Date Julian Santana M.D. PCP - General 05/13/17 PADMAJA William [phone] documented as of this encounter
--- OUTSIDE RECORDS SUMMARY | 2022-09-25 11:00 | XMS_ITS | Encounter Summary ---
:1990 Author Organization [facility] Address [address] [place] [address] Care Team Providers Name Role Phone Julian Santana M.D. Primary Care Provider Reason for Visit Reason Onset Date Comments Outpatient COVID-19 Testing 10/18/2020 Encounter Details Date Type Department Care Team Description 10/18/2020 External Outreach Department of [facility] Tiara Olson Infection Upper Medicine, [place] Yaya Paula Respiratory (Primary Clinic, in [place], [address] Dx) [place], [place] [address] [address] [place], [place] [phone] (Work) [phone] Social History Tobacco Use Types Packs/Day Years [...] documented as of this encounter Progress Notes China Avitia R.N. - 10/18/2020 9:30 AM CST Encounter created for the drive-through COVID-19 testing. 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 documented in this encounter Results SARS Coronavirus-2 RNA, V Symptomatic (10/18/2020 10:38 AM RETURNED GOODS REPAIRER) [facility] Method Time Signature SARS-CoV-2 Swab, 10/19/2020 ECLR Specimen Nasopharynx 8:38 PM RETURNED GOODS REPAIRER Source SARS CoV-2 Undetected Undetected 10/19/2020 ECLR RNA, TMA 8:38 PM RETURNED GOODS REPAIRER Comment: SARS-CoV-2 RNA absent. This result does not rule out COVID-19 in the patient, as the sensitivity of the test depends o n the timing of the specimen collection and the quality of the specim en. Result should be correlated with patient's history and clinical presentat ion. ----ADDITIONAL INFORMATION---- This test is performed using the Aptima SARS-CoV-2 assay ([employer] which has received Emergency Use Authori zation (EUA) by the U.S. Food and Drug Administration. Fact sheets for this Emergency Use Autho rization (EUA) assay can be found at the following links: For Healthcare Providers: https://www.fd a.gov/media/840265/download For Patients: https://www.fda.gov/media/ 762497/download Specimen Anatomical Collection Method Collection Time Receive d Time (Source) Location / / Volume Laterality Varies 10/18/2020 10:38 10/18/2020 9:28 (Nasopharynx) AM RETURNED GOODS REPAIRER PM RETURNED GOODS REPAIRER Julian Olson P.A.-C. LAB MICROBIOLOGY - GENERAL O RDERABLES Performing Organization Address City/State/ZIP Code Phon e Number [facility]- [address] [place] [address] [address] [place] [address] [address] documented in this encounter Visit Diagnoses Diagnosis Infection Upper Respiratory - Primary documented in this encounter Additional Health Concerns Infection Onset Date Last Indicated Resolved Time COVID19 Pending 10/16/2020 10/17/2020 10/19/2020 8:38 PM RETURNED GOODS REPAIRER Assessment Noted Time PHQ-9 Depression Total Score: 15 06/06/2019 10:09 AM C DT documented as of this encounter Care Teams Licensed Psychologist Director Relationship Specialty Start Date End Date Julian Santana M.D. PCP - General 05/13/17 [address] [place] [phone] documented as of this encounter
--- OUTSIDE RECORDS SUMMARY | 2022-09-25 11:01 | XMS_ITS | Encounter Summary ---
:1990 Author Organization [facility] Address [address] [place] [address] Care Team Providers Name Role Phone Julian Santana M.D. Primary Care Provider Reason for Visit Reason Comments Med Refill Encounter Details Date Type Department Care Team Description 02/10/2019 Refill Department of Family Medicine, Julian Erazo M.D. Med Refill [facility], in [facility] [address] [place] [address] [address] [facility] [place] [address] [phone] Social History Tobacco Use Types Packs/Day Years Used Date Smoking Tobacco: Every Day Cigarettes 1 Smokeless Tobacco: Never Alcohol Use Standard Drinks/Week Comments Yes 1 (1 standard drink = 0.6 oz pure alcoho l) daily Alcohol Habits Answer Date Recorded How often [...] encounter Miscellaneous Notes Telephone Encounter - Monster Banerjee M.D. - 02/10/2019 5:38 PM CDT Prescription approved. Telephone Encounter - Amarilis Lopez - 02/10/2019 10:55 AM CDT Nurse Review: Pharmacy Communication Provider: Julian Santana M.D. Medication: Risperidone Strength: 1 MG tablet Frequency: Take 1 tablet by mouth once daily at bedtime. OK to titrate up to 3 MG at bedtime Pharmacy: [facility] Comment: Insurance will pay for max 2 tablets every day. Can we have another script for 3 MG? Thank you. documented in this encounter Plan of Treatment Not on filedocumented as of this encounter Visit Diagnoses Diagnosis Bipolar I Disorder (HCC) documented in this encounter Additional Health Concerns Assessment Noted Time PHQ-9 Depression Total Score: 25 02/08/2019 2:45 PM CD T documented as of this encounter Care Teams Multimedia Developer Relationship Specialty Start Date End Date Julian Santana M.D. PCP - General 05/13/17 [address] [facility] [place] [phone] documented as of this encounter
--- OUTSIDE RECORDS SUMMARY | 2022-09-25 11:01 | XMS_ITS | Encounter Summary ---
:1990 Author Organization [facility] Address [address] [place] [address] Care Team Providers Name Role Phone Julian Santana M.D. Primary Care Provider Reason for Visit Reason Comments Dizziness Intermittent dizziness for 3 days, does not remember events from yesterday 03/01, increased sleepiness; D id start some new medications recently Encounter Details Date Type Department Care Team Description 03/02/2019 Emergency [place] [facility] Brian Escobedo dedness (Primary Dx); Department (Skip) III, Reaction Drug Adverse Initia l; [address] JANIS MORRIS M.D., M.P.H. Bradycardia; [place], [place] [address] Hypotension; [phone] [place] Dehydration [phone] Social History Tobacco Use Types Packs/Day Years Used Date Smoking Tobacco: Every Day Cigarettes 1 Smokeless Tobacco: Never Alcohol Use Standard Drinks/Week Comments Yes 0 (1 standard drink = 0.6 oz pure alcoho l) Not recently Alcohol Habits Answer Date Recorded How often [...] Sign Reading Time Taken Comments Blood Pressure 120/68 03/02/2019 12:12 PM CDT Pulse 124 03/02/2019 12:12 PM CDT Temperature 36.4 ??C (97.5 ??F) 03/02/2019 9:20 AM CDT Respiratory Rate 16 03/02/2019 12:12 PM CDT Oxygen Saturation 98% 03/02/2019 12:12 PM CDT Inhaled Oxygen Concentration - - Weight 83.4 kg (183 lb 13.8 oz) 03/02/2019 9:21 AM CDT Height 180.3 cm (5' 11) 03/02/2019 9:21 AM CDT Body Mass Index 25.64 03/02/2019 9:21 AM CDT documented in this encounter Medications at Time of Discharge Medication Sig Dispensed Refills Start Date End Date omeprazole (PriLOSEC) 20 Take 1 capsule (20 30 capsule 11 01/14/[address] capsule mg total) by mouth every morning before breakfast. buPROPion XL (WELLBUTRIN Take 1 tablet (150 30 tablet 11 05/05/2019 XL) 150 mg 24 hr mg total) by mouth tabletIndications: every morning. Bipolar Disorder Current Episode Depressed Severe Without Psychotic Features (HCC) risperiDONE (RisperDAL) Take 1 tablet (3 mg 30 tablet 0 05/02/2019 3 mg tablet total) by mouth at bedtime. documented as of this encounter ED Notes Brian Escobedo III, M.D. (Skip), M.P.H. - 03/02/2019 9:32 AM CDT SUBJECTIVE CHIEF COMPLAINT/REASON FOR VISIT Dizziness (Intermittent dizziness for 3 days, does not remember events from yesterday 03/01, increasedsleepiness; Did start some new medications recently) HISTORY OF PRESENT ILLNESS 28 year old male with a history of polysubstance dependence and bipolar I presents to the Emergency Department with his mother for evaluation of dizziness. The patient's mother explains that the patient was recently started on Depakote and Wellbutrin about 4 days ago. Over the last three days his mother states that he has been more fatigued than normal and has had a poor memory. She expands on his memory loss stating that the patient was working on his car for the last couple of days but had told her that he didn't remember working on it and didn't remember what he had done over the last two days. His mother checked his pulse and oxygen saturations at home and found them to be 57 and 87% respectively. Here at the ED the patient states that he has been feeling short of breath for the last couple of days although his saturations here are 99%. He states that he has been experiencing dizziness with position size changer the last couple of days. He is alert, oriented and has no other complaints at this time. The patient's past medical history has been reviewed in the EMR and included in the HPI. History provided by: Patient and parent living manager needed/used: no REVIEW OF SYSTEMS Constitutional: Positive for fatigue. Respiratory: Positive for shortness of breath. Neurological: Positive for dizziness. Psychiatric/Behavioral: Positive for confusion. OBJECTIVE Initial Vitals [03/02/19 0920] Temperature Pulse Rate Heart Rate Resp Rate Blood Pressure SpO2 36.4 ??C 99 -- 16 117/70 100 % Pain Score -- PHYSICAL EXAMINATION HENT: Head: Normocephalic and atraumatic. Eyes: EOM are normal. Pupils are equal, round, and reactive to light. Neck: Normal range of motion. Neck supple. Pulmonary/Chest: Effort normal. No respiratory distress. Musculoskeletal: Normal range of motion. He exhibits no edema. Neurological: He is alert and oriented to person, place, and time. He has normal strength and intactcranial nerves. No cranial nerve deficit. Normal speech. Coordination normal. Skin: Skin is warm and dry. Psychiatric: He has a normal mood and affect. Thought content normal. He is slowed. Nursing note and vitals reviewed. ASSESSMENT/PLAN Impression and Plan Life threatening differential diagnosis considered include: CVA. Other differential diagnoses include: BPPV, labyrinthitis, M??ni??re's disease, vestibular neuritis, migraine, Multiple Sclerosis, Otitis media, viral syndrome as well as other etiologies. Depakote dosing may have triggered symptoms. Dr. Londono consulted. He recommends orthostatics and discontinue depakote until the patient is seen and evaluated in his clinic. Patient demonstrates tachycardia when standing, so dehydration is also likely. Patient is comfortable returning home.. I personally reviewed the lab result(s) and my interpretation is: Abnormal with the following comments: THC, amphetamines, benzos on UDS.. ECG results: normal ECG Final Diagnoses: as of Mar 02 1224 Lightheadedness Reaction Drug Adverse Initial Bradycardia Hypotension Dehydration I personally performed the services described in this documentation, as scribed in my presence, and it is both accurate and complete. Brian Escobedo III, M.D. (Skip), M.P.H. 03/02/19 1226 Brian Escobedo III, M.D. (Skip), M.P.H. 03/09/192052 documented in this encounter Plan of Treatment Not on filedocumented as of this encounter Procedures Procedure Name Priority Date/Time Associated Diagnosis Comme nts DRUG SCREEN URINE STAT 03/02/2019 11:06 AM Res ults for this CDT procedure are i n the results section. ECG STAT 03/02/2019 9:52 AM Results f or this CDT procedure are i n the results section. CBC WITH STAT 03/02/2019 9:42 AM Results f or this DIFFERENTIAL, B CDT procedure ar e in the results section. BASIC METABOLIC STAT 03/02/2019 9:42 AM Result s for this PANEL, S/P CDT procedure are i n the results section. documented in this encounter Results (ABNORMAL) Drug Screen Urine (03/02/2019 11:06 AM CDT) [facility] Method Time Signature Amphetamines, Unconfirmed Negative 03/02/2019 [facility] U Positive (A) 11:22 AM [employer] CDT [facility] Comment: ----ADDITIONAL INFORMATION---- Unit Controller's Cutoff: 500 ng/mL Barbiturates, U Negative Negative 03/02/2019 11:22 AM CDT [facility] Comment: ----ADDITIONAL INFORMATION---- Unit Controller's Cutoff: 200 ng/mL Benzodiazepines, U Unconfirmed Positive Negative 03/02/2019 11:22 [facility] (A) AM better.T [employer] [facility] Comment: ----ADDITIONAL INFORMATION---- Unit Controller's Cutoff: 150 ng/mL Buprenorphine, U Negative Negative 03/02/2019 11:22 AM CDT [facility] Comment: ----ADDITIONAL INFORMATION---- Unit Controller's Cutoff: 10 ng/mL Cocaine, U Negative Negative 03/02/2019 11:22 AM CDT [facility] [place] Comment: ----ADDITIONAL INFORMATION---- Unit Controller's Cutoff: 150 ng/mL Methadone, U Negative Negative 03/02/2019 11:22 AM CDT [facility] Comment: ----ADDITIONAL INFORMATION---- Unit Controller's Cutoff: 200 ng/mL Methamphetamines, U Negative Negative 03/02/2019 11:22 AM T [facility] Comment: ----ADDITIONAL INFORMATION---- Unit Controller's Cutoff: 500 ng/mL Opiates, U Negative Negative 03/02/2019 11:22 AM CDT [facility] Comment: ----ADDITIONAL INFORMATION---- Unit Controller's Cutoff: 100 ng/mL Oxycodone, U Negative Negative 03/02/2019 11:22 AM T [facility] Comment: ----ADDITIONAL INFORMATION---- Unit Controller's Cutoff: 100 ng/mL Phencyclidine, U Negative Negative 03/02/2019 11:22 AM T [facility] Comment: ----ADDITIONAL INFORMATION---- Unit Controller's Cutoff: 25 ng/mL Propoxyphene, U Negative Negative 03/02/2019 11:22 AM T [facility] Comment: ----ADDITIONAL INFORMATION---- Unit Controller's Cutoff: 300 ng/mL Tetrahydrocannabinol, U Unconfirmed Negative 03/02/2019 11: 22 [facility] Positive (A) AM [facility] Comment: ----ADDITIONAL INFORMATION---- Unit Controller's Cutoff: 50 ng/mL Tricyclic Antidepressants, Negative Negative 03/02/2019 11 :22 AM [facility] U [facility] Comment: ----ADDITIONAL INFORMATION---- Unit Controller's Cutoff: 300 ng/mL THE ABOVE DRUG SCREEN PANEL IS FOR MED ICAL PURPOSES ONLY Specimen Anatomical Collection Method Collection Time Receive d Time (Source) Location / / Volume Laterality Urine (Urine, 03/02/2019 11:06 03/02/2019 Clean Catch) AM CDT 11:09 AM CDT Brian Escobedo III, M.D. (Skip), M.P.H. LAB URINE ORDERA [facility] Organization Address City/State/ZIP Code Phon e Number [facility] [address] [place] [address] [facility] ECG 12 Lead (03/02/2019 9:52 AM CDT) P athologist Signature Ventricular Rate 97 BPM MUSE ECG/Min ME Interval 126 ms MUSE QRSD Interval 94 ms MUSE QT Interval 328 ms MUSE QTC Interval 416 ms MUSE P [place] 70 degrees MUSE R [place] 69 degrees MUSE T Wave [place] 55 degrees MUSE Specimen Anatomical Collection Method Collection Time Receive d Time (Source) Location / / Volume Laterality 03/02/2019 9:52 AM 9 CDT 10:06 AM CDT Impressions MUSE - 03/02/2019 10:06 AM CDT Normal sinus rhythm Minimal voltage criteria for LVH, may be normal variant When compared with ECG of 28-APR-2018 02 :39, No significant change was found Narrative This result has an attachment that is no t available. Procedure Note Cristian Yee M.B.B.S. - 019 IMPRESSION: Normal sinus rhythm Minimal voltage criteria for LVH, may be normal variant When compared with ECG of 28-APR-2018 02 :39, No significant change was found Brian (Skip) Gregg GOMEZ M.D., M.P.H. ECG ORDERABLES Performing Organization Address City/State/ZIP Code Phon e Number MUSE MUSE NA (ABNORMAL) Basic Metabolic Panel (03/02/2019 9:42 AM CDT) athologist Signature Potassium, P CANCELED mmol/L 03/02/2019 [facility] 10:33 AM [facility] Comment: Hemolyzed Result canceled by the ancillary Sodium, P 137 135 - 145 mmol/L 03/02/2019 10:19 AM [facility] Chloride, P 103 98 - 107 mmol/L 03/02/2019 10:19 AM [facility] Bicarbonate, P 28 22 - 29 mmol/L 03/02/2019 10:19 AM [facility] Anion Gap, P 6 (L) 7 - 15 03/02/2019 10:19 AM [facility] BUN (Blood Urea 13 8 - 24 mg/dL 03/02/2019 10:19 AM [facility] Nitrogen), P [facility] Creatinine 0.99 0.74 - 1.35 mg/dL 03/02/2019 10:19 AM [facility] eGFR-Black/ >90 >=60 mL/min/BSA 03/02/2019 10:1 9 AM [facility] Comment: ----ADDITIONAL INFORMATION---- Estimated GFR calculated using the 2009 CKD_EPI creatinine equation. eGFR Non-Black/ >90 >=60 mL/min/BSA 03/02/2019 10:19 AM [facility] Comment: ----ADDITIONAL INFORMATION---- Estimated GFR calculated using the 2009 CKD_EPI creatinine equation. Calcium, Total, P 9.0 8.6 - 10.0 mg/dL 03/02/2019 1 0:19 AM [facility] Glucose, P 79 70 - 140 mg/dL 03/02/2019 10:19 AM [facility] Specimen Anatomical Collection Method Collection Time Receive d Time (Source) Location / / Volume Laterality Blood (Blood, 03/02/2019 9:42 AM 03/02/20 19 9:50 Venous) CDT AM CDT Brian (Skip) Gregg GOMEZ M.D., M.P.H. LAB BLOOD ADD-ON Performing Organization Address City/State/ZIP Code Phon e Number [facility] [address] [place] [address] [place] [facility] (ABNORMAL) CBC with Differential, Blood (03/02/2019 9:42 AM CDT) [facility] Method Time Signature Hemoglobin 15.2 13.2 - 03/02/2019 [facility] 16.6 g/dL 10:04 AM [facility] Hematocrit 45.5 38.3 - 03/02/2019 [facility] 48.6 % 10:04 AM [facility] Erythrocytes 4.98 4.35 - 03/02/2019 [facility] 5.65 10:04 AM CDT HEALTH x10(12)/L [facility] [place] MCV 91.4 78.2 - 03/02/2019 [facility] 97.9 fL 10:04 AM T [facility] [place] [facility] RBC Distrib Width 12.1 11.8 - 03/02/2019 [facility] 14.5 % 10:04 AM T [facility] Platelet Count 189 135 - 317 03/02/2019 [facility] x10(9)/L 10:04 AM T [facility] Leukocytes 8.5 3.4 - 9.6 03/02/2019 [facility] x10(9)/L 10:04 AM [facility] Neutrophils 6.62 (H) 1.56 - 03/02/2019 [facility] 6.45 10:04 AM CDT HEALTH x10(9)/L [facility] [place] [facility] Lymphocytes 1.18 0.95 - 03/02/2019 [facility] 3.07 10:04 AM CDT [facility] x10(9)/L [facility] [place] [facility] Monocytes 0.55 0.26 - 03/02/2019 [facility] 0.81 10:04 AM CDT [facility] x10(9)/L [facility] Eosinophils 0.12 0.03 - 03/02/2019 [facility] 0.48 10:04 AM CDT HEALTH x10(9)/L [facility] [place] [facility] Basophils 0.06 0.01 - 03/02/2019 [facility] 0.08 10:04 AM CDT [facility] x10(9)/L [facility] Specimen Anatomical Collection Method Collection Time Receive d Time (Source) Location / / Volume Laterality Blood (Blood, 03/02/2019 9:42 AM 03/02/20 19 9:50 Venous) CDT AM CDT Brian (Skip) Gregg GOMEZ M.D., M.P.H. LAB BLOOD ADD-ON Performing Organization Address City/State/ZIP Code Phon e Number [facility] [address] [place] [address] [facility] documented in this encounter Visit Diagnoses Diagnosis Lightheadedness - Primary Reaction Drug Adverse Initial Bradycardia Hypotension Dehydration documented in this encounter Administered Medications Inactive Administered Medications - up to 3 most recent administrations Medication Order MAR Action Action Date Dose Rate Site NaCl 0.9 % bolus 1,000 mL New Bag 03/02/2019 9:49 AM CDT 1,000 mL 2000 mL/hr 1,000 mL, intravenous, at 2,000 mL/hr, Administer over 30 Minutes, Once, On Bhumi 03/02/19 at 0936, For 1 dose, FOR HYDRATION documented in this encounter Active and Recently Administered Medications Times are shown in CDT. Scheduled Medication Order 02/28/2019 03/01/2019 03/02/2019 NaCl 0.9 % bolus 1,000 mL (COMPLETED) 0949 (New Bag - Provider: Chelsea Rodriguez R.N.)1020 (Stopped - Provider: Chelsea Rodriguez R.N.) 1,000 mL, intravenous, at 2,000 mL/hr, A dminister over 30 Minutes, Once, Bhumi 03/02/19 at 0936, For 1 dose, FOR HYDRATION documented in this encounter Additional Health Concerns Assessment Noted Time PHQ-9 Depression Total Score: 27 02/23/2019 3:12 PM CD T documented as of this encounter Care Teams Software Reverse Engineer Relationship Specialty Start Date End Date Julian Santana M.D. PCP - General 05/13/17 PADMAJA William [phone] documented as of this encounter
--- OUTSIDE RECORDS SUMMARY | 2022-09-25 11:01 | XMS_ITS | Encounter Summary ---
:1990 Author Organization [facility] Address [address] [place] [address] Care Team Providers Name Role Phone Julian Santana M.D. Primary Care Provider Reason for Visit Reason Comments Follow-up Outpatient (Routine) - Closed Specialty Diagnoses / Referred By Contact Referred To Procedures Contact Gastroenterology and Regan Juan [facility] Hepatology Andrew [address] [place] [phone] Referral ID Status Reason Start Date Expiration Date Visits Requ ested Visits Authorized [id number] Closed 05/10/2019 05/09/2020 1 1 Encounter Details Date Type Department Care Team Description 05/25/2019 Office Visit Department of Regan Juan In [facility] (Primary Dx); Gastroenterology in Marty Reardon M.D. Ulcer Intestine; [address] Dependence Polysubstance (HCC); [address] [place] [address] [place] [phone] Social History Tobacco Use Types Packs/Day [...] Sign Reading Time Taken Comments Blood Pressure 104/54 05/25/2019 11:57 AM CDT Pulse 72 05/25/2019 11:57 AM CDT Temperature - - Respiratory Rate - - Oxygen Saturation - - Inhaled Oxygen Concentration - - Weight 85.6 kg (188 lb 11.4 oz) 05/25/2019 11:57 AM CDT Height 180.3 cm (5' 10.98) 05/25/2019 11:57 AM CDT Body Mass Index 26.33 05/25/2019 11:57 AM CDT documented in this encounter Patient Instructions Patient InstructionsRegan Juan M.D. - 05/25/2019 11:40 AM CDT Try Tylenol instead of ibuprofen to help those ulcers in the small bowel. documented in this encounter Progress Notes Regan Juan M.D. - 05/25/2019 11:40 AM CDT SUBJECTIVE CHIEF COMPLAINT/REASON FOR VISIT Follow-up upper endoscopy and colonoscopy HISTORY OF PRESENT ILLNESS This is a 28-year-old male who has had difficulty with rectal bleeding with bright red blood as wellas intermittent vomiting with hematemesis. He had an EGD and colonoscopy done on May 10. The EGD was entirely normal including biopsies for Helicobacter pylori. His colonoscopy did show acute terminalileal ulcers without evidence of chronicity on biopsies. His colon was normal. We reviewed the pictures of both EGD and colonoscopy. We discussed about his ileal ulcers. This certainly could explain his intermittent abdominal pain and possibly his bleeding. There is no evidence of granulomas or chronicity on the pathology, making Crohn's unlikely. The patient does take ibuprofenquite frequently, often up to 3 times a day. Patient has been much better about his polysubstance abuse, although he does continue to smoke marijuana. ASSESSMENT / PLAN 1. Ileal ulcer secondary to NSAID use 2. Rectal bleeding 3. Hematemesis 4. Marijuana use Patient is doing somewhat better. It is encouraging that his hemoglobin is 15.3 despite his bleeding. Therefore, the bleeding that is seen is most likely anal in origin. Ileal ulcers could bleed, but Iwould expect a large drop in his hemoglobin if he were seeing red blood. Regardless, he is taking ibuprofen in this is the most likely risk factor for his ileal ulcers. There was no evidence of chronicity, and thus, Crohn's disease is quite unlikely. Patient will stop his ibuprofen use and take Tylenol instead. We discussed about his marijuana use and vomiting. He is likely having some hematemesis just with the force of vomiting. We discussed hyperemesis cannabis syndrome fortunately, he has not had severe vomiting episodes. Encouraged him to stop. His mother also send they will work on this. He is followingwith Dr. Londono coming up. I spent 25 minutes with patient, 20 minutes spent counseling and coordination care. Patient will follow up with the GI clinic as needed documented in this encounter Plan of Treatment Not on filedocumented as of this encounter Visit Diagnoses Diagnosis Blood In Stool - Primary Ulcer Intestine Dependence Polysubstance (HCC) Vomiting Persistent documented in this encounter Additional Health Concerns Assessment Noted Time PHQ-9 Depression Total Score: 27 02/23/2019 3:12 PM CD T documented as of this encounter Care Teams Compensation Administrator Relationship Specialty Start Date End Date Julian Santana M.D. PCP - General 05/13/17 [place] [phone] documented as of this encounter
--- OUTSIDE RECORDS SUMMARY | 2022-09-25 11:01 | XMS_ITS | Encounter Summary ---
:1990 Author Organization [facility] Address [address] [place] [address] Care Team Providers Name Role Phone Julian Santana M.D. Primary Care Provider Reason for Visit Reason Comments Abdominal Pain epigastric pain and vomittin g off and on for ONE YEAR. worse today stating he is throwing up bl ood. Last vomited at 9am. Was drinking a shake on arrival to ER. Pt olvin monahan he was suppose to hav EGD last Wednesday and missed the marely ointment Encounter Details Date Type Department Care Team Description 03/05/2019 Emergency [place] [facility] Dana Aburto Abd ominal Pain (Primary Dx); Department Andrew Mane Nausea And Vomiting [address] [place] [address] Social History Tobacco Use Types Packs/Day [...] Sign Reading Time Taken Comments Blood Pressure 104/63 03/05/2019 1:29 PM CDT Pulse 99 03/05/2019 1:29 PM CDT Temperature 36.5 ??C (97.7 ??F) 03/05/2019 1:29 PM CDT Respiratory Rate 16 03/05/2019 1:29 PM CDT Oxygen Saturation 98% 03/05/2019 1:29 PM CDT Inhaled Oxygen Concentration - - Weight 85.4 kg (188 lb 4.4 oz) 03/05/2019 1:30 PM CDT Height 180.3 cm (5' 11) 03/05/2019 1:30 PM CDT Body Mass Index 26.26 03/05/2019 1:30 PM CDT documented in this encounter Discharge Instructions Discharge InstructionsDana Aburto M.D. - 03/05/2019 2:41 PM CDT Please call your milk runner tomorrow to set up a new appointment for your procedure. Please follow up with your primary doctor listed above. If you develop fever, vomiting, rash, fainting, bleeding, or any other concerning symptoms, please return to the ER. AttachmentsThe following attachments cannot be sent through Care Everywhere. Nausea and Vomiting Adult (Syriac)documented in this encounter Medications at Time of [...] documented as of this encounter ED Notes Dana Aburto M.D. - 03/05/2019 2:32 PM CDT SUBJECTIVE CHIEF COMPLAINT/REASON FOR VISIT Abdominal Pain (epigastric pain and vomitting off and on for ONE YEAR. worse today stating he is throwing up blood. Last vomited at 9am. Was drinking a shake on arrival to ER. Pt states he was suppose to hav EGD last Wednesday and missed the appointment) HISTORY OF PRESENT ILLNESS One year history of GI symptoms including intermittent brb per rectum as well as what he describes as melena. None recently. Also, emesis several times a week, sometimes with scant blood. Denies alcohol for several weeks. 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 Lost his omeprazole so hasn'ttaken this recently. No fever. No weight loss. No diarrhea. Was scheduled for upper and lower endoscopy 3 days ago but did not go in for family reasons. He came in today because he doesn't know who else to go to. REVIEW OF SYSTEMS Constitutional: Negative for fever. Gastrointestinal: Positive for blood in stool. Genitourinary: Negative for dysuria. All other systems reviewed and are negative. OBJECTIVE Initial Vitals [03/05/19 1329] Temperature Pulse Rate Heart Rate Resp Rate Blood Pressure SpO2 36.5 ??C 99 -- 16 104/63 98 % Pain Score 8 PHYSICAL EXAMINATION Constitutional: He appears well-developed and well-nourished. He appears not lethargic. No distress. HENT: Head: Atraumatic. Mouth/Throat: Oropharynx is clear and moist. Mucous membranes are moist. Eyes: EOM are normal. Pupils are equal, round, and reactive to light. Neck: No tracheal deviation present. Cardiovascular: Normal rate and regular rhythm. Capillary refill: takes less than 3 seconds, Pulmonary/Chest: Effort normal and breath sounds normal. There is normal air entry. No respiratory distress. Abdominal: Soft. Bowel sounds are normal. There is no tenderness. There is no rebound and no guarding. Genitourinary: Penis normal. Musculoskeletal: He exhibits no tenderness. Neurological: He is alert and oriented to person, place, and time. Skin: Skin is warm and dry. He is not diaphoretic. Psychiatric: He has a normal mood and affect. Slightly anxious Nursing note and vitals reviewed. ASSESSMENT/PLAN Impression and Plan Well-appearing patient with chronic GI symptoms which include intermittent dyspepsia, intermittent rectal bleeding, intermittent emesis sometimes with scant blood. This is a been going on for 6 months to 1 year. No weight loss, no fever, no night sweats or any other systemic symptoms. He had an appointment for upper and lower GI endoscopy a few days ago was not able to go. Came in today because he did not know where else to go. Throughout ED stay patient looks well, in no acute distress, stable hemodynamically, nontoxic, afebrile, alert, neuro intact. Slightly anxious but without any apparent toxidrome or withdrawal syndrome. I spoke at length with him about the importance of a PMD for coordination of care. And the importance of keeping his appointments with specialists, especially GI. Hemoglobin was 15 today stable from previous visits. He understands strict return precautions. Questions wereanswered.. Final Diagnoses: as of Mar 05 1442 Abdominal Pain Nausea And Vomiting Dana Aburto M.D. 03/05/191926 documented in this encounter Plan of Treatment Not on filedocumented as of this encounter Procedures Procedure Name Priority Date/Time Associated Diagnosis Comme nts CBC WITH STAT 03/05/2019 2:06 PM Results f or this DIFFERENTIAL, B CDT procedure ar e in the results section. BASIC METABOLIC STAT 03/05/2019 2:06 PM Result s for this PANEL, S/P CDT procedure are i n the results section. documented in this encounter Results Basic Metabolic Panel (03/05/2019 2:06 PM CDT) P athologist Signature Potassium, P 4.3 3.6 - 5.2 03/05/2019 [facility] mmol/L 2:27 PM CDT [facility] Sodium, P 138 135 - 145 03/05/2019 [facility] mmol/L 2:27 PM CDT [facility] Chloride, P 102 98 - 107 03/05/2019 [facility] mmol/L 2:27 PM CDT [facility] Bicarbonate, P 27 22 - 29 03/05/2019 [facility] mmol/L 2:27 PM CDT [facility] Anion Gap, P 9 7 - 15 03/05/2019 [facility] 2:27 PM CDT [facility] BUN (Blood Urea 11 8 - 24 03/05/2019 [facility] Nitrogen), P mg/dL 2:27 PM CDT [facility] Creatinine 0.86 0.74 - 03/05/2019 [facility] 1.35 mg/dL 2:27 PM CDT [facility] eGFR-Black/Afri >90 >=60 03/05/2019 [facility] can Northern Irish mL/min/BSA 2:27 PM CDT [facility] Comment: ----ADDITIONAL INFORMATION---- Estimated GFR calculated using the 2009 CKD_EPI creatinine equation. eGFR Non-Black/ >90 >=60 mL/min/BSA 03/05/2019 2:27 PM [facility] Northern Irish [facility] Comment: ----ADDITIONAL INFORMATION---- Estimated GFR calculated using the 2009 CKD_EPI creatinine equation. Calcium, Total, P 9.2 8.6 - 10.0 mg/dL 03/05/2019 2 :27 PM CDT [facility] Glucose, P 103 70 - 140 mg/dL 03/05/2019 2:27 PM CDT [facility] Index LAB Specimen Anatomical Collection Method Collection Time Receive d Time (Source) Location / / Volume Laterality Blood (Blood, 03/05/2019 2:06 PM 03/05/20 19 2:08 Venous) CDT PM CDT Dana Aburto M.D. LAB BLOOD ADD-ON Performing Organization Address City/State/ZIP Code Phon e Number [facility] [address] [place] [address] [place] [place] [facility] (ABNORMAL) CBC with Differential, Blood (03/05/2019 2:06 PM CDT) [facility] Method Time Signature Hemoglobin 15.3 13.2 - 03/05/2019 [facility] 16.6 g/dL 2:11 PM T [facility] Index LAB Hematocrit 45.9 38.3 - 03/05/2019 [facility] 48.6 % 2:11 PM [facility] Index LAB Erythrocytes 5.10 4.35 - 03/05/2019 [facility] 5.65 2:11 PM CDT HEALTH x10(12)/L [facility] Index LAB MCV 90.0 78.2 - 03/05/2019 [facility] 97.9 fL 2:11 PM [facility] Index LAB RBC Distrib Width 12.1 11.8 - 03/05/2019 [facility] 14.5 % 2:11 PM T [facility] Index LAB Platelet Count 245 135 - 317 03/05/2019 [facility] x10(9)/L 2:[address] [facility] Leukocytes 11.7 (H) 3.4 - 9.6 03/05/2019 [facility] x10(9)/L 2:11 PM CDT [facility] Neutrophils 8.69 (H) 1.56 - 03/05/2019 [facility] 6.45 2:11 PM CDT [facility] x10(9)/L [facility] [place] [facility] Lymphocytes 1.95 0.95 - 03/05/2019 [facility] 3.07 2:11 PM CDT [facility] x10(9)/L [facility] [place] [facility] Monocytes 0.82 (H) 0.26 - 03/05/2019 [facility] 0.81 2:11 PM CDT [facility] x10(9)/L [facility] [place] [facility] Eosinophils 0.22 0.03 - 03/05/2019 [facility] 0.48 2:11 PM CDT [facility] x10(9)/L [facility] [place] [facility] Basophils 0.06 0.01 - 03/05/2019 [facility] 0.08 2:11 PM CDT [facility] x10(9)/L [facility] [place] [facility] Specimen Anatomical Collection Method Collection Time Receive d Time (Source) Location / / Volume Laterality Blood (Blood, 03/05/2019 2:06 PM 03/05/20 19 2:08 Venous) CDT PM CDT Dana Aburto M.D. LAB BLOOD ADD-ON Performing Organization Address City/State/ZIP Code Phon e Number [facility] [address] [facility] [place] [address] [facility] [place] documented in this encounter Visit Diagnoses Diagnosis Abdominal Pain - Primary Nausea And Vomiting documented in this encounter Active and Recently Administered Medications Times are shown in CDT. Scheduled Medication Order 03/03/2019 03/04/2019 03/05/2019 alum-mag hydroxide-simeth 200-200-20 mg/5 mL suspension 30 mL (M AALOX) 1446 (Not Given - Provider: Hilda Howard R.N. - Reason: Patient not available) 30 mL, oral, Once, 03/05/19 at 1443, For 1 dose documented in this encounter Additional Health Concerns Assessment Noted Time PHQ-9 Depression Total Score: 27 02/23/2019 3:12 PM CD T documented as of this encounter Care Teams Rafter Cutting Machine Operator Relationship Specialty Start Date End Date Julian Santana M.D. PCP - General 05/13/17 [address] [place] [address] documented as of this encounter
--- OUTSIDE RECORDS SUMMARY | 2022-09-25 11:01 | XMS_ITS | Encounter Summary ---
:1990 Author Organization [facility] Address [address] [place] [address] Care Team Providers Name Role Phone Julian Santana M.D. Primary Care Provider Encounter Details Date Type Department Care Team Description 02/15/2019 Orders Only [facility] - Julian Gutierrez M.D. [address] [facility] [address] [place] [address] [place] [address] (Wo rk) Social History Tobacco Use Types [...] documented as of this encounter Care Teams Hemp Fiber Taker Off Relationship Specialty Start Date End Date Julian Santana M.D. PCP - General 05/13/17 [address] [place] [address] documented as of this encounter
--- OUTSIDE RECORDS SUMMARY | 2022-09-25 11:01 | XMS_ITS | Encounter Summary ---
:1990 Author Organization [facility] Address [address] [place] [address] Care Team Providers Name Role Phone Julian Santana M.D. Primary Care Provider Reason for Visit Reason Comments Dental Pain Left jaw pain that started h urting a couple of weeks ago. Broke a tooth about 6 months ago and is sc heduled to have tooth removed next week. Denies fever or chills. Encounter Details Date Type Department Care Team Description 07/15/2019 Emergency [facility] Viet Aguirre Tootha che (Primary Dx); Department M.D. Cracked Tooth [address] [facility] [address] [place] [address] [place], [place] [phone] [address] Social History Tobacco Use Types Packs/Day [...] Sign Reading Time Taken Comments Blood Pressure 113/70 07/15/2019 1:15 AM CDT Pulse 58 07/15/2019 1:15 AM CDT Temperature 36.7 ??C (98.1 ??F) 07/15/2019 12:35 AM CDT Respiratory Rate - - Oxygen Saturation 96% 07/15/2019 1:15 AM CDT Inhaled Oxygen Concentration - - Weight 87.4 kg (192 lb 10.9 oz) 07/15/2019 12:43 AM CDT Height - - Body Mass Index 26.89 05/25/2019 11:57 AM CDT documented in this encounter Discharge Instructions AttachmentsThe following attachments cannot be sent through Care Everywhere. Dental Care and Dentist Visits (Chinese)documented in this encounter Medications at Time of [...] risperiDONE (RisperDAL) 3 Take 1 tablet (3 90 tablet 1 03/201911/16/2019 mg tabletIndications: mg total) by mouth Bipolar I Disorder (HCC) at bedtime. documented as of this encounter ED Notes Viet Aguirre M.D. - 07/15/2019 1:15 AM CDT Images from the original note were not included. SUBJECTIVE CHIEF COMPLAINT/REASON FOR VISIT Dental Pain (Left jaw pain that started hurting a couple of weeks ago. Broke a tooth about 6 months ago and is scheduled to have tooth removed next week. Denies fever or chills.) HISTORY OF PRESENT ILLNESS 28-year-old gentleman who presents with a chief complaint of left lower molar pain. He has had a cracked tooth there for about 6 months, but in the last 2 weeks he has had a gradual increase in pain. He is scheduled to see a dentist next week, but is concerned about increasing pain in the possibility of infection. He denies any other symptoms. No systemic symptoms of illness such as fever or nausea. He is allergic to azithromycin. REVIEW OF SYSTEMS Constitutional: Negative. Negative for [...] patient is not nervous/anxious. OBJECTIVE Initial Vitals Temperature Pulse Rate Heart Rate Resp Blood Pressure SpO2 07/15/19 0035 07/15/19 0035 -- -- 07/15/19 0035 07/15/19 0035 36.7 ??C (!) 57 120/71 97 % Pain Score 07/15/19 0038 6 PHYSICAL EXAMINATION HENT: Head: Normocephalic and atraumatic. Mouth/Throat: Mucous membranes are moist. The indicated tooth shows extensive decay. The gumline around it is somewhat inflamed and erythematous. There is no obvious abscess noted. Eyes: Conjunctivae and EOM are normal. Neck: Normal range of motion. Cardiovascular: Normal rate. Pulmonary/Chest: Effort normal. Musculoskeletal: Normal range of motion. Neurological: He is alert and oriented to person, place, and time. Skin: Skin is dry and intact. No rash noted. Psychiatric: He has a normal mood and affect. ASSESSMENT/PLAN Final Diagnoses: as of Jul 15 349 Toothache Cracked Tooth Worsening pain in a previously fractured tooth. Likely resent represents infection/pericoronitis. Will start him on antibiotics-amoxicillin. Recommended ibuprofen and Tylenol as needed for pain. He should definitely keep his appointment with dentist next week. Viet Aguirre M.D. 07/15/19 0353 documented in this encounter Plan of Treatment Not on filedocumented as of this encounter Visit Diagnoses Diagnosis Toothache - Primary Cracked Tooth documented in this encounter Additional Health Concerns Assessment Noted Time PHQ-9 Depression Total Score: 15 06/06/2019 10:09 AM C DT documented as of this encounter Care Teams Chemical Engineering Teacher Relationship Specialty Start Date End Date Julian Santana M.D. PCP - General 05/13/17 [place] [address] documented as of this encounter
--- OUTSIDE RECORDS SUMMARY | 2022-09-25 11:01 | XMS_ITS | Encounter Summary ---
:1990 Author Organization [facility] Address [address] [place] [address] Care Team Providers Name Role Phone Julian Santana M.D. Primary Care Provider Encounter Details Date Type Department Care Team Description 05/08/2019 Clinical Communication Department of Kirsty Akers, Medicine, Aj Giordano M.D. [facility], in [address] [address] [place], [place] [phone] [address] (Work) [phone] Social History Tobacco Use Types Packs/Day Years [...] this encounter Miscellaneous Notes Telephone Encounter - Regan Juan M.D. - 05/10/2019 7:09 AM CDT Order is in and schedule looks right. Closing encounter. Telephone Encounter - Maribeth Ro - 05/09/2019 10:[address] Yessica I only see order that I can schedule for an EGD so we would need a new ordered placed forboth of them together so we can get it scheduled for tomorrow. Does anethesia know about this or is this something they need to schedule. Please advise. Carina Stahl Telephone Encounter - Regan Juan M.D. - 05/08/2019 10:03 PM CDT He did see John in January who ordered both an EGD and colonoscopy. Please schedule for Wednesday just in a 40 minute slot. He will need monitored anesthesia. Thanks. Telephone Encounter - Dionna Stanton R.N. - 05/08/2019 1:[address] Juan please advise, looks like it has been going on for past year or so. Telephone Encounter - Genny Kilpatrick I. - 05/08/2019 1:46 PM CDT Patient only has EGD ordered/scheduled. Called mom- there was a cancellation for Thursday 05/10. Moved him into that spot. She states Royal is bleeding from both ends and is wondering if a colonoscopy is needed also? Telephone Encounter - Dana Breaux - 05/08/2019 7:51 AM CDT Reason for Communication: Please call patient's Mom, Dayanara. Patient has a colonoscopy scheduled, but he was bleeding all weekend and they would like him to have a colonoscopy as soon as possible. Current Can Nursing/Provider leave a detailed message: Yes Did the patient refuse triage through Nurse line? (for symptom based concerns): NA Action Needed: Please call cinthia. Name of Medication (if relevant): NA documented in this encounter Plan of Treatment Not on filedocumented as of this encounter Visit Diagnoses Diagnosis Blood In Stool - Primary Hematemesis documented in this encounter Additional Health Concerns Assessment Noted Time PHQ-9 Depression Total Score: 27 02/23/2019 3:12 PM CD T documented as of this encounter Care Teams Resaw Feeder Relationship Specialty Start Date End Date Julian Santana M.D. PCP - General 05/13/17 [address] [place] [address] documented as of this encounter
--- OUTSIDE RECORDS SUMMARY | 2022-09-25 11:01 | XMS_ITS | Encounter Summary ---
:1990 Author Organization [facility] Address [address] [place] [address] Care Team Providers Name Role Phone Julian Santana M.D. Primary Care Provider Reason for Visit Reason Comments Med Refill Encounter Details Date Type Department Care Team Description 05/02/2019 Refill Department of Family Medicine, Monster Kmi M.D. Med Refill [facility], in [place], [address] [place] [address] [place] [address] [place] [address] [phone] Social History Tobacco Use Types Packs/Day Years [...] Telephone Encounter - Julian Santana M.D. - 05/03/2019 2:15 PM CDT Done. documented in this encounter Plan of Treatment Not on filedocumented as of this encounter Visit Diagnoses Diagnosis Bipolar I Disorder (HCC) - Primary documented in this encounter Additional Health Concerns Assessment Noted Time PHQ-9 Depression Total Score: 27 02/23/2019 3:12 PM CD T documented as of this encounter Care Teams Building Construction Contractor Relationship Specialty Start Date End Date Julian Santana M.D. PCP - General 05/13/17 [address] [place] [address] documented as of this encounter
--- OUTSIDE RECORDS SUMMARY | 2022-09-25 11:01 | XMS_ITS | Encounter Summary ---
:1990 Author Organization [facility] Address [address] [place] [address] Care Team Providers Name Role Phone Julian Santana M.D. Primary Care Provider Reason for Visit Reason Comments Abdominal Pain Rectal Bleeding Blood in Urine Vomiting Blood Outpatient (Routine) - Closed Specialty Diagnoses / Referred By Contact Referred To Procedures Contact Gastroenterology and Diagnoses Hematemesis Blood In Stool Julian Santana, [facility]at[facility] [address] [place] [address] Referral ID Status Reason Start Date Expiration Date Visits V isits Requested Authorized [id number] Closed Specialty 02/08/2019 02/08/2020 1 1 Services Required Encounter Details Date Type Department Care Team Description 02/10/2019 Comprehensive Visit Department of [place] Depend ence Polysubstance (HCC) (Primary Dx); Gastroenterology in , John, Hemateme sis; [place], [place] B[facility] MPAS, Blood In Stool; [address] [employer] Nicotine Dependence Cigarettes; [place], [place] [address]; [id number] Diarrhea [phone] [place] [address] Social History Tobacco Use Types Packs/Day Years [...] Sign Reading Time Taken Comments Blood Pressure 88/52 02/10/2019 3:44 PM CDT Pulse 64 02/10/2019 3:44 PM CDT Temperature - - Respiratory Rate - - Oxygen Saturation - - Inhaled Oxygen Concentration - - Weight 81.9 kg (180 lb 8.9 oz) 02/10/2019 3:44 PM CDT Height 180.3 cm (5' 10.98) 02/10/2019 3:44 PM CDT Body Mass Index 25.19 02/10/2019 3:44 PM CDT documented in this encounter Patient Instructions Patient InstructionsJohn Schmid P.A.-C. - 02/10/2019 3:40 PM CDT 1. Continue omeprazole 20 mg once daily before breakfast. Usually best taking 30- 60 min before a meal, but you can take it with meals as well. 2. Avoiding NSAIDs (ibuprofen, naproxen, Aleve, Excedrin, Advil). 3. Schedule your EGD and colonoscopy. Planning for Your Colonoscopy ?? If you smoke, quit or cut down at least two weeks before the colonoscopy. Tobacco use is not allowed on any medical center property. ?? Please follow plan discussed today for medication use before your colonoscopy. Additional recommendations include: ?? Hold NSAIDs (ibuprofen, naproxen, indomethacin, diclofenac, Celebrex) 3 days prior to your procedure. ?? Hold aspirin 5 days prior to your procedure. May resume 24-48 hours post- procedure (unless directed otherwise). ?? Hold all supplements, vitamins, and herbals 3 days before your procedure. ?? You may use acetaminophen for pain as needed through the day of procedure unless if directed otherwise. ?? Call your doctor if you get a fever, cold or rash. Your colonoscopy may need to be postponed. ?? Arrange for a responsible adult to drive you home after your colonoscopy. If you will have a sameday (i.e. outpatient) procedure, you will not be allowed to drive yourself home. ?? Arrange for a responsible adult to stay with you for 24 hours after you go home. ?? Avoid bringing small children with you to the medical center. The Day of Your Colonoscopy ?? Avoid consuming alcohol 24 hours before your colonoscopy. ?? Please follow the instructions in the Colon Prep pamphlet for instructions on what to consume / drink and what NOT to consume / drink 1 day before and day of the colonoscopy. ?? Please follow your plan for your medications as discussed with your provider. ?? Do not take any water pills or diuretics the morning of the colonoscopy. ?? Take your heart, blood pressure, stomach and / or cholesterol-lowering medication with a sip of water the morning of your colonoscopy IF your provider has told you to take them. ?? Take a shower or bath the evening before or the morning of your procedure. ?? Wear loose, comfortable clothing. ?? Do not wear makeup, nail irish, or contact lenses. ?? Leave valuables at home. documented in this encounter Consult Notes John Schmid P.A.-C. - 02/10/2019 3:40 PM CDT SUBJECTIVE REFERRING PROVIDER Julian Santana M.D. CHIEF COMPLAINT / REASON FOR VISIT Chief Complaint Patient presents with ??? Abdominal Pain ??? Rectal Bleeding ??? Blood in Urine ??? Vomiting Blood HISTORY OF PRESENT ILLNESS John Gavin is a pleasant 28 y.o. male with pertinent medical conditions including bipolar disorder type 1, ADHD, history of polysubstance dependence who presents for further evaluation of a number of GI concerns including chronic history of hematochezia, recent history of hemoptysis, vo miting, chronic upper abdominal pains, reflux symptoms, chronic diarrhea. He reports having semi urgent loose stools 2 to 3 times a day present for the past several years. His stools are sometimes formed. He tells me that he has intermittent history of hematochezia and melena since age 18. He has chronic intermittent upper abdominal pains primarily at the epigastric and left upper quadrant region. He also has associated mild nausea and intermittent episodes of vomiting. Hehas reflux symptoms for the past couple years. He describes them primarily is having sternal burning, upper abdominal pains, chest discomfort which at times is associated with food intake. Over the past 2 to 3 months, he has noticed having episodes of coughing up blood. His last episode of hematemesisand hemoptysis was approximately 1 week ago. He also reports having had blood in urine on a couple occasions over the past couple months. The last occurrence of this was approximately 1 month ago. He does not have any other associated urinary symptoms. His appetite has been fluctuating. He has had upwa rds of 5 lb of weight loss in the past month. He reports having a significant polysubstance abuse history. He has smoked marijuana daily for a number of years. He consumes approximately 45 cans of beer a week. He has been using street math for thepast 5 to 6 years intermittently. Although, he reports not having used for the past couple weeks. Hetells me that his sister had initially introduced him to using meth. He also has used cocaine in thepast as well. He smokes up to 2 packs of cigarettes a day. He tells me that he has had 2 prior episodes of being unresponsive with associated symptoms of massive chest pain and pain radiating into the left arm. He had to be resuscitated at both of those times. He believes the last episode he has had was at age 27. He has started omeprazole 20 mg daily, but only takes it a couple times a week. He usually forgets to take it. He is unsure if it is helping with his symptoms. He otherwise is not taking any other medication for his GI symptoms. No prior EGD or colonoscopy evaluations. He denies any family history of IBD, celiac disease, or colon cancer. He denies having any recent fever, chills, sweats. He denies having any recent chest pain or pressure at rest or with exertion, dyspnea with exertion, oral or eye sores, new or worsening polyarthralgia, rash, lower extremity edema, jaundice, icterus, dark urine, general pruritus. MEDICAL HISTORY Patient Active Problem List Diagnosis ??? Bipolar I Disorder (HCC) ??? Attention Deficit With Hyperactivity Disorder ??? Tic Disorder ??? Abuse Tobacco Smoking ??? Dependence Polysubstance (HCC) ??? Blood In Stool ??? Hemoptysis ??? Hematemesis No past medical history on file. Past Surgical History: Procedure Laterality Date ??? ADENOIDECTOMY ??? TONSILLECTOMY CURRENT MEDICATIONS Current Outpatient Prescriptions on File Prior to Visit Medication Sig ??? omeprazole (PriLOSEC) [address] capsule Take 1 capsule (20 mg total) by mouth every morning before breakfast. ??? risperiDONE (RisperDAL) 1 mg tablet Take 1 tablet (1 mg total) by mouth at bedtime. OK to titrate up to 3 mg at bedtime No current facility-administered medications on file prior to visit. ALLERGIES/CONTRAINICATIONS Allergies Allergen Reactions ??? Azithromycin Hives and Rash SOCIAL HISTORY Social History Substance Use Topics ??? Smoking status: Current Every Day Smoker Packs/day: 1.00 Types: Cigarettes ??? Smokeless tobacco: Never Used ??? Alcohol use 0.6 - 9.0 oz/week 1 - 15 Cans of beer per week Comment: daily Lives in [place], [place] with his girlfriend and brother. He has a 5-year-old daughter. He is accompanied by his girlfriend who is 8 weeks with his child. 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 FAMILY HISTORY Family History Problem Relation Age of Onset ??? Suicide Father ??? Asthma Father ??? Mental illness Father ??? Depression Father ??? Emphysema of lung Grandfather ??? Asthma Mother ??? History of - migraine Mother ??? Asthma Brother ??? History of - migraine Grandmother ??? Hypertension Grandmother ??? Heart murmur Grandmother ??? Heart attack Grandmother ??? Glaucoma Uncle ??? Suicide Uncle ??? Cataracts Grandmother REVIEW OF SYSTEMS General: No fevers or chills. Positive mild weight loss. Eyes: No yellowing of eyes, no eye sores. ENT: No mouth sores Pulm: No cough, no shortness of breath CV: No chest pain, no dyspnea on exertion GI: See HPI. Otherwise negative : No dark urine. Positive hematuria. Skin: No jaundice, no rashes, no pruritus. Complete 14-point systems review otherwise negative. OBJECTIVE BP (!) 88/52 Pulse 64 Ht 180.3 cm Wt 81.9 kg BMI 25.19 kg/m?? PHYSICAL EXAMINATION GEN: Patient is in no acute distress. Patient is polite and cooperative. Appropriately dressed and normal hygiene. EYES: No icterus. Pupils equal and round. ENT: Oropharynx clear. Normal dentition. Mallampati class 1. NECK: Supple without masses, lymphadenopathy or thyromegaly. RESP: Clear to auscultation bilaterally. Normal equal chest rise with inspiration bilaterally. CV: RRR without murmur; No abdominal bruits; 2+ pedal pulses. ABD: Soft. Nontender to palpation. No rebound guarding or rigidity. No organomegaly or mass appreciated. Normal bowel sounds. EXTREMITY: No edema. SKIN: No jaundice, spiders or rashes. Warm and dry. PSYCH: Alert and oriented x 3. NEURO: No asterixis. MS: Normal gait. No joint swelling in arms or legs. Extremities with full range of motion. DIAGNOSTICS Reviewed recent relevant diagnostics. Please see HPI as well. Lab: 01/14/19: CBC overall normal with mildly elevated WBC of 9.9. Hemoglobin 16.3. Electrolytes and kidney function normal with creatinine of 0.87. 06/08/18: Most recent liver biochemistries within normal levels. Total bili 0.5, ALT 9, AST 29, alk-phos 92, albumin 4.6. Lab Results Component Value Date PROT 6.8 06/08/2018 ALBUMIN 4.6 06/08/2018 Lab Results Component Value Date TSH 0.4 01/14/2019 Lab Results Component Value Date URINESOURCE Midstream 01/14/2019 CLARITYU Cloudy (A) 01/14/2019 COLORU Yellow 01/14/2019 BLOODU Negative 01/14/2019 RBCU None Seen 01/14/2019 NITRITEU Negative 01/14/2019 LEUKOCYTESU Negative 01/14/2019 PROTEINQUALU 30 (A) 01/14/2019 GLUCOSEU Negative 01/14/2019 KETONESU Negative 01/14/2019 BILIRUBINU Negative 01/14/2019 PHURINE 7.0 01/14/2019 SPECGRAV 1.017 01/14/2019 UROBILINOGEN 0.2 01/14/2019 Radiology: Reviewed most recent relevant imaging. 06/08/18: CT abdomen pelvis with contrast showed normal liver, gallbladder, spleen, and pancreas. Normal caliber of large and small bowel. The colon was diffusely nondistended, which accentuate wall thickness. There was no significant wall thickening or perienteric inflammatory change. There was presence of prominent mesenteric lymph nodes which was suggestive of possible adenitis at that time. Procedures: No prior EGD or colonoscopy. ASSESSMENT / PLAN 1. Hemoptysis 2. Upper abdominal pain, epigastric and left upper quadrant 3. Chronic GERD 4. Chronic diarrhea 5. Chronic intermittent melena and hematochezia 6. Hematuria 7. Polysubstance abuse including marijuana, methamphetamine, and cocaine. 8. Alcohol dependence 9. Nicotine dependence, cigarette This is a pleasant 28-year-old male accompanied by his girlfriend today who presents for multiple recent and chronic GI concerns. He also has significant polysubstance abuse with significant alcohol dependence. I reviewed his recent diagnostic labs which showed normal hemoglobin and normal kidney function electrolytes. There was no blood noted in recent UA from January 14. Normal liver biochemistries from May 2018. He had a CT abdomen pelvis in May 2018 that was fairly unremarkable, other than prominent me senteric lymph nodes which at that time was suggestive possible adenitis. I discussed the nature of his symptoms and condition. I am worried that a number of his symptoms aresubjective due to his significant polysubstance abuse and alcohol dependence. Provided counseling onseeking therapy for his polysubstance abuse and alcohol dependence. Recommended exploring local inpatient and outpatient rehab centers. Recommended considering going to an Alcohol anonymous meeting. Strongly encouraged cessation of all toxic causing substances, and considering full alcohol abstinence or significantly limiting his alcohol consumption. I also discussed and provided counseling on smoking cessation. Recommended further evaluation with an EGD and colonoscopy to assess for potential gastritis/esophagitis/duodenitis/H pylori/upper GI bleed and to assess for IBD/polyp/lower GI bleed. Recommend adhering to PPI therapy. We may consider testing for celiac disease as well if the EGD and colonoscopy studies are negative, and if diarrhea persists. However, would strongly recommend cessation of polysubstance abuse and working on alcohol abstinence to see if that may also improve his symptoms. Plan 1. We will schedule a(n) EGD and colonoscopy for further evaluation of symptoms. ?? Discussed potential risks with procedure. Discussed and provided preprocedure information, including preprocedure medication management and fasting. Discussed need for alternate shuttle truck driver on day of procedure. 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 Patient is medically optimized for procedure. ?? Patient is ASA physical status category 3. Mallampati score 1. 2. Adhere to omeprazole 20 mg once daily therapy, taken 30 to 60 min before breakfast. 3. Avoid NSAID use at this time. 4. Work on polysubstance use cessation and alcohol abstinence. Recommended seeking out therapy through inpatient or outpatient rehab centers. Recommended meeting with local Alcohol anonymous group. I have answered all of patient's questions to my best ability. No learning barriers present. Patient verbalizes understanding and agreement to today's plan. I personally spent 45 min of a total of 60 minutes face to face with the patient in counseling and discussion and/or coordination of care as described above. documented in this encounter Plan of Treatment Not on filedocumented as of this encounter Visit Diagnoses Diagnosis Dependence Polysubstance (HCC) - Primary Hematemesis Blood In Stool Nicotine Dependence Cigarettes Hemoptysis Diarrhea documented in this encounter Additional Health Concerns Assessment Noted Time PHQ-9 Depression Total Score: 25 02/08/2019 2:45 PM CD T documented as of this encounter Care Teams Stereotype Finisher Relationship Specialty Start Date End Date Julian Santana M.D. PCP - General 05/13/17 [address] [place] [id number] documented as of this encounter
--- OUTSIDE RECORDS SUMMARY | 2022-09-25 11:01 | XMS_ITS | Encounter Summary ---
:1990 Author Organization [facility] Address [address] [place] [address] Care Team Providers Name Role Phone Julian Santana M.D. Primary Care Provider Reason for Referral Outpatient (Routine) - Closed Specialty Diagnoses / Referred By Contact Referred To Procedures Contact Gastroenterology and Porfirio Hernandez [facility] [address] [place] [address] Referral ID Status Reason Start Date Expiration Date Visits Requ ested Visits Authorized [id number] Closed 05/10/2019 05/09/2020 1 1 Encounter Details Date Type Department Care Team Description 05/10/2019 Hospital Encounter Department of Porfirio Hernandez Gastroenterology in Marty Reardon M.D. [address] [phone] Social History Tobacco Use Types Packs/Day Years [...] Reading Time Taken Comments Blood Pressure 104/63 05/10/2019 3:35 PM CDT Pulse 94 05/10/2019 3:55 PM CDT Temperature 36.3 ??C (97.3 ??F) 05/10/2019 1:26 PM CDT Respiratory Rate 16 05/10/2019 1:26 PM CDT Oxygen Saturation 99% 05/10/2019 3:55 PM CDT Inhaled Oxygen Concentration - - Weight - - Height - - Body Mass Index - - documented in this encounter Medications at Time of Discharge Medication Sig Dispensed Refills Start Date End Date omeprazole (PriLOSEC) Take 1 capsule (20 mg 30 capsule 11 01/14/[address] capsule total) by mouth every morning before breakfast. polyethylene glycol Mix and take as 238 g 0 05/08/2019 05/25/2019 (MIRALAX) 17 gram/dose directed according to oral powder booklet Preparation Instructions for Your Colonoscopy. risperiDONE Take 1 tablet (3 mg 90 tablet 1 05/03/201910/29 (RisperDAL) 3 mg total) by mouth at tabletIndications: bedtime. Bipolar I Disorder (HCC) documented as of this encounter Procedure Notes Porfirio Hernandez M.D. - 05/10/2019 3:09 PM CDTAssociated Order(s): COLONOSCOPY [facility] Patient Name: John Gavin Procedure Date: 05/10/2019 3:09 PM Date of : 1990 Age: 28 Gender: Male Procedure: Colonoscopy Providers: Porfirio Newman (Ordering Provider) Referring Provider: Porfirio Hernandez Pre-op Diagnoses: Chronic diarrhea, Melena Post-op Diagnoses: - The entire examined colon is normal. - A few ulcers in the terminal ileum. Biopsied. Recommendation: - Await pathology results. - Avoid NSAIDs - Return to GI clinic at appointment to be scheduled. Findings: The entire examined colon appeared normal. The terminal ileum contained a few ten mm ulcers. No bleeding was present. Biopsies were taken with a cold forceps for histology. Medicines: Monitored Anesthesia Care Complications: No immediate complications. Estimated blood loss: Minimal. Procedure Details: The patient was seen, evaluated, and history reviewed. Airway and heart and lung exams were performed and were satisfactory for planned sedation care. The risks, benefits and alternatives for the procedure and sedation were discussed and informed consent was obtained. A procedural pause was conducted in the presence of assisting personnel to verify the correct patient identity and procedure to be performed. Throughout the procedure, the patient's blood pressure, pulse, and oxygen saturations were monitored continuously. The Colonoscope was introduced under direct vision through the anus and advanced to 10 cm into the ileum. The colonoscopy was performed without difficulty. The patient tolerated the procedure well. The quality of the bowel preparation was evaluated using the BBPS ([place] Bowel Preparation Scale) with scores of: Right Colon = 3, Transverse Colon = 3 and Left Colon = 3 (entire mucosa seen well with no residual staining, small fragments of stool or opaque liquid). The total BBPS score equals 9. Sedation: Anesthesia was administered by an anesthesia professional. The following parameters were monitored: oxygen saturation, heart rate, blood pressure, respiratory rate, EKG, adequacy of pulmonary ventilation, and response to care. Porfirio Hernandez, 05/10/2019 3:37:28 PM This report has been signed electronically. Number of Addenda: 0 Note Initiated On: 05/10/2019 3:09 PM Porfirio Hernandez M.D. - 05/10/2019 2:59 PM CDTAssociated Order(s): UPPER GI ENDOSCOPY [facility] Patient Name: John Gavin Procedure Date: 05/10/2019 2:59 PM Date of : 1990 Age: 28 Gender: Male Procedure: Upper GI endoscopy Providers: Porfirio Newman (Ordering Provider) Referring Provider: Porfirio Hernandez Pre-op Diagnoses: Melena, Nausea with vomiting Post-op Diagnoses: - Normal esophagus. - Normal stomach. Biopsied. - Normal examined duodenum. Recommendation: - Await pathology results. - Will proceed with colonoscopy as scheduled. Findings: The esophagus was normal. The entire examined stomach was normal. Biopsies were taken with a cold forceps for histology. The examined duodenum was normal. Medicines: Monitored Anesthesia Care Complications: No immediate complications. Estimated blood loss: Minimal. Procedure Details: The patient was seen, evaluated, and history reviewed. Airway and heart and lung exams were performed and were satisfactory for planned sedation care. The risks, benefits and alternatives for the procedure and sedation were discussed and informed consent was obtained. A procedural pause was conducted in the presence of assisting personnel to verify the correct patient identity and procedure to be performed. Throughout the procedure, the patient's blood pressure, pulse, and oxygen saturations were monitored continuously. The Endoscope was introduced under direct vision through the mouth, and advanced to the second part of duodenum. The upper GI endoscopy was accomplished with ease. The patient tolerated the procedure well. Sedation: Anesthesia was administered by an anesthesia professional. The following parameters were monitored: oxygen saturation, heart rate, blood pressure, respiratory rate, EKG, adequacy of pulmonary ventilation, and response to care. Porfirio Hernandez, 05/10/2019 3:08:00 PM This report has been signed electronically. Number of Addenda: 0 Note Initiated On: 05/10/2019 2:59 PM documented in this encounter Plan of Treatment Scheduled Referrals Name Type Priority Associated Order Schedule Diagnoses Gastroenterology and Outpatient Routine Expecte d: Hepatology office visit Referral 04/29 (clinic) (Approximate), Expires: 05/10/2022 documented as of this encounter Procedures Procedure Name Priority Date/Time Associated Comments Diagnosis COLONOSCOPY 05/10/2019 3:09 Results for this PM CDT procedure are i n the results section. PATHOLOGY SERVICES Routine 05/10/2019 3:02 Result s for this PM CDT procedure are i n the results section. UPPER GI ENDOSCOPY 05/10/2019 2:59 Result s for this PM CDT procedure are i n the results section. ESOPHAGOGASTRODUODENOSCOPY 05/10/2019 2:53 Blood In Stool PM CDT Hematemesis COLONOSCOPY 05/10/2019 2:53 Blood In Stool PM CDT Hematemesis ESOPHAGOGASTRODUODENOSCOPY Hemat emesis Blood In Stool Case Notes not done documented in this encounter Results COLONOSCOPY (05/10/2019 3:09 PM CDT) Specimen (Source) Anatomical Location Collection Method / Collectio n Time Received Time / Laterality Volume Narrative This result has an attachment that is no t available. Procedure Note Porfirio Hernandez M.D. - 05/10/2019 3:0 9 PM CDT [facility] Patient Name: John Gavin Procedure Date: 05/10/2019 3:09 PM Date of : 1990 Age: 28 Gender: Male Procedure: Colonoscopy Providers: Porfirio Newman (Ordering Provider) Referring Provider: Porfirio Hernandez Pre-op Diagnoses: Chronic diarrhea, Marlon na Post-op Diagnoses: - The entire examined colon is normal. - A few ulcers in the terminal ileum. B iopsied. Recommendation: - Await pathology results. - Avoid NSAIDs - Return to GI clinic at appointment to be scheduled. Findings: The entire examined colon appeared norm al. The terminal ileum contained a few ten mm ulcers. No bleeding was present. Biopsies were taken with a col d forceps for histology. Medicines: Monitored Anesthesia Care Complications: No immediate complication s. Estimated blood loss: Minimal. Procedure Details: The patient was seen, evaluated, and history reviewed. Airway and heart and lung exa ms were performed and were satisfactory for pato nned sedation care. The risks, benefits and alternatives fo r the procedure and sedation were discussed a nd informed consent was obtained. A procedural paus e was conducted in the presence of assisting personnel to verify the correct patient identity and procedure to be performed. Throughout the procedure, the patient's blood pressure, pulse, and ox ygen saturations were monitored continuously . The Colonoscope was introduced under di rect vision through the anus and advanced to 10 cm into the ileum. The colonoscopy was performed wi thout difficulty. The patient tolerated the p rocedure well. The quality of the bowel preparat ion was evaluated using the BBPS ([place] Bowel Preparation Scale) with scores of: Right Colon = 3, Transverse Colon = 3 and Left Colon = 3 (entire mu cosa seen well with no residual staining, small f ragments of stool or opaque liquid). The total BBPS score equals 9. Sedation: Anesthesia was administered by an anest hesia professional. The following parameters were monitored: oxygen satur ation, heart rate, blood pressure, respiratory rate, EKG, adequa cy of pulmonary ventilation, and response to care. Porfirio Hernandez, 05/10/2019 3:37:28 PM This report has been signed electronical ly. Number of Addenda: 0 Note Initiated On: 05/10/2019 3:09 PM Porfirio Hernandez M.D. GI PROCEDURE ORDERABLES Pathology Services (05/10/2019 3:02 PM CDT) Component Value Ref Test Analysis Performed At [facility] gist Range Method Time Signature PATHOLOGY Patient Name: JOHN GAVIN [facility] MR#: [id number] [facility] Submitting Physician: PORFIRIO HERNANDEZ MD [id number] Specimen #[id number] Performing Lab: ??[facility] ? [address] [place] [id number] Source: A: Stomach biopsy-R/O Heliocbacter pylori B: Ileum biopsy for ileitis Clinical History/Pre-Op Blood in stool [K92.1], hematemesis [K92.0] Gross Description A) Received in a container labeled A-sto mach are three, 0.2-0.3 cm in greatest dimensions portions of tissue. ??The entire specimen is subm itted in one cassette. B) Received in a container labeled B-ileum biopsy for ilei tis are multiple, 0.1-0.3 cm in greatest dimensions portio ns of tissue. ??The entire specimen is submitted in one cassette. KG/ed ?? Diagnosis ? A) Stomach, biopsy: ? NORMAL ANTRAL AND FUNDIC MUCOSA. ??NEGATIVE FOR HELIC OBACTER PYLORI (IMMUNOSTAIN). B) Small bowel, terminal ileum, biopsy: ? FOCAL ACTIVE ILEITIS CONSISTENT W ITH APHTHOUS ULCER. ??NO GRANULOMAS OR FEATURES OF CHRONICITY ARE IDENTIFIED. ?? Electronically Signed By ORQUIDEA SEGURA MD - 05/12/2019 ed/05/12/2019 Specimen (Source) Anatomical Collection Method Collection Time Re ceived Time Location / / Volume Laterality Biopsy (Stomach) 05/10/2019 3:02 PM CDT Polyp (Colon) 05/10/2019 3:18 PM CDT Comment: ileitis Porfirio Hernandez M.D. LAB SURG PATH ORDERABLES Performing Organization Address City/State/ZIP Code Phon e Number [facility] [address] [place] [id number] UPPER GI ENDOSCOPY (05/10/2019 2:59 PM CDT) Specimen (Source) Anatomical Location Collection Method / Collectio n Time Received Time / Laterality Volume Narrative This result has an attachment that is no t available. Procedure Note Porfirio Hernandez M.D. - 05/10/2019 2:5 9 PM CDT [facility] Patient Name: John Gavin Procedure Date: 05/10/2019 2:59 PM Date of : 1990 Age: 28 Gender: Male Procedure: Upper GI endoscopy Providers: Porfirio Newman (Ordering Provider) Referring Provider: Porfirio Hernandez Pre-op Diagnoses: Melena, Nausea with vo miting Post-op Diagnoses: - Normal esophagus. - Normal stomach. Biopsied. - Normal examined duodenum. Recommendation: - Await pathology results. - Will proceed with colonoscopy as sche duled. Findings: The esophagus was normal. The entire examined stomach was normal. Biopsies were taken with a cold forceps for histology. The examined duodenum was normal. Medicines: Monitored Anesthesia Care Complications: No immediate complication s. Estimated blood loss: Minimal. Procedure Details: The patient was seen, evaluated, and history reviewed. Airway and heart and lung exa ms were performed and were satisfactory for pato nned sedation care. The risks, benefits and alternatives fo r the procedure and sedation were discussed a nd informed consent was obtained. A procedural paus e was conducted in the presence of assisting personnel to verify the correct patient identity and procedure to be performed. Throughout the procedure, the patient's blood pressure, pulse, and ox ygen saturations were monitored continuously . The Endoscope was introduced under dire ct vision through the mouth, and advanced to the second part of duodenum. The upper GI endoscopy was accomplished with ease. The patient tolerated the pr ocedure well. Sedation: Anesthesia was administered by an anest hesia professional. The following parameters were monitored: oxygen satur ation, heart rate, blood pressure, respiratory rate, EKG, adequa cy of pulmonary ventilation, and response to care. Porfirio Hernandez, 05/10/2019 3:08:00 PM This report has been signed electronical ly. Number of Addenda: 0 Note Initiated On: 05/10/2019 2:59 PM Porfirio Hernandez M.D. GI PROCEDURE ORDERABLES documented in this encounter Visit Diagnoses Not on filedocumented in this encounter Admitting Diagnoses Diagnosis Hematemesis Blood In Stool documented in this encounter Administered Medications Inactive Administered Medications - up to 3 most recent administrations Medication Order MAR Action Action Date Dose Rate Site lactated ringers Rate/Dose Verify 05/10/2019 2:54 PM CDT 100 mL/hr, intravenous, Continuous, Starting on Wed05/10/19 at 1345, Pre-Op New Bag 05/10/2019 1:31 PM CDT 100 mL/hr 100 mL/hr lidocaine viscous 2 % mucosal solution 1 0 mL (XYLOCAINE) 10 mL, mouth/throat, As needed, Gargle v iscous lidocaine, Starting on Wed05/10/19 at 1331, For 2 doses, Pre-Op, Indications: administrat ion of local anesthesia midazolam (PF) injection 2 mg (VERSED) Given 05/10/2019 1:48 PM CDT 2 mg 2 mg, intravenous, Once, On Wed05/10/19 at 1400, For 1 dose, Pre-Op sodium chloride 0.9 % injection 10 mL 10 mL, intravenous, As needed, line care , Starting on Wed05/10/19 at 1331, Pre-Op, Peripheral Intravenous Catheter and Rapid Infusion Cat heter, prior to blood sampling, post blood transfusion or post blood samplin g sodium chloride 0.9 % injection 3 mL 3 mL, intravenous, As needed, line care, Starting on Wed05/10/19 at 1331, Pre-Op, Prior to and following infusion and betw een multiple consecutive infusions: sodium chloride 0.9 % injection sodium chloride 0.9 % injection 3 mL 3 mL, intravenous, Every 12 hours scheduled, First dos e on Wed05/10/19 at 2100, Pre-Op, Peripheral Intravenous Catheter and Rapid Infu ricky Catheter, when no infusion to maintain patency documented in this encounter Active and Recently Administered Medications Times are shown in CDT. Scheduled Medication Order 05/08/2019 05/09/2019 05/10/2019 midazolam (PF) injection 2 mg (VERSED) (COMPLETED) 1348 (Given - Provider: Rosanna Elias R.N.) 2 mg, intravenous, Once, On Wed05/10/19 at 1400, For 1 dose, Pre -Op sodium chloride 0.9 % injection 3 mL 3 mL, intravenous, Every 12 hours schedu led, First dose on Wed05/10/19 at 2100, Pre-Op, Peripheral Intravenous Catheter and Rapid Infusion Catheter, when no infusion to maintain patency Continuous Medication Order 05/08/2019 05/09/2019 05/10/2019 lactated ringers 1331 (New Bag - Provider: Rosanna Elias R.N.)1454 (Rate/Dose Verify - Provider: Adelfo Barker APRN, FIXING CARPENTER)1525 (Anesthesia Volume Adjustment - Provider: Adelfo Barker APRN, JOSIAH) 100 mL/hr, intravenous, at 100 mL/hr, Co ntinuous, Starting Wed05/10/19 at 1345, Pre-Op PRN Medication Order 05/08/2019 05/09/2019 05/10/2019 lidocaine viscous 2 % mucosal solution 10 mL (XYLOCAINE) 10 mL, mouth/throat, As needed, Gargle v iscous lidocaine, Starting Wed05/10/19 at 1331, For 2 doses, Pre-Op, Indications: Administration of Local Anesthesia sodium chloride 0.9 % injection 10 mL 10 mL, intravenous, As needed, line care , Starting Wed05/10/19 at 1331, Pre-Op, Peripheral Intravenous Catheter and Rapid Infusion Catheter, prior to blood sampling, post blood transfusion or post blood sampling sodium chloride 0.9 % injection 3 mL 3 mL, intravenous, As needed, line care, Starting Wed05/10/19 at 1331, Pre-Op, Prior to and following infusion and between multiple consecutive infusions: sodium chloride 0.9 % injection documented in this encounter Additional Health Concerns Assessment Noted Time PHQ-9 Depression Total Score: 27 02/23/2019 3:12 PM JAGJIT T documented as of this encounter Care Teams Black [employer] 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 PCP - General 05/13/17 [address] [place] [phone] documented as of this encounter
--- OUTSIDE RECORDS SUMMARY | 2022-09-25 11:01 | XMS_ITS | Encounter Summary ---
:1990 Author Organization [facility] Address [address] [place] [address] Care Team Providers Name Role Phone Julian Santana M.D. Primary Care Provider Reason for Visit Reason Onset Date Comments Communication 03/02/2019 ER follow up needed in IBH/Pschology Encounter Details Date Type Department Care Team Description 03/02/2019 Clinical Department of Julian Santana Communication (ER Communication Family MedicineChai M.D. follow up needed in [facility], [address] [place] [address] IB/Pscholo ) in [address] [address] [place], [place] [phone] (Work) [phone] Social History Tobacco Use Types Packs/Day Years [...] this encounter Miscellaneous Notes Telephone Encounter - Salma Agustin - 03/02/2019 6:55 PM CDT Appointment scheduled. Telephone Encounter - Lambert Justin R.N. - 03/02/2019 3:[address] Londono: There is an opening next for a 3:00 or 3:30 that can be used. Routed to Salma Agustin. Telephone Encounter - Julian Londono M.D. - 03/02/2019 3:03 PM CDT There is an opening next for a 3:00 or 3:30 that can be used. Telephone Encounter - Lambert Justin R.N. - 03/02/2019 2:51 PM CDT Please advise on recommended time frame for patient to follow up with you in clinic. Thank you. Routed to Dr. Londono. Telephone Encounter - Salma Agustin - 03/02/2019 1:31 PM CDT John Everett was seen recently in the ER and needs a follow up with Dr. Londono for a med adjustment. Isee he has an appointment coming up in early March and was wondering if that appointment should be rescheduled or if he needs a new order from his PCP. Please let me know and I'll get him scheduled accordingly. Thank you. documented in this encounter Plan of Treatment Not on filedocumented as of this encounter Visit Diagnoses Not on filedocumented in this encounter Additional Health Concerns Assessment Noted Time PHQ-9 Depression Total Score: 27 02/23/2019 3:12 PM CD T documented as of this encounter Care Teams Hydrate Control Tender Relationship Specialty Start Date End Date Julian Santana M.D. PCP - General 05/13/17 [place] [phone] (work) documented as of this encounter
--- OUTSIDE RECORDS SUMMARY | 2022-09-25 11:01 | XMS_ITS | Encounter Summary ---
:1990 Author Organization [facility] Address [address] [place] [address] Care Team Providers Name Role Phone Julian Santana M.D. Primary Care Provider Reason for Visit Reason Comments Dental Pain bottom left side,for couple weeks Encounter Details Date Type Department Care Team Description 09/04/2019 Office Visit Urgent Care in [facility] Monster Baker P.A.-C., P.A. [address] [place] [address] Toothache (Primary Dx) [place], [place] Addison Sidhu, P.A.-C. [address] [place] [address] Social History Tobacco Use Types [...] Sign Reading Time Taken Comments Blood Pressure 114/71 09/04/2019 4:30 PM CDT Pulse 88 09/04/2019 4:30 PM CDT Temperature 36.6 ??C (97.9 ??F) 09/04/2019 4:30 PM CDT Respiratory Rate - - Oxygen Saturation 98% 09/04/2019 4:30 PM CDT Inhaled Oxygen Concentration - - Weight 82.9 kg (182 lb 12.2 oz) 09/04/2019 4:30 PM CDT Height - - Body Mass Index 25.5 05/25/2019 11:57 AM CDT documented in this encounter Progress Notes Addison Sidhu P.A.-C. - 09/04/2019 7:30 PM CDT He has had a sore left lower tooth #18 over the past couple weeks, getting more tender. He continuesto smoke and vape and we strongly advised him against this. He has not had any fever or chills. He does have some localized adenopathy underneath the left jaw. OBJECTIVE PHYSICAL EXAMINATION HEENT: He has got a tender, swollen gumline and a rotten tooth #18. The ears and throat are normal. No fever. Neck: Supple. No abscess palpable by my exam. ASSESSMENT / PLAN #1 Dental infection PLAN: Rocephin and Augmentin, and see Dental Clinic tomorrow with the [facility]. Recheck as neededworsening and he agrees to do so. CT CT Job ID: [id number] documented in this encounter Plan of Treatment Not on filedocumented as of this encounter Visit Diagnoses Diagnosis Toothache - Primary documented in this encounter Administered Medications Inactive Administered Medications - up to 3 most recent administrations Medication Order MAR Action Action Date Dose Rate Site cefTRIAXone injection 1 Given 09/04/2019 4:51 PM 1 g Left Vastus Lateralis g (ROCEPHIN) CDT 1 g, intramuscular, Once, On 09/04/19 at 1645, For 1 dose, For IM injection ONLY Recon with NaCl 0.9% in the amount listed for the vial. Draw up and administer as indicated for the dose. 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 PCP - General 05/13/17 [address] [place] [phone] documented as of this encounter
--- OUTSIDE RECORDS SUMMARY | 2022-09-25 11:01 | XMS_ITS | Encounter Summary ---
:1990 Author Organization [facility] Address [address] [place] [address] Care Team Providers Name Role Phone Julian Santana M.D. Primary Care Provider Encounter Details Date Type Department Care Team Description 05/30/2019 Clinical Communication Department of Reg[facility] Gastroenterology in Marty Reardon M.D. 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 PCP - General 05/13/17 [address] [place] [phone] documented as of this encounter
--- OUTSIDE RECORDS SUMMARY | 2022-09-25 11:01 | XMS_ITS | Encounter Summary ---
:1990 Author Organization [facility] Address [address] [place] [address] Care Team Providers Name Role Phone Julian Santana M.D. Primary Care Provider Reason for Visit Reason Comments Rectal Bleeding blood in his stool for some time and today there is much more bright red blood with each time and diarrhea, he states he feels bloated and naueated with abd pain.07/08 Encounter Details Date Type Department Care Team Description 05/05/2019 Emergency [facility] Ruperto Frazier Ble eding Rectal Department [facility] (Primary Dx) [address] [place] [address] [place], [place] [phone] Social History Tobacco Use Types Packs/Day Years [...] Sign Reading Time Taken Comments Blood Pressure 121/71 05/05/2019 10:30 PM CDT Pulse 96 05/05/2019 10:30 PM CDT Temperature 36.7 ??C (98.1 ??F) 05/05/2019 10:18 PM CDT Respiratory Rate 15 05/05/2019 10:18 PM CDT Oxygen Saturation 96% 05/05/2019 10:30 PM CDT Inhaled Oxygen Concentration - - Weight 89.4 kg (197 lb 1.5 oz) 05/05/2019 10:19 PM CDT Height 180.3 cm (5' 11) 05/05/2019 10:19 PM CDT Body Mass Index 27.49 05/05/2019 10:19 PM CDT documented in this encounter Discharge Instructions AttachmentsThe following attachments cannot be sent through Care Everywhere. Rectal Bleeding Wbms-kf-Tcrl (British)documented in this encounter Medications at Time of Discharge Medication Sig Dispensed Refills Start Date End Date omeprazole (PriLOSEC) 20 Take 1 capsule (20 30 capsule 11 01/14/[address] capsule mg total) by mouth every morning before breakfast. risperiDONE (RisperDAL) Take 1 tablet (3 mg 90 tablet 1 03/201911/16/2019 3 mg tabletIndications: total) by mouth at Bipolar I Disorder (HCC) bedtime. documented as of this encounter ED Notes Ruperto Frazier M.D. - 05/05/2019 10:23 PM CDT SUBJECTIVE CHIEF COMPLAINT/REASON FOR VISIT Rectal Bleeding (blood in his stool for some time and today there is much more bright red blood witheach time and diarrhea, he states he feels bloated and naueated with abd pain.8/10) HISTORY OF PRESENT ILLNESS 28-year-old male with a history of polysubstance dependence (methamphetamines), smoking tobacco abuse, bipolar I disorder, attention deficit with hyperactivity disorder, tic disorder, depressive disorder, generalized anxiety disorder, constipation, and hematemesis presents to the Emergency Department for evaluation of rectal bleeding. The patient reports experiencing an increased amount of blood in his stool today. He has been having this issue for quite some time but noticed much more jflycg-rpi-qwvsmoi blood in his stool with each bowel movement today, which prompted him to visit the ED. He had two episodes of hematochezia today, which is not normal for him. He states the hematochezia occurs intermittently. With his episodes of hematochezia today, the patient additionally reports experiencing fatigue, nausea, and constant, cramping abdominal pain with a severity of 8/10 in his mid-lower abdomen. His pain improves after every bowel movement. He denies lightheadedness, dizziness, syncope, and shortness of breath. The patient reportedly has a colonoscopy scheduled on 05/22 to further evaluate this issue. The patient's EMR and PMH has been reviewed and included in the HPI. The patient is currently a 1 pack per day smoker. He has not consumed any alcohol recently but reports using marijuana daily. He typically uses 1-1.5 grams of meth daily; his last use was 05/04. The patient has an allergy to azithromycin. History provided by: Patient joint terminal attack controller needed/used: no REVIEW OF SYSTEMS Constitutional: Negative for appetite change and fever. HENT: Negative for congestion and voice change. Eyes: Negative for photophobia and visual disturbance. Respiratory: Negative for apnea and shortness of breath. Cardiovascular: Negative for chest pain and palpitations. Gastrointestinal: Positive for anal bleeding and blood in stool. Negative for abdominal pain and nausea. Genitourinary: Negative for inability to urinate. Musculoskeletal: Negative for back pain. Skin: Negative for itching. Neurological: Negative for headaches. OBJECTIVE Initial Vitals [05/05/19 2218] Temperature Pulse Rate Heart Rate Resp Rate Blood Pressure SpO2 36.7 ??C 89 -- 15 (!) 128/91 94 % Pain Score 8 PHYSICAL EXAMINATION Constitutional: He appears well-developed and well-nourished. HENT: Head: Atraumatic. Mouth/Throat: Mucous membranes are moist. Eyes: EOM are normal. Pupils are equal, round, and reactive to light. Neck: Normal range of motion. Neck supple. Cardiovascular: Normal rate and regular rhythm. Pulses are palpable. Capillary refill: takes less than 3 seconds, Pulmonary/Chest: Effort normal. There is normal air entry. He exhibits no retraction. Abdominal: Soft. He exhibits no distension. Musculoskeletal: Normal range of motion. He exhibits no deformity. Neurological: He is alert and oriented to person, place, and time. Skin: Skin is warm and normal color. Psychiatric: He has a normal mood and affect. Nursing note and vitals reviewed. ASSESSMENT/PLAN Impression and Plan 28-year-old male here with ongoing intermittent abdominal cramping and blood in stool. He is scheduled for a colonoscopy in 2 weeks. He came in this evening by consultation with the nursing line for evaluation. Fortunately he denies any symptoms of anemia with no dizziness lightheadedness chest pain or shortness of breath. He has nofever or chills. He has vitals that are normal on arrival. I suggested he contact his surgical team who will perform the endoscopy to inquire what bowel prep he should be taking prior to his colonoscopy and also sent a note to his team. I encouraged him to return if he does develop any symptoms of blood loss anemia specifically dizziness lightheadedness shortness of breath or chest pain.. Final Diagnoses: as of May 05 2235 Bleeding Rectal I personally performed the services described in this documentation, as scribed in my presence, and it is both accurate and complete. Ruperto Frazier M.D. 05/05/19 [id number] documented in this encounter Plan of Treatment Not on filedocumented as of this encounter Visit Diagnoses Diagnosis Bleeding Rectal - Primary documented in this encounter Additional Health Concerns Assessment Noted Time PHQ-9 Depression Total Score: 27 02/23/2019 3:12 PM CD T documented as of this encounter Care Teams Diving Board Assembler Relationship Specialty Start Date End Date Julian Santana M.D. PCP - General 05/13/17 [address] [place] [address] documented as of this encounter
--- OUTSIDE RECORDS SUMMARY | 2022-09-25 11:01 | XMS_ITS | Encounter Summary ---
:1990 Author Organization [facility] Address [address] [place] [address] Care Team Providers Name Role Phone Julian Santana M.D. Primary Care Provider Encounter Details Date Type Department Care Team Description 05/10/2019 Ancillary Procedure Department of Gastroenterology Social History Tobacco Use Types Packs/Day Years [...] Procedure Name Priority Date/Time Associated Comments Diagnosis GASTROENTEROLOGY IMAGE Routine 05/10/2019 3:00 Re sults for this EXAM PM CDT procedure are i n the results section. documented in this encounter Results Upper GI endoscopy-Gastroenterology Image Exam (05/10/2019 3:00 PM CDT) Specimen (Source) Anatomical Collection Method Collection Time Re ceived Time Location / / Volume Laterality 05/10/2019 2:59 PM CDT Narrative [facility] - 05/10/2019 3:18 PM CDT This order has been created and auto-finalized to support the import of images acquired without order. The clini shonda documentation to support these images can be found on the encounter la nena t produced images. Provider Not In System IMG NON RAD IMAGING PROCEDUR ES Performing Organization Address City/State/ZIP Code Phon e Number I[facility] NA documented in this encounter Visit Diagnoses Not on filedocumented in this encounter Additional Health Concerns Assessment Noted Time PHQ-9 Depression Total Score: 27 02/23/2019 3:12 PM CD T documented as of this encounter Care Teams Supervisor Estimator And Drafter Relationship Specialty Start Date End Date Julian Santana M.D. PCP - General 05/13/17 [address] [place] [phone] documented as of this encounter
--- OUTSIDE RECORDS SUMMARY | 2022-09-25 11:01 | XMS_ITS | Encounter Summary ---
:1990 Author Organization [facility] Address [address] [place] [address] Care Team Providers Name Role Phone Julian Santana M.D. Primary Care Provider Reason for Referral Outpatient (Routine) - Closed Specialty Diagnoses / Procedures Referred By Contact Refer red To Contact Emergency Medicine Diagnoses Bipolar I Disorder (HCC) Dependence Polysubstance (HCC) Wilman Mortensen [facility] PADMAJA Bullard M.D[facility] [address] [place] [address] Referral ID Status Reason Start Date Expiration Date Visits Requ ested Visits Authorized [id number] Closed 01/22/2019 01/22/2020 1 1 LING SOLUTION MAKER Reason for Visit Reason Comments Laceration Encounter Details Date Type Department Care Team Description 01/22/2019 Emergency [facility] Wilman Mortensen tion Foot Without Foreign Body Initial Right (Primary Dx); Aditya Evans M.D. Bipolar I Disorder (HCC); [address] [facility] [address] [place] [address] Dependence Polysubstance (HCC) [place] [phone] Social History Tobacco Use Types Packs/Day Years [...] Sign Reading Time Taken Comments Blood Pressure 136/86 01/22/2019 2:57 PM PICKLING SOLUTION MAKER Pulse 97 01/22/2019 2:57 PM PICKLING SOLUTION MAKER Temperature 36.8 ??C (98.2 ??F) 01/22/2019 2:57 PM PICKLING SOLUTION MAKER Respiratory Rate 18 01/22/2019 2:57 PM PICKLING SOLUTION MAKER Oxygen Saturation 94% 01/22/2019 2:57 PM PICKLING SOLUTION MAKER Inhaled Oxygen Concentration - - Weight - - Height 180.3 cm (5' 11) 01/22/2019 2:58 PM PICKLING SOLUTION [employer]KER Body Mass Index - - documented in this encounter Discharge Instructions Discharge InstructionsClWilman brennan M.D. - 01/22/2019 3:19 PM CST Leave glue and Steri-Strips alone let them fall off on their own. See provider if worry for infection. Follow up with primary care for mental health referral LING SOLUTION MAKER AttachmentsThe following attachments cannot be sent through Care Everywhere. Stitches Byers or Adhesive Wound Closure Bkti-fi-Iqyd (Chilean)Bipolar 1 Disorder (Chilean)Chemical Dependency (Chilean)documented in this encounter Medications at Time of Discharge Medication Sig Dispensed Refills Start Date End Date omeprazole (PriLOSEC) 20 Take 1 capsule (20 30 capsule 11 01/14/[address] capsule mg total) by mouth every morning before breakfast. documented as of this encounter Procedure Notes Wilman Mortensen M.D. - 01/22/2019 3:28 PM CSTAssociated Order(s): LACERATION REPAIR Procedure Laceration Repair Date/Time: 01/22/2019 3:35 PM Performed by: WILMAN MORTENSEN Authorized by: WILMAN MORTENSEN Pre-procedure details: Indication: laceration Location: Toe Toe location: Right big toe Length (cm): 2 Depth (mm): 3 Circulation distal to injury: capillary refill < 2 sec, warm and pink Movement distal to injury: normal Sensation distal to injury: normal Area cleansed with: Soap and water and chlorhexidine Irrigation solution: Sterile saline Irrigation volume (mL): 1000 Irrigation method: Pressure wash Foreign body imaging: None Sedation/Anesthesia (see MAR for exact dosages): Anesthesia method: None Procedure details: Repair type: Simple Limited defect created (wound extended): no Hemostasis achieved with: Direct pressure Wound exploration: wound explored through full range of motion and entire depth of wound probed andvisualized Wound extent: no fascia violation noted, no foreign bodies/material noted, no muscle damage noted, no nerve damage noted and no tendon damage noted Repair method: Steri-Strips and tissue adhesive Approximation: Close Post-procedure details: Procedure completed successfully: yes Tetanus status up to date: Up to date Dressing Applied: yes Dressing applied: Gauze dressing Wrapped with: Kerlix Circulation distal to injury: capillary refill < 2 sec, warm and pink Movement distal to injury: normal Sensation distal to injury: normal Complications: no immediate complications Wilman Mortensen M.D. 01/22/19 1538 [employer]ING SOLUTION [employer]KER documented in this encounter ED Notes Wilman Mortensen M.D. - 01/22/2019 3:22 PM CST SUBJECTIVE CHIEF COMPLAINT/REASON FOR VISIT Laceration HISTORY OF PRESENT ILLNESS Patient comes in with his brother. He stepped on a piece of glass and lacerated his right medial of foot. He he says the piece of glass was large he does not think it broke her caused foreign body. Last tetanus shot was about a year ago. Complains of this toe is always somewhat red and irritated I reviewed the records. He was just seen on the and was supposed to go to chemical dependency treatment. He was there for a day or 2 but left he said it was not helpful. He says today he has been able to be sober but realizes he needs to get back on his medications. No agitation homicidal or suicidal ideations today. His brother agrees and is supportive. Been several years since he took medications. REVIEW OF SYSTEMS Skin: Positive for wound. Allergic/Immunologic: Negative for immunocompromised state. Psychiatric/Behavioral: Positive for substance abuse. Negative for hallucinations and suicidal ideas. The patient is nervous/anxious. OBJECTIVE Initial Vitals [01/22/19 1457] Temperature Pulse Rate Heart Rate Resp Rate Blood Pressure SpO2 36.8 ??C 97 -- 18 136/86 94 % Pain Score 0 - No pain PHYSICAL EXAMINATION Constitutional: He appears well-developed and well-nourished. No distress. Skin: Both feet have great toenails which are trimmed too short and ingrown. The right foot is worse. There is slight erythema to the right IP joint with medial protrusion consistent with some but information. The nail cuticle is over groin but does not appear infected. On the lateral medial plantar surfaceof the foot lateral to the MTP joint a 2 cm laceration the majority of which is very superficial buton the proximal extent is a 0.5 cm that just barely goes through the skin into the subcutaneous tissue. On inspecting and probing my suspicion for foreign body is low. No active bleeding. He had ft is generally unkept Psychiatric: He has a normal mood and affect. His behavior is normal. Thought content normal. Nursing note and vitals reviewed. ASSESSMENT/PLAN Impression and Plan First regarding his foot, the laceration does penetrate the dermis. Discussed the possibility of foreign body patient wants to defer x-rays. Discussed options for repair. I would be hesitant to suture as I think it would increase infection risk. And option would be to do nothing but observe he would like something done therefore a reasonable compromise would be attempting Dermabond and Steri-Strips though this is not ideal in a weight-bearing area. If it does become infected will need to examined for foreign body. Discussed his toe care he has badly ingrown nails. He can try working out the cuticles and see if hecan get them to grow. There may be a bunion starting to form. He would benefit from wider shoes. With regard to his mental health issues he does not appear intoxicated and is calm and matter of fact now and has support from his brother. Will refer back to primary care to discuss all of these issues he would like to get back on his psychiatric medications.. Final Diagnoses: as of Jan 22 1522 Laceration Foot Without Foreign Body Initial Right Bipolar I Disorder (HCC) Dependence Polysubstance (HCC) Wilman Mortensen M.D. 01/22/19 1534 LING SOLUTION MAKER Hilda Howard R.N. - 01/22/2019 2:58 PM CST Pt reports lac to bottom of right foot this am. Pt states that he stepped on a broken piece of glass. Pt has aprox 3 cm lac that is not bleeding at this time. Denies change in felling. Cms intact. Hilda Howard R.N. 01/22/19 1459 LING SOLUTION MAKER documented in this encounter Plan of Treatment Scheduled Referrals Name Type Priority Associated Diagnoses Order S chedule POST ED VISIT Outpatient Referral Routine Bipolar I Disorder E xpected: Family Medicine ([facility]) 01/22/2019 Dependence (Approximate), Polysubstance (HCC) Expires: 01/22/2022 documented as of this encounter Procedures Procedure Name Priority Date/Time Associated Diagnosis Comme nts LACERATION REPAIR Routine 01/22/2019 3:28 PM Resu lts for this PICKLING SOLUTION MAKER procedure are i n the results section. documented in this encounter Results Laceration Repair (01/22/2019 3:28 PM PICKLING SOLUTION MAKER) Narrative Wilman Mortensen M.D. - 01/22/2019 3:2 8 PM PICKLING [employer]KER Wilman Mortensen M.D. ? 01/22/2019 ??3:38 PM Laceration Repair Date/Time: 01/22/2019 3:35 PM Performed by: WILMAN MORTENSEN Authorized by: WILMAN MORTENSEN Pre-procedure details: ??Indication: laceration ?Location: ??Toe ??Toe location: ??Right big toe ??Length (cm): ??2 ??Depth (mm): ??3 ??Circulation distal to injury: capilla ry refill < 2 sec, warm and pink ?Movement distal to injury: normal ?Sensation distal to injury: normal ?Area cleansed with: ??Soap and water and chlorhexidine ??Irrigation solution: ??Sterile saline ??Irrigation volume (mL): ??1000 ??Irrigation method: ??Pressure wash ??Foreign body imaging: ??None Sedation/Anesthesia (see MAR for exact d osages): ??Anesthesia method: ??None Procedure details: ??Repair type: ??Simple ??Limited defect created (wound extende d): no ?Hemostasis achieved with: ??Direct pr essure ??Wound exploration: wound explored thr ough full range of motion and entire depth of wound probed and visuali zed ?Wound extent: no fascia violation not ed, no foreign bodies/material noted, no muscle damage noted, no nerve damage noted and no tendon damage noted ?Repair method: ??Steri-Strips and tis matt adhesive ??Approximation: ??Close Post-procedure details: ??Procedure completed successfully: yes ?Tetanus status up to date: ??Up to da te ??Dressing Applied: yes ?Dressing applied: ??Gauze dressing ??Wrapped with: ??Kerlix ??Circulation distal to injury: capilla ry refill < 2 sec, warm and pink ?Movement distal to injury: normal ?Sensation distal to injury: normal ?Complications: no immediate complicat ions ?? Wilman Mortensen M.D. PROCEDURE/MINOR SURGICAL ORD ERABLES documented in this encounter Visit Diagnoses Diagnosis Laceration Foot Without Foreign Body Ini tial Right - Primary Bipolar I Disorder (HCC) Dependence Polysubstance (HCC) documented in this encounter Care Teams Pbx Teacher Relationship Specialty Start Date End Date Julian Santana M.D. PCP - General 05/13/17 [place] [address] documented as of this encounter
--- OUTSIDE RECORDS SUMMARY | 2022-09-25 11:01 | XMS_ITS | Encounter Summary ---
:1990 Author Organization [facility] Address [address] [place] [address] Care Team Providers Name Role Phone Julian [...] Associated Comments Diagnosis GASTROENTEROLOGY IMAGE Routine 05/10/2019 3:10 Re sults for this EXAM PM CDT procedure are i n the results section. documented in this encounter Results Colonoscopy-Gastroenterology Image Exam (05/10/2019 3:10 PM CDT) Specimen (Source) Anatomical Collection Method Collection Time Re ceived Time Location / / Volume Laterality 05/10/2019 3:09 PM CDT Narrative [facility] - 05/10/2019 3:50 PM CDT This order has been created [...] documented as of this encounter Care Teams Magnetizer Relationship Specialty Start Date End Date Julian Santana M.D. PCP - General 05/13/17 [address] [place] [address] documented as of this encounter
--- OUTSIDE RECORDS SUMMARY | 2022-09-25 11:01 | XMS_ITS | Encounter Summary ---
:1990 Author Organization [facility] Address [address] [place] [address] Care Team Providers Name Role Phone Julian Santana M.D. Primary Care Provider Reason for Visit Reason Onset Date Comments US results 02/14/2019 Encounter Details Date Type Department Care Team Description 02/14/2019 Clinical Communication Department of Kirsty Akers, results [facility], in [address] [address] [place], [place] [phone] [address] (Work) [phone] Social History Tobacco Use Types Packs/Day Years [...] this encounter Miscellaneous Notes Telephone Encounter - Carolyn Biswas LJacielP.NJaciel - 02/15/2019 9:17 AM CDT Patient reports he had already been informed of normal results and his guardian is also aware of results Telephone Encounter - Julian Santana M.D. - 02/14/2019 11:54 PM CDT Please read Ultrasound result note to him. Cyst is actually slightly smaller. No further workup or evaluation is needed. Telephone Encounter - Carolyn Biswas L.P.NJaciel - 02/14/2019 4:19 PM CDT Please review Ultra sound results. Thank you Telephone Encounter - Charity Ng - 02/14/2019 3:25 PM CDT John just got done having the US done in Radiology and would like a call back with the results. Thank you. documented in this encounter Plan of Treatment Not on filedocumented as of this encounter Visit Diagnoses Not on filedocumented in this encounter Additional Health Concerns Assessment Noted Time PHQ-9 Depression Total Score: 25 02/08/2019 2:45 PM CD T documented as of this encounter Care Teams Chemical Supervisor Relationship Specialty Start Date End Date Julian Santana M.D. PCP - General 05/13/17 [address] [place] [phone] documented as of this encounter
--- OUTSIDE RECORDS SUMMARY | 2022-09-25 11:01 | XMS_ITS | Encounter Summary ---
:1990 Author Organization [facility] Address [address] [place] [address] Care Team Providers Name Role Phone Julian Santana M.D. Primary Care Provider Encounter Details Date Type Department Care Team Description 02/14/2019 Hospital Encounter Department of Julian Santana, Cyst Epididymus Radiology in Marty Novak M.D. [address] [phone] Social History Tobacco Use Types Packs/Day [...] PM CDT documented as of this encounter Medications at Time of Discharge Medication Sig Dispensed Refills Start Date End Date omeprazole (PriLOSEC) 20 Take 1 capsule (20 30 capsule 11 01/14/[address] capsule mg total) by mouth every morning before breakfast. risperiDONE (RisperDAL) Take 1 tablet (1 mg 60 tablet 0 02/23/2019 1 mg tabletIndications: total) by mouth at Bipolar I Disorder (HCC) bedtime. OK to titrate up to 3 mg at bedtime risperiDONE (RisperDAL) Take 1 tablet (3 mg 30 tablet 0 05/02/2019 3 mg tablet total) by mouth at bedtime. documented as of this encounter Plan of Treatment Not on filedocumented as of this encounter Procedures Procedure Name Priority Date/Time Associated Comments Diagnosis US SCROTUM RAD - Routine 02/14/2019 3:31 Cyst Epididymus Results for this (most inpatients PM CDT procedure a re in and all the results outpatients) section. documented in this encounter Results US Scrotum (02/14/2019 3:31 PM CDT) Anatomical Region Laterality Modality Testes, Ultrasound RST LOS, Ultrasound ARZ LOS, Ultrasound F LA N/A Ultrasound LOS Specimen (Source) Anatomical Collection Method Collection Time Re ceived Time Location / / Volume Laterality 02/14/2019 3:34 PM CDT Impressions 02/14/2019 3:35 PM CDT IMPRESSION: 1. ??Right epididymal head cyst, slightl y decreased in size from previous exam. 2. ??Otherwise unremarkable scrotal ultr asound. Narrative 02/14/2019 3:35 PM CDT EXAM: US SCROTUM COMPARISON: 07/04/2016 FINDINGS: Right testicle: Normal size, echotexture , and blood flow pattern. No focal mass. Right testis volume: 19.1 cc Epididymis: Right epididymal head cyst m easures 1.4 x 1.4 x 1 cm. ??Previously measured 1.6 x 1.1 x 1.8 cm. Other: No hydrocele. No varicocele. Left testicle: Normal size, echotexture, and blood flow pattern. No focal mass. Left testis volume: 14.3 cc Epididymis: Normal. No mass or hyperemia . Other: No hydrocele. No varicocele. Procedure Note Chin Dave M.D. - 02/14/2019Formatti ng of this note might be different from the original. EXAM: US SCROTUM COMPARISON: 07/04/2016 FINDINGS: Right testicle: Normal size, echotexture , and blood flow pattern. No focal mass. Right testis volume: 19.1 cc Epididymis: Right epididymal head cyst m easures 1.4 x 1.4 x 1 cm. Previously measured 1.6 x 1.1 x 1.8 cm. Other: No hydrocele. No varicocele. Left testicle: Normal size, echotexture, and blood flow pattern. No focal mass. Left testis volume: 14.3 cc Epididymis: Normal. No mass or hyperemia . Other: No hydrocele. No varicocele. IMPRESSION: 1. Right epididymal head cyst, slightly decreased in size from previous exam. 2. Otherwise unremarkable scrotal ultras ound. Julian Santana M.D. IMG US PROCEDURES documented in this encounter Visit Diagnoses Diagnosis Cyst Epididymus documented in this encounter Additional Health Concerns Assessment Noted Time PHQ-9 Depression Total Score: 25 02/08/2019 2:45 PM CD T documented as of this encounter Care Teams Elevator Pilot Relationship Specialty Start Date End Date Julian Santana M.D. PCP - General 05/13/[address] [place] [phone] documented as of this encounter
--- OUTSIDE RECORDS SUMMARY | 2022-09-25 11:01 | XMS_ITS | Encounter Summary ---
:1990 Author Organization [facility] Address [address] [place] [address] Care Team Providers Name Role Phone Julian Santana M.D. Primary Care Provider Reason for Visit Reason Comments Eye Exam Appointment Request (Routine) - Closed Specialty Diagnoses / Procedures Referred By Contact Refer red To Contact Ophthalmology Referral ID Status Reason Start Date Expiration Date Visits Requ ested Visits Authorized [id number] Closed 05/24/2019 05/23/2020 1 1 Encounter Details Date Type Department Care Team Description 05/29/2019 Comprehensive Visit Department of Chinmay Amaya Screening Exam (Primary Dx); Ophthalmology in [facility] Stefano Donaldson [place], [place] [address] [place] [phone] Social History Tobacco Use Types Packs/Day Years [...] documented as of this encounter Progress Notes Sonny Amaya M.D., Ph.D. - 05/29/2019 9:30 AM CDT John Gavin was seen today for Eye Exam #1 Eye Conditions Screening Exam #2 Hyperopia Right Some blurring in vision in the right eye with minimal significant refraction found for any significant refractive air to be corrected with spectacles are by other means. Screening for an eye condition such as corneal edema as the patient had a fellow friend note a cloudiness and a ring around the cornea on the right side. None found patient reassured and alternative explanation was given as possible mucus discharge with allergic conjunctivitis patient will consider that consider topical antihistamine eye drops. documented in this encounter Plan of Treatment Not on filedocumented as of this encounter Visit Diagnoses Diagnosis Eye Conditions Screening Exam - Primary Hyperopia Right documented in this encounter Additional Health Concerns Assessment Noted Time PHQ-9 Depression Total Score: 27 02/23/2019 3:12 PM CD T documented as of this encounter Care Teams Mill Platform Supervisor Relationship Specialty Start Date End Date Julian Santana M.D. PCP - General 05/13/17 [address] [place] [phone] documented as of this encounter
--- OUTSIDE RECORDS SUMMARY | 2022-09-25 11:01 | XMS_ITS | Encounter Summary ---
:1990 Author Organization [facility] Address [address] [place] [address] Care Team Providers Name Role Phone Julian Santana M.D. Primary Care Provider Reason for Visit Reason Onset Date Comments Communication 01/23/2019 ER follow up Encounter Details Date Type Department Care Team Description 01/23/2019 Clinical Department of Julian Santana (ER Communication Family MedicineChai M.D. follow up) [facility], [address] [place] [phone] [place], [place] [phone] (Work) [phone] Social History Tobacco Use Types Packs/Day Years [...] Telephone Encounter - Julian Santana M.D. - 01/23/2019 1:45 PM CST OK time. PRODUCER Telephone Encounter - Salma Agustin - 01/23/2019 1:20 PM CST John Everett needs to be seen for an ER follow up and Dr. Santana's schedule was a little booked for thenext 2 weeks. An appointment has been scheduled for 9 am on 01/26. Please have Dr. Santana review if that is an ok time-frame on that date. If not, please let me know and I will call back to reschedule the appointment. Thank you. PRODUCER documented in this encounter Plan of Treatment Not on filedocumented as of this encounter Visit Diagnoses Not on filedocumented in this encounter Care Teams Plastic Finisher Relationship Specialty Start Date End Date Julian Santana M.D. PCP - General 05/13/17 [address] [place] [phone] documented as of this encounter
--- OUTSIDE RECORDS SUMMARY | 2022-09-25 11:01 | XMS_ITS | Encounter Summary ---
:1990 Author Organization [facility] Address [address] [place] [address] Care Team Providers Name Role Phone Julian Santana M.D. Primary Care Provider Encounter Details Date Type Department Care Team Description 05/10/2019 Surgery Department of Regan Hernandez ESOPHAGOGACole TRODUODENOSCOPY Gastroenterology in Marty Reardon M.D. [address] [phone] Social History Tobacco Use Types Packs/Day Years [...] documented as of this encounter Procedure Notes Regan Hernandez M.D. - 05/10/2019 3:09 PM CDTAssociated Order(s): COLONOSCOPY [facility] Patient Name: John Gaivn Procedure Date: 05/10/2019 3:09 PM Date of : 1990 Age: 28 Gender: Male Procedure: Colonoscopy Providers: Regan Newman (Ordering Provider) Referring Provider: Regan Hernandez Pre-op Diagnoses: Chronic diarrhea, Melena Post-op [...] bowel preparation was evaluated using the BBPS ([place] Bowel Preparation Scale) with scores of: Right [...] of pulmonary ventilation, and response to care. Regan Hernandez, 05/10/2019 3:37:28 PM This report has been signed electronically. Number of Addenda: 0 Note Initiated On: 05/10/2019 3:09 PM Regan Hernandez M.D. - 05/10/2019 2:59 PM CDTAssociated Order(s): UPPER GI ENDOSCOPY [facility] Patient Name: John Gavin Procedure Date: 05/10/2019 2:59 PM Date of : 1990 Age: 28 Gender: Male Procedure: Upper GI endoscopy Providers: Regan Newman (Ordering Provider) Referring Provider: Regan Hernandez Pre-op Diagnoses: Melena, Nausea with vomiting [...] of pulmonary ventilation, and response to care. Regan Hernandez, 05/10/2019 3:08:00 PM This report has [...] are i n the results section. ESOPHAGOGASTRODUODENOSCOPY Hemat emesis Blood In Stool Case Notes not done documented in this encounter Results COLONOSCOPY (05/10/2019 3:09 PM CDT) Specimen (Source) Anatomical Location Collection Method / Collectio n Time Received Time / Laterality Volume Narrative This result has an attachment that is no t available. Procedure Note Regan Hernandez M.D. - 05/10/2019 3:0 9 PM CDT [facility] Patient Name: John Gavin Procedure Date: 05/10/2019 3:09 PM Date of : 1990 Age: 28 Gender: Male Procedure: Colonoscopy Providers: Regan Newman (Ordering Provider) Referring Provider: Regan Hernandez Pre-op Diagnoses: Chronic diarrhea, Marlon na [...] preparat ion was evaluated using the BBPS ([place] Bowel Preparation Scale) with scores of: Right [...] of pulmonary ventilation, and response to care. Regan Hernandez, 05/10/2019 3:37:28 PM This report has been signed electronical ly. Number of Addenda: 0 Note Initiated On: 05/10/2019 3:09 PM Regan Hernandez M.D. GI PROCEDURE ORDERABLES Pathology Services (05/10/2019 3:02 PM CDT) Component Value Ref Test Analysis Performed At [facility] Range Method Time Signature PATHOLOGY Patient Name: JOHN GAVIN [facility] MR#: [id number] [facility] Submitting Physician: REGAN HERNANDEZ MD [id number] Specimen #[id number] Performing Lab: ??[facility] ? [address] [place] [id number] Source: A: Stomach biopsy-R/O Heliocbacter pylori B: [...] (Colon) 05/10/2019 3:18 PM CDT Comment: ileitis Regan Hernandez M.D. LAB SURG PATH ORDERABLES Performing Organization Address City/State/ZIP Code Phon e Number COPATH [address] [address] UPPER GI ENDOSCOPY (05/10/2019 2:59 PM CDT) Specimen (Source) Anatomical Location Collection Method / Collectio n Time Received Time / Laterality Volume Narrative This result has an attachment that is no t available. Procedure Note Regan Hernandez M.D. - 05/10/2019 2:5 9 PM CDT [facility] Patient Name: John Gavin Procedure Date: 05/10/2019 2:59 PM Date of : 1990 Age: 28 Gender: Male Procedure: Upper GI endoscopy Providers: Regan Newman (Ordering Provider) Referring Provider: Regan Hernandez Pre-op Diagnoses: Melena, Nausea with vo miting Post-op Diagnoses: - Normal esophagus. - Normal stomach. Biopsied. - Normal examined duodenum. Recommendation: - Await pathology results. - Will proceed with colonoscopy as willis duled. Findings: The esophagus was normal. The [...] of pulmonary ventilation, and response to care. Regan Hernandez, 05/10/2019 3:08:00 PM This report has been signed electronical ly. Number of Addenda: 0 Note Initiated On: 05/10/2019 2:59 PM Regan Hernandez M.D. GI PROCEDURE ORDERABLES documented in this encounter Visit Diagnoses Diagnosis Hematemesis Blood In Stool documented in this encounter Admitting Diagnoses Diagnosis Hematemesis [...] (Rate/Dose Verify - Provider: Adelfo Barker APRN, KNUCKLE BENDER)1525 (Anesthesia Volume Adjustment - Provider: Adelfo Barker APRN, KNUCKLE BENDER) 100 mL/hr, intravenous, at 100 mL/hr, Co [...] documented as of this encounter Care Teams County Surveyor Relationship Specialty Start Date End Date Julian Santana M.D. PCP - General 05/13/17 [place] [phone] documented as of this encounter
--- OUTSIDE RECORDS SUMMARY | 2022-09-25 11:01 | XMS_ITS | Encounter Summary ---
:1990 Author Organization [facility] Address [address] [place] [address] Care Team Providers Name Role Phone Julian Santana M.D. Primary Care Provider Encounter Details Date Type Department Care Team Description 05/10/2019 Surgery Department of Gastroenterology Christel Hernandez, [place] [address] [employer] [facility] [address] [place] [address] [place], [place] [phone] (Wo rk) Social History Tobacco Use [...] Sign Reading Time Taken Comments Blood Pressure 104/71 05/10/2019 1:26 PM CDT Pulse 66 05/10/2019 1:26 PM CDT Temperature 36.3 ??C (97.3 ??F) 05/10/2019 1:26 PM CDT Respiratory Rate 16 05/10/2019 1:26 PM CDT Oxygen Saturation 97% 05/10/2019 1:26 PM CDT Inhaled Oxygen Concentration - - [...] - 05/10/2019 3:09 PM CDTAssociated Order(s): COLONOSCOPY [facility] [place] [facility] Patient Name: John Gavin Procedure Date: [...] bowel preparation was evaluated using the BBPS ([place] Bowel Preparation Scale) with scores of: Right [...] 2:59 PM CDTAssociated Order(s): UPPER GI ENDOSCOPY [facility] [place] [facility] Patient Name: John Gavin Procedure Date: 05/10/2019 2:59 PM Date of : 1990 Age: 28 Gender: Male Procedure: Upper GI endoscopy Providers: Regan eNwman (Ordering Provider) Referring Provider: Regan Hernandez Pre-op [...] 2:53 Blood In Stool PM CDT Hematemesis documented in this encounter Results COLONOSCOPY (05/10/2019 3:09 PM CDT) Specimen (Source) Anatomical Location Collection Method / Collectio n Time Received Time / Laterality Volume Narrative This result has an attachment that is no t available. Procedure Note Regan Hernandez M.D. - 05/10/2019 3:[address] [facility] [place] [facility] Patient Name: John Gavin Procedure Date: [...] preparat ion was evaluated using the BBPS ([place] Bowel Preparation Scale) with scores of: Right [...] Component Value Ref Test Analysis Performed At [facility] Range Method Time Signature PATHOLOGY Patient Name: JOHN GAVIN [facility] MR#: [id number] [facility] Submitting Physician: REGAN HERNANDEZ MD [id number] Specimen #[id number] Performing Lab: ??[facility] ? [address] [place] [id number] Source: A: Stomach biopsy-R/O Heliocbacter pylori B: [...] Address City/State/ZIP Code Phon e Number [facility] [address] [address] UPPER GI ENDOSCOPY (05/10/2019 2:59 PM CDT) Specimen (Source) Anatomical Location Collection Method / Collectio n Time Received Time / Laterality Volume Narrative This result has an attachment that is no t available. Procedure Note Regan Hernandez M.D. - 05/10/2019 2:[address] [facility] Patient Name: John Gavin Procedure Date: 05/10/2019 2:59 PM Date of : 1990 Age: 28 Gender: Male Procedure: Upper GI endoscopy Providers: Regan Hernandez, Regan Hernandez (Ordering Provider) Referring Provider: Regan Hernandez Pre-op [...] documented in this encounter Visit Diagnoses Diagnosis Blood In Stool Hematemesis documented in this encounter Admitting Diagnoses Diagnosis [...] (Rate/Dose Verify - Provider: Adelfo Barker APRN, IMMIGRATION SPECIALIST)1525 (Anesthesia Volume Adjustment - Provider: Adelfo Barker [...] documented as of this encounter Care Teams Freight Conductor Relationship Specialty Start Date End Date Julian Santana M.D. PCP - General 05/13/17 [address] [place] [phone] documented as of this encounter
--- OUTSIDE RECORDS SUMMARY | 2022-09-25 11:01 | XMS_ITS | Encounter Summary ---
:1990 Author Organization [facility] Address [address] [place] [address] Care Team Providers Name Role Phone Julian Santana M.D. Primary Care Provider Reason for Referral Outpatient (Routine) - Closed Specialty Diagnoses / Referred By Contact Referred To Procedures Contact Gastroenterology and Diagnoses Hematemesis Blood In Stool Julian Santana [facility] Hepatology M.DJaciel [address] [place] [address] Referral ID Status Reason Start Date Expiration Date Visits V isits Requested Authorized [id number] Closed Specialty 02/08/2019 02/08/2020 1 1 Services Required Outpatient (Routine) - Closed Specialty Diagnoses / Procedures Referred By Contact Refer marty To Contact Psychiatry Diagnoses Bipolar I Disorder (HCC) Julian Santana M.D. [address] [place] [address] Referral ID Status Reason Start Date Expiration Visits Visits Date Requested Authorized [id number] Closed Continuity of 02/08/2019 02/08/2020 1 1 Care Behavioral Health (Routine) - Closed Specialty Diagnoses / Procedures Referred By Contact Refer red To Contact Psychiatry / Psychiatry Diagnoses Bipolar I Disorder (HCC) Julian Santana [facility] and Psychology M.DJaciel [address] [place] [address] Referral ID Status Reason Start Date Expiration Date Visits Requ ested Visits Authorized [id number] Closed 02/08/2019 02/08/2020 1 1 Reason for Visit Reason Comments Follow-up from ER 01-14-19/Bipolar,Poly substance dependence Depression discuss GI Problem vomitting blood and stool is black Testicular Mass lump in testicle on right si de/re-evaluate Outpatient (Routine) - Closed Specialty Diagnoses / Procedures Referred By Contact Refer red To Contact Emergency Medicine Diagnoses Bipolar I Disorder (HCC) Dependence Polysubstance (HCC) Ruper[facility] Mortensen[facility] [address] [place] [address] Referral ID Status Reason Start Date Expiration Date Visits Requ ested Visits Authorized [id number] Closed 01/22/2019 01/22/2020 1 1 Encounter Details Date Type Department Care Team Description 02/08/2019 Office Visit Department of Julian Akers, Hem optysis (Primary Dx); Medicine, Marty Novak M.D. Bipolar I Disorder (HCC); Clinic, in [address] Dependence Polysubstance (HCC); [place], [place] Hematemesis; [address] [place] [phone] Blood In Stool; [place], [place] [phone] Cyst Epididymus ; [id number] (Work) Cyst Sebaceous [phone] Social History Tobacco Use Types Packs/Day Years [...] Sign Reading Time Taken Comments Blood Pressure 120/80 02/08/2019 10:00 AM CDT Pulse 96 02/08/2019 10:00 AM CDT Temperature 36.9 ??C (98.4 ??F) 02/08/2019 10:00 AM CDT Respiratory Rate - - Oxygen Saturation - - Inhaled Oxygen Concentration - - Weight 82.6 kg (182 lb 1.6 oz) 02/08/2019 10:00 AM CDT Height - - Body Mass Index 25.4 01/22/2019 2:58 PM FINANCIAL ANALYSIS CONSULTANT documented in this encounter Progress Notes Julian Santana M.D. - 02/08/2019 10:00 AM CDT SUBJECTIVE Chief Complaint Patient presents with ??? Follow-up from ER 01-14-19/Bipolar,Polysubstance dependence ??? Depression discuss ??? GI Problem vomitting blood and stool is black ??? Testicular Mass lump in testicle on right side/re-evaluate John Gavin is a 28 y.o. male who presents to the clinic for a follow up of his visitto the ED on 01/14/19 and evaluation of his medical issues, accompanied by his mother. Patient with history of polysubstance abuse presented to the ED 01/14/19 for a general medical examination. He had recently experienced an episode of vomiting, hemoptysis, melena, and complained of abdominal pain that had radiated into his groin. and was required to be medical cleared before admission in [place]. He has a history of substance abuse and planned to be admitted to a treatment center in [place] for methamphetamine abuse and was required to be medically evaluated before admission in [place]. Patient denied recent trauma, was not on blood thinners, and has no known GI diseases. Physical exam and lab workup was unremarkable. He was discharged that day without changes to his medication r egimen. Patient reports today that he has had issues with melena, hemoptysis, hematemesis, and heartburn forseveral months. He has taken omeprazole and his symptoms still persist, but he is not compliant withdaily use. He has not followed up with Gastroenterology. Patient last used methamphetamine a few days ago. He also uses marijuana, smokes cigarettes, and struggles with alcohol abuse, drinking up to 12-15 beers and 5- 10 shots once or twice a week. He has missed work due to drug and alcohol abuse. Patient denies issues with spending sprees or gambling. He left the [facility] due to concerns over others at the center using drugs. He is struggling with Bipolar I Disorder, which he was diagnosed with as a teenager, and has been feeling depressed and anxious. PHQ-9 score is 25 and АНДРЕЙ- 7 score is 21. Symptoms of depressesion include nearly every day of the following: having little interest in activities, feeling depressed, trouble sleeping, fatigue, poor appetite or overeating, feelings of failure, difficulty concentrating, moving slowly or being fidgety. He also reports several days of thoughts of self harm but has not made anyplans of suicide. He has not seen a psychiatrist since he was 21. Patient has been on risperidone inthe past which stabilized his symptoms. Symptoms of anxiety include nearly every day of the following: feeling anxious, not being able to stop worrying, worrying too much, trouble relaxing, restlessness, irritability, and fear of something awful happening. Patient has had a lump on his right testicle since he was a teenager. He had an ultrasound of his scrotum in 2016 which revealed a epididymal cyst 1.8 cm right epididymal cystal, which had slightly increased from prior ultrasound in 2008. He believes the lump has grown since the ultrasound. Patient has a small bump on his posterior head. He reports occasional shooting pain in his forehead that is relieved with pressure on the lump. Patient Active Problem List Diagnosis ??? Bipolar I Disorder (HCC) ??? Attention Deficit With Hyperactivity Disorder ??? Tic Disorder ??? Abuse Tobacco Smoking ??? Dependence Polysubstance (HCC) ??? Blood In Stool ??? Hemoptysis ??? Hematemesis Outpatient Medications Prior to Visit Medication Sig Dispense Refill ??? omeprazole (PriLOSEC) [address] capsule Take 1 capsule (20 mg total) by mouth every morning before breakfast. 30 capsule 11 No facility-administered medications prior to visit. Review of Systems A comprehensive review of systems is negative except for those items stated within the content of the HPI. Wt Readings from Last 3 Encounters: 02/08/19 82.6 kg 01/14/19 84.7 kg 08/13/18 76.7 kg The following portions of the patient's history were reviewed and updated as appropriate: allergies,current medications, family history, medical history, social history, surgical history and problem list. OBJECTIVE BP 120/80 Pulse 96 Temp 36.9 ??C (Temporal) Wt 82.6 kg BMI 25.40 kg/m?? GENERAL: Well-developed, well-nourished. HEENT: Normocephalic, atraumatic. Conjunctivae and lids are normal without erythema or discharge. Hearing grossly intact. DERM: Firm lump that is mobile present on his occipital scalp. NECK: Supple. Trachea midline. HEART: Normal S1, S2. Regular rate and rhythm. No murmurs or extra heart sounds. LUNGS: Normal effort. No respiratory distress. Clear to auscultation bilaterally. No expiratory wheeze. ABDOMEN: Left lower quadrant tenderness. MUSCULOSKELETAL: No peripheral edema, clubbing or cyanosis. NEUROLOGIC: Alert and oriented x3. Non-focal. PSYCHIATRIC: PHQ-9 score is 25, and АНДРЕЙ-7 score is 21. Mood is depressed and patient appears withdrawn. Flat affect. No visits with results within 1 Day(s) from this visit. Latest known visit with results is: Admission on 01/14/2019, Discharged on 01/14/2019 Component Date Value Ref Range Status ??? Hemoglobin 01/14/2019 16.3 13.2 - 16.6 g/dL Final ??? Hematocrit 01/14/2019 48.6 38.3 - 48.6 % Final ??? Erythrocytes 01/14/2019 5.33 4.35 - 5.65 x10(12)/L Final ??? MCV 01/14/2019 91.2 78.2 - 97.9 fL Final ??? RBC Distrib Width 01/14/2019 12.1 11.8 - 14.5 % Final ??? Platelet Count 01/14/2019 242 135 - 317 x10(9)/L Final ??? Leukocytes 01/14/2019 9.9* 3.4 - 9.6 x10(9)/L Final ??? Neutrophils 01/14/2019 7.75* 1.56 - 6.45 x10(9)/L Final ??? Lymphocytes 01/14/2019 1.42 0.95 - 3.07 x10(9)/L Final ??? Monocytes 01/14/2019 0.50 0.26 - 0.81 x10(9)/L Final ??? Eosinophils 01/14/2019 0.18 0.03 - 0.48 x10(9)/L Final ??? Basophils 01/14/2019 0.07 0.01 - 0.08 x10(9)/L Final ??? Potassium, P 01/14/2019 4.6 3.6 - 5.2 mmol/L Final ??? Sodium, P 01/14/2019 139 135 - 145 mmol/L Final ??? Chloride, P 01/14/2019 103 98 - 107 mmol/L Final ??? Bicarbonate, P 01/14/2019 27 22 - 29 mmol/L Final ??? Anion Gap, P 01/14/2019 9 7 - 15 Final ??? BUN, P 01/14/2019 15 8 - 24 mg/dL Final ??? Creatinine, P 01/14/2019 0.87 0.74 - 1.35 mg/dL Final ? ? eGFR Black 01/14/2019 >90 >=60 mL/min/BSA Final ? ? eGFR Non-Black 01/14/2019 >90 >=60 mL/min/BSA Final ??? Calcium, Total 01/14/2019 9.5 8.6 - 10.0 mg/dL Final ??? Glucose, P 01/14/2019 88 70 - 140 mg/dL Final ??? TSH, Sensitive, S 01/14/2019 0.4 0.3 - 4.2 mIU/L Final ??? White Blood Cells 01/14/2019 None Seen /hpf Final ??? Red Blood Cells 01/14/2019 None Seen 0 - 2 /hpf Final ??? Crystals 01/14/2019 Amorphous* None Seen /lpf Final ??? Source 01/14/2019 Midstream Final ??? Clarity 01/14/2019 Cloudy* Clear Final ??? Color 01/14/2019 Yellow Final ??? Blood 01/14/2019 Negative Negative Final ??? Nitrite, U 01/14/2019 Negative Negative Final ??? Leukocyte Esterase 01/14/2019 Negative Negative Final ??? Protein 01/14/2019 30* mg/dL Final ??? Glucose 01/14/2019 Negative Negative mg/dL Final ??? Ketone 01/14/2019 Negative Negative mg/dL Final ??? Bilirubin 01/14/2019 Negative Negative Final ??? pH 01/14/2019 7.0 5.0 - 8.0 Final ??? Specific [place] 01/14/2019 1.017 1.001 - 1.035 Final ??? Urobilinogen 01/14/2019 0.2 0.2 - 1.0 Final ASSESSMENT / PLAN 1. Bipolar I Disorder (HCC) - Not controlled. - POST ED VISIT Family Medicine - Psychiatry and Psychology - Integrated behavioral health consult (clinic); Future with Dr. [facility]. - External referral physician (non-[place]) at [facility] consult - risperiDONE (RisperDAL) 1 mg tablet; Take 1 tablet (1 mg total) by mouth at bedtime. OK to titrateup to 3 mg at bedtime Dispense: 60 tablet; Refill: 0 - Family Medicine office visit (clinic); Follow up in 2 weeks. 2. Dependence Polysubstance (HCC) - Patient still struggles with methamphetamine, marijuana, alcohol, and tobacco abuse. He admitted to treatment center in [place] within the past month but left. - He declines any treatment program currently. - POST ED VISIT Family Medicine 3. Hemoptysis - Further workup needed. - Recommended to use acetaminophen instead of ibuprofen. 4. Hematemesis - Further workup needed. Ongoing for months. - Recommended to use acetaminophen instead of ibuprofen - Gastroenterology and Hepatology - General consult (clinic); Future - EGD Case Request: ESOPHAGOGASTRODUODENOSCOPY - Continue omeprazole. 5. Blood In Stool - See #4. - He may need colonoscopy. 6. Cyst Epididymus - US in 2016 was normal but patient believes cyst has increased since. - US Scrotum; Future 7. Cyst Sebaceous - Otorhinolaryngology - General non-surgical consult (clinic); Future for excision of occipital scalp cyst. Scribed for Julian Santana M.D. by Bairon Quintero, on 02/08/2019, 11:08 AM. I personally performed the services described in this documentation, as scribed in my presence, and it is both accurate and complete. documented in this encounter Plan of Treatment Scheduled Referrals Name Type Priority Associated Order Schedule Diagnoses Psychiatry and Outpatient Routine Bipolar I Disorder Expecte d: Psychology - Integrated Referral (HCC) 01/27 behavioral health (Approxima te), consult (clinic) Expires: 02/08/2022 Gastroenterology and Outpatient Routine Hematemesis Expected: Hepatology - General Referral Blood In Stool 02/08 consult (clinic) (Approximat e), Expires: 02/08/2022 documented as of this encounter Results US Scrotum (02/14/2019 3:31 [...] documented in this encounter Visit Diagnoses Diagnosis Hemoptysis - Primary Bipolar I Disorder (HCC) Dependence Polysubstance (HCC) Hematemesis Blood In Stool Cyst Epididymus Cyst Sebaceous Cyst Epididymus documented in this encounter Additional Health Concerns Assessment Noted Time PHQ-9 Depression Total Score: 25 02/08/2019 2:45 PM CD T documented as of this encounter Care Teams Physical Chemistry Professor Relationship Specialty Start Date End Date Juilan Santana M.D. PCP - General 05/13/17 [address] [place] [phone] documented as of this encounter
--- OUTSIDE RECORDS SUMMARY | 2022-09-25 11:01 | XMS_ITS | Encounter Summary ---
:1990 Author Organization [facility] Address [address] [place] [address] Care Team Providers Name Role Phone Julian Santana M.D. Primary Care Provider Encounter Details Date Type Department Care Team Description 05/10/2019 Anesthesia Event Department of Adelfo Barker, [facility]astroenterology in [place], [place] [address] [facility] [address] [place] [phone] Anesthesia Record Procedure Summary Procedure Name Responsible Anesthesia Start Anesthesia Stop Anesthesiologist Time Time ESOPHAGOGASTRODUODENOSCOPY Adelfo Barker, HOUSEKEEPER NANNY, 05/10/19 145 4 05/10/19 1527 LATIN DANCE INSTRUCTOR Events Date Time Event Comment 05/10/2019 1430 1454 An Start Machine/Equipmen t Checked Infection Precautions Foll owed Procedure/Site Verified NPO Sta tus Verified Supine Standard ASA Mon itors Applied 1455 Turnover to Proceduralist 1524 Turnover to ANE Staff 1527 an stop data 1527 An End I completed my h andoff to the receiving staff during [facility] we 1. Identified the patient 2. Ident ified the responsible provider 3. Revi ewed the pertinent medical history 4. Discu ssed the surgical course 5. Reviewed intra-o p anesthesia management and issues during an esthesia 6. Set expectations for post-procedure period 7. Allowed opportun ity for questions and acknowledgement of understanding. Name Total midazolam PF injection 1 mg/mL 1 mg ketamine 10 mg/mL injection 30 mg propofol 10 mg/mL infusion 259.26 mg lidocaine 4% laryngotracheal solution 4 mL lidocaine 2% (mg) injection 60 mg lactated ringers 400 mL Agents No agents on file. Blood No blood administrations on file. Lines, Drains, and Airways Type Details Placement Removal Peripheral IV Placement Date: 04/28/18; 04/28/18 0217 by 05/10 1607 by Placement Time: 0217; Mila Ro R.N. Mea cham, Anne M, R.N. Catheter Size: 18 G; Orientation: Left; Location: Forearm; Site Prep: Chlorhexidine (Preferred); Insertion Attempts: 1; Removal Date: 05/10/19; Removal Time: 1607 Peripheral IV Placement Date: 06/08/18; 06/08/18 1029 by 05/10 1607 by Placement Time: 1029; Florence Rivera R.N. Mea cham, Anne M, R.N. Catheter Size: 18 G; Orientation: Right; Location: Antecubital; Site Prep: Chlorhexidine (Preferred); Technique: Anatomical landmarks; Insertion Attempts: 1; Removal Date: 05/10/19; Removal Time: 1607 Peripheral IV Placement Date: 05/10/19; 05/10/19 1330 by 05/10 1607 by Placement Time: 1330; Rosanna Elias R.N. Me acham, Anne M RAnna Catheter Size: 20 G; Orientation: Right; Site Prep: Chlorhexidine (Preferred); Technique: Anatomical landmarks; Insertion Attempts: 1; Removal Date: 05/10/19; Removal Time: 1607 documented in this encounter Social History Tobacco Use Types Packs/Day Years [...] PM CDT documented as of this encounter OR Notes Anesthesia Postprocedure Evaluation - Adelfo Barker APRN, LATIN DANCE INSTRUCTOR - 05/10/2019 3:30 PM CDT Patient: John Gavin Procedure Summary Date: 05/10/19 Room / Location: [facility] - [place] Anesthesia Start: 1454 Anesthesia Stop: 1527 Procedure: ESOPHAGOGASTRODUODENOSCOPY (N/A ) Diagnosis: Hematemesis Blood In Stool (Hematemesis [K92.0]) (Blood In Stool [K92.1]) Surgeon: Regan Juan M.D. Responsible Provider: Adelfo Barker APRN, CRNA Anesthesia Type: MAC ASA Status: Not recorded Anesthesia Type: MAC Last vitals Vitals Value Taken Time BP Temp Pulse Resp SpO2 Please reference Vitals flowsheet for most recent vital signs. Anesthesia Post Evaluation Patient Disposition: dismissal Cardiovascular status: hemodynamics (HR & BP) acceptable Respiratory status: patent airway with spontaneous effort Temperature: normothermic Oxygen requirements: room air Level of consciousness: sedated but awakens easily Pain score: pain adequately controlled and/or at baseline Post Op nausea/vomiting: none Hydration status: euvolemic Anesthesia Preprocedure Evaluation - Adelfo Barker APRN, CRNA - 05/10/2019 2:30 PM CDT Anesthesia Pre-Evaluation Pertinent components of the patient's history including current problem list, medical history, surgical history, family history, social history, medications and allergies were reviewed and updated as appropriate. The patient was examined and the Pre-op diagnosis, planned procedure, and H&P were reviewed and remain unchanged. PROBLEM LIST Relevant Problems Other (+) Abuse Tobacco Smoking (+) Dependence Polysubstance (HCC) OBJECTIVE PHYSICAL EXAMINATION Airway (HEENT) Mallampati: I TM Distance: >3 FB Neck ROM: Full Mouth Opening: >3 cm Cardiovascular Rhythm: Regular Rate: Normal Cardiovascular Assessment: cardiovascular normal Pulmonary Pulmonary Assessment: Clear Neurological Neurologic Assessment:??alert Dental Dental Assessment: dentition intact General / Constitutional Constitutional Assessment: Normal ASSESSMENT / PLAN ANESTHESIA PLAN ASA: 2 - Emergent Anesthesia Plan: MAC Patient seen and allergies reviewed; anesthesia plan and risks discussed directly with patient / legal guardian, or through an dynamics ax consultant; patient evaluated and approved for anesthesia / sedation. The use of blood products not discussed documented in this encounter Plan of Treatment Not on filedocumented as of this encounter Visit Diagnoses Not on filedocumented in this encounter Administered Medications Inactive Administered Medications - up to 3 most recent administrations Medication Order MAR Action Action Date Dose Rate Site ketamine injection (KETALAR) Given 05/10/2019 3:10 PM CDT 10 mg intravenous, As needed, Starting on Wed05/10/19 at 1457, Anesthesia Intra-op Given 05/10/2019 2:57 PM CDT 20 mg lactated ringers Rate/Dose Verify 05/10/2019 2:54 PM CDT 100 mL/hr, intravenous, Continuous, Starting on Wed05/10/19 at 1345, Pre-Op New Bag 05/10/2019 1:31 PM CDT 100 mL/hr 100 mL/hr lidocaine (PF) (cardiac) injection Given 05/10/2019 2:55 PM CDT 60 mg As needed, Starting on Wed05/10/19 at 1455, Anesthesia Intra-op lidocaine 4 % laryngotracheal solution Given 05/10/2019 2:57 PM CDT 4 mL (XYLOCAINE) transtracheal, As needed, Starting on Wed05/10/19 at 1457, Anesthesia Intra-op midazolam (PF) injection (VERSED) Given 05/10/2019 2:55 PM CDT 1 mg As needed, Starting on Wed05/10/19 at 1455, Anesthesia Intra-op propofol 10 mg/mL infusion New Bag 05/10/2019 2:58 100 mcg/kg/min 53.6 mL/hr (DIPRIVAN) PM CDT intravenous, Continuous Infusion: Per Instructions PRN, Starting on Wed05/10/19 at 1458, Anesthesia Intra-op documented in this encounter Additional Health Concerns Assessment Noted Time PHQ-9 Depression Total Score: 27 02/23/2019 3:12 PM CD T documented as of this encounter Care Teams Board Design Engineer Relationship Specialty Start Date End Date Julian Santana M.D. PCP - General 05/13/17 [place] [phone] documented as of this encounter
--- OUTSIDE RECORDS SUMMARY | 2022-09-25 11:01 | XMS_ITS | Encounter Summary ---
:1990 Author Organization [facility] Address [address] [place] [address] Care Team Providers Name Role Phone Julian Santana M.D. Primary Care Provider Encounter Details Date Type Department Care Team Description 05/10/2019 Anesthesia Event Department of [facility] in [place], [place] 70 [facility] [place] [id number] Anesthesia Record Procedure Summary Procedure Name Responsible Anesthesiologist Anesthesia Start Ti me Anesthesia Stop Time COLONOSCOPY Events Date Time Event Comment 05/10/2019 1352 1453 In Room 1458 Proc Start 1525 Proc Fin 1528 Out of Room 08/04/2019 1530 Case Cancelled No medications on file. Agents No agents on file. Blood No blood administrations on file. Lines, Drains, and Airways Type Details Placement Removal Peripheral IV Placement Date: 04/28/22; 04/28/22 1357 by Placement Time: 1357; See Laguna P, R.N. Catheter Size: 18 G; Orientation: Right; Location: Antecubital; Site Prep: Chlorhexidine (Preferred); Technique: Anatomical landmarks Peripheral IV Placement Date: 04/28/18; 04/28/18 0217 by 05/10 1607 by Placement Time: 0217; Mila Ro, R.N. Miracle Figueroa, R.NJaciel Catheter Size: 18 G; Orientation: Left; Location: Forearm; Site Prep: Chlorhexidine (Preferred); Insertion Attempts: 1; Removal Date: 05/10/19; Removal Time: 1607 Peripheral IV Placement Date: 06/08/18; 06/08/18 1029 by 05/10 1607 by Placement Time: 1029; Florence Rivera R.N. Mea cham, Anne M R.NJaciel Catheter Size: 18 G; Orientation: Right; Location: Antecubital; Site Prep: Chlorhexidine (Preferred); Technique: Anatomical landmarks; Insertion Attempts: 1; Removal Date: 05/10/19; Removal Time: 1607 Peripheral IV Placement Date: 05/10/19; 05/10/19 1330 by 05/10 1607 by Placement Time: 1330; Rosanna Elias R.N. Me acham, Anne M R.NJaciel Catheter Size: 20 G; Orientation: Right; Site Prep: Chlorhexidine (Preferred); Technique: Anatomical landmarks; Insertion Attempts: 1; Removal Date: 05/10/19; Removal Time: 1607 Peripheral IV Placement Date: 12/12/21; 12/12/21 182 by Anna, 12/12/21 193 by Placement Time: 1824; Tri Overton Doug B, Catheter Size: 18 G; R.N. Orientation: Left; Location: Antecubital; Site Prep: Chlorhexidine (Preferred); Technique: Anatomical landmarks; Insertion Attempts: 1; Removal Date: 12/12/21; Removal Time: 1936; Removal Reason: Per patient/family request documented in this encounter Social History Tobacco [...] as of this encounter OR Notes Anesthesia Preprocedure Evaluation - Siri Gtz M.D. - 05/10/2019 1:45 PM CDT Anesthesia Pre-Evaluation Pertinent components of the patient's history including current problem list, medical history, surgical history, family history, social history, medications and allergies were reviewed and updated as appropriate. The patient was examined and the Pre-op diagnosis, planned procedure, and H&P were reviewed and remain unchanged. PROBLEM LIST Relevant Problems Other (+) Abuse Tobacco Smoking (+) Attention Deficit With Hyperactivity Disorder (+) Bipolar I Disorder (HCC) (+) Dependence Polysubstance (HCC) OBJECTIVE PHYSICAL EXAMINATION Airway (HEENT) Mallampati: II TM Distance: >3 FB Neck ROM: Full Mouth Opening: >3 cm Cardiovascular Rhythm: Regular Rate: Normal Cardiovascular Assessment: cardiovascular normal Functional Capacity: >4 METS Pulmonary Pulmonary Assessment: Clear Neurological Normal Dental Normal General / Constitutional Normal ASSESSMENT / PLAN ANESTHESIA PLAN ASA: 2 Anesthesia Plan: MAC Patient seen and allergies reviewed; anesthesia plan and risks discussed directly with patient / legal guardian, or through an charger operator; patient evaluated and approved for anesthesia / sedation. The use of blood products not discussed documented in this encounter Plan of Treatment Not on filedocumented as of this encounter Visit Diagnoses Not on filedocumented in this encounter Additional Health Concerns Assessment Noted Time PHQ-9 Depression Total Score: 27 02/23/2019 3:12 PM CD T documented as of this encounter Care Teams Service Delivery Management Consultant Relationship Specialty Start Date End Date Julian Santana M.D. PCP - General 05/13/17 [address] [place] [address] documented as of this encounter
--- OUTSIDE RECORDS SUMMARY | 2022-09-25 11:01 | XMS_ITS | Encounter Summary ---
:1990 Author Organization [facility] Address [address] [place] [address] Care Team Providers Name Role Phone Julian Santana M.D. Primary Care Provider Reason for Visit Reason Comments Med Refill Encounter Details Date Type Department Care Team Description 03/10/2019 Refill Department of Family Medicine, Julian Erazo M.D. Med Refill [facility], in [facility] [address] [place] [address] [address] [facility] [place] [address] [phone] Social History Tobacco Use Types Packs/Day Years [...] Telephone Encounter - Julian Santana M.D. - 03/12/2019 9:26 PM CDT Dose adjustment. Discontinued by Dr. Londono. Telephone Encounter - Ashlie Rivera L.P.N. - 03/10/2019 10:38 AM CDT This was d/cd by Dr. Londono on 02/23/19, takes the 3mg dosage, I called [facility] and told them this, so please DECLINE this order and close,thank you Telephone Encounter - Amy Schmidt - 03/10/2019 8:09 AM CDT Nurse review: Unable to pend medication sent via [employer]; discrepancy in tablet strength Primary Provider: Julian Santana M.D. Name of medication: Risperidone Pharmacy: [facility] documented in this encounter Plan of Treatment Not on filedocumented as of this encounter Visit Diagnoses Diagnosis Bipolar I Disorder (HCC) documented in this encounter Additional Health Concerns Assessment Noted Time PHQ-9 Depression Total Score: 27 02/23/2019 3:12 PM CD T documented as of this encounter Care Teams Quill Layer Relationship Specialty Start Date End Date Julian Santana M.D. PCP - General 05/13/17 [address] [place] [address] documented as of this encounter
--- OUTSIDE RECORDS SUMMARY | 2022-09-25 11:02 | XMS_ITS | Encounter Summary ---
:1990 Author Organization [facility] Address [address] [place] [address] Care Team Providers Name Role Phone Unavailable Primary Care Provider Unavailable Encounter Details Date Type Department Care Team Description 04/07/2017 Hospital Encounter [facility] Tiara Rivas M.D. [address] [place] [phone] (Wo rk) Social History Tobacco Use Types Packs/Day Years Used Date Smoking Tobacco: Every Day Alcohol Habits Answer Date Recorded How often [...] Sign Reading Time Taken Comments Blood Pressure 110/70 04/07/2017 3:03 PM CDT Pulse 100 04/07/2017 3:03 PM CDT Temperature - - Respiratory Rate - - Oxygen Saturation - - Inhaled Oxygen Concentration - - Weight 74.7 kg (164 lb 10.9 oz) 04/07/2017 3:03 PM CDT Height 175 cm (5' 8.9) 04/07/2017 3:03 PM CDT Body Mass Index 24.39 04/07/2017 3:03 PM CDT documented in this encounter Progress Notes Reggie Rivas M.D. - 04/07/2017 3:05 PM CDT Cellulitis/paronychia CHIEF COMPLAINT/REASON FOR VISIT Concerns about infection in right hand middle finger HISTORY OF PRESENT ILLNESS Patient presents for discussion of right hand and middle finger pain, redness of moderate severity for the past couple of days. Patient describes the symptoms as painful with movement and he noticed some pus coming from under his nail. Symptoms are worsening. Patient denies any other aggravating or alleviating factors or associated symptoms. Treatments used so far include: none. He just had recent surgery on this hand last month with Dr. Arevalo to remove glass. He denies any fevers or nausea. MEDICATIONS No active medications ALLERGIES azithromycin (Hives) doxycycline (Nausea & vomiting) PAST MEDICAL HISTORY Chronic Abuse Tobacco Smoking NOS Attention Deficit Disorder of Childhood with Hyperactivity Bipolar I Disorder, Most Recent Episode (Or Current) Unspecified Constipation, Unspecified Headache Tic Disorder, Unspecified Unspecified Sleep Disturbance Historical No historical problems PROCEDURES/SURGICAL HISTORY Debridement (03/12/2017), Cystourethroscopy (06/22/2003), Tonsillectomy (10/31/1997), Cystoscopy, ureteral meatotomy (07/18/1997), Adenoidectomy (05/05/1996), Repair, Laceration (R) hand 5th finger (03/23/1996), Myringotomy w tubes, right (05/21/1995), Repair inguinal hernia, right (03/13/1994), Circumcision. SOCIAL HISTORY No Data Available FAMILY HISTORY Mother:Positive: Asthma; History of - migraine Father ( at 0 year(s)):Positive: Asthma; Depression; Mental illness; Suicide Brother:Positive: Asthma Grandmother (maternal):Positive: Cataract Uncle (maternal):Positive: Glaucoma Grandmother (paternal):Positive: Heart murmur; History of - migraine; Hypertension; Myocardial infarction Grandfather (paternal):Positive: Emphysema of lung SYSTEMS REVIEW GENERAL: no weight gain, no weight loss, no fever in past month, no chills, no sweats, no fatigue PULMONARY: no short of breath, no cough, no wheezing, no sputum, no hemoptysis CARDIAC: no valve problems, no chest pain, no chest pressure, no rapid beating, no irregular beating, no dependent edema, pain in calves or with walking, no difficulty moving arms and legs GI: no heartburn, no nausea, no vomiting, no stomach trouble, no constipation, no diarrhea, no blood in BMs, no change in BMs Musculoskeletal: as above. VITAL SIGNS T: 36.7 ??C (Core) HR: 100 BP: 110 / 70 HT: 175 cm WT: 74.7 kg BMI: 24.39 PHYSICAL EXAMINATION GENERAL: Patient is in no distress. Capable of full communication without difficulty. Patient is polite and cooperative. Appropriately dressed and normal hygiene. HEART: Regular rate and rhythm. No murmurs, gallops or rubs noted. LUNGS: Clear to auscultation bilaterally. No expiratory wheeze. No accessory muscles of respirationnoted. ABDOMEN: Nontender to palpation. No hepato-splenomegaly. No mass. Normal bowel sounds in all 4 quadrants. Skin: no rashes, skin is warm with erythema, unroofed blisters on the dorsal aspect, white pus coming from under his right middle finger. No ecchymosis. Some decreased sensation of his finger and decreased range of motion of that finger. He has pain with palpation of the dorsal aspect of his middle finger right hand. He also has some swelling and pain near the incision site on the palmar aspect of his hand. Musculoskeletal: see above. IMPRESSION/REPORT/PLAN Cellulitis Finger R New problem. Start Keflex. Follow up with Orthopedics this week for recheck, especially with his recent surgery, to make certain this doesn't affect his flexor tendon or need a washout of this area. Ordered: cephalexin, 500 mg = 1 cap(s), PO, 4xDay, x 10 day(s), # 40 cap(s), 0 Refill(s), Acute, Pharmacy: [id number] Electronically Signed By: REGGIE RIVAS MD On: 04/08/2017 09:22 AM Source: [facility] Document Id: [id number] documented in this encounter Miscellaneous Notes Miscellaneous - Reggie Rivas M.D. - 04/07/2017 3:28 PM CDT Ambulatory Patient Summary [facility] [address], [address] [place] [id number] Visit Information Name: JOHN GAVINJAYNA [facility] Number: [id number] Current Date: 04/07/2017 15:28:36 Physicians Attending Provider: REGGIE RIVAS MD Primary Care Provider: REGGIE RIVAS MD JOHN GAIVN SYLVESTER has been given the following list of follow-up instructions, medicationlist, and patient education materials: Follow-up Instructions Your Medications Here is a list of your medications. It is important to take your medications as directed. Use a pillbox or chart to help remind you to take your medications. Please let your doctor or nurse know if you have problems taking your medications. Medication/Strength How to Take Indications/Special Instructions/Comments/Notes for Patient Medication Changes/Routing cephalexin (cephalexin 500 mg oral capsule) 1 cap, Oral, four times a day x 10 day(s) New Routed to [facility] [place] [address] Stop Taking the Following Medications: Medication list as of 04-07-17 15:28 Attention: If you have any medications at home that are not on this list, DO NOT take them until youcontact your provider for clarification. Give a copy of your medication list to your primary care provider. Update your medication list any time medications or doses are changed and carry your medication list at all times in case of emergency. Electronically Signed By: REGGIE RIVAS MD Signed On:07-APR-2017 15:28:30 Your Allergies & Intolerances Substance Reaction Symptoms Category Comments doxycycline Nausea & vomiting Drug azithromycin Hives Drug Your Problem List Problem Status Onset Comments Headache Active 06/08/2001 02/24/14 Headache Attention Deficit Disorder of Childhood with Hyperactivity Active 06/08/2001 02/24/14 Attention deficit disorder with hyperactivity Tic Disorder, Unspecified Active 07/20/2002 02/24/14 Tic disorder, unspecified Unspecified Sleep Disturbance Active 07/04/2003 02/24/14 Sleep disturbance, unspecified Constipation, Unspecified Active 03/12/2004 02/24/14 Unspecified constipation Bipolar I Disorder, Most Recent Episode (Or Current) Unspecified Active 01/07/2006 02/24/14 Bipolar I disorder, most recent episode (or current) unspecified Abuse Tobacco Smoking NOS Active Your Upcoming Appointments Date Time Location Provider No Appointments found Attention: Contact your local Clinic if further appointment detail needed. Consider Using Patient Online Services Patient Online Services is a secure online and Mobile application that lets you: ?? View lab and test results ?? View portions of your medical record including clinical notes, immunizations and discharge summaries ?? Request an appointment or medication refill ?? Review your appointment schedule ?? Send secure messages to your care team Its easy to create an account if you dont have one. Go to [email or web address] and click on Create Your Account. Then, follow the directions to complete the online form. Youll be asked for your [facility] number which you can find at the top of this document. Your Goals/Additional instructions: Source: [facility] Document Id: [id number] Miscellaneous - Reggie Rivas M.D. - 04/07/2017 3:28 PM CDT Ambulatory Discharge Medication List [facility] [address], [address] [place] [id number] Visit Information Name: JOHN GAVIN SYLVESTER [facility] Number: [id number] Current Date: 04/07/2017 15:28:35 Attending Provider: REGGIE RIVAS MD Primary Care Provider: REGGIE RIVAS MD JOHN GAVIN has been given the following list of medications: Your Medications It is important to take your medications as directed. Use a pill box or chart to help remind you to take your medications. Please let your doctor or nurse know if you have problems taking your medications. Medication/Strength How to Take Indications/Special Instructions/Comments/Notes for Patient Medication Changes/Routing cephalexin (cephalexin 500 mg oral capsule) 1 cap, Oral, four times a day x 10 day(s) New Routed to [address] [id number] Stop Taking the Following Medications: Medication list as of 04-07-17 15:28 Attention: If you have any medications at home that are not on this list, DO NOT take them until youcontact your provider for clarification. Give a copy of your medication list to your primary care provider. Update your medication list any time medications or doses are changed and carry your medication list at all times in case of emergency. Electronically Signed By: REGGIE RIVAS MD Signed On:07-APR-2017 15:28:30 Additional Information: Source: [facility] Document Id: [id number] Miscellaneous - Carolyn Montelongo L.PJacielNJaciel - 04/07/2017 3:03 PM CDT Adult Imaging Assistant Intake/History Adult Imaging Assistant Intake/History Entered On: 04/07/2017 15:04 CDT Performed On: 04/07/2017 15:03 CDT by CAROLYN MONTELONGO LPN Intake Chief Complaint : Concerns about infection in right hand middle finger Temperature Core : 36.7 DegC(Converted to: 98.1 DegF) Peripheral Pulse Rate : 100 /min Systolic Blood Pressure : 110 mmHg Diastolic Blood Pressure : 70 mmHg NIBP Mean : 83 mmHg Blood Pressure Cuff Size : Regular Actual Weight : 74.7 kg(Converted to: 164 lb 11 oz) Dosing Weight Clinic : 74.7 kg Clinic BSA : 1.91 Body Mass Index : 24.39 kg/m2 CAROLYN MONTELONGO LPN - 04/07/2017 15:08 CDT BP Location : Left upper extremity Height : 175 cm(Converted to: 5 ft 9 inch(es), 69 inch(es)) Weight Source : Standing scale CAROLYN MONTELONGO LPN - 04/07/2017 15:03 CDT General Info Information Given By : Patient Preferred Communication Mode : Verbal Languages : Yi Is Patient Female and 13-50 no hysterectomy : No CAROLYN MONTELONGO LPN - 04/07/2017 15:03 CDT Subjective Pain Symptoms : No CAROLYN MONTELONGO LPN - 04/07/2017 15:08 CDT Dependent Habits Smoking Status : Current every day smoker Tobacco 2A : Yes Tobacco Use/Currently Using : Yes Tobacco Use/Last 30 Days : Yes Tobacco Use/Last 12 months : Yes Type : Cigarettes: 31-40 per day Tobacco Use/Advised to Quit : Yes CAROLYN MONTELONGO LPN - 04/07/2017 15:08 CDT Exposure to Tobacco Smoke : Patient smokes CAROLYN MONTELONGO LPN - 04/07/2017 15:03 CDT Recreational Drug Use Grid Drug Use : None CAROLYN MONTELONGO LPN - 04/07/2017 15:03 CDT Source: [facility] Document Id: [id number]!35 Miscellaneous - Carolyn Montelongo LJacielP.NJaciel - 04/07/2017 3:03 PM CDT Health Assessment Health Assessment Entered On: 04/07/2017 15:04 CDT Performed On: 04/07/2017 15:03 CDT by CAROLYN MONTELONGO LPN Health Assessment Complete Health Assessment Complete or Modified : Annual Health Assessment Annual Health Assessment Completed : Yes CAROLYN MONTELONGO LPN - 04/07/2017 15:03 CDT Nutrition Nutrition Risk Factors by History Adult : None CAROLYN MONTELONGO LPN - 04/07/2017 15:03 CDT Functional Current Daily Living Assistance : None CAROLYN MONTELONGO LPN - 04/07/2017 15:03 CDT Dependent Habits Smoking Status : Current every day smoker Tobacco 2A : Yes Tobacco Use/Currently Using : Yes Tobacco Use/Last 30 Days : Yes Tobacco Use/Last 12 months : Yes Type : Cigarettes: 31-40 per day Tobacco Use/Advised to Quit : Yes Alcohol Use : No CAROLYN MONTELONGO LPN - 04/07/2017 15:12 CDT Exposure to Tobacco Smoke : Patient smokes CAROLYN MONTELONGO LPN - 04/07/2017 15:03 CDT Recreational Drug Use Grid Drug Use : None CAROLYN MONTELONGO LPN - 04/07/2017 15:03 CDT Psychosocial Domestic Abuse Concerns : None Marital Status : Single Behavioral Health Screen/Safety Assmt : No Nondenominational Preference : Unknown CAROLYN MONTELONGO LPN - 04/07/2017 15:03 CDT Advance Directive Advanced Directives : No Advance Directive Additional Information : No CAROLYN MONTELONGO LPN - 04/07/2017 15:03 CDT Educ Needs Learning Style Preference Adult Grid Patient : None Family : None CAROLYN MONTELONGO LPN - 04/07/2017 15:03 CDT Source: [facility] Document Id: [id number] CDT!33 documented in this encounter Plan of Treatment Not on filedocumented as of this encounter Visit Diagnoses Not on filedocumented in this encounter
--- OUTSIDE RECORDS SUMMARY | 2022-09-25 11:02 | XMS_ITS | Encounter Summary ---
:1990 Author Organization [facility] Address [address] [place] [address] Care Team Providers Name Role Phone Unavailable Primary Care Provider Unavailable Encounter Details Date Type Department Care Team Description 04/21/2016 Hospital Encounter HX [facility] ED Rocky Thomas D.O. [address] [place] [address] [phone] (Wo rk) Social History Tobacco Use Types Packs/Day Years Used Date Smoking Tobacco: Never Assessed Alcohol Habits Answer Date Recorded How often [...] Reading Time Taken Comments Blood Pressure 111/64 04/21/2016 11:06 PM CDT Pulse 90 04/21/2016 11:06 PM CDT Temperature - - Respiratory Rate 16 04/21/2016 11:06 PM CDT Oxygen Saturation - - Inhaled Oxygen Concentration - - Weight - - Height 180.3 cm (5' 11) 04/21/2016 11:06 PM CDT Body Mass Index - - documented in this encounter Discharge Summaries Regina Person R.N. - 04/21/2016 11:07 PM CDT ED Discharge Instructions [facility] [address] [place] [address] Name: JOHN GAVIN Date of : 1990 12:00 AM Visit Date: 04/21/2016 8:48 PM [facility] Number: [id number] Address: [address] [place], [place] [address]E [place] [id number] Primary Care Provider: REGGIE RIVAS MD IMPORTANT: [facility] in [place] would like to thank you for allowing us to assist you with your healthcare needs. The following includes patient education materials and information regarding your injury/illness. Diagnosis: Injury Shoulder Initial R Follow-Up Instructions: With: Address: When: ANNETTE ULRICH [address] [place] [phone] Business (1) Within As Needed With: Address: When: REGGIE ROB [address] [place] [phone] Business (3) Within As Needed Your Upcoming Appointments: Date Time Location Provider No Appointments found Patient Education Materials: Parts of the Shoulder The shoulder is the most flexible part of the body. The main joint in the shoulder is called the glenohumeral joint. This is where the arm bone (humerus) rests in a shallow socket called the glenoid. The bones in the shoulder are connected by ligaments, muscles, and other strong tissues. When the shoulder is healthy, you can move your arm in almost any direction (a full range of motion). ?? [id number] [place] [address]. All rights reserved. This information is not intended as a substitute for professional medical care. Always follow your healthcare professional's instructions. Consider Using Patient Online Services Patient Online [...] if you dont have one. Go to [email or web address] and click on Create Your Account. Then, follow the directions to complete the online form. Youll be asked for your [facility] number which you can find at the top of this document. ED Tests and Procedures: Order Status XR Shoulder Right 3 view Canceled XR Shoulder Right 4 view Ordered Discharge Prescriptions & Home Medications: Medication/Strength Dose Route Frequency Indications/Special Instructions/Comments/Notes *cyclobenzaprine (cyclobenzaprine 5 mg oral tablet) 5 mg Oral three times a day as needed for Musclespasm *methylPREDNISolone (methylPREDNISolone 4 mg oral tablet) See Instructions Follow package instructions *OXcarbazepine (OXcarbazepine 600 mg oral tablet) 300 mg Oral two times a day rw15*traZODone (traZODone 100 mg oral tablet) 100 mg Oral once a day (at bedtime) *omeprazole (omeprazole 20 mg oral delayed release tablet) 20 mg Oral once a day ibuprofen (Advil Liquigel 200 mg oral capsule) See Instructions prn, per mom * You have let us know that you are not taking this medication as listed. Please talk with your primary care provider or the health care provider who prescribed the medication as soon as possible. Comment: Attention: If you have any medications at home that are not on this list, DO NOT take them until youcontact your provider for clarification. Give a copy of your medication list to your primary care provider. Update your medication list any time medications or doses are changed and carry your medication list at all times in case of emergency. IMPORTANT: We examined and treated you today on an emergency basis only. This was not a substitute for, or an effort to provide, complete medical care. In most cases, you must let your doctor check youagain. Tell your doctor about any new or lasting problems. We cannot recognize and treat all injuries or illnesses in one Emergency Department visit. If you had special tests, such as EKG's or X- rays, we will review them again within 24 hours. We will call you if there are any new suggestions. Please follow the instructions above carefully. If you are being transferred to another facility your followup plan of care will be determined by the receiving facility. If you are a patient that is being discharged from the Emergency Department after receiving narcotics or other medications that may impair your judgment you may be a risk to yourself or others if you operate a motor vehicle. We recommend that you arrange a ride home with a responsible alliance party. ASHLEY Mederos ALEXANDER LEELAVERE , or responsible alliance party have received this information and my questions have been answered. I have discussed any challenges I see with this plan with the nurse or physician. Patient Signature or Responsible Republican/Relationship Date Time Provider Signature Date Time IMPORTANT: We examined and treated you today on an emergency basis only. This was not a substitute for, or an effort to provide, complete medical care. In most cases, you must let your doctor check youagain. Tell your doctor about any new or lasting problems. We cannot recognize and treat all injuries or illnesses in one Emergency Department visit. If you had special tests, such as EKG's or X- rays, we will review them again within 24 hours. We will call you if there are any new suggestions. Please follow the instructions above carefully. If you are being transferred to another facility your followup plan of care will be determined by the receiving facility. If you are a patient that is being discharged from the Emergency Department after receiving narcotics or other medications that may impair your judgment you may be a risk to yourself or others if you operate a motor vehicle. We recommend that you arrange a ride home with a responsible alliance party. I, JOHN GAVIN , or responsible alliance party have received this information and my questions have been answered. I have discussed any challenges I see with this plan with the nurse or physician. Patient Signature or Responsible Republican/Relationship Date Time Provider Signature Date Time This document has images extracted. Please consider using [employer] for all your patient education needs. Source: [facility] POWERCHART Document Id: [id number] Regina Person R.N. - 04/21/2016 11:07 PM CDT ED Depart Summary [facility] Emergency Department Clinical Discharge Summary PERSON INFORMATION Name JOHN GAVIN Age 25 Years 1990 12:00 AM Sex Male Language Maltese PCP REGGIE RIVAS MD Marital Status Single N [id number] Visit Id Visit Reason Shoulder injury - Minor; ARM OUT OF SOCKET Specialty Enc Type Emergency Med Service Emergency Medicine Referred by Track Group [facility] ED Discharge 04/21/2016 11:07 PM Tracking Id [id number] Checkout 04/21/2016 11:07 PM Checkin 04/21/2016 8:48 PM Acuity 3 -Urgent Dispo Type * Discharged to Home or Self Care Arrival 04/21/2016 8:48 PM Reg Status Complete LOS 000 02:19 Address: [address] [place] [address] Comment: PROVIDER INFORMATION Provider Role Provider Contact Time ROWENA MORENO POWDER GUARD Nurse 04/21/16 21:31 ROCKY THOMAS DO ED Provider 04/21/16 21:49 KRISTIN SELF ED Pool Table Operator 04/21/16 21:50 KRISTIN SELF ED Pool Table Operator 04/21/16 21:52 REGINA PERSON POWDER GUARD Nurse 04/21/16 22:58 SILVIANO SCHREIBER POWDER GUARD Nurse 04/21/16 23:04 DIAGNOSIS Injury Shoulder Initial R Comment: PATIENT EDUCATION INFORMATION Instructions: Parts of the Shoulder Follow up: With: Address: When: ANNETTE ULRICH [address] [place] [phone] Business () Within As Needed With: Address: When: REGGIE RIVAS [address] [place] [address] Business (4) Within As Needed Source: [facility] POWERCHART Document Id: [id number] documented in this encounter ED Notes Regina Person R.N. - 04/21/2016 11:06 PM CDT ED Disposition Summary ED Disposition Summary Entered On: 04/21/2016 23:06 CDT Performed On: 04/21/2016 23:06 CDT by REGINA PERSON RN ED Disposition Summary Present in Room During Exam/Procedure : Friend Mode of Discharge : Ambulatory Printed Discharge Instructions Given to Patient : Yes REGINA PERSON RN - 04/21/2016 23:06 CDT Source: In[employer] Document Id: [id number] CDT!5 Rowena Moreno R.N. - 04/21/2016 10:19 PM CDT ED Pain Assessment ED Pain Assessment Entered On: 04/21/2016 22:19 CDT Performed On: 04/21/2016 22:19 CDT by ROWENA MORENO RN Pain Assessment Pain Symptoms : Yes ROWENA MORENO RN - 04/21/2016 22:19 CDT Pain Scale Pain Scale Verbal 0-10 : Open ROWENA MORENO RN - 04/21/2016 22:19 CDT Pain Pain Assessment Grid Pain 1 Location : Shoulder Intensity : 6 ROWENA MORENO RN - 04/21/2016 22:19 CDT Source: Intermolecular Document Id: [id number] CDT!10 Rocky Thomas D.O. - 04/21/2016 9:51 PM CDT Shoulder injury - Minor Patient: JOHN GAVIN Age: 25 years Sex: Male : 1990 Author: ROCKY THOMAS DO Attachments: None Associated Diagnosis: Injury Shoulder Initial R Basic Information Time seen: Kristin Mederos am scribing for and in the presence of Rocky Thomas DO.. History source: Patient. Arrival mode: Private vehicle. History limitation: None. History of Present Illness The patient presents with right, shoulder pain, shoulder injury. The onset was 2 days ago. The course/duration of symptoms is constant. Type of injury: no discrete injury. patient reports right shoulder pain noted after helping someone move. . Location: Right shoulder. Radiating pain: none. The character of symptoms is achy. The degree of pain is minimal. The degree of swelling is none. The exacerbating factor is movement. The relieving factor is none. Risk factors consist of none. The patient's dominant hand is the right hand. Prior episodes: none. Therapy today: none. Associated symptoms: none. 25 year old male presents to the ED for evaluation of a shoulder injury. 2 days ago patient was helping someone move boxes and he began experiencing right shoulder pain. Patient also complains of He denies any. Review of Systems Constitutional symptoms: No fever or no chills. Eye symptoms: Vision unchanged, but no recent vision problems. ENMT symptoms: No ear pain or no sore throat. Respiratory symptoms: No shortness of breath or no cough. Cardiovascular symptoms: No chest pain. Gastrointestinal symptoms: No abdominal pain, no nausea or no vomiting. Musculoskeletal symptoms: Negative except as documented in HPI. Health Status Allergies: Allergic Reactions (Selected) Moderate Azithromycin- Hives. Nonallergic Reactions (Selected) Moderate Doxycycline- Nausea & vomiting.. Medications: (Selected) Prescriptions Prescribed OXcarbazepine 600 mg oral tablet: 300 mg, PO, 2xDay, 60 tab(s) cyclobenzaprine 5 mg oral tablet: 5 mg, PO, 3xDay, 30 tab(s), PRN: Muscle spasm methylPREDNISolone 4 mg oral tablet: See Instructions, Follow package instructions , 21 tab(s) omeprazole 20 mg oral delayed release tablet: 20 mg, PO, Daily, 30 tab(s) traZODone 100 mg oral tablet: 100 mg, PO, Bedtime, 30 tab(s) Documented Medications Documented Advil Liquigel 200 mg oral capsule: See Instructions, prn, per mom. Past Medical/ Family/ Social History Surgical history: Cystourethroscopy on 06/22/2003 at 12 Years. Tonsillectomy on 10/31/1997 at 7 Years. Comments: 10/07/2015 07:13 - DEVENDRA PINEDO Cystoscopy, ureteral meatotomy on 07/18/1997 at 6 Years. Adenoidectomy on 05/05/1996 at 5 Years. Comments: 10/07/2015 07:15 - KHRIS, DEVENDRA DIANA [facility] Repair, Laceration (R) hand 5th finger on 03/23/1996 at 5 Years. Myringotomy w tubes, right on 05/21/1995 at 4 Years. Repair inguinal hernia, right on 03/13/1994 at 20 Months. Circumcision.. Family history: Suicide Father () Cataract Grandmother (maternal) Heart murmur Grandmother (paternal) Emphysema of lung Grandfather (paternal) Asthma Mother Father () Brother Hypertension Grandmother (paternal) Myocardial infarction Grandmother (paternal) Mental illness Father () Depression Father () Glaucoma Uncle (maternal) History of - migraine Mother Grandmother (paternal) . Social history: Alcohol use: Denies, Tobacco use: Regularly, Drug use: Denies. Problem list: All Problems Attention Deficit Disorder of Childhood with Hyperactivity / 314.01 / Confirmed Bipolar I Disorder, Most Recent Episode (Or Current) Unspecified / 296.7 / Confirmed Constipation, Unspecified / 564.00 / Confirmed Headache / 784.0 / Confirmed Tic Disorder, Unspecified / 307.20 / Confirmed Abuse Tobacco Smoking NOS / Z72.0 / Confirmed Unspecified Sleep Disturbance / 780.50 / Confirmed. Physical Examination Vital Signs: Vital Signs 04/21/2016 21:40 CDT Temperature Core 37.0 DegC Peripheral Pulse Rate 85 /min Respiratory Rate 16 /min SpO2 97 % Systolic Blood Pressure 106 mmHg Diastolic Blood Pressure 65 mmHg . General: Alert and no acute distress. Skin: Warm and dry. Head: Normocephalic and atraumatic. Neck: Supple and trachea midline. Eye: Extraocular movements are intact. Cardiovascular Respiratory: Respirations are non-labored. Musculoskeletal: Normal ROM. normal strength. no tenderness. no swelling. no deformity. Neurological: Alert and oriented to person, place, time, and situation, normal sensory observed and normal motor observed. Lymphatics: No lymphadenopathy. Psychiatric: Cooperative. Medical Decision Making OrdersLaunch Orders Radiology: XR Shoulder Right 3 view (Order Processing): 04/21/2016 21:57 CDT, patient injured right shoulder while moving furniture 2 days ago. Patient thinks it is dislocated, but does not appear so by exam, Stat, Patient Bed, Once, 04/21/2016 21:57 CDT, [facility] ED, Launch Orders Pharmacy: Toradol (Order Processing): 30 mg, IM, Once. Impression and Plan Diagnosis Injury Shoulder Initial R (Discharge, Emergency medicine, Medical) Plan Condition: Improved, Stable. Patient was given the following educational materials: Parts of the Shoulder, Parts of the Shoulder. Follow up with: REGGIE RIVAS Within As Needed; ANNETTE ULRICH Within As Needed. Counseled: Patient, Regarding diagnosis, Regarding diagnostic results, Regarding treatment plan, Patient indicated understanding of instructions. Notes: no fracture by x-ray. have low degree of suspicion for rotator cuff tear given exam and lack of discrete injury. advised course of conservative management: rest, NSAIDs and ortho follow up if not improving in 7-10 days. . Electronically Signed By: ROCKY THOMAS DO On: 04/21/2016 11:07 PM Modified by and Electronically Signed by: ROCKY THOMAS DO On: 04/21/2016 10:00 PM Source: [facility] Mowbly Document Id: [id number]} Rowena Moreno, RJacielNJaciel - 04/21/2016 9:32 PM CDT ED Primary Assessment Document Has Been Updated ED Primary Assessment Entered On: 04/21/2016 21:37 CDT Performed On: 04/21/2016 21:32 CDT by ROWENA MORENO RN Reason For Visit (As Of: 04/21/2016 21:37:58 CDT) Problems(Active) Abuse Tobacco Smoking NOS (ICD-10-CM :Z72.0 ) Name of Problem: Abuse Tobacco Smoking NOS ; Recorder:DEVENDRA PINEDO; Confirmation: Confirmed ; Classification: Medical ; Code: Z72.0 ; Contributor System: [employer] ; Last Updated: 10/07/2015 7:19 BARTENDER HELPER ; Life Cycle Date: 10/07/2015 ; Life Cycle Status: Active ; Responsible Provider: DEVENDRA PINEDO; Vocabulary: ICD-10-CM Attention Deficit Disorder of Childhood with Hyperactivity (ICD-9-CM :314.01 ) Name of Problem: Attention Deficit Disorder of Childhood with Hyperactivity ; Onset Date: 06/08/2001 ; Confirmation: Confirmed ; Classification: Medical ; Code: 314.01 ; Contributor System: PowerChart ; Last Updated: 10/07/2015 7:12 BARTENDER HELPER ; Life Cycle Status: Active ; Vocabulary: ICD-9-CM ; Comments: - Attention deficit disorder with hyperactivity Bipolar I Disorder, Most Recent Episode (Or Current) Unspecified (ICD-9-CM :296.7 ) Name of Problem:Bipolar I Disorder, Most Recent Episode (Or Current) Unspecified ; Onset Date: 01/07/2006 ; Confirmation: Confirmed ; Classification: Medical ; Code: 296.7 ; Contributor System: PowerChart ; Last Updated: 10/07/2015 7:11 BARTENDER HELPER ; Life Cycle Status: Active ; Vocabulary: ICD-9-CM ; Comments: - Bipolar I disorder, most recent episode (or current) unspecified Constipation, Unspecified (ICD-9-CM :564.00 ) Name of Problem: Constipation, Unspecified ; Onset Date: 03/12/2004 ; Confirmation: Confirmed ; Classification: Medical ; Code: 564.00 ; Contributor System: PowerChart ; Last Updated: 10/07/2015 7:11 BARTENDER HELPER ; Life Cycle Status: Active ; Vocabulary: ICD-9-CM ; Comments: - Unspecified constipation Headache (ICD-9-CM :784.0 ) Name of Problem: Headache ; Onset Date: 06/08/2001 ; Confirmation: Confirmed ; Classification: Medical ; Code: 784.0 ; Contributor System: PowerChart ; Last Updated: 10/07/2015 7:11 BARTENDER HELPER ; Life Cycle Status: Active ; Vocabulary: ICD-9-CM ; Comments: - Headache Tic Disorder, Unspecified (ICD-9-CM :307.20 ) Name of Problem: Tic Disorder, Unspecified ; Onset Date: 07/20/2002 ; Confirmation: Confirmed ; Classification: Medical ; Code: 307.20 ; Contributor System: PowerChart ; Last Updated: 10/07/2015 7:11 BARTENDER HELPER ; Life Cycle Status: Active ; Vocabulary: ICD-9-CM ; Comments: - Tic disorder, unspecified Unspecified Sleep Disturbance (ICD-9-CM :780.50 ) Name of Problem: Unspecified Sleep Disturbance ; Onset Date: 07/04/2003 ; Confirmation: Confirmed ; Classification: Medical ; Code: 780.50 ; Contributor System: PowerChart ; Last Updated: 10/07/2015 7:11 BARTENDER HELPER ; Life Cycle Status: Active ; Vocabulary: ICD-9-CM ; Comments: - Sleep disturbance, unspecified Triage Chief Complaint Description : Right shoulder out of socket. Pt helping someone move and right shoulder started hurting; 2 days ago. Information Given By : Patient Present in Room During Exam/Procedure : Alone Mode of Arrival ED : Private vehicle Track : Trauma Other Languages : Maltese GCS Assessed : Yes Treatments Prior to Arrival : Acetaminophen, Ibuprofen Is Patient Female and 13-50 no hysterectomy : No ROWENA MORENO RN - 04/21/2016 21:32 CDT Arabella Coma Eye Opening Response [place] : Spontaneously Best Verbal Response Arabella : Oriented Best Motor Response [place] : Obeys simple commands Arabella Coma Score : 15 ROWENA MORENO RN - 04/21/2016 21:32 CDT Pain Assessment Pain Symptoms : Yes ROWENA MORENO RN - 04/21/2016 21:32 CDT Pain Scale Pain Scale Verbal 0-10 : Open ROWENA MORENO RN - 04/21/2016 21:32 CDT Pain Pain Assessment Grid Pain 1 Location : Shoulder Laterality : Right Intensity : 9 ROWENA MORENO RN - 04/21/2016 21:32 CDT BREEZY DCP GENERIC CODE Tracking Acuity : 3 -Urgent Tracking Group : [facility] ROWENA MORENO RN - 04/21/2016 21:32 CDT Allergy (As Of: 04/21/2016 21:37:58 CDT) Allergies (Active) azithromycin Reactions: Hives ; Comments: Comment 1: AZITHROMYCIN DIHYDRATE ; Created By: Samanage [facility]_HX_ALRG_SYS; Reaction Status: Active ; Category: Drug ; Substance: azithromycin ; Type: Allergy ; Severity: Moderate ; Updated By: Contributor_system [facility]; Reviewed Date: 04/21/2016 21:35 CDT doxycycline Reactions: Nausea and Vomiting ; Comments: Comment 1: DOXYCYCLINE ; Created By: ContributorChute [facility]; Reaction Status: Active ; Category: Drug ; Substance: doxycycline ; Type: Intolerance ; Updated By: ContributorChute [facility]_SYCole; Reviewed Date: 04/21/2016 21:35 CDT Respiratory Airway : Patent Respirations : Unlabored Respiratory Pattern : Regular Oxygen Therapy : Room air Respiratory Detailed Assessment : Yes ROWENA MORENO RN - 04/21/2016 21:32 CDT Resp Detailed Respiratory Patient Stated Symptoms : None Cough : None ROWENA MORENO RN - 04/21/2016 21:32 CDT Breath Sounds Assessment Grid DELORIS : Clear RUL : Clear RML : Clear LLL : Clear RLL : Clear ROWENA MORENO 04/21/2016 21:32 CDT Cardiovascular Heart Rhythm : Regular Skin Color : Normal for ethnicity Skin Description : Dry Skin Temperature : Warm ROWENA MORENO RN 04/21/2016 21:32 CDT Neurological Last Well Time Known : Not applicable Level of Consciousness : Alert Orientation : Appropriate for age Characteristics of Speech : Appropriate for age Neuro Patient Stated Symptoms : None ROWENA MORENO 04/21/2016 21:32 CDT ED Psychosocial Affect/Behavior : Calm Domestic Abuse Concerns : None Behavioral Health Screen/Safety Assmt : No ROWENA MORENO RN 04/21/2016 21:32 CDT Gastrointestinal Nutrition ED : Adequate GI Detailed Assessment : Yes ROWENA MORENO RN 04/21/2016 21:32 CDT GI Detailed GI Patient Stated Symptoms : None ROWENA MORENO 04/21/2016 21:32 CDT Musculoskeletal Fall Prevention Education Provided : Yes ROWENA MORENO RN 04/21/2016 21:32 CDT Musculoskeletal Joint Assessment Grid Joint Assessment #1 Location : Shoulder, right Assessment : Edema present, Tender to palpation Range of Motion : Limited motion, active, Limited motion, passive ROWENA MORENO RN 04/21/2016 21:32 CDT Social Habits Exposure to Tobacco Smoke : Patient smokes Smoking Status : Current every day smoker Tobacco 2A : Yes Tobacco Use/Currently Using : Yes Tobacco Use/Last 30 Days : Yes Tobacco Use/Last 12 months : Yes Type : Cigarettes: Less than 20 per day Tobacco Use/Advised to Quit : No ROWENA MORENO RN 04/21/2016 21:32 CDT Alcohol Use Grid Alcohol Use : No ROWENA MORENO RN 04/21/2016 21:32 CDT Recreational Drug Use Grid Drug Use : None ROWENA MORENO RN 04/21/2016 21:32 CDT Source: [facility] Document Id: [id number] CDT!87 documented in this encounter Miscellaneous Notes Miscellaneous - Conversion, Historical Provider Ser - 04/21/2016 11:07 PM CDT Coding Summary-Paper Based CODING DATE: 04/28/2016 FINAL [facility] STATUS: * Discharged to Home or Self Care PAYOR: Medicare ADMIT DX: M25.511 Pain in right shoulder REASON FOR VISIT DX: M25.511 Pain in right shoulder FINAL DX: PRINCIPAL: S49.91XA Unspecified injury of right shoulder and upper arm, initial encounter SECONDARY: F17.210 Nicotine dependence, cigarettes, uncomplicated Z88.1 Allergy status to other antibiotic agents status X58.XXXA Exposure to other specified factors, initial encounter Y92.[address] or not applicable PROCEDURES DOCTOR NAME DATE NOTE: The code number assigned matches the documented diagnosis and / or procedure in the patient's chart. However, the narrative phrase printed from the coding software may appear abbreviated, or result in slightly different terminology. Coded By: STEPHANIE VERAS Date Saved: 04/28/2016 03:34 pm Source: [employer] Document Id: [id number] Miscellaneous - Regina Person R.N. - 04/21/2016 11:06 PM CDT Valuables/Belongings Valuables/Belongings Entered On: 04/21/2016 23:07 CDT Performed On: 04/21/2016 23:06 CDT by REGINA PERSON RN Valuables/Belongings Valuables/Belongings Grid Valuables with Patient Clothes, Patient Valuables : None REGINA PERSON RN - 04/21/2016 23:06 CDT Source: [employer] Document Id: [id number] CDT!5 [place] - Regina Person R.N. - 04/21/2016 8:48 PM CDT Facility Charge Ticket 2.0 11.0 DX Facility Charge Ticket 2.0 11.0 DX Entered On: 04/21/2016 23:07 CDT Performed On: 04/21/2016 20:48 CDT by REGINA PERSON RN Facility Charge Ticket 2.0 11.0 DX ED Other Charges : Standard ED Encounter TVL Level Translated RTF : Shoulder injury - Minor TVL:3 TVL Level for Facility Charge Ticket : Level 3 Arrival Mode Calc : 257 Mode of Arrival ED : Private vehicle [facility] Mode of Arrival Interpreted : Standard [facility] Process Management : None Order Management RTF : Xray XR Shoulder Right 4 view,04/21/16 21:57,ROCKY THOMAS DO Ordered [facility] Order Management : Xray - plain films 30 Minutes Critical Care : No Nursing Notes RTF : Nursing Notes ED Primary Assessment,04/21/16 21:32,ROWENA MORENO RN ED Pain Assessment,04/21/16 22:19,ROWENA MORENO RN [facility] Nursing Assessment : Triage and 1-2 nursing assessments [facility] Disposition : Discharge [facility] Total Points with Diagnosis Control : 6 [facility] Visit Level : 96226 Level 3 Treatments Prior to Arrival : Acetaminophen, Ibuprofen REGINA PERSON RN - 04/21/2016 23:07 CDT Source: [facility] Document Id: [id number] documented in this encounter Plan of Treatment Not on filedocumented as of this encounter Visit Diagnoses Not on filedocumented in this encounter
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
--- OUTSIDE RECORDS SUMMARY | 2022-09-25 11:02 | XMS_ITS | Encounter Summary ---
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 intravenous, at 2,000 mL/hr, A dminister over 0.5 Hours, Once, On Bhumi 04/28/18 at 0250, For 1 dose NaCl 0.9 % bolus 1,000 mL (COMPLETED) 0428 (New Bag - Provider: Mila Pierson R.N.)0758 (Stopped - Provider: Miracle Mcgowan R.N.) 1,000 mL, intravenous, at 1,000 mL/hr, A dminister over 1 Hours, Once, On Bhumi 04/28/18 at 0428, For 1 dose OLANZapine injection 5 mg (ZyPREXA) 0244 (Due) 5 mg, intramuscular, Once, Bhumi 04/28/18 a t 0244, For 1 dose, Reconstitute with SWFI. 10 mg vial: add 2.1 mL Approximate final concentration = 5 mg/mL. sodium chloride injection 3 mL 3 mL, intravenous, Every 12 hours schedu led, First dose on Bhumi 04/28/18 at 0900, Peripheral Intravenous Catheter and Rapid Infusion Catheter, when no infusion to maintain patency PRN Medication Order 04/26/2018 04/27/2018 04/28/2018 ondansetron (PF) injection 4 mg (ZOFRAN) 0235 (Given - Provider: Mila Pierson R.N.) 4 mg, intravenous, Every 20 min PRN, evelyn sea, vomiting, Starting Bhumi 04/28/18 at 0213, For 2 doses sodium chloride injection 10 mL 10 mL, intravenous, As needed, line care , Starting Bhumi 04/28/18 at 0212, Peripheral Intravenous Catheter and Rapid Infusion Catheter, prior to blood sampling, post blood transfusion or post blood sampling sodium chloride injection 3 mL 3 mL, intravenous, As needed, line care, Starting Bhumi 04/28/18 at 0212, Prior to and following infusion and between multiple consecutive infusions: sodium chloride 0.9 % injection documented in this encounter Care Teams Mobile Device Developer Relationship Specialty Start Date End Date Julian Santana M.D. PCP - General 05/13/17 PADMAJA William [id number] documented as of this encounter
--- OUTSIDE RECORDS SUMMARY | 2022-09-25 11:02 | XMS_ITS | Encounter Summary ---
:1990 Author Organization [facility] Address [address] [place] [address] Care Team Providers Name Role Phone Unavailable Primary Care Provider Unavailable Encounter Details Date Type Department Care Team Description 03/12/2017 Hospital Encounter HX [facility] ICU Annette Arevalo M.D . Social History Tobacco Use Types Packs/Day Years [...] Sign Reading Time Taken Comments Blood Pressure 118/69 03/12/2017 9:45 PM CDT Pulse 99 03/12/2017 8:45 PM CDT Temperature - - Respiratory Rate 17 03/12/2017 8:45 PM CDT Oxygen Saturation - - Inhaled Oxygen Concentration - - Weight - - Height 175.3 cm (5' 9) 03/12/2017 8:45 PM CDT Body Mass Index - - documented in this encounter Discharge Summaries Feli Gandhi, R.N. - 03/12/2017 9:57 PM CDT Discharge Summary Discharge Summary Entered On: 03/12/2017 22:06 CDT Performed On: 03/12/2017 21:57 CDT by FELI GANDHI RN DC Information Discharged to : Home independently Current Home Treatments : None Home Equipment : Orthotic/Splint Professional Skilled Services : None Special Services and Community Resources : None Mode of Discharge : Wheelchair Discharge Transportation : Private vehicle Accompanied By : Nurse Date/Time of Discharge : 03/12/2017 21:57 CDT FELI GANDHI RN - 03/12/2017 22:04 CDT Education General Patient Education Powergrid Topics : Equipment, Medication dosage, route, scheduling, Medication generic/brand names, purpose, action, Medication precautions, side effects, food/drug interaction, Pain Management, Plan of care, Safety, fall Individuals Taught : Patient Barriers to Learning : Acuity of Illness Teaching Method : Demonstration, Explanation, Printed materials Teaching Evaluation : Able to teach back, Verbalizes understanding FELI GANDHI RN - 03/12/2017 22:04 CDT Valuables/Belongings Belongings Sent Home With : all belongings sent home with patient FELI GANDHI RN - 03/12/2017 22:04 CDT Source: [employer] Document Id: [id number] CDT!21 Feli Gandhi R.N. - 03/12/2017 9:39 PM CDT Hospital Discharge Medication List [address] [id number] Discharge Medication List Name: JOHN GAVINJAYNA Current Date: 03/12/2017 21:39:40 : 1990 12:00 AM [facility] Number: [id number] Patient Address: [address] [place] [address] Patient Primary Care Provider: Name: REGGIE RIVAS MD Discharge Diagnosis: [facility] in [place] would like to thank you for allowing us to assist you with your healthcare needs. The following includes patient education materials and information regarding yourinjury/illness. Medications Medication/Strength How to Take Indications/Special Instructions/Comments/Notes for Patient Medication Changes/Routing Stop Taking the Following Medications: ibuprofen (Advil Liquigel 200 mg oral capsule) Medication list as of 03-12-17 21:39 Attention: If you have any medications at home that are not on this list, DO NOT take them until youcontact your provider for clarification. Give a copy of your medication list to your primary care provider. Update your medication list any time medications or doses are changed and carry your medication list at all times in case of emergency. Comment: Electronically Signed By: Signed On: Source: [facility] POWERCHART Document Id: [id number] Feli Gandhi R.N. - 03/12/2017 9:39 PM CDT Hospital Discharge Instructions [address] [address] Patient Discharge Instructions Name: JOHN GAVIN Current Date: 03/12/2017 21:39:40 : 1990 12:00 AM [facility] Number: [id number] Patient Address: [address] [place] [address] Patient Primary Care Provider: Name: REGGIE RIVAS MD Discharge Diagnosis: [facility] would like to thank you for allowing us to assist you with yourhealthcare needs. The following includes patient education materials and information regarding your injury/illness. Comment: JOHN GAVIN has been given the following list of follow-up instructions, medicationlist and patient education materials: Follow-up Instructions With: Address: When: ANNETTE AREVALO [address] [place] [address] Business (1) Within 7 - 10 days Comments: Call for follow up appointment. CALL [phone] TO SCHEDULE YOUR POST-OP FOLLOW-UP APPPOINTMENT WITH DR. AREVALO. Discharge Diet Diet Type: Resume previous diet Discharge Incision/Wound Care Wound Location: right hand Keep Wound Dry: 1 week May Shower: In 48 Hours, In 24 Hours Dressing: Don't remove Special Instructions: use plastic bag for shower coverage no soaking Discharge Instruction General Activity Limitations: Activity as tolerated Medications Medication/Strength How to Take Indications/Special Instructions/Comments/Notes for Patient Medication Changes/Routing Stop Taking the Following Medications: ibuprofen (Advil Liquigel 200 mg oral capsule) Medication list as of 03-12-17 21:39 Attention: If you have any medications at home that are not on this list, DO NOT take them until youcontact your provider for clarification. Give a copy of your medication list to your primary care provider. Update your medication list any time medications or doses are changed and carry your medication list at all times in case of emergency. Comment: Electronically Signed By: Signed On: Your Upcoming Appointments Date Time Location Provider No Appointments found Consider Using Patient Online Services Patient Online [...] if you dont have one. Go to [email or web address] and click on Create Your Account. Then, follow the directions to complete the online form. Youll be asked for your [facility] number which you can find at the top of this document. ASHLEY [employer] ALEXANDER LEELAVERE , have received the attached patient education materials/instructions and have verbalized understanding: Patient Signature Date Time Care Provider Signature Date Time After Hand Surgery After surgery, the better you take care of yourself--especially your hand--the sooner it will heal. Follow your surgeons instructions. Try not to bump your hand, and dont move or lift anything while youre still wearing bandages, a splint, or a cast. Care for your hand ?? Keep your hand elevated above heart level as much as possible for the first several days after surgery. This helps reduce swelling and pain. ?? To help prevent infection and speed healing, take care not to get your cast or bandages wet. Keep your hand dry Elevate your hand Relieve pain as directed Your surgeon may prescribe pain medication or suggest you take an anti- inflammatory medication. You might also be instructed to apply ice (or another cold source) to your hand. If you use ice cubes, put them in a plastic bag and rest it on top of your bandages. Leave the cold source on your hand for as long as its comfortable. Do this several times a day for the first few days after surgery. It may take several minutes before you can feel the cold through the cast or bandages. Follow up with your surgeon During a follow-up visit after surgery, your surgeon will check your progress. The stitches, bandages, splint, or cast may be removed. Or a new cast or splint may be placed. If your hand has healed enough, your surgeon may prescribe exercises. Do prescribed hand exercises Your surgeon may recommend that you do exercises. These may be done under the guidance of a physicaltherapist. The exercises strengthen your hand, help you regain flexibility, and restore proper function. Do the exercises as advised. Call your surgeon if you have... A fever higher than 100?F taken by mouth. Side effects from yourmedication, such as prolonged nausea. A wet or loose dressing, or a dressing that is too tight. Excessive bleeding. Increased, ongoing pain or numbness. Signs of infection (such as drainage, warmth, or redness) at the incision site. ?? [id number] [facility], [address] [place] [address]. All rights reserved. This information is not intended as a substitute for professional medical care. Always follow your healthcare professional's instructions. This document has images extracted. Please consider using [employer] for all your patient education needs. Source: [facility] POWERCHART Document Id: [id number] documented in this encounter Progress Notes Feli Gandhi R.N. - 03/12/2017 7:34 PM CDT Wound Care Wound Care Entered On: 03/12/2017 19:37 CDT Performed On: 03/12/2017 19:34 CDT by FELI GANDHI RN Integumentary Pain Symptoms : Yes Integumentary Patient Stated Symptoms : None Skin Turgor : Elastic Skin Integrity : Not intact Mucous Membrane Color : Naschitti Mucous Membrane Description : Moist Skin Color : Normal for ethnicity Skin Description : Dry Skin Temperature : Warm FELI GANDHI RN - 03/12/2017 19:34 CDT Incision/Wound Incision/Wound Care Grid Activity : Assessed Dressing Type : Laceration Location : Hand Laterality : Right Drainage : None Wound Dressing : 4x4's, Other: dionicio wrap Neurovascular Status : Pulses distal to injury palpable, Skin distal to injury warm and pink FELI GANDHI RN - 03/12/2017 19:34 CDT Pain Scale Pain Scale Verbal 0-10 : Open FELI GANDHI RN - 03/12/2017 19:34 CDT Pain Pain Assessment Grid Pain 1 Location : Hand Laterality : Right Intensity : 9 Time Pattern : Acute Quality : Unable to describe Pain Radiation : No Aggravating Factors : None Alleviating Factors : None Associated Symptoms : None Interventions : MD notified, Medications, Repositioning, Rest FELI GANDHI RN - 03/12/2017 19:34 CDT Education Wound Care Education Grid Topics : Plan of care, Positioning, Post-op care Individuals Taught : Patient Barriers to Learning : Acuity of Illness Teaching Method : Explanation Teaching Evaluation : Needs further teaching, Needs reinforcement FELI GANDHI RN - 03/12/2017 19:34 CDT Source: [employer] Document Id: [id number] CDT!44 Annette Arevalo M.D. - 03/12/2017 12:00 AM CDT [id number] The patient returns to the hospital after signing out AMA. There evidently was a misunderstanding, and I told him that it was possible for him to go home and stay nothing by mouth and come back for theplanned surgery, and evidently that is what he did. The patient is reviewed again with his family and we will forward him down to the operating room. Dr. Gtz will be seeing him for anesthesia. Annette Arevalo M.D./magaly Electronically Signed By: ANNETTE AREVALO MD On: 03/15/2017 08:13 AM Source: [facility] MHSDOLBEYNONRADSYS Document Id: [id number] documented in this encounter Procedure Notes Aurelia Tran R.N. - 03/12/2017 5:45 PM CDT Peripheral IV Peripheral IV Entered On: 03/12/2017 17:47 CDT Performed On: 03/12/2017 17:45 CDT by AURELIA TRAN RN Peripheral IV Peripheral IV Assess/Intervention Grid Peripheral IV #1 IV Activity : Start Number of Attempts : 1 Date of Insertion : 03/12/2017 CDT IV Site : Antecubital Laterality : Left Infiltration Score : 0 Phlebitis Score : 0 Dressing/ Activity : Dry, Intact, Transparent Flow/ Patency : No complications AURELIA TRAN RN - 03/12/2017 17:45 CDT Source: [facility] POWERCHART Document Id: [id number] CDT!13 documented in this encounter Consult Notes Annette Arevalo M.D. - 03/12/2017 12:00 AM CDT [id number] The patient is a 26-year-old male who was seen in the emergency room on the day of admission. The individual evidently tripped at home and fell forward onto an aquarium which shattered. He ended up having a piece of glass jammed into his right palm. The patient was subsequently taken to the emergency room where he has been seen by Dr. Can, and I discussed the case with him. He has attempted to try to remove the foreign body in the emergency room under a local anesthetic. The patient is bipolar and currently reacting very negatively to the experience and is very difficult to try to convince to hold still. He did have x-rays obtained, and the x-rays demonstrate a radiopaque foreign body near the 3rd metacarpal. The patient and his fiancee were discussed the current situation as well as his mother. The individual is recommended to be forwarded to the operating room for removal under anesthesia and C-arm fluoroscopy. The patient will be sent upstairs for further investigation since he ate and will have to delay anesthesia until it is safe per Anesthesiology. Annette Arevalo M.D./magaly Electronically Signed By: ANNETTE AREVALO MD On: 03/15/2017 08:13 AM Source: [facility] MHSDOLBEYNONRADSYS Document Id: [id number] documented in this encounter Nursing Notes Feli Gandhi, R.N. - 03/12/2017 9:57 PM CDT PRN Response PRN Response Entered On: 03/12/2017 22:13 CDT Performed On: 03/12/2017 21:57 CDT by FELI GANDHI RN Intervention Information: morphine Performed by FELI GANDHI RN on 03/12/2017 21:27:00 CDT morphine,2mg IV Push,Antecubital Left,Pain PRN Medication Effectiveness Evaluation PRN Medication Effective : Yes Post Medication Pain Assessment : 6 FELI GANDHI RN - 03/12/2017 22:12 CDT Comfort Measures Comfort Measures Response : Comfort level increased FELI GANDHI RN - 03/12/2017 22:12 CDT Education General Patient Education Powergrid Topics : Medication dosage, route, scheduling, Medication generic/brand names, purpose, action, Medication precautions, side effects, food/drug interaction, Pain Management, Plan of care, Safety, fall Individuals Taught : Patient Barriers to Learning : Acuity of Illness Teaching Method : Explanation Teaching Evaluation : Verbalizes understanding FELI GANDHI RN - 03/12/2017 22:12 CDT Zepeda Zepeda Agitation Sedation Scale (RASS) : Alert and calm RASS Score : 0 FELI GANDHI RN - 03/12/2017 22:12 CDT Respiratory Respirations : Unlabored Respiratory Pattern : Regular FELI GANDHI RN - 03/12/2017 22:12 CDT Source: [facility] POWERCHART Document Id: [id number] CDT!20 Feli Gandhi R.N. - 03/12/2017 9:57 PM CDT PRN Response PRN Response Entered On: 03/12/2017 22:13 CDT Performed On: 03/12/2017 21:57 CDT by FELI GANDHI RN Intervention Information: hydrocodone-acetaminophen Performed by FELI GANDHI RN on 03/12/2017 21:31:00 CDT HYDROcodone-acetaminophen,2tab(s) PO,Pain PRN Medication Effectiveness Evaluation PRN Medication Effective : Yes Post Medication Pain Assessment : 6 FELI GANDHI RN - 03/12/2017 22:13 CDT Comfort Measures Comfort Measures Grid Encourage Visitors : Yes Positive Self-Talk : Yes FELI GANDHI RN - 03/12/2017 22:13 CDT Comfort Measures Response : Comfort level increased FELI GANDHI RN - 03/12/2017 22:13 CDT Education General Patient Education Powergrid Topics : Medication dosage, route, scheduling, Medication generic/brand names, purpose, action, Medication precautions, side effects, food/drug interaction, Pain Management, Plan of care, Safety, fall Individuals Taught : Patient Barriers to Learning : Acuity of Illness Teaching Method : Explanation Teaching Evaluation : Verbalizes understanding FELI GANDHI RN - 03/12/2017 22:13 CDT Zepeda Zepeda Agitation Sedation Scale (RASS) : Alert and calm RASS Score : 0 FELI GANDHI RN - 03/12/2017 22:13 CDT Respiratory Respirations : Unlabored Respiratory Pattern : Regular FELI GANDHI RN - 03/12/2017 22:13 CDT Source: [employer] Document Id: [id number] CDT!23 Feli Gandhi R.N. - 03/12/2017 9:04 PM CDT PRN Response PRN Response Entered On: 03/12/2017 21:10 CDT Performed On: 03/12/2017 21:04 CDT by FELI GANDHI RN Intervention Information: morphine Performed by FELI GANDHI RN on 03/12/2017 20:34:00 CDT morphine,2mg IV Push,Antecubital Left,Pain PRN Medication Effectiveness Evaluation PRN Medication Effective : Yes Post Medication Pain Assessment : 6 FELI GANDHI RN - 03/12/2017 21:09 CDT Comfort Measures Comfort Measures Grid Comfortable Environment : Yes Encourage Visitors : Yes Quiet Environment : Yes FELI GANDHI RN - 03/12/2017 21:09 CDT Comfort Measures Response : Comfort level increased FELI GANDHI RN - 03/12/2017 21:09 CDT Education General Patient Education Powergrid Topics : Medication dosage, route, scheduling, Medication generic/brand names, purpose, action, Medication precautions, side effects, food/drug interaction, Pain Management, Plan of care, Safety, fall Individuals Taught : Patient Barriers to Learning : Acuity of Illness Teaching Method : Explanation Teaching Evaluation : Needs further teaching, Needs reinforcement FELI GANDHI RN - 03/12/2017 21:09 CDT Zepeda Zepeda Agitation Sedation Scale (RASS) : Alert and calm RASS Score : 0 FELI GANDHI RN - 03/12/2017 21:09 CDT Respiratory Respirations : Unlabored Respiratory Pattern : Regular FELI GANDHI RN - 03/12/2017 21:09 CDT Source: [facility] POWERCHART Document Id: [id number] CDT!24 Feli Gandhi R.N. - 03/12/2017 8:47 PM CDT PRN Response PRN Response Entered On: 03/12/2017 20:50 CDT Performed On: 03/12/2017 20:47 CDT by FELI GANDHI RN Intervention Information: diazepam Performed by FELI GANDHI RN on 03/12/2017 20:17:00 CDT diazePAM,2mg IV Push,Antecubital Left,Muscle spasm PRN Medication Effectiveness Evaluation PRN Medication Effective : Yes FELI GANDHI RN - 03/12/2017 20:49 CDT Comfort Measures Comfort Measures Grid Encourage Visitors : Yes Positioning : Yes Positive Self-Talk : Yes FELI GANDHI RN - 03/12/2017 20:49 CDT Comfort Measures Response : Comfort level increased FELI GANDHI RN - 03/12/2017 20:49 CDT Education General Patient Education Powergrid Topics : Medication dosage, route, scheduling, Medication generic/brand names, purpose, action, Medication precautions, side effects, food/drug interaction, Pain Management Individuals Taught : Patient Barriers to Learning : Acuity of Illness Teaching Method : Explanation Teaching Evaluation : Needs further teaching, Needs reinforcement FELI GANDHI RN - 03/12/2017 20:49 CDT Zeepda Zepeda Agitation Sedation Scale (RASS) : Alert and calm RASS Score : 0 FELI GANDHI RN - 03/12/2017 20:49 CDT Respiratory Respirations : Unlabored Respiratory Pattern : Regular FELI GANDHI RN - 03/12/2017 20:49 CDT [facility] Document Id: [id number] CDT!23 Feli Gandhi RJacielN. - 03/12/2017 8:03 PM CDT PRN Response PRN Response Entered On: 03/12/2017 20:04 CDT Performed On: 03/12/2017 20:03 CDT by FELI GANDHI RN Intervention Information: morphine Performed by FELI GANDHI RN on 03/12/2017 19:33:00 CDT morphine,2mg IV Push,Antecubital Left,Pain PRN Medication Effectiveness Evaluation PRN Medication Effective : No Post Medication Pain Assessment : 9 FELI GANDHI RN - 03/12/2017 20:04 CDT Comfort Measures Comfort Measures Grid Encourage Visitors : Yes Positive Self-Talk : Yes Quiet Environment : Yes FELI GANDHI RN - 03/12/2017 20:04 CDT Comfort Measures Response : Comfort level unchanged FELI GANDHI RN - 03/12/2017 20:04 CDT Zepeda Zepeda Agitation Sedation Scale (RASS) : Agitated RASS Score : 2 FELI GANDHI RN - 03/12/2017 20:04 CDT Respiratory Respirations : Unlabored Respiratory Pattern : Regular FELI GANDHI RN - 03/12/2017 20:04 CDT Source: [facility] [employer] Document Id: [id number] CDT!16 Feli Gandhi R.N. - 03/12/2017 7:37 PM CDT Education ICU Education ICU Entered On: 03/12/2017 19:38 CDT Performed On: 03/12/2017 19:37 CDT by FELI GANDHI RN Education ICU Education Grid Topics : Activity limitations/expectations, Medication dosage, route, scheduling, Medication generic/brand names, purpose, action, Medication precautions, side effects, food/drug interaction, Nutrition/Diet, Pain management, Plan of care, Surgery, Turn/Cough/Deep breathing Individuals Taught : Patient Barriers to Learning : Acuity of Illness Teaching Method : Explanation Teaching Evaluation : Needs further teaching, Needs reinforcement FELI GANDHI RN - 03/12/2017 19:37 CDT [facility] Document Id: [id number] CDT!9 Gabe Sosa R.N. - 03/12/2017 7:03 PM CDT [facility] Main OR Nursing Record [facility] Main OR Nursing Record Summary Primary Physician: ANNETTE AREVALO MD Finalized Date/Time: 03/12/17 19:27:11 Pt. Name: JOHN GAVIN SYLVESTER /Sex: 1990 Male Med Rec #: [id number] Physician: Financial #: [id number] Pt. Type: D Room/Bed: [facility] Admit/Disch: 03/12/17 17:08:39 - Institution: Allergies identified in patient's electronic medical record at time of printing on 03/12/17 Entry 1 Entry 2 Substance azithromycin doxycycline Reaction Type Allergy Intolerance Last Modified By: LOLIS VICTOR [facility] LOLIS VICTOR [facility] 04/21/16 21:42:03 04/21/16 21:42:17 Nursing Assessment [facility] Entry 1 Preop Checklist Yes Patient Arrived in No Reviewed OR with Jewelry, Valuables, Glasses and/or Contact Lenses. If yes, disposition charted on Valuables/Belongings tab of Preprocedure Checklist. Level of Oriented Skin Condition Abnormal Consciousness Nursing Data - Pain Does Patient Have Yes Pain Level 5 Pain? Pain Location Hand, Right Diagnoses X04 Anxiety, X29 Interventions I106 Provides Injury, risk of, X30 instruction based on Knowledge deficit, X57 age and identified Temperature, risk for need., I050 Evaluates altered body, X32 Latex response to allergy response, risk instructions., I078 for Implements thermoregulation measures., I109 Provides status reports to family/support person. Expected Outcomes O01 The patient is free All Patient Yes from signs and symptoms Outcomes Met? (see of physical injury., anesthesia record O12 The patient is at for hypothermia or returning to outcome) normothermia at the conclusion of the immediate postoperative period., O29 The patient demonstrates and/or reports adequate pain control throughout the perioperative period., Patient verbalizes comprehension of instructions, Patient verbalizes/indicates decreased anxiety and understanding of procedures/events Last Modified By: GABE SOSA RN 03/12/17 17:53:37 Case Times [facility] Entry 1 Patient In Room Time 03/12/17 18:21:00 Anesthesia Start 03/12/17 18:21:00 Time Surgery Start Time 03/12/17 18:46:00 Surgery Stop Time 03/12/17 19:03:00 Patient Out Room 03/12/17 19:15:00 Anesthesia Stop Time 03/12/17 19:15:00 Time Last Modified By: GABE SOSA RN 03/12/17 19:25:19 Case Attendance [facility] Entry 1 Entry 2 Entry 3 Case Attendee ANNETTE AREVALO MD, CHUCK RN PUTNAM, TAMARA RN Role Performed Surgeon, Primary RN Biomedical Instrument Technician - Primary Scrub, First Time In 03/12/17 18:21:00 03/12/17 18:21:00 03/12/17 18:21:00 Time Out 03/12/17 19:15:00 03/12/17 19:15:00 03/12/17 19:15:00 Relief? No No No See Anesthesia Record for Additional Attendees and Relief Times Last Modified By: GABE SOSA RN, CHUCK RN RITMIRE, CHUCK RN 03/12/17 19:25:20 03/12/17 19:25:20 03/12/17 19:25:20 Entry 4 Entry 5 Entry 6 Case Attendee MERY GTZ MD, GERALD H LANCE, KRISTINE LPN RT(R)(CT) RT(R) Role Performed Anesthesiologist of High Value Associate Assistant, First Record Time In 03/12/17 18:21:00 03/12/17 18:21:00 03/12/17 18:21:00 Time Out 03/12/17 19:15:00 03/12/17 19:15:00 03/12/17 19:15:00 Relief? No No No See Anesthesia Record for Additional Attendees and Relief Times Last Modified By: GABE SOSA RN, CHUCK RN RITMIRE, CHUCK RN 03/12/17 19:25:20 03/12/17 19:25:20 03/12/17 19:25:42 Surgical Procedures [facility] Entry 1 Procedure Hand Incision and Modifiers Right Drainage Procedure Performed Right hand incision & Primary Procedure Yes (Primary Procedure drainage Surgeon Comment) Primary Surgeon ANNETTE AREVALO MD Surgical Service SN - Orthopedics Start 03/12/17 18:46:00 Stop 03/12/17 19:03:00 Anesthesia Type Juan Block IV Regional Anesthesia Type Yes Verified Last Modified By: GABE SOSA RN 03/12/17 19:25:34 General Case Data [facility] Entry 1 Case Information OR RW OR 05 Case Level Level IN 1 Wound Class Clean Specialty SN - Orthopedics ASA Class 2E Diagnosis Preop Diagnosis Right hand laceration with foreign body Last Modified By: GABE SOSA RN 03/12/17 18:00:14 Fire Risk Assessment [facility] Entry 1 Date/Time 03/12/17 18:00:00 Surgical Site Above No = 0 Xiphoid Open Oxygen Source Yes = 1 Available Ignition Yes = 1 Source Fire Risk 2 Last Modified By: GABE SOSA RN 03/12/17 18:00:22 Surgical Pause RWHO Entry 1 Pause Date-Time 03/12/17 18:46:00 Surgical/Procedural Surgical team verifies Team Pause patient name and birthdate, Surgical team verifies surgical procedure, including side and site, Surgical team verifies correct patient position, Surgical team verifies availability of implants, special equipment or special requirements, Surgical team verifies antibiotic administration and documentation Fire Risk Assessment Surgical Team Verified Fire Risk Assessment Last Modified By: GABE SOSA RN 03/12/17 18:47:32 Initial Count Entry 1 Initial Sponge Count Yes Initial Sharps Count Yes Initial Instrument Yes By GABE SOSA RN, Count FREDDIE STEPHENSON RN Last Modified By: GABE SOSA RN 03/12/17 18:03:45 Positioning Entry 1 Diagnoses X29 Injury, risk of, Positioning By MERY GTZ MD, X51 Skin integrity, GABE SOSA RN, risk for impaired IRINA, ANNETTE Ross MD Body Position Supine Left Arm Position Padded, Extended on Armboard Right Arm Position in operative field Leg Position Bony Prominences Padded Intermittent Yes Interventions I064 Identifies Pneumatic physical alterations Compression Device, that may affect Knee High? procedure-specific positioning., I011 Applies safety devices., I041 Evaluates for signs and symptoms of physical injury. Expected Outcomes O05 The patient is free Outcomes Met? Yes from signs and symptoms of injury related to positioning. Last Modified By: GABE SOSA RN 03/12/17 18:03:36 Positioning Device RWHO Entry 1 Positioning Device Hand Table Device Location Arm, Right Last Modified By: GABE SOSA RN 03/12/17 18:01:17 Tourniquet Entry 1 Tourniquet Unit Number [id number] See Anesthesia record forTourniquet Time Site Right arm Setting 250 mmHg Applied By MERY GTZ MD Skin Condition Skin intact Before Skin Condition After Skin intact Last Modified By: GABE SOSA RN 03/12/17 18:02:02 Skin Prep RWHO Entry 1 Skin Prep Prep Site Hand, Right Prep Agents Povidone Iodine Scrub, Povidone Iodine Solution Flammable Prep Not Applicable By GABE SOSA RN Agents Allowed to Dry? Hair Removal Methods N/A Diagnosis X28 Infection, risk for Interventions I081 Initiates traffic control., I098 Protects from cross-contamination., Prep performed consistent with aseptic principles and surgeon preference Expected Outcomes Surgery performed using Outcomes Met Yes aseptic technique, preventing cross contamination Last Modified By: GABE SOSA RN 03/12/17 18:02:30 Cautery Entry 1 CauteryType [place] [facility] Unit I.D. Number [id number] Coag Setting 25 Cut Setting 25 Grounding Pad Site Right calf Skin Cond Before Skin intact Skin Cond After Skin intact Last Modified By: GABE SOSA RN 03/12/17 18:02:53 Cultures Entry 1 Culture Type Aerobic and Anaerobic Source Right hand wound Disposition To Lab Last Modified By: GABE SOSA RN 03/12/17 18:53:41 Counts Entry 1 Counts Sequence Closing Count, Final Sponges Count Yes Count Correct? Sharps/[place] Yes Instrument Count n/a Count Correct? Correct? By GABE SOSA RN, Actions Taken Surgeon notified of FREDDIE STEPHENSON RN count status Last Modified By: GABE SOSA RN 03/12/17 18:54:02 Dressings Entry 1 Location Hand, Right Dressing Adaptic with Betadine Solution, 4x4's, Webril, Dionicio wraps Last Modified By: GABE SOSA RN 03/12/17 19:01:48 Departure from OR Entry 1 Via Cart Post-op Destination PACU Report Given To FELI GANDHI RN Final Wound Class Clean Contaminated per Surgeon/Team Reason for Change No change in wound class in Wound Class Last Modified By: GABE SOSA RN 03/12/17 19:26:55 Case Comments <None> Finalized By: GABE SOSA RN Signed By: Signature Initials Document Signatures Signed By: GABE SOSA RN 03/12/17 19:27 [email or web address] Document Id: [id number] Tracey Ferreira R.N. - 03/12/2017 5:33 PM CDT Protocol Vascular Access Adult Protocol Vascular Access Adult Entered On: 03/12/2017 17:33 CDT Performed On: 03/12/2017 17:33 CDT by TRACEY FERREIRA RN Vascular Access Adult Protocol Age 15 years or older Adult Protocol : Yes Vascular Access Device Adult : Yes Exclusion Criteria Adult Vascular Access Protocol : Patient has none of the below exclusions Vascular Access Protocol Status Adult : Criteria Met TRACEY FERREIRA RN - 03/12/2017 17:33 CDT Source: [employer] Document Id: [id number] documented in this encounter OR Notes Op Note - Annette Arevalo M.D. - 03/12/2017 12:00 AM CDT [id number] PREOPERATIVE DIAGNOSIS Foreign body (glass) right hand. FINAL DIAGNOSIS Foreign body glass right hand. PROCEDURE Exploration, removal and irrigation and debridement of right hand wound. SURGEON Annette Arevalo MD ANESTHESIA Scalene block, MAC PROCEDURE Patient was brought to the operating room and positioned. The block was administered by Dr. Gtz. After adequate anesthesia was obtained, the patient was then positioned and the arm was sterilely prepped and draped. After further sedation was given, the patient had a small amount of local anestheticinstilled to the wound area. Following this, an initial irrigation and debridement was done of the ragged laceration. The incision was opened up more distally and retractors were placed. C-arm was rolled into place. The glass had migrated already deeper than the previous x-rays to be between the 3rd and 4th metacarpals and deeply imbedded into the muscle. Retractors were used to carefully retract neurovascular structures. With x-ray control and a small mosquito, the fragment of glass was grasped and this was carefully withdrawn moving tissue so as not to lacerate. The glass fragment was then removed without too much difficulty. The area was irrigated and further x-rays demonstrated no further radiopaque fragments present. The wound was then further debrided and irrigated copiously with Betadine solution and saline. The patient then had the area sutured with 4-0 nylon and a sterile dressing and a splint cast was applied. He was then released from the tourniquet and brought to the recovery room in satisfactory condition having tolerated the surgery well. Annette Arevalo M.D./magaly Electronically Signed By: ANNETTE AREVALO MD On: 03/15/2017 08:13 AM Source: [facility] [email or web address] Document Id: [id number] Op Note - Mery Gtz M.D. - 03/12/2017 12:00 AM CDT anes pre Document Contains Addenda Addendum by MERY GTZ MD on March 12, 2017 17:29 CDT * Required STATUS [x] FINALIZED [_] PROCEDURE CANCELLED PROCEDURE DATE 03/12/2017 ASA PHYSICAL STATUS * ASA 2E ANESTHETIC / SEDATION PLAN * [_] General Anesthesia [_] Combined General / Regional Anesthesia [x] Regional Anesthesia [_] Monitored Anesthesia Care [_] Sedation Care - RN COMMENTS juan block IDENTIFICATION [x] Patient identified * [x] Procedure Verified * [x] Site Verified * NPO STATUS [x] NPO Verified PHYSICAL ASSESSMENT T, P, RR and SpO2 No qualifying data available. BP No qualifying data available. Airway * Thyromental Distance: 3 fingers Neck ROM: full Jaw Openin fingers Mallampati Classification: 2 Dentition: intact Cardiovascular * NSR Pulmonary * clear Other _ LABS WITHIN 72 HOURS No qualifying data available. No qualifying data available. ADDITIONAL FINDINGS OR HISTORY _ HISTORY AND PHYSICAL UPDATE [x] Assessment of patient history, patient exam, medications, allergies and previous anesthetic history reviewed on this date. * [x] Patient was seen, evaluated and approved for anesthesia / sedation. * [_] Discussed risk of potential decreased hormonal contraceptive efficacy following specific anesthesia medications Select one of the following: * [x] Discussed risks / benefits / alternatives of anesthesia / sedation and obtained informed consent. [_] Emergency exception: consent implied due to medical emergency and inability to obtain timely consent from the patient or an alternative decision maker Modified by and Electronically Signed by: MERY GTZ MD On: 03/12/2017 05:29 PM PREANESTHESIA EVALUATION * Required PROCEDURE INFORMATION Proceduralist _[facility] Pre-Procedure Indication right hand foreign body Procedure Planned excision of FB right hand Surgeon Requested Anesthesia Type juan block HEIGHT AND WEIGHT MEASUREMENTS Height: 175.26 03/12/17 Actual Weight: 75 03/12/17 Body Mass Index: 24.42 03/12/17 ALLERGY LIST azithromycin (Hives) doxycycline (Nausea & vomiting) PROBLEM LIST Bipolar I Disorder, Most Recent Episode (Or Current) Unspecified Constipation, Unspecified Unspecified Sleep Disturbance Tic Disorder, 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 ceFAZolin: Pharmacy to dose, IVPB, PREOP. droperidol: 0.625 mg, IV Push, q24hr, PRN: Nausea/vomiting. HYDROcodone-acetaminophen: 1 tab-2 tab(s), PO, q4hr, PRN: Pain. Lactated Ringers, Intravenous 1000 mL: 100 mL/hr, IV. Lactated Ringers, Intravenous 1000 mL: 100 mL/hr, IV. LORazepam: 0.5 mg, IV Push, q4hr, PRN: Agitation. morphine: 1 mg-2 mg, IV Push, q1hr, PRN: Pain. morphine: 2 mg, IV Push, q2hr, PRN: Pain / Discomfort. naloxone: 0.2 mg, IV Push, PRN, PRN: Opiate reversal. ondansetron: 4 mg, IV Push, q24hr, PRN: Nausea/vomiting. ondansetron: 4 mg, IV Push, q6hr, PRN: Nausea/vomiting. promethazine: 6.25 mg, IV Push, PRN, PRN: Nausea/vomiting. Sodium Chloride 0.9%: 250 mL, IVPB, q24hr, PRN: Nausea/vomiting. Sodium Chloride 0.9% 1000 mL: 150 mL/hr, IV. Medications Inactivated in the Last 72 Hours fentaNYL: 100 mcg, 2 mL, Pyxis, Once. HYDROcodone-acetaminophen: 2 tab(s), PO, Once. HYDROcodone-acetaminophen: 1 to 2 tabs, PO, q4hr, PRN: Pain. ibuprofen: See Instructions, prn, per mom. lidocaine: 20 mL, Pyxis, Once. lidocaine: 50 mL, Pyxis, Once. LORazepam: 1 mg, 0.5 mL, IV Push, Once. LORazepam: 2 mg, 1 mL, Pyxis, Once. midazolam: 2 mg, 2 mL, Pyxis, Once. morphine: 4 mg, 1 mL, Pyxis, Once. morphine: 4 mg, 1 mL, IV Push, Once. ondansetron: 4 mg, 1 tab(s), PO, Once. ondansetron: 4 mg, 2 mL, IV Push, Once. ondansetron: 4 mg, 2 mL, Pyxis, Once. propofol: 500 mg, 50 mL, Pyxis, Once. Rx Communication Order w/o task: 1 each, Transfer, Message, Once. Sodium Chloride 0.9%: 1,000 mL, 1000 mL/hr, IVPB, Once. sodium chloride 0.9% 1,000 mL: 150 mL/hr, IV. PROCEDURE LIST Cystourethroscopy: 06/22/03 Tonsillectomy: 10/31/97 Cystoscopy, ureteral meatotomy: 07/18/97 Adenoidectomy: 05/05/96 Repair, Laceration (R) hand 5th finger: 03/23/96 Myringotomy w tubes, right: 05/21/95 Repair inguinal hernia, right: 03/13/94 Circumcision LAB AND DIAGNOSTICS (selected) CBC No qualifying data available. BMP No qualifying data available. No qualifying data available. LFT No qualifying data available. INR No qualifying data available. HgbA1c No qualifying data available. Thyroid No qualifying data available. ECG _ Other _ DATE OF HISTORY AND PHYSICAL EXAM * 03/12/2017 CURRENT / PAST MEDICAL AND SURGICAL HISTORY [x] Within Normal Limits Unless Otherwise Specified Cardiovascular [_] Functional Capacity less than 4 METS [_] Symptoms on Exertion [_] Hypertension [_] Hyperlipidemia/Dyslipidemia [_] Coronary Artery Disease [_] History of Myocardial Infarction [_] Peripheral Vascular Disease Respiratory / Pulmonary [x] Nicotine/Tobacco use [_] Asthma [_] Chronic Obstructive Lung Disease [_] Obstructive Sleep Apnea Renal / Urinary and Reproductive [_] Chronic or Acute Kidney Disease Endocrine [_] Diabetes [_] Hypothyroidism Neurologic [_] Cerebrovascular Disease [_] History of Stroke [_] History of Seizure [_] Parkinsons Disease Psychiatric / Social [_] Alcohol/Other Substance Abuse [x] Depression/Anxiety-bipolar Musculoskeletal [_] Degenerative Joint Disease/Osteoarthritis Gastrointestinal / Hepatobiliary [_] Gastroesophageal Reflux Disease Hematology [_] Anemia [_] Increased Risk of Hemorrhage Obstetric / Gynecologic _ ENT [_] History of airway surgery Infectious Disease [_] MRSA Anesthesia [_] Malignant Hyperthermia [_] Pseudocholinesterase Deficiency [_] History of Difficult Airway [_] History of PONV Other _ Electronically Signed By: MERY GTZ MD On: 03/12/2017 05:27 PM Source: [employer] Document Id: [id number] Op Note - Mery Gtz M.D. - 03/12/2017 12:00 AM CDT anes post POSTANESTHESIA ASSESMENT T, P, RR, and SpO2 VITAL SIGNS Temperature Core: 36.9 Heart Rate Monitored: 102 High Peripheral Pulse Rate: 99 Respiratory Rate: 17 SpO2: 99 BP BLOOD PRESSURE Systolic Blood Pressure: 118 Diastolic Blood Pressure: 69 Cardiovascular Status [x] Hemodynamics (HR and BP) acceptable [_] Hemodynamics (HR and BP) unacceptable requiring ongoing treatment Respiratory Support [x] Patent airway with unassisted ventilation [_] Patent airway with the need for PAP therapy (CPAP, BPAP) [_] Mechanically ventilated Oxygen Requirements [x] Room air [_] Nasal cannula [_] Closed face mask [_] Assisted ventilation (noninvasive or mechanical) with supplemental oxygen [_] Other: _ Level of Consciousness [x] Awake [_] Sedated, but awakens easily [_] Sedated, difficult to awake, patient unable to participate in evaluation [_] Unconscious, patient unable to participate in evaluation Temperature [x] Normothermic [_] Hypo or hyperthermic requiring ongoing treatment Pain [x] Adequately controlled and/or at baseline [_] Requiring further management [_] Unable to be assessed Nausea/Vomiting [x] No [_] Yes, treated as necessary Intravascular Volume Status [x] Euvolemic [_] Hypo or hypervolemic requiring ongoing treatment Anesthesia Observations [x] None apparent [_] Refractory nausea and vomiting [_] Dental/Oral injury [_] Eye injury [_] New or changed neurologic deficit [_] Other (Document in comments) Disposition [_] General care unit [x] Monitored care unit (ICU, PCU, ED, etc.), expectation for recovery time deferred to receiving unit [_] Dismissal [_] Other: _ Comments _ Electronically Signed By: MERY GTZ MD On: 03/12/2017 11:51 PM [facility] Document Id: [id number] documented in this encounter Miscellaneous Notes Telephone Encounter - Conversion, Historical Provider Ser - 03/18/2017 11:50 AM CDT *Phone Message Document Contains Addenda Addendum by BRIDGET BAILON on March 18, 2017 13:07:35 CDT Appt scheduled for 03/23/17 Addendum by THEO ROLAND LPN on March 18, 2017 13:04:50 CDT From: THEO ROLAND LPN ( Orthopedic Nurse) To: Specialty Surgical Services Button Machine Operator; Sent: 03/18/2017 13:04:50 CDT Subject: FW: *Phone Message Addendum by THEO ROLAND LPN on March 18, 2017 13:04:40 CDT Message left for patient that Dr. Arevalo has been made aware of finger and will address it on Wednesday at 1pm for his post op visit. Scheduling-please book patient at 1pm on 03/22/17 thank you! Addendum by BOWEN DUPREE RN on March 18, 2017 11:59:22 CDT From: BOWEN DUPREE RN ( Surgical Services Triage Nurse) To: Orthopedic Nurse; Sent: 03/18/2017 11:59:22 CDT Subject: RE: *Phone Message Lilian, patient's mom states that since surgery the patient has had no feeling at all in his middle finger. Patient wanted Dr. Arevalo to be aware of the situation. That is the only post-op concern that the patient currently has. Lilian can be reached at [phone] if needed. She would like a call regarding a post-op appointment time. Message forwarded to the Orthopedic nurse pool to please inform Dr. Arevalo of the concern with the patient's finger. Thank you! From: ROBBIE REYES ( Specialty Surgical Services Button Machine Operator) To: Orthopedic Nurse; Surgical Services Triage Nurse; Sent: 03/18/2017 11:50:29 CDT Subject: *Phone Message Caller is: ( ) Patient ( x) Mother ( ) Father ( ) Spouse ( ) Daughter ( ) Son ( ) Pharmacy ( ) Other: Physician: Irina Patient MRN #: Reason for Call: Patient's mom called to say the patient is having some issues with a surgery he hadlast Wednesday by Dr. Arevalo. I transferred mom through to triage, if she can't hold long enough she saidshe would leave a message. I am sending this message to Triage and Ortho. Patient's mom is wanting to know when the patient should be coming in for a follow up with Dr. Arevalo to get his stiches out. We will need a date and time due to Dr. Arevalo booking out further than what this patient may need to be seen. Message: Advice/Action: Source used: ( ) Verbalizes understanding of instructions ( ) Instructed to call back if symptoms worsen or do not resolve ( ) Refused to see provider ( ) Appointment Scheduled ( ) OK to leave message on voice mail ( ) Patient told to expect return call: ( ) today ( ) tomorrow ( ) next work day ( ) Patient's email ( ) Patient told physician out of office, will call upon return call on ( ) ( ) Patient told physician out of office, routed to other physician ( ) Other ( ) Call back telephone number ( ) Call back cell phone number ( ) [facility] Document Id: [id number] Miscellaneous - Conversion, Historical Provider Ser - 03/12/2017 9:57 PM CDT Coding Summary-Paper Based CODING DATE: 03/24/2017 FINAL [facility] STATUS: * Discharged to Home or Self Care PAYOR: Medicare APC DESCRIPTION 5071 Level 1 Excision/ Biopsy/ Incision and Drainage ADMIT DX: REASON FOR VISIT DX: FINAL DX: PRINCIPAL: S61.421A Laceration with foreign body of right hand, initial encounter SECONDARY: F31.9 Bipolar disorder, unspecified W22.8XXA Striking against or struck by other objects, initial encounter PYMT PROC APC STAT DESCRIPTION DOCTOR NAME DATE [facility]PLOR[facility] 03/12/2017 WOUND SPX EXTREMITY RT RIGHT SIDE (USED TO IDENTIFY PROCEDURES PERFORMED ON THE RIGHT SIDE OF THE BODY) NOTE: The code number assigned matches the documented diagnosis and / or procedure in the patient's chart. However, the narrative phrase printed from the coding software may appear abbreviated, or result in slightly different terminology. Coded By: KATIE WOOD Date Saved: 03/24/2017 09:21 am Source: [facility] Document Id: [id number] Miscellaneous - Feli Gandhi RJacielNJaciel - 03/12/2017 9:37 PM CDT Hospital Patient Education The following Patient Education Materials have been given to the patient: Patient Education Materials: Orthopaedics After Hand Surgery Orthopaedics After Hand Surgery After surgery, the better you take care of yourself-especially your hand-the sooner it will heal. Follow your surgeons instructions. Try not to bump your hand, and dont move or lift anything while youre still wearing bandages, a splint, or a cast. Care for your hand ?? Keep your hand elevated above heart level as much as possible for the first several days after surgery. This helps reduce swelling and pain. ?? To help prevent infection and speed healing, take care not to get your cast or bandages wet. Keep your hand dry Elevate your hand Relieve pain as directed Your surgeon may prescribe pain medication or suggest you take an anti- inflammatory medication. You might also be instructed to apply ice (or another cold source) to your hand. If you use ice cubes, put them in a plastic bag and rest it on top of your bandages. Leave the cold source on your hand for as long as its comfortable. Do this several times a day for the first few days after surgery. It may take several minutes before you can feel the cold through the cast or bandages. Follow up with your surgeon During a follow-up visit after surgery, your surgeon will check your progress. The stitches, bandages, splint, or cast may be removed. Or a new cast or splint may be placed. If your hand has healed enough, your surgeon may prescribe exercises. Do prescribed hand exercises Your surgeon may recommend that you do exercises. These may be done under the guidance of a physicaltherapist. The exercises strengthen your hand, help you regain flexibility, and restore proper function. Do the exercises as advised. Call your surgeon if you have... A fever higher than 100??F taken by mouth. Side effects from your medication, such as prolonged nausea. A wet or loose dressing, or a dressing that is too tight. Excessive bleeding. Increased, ongoing pain or numbness. Signs of infection (such as drainage, warmth, or re dness) at the incision site. ?? [id number] [place] [address]. All rights reserved. This information is not intended as a substitute for professional medical care. Always follow your healthcare professional's instructions. This document has images extracted. Please consider using [employer] for all your patient education needs. Source: [facility] POWERCHART Document Id: [id number] Miscellaneous - Feli Gandhi R.N. - 03/12/2017 8:45 PM CDT Adult Postprocedure Assessment Adult Postprocedure Assessment Entered On: 03/12/2017 20:58 CDT Performed On: 03/12/2017 20:45 CDT by FELI GANDHI RN Vital Signs Temperature Core : 36.8 DegC(Converted to: 98.2 DegF) Peripheral Pulse Rate : 99 /min Respiratory Rate : 17 /min Systolic Blood Pressure : 121 mmHg Diastolic Blood Pressure : 83 mmHg NIBP Mean : 96 mmHg BP Location : Left upper extremity SpO2 : 99 % Oxygen Saturation Monitoring Frequency : Continuous Oxygen Therapy : Room air Height : 175.26 cm(Converted to: 5 ft 9 inch(es)) FELI GANDHI RN - 03/12/2017 20:54 CDT General Level of Consciousness : Alert Orientation : Oriented x 3 Skin Color : Normal for ethnicity Skin Description : Dry Skin Temperature : Warm Pain Symptoms : Yes FELI GANDHI RN - 03/12/2017 20:54 CDT Pain Scale Pain Scale Verbal 0-10 : Open FELI GANDHI RN - 03/12/2017 20:54 CDT Pain Pain Assessment Grid Pain 1 Location : Hand Laterality : Right Intensity : 9 Time Pattern : Acute Quality : Unable to describe Pain Radiation : No Aggravating Factors : None Alleviating Factors : Medication Associated Symptoms : None Interventions : MD notified, Medications, Repositioning, Rest FELI GANDHI RN - 03/12/2017 20:54 CDT Respiratory Respiratory Patient Stated Symptoms : None Respirations : Unlabored Distress : None Respiratory Pattern : Regular All Lobes Breath Sounds : Clear Cough and Deep Breathe : Done Cough : None Suction : None Airway : Patent FELI GANDHI RN - 03/12/2017 20:54 CDT Integumentary Integumentary Patient Stated Symptoms : None Skin Turgor : Elastic Skin Integrity : Not intact Mucous Membrane Color : [place] Mucous Membrane Description : Moist Skin Color : Normal for ethnicity Skin Description : Dry Skin Temperature : Warm FELI GANDHI RN - 03/12/2017 20:54 CDT Incision/Wound Incision/Wound Care Grid Activity : Assessed Dressing Type : Laceration Location : Hand Laterality : Right Drainage : None Wound Dressing : 4x4's, Other: dionicio wrap Neurovascular Status : Neurovascular intact distal to injury, Pulses distal to injury palpable, Skindistal to injury warm and pink FELI GANDHI RN - 03/12/2017 20:54 CDT Peripheral IV Peripheral IV Assess/Intervention Grid Peripheral IV #1 IV Activity : Assessment Date of Insertion : 03/12/2017 CDT IV Site : Antecubital Laterality : Left Site Condition : No complications Drainage Description : None Infiltration Score : 0 Phlebitis Score : 0 Dressing/ Activity : Dry, Intact, Transparent, Reinforced Flow/ Patency : No complications FELI GANDHI 03/12/2017 20:54 CDT Lower Extremity Nail Bed Color Feet Grid Left Foot : [place] Right Foot : [place] FELI GANDHI 03/12/2017 20:54 CDT Capillary Refill Feet Grid Left Foot : < 2 seconds Right Foot : < 2 seconds FELI GANDHI 03/12/2017 20:54 CDT NV Lower Extremity Color Grid Left : [place] Right : [place] FELI GANDHI 03/12/2017 20:54 CDT NV Lower Extremity Temperature Grid Left : Warm Right : Warm FELI GANDHI RN 03/12/2017 20:54 CDT Lower Extremity Peripheral Pulses Grid Posttibial Pulse, Left : 2+ Normal Posttibial Pulse, Right : 2+ Normal Dorsalis Pedis Pulse, Left : 2+ Normal Dorsalis Pedis Pulse, Right : 2+ Normal FELI GANDHI 03/12/2017 20:54 CDT Lower Extremity Sensation NV Grid Medial/Lateral Surfaces Sole of Left Foot : Intact Medial/Lateral Surfaces Sole of Right Foot : Intact Web Space Between Great and Second Toe Left Foot : Intact Web Space Between Great and Second Toe Right Foot : Intact FELI GANDHI 03/12/2017 20:54 CDT Lower Extremity Strength NV Grid Plantar Flexion Left Foot : Normal 5 Plantar Flexion Right Foot : Normal 5 Dorsiflex Foot/Extend Toes Left : Normal 5 Dorsiflex Foot/Extend Toes Right : Normal 5 FELI GANDHI 03/12/2017 20:54 CDT Upper Extremity Nail Bed Color Hands Grid Left Hand : Naschitti Right Hand : Naschitti FELI GANDHI 03/12/2017 20:54 CDT Capillary Refill Hand Grid Left Hand : < 2 seconds Right Hand : < 2 seconds FELI GANDHI 03/12/2017 20:54 CDT Upper Extremity Color Grid Left : Naschitti Right : Naschitti FELI GANDHI RN 03/12/2017 20:54 CDT Upper Extremity Temperature Grid Left : Warm Right : Warm FELI GANDHI RN - 03/12/2017 20:54 CDT NV Upper Extremity Pulses Grid Radial Pulse, Left : 2+ Normal Radial Pulse, Right : 2+ Normal FELI GANDHI RN - 03/12/2017 20:54 CDT NV Upper Extremity Sensation Grid Dorsal Web Space Thumb/Index Finger Right : Numbness Distal Fat Pad/Small Finger Right : Numbness Distal Fat Pad/Index Finger Right : Numbness FELI GANDHI RN - 03/12/2017 20:54 CDT NV Upper Extremity Strength Grid Wrist/Thumb Extension Right : Poor 2 Abduction Fingers Right : Poor 2 Thumb/Small Finger Touch, Wrist Flex Right : Poor 2 FELI GANDHI RN - 03/12/2017 20:54 CDT Effected Upper Extremity Pain : Unrelieved by appropriate narcotics FELI GANDHI RN - 03/12/2017 20:54 CDT PARSAP Activity Status : Moves 4 extremities voluntarily or on command Dressing : Dry and clean Respiratory Component : Able to deep breathe and cough freely Pain : Severe pain requires parenteral medication Circulation Component : BP 20% of preanesthetic level Ambulation : Able to stand up and walk straight Consciousness : Fully awake Fasting and Feeding : Able to drink fluids Oxygen Saturation - Sedation : Can maintain > 92% on room air Urine Output, PARSAP : Has voided PARSAP Score : 18 FELI GANDHI RN - 03/12/2017 20:54 CDT Zepeda Zepeda Agitation Sedation Scale (RASS) : Alert and calm RASS Score : 0 FELI GANDHI RN - 03/12/2017 20:54 CDT [email or web address] P[facility] Document Id: [id number] CDT!145 Miscellaneous - Feli Gandhi R.N. - 03/12/2017 8:15 PM CDT Adult Postprocedure Assessment Adult Postprocedure Assessment Entered On: 03/12/2017 20:41 CDT Performed On: 03/12/2017 20:15 CDT by FELI GANDHI RN Vital Signs Temperature Core : 36.6 DegC(Converted to: 97.9 DegF) Peripheral Pulse Rate : 85 /min Respiratory Rate : 17 /min Systolic Blood Pressure : 132 mmHg Diastolic Blood Pressure : 67 mmHg NIBP Mean : 89 mmHg BP Location : Left upper extremity SpO2 : 99 % Oxygen Saturation Monitoring Frequency : Continuous Oxygen Therapy : Room air Height : 175.26 cm(Converted to: 5 ft 9 inch(es)) GANDHI FELI C RN 03/12/2017 20:37 CDT General Level of Consciousness : Alert Orientation : Oriented x 3 Skin Color : Normal for ethnicity Skin Description : Dry Skin Temperature : Warm Pain Symptoms : Yes FELI GANDHI RN - 03/12/2017 20:37 CDT Pain Scale Pain Scale Verbal 0-10 : Open FELI GANDHI RN 03/12/2017 20:37 CDT Pain Pain Assessment Grid Pain 1 Location : Hand Laterality : Right Intensity : 9 Time Pattern : Acute Quality : Unable to describe Pain Radiation : No Aggravating Factors : None Alleviating Factors : None Associated Symptoms : None Interventions : MD notified, Medications, Repositioning, Rest FELI GANDHI RN 03/12/2017 20:37 CDT Respiratory Respiratory Patient Stated Symptoms : None Respirations : Unlabored Distress : None Respiratory Pattern : Regular All Lobes Breath Sounds : Clear Cough and Deep Breathe : Done Cough : None Sputum Amount : None Suction : None Airway : Patent GANDHIFELI POSADA RN - 03/12/2017 20:37 CDT Integumentary Integumentary Patient Stated Symptoms : None Skin Turgor : Elastic Skin Integrity : Not intact Mucous Membrane Color : Naschitti Mucous Membrane Description : Moist Skin Color : Normal for ethnicity Skin Description : Dry Skin Temperature : Warm FELI GANDHI RN 03/12/2017 20:37 CDT Incision/Wound Incision/Wound Care Grid Activity : Assessed Dressing Type : Laceration Location : Hand Laterality : Right Drainage : None Wound Dressing : 4x4's, Other: dionicio wrap Neurovascular Status : Pulses distal to injury palpable, Skin distal to injury warm and pink FELI GANDHI RN 03/12/2017 20:37 CDT Peripheral IV Peripheral IV Assess/Intervention Grid Peripheral IV #1 IV Activity : Assessment Date of Insertion : 03/12/2017 CDT IV Site : Antecubital Laterality : Left Site Condition : No complications Drainage Description : None Infiltration Score : 0 Phlebitis Score : 0 Dressing/ Activity : Dry, Intact, Transparent, Reinforced Flow/ Patency : No complications FELI GANDHI 03/12/2017 20:37 CDT I&O Oral Intake : 120 mL Urine Voided : 350 mL FELI GANDHI Sherry 03/12/2017 20:37 CDT Neurologic Swallowing Difficulty/Aspiration Risk : None Extremity Movement : Unequal Facial Symmetry : Symmetric Characteristics of Speech : Appropriate for age FELI GANDHI Sherry 03/12/2017 20:37 CDT Neurological Strengths Grid Right Upper Extremity Strength : Weak Tone : Normal Sensation : Decreased CAITLYN GANDHICaron Powell 03/12/2017 20:37 CDT Lower Extremity Nail Bed Color Feet Grid Left Foot : Naschitti Right Foot : Naschitti CAITLYN GANDHICaron Powell 03/12/2017 20:37 CDT Capillary Refill Feet Grid Left Foot : < 2 seconds Right Foot : < 2 seconds SANDEE FEILCaron Powell RN 03/12/2017 20:37 CDT NV Lower Extremity Color Grid Left : Naschitti Right : Naschitti SANDEE FELI C 03/12/2017 20:37 CDT NV Lower Extremity Temperature Grid Left : Warm Right : Warm FELI GANDHI Sherry 03/12/2017 20:37 CDT Lower Extremity Peripheral Pulses Grid Posttibial Pulse, Left : 2+ Normal Posttibial Pulse, Right : 2+ Normal Dorsalis Pedis Pulse, Left : 2+ Normal Dorsalis Pedis Pulse, Right : 2+ Normal CAITLYN GANDHICaron Powell 03/12/2017 20:37 CDT Lower Extremity Sensation NV Grid Medial/Lateral Surfaces Sole of Left Foot : Intact Medial/Lateral Surfaces Sole of Right Foot : Intact Web Space Between Great and Second Toe Left Foot : Intact Web Space Between Great and Second Toe Right Foot : Intact FELI GANDHI Sherry 03/12/2017 20:37 CDT Lower Extremity Strength NV Grid Plantar Flexion Left Foot : Normal 5 Plantar Flexion Right Foot : Normal 5 Dorsiflex Foot/Extend Toes Left : Normal 5 Dorsiflex Foot/Extend Toes Right : Normal 5 FELI GANDHI Sherry 03/12/2017 20:37 CDT Upper Extremity Nail Bed Color Hands Grid Left Hand : Naschitti Right Hand : Naschitti GANDHI FELI C 03/12/2017 20:37 CDT Capillary Refill Hand Grid Left Hand : < 2 seconds Right Hand : < 2 seconds FELI GANDHI RN 03/12/2017 20:37 CDT Upper Extremity Color Grid Left : Naschitti Right : Naschitti FELI GANDHI RN - 03/12/2017 20:37 CDT Upper Extremity Temperature Grid Left : Warm Right : Warm FELI GANDHI RN - 03/12/2017 20:37 CDT NV Upper Extremity Pulses Grid Radial Pulse, Left : 2+ Normal Radial Pulse, Right : 2+ Normal FELI GANDHI - 03/12/2017 20:37 CDT NV Upper Extremity Sensation Grid Dorsal Web Space Thumb/Index Finger Right : Numbness Distal Fat Pad/Small Finger Right : Numbness Distal Fat Pad/Index Finger Right : Numbness FELI GANDHI RN - 03/12/2017 20:37 CDT NV Upper Extremity Strength Grid Wrist/Thumb Extension Right : Poor 2 Abduction Fingers Right : Poor 2 Thumb/Small Finger Touch, Wrist Flex Right : Poor 2 FELI GANDHI - 03/12/2017 20:37 CDT Effected Upper Extremity Pain : Unrelieved by appropriate narcotics FELI GANDHI - 03/12/2017 20:37 CDT PARSAP Dressing : Dry and clean Respiratory Component : Able to deep breathe and cough freely Pain : Severe pain requires parenteral medication Circulation Component : BP 20% of preanesthetic level Ambulation : Able to stand up and walk straight Consciousness : Fully awake Fasting and Feeding : Able to drink fluids Oxygen Saturation - Sedation : Can maintain > 92% on room air Urine Output, PARSAP : Has voided FELI GANDHI - 03/12/2017 20:37 CDT Zepeda Zepeda Agitation Sedation Scale (RASS) : Alert and calm RASS Score : 0 FELI GANDHI RN - 03/12/2017 20:37 CDT [facility] Document Id: [id number] CDT!157 Miscellaneous - Feli Gandhi R.N. - 03/12/2017 8:00 PM CDT Adult Postprocedure Assessment Adult Postprocedure Assessment Entered On: 03/12/2017 20:15 CDT Performed On: 03/12/2017 20:00 CDT by FELI GANDHI RN Vital Signs Temperature Core : 36.6 DegC(Converted to: 97.9 DegF) Peripheral Pulse Rate : 89 /min Respiratory Rate : 21 /min (HI) Systolic Blood Pressure : 123 mmHg Diastolic Blood Pressure : 96 mmHg (>HHI) NIBP Mean : 105 mmHg BP Location : Left upper extremity SpO2 : 95 % Oxygen Saturation Monitoring Frequency : Continuous Oxygen Therapy : Room air Height : 175.26 cm(Converted to: 5 ft 9 inch(es)) FELI GANDHI RN - 03/12/2017 20:10 CDT General Level of Consciousness : Alert Orientation : Oriented x 3 Skin Color : Normal for ethnicity Skin Description : Dry Skin Temperature : Warm Pain Symptoms : Yes FELI GANDHI RN - 03/12/2017 20:10 CDT Pain Scale Pain Scale Verbal 0-10 : Open FELI GANDHI RN - 03/12/2017 20:10 CDT Pain Pain Assessment Grid Pain 1 Location : Hand Laterality : Right Intensity : 9 Time Pattern : Acute Quality : Unable to describe Pain Radiation : No Aggravating Factors : None Alleviating Factors : None Associated Symptoms : None Interventions : MD notified, Medications, Repositioning, Rest FELI GANDHI RN - 03/12/2017 20:10 CDT Respiratory Respiratory Patient Stated Symptoms : None Respirations : Unlabored Distress : None Respiratory Pattern : Regular All Lobes Breath Sounds : Clear Cough : None Sputum Amount : None Suction : None Airway : Patent FELI GANDHI RN - 03/12/2017 20:10 CDT Integumentary Integumentary Patient Stated Symptoms : None Skin Turgor : Elastic Skin Integrity : Not intact Mucous Membrane Color : Naschitti Mucous Membrane Description : Moist Skin Color : Normal for ethnicity Skin Description : Dry Skin Temperature : Warm FELI GANDHI RN - 03/12/2017 20:10 CDT Incision/Wound Incision/Wound Care Grid Activity : Assessed Dressing Type : Laceration Location : Hand Laterality : Right Drainage : None Wound Dressing : 4x4's, Other: dionicio wrap Neurovascular Status : Pulses distal to injury palpable, Skin distal to injury warm and pink FELI GANDHI RN - 03/12/2017 20:10 CDT Peripheral IV Peripheral IV Assess/Intervention Grid Peripheral IV #1 IV Activity : Assessment Date of Insertion : 03/12/2017 CDT IV Site : Antecubital Laterality : Left Site Condition : No complications Drainage Description : None Infiltration Score : 0 Phlebitis Score : 0 Dressing/ Activity : Dry, Intact, Transparent, Reinforced Flow/ Patency : No complications CAITLYN GANDHICaron Powell 03/12/2017 20:10 CDT Lower Extremity Nail Bed Color Feet Grid Left Foot : Naschitti Right Foot : Naschitti SANDEEFELI 03/12/2017 20:10 CDT Capillary Refill Feet Grid Left Foot : < 2 seconds Right Foot : < 2 seconds GANDHIFELI 03/12/2017 20:10 CDT NV Lower Extremity Color Grid Left : Naschitti Right : Naschitti GANDHIFELI 03/12/2017 20:10 CDT NV Lower Extremity Temperature Grid Left : Warm Right : Warm GANDHIFELI POSADA 03/12/2017 20:10 CDT Lower Extremity Peripheral Pulses Grid Posttibial Pulse, Left : 2+ Normal Posttibial Pulse, Right : 2+ Normal Dorsalis Pedis Pulse, Left : 2+ Normal Dorsalis Pedis Pulse, Right : 2+ Normal FELI GANDHI 03/12/2017 20:10 CDT Lower Extremity Sensation NV Grid Medial/Lateral Surfaces Sole of Left Foot : Intact Medial/Lateral Surfaces Sole of Right Foot : Intact Web Space Between Great and Second Toe Left Foot : Intact Web Space Between Great and Second Toe Right Foot : Intact GANDHIFELI 03/12/2017 20:10 CDT Lower Extremity Strength NV Grid Plantar Flexion Left Foot : Normal 5 Plantar Flexion Right Foot : Normal 5 Dorsiflex Foot/Extend Toes Left : Normal 5 Dorsiflex Foot/Extend Toes Right : Normal 5 GANDHIFELI POSADA 03/12/2017 20:10 CDT Upper Extremity Nail Bed Color Hands Grid Left Hand : Naschitti Right Hand : Naschitti FELI GANDHI 03/12/2017 20:10 CDT Capillary Refill Hand Grid Left Hand : < 2 seconds Right Hand : < 2 seconds FELI GANDHI 03/12/2017 20:10 CDT Upper Extremity Color Grid Left : Naschitti Right : Naschitti FELI GANDHI RN 03/12/2017 20:10 CDT Upper Extremity Temperature Grid Left : Warm Right : Warm FELI GANDHI 03/12/2017 20:10 CDT NV Upper Extremity Pulses Grid Radial Pulse, Left : 2+ Normal Radial Pulse, Right : 2+ Normal FELI GANDHI RN - 03/12/2017 20:10 CDT NV Upper Extremity Sensation Grid Dorsal Web Space Thumb/Index Finger Right : Numbness Distal Fat Pad/Small Finger Right : Numbness Distal Fat Pad/Index Finger Right : Numbness FELI GANDHI RN - 03/12/2017 20:10 CDT NV Upper Extremity Strength Grid Wrist/Thumb Extension Right : Poor 2 Abduction Fingers Right : Poor 2 Thumb/Small Finger Touch, Wrist Flex Right : Poor 2 FELI GANDHI RN - 03/12/2017 20:10 CDT Effected Upper Extremity Pain : Unrelieved by appropriate narcotics FELI GANDHI RN - 03/12/2017 20:10 CDT PARSAP Activity Status : Moves 4 extremities voluntarily or on command Dressing : Dry and clean Respiratory Component : Able to deep breathe and cough freely Pain : Severe pain requires parenteral medication Circulation Component : BP 20% of preanesthetic level Ambulation : Able to stand up and walk straight Consciousness : Fully awake Fasting and Feeding : Able to drink fluids Oxygen Saturation - Sedation : Can maintain > 92% on room air Urine Output, PARSAP : Not assessed PARSAP Score : 18 FELI GANDHI RN - 03/12/2017 20:10 CDT Zepeda Zepeda Agitation Sedation Scale (RASS) : Agitated RASS Score : 2 FELI GANDHI RN - 03/12/2017 20:10 CDT [email or web address] POWERCHART Document Id: [id number] CDT!145 Miscellaneous - Feli Gandhi, R.N. - 03/12/2017 7:45 PM CDT Adult Postprocedure Assessment Adult Postprocedure Assessment Entered On: 03/12/2017 20:03 CDT Performed On: 03/12/2017 19:45 CDT by FELI GANDHI RN Vital Signs Temperature Core : 36.6 DegC(Converted to: 97.9 DegF) Peripheral Pulse Rate : 96 /min Respiratory Rate : 18 /min Systolic Blood Pressure : 123 mmHg Diastolic Blood Pressure : 83 mmHg NIBP Mean : 96 mmHg BP Location : Left upper extremity SpO2 : 96 % Oxygen Saturation Monitoring Frequency : Continuous Oxygen Therapy : Room air Height : 175.26 cm(Converted to: 5 ft 9 inch(es)) FELI GANDHI RN - 03/12/2017 19:57 CDT General Level of Consciousness : Alert Orientation : Oriented x 3 Skin Color : Normal for ethnicity Skin Description : Dry Skin Temperature : Warm Pain Symptoms : Yes FELI GANDHI RN - 03/12/2017 19:57 CDT Pain Scale Pain Scale Verbal 0-10 : Open FELI GANDHI RN - 03/12/2017 19:57 CDT Pain Pain Assessment Grid Pain 1 Location : Hand Laterality : Right Intensity : 9 Time Pattern : Acute Quality : Unable to describe Pain Radiation : No Aggravating Factors : None Alleviating Factors : None Associated Symptoms : None Interventions : MD notified, Medications, Repositioning, Rest FELI GANDHI RN - 03/12/2017 19:57 CDT Respiratory Respiratory Patient Stated Symptoms : None Respirations : Unlabored Distress : None Respiratory Pattern : Regular All Lobes Breath Sounds : Clear Cough : None Sputum Amount : None Suction : None Airway : Patent FELI GANDHI RN - 03/12/2017 19:57 CDT Integumentary Integumentary Patient Stated Symptoms : None Skin Turgor : Elastic Skin Integrity : Not intact Mucous Membrane Color : Naschitti Mucous Membrane Description : Moist Skin Color : Normal for ethnicity Skin Description : Dry Skin Temperature : Warm FELI GANDHI RN - 03/12/2017 19:57 CDT Incision/Wound Incision/Wound Care Grid Activity : Assessed Dressing Type : Laceration Location : Hand Laterality : Right Drainage : None Wound Dressing : 4x4's, Other: dionicio wrap Neurovascular Status : Pulses distal to injury palpable, Skin distal to injury warm and pink FELI GANDHI RN 03/12/2017 19:57 CDT Peripheral IV Peripheral IV Assess/Intervention Grid Peripheral IV #1 IV Activity : Assessment Date of Insertion : 03/12/2017 CDT IV Site : Antecubital Laterality : Left Site Condition : No complications Drainage Description : None Infiltration Score : 0 Phlebitis Score : 0 Dressing/ Activity : Dry, Intact, Transparent, Reinforced Flow/ Patency : No complications FELI GANDHI RN - 03/12/2017 19:57 CDT Lower Extremity Nail Bed Color Feet Grid Left Foot : Naschitti Right Foot : Naschitti FELI GANDHI Sherry 03/12/2017 19:57 CDT Capillary Refill Feet Grid Left Foot : < 2 seconds Right Foot : < 2 seconds FELI GANDHI Sherry 03/12/2017 19:57 CDT NV Lower Extremity Color Grid Left : Naschitti Right : Naschitti CAITLYN GANDHICaron Powell 03/12/2017 19:57 CDT NV Lower Extremity Temperature Grid Left : Warm Right : Warm FELI GANDHI Sherry 03/12/2017 19:57 CDT Lower Extremity Peripheral Pulses Grid Posttibial Pulse, Left : 2+ Normal Posttibial Pulse, Right : 2+ Normal Dorsalis Pedis Pulse, Left : 2+ Normal Dorsalis Pedis Pulse, Right : 2+ Normal CAITLYN GANDHICaron Powell 03/12/2017 19:57 CDT Lower Extremity Sensation NV Grid Medial/Lateral Surfaces Sole of Left Foot : Intact Medial/Lateral Surfaces Sole of Right Foot : Intact Web Space Between Great and Second Toe Left Foot : Intact Web Space Between Great and Second Toe Right Foot : Intact CAITLYN GANDHICaron Powell 03/12/2017 19:57 CDT Lower Extremity Strength NV Grid Plantar Flexion Left Foot : Normal 5 Plantar Flexion Right Foot : Normal 5 Dorsiflex Foot/Extend Toes Left : Normal 5 Dorsiflex Foot/Extend Toes Right : Normal 5 FELI GANDHI Sherry 03/12/2017 19:57 CDT Upper Extremity Nail Bed Color Hands Grid Left Hand : Naschitti Right Hand : Naschitti CAITLYN GANDHICaron Powell 03/12/2017 19:57 CDT Capillary Refill Hand Grid Left Hand : < 2 seconds Right Hand : < 2 seconds CAITLYN GANDHICaron Powell 03/12/2017 19:57 CDT Upper Extremity Color Grid Left : Naschitti Right : Naschitti CAITLYN GANDHICaron Powell 03/12/2017 19:57 CDT Upper Extremity Temperature Grid Left : Warm Right : Warm CAITLYN GANDHICaron Powell 03/12/2017 19:57 CDT NV Upper Extremity Pulses Grid Radial Pulse, Left : 2+ Normal Radial Pulse, Right : 2+ Normal GANDHI FELI C 03/12/2017 19:57 CDT NV Upper Extremity Sensation Grid Dorsal Web Space Thumb/Index Finger Right : Numbness Distal Fat Pad/Small Finger Right : Numbness Distal Fat Pad/Index Finger Right : Numbness FELI GANDHI RN - 03/12/2017 19:57 CDT NV Upper Extremity Strength Grid Wrist/Thumb Extension Right : Poor 2 Abduction Fingers Right : Poor 2 Thumb/Small Finger Touch, Wrist Flex Right : Poor 2 FELI GANDHI RN - 03/12/2017 19:57 CDT Effected Upper Extremity Pain : Unrelieved by appropriate narcotics FELI GANDHI RN - 03/12/2017 19:57 CDT Modified Kina Activity : Moves 4 extremities voluntarily or on command Respiratory : Able to deep breathe and cough freely Circulation : BP +/- 20% of preprocedural level or not unusually high or low Consciousness : Fully awake O2 Saturation : O2 SAT at preprocedural level Kina l Score : 10 FELI GANDHI RN - 03/12/2017 19:57 CDT PARSAP Activity Status : Moves 4 extremities voluntarily or on command Dressing : Dry and clean Respiratory Component : Able to deep breathe and cough freely Pain : Severe pain requires parenteral medication Circulation Component : BP 20% of preanesthetic level Ambulation : Able to stand up and walk straight Consciousness : Fully awake Fasting and Feeding : Able to drink fluids Oxygen Saturation - Sedation : Can maintain > 92% on room air Urine Output, PARSAP : Not assessed PARSAP Score : 18 FELI GANDHI RN - 03/12/2017 19:57 CDT Zepeda Zepeda Agitation Sedation Scale (RASS) : Agitated RASS Score : 2 FELI GANDHI RN - 03/12/2017 19:57 CDT [facility] Document Id: [id number] CDT!152 Miscellaneous - Feli Gandhi RAnna - 03/12/2017 7:30 PM CDT Adult Postprocedure Assessment Adult Postprocedure Assessment Entered On: 03/12/2017 19:57 CDT Performed On: 03/12/2017 19:30 CDT by FELI GANDHI RN Vital Signs Temperature Core : 36.8 DegC(Converted to: 98.2 DegF) Peripheral Pulse Rate : 97 /min Respiratory Rate : 19 /min Systolic Blood Pressure : 120 mmHg Diastolic Blood Pressure : 86 mmHg NIBP Mean : 97 mmHg BP Location : Left upper extremity SpO2 : 94 % Oxygen Saturation Monitoring Frequency : Continuous Oxygen Therapy : Room air Height : 175.26 cm(Converted to: 5 ft 9 inch(es)) FELI GANDHI 03/12/2017 19:53 CDT General Level of Consciousness : Alert Orientation : Not oriented to time Skin Color : Normal for ethnicity Skin Description : Dry Skin Temperature : Warm Pain Symptoms : Yes FELI GANDHI RN 03/12/2017 19:53 CDT Pain Scale Pain Scale Verbal 0-10 : Open FELI GANDHI RN 03/12/2017 19:53 CDT Pain Pain Assessment Grid Pain 1 Location : Hand Laterality : Right Intensity : 9 Time Pattern : Acute Quality : Unable to describe Pain Radiation : No Aggravating Factors : None Alleviating Factors : None Associated Symptoms : None Interventions : MD notified, Medications, Repositioning, Rest FELI GANDHI RN 03/12/2017 19:53 CDT Respiratory Respiratory Patient Stated Symptoms : None Respirations : Unlabored Distress : None Respiratory Pattern : Regular All Lobes Breath Sounds : Clear Cough : None Sputum Amount : None Suction : None Airway : Patent FELI GANDHI RN 03/12/2017 19:53 CDT Integumentary Integumentary Patient Stated Symptoms : None Skin Turgor : Elastic Skin Integrity : Not intact Mucous Membrane Color : Naschitti Mucous Membrane Description : Moist Skin Color : Normal for ethnicity Skin Description : Dry Skin Temperature : Warm FELI GANDHI RN 03/12/2017 19:53 CDT Incision/Wound Incision/Wound Care Grid Activity : Assessed Dressing Type : Laceration Location : Hand Laterality : Right Drainage : None Wound Dressing : 4x4's, Other: dionicio wrap Neurovascular Status : Pulses distal to injury palpable, Skin distal to injury warm and pink FELI GANDHI RN 03/12/2017 19:53 CDT Lower Extremity Nail Bed Color Feet Grid Left Foot : Naschitti Right Foot : Naschitti FELI GANDHI RN 03/12/2017 19:53 CDT Capillary Refill Feet Grid Left Foot : < 2 seconds Right Foot : < 2 seconds FELI GANDHI RN 03/12/2017 19:53 CDT NV Lower Extremity Color Grid Left : Naschitti Right : Naschitti CAITLYN GANDHICaron Powell 03/12/2017 19:53 CDT NV Lower Extremity Temperature Grid Left : Warm Right : Warm CAITLYN GANDHICaron Powell 03/12/2017 19:53 CDT Lower Extremity Peripheral Pulses Grid Posttibial Pulse, Left : 2+ Normal Posttibial Pulse, Right : 2+ Normal Dorsalis Pedis Pulse, Left : 2+ Normal Dorsalis Pedis Pulse, Right : 2+ Normal GANDHIFELI 03/12/2017 19:53 CDT Lower Extremity Sensation NV Grid Medial/Lateral Surfaces Sole of Left Foot : Intact Medial/Lateral Surfaces Sole of Right Foot : Intact Web Space Between Great and Second Toe Left Foot : Intact Web Space Between Great and Second Toe Right Foot : Intact GANDHIFELI 03/12/2017 19:53 CDT Lower Extremity Strength NV Grid Plantar Flexion Left Foot : Normal 5 Plantar Flexion Right Foot : Normal 5 Dorsiflex Foot/Extend Toes Left : Normal 5 Dorsiflex Foot/Extend Toes Right : Normal 5 FELI GANDHI 03/12/2017 19:53 CDT Upper Extremity Nail Bed Color Hands Grid Left Hand : Naschitti Right Hand : Naschitti SANDEE FELI Powell 03/12/2017 19:53 CDT Capillary Refill Hand Grid Left Hand : < 2 seconds Right Hand : < 2 seconds FELI GANDHI 03/12/2017 19:53 CDT Upper Extremity Color Grid Left : Naschitti Right : Naschitti GANDHIFELI 03/12/2017 19:53 CDT Upper Extremity Temperature Grid Left : Warm Right : Warm GANDHIFELI 03/12/2017 19:53 CDT NV Upper Extremity Pulses Grid Radial Pulse, Left : 2+ Normal Radial Pulse, Right : 2+ Normal FELI GANDHI 03/12/2017 19:53 CDT NV Upper Extremity Sensation Grid Dorsal Web Space Thumb/Index Finger Right : Numbness Distal Fat Pad/Small Finger Right : Numbness Distal Fat Pad/Index Finger Right : Numbness FELI GANDHI 03/12/2017 19:53 CDT NV Upper Extremity Strength Grid Wrist/Thumb Extension Right : Poor 2 Abduction Fingers Right : Poor 2 Thumb/Small Finger Touch, Wrist Flex Right : Poor 2 FELI GANDHI RN - 03/12/2017 19:53 CDT Effected Upper Extremity Pain : Unrelieved by appropriate narcotics FELI GANDHI RN - 03/12/2017 19:53 CDT Modified Kina Activity : Moves 4 extremities voluntarily or on command Respiratory : Able to deep breathe and cough freely Circulation : BP +/- 20% of preprocedural level or not unusually high or low Consciousness : Fully awake O2 Saturation : O2 SAT at preprocedural level Kina l Score : 10 FELI GANDHI RN - 03/12/2017 19:53 CDT PARSAP Activity Status : Moves 4 extremities voluntarily or on command Dressing : Dry and clean Respiratory Component : Able to deep breathe and cough freely Pain : Severe pain requires parenteral medication Circulation Component : BP 20% of preanesthetic level Ambulation : Able to stand up and walk straight Consciousness : Fully awake Fasting and Feeding : Able to drink fluids Oxygen Saturation - Sedation : Can maintain > 92% on room air Urine Output, PARSAP : Not assessed PARSAP Score : 18 FELI GANDHI RN - 03/12/2017 19:53 CDT Zepeda Zepeda Agitation Sedation Scale (RASS) : Alert and calm RASS Score : 0 FELI GANDHI RN - 03/12/2017 19:53 CDT Source: [employer] Document Id: [id number] CDT!139 Miscellaneous - Feli Gandhi R.N. - 03/12/2017 7:15 PM CDT Adult Postprocedure Assessment Adult Postprocedure Assessment Entered On: 03/12/2017 19:51 CDT Performed On: 03/12/2017 19:15 CDT by FELI GANDHI RN Vital Signs Temperature Core : 36.6 DegC(Converted to: 97.9 DegF) Peripheral Pulse Rate : 108 /min (HI) Respiratory Rate : 22 /min (HI) Systolic Blood Pressure : 116 mmHg Diastolic Blood Pressure : 98 mmHg (>HHI) NIBP Mean : 104 mmHg BP Location : Left upper extremity SpO2 : 95 % Oxygen Therapy : Room air Height : 175.26 cm(Converted to: 5 ft 9 inch(es)) FELI GANDHI Sherry 03/12/2017 19:41 CDT General Level of Consciousness : Alert Skin Color : Normal for ethnicity Skin Description : Dry Skin Temperature : Warm Pain Symptoms : Yes FELI GANDHI Sherry RODGERS 03/12/2017 19:41 CDT Pain Scale Pain Scale Verbal 0-10 : Open GANDHI FELICaron Powell RN 03/12/2017 19:41 CDT Pain Pain Assessment Grid Pain 1 Location : Hand Laterality : Right Intensity : 10 Time Pattern : Acute Quality : Unable to describe Aggravating Factors : None Alleviating Factors : None Associated Symptoms : None Interventions : MD notified, Medications, Repositioning, Rest CAITLYN GANDHICaron Powell RN 03/12/2017 19:41 CDT Cardiovascular Heart Rhythm : Regular Nail Bed Color : Naschitti Edema Assessment : No Capillary Refill : Less than 2 seconds Heart Sounds : S1S2 GANDHI FELICaron Powell RN 03/12/2017 19:41 CDT Radial Pulse, Left : 2+ Normal Radial Pulse, Right : 2+ Normal Posttibial Pulse, Left : 2+ Normal Posttibial Pulse, Right : 2+ Normal Dorsalis Pedis Pulse, Left : 2+ Normal Dorsalis Pedis Pulse, Right : 2+ Normal GANDHI FELICaron Powell RN 03/12/2017 19:41 CDT Cardiac Rhythm Techs Monitoring Lead : III, V1/MCL1 Atrial Rhythm : Regular Ventricular Rhythm : Regular IN Consistency : Consistent ST Segment : Isoelectric Ectopy Frequency : None Cardiac Rhythm : Sinus rhythm SANDEE FELICaron Powell RN 03/12/2017 19:41 CDT Respiratory Respiratory Patient Stated Symptoms : None Respirations : Unlabored Distress : None Respiratory Pattern : Regular All Lobes Breath Sounds : Clear Cough and Deep Breathe : Done Cough : None Sputum Amount : None Suction : None Airway : Patent GANDHI FELICaron Powell RN 03/12/2017 19:41 CDT Incentive Spirometry Breath Hold : No Pt Participation in Treatment - IS : Uncooperative GANDHI, FELICaron Powell RN 03/12/2017 19:41 CDT GI/ Nausea Symptoms : No Passing Flatus : No Abdomen Palpation : Non-Tender Bowel Sounds All Quadrants : Present Abdomen Description : Flat, Symmetric GANDHI FELICaron Powell RN 03/12/2017 19:41 CDT Integumentary Integumentary Patient Stated Symptoms : None Skin Turgor : Elastic Skin Integrity : Intact Mucous Membrane Color : Naschitti Mucous Membrane Description : Moist Skin Color : Normal for ethnicity Skin Description : Dry Skin Temperature : Warm GANDHIFELI POSADA RN 03/12/2017 19:41 CDT Incision/Wound Incision/Wound Care Grid Activity : Assessed Dressing Type : Laceration Location : Hand Laterality : Right Drainage : None Wound Dressing : Other: dionicio wrap Neurovascular Status : Pulses distal to injury palpable, Skin distal to injury warm and pink GANDHIFELI POSADA RN 03/12/2017 19:41 CDT Peripheral IV Peripheral IV Assess/Intervention Grid Peripheral IV #1 IV Activity : Assessment Date of Insertion : 03/12/2017 CDT IV Site : Antecubital Laterality : Left Site Condition : No complications Drainage Description : None Infiltration Score : 0 Phlebitis Score : 0 Dressing/ Activity : Dry, Intact, Transparent, Reinforced Flow/ Patency : No complications GANDHIFELI POSADA RN 03/12/2017 19:41 CDT Neurologic Swallowing Difficulty/Aspiration Risk : None Extremity Movement : Unequal FELI GANDHI RN 03/12/2017 19:41 CDT Pupil, Left Pupil, Right Description : Regular Regular FELI GANDHI RN 03/12/2017 19:41 CDT FELI GANDHI RN 03/12/2017 19:41 CDT Characteristics of Speech : Appropriate for age FELI GANDHI RN 03/12/2017 19:41 CDT Neurological Strengths Grid Right Upper Extremity Strength : Weak Sensation : Numbness FELI GANDHI RN 03/12/2017 19:41 CDT Lower Extremity Nail Bed Color Feet Grid Left Foot : Naschitti Right Foot : Naschitti FELI GANDHI RN 03/12/2017 19:41 CDT Capillary Refill Feet Grid Left Foot : < 2 seconds Right Foot : < 2 seconds FELI GANDHI RN 03/12/2017 19:41 CDT NV Lower Extremity Color Grid Left : Naschitti Right : Naschitti FELI GANDHI RN 03/12/2017 19:41 CDT NV Lower Extremity Temperature Grid Left : Warm Right : Warm FELI GANDHI RN 03/12/2017 19:41 CDT Lower Extremity Peripheral Pulses Grid Posttibial Pulse, Left : 2+ Normal Posttibial Pulse, Right : 2+ Normal Dorsalis Pedis Pulse, Left : 2+ Normal Dorsalis Pedis Pulse, Right : 2+ Normal FELI GANDHI 03/12/2017 19:41 CDT Lower Extremity Sensation NV Grid Medial/Lateral Surfaces Sole of Left Foot : Intact Medial/Lateral Surfaces Sole of Right Foot : Intact Web Space Between Great and Second Toe Left Foot : Intact Web Space Between Great and Second Toe Right Foot : Intact FELI GANDHI 03/12/2017 19:41 CDT Lower Extremity Strength NV Grid Plantar Flexion Left Foot : Normal 5 Plantar Flexion Right Foot : Normal 5 Dorsiflex Foot/Extend Toes Left : Normal 5 Dorsiflex Foot/Extend Toes Right : Normal 5 FELI GANDHI 03/12/2017 19:41 CDT Upper Extremity Nail Bed Color Hands Grid Left Hand : Naschitti Right Hand : Naschitti FELI GANDHI 03/12/2017 19:41 CDT Capillary Refill Hand Grid Left Hand : < 2 seconds Right Hand : < 2 seconds FELI GANDHI 03/12/2017 19:41 CDT Upper Extremity Color Grid Left : Naschitti Right : Naschitti FELI GANDHI 03/12/2017 19:41 CDT Upper Extremity Temperature Grid Left : Warm Right : Warm FELI GANDHI 03/12/2017 19:41 CDT NV Upper Extremity Pulses Grid Radial Pulse, Left : 2+ Normal Radial Pulse, Right : 2+ Normal FELI GANDHI 03/12/2017 19:41 CDT NV Upper Extremity Sensation Grid Dorsal Web Space Thumb/Index Finger Right : Numbness Distal Fat Pad/Small Finger Right : Numbness Distal Fat Pad/Index Finger Right : Numbness FELI GANDHI 03/12/2017 19:41 CDT NV Upper Extremity Strength Grid Wrist/Thumb Extension Right : Poor 2 Abduction Fingers Right : Poor 2 Thumb/Small Finger Touch, Wrist Flex Right : Poor 2 FELI GANDHI 03/12/2017 19:41 CDT Effected Upper Extremity Pain : Unrelieved by appropriate narcotics FELI GANDHI 03/12/2017 19:41 CDT Activity Patient Position : High Perez's Activity Status ADL : Up with assistance Activity Assistance : Maximal 2-3 person assistance Assistive Device : Gait belt FELI GANDHI 03/12/2017 19:41 CDT PARSAP Activity Status : Moves 4 extremities voluntarily or on command Dressing : Dry and clean Respiratory Component : Able to deep breathe and cough freely Pain : Severe pain requires parenteral medication Circulation Component : BP 20% of preanesthetic level Ambulation : Able to stand up and walk straight Consciousness : Fully awake Fasting and Feeding : Able to drink fluids Oxygen Saturation - Sedation : Can maintain > 92% on room air Urine Output, PARSAP : Not assessed PARSAP Score : 18 FELI GANDHI RN - 03/12/2017 19:41 CDT Zepeda Zepeda Agitation Sedation Scale (RASS) : Agitated RASS Score : 2 FELI GANDHI RN - 03/12/2017 19:41 CDT [place] Sensory Perception Orlando : No impairment Moisture Orlando : Rarely moist Activity Orlando : Walks occasionally Mobility Orlando : No limitations Nutrition Orlando : Adequate Friction and Shear Orlando : No apparent problem Orlando Score : 21 FELI GANDHI RN - 03/12/2017 19:41 CDT Falls Assessment Fall Injury Risk History of Falls : No Patient at Risk for Falls : No Fall Injury Risk Factors : None of the below Risk Factors Patient has increased Fall Injury Risk : No FELI GANDHI RN - 03/12/2017 19:41 CDT Hendrich II Fall Risk Confusion/Disorientation Hendrich : No Depression Fall Risk Hendrich : No Altered Elimination Fall Risk Hendrich : No Dizziness/Vertigo Fall Risk Hendrich : No Gender, Male Fall Risk Hendrich : Yes Prescribed Antiepileptics Hendrich : No Prescribed Benzodiazepines Hendrich : No Rising From Chair Fall Risk Hendrich : Pushes up, successful in one attempt Fall Risk Score Hendrich II : 2 FELI GANDHI RN - 03/12/2017 19:41 CDT Safe Patient Handling Safe Pt Handling Independent : No Safe Pt Handling Supervision/Minimal Assistance : Yes - Unmotorized Equipment Safe Pt Handling Equipment Rec : Unmotorized Equipment Repositioning Device Recommended : No FELI GANDHI RN - 03/12/2017 19:41 CDT Education General Patient Education [employer] Topics : Medication dosage, route, scheduling, Medication precautions, side effects, food/drug interaction, Pain Management, Postoperative instructions, Safety, fall, Treatments/Procedures/Tests, Turn/Cough/Deep breathing Individuals Taught : Patient Barriers to Learning : Acuity of Illness Teaching Method : Explanation Teaching Evaluation : Needs further teaching, Needs reinforcement FELI GANDHI RN - 03/12/2017 19:41 CDT Source: [employer] Document Id: [id number] CDT!227 Mismagan - Aurelia Tran R.N. - 03/12/2017 6:19 PM CDT Communication Note Communication Note Entered On: 03/12/2017 18:20 CDT Performed On: 03/12/2017 18:19 CDT by AURELIA TRAN RN Communication Subject of Note : Family/patient concern or action Assessment Communication Note : Patient went to surgery at 1817. AURELIA TRAN RN - 03/12/2017 18:19 CDT Source: [employer] Document Id: [id number] CDT!4 Miscellaneous - Aurelia Tran R.N. - 03/12/2017 5:32 PM CDT Adult Admission Assessment Adult Admission Assessment Entered On: 03/12/2017 17:36 CDT Performed On: 03/12/2017 17:32 CDT by AURELIA TRAN RN Respiratory Respiratory Patient Stated Symptoms : None Respirations : Unlabored All Lobes Breath Sounds : Clear Cough : None Suction : None Airway : Patent AURELIA TRAN RN - 03/12/2017 17:32 CDT Cardiovascular CV Patient Stated Symptoms : None Heart Rhythm : Regular Antiembolism Device Yes/No : No Nail Bed Color : Naschitti AURELIA TRAN RN - 03/12/2017 17:32 CDT Dorsalis Pedis Pulse, Left : 2+ Normal Dorsalis Pedis Pulse, Right : 2+ Normal AURELIA TRAN RN - 03/12/2017 17:32 CDT Neurological Neuro Patient Stated Symptoms : None Orientation : Oriented x 3 Level of Consciousness : Alert Gait : Steady Swallowing Difficulty/Aspiration Risk : None Last Well Time Known : Not applicable AURELIA TRAN RN - 03/12/2017 17:32 CDT [place] Coma Eye Opening Response Arabella : Spontaneously Best Verbal Response Arabella : Oriented Best Motor Response [place] : Obeys simple commands Arabella Coma Score : 15 AURELIA TRAN - 03/12/2017 17:32 CDT Psycho/Emotional Affect/Behavior : Calm Feels Rested : Yes Pain Symptoms : No AURELIA TRAN - 03/12/2017 17:32 CDT Coping Grid Identifies effective strategies : Yes Uses effective strategies : Yes Reports increase in psychological comfort : Yes Indicates sense of control : Yes Stressors perceived within control : Yes Stable mood with appropriate affect : Yes Behaviors indicate use of coping mechanism : Yes Family supportive and involved in care : Yes Values/Beliefs incorporated appropriately : Yes AURELIA TRAN - 03/12/2017 17:32 CDT Safety Grid Vision, Hearing, Mobility Adequate to Meet Safety Needs : Yes AURELIA TRAN - 03/12/2017 17:32 CDT Gastrointestinal GI Patient Stated Symptoms : None Bowel Movement Last Date : 03/11/2017 CDT Bowel Sounds All Quadrants : Present AURELIA TRAN - 03/12/2017 17:32 CDT Genitourinary Patient Stated Symptoms : None AURELIA TRAN - 03/12/2017 17:32 CDT Integumentary Integumentary Patient Stated Symptoms : None Skin Turgor : Elastic Skin Integrity : Not intact Mucous Membrane Color : Naschitti Mucous Membrane Description : Moist Skin Color : Normal for ethnicity Skin Description : Normal Skin Temperature : Warm AURELIA TRAN - 03/12/2017 17:32 CDT Incision/Wound Incision/Wound Care Grid Activity : Assessed Dressing, Dressing intact Type : Laceration Location : Hand Laterality : Right Color : Red Drainage : Bloody Drainage Amount : Moderate Wound Dressing : Gauze bandage Neurovascular Status : Neurovascular intact distal to injury, Pulses distal to injury palpable, Skindistal to injury warm and pink AURELIA TRAN - 03/12/2017 17:32 CDT [place] Sensory Perception Orlando : No impairment Moisture Orlando : Rarely moist Activity Orlando : Walks frequently Mobility Orlando : No limitations Nutrition Orlando : Excellent Friction and Shear Orlando : No apparent problem Orlando Score : 23 AURELIA TRAN - 03/12/2017 17:32 CDT Falls Assessment Fall Injury Risk History of Falls : No Patient at Risk for Falls : No AURELIA TRAN RN - 03/12/2017 17:32 CDT Hendrich II Fall Risk Confusion/Disorientation Hendrich : No Depression Fall Risk Hendrich : No Altered Elimination Fall Risk Hendrich : No Dizziness/Vertigo Fall Risk Hendrich : No Gender, Male Fall Risk Hendrich : Yes Prescribed Antiepileptics Hendrich : No Prescribed Benzodiazepines Hendrich : No Rising From Chair Fall Risk Hendrich : Able to rise in a single movement, no loss of balance with steps Fall Risk Score Hendrich II : 1 AURELIA TRAN RN - 03/12/2017 17:32 CDT Safe Patient Handling Safe Pt Handling Independent : Yes - No equipment needed Safe Pt Handling Equipment Rec : No Equipment Needed AURELIA TRAN RN - 03/12/2017 17:32 CDT Education General Patient Education [employer] Topics : Importance of follow-up visits, Plan of care, Safety, fall Individuals Taught : Patient Barriers to Learning : None evident Teaching Method : Explanation Teaching Evaluation : Verbalizes understanding AURELIA TRAN RN - 03/12/2017 17:32 CDT [facility] Document Id: [id number] CDT!103 Miscellaneous - Aurelia Tran RJacielN. - 03/12/2017 5:28 PM CDT Adult Admission History Document Has Been Updated Adult Admission History Entered On: 03/12/2017 17:31 CDT Performed On: 03/12/2017 17:28 CDT by AURELIA TRAN RN General Info Preferred Name : [place] Admitted From : Non-Health Care Facility Point of Origin Mode of Arrival : Other: walking Present in Room During Exam/Procedure : Mother, Significant other Chief Complaint : laceration on right hand Preferred Communication Mode : Verbal Information Given By : Mother, Significant other Languages : Swiss Have you received chemotherapy in last 48 hours? : No Is Patient Female and 13-50 no hysterectomy : No AURELIA TRAN RN - 03/12/2017 17:28 CDT Allergy (As Of: 03/12/2017 17:31:10 CDT) Allergies (Active) azithromycin Reactions: Hives ; Comments: Comment 1: AZITHROMYCIN DIHYDRATE ; Created By: LOLIS VICTOR [facility]; Reaction Status: Active ; Category: Drug ; Substance: azithromycin ; Type: Allergy ; Severity: Moderate ; Updated By: LOLIS VICTOR [facility]; Source: Paper Chart/Abstracting ; Reviewed Date: 03/12/2017 17:29 CDT doxycycline Reactions: Nausea & vomiting ; Comments: Comment 1: DOXYCYCLINE ; Created By: LOLIS VICTOR RP; Reaction Status: Active ; Category: Drug ; Substance: doxycycline ; Type: Intolerance ; Severity: Moderate ; Updated By: LOLIS VICTOR [facility]; Source: Paper Chart/Abstracting ; Reviewed Date: 03/12/2017 17:29 CDT Nutrition Have you recently lost weight without trying? : No Decreased Appetite Nutrition : No Tube Feedings or Parenteral Nutrition : No MST Score : 0 Home Diet : Regular Appetite : Excellent Eating Difficulties : None AURELIA TRAN RN - 03/12/2017 17:28 CDT Home Environment Current Daily Living Assistance : None Living Situation : Home independently Home Equipment : None Sensory Deficits : None AURELIA TRAN RN - 03/12/2017 17:28 CDT Dependent Habits Alcohol Use : No AURELIA TRAN RN - 03/12/2017 17:28 CDT Recreational Drug Use Grid Drug Use : None AURELIA TRAN RN - 03/12/2017 17:28 CDT Psychosocial Adult Domestic Abuse Concerns : None Concerns About Family Members at Home : No Emotional Support Available : No Caregiver Post Hospital Care : Yes Behavioral Health Screen/Safety Assmt : No Mosque Preference : Unknown AURELIA TRAN RN - 03/12/2017 17:28 CDT Advance Directive Advanced Directives : No Advance Directive Additional Information : No AURELIA TRAN RN - 03/12/2017 17:28 CDT Educ Needs Patient/Family Education Needs : Plan of care, Safety, fall AURELIA TRAN RN - 03/12/2017 17:28 CDT Learning Style Preference Adult Grid Patient : Verbal explanation Family : Verbal explanation AURELIA TRAN RN - 03/12/2017 17:28 CDT DC Needs Anticipated Discharge Date : 03/12/2017 CDT Discharge To, Anticipated : Home independently Home Treatments, Anticipated : None Professional Skilled Services, Anticipated : None Special Serv & Comm Res, Anticipated : None Needs Assistance with Transportation : No Needs Assistance at Home Upon Discharge : No AURELIA TRAN RN - 03/12/2017 17:28 CDT Source: [facility] [employer] Document Id: [id number] CDT!53 Miscellaneous - Aurelia Tran R.N. - 03/12/2017 5:25 PM CDT Height/Length Height/Length Entered On: 03/12/2017 17:25 CDT Performed On: 03/12/2017 17:25 CDT by AURELIA TRAN RN Height/Length Height : 175.26 cm AURELIA TRAN RN - 03/12/2017 17:25 CDT Source: [facility] [employer] Document Id: [id number] CDT!3 documented in this encounter Plan of Treatment Not on filedocumented as of this encounter Procedures Procedure Name Priority Date/Time Associated Diagnosis Comme nts BACTERIAL CULTURE, Routine 03/12/2017 6:48 PM Res ults for this AEROBIC CDT procedure are i n the results section. documented in this encounter Results Bacterial Culture, Aerobic (03/12/2017 6:48 PM CDT) P athologist Signature HXCulture POWERCHART Exudate HX GS Pending POWERCHART Comment: Pending HX GS FEW WBC'S SEEN POWERCHART HX GS NO ORGANISMS SEEN POWERCHART Comment: FEW ??WBC'S SEEN NO ORGANISMS SEEN HX GS FEW WBC'S SEEN POWERCHART HX GS NO ORGANISMS SEEN POWERCHART Comment: FEW ??WBC'S SEEN NO ORGANISMS SEEN HX GS FEW WBC'S SEEN POWERCHART HX GS NO ORGANISMS SEEN POWERCHART Comment: FEW ??WBC'S SEEN NO ORGANISMS SEEN HX GS FEW WBC'S SEEN POWERCHART HX GS NO ORGANISMS SEEN POWERCHART Comment: FEW ??WBC'S SEEN NO ORGANISMS SEEN HX GS FEW WBC'S SEEN POWERCHART HX GS NO ORGANISMS SEEN POWERCHART Comment: FEW ??WBC'S SEEN NO ORGANISMS SEEN HXFinal HAND RIGHT WND POWERCHART HXFinal NO GROWTH 3 DAYS POWERCHART HXFinal FINAL 03/15/2017-[facility] [address] [place] [address] [place] [address] Comment: HAND RIGHT ??WND NO GROWTH 3 DAYS FINAL 03/15/2017-[facility] HXFinal HAND RIGHT WOUND POWERCHART HXFinal NO GROWTH 3 DAYS POWERCHART HXFinal FINAL 03/15/2017-[facility] [address] [facility] [id number] Comment: HAND RIGHT WOUND NO GROWTH 3 DAYS FINAL 03/15/2017-[facility] Specimen (Source) Anatomical Collection Method Collection Time Re ceived Time Location / / Volume Laterality Wound 03/12/2017 6:48 PM CDT Annette Arevalo M.D. LAB MICROBIOLOGY - GENERAL O RDERABLES Performing Organization Address City/State/ZIP Code Phon e Number POWERCHART documented in this encounter Visit Diagnoses Not on filedocumented in this encounter
--- OUTSIDE RECORDS SUMMARY | 2022-09-25 11:02 | XMS_ITS | Encounter Summary ---
:1990 Author Organization [facility] Address [address] [place] [address] Care Team Providers Name Role Phone Julian Santana M.D. Primary Care Provider Reason for Visit Reason Comments Urinary Tract Infection pain with urination/abdomina l pain x 5 days Appointment Request (Routine) - Closed Specialty Diagnoses / Procedures Referred By Contact Refer red To Contact Family Medicine Referral ID Status Reason Start Date Expiration Date Visits Requ ested Visits Authorized [id number] Closed 04/01/2018 09/28/2018 1 Encounter Details Date Type Department Care Team Description 04/01/2018 Office Visit Department of Jeane Membreno Infection Chlamydia Internal Medicine in M, JOSE DAVID, C.N.P., (Pr imary Dx) [place], [place] D.N.P. [address] [facility] [address] [place] [phone] (Wo rk) Social History Tobacco Use Types Packs/Day Years Used Date Smoking Tobacco: Every Day Cigarettes 1 Smokeless Tobacco: Never Alcohol Habits Answer Date Recorded How often [...] Sign Reading Time Taken Comments Blood Pressure 100/60 04/01/2018 2:01 PM CDT Pulse 84 04/01/2018 2:01 PM CDT Temperature 37 ??C (98.6 ??F) 04/01/2018 2:01 PM CDT Respiratory Rate - - Oxygen Saturation - - Inhaled Oxygen Concentration - - Weight 84 kg (185 lb 3 oz) 04/01/2018 2:01 PM CDT Height 177 cm (5' 9.69) 04/01/2018 2:01 PM CDT Body Mass Index 26.81 04/01/2018 2:01 PM CDT documented in this encounter Progress Notes Jeane Membreno APRN, C.N.P., D.N.P. - 04/01/2018 2:00 PM CDT PATIENT: John Gavin Date of : 1990 SUBJECTIVE CHIEF COMPLAINT / REASON FOR VISIT Chief Complaint Patient presents with ??? Urinary Tract Infection pain with urination/abdominal pain x 5 days HISTORY OF PRESENT ILLNESS John Gavin is a 27 y.o. male who is here for painful urination. His primary medical care providers include Julian Santana M.D.. Royal comes to the clinic today with a 5 days history of painful urination and lower abdominal pain.He is concerned he might have a sexually transmitted infection. He admits to having multiple partners. He is unsure if they are suffering from symptoms. However, his ex-girlfriend is being seen in clinic for same issue today. He denies blood in his stools or in urine. He also denies fever chills. REVIEW OF SYSTEMS Genitourinary: Positive for difficulty urinating and pain with urination. All other systems reviewed and are negative. OBJECTIVE Medications: No current outpatient prescriptions on file. No current facility-administered medications for this visit. ALLERGIES: Allergies Allergen Reactions ??? Azithromycin Hives, Rash and Other (see comments) VITAL SIGNS: BP 100/60 (BP Location: Left arm) Pulse 84 Temp 37 ??C Ht 177 cm Wt 84 kg BMI 26.81 kg/m?? PROBLEM LIST: Patient Active Problem List Diagnosis ??? Bipolar I Disorder (HCC) ??? Attention Deficit With Hyperactivity Disorder ??? Tic Disorder ??? Abuse Tobacco Smoking ??? Dependence Polysubstance (HCC) PHYSICAL EXAM Constitutional: He is oriented to person, place, and time. He appears well- developed and well-nourished. HENT: Head: Normocephalic and atraumatic. Right Ear: External ear normal. Left Ear: External ear normal. Nose: Nose normal. Mouth/Throat: Oropharynx is clear and moist. Eyes: Conjunctivae are normal. Pupils are equal, round, and reactive to light. Neck: Normal range of motion. Neck supple. No JVD present. No thyromegaly present. Cardiovascular: Normal rate, regular rhythm and normal heart sounds. Pulmonary/Chest: Effort normal and breath sounds normal. Abdominal: Soft. Bowel sounds are normal. There is tenderness. Genitourinary: Rectum normal and genitalia normal. Musculoskeletal: Normal range of motion. Lymphadenopathy: He has no cervical adenopathy. Neurological: He is alert and oriented to person, place, and time. Skin: Skin is warm and dry. Capillary refill takes more than 3 seconds. Psychiatric: He has a normal mood and affect. His behavior is normal. Judgment and thought content normal. LABS: Results for JOHN GAVIN ( ) as of 04/26/2018 09:48 Ref. Range 04/01/2018 13:56 Chlamydia trachomatis amplified RNA Latest Ref Range: Negative Positive (A) Neisseria gonorrhoeae amplified RNA Latest Ref Range: Negative Negative Glucose Latest Ref Range: Negative mg/dL Negative Protein Latest Units: mg/dL Trace Source Unknown Midstream Clarity Latest Ref Range: Clear Slightly Cloudy (A) Color Unknown Yellow Nitrite Latest Ref Range: Negative Negative Leukocyte Esterase Latest Ref Range: Negative Negative pH Latest Ref Range: 5.0 - 8.0 7.5 Specific [place], U Latest Ref Range: 1.001 - 1.035 1.018 Ketone Latest Ref Range: Negative mg/dL Negative Bilirubin Latest Ref Range: Negative Negative Blood Latest Ref Range: Negative Negative Urobilinogen Latest Ref Range: 0.2 - 1.0 0.2 White Blood Cells Latest Units: /hpf Occ-3 Urine RBC Latest Ref Range: 0 - 2 /hpf Occ-2 Mucus Latest Units: /hpf Present ASSESSMENT / PLAN #1 Infection Chlamydia Treated with Levaquin x7 days. Discussed he should abstain from sexual contact until medication is completed. Also discussed he should return for recheck in 3 months. He admits to having many sexual partners over the last few weeks and he will discuss this infection with them. Jeane Membreno APRN, C.N.P., D.N.P. 04/26/2018 9:49 AM documented in this encounter Plan of Treatment Not on filedocumented as of this encounter Procedures Procedure Name Priority Date/Time Associated Comments Diagnosis IRIS MICROSCOPIC, U Routine 04/01/2018 1:56 PM Re sults for this CDT procedure are i n the results section. URINALYSIS WITH Routine 04/01/2018 1:56 PM Infection Chlamydia Results for this MICROSCOPIC IF CDT procedure are in INDICATED, U the results section. CHLAMYDIA/GONORRHOEAE Routine 04/01/2018 1:56 PM Infection Chl amydia Results for this AMPLIFIED RNA CDT procedure are in the results section. documented in this encounter Results Iris Microscopic, U (04/01/2018 1:56 PM CDT) athologist Signature White Blood Occ-3 /hpf 04/01/2018 [facility] Cells 2:17 PM CDT [facility] Comment: ----REFERENCE VALUE---- Males: 0-3 Females: 0-10 Unknown: 0-10 Red Blood Cells Occ-2 0 - 2 /hpf 04/01/2018 2:17 PM CDT [facility] Mucus Present /hpf 04/01/2018 2:17 PM CDT [facility] Specimen Anatomical Collection Method Collection Time Receive d Time (Source) Location / / Volume Laterality Urine 04/01/2018 1:56 PM 8 1:56 CDT PM CDT Jeane Membreno APRN, C.N.P., D.N.P. LAB URINE MAGDALENOE AMADEO Performing Organization Address City/State/ZIP Code Phon e Number [facility] [address] [place] [address] [facility] (ABNORMAL) Chlamydia / gonorrhoeae Amplified RNA (04/01/2018 1:56 PM CDT) [facility] gist Method Time Signature Source URINE, FIRST 04/04/2018 [facility] VOID 11:27 AM CDT [facility] Chlamydia Positive (A) Negative 04/04/2018 [facility] trachomatis 11:27 AM [facility] Comment: ----ADDITIONAL INFORMATION---- This report is intended for use in clini shonda monitoring and management of patients. It is not in tended for use in medical-legal applications. Source URINE, FIRST VOID 04/04/2018 11:[address] [facility] Neisseria Negative Negative 04/04/2018 11:27 AM [facility] C gonorrhoeae [facility] amplified RNA [facility] Comment: ----ADDITIONAL INFORMATION---- This report is intended for use in clini shonda monitoring and management of patients. It is not in tended for use in medical-legal applications. Semi-Urgent This is a semi-urgent result (KEN) [facility] Specimen Anatomical Collection Method Collection Time Receive d Time (Source) Location / / Volume Laterality Varies (Urine, 04/01/2018 1:56 PM 018 9:52 First Voided) CDT PM CDT Jeane Membreno APRN, C.N.P., D.N.P. LAB MICROBIOLO GY - GENERAL ORDERABLES Performing Organization Address City/State/ZIP Code Phon e Number [facility] [address] [facility] [address] [facility] (ABNORMAL) Urinalysis with Microscopic if Indicated (04/01/2018 1:56 PM CDT) Analysis Performed At Patho logist Time Signature Source Midstream 04/01/2018 [facility] 2:17 PM T [facility] Clarity Slightly Clear 04/01/2018 [facility] Cloudy (A) 2:17 PM T [facility] Color Yellow 04/01/2018 [facility] 2:17 PM CDT [facility] Comment: ----REFERENCE VALUE---- Colorless Yellow [place] Blood Negative Negative 04/01/2018 2:17 PM CDT [facility] Nitrite, U Negative Negative 04/01/2018 2:17 PM CDT [facility] Leukocyte Esterase Negative Negative 04/01/2018 2:17 PM CD T [facility] Protein, U Trace mg/dL 04/01/2018 2:17 PM CDT [facility] Comment: ----REFERENCE VALUE---- Negative Trace Glucose Negative Negative mg/dL 04/01/2018 2:17 PM CDT [facility] Ketone Negative Negative mg/dL 04/01/2018 2:17 PM CDT [facility] Bilirubin Negative Negative 04/01/2018 2:17 PM CDT ON[facility] pH 7.5 5.0 - 8.0 04/01/2018 2:17 PM CDT [facility] Specific [place] 1.018 1.001 - 1.035 04/01/2018 2:17 PM CDT [facility] Urobilinogen 0.2 0.2 - 1.0 04/01/2018 2:17 PM CDT [facility] Specimen Anatomical Collection Method Collection Time Receive d Time (Source) Location / / Volume Laterality Urine (Urine, 04/01/2018 1:56 PM 04/01/20 18 1:56 Clean Catch) CDT PM CDT Jeane Membreno APRN, C.N.P., D.N.P. LAB URINE CELIA CHILDS [facility] Organization Address City/State/ZIP Code Phon e Number [facility] [address] [place] [address] [facility] documented in this encounter Visit Diagnoses Diagnosis Infection Chlamydia - Primary documented in this encounter Care Teams Stove Mechanic Relationship Specialty Start Date End Date Julian Santana M.D. PCP - General 05/13/17 [address] [place] [phone] documented as of this encounter
--- OUTSIDE RECORDS SUMMARY | 2022-09-25 11:02 | XMS_ITS | Encounter Summary ---
:1990 Author Organization [facility] Address [address] [place] [address] Care Team Providers Name Role Phone Julian Santana M.D. Primary Care Provider Encounter Details Date Type Department Care Team Description 10/28/2018 Clinical Communication Department of Kirsty Akers, Medicine, [facility], [address] [address] [place], [place] [phone] (Work) [phone] Social History Tobacco Use Types Packs/Day Years [...] Miscellaneous Notes Telephone Encounter - Carolyn Biswas LJacielPJacielN. - 11/01/2018 9:34 AM TOUR PRODUCTION SUPERVISOR FYI PRODUCTION SUPERVISOR Telephone Encounter - Amy Schmidt - 10/28/2018 1:27 PM CST Images from the original note were not included. Nurse Review: Communication Provider: Julian Santana M.D. PRODUCTION SUPERVISOR documented in this encounter Plan of Treatment Not on filedocumented as of this encounter Visit Diagnoses Not on filedocumented in this encounter Care Teams Filler Sifter Helper Relationship Specialty Start Date End Date Julian Santana M.D. PCP - General 05/13/[address] [place] [phone] documented as of this encounter
--- OUTSIDE RECORDS SUMMARY | 2022-09-25 11:02 | XMS_ITS | Encounter Summary ---
:1990 Author Organization [facility] Address [address] [place] [address] Care Team Providers Name Role Phone Unavailable Primary Care Provider Unavailable Encounter Details Date Type Department Care Team Description 03/12/2017 Hospital Encounter HX [facility] ED Grover Atkins M.D. [address] [place], [place] [phone] (Wo rk) Social History Tobacco [...] Sign Reading Time Taken Comments Blood Pressure 101/61 03/12/2017 1:00 PM CDT Pulse 123 03/12/2017 11:00 AM CDT Temperature - - Respiratory Rate 16 03/12/2017 10:22 AM CDT Oxygen Saturation - - Inhaled Oxygen Concentration - - Weight 75 kg (165 lb 5.5 oz) 03/12/2017 10:22 AM CDT Height 175.3 cm (5' 9) 03/12/2017 10:22 AM CDT Body Mass Index 24.42 03/12/2017 10:22 AM CDT documented in this encounter Discharge Summaries Елена Osei R.N. - 03/12/2017 2:31 PM CDT ED Discharge Instructions [facility] [address] [place] [address] Name: JOHN GAVIN Date of : 1990 12:00 AM Visit Date: 03/12/2017 10:08 AM [facility] Number: [id number] Address: [address] [place] [id number] Primary Care Provider: REGGIE RIVAS MD IMPORTANT: [facility] in [place] would like to thank you for allowing us to assist you with your healthcare needs. The following includes patient education materials and information regarding your injury/illness. Diagnosis: Laceration Hand W Foreign Body (FB) Subsequent L Follow-Up Instructions: Your Upcoming Appointments: Date Time Location Provider No Appointments found Patient Education Materials: Consider Using Patient Online Services Patient Online [...] if you dont have one. Go to [email or web address] and click on Create Your Account. Then, follow the directions to complete the online form. Youll be asked for your [facility] number which you can find at the top of this document. ED Tests and Procedures: Order Status FL Fluoroscopy less than 1 hour Completed XR Hand Right 3 or more views Completed XR Wrist Right 3 or more views Completed XR Elbow Right 3 or more views Canceled XR Elbow Right 2 views Completed Discharge Prescriptions & Home Medications: Medication/Strength Dose Route Frequency Indications/Special Instructions/Comments/Notes ibuprofen (Advil Liquigel 200 mg oral capsule) See Instructions prn, per mom Comment: Attention: If you have any medications [...] arrange a ride home with a responsible green party. ASHLEY Mederos ALEXANDER LEELAVERE , or responsible green party have received this information and my questions have been answered. I have discussed any challenges I see with this plan with the nurse or physician. Patient Signature or Responsible Green Party/Relationship Date Time Provider Signature Date Time IMPORTANT: [...] arrange a ride home with a responsible green party. ASHLEY Mederos ALEXANDER LEELAVERE or responsible green party have received this information and my questions have been answered. I have discussed any challenges I see with this plan with the nurse or physician. Patient Signature or Responsible Green Party/Relationship Date Time Provider Signature Date Time Source: [facility] POWERCHART Document Id: [id number] Елена Osei R.N. - 03/12/2017 2:31 PM CDT ED Depart Summary [facility] Emergency Department Clinical Discharge Summary PERSON INFORMATION Name JOHN GAVIN Age 26 Years 1990 12:00 AM Sex Male Language Somali PCP REGGIE RIVAS MD Marital Status Single Visit Id Visit Reason Hand laceration; CUT ON HAND Specialty Enc Type Observation Med Service Emergency Medicine Referred by Track Group [facility] ED Discharge 03/12/2017 2:24 PM Tracking Id [id number] Checkout 03/12/2017 2:24 PM Checkin 03/12/2017 10:08 AM Acuity 4 -Less Urgent Dispo Type Left Against Medical Advice Arrival 03/12/2017 10:08 AM Reg Status Complete LOS 000 04:16 Address: [address] [place] [address] Comment: PROVIDER INFORMATION Provider Role Provider Contact Time ЕЛЕНА OSEI WOOL HANDLER Nurse 03/12/17 10:10 ЕЛЕНА OSEI WOOL HANDLER Nurse 03/12/17 10:10 MEL MYRICK ED Access Services Representative 03/12/17 10:12 MEL MYRICK ED Access Services Representative 03/12/17 10:12 GROVER ATKINS MD ED Provider 03/12/17 10:19 GROVER ATKINS MD ED Provider 03/12/17 10:19 DIAGNOSIS Laceration Hand W Foreign Body (FB) Subsequent L Comment: PATIENT EDUCATION INFORMATION Instructions: Follow up: Source: [facility] [employer] Document Id: [id number] documented in this encounter ED Notes Елена Osei R.N. - 03/12/2017 2:04 PM CDT ED Disposition Summary ED Disposition Summary Entered On: 03/12/2017 14:04 CDT Performed On: 03/12/2017 14:04 CDT by ЕЛЕНА OSEI RN ED Disposition Summary Nurse Receiving Report : Aurelia Date/Time Nurse Received Report : 03/12/2017 14:00 CDT Transporter : RN Printed Discharge Instructions Given to Patient : No Reason Discharge Instructions Not Given : admitted for later surgery Patient Status at Discharge from ED : Unchanged 30 Minutes Critical Care : No ЕЛЕНА OSEI RN - 03/12/2017 14:04 CDT Source: [employer] Document Id: [id number] CDT!9 Елена Osei R.N. - 03/12/2017 1:11 PM CDT ED Nurse Reassess ED Nurse Reassess Entered On: 03/12/2017 13:12 CDT Performed On: 03/12/2017 13:11 CDT by ЕЛЕНА OSEI RN Pain Assessment Pain Symptoms : No ЕЛЕНА OSEI RN - 03/12/2017 13:11 CDT [place] Coma Eye Opening Response [place] : Spontaneously Best Verbal Response [place] : Oriented Best Motor Response [place] : Obeys simple commands Arabella Coma Score : 15 ЕЛЕНА OSEI RN - 03/12/2017 13:11 CDT Incision/Wound Incision/Wound Care Grid Type : Laceration Location : Hand Laterality : Right Wound Dressing : 4x4's, Gauze bandage ЕЛЕНА OSEI RN - 03/12/2017 13:11 CDT Source: [employer] Document Id: [id number] CDT!15 Елена Osei R.N. - 03/12/2017 12:15 PM CDT ED Treatments and Procedures ED Treatments and Procedures Entered On: 03/12/2017 12:29 CDT Performed On: 03/12/2017 12:15 CDT by ЕЛЕНА OSEI RN Peripheral IV Peripheral IV Assess/Intervention Grid Peripheral IV #1 IV Activity : Start Number of Attempts : 1 Date of Insertion : 03/12/2017 CDT IV Site : Antecubital Laterality : Left Catheter Size : 18 Catheter Type : Protective Site Condition : No complications ЕЛЕНА OSEI RN - 03/12/2017 12:28 CDT Source: [employer] Document Id: [id number] CDT!12 Grover Atkins M.D. - 03/12/2017 10:25 AM CDT Hand laceration Patient: JOHN GAVIN Age: 26 years Sex: Male : 1990 Author: GROVER ATKINS MD Attachments: None Associated Diagnosis: Laceration Hand W Foreign Body (FB) Subsequent L Basic Information Time seen: Date & time 03/12/2017 10:25:00, Mel Mederos am scribing for and in the presenceofGrover MD.. History source: Patient, significant other. Arrival mode: Private vehicle. History limitation: None. Additional information: Chief Complaint from Nursing Triage Note : Chief Complaint Description 03/12/2017 10:22 CDT Chief Complaint Description pt fell landing on a glass. pt has a laceration on his right hand. pt states his fingers feel numb and has pain all the way to his elbow. . History of Present Illness The patient presents with right, hand laceration(s). The onset was just prior to arrival. The course/duration of symptoms is constant. Type of injury: fall. The location where the incident occurred wasat home. The character of symptoms is pain and bleeding. Patient is a 26 year old male with history of bipolar disorder, ADD, and nicotine dependence who presents to the ED for evaluation of a hand laceration, accompanied by his and daughter. Earlier today, patient fell down in his house. He used his right hand to retard the fall and collided against broken glass. Patient reports extreme pain in his right hand which radiates all the way to his elbow. There are broken glass fragments inside site of injury. Additional symptoms include dizziness, nausea, and headache. Patient is quite tearful from his pain. Review of Systems Constitutional symptoms: No fever or no chills. Skin symptoms: No rash. Eye symptoms: Vision unchanged. ENMT symptoms: No nasal congestion. Respiratory symptoms: No shortness of breath or no hemoptysis. Cardiovascular symptoms: No palpitations or no peripheral edema. Gastrointestinal symptoms: Nausea. Genitourinary symptoms: No dysuria. Musculoskeletal symptoms: No Muscle pain or no Joint pain. Neurologic symptoms: No headache or no dizziness. Endocrine symptoms: No polyuria, no polydipsia or no polyphagia. Additional review of systems information: All other systems reviewed and otherwise negative. Health Status Allergies: Allergic Reactions (Selected) Moderate Azithromycin- Hives. Nonallergic Reactions (Selected) Moderate Doxycycline- Nausea & vomiting.. Medications: (Selected) Documented Medications Documented Advil Liquigel 200 mg oral capsule: See Instructions, prn, per mom. Past Medical/ Family/ Social History Surgical history: Cystourethroscopy on 06/22/2003 at 12 Years. Tonsillectomy on 10/31/1997 at 7 Years. Comments: 10/07/2015 07:13 - DEVENDRA PINEDO Cystoscopy, ureteral meatotomy on 07/18/1997 at 6 Years. Adenoidectomy on 05/05/1996 at 5 Years. Comments: 10/07/2015 07:15 - DEVENDRA PINEDO Repair, Laceration (R) hand 5th finger on [...] Drug use: Denies. Problem list: All Problems Bipolar I Disorder, Most Recent Episode (Or Current) Unspecified / 296.7 / Confirmed Bipolar I disorder, most recent episode (or current) unspecified Tic Disorder, Unspecified / 307.20 / Confirmed Tic disorder, unspecified Attention Deficit Disorder of Childhood with Hyperactivity / 314.01 / Confirmed Attention deficit disorder with hyperactivity Constipation, Unspecified / 564.00 / Confirmed Unspecified constipation Unspecified Sleep Disturbance / 780.50 / Confirmed Sleep disturbance, unspecified Headache / 784.0 / Confirmed Headache Abuse Tobacco Smoking NOS / Z72.0 / Confirmed. Physical Examination General: Alert, moderate distress and anxious. Skin: puncture wound to palm of right hand. Not bleeding currently. . Neurological: Alert and oriented to person, place, time, and situation. Medical Decision Making OrdersLaunch Orders Pharmacy: HYDROcodone-acetaminophen 5mg-325mg oral tablet (Order Processing): 2 tab(s), PO, Once Zofran ODT (Order Processing): 4 mg, PO, Once Radiology: XR Elbow Right 3 or more views (Order Processing): 03/12/2017 10:30 CDT, fall, elbow pain, Stat, Patient Bed, Once, 03/12/2017 10:30 CDT, [facility] ED XR Wrist Right 3 or more views (Order Processing): 03/12/2017 10:30 CDT, fall, wrist pain, Stat, Patient Bed, Once, 03/12/2017 10:30 CDT, [facility] ED XR Hand Right 3 or more views (Order Processing): 03/12/2017 10:30 CDT, fall, puncture wound/lac on broken glass., Stat, Patient Bed, Once, 03/12/2017 10:30 CDT, [facility] ED, Launch Orders Pharmacy: Zofran (Order Processing): 4 mg, IV Push, Once Ativan (Order Processing): 1 mg, IV Push, Once Saline bolus (Order Processing): 1,000 mL, IVPB, Once. [facility] XR Elbow Right 2 views 03/12/17 11:26:18 14-Apr-2017 11:24:00 Exam: R Elbow 2 vw Indications: fall, elbow pain 12-Mar-2017 11:26 [facility] EXAM: Elbow 2 vw RIGHT IMPRESSION: No acute pathology demonstrated on this single projection. FINDINGS: A single lateral view of the right elbow only was obtained, the patient refusing further imaging. There are no fractures or dislocations. The surrounding soft tissues appear normal. Corey Mckee MD 12-Mar-2017 11:26 Signed By: DESTINEE MCKEE MD XR Hand Right 3 or more views 03/12/17 11:18:11 12-Mar-2017 11:10:00 Exam: R Hand PA Obl Splayed Lateral Indications: fall, puncture wound/lac on broken glass. 12-Mar-2017 11:18 [facility] EXAM: Hand PA Obl Splayed Lateral RIGHT IMPRESSION: Approximately 1.6 cm retained radiopaque foreign body, volar soft tissues adjacent to the mid third metacarpal. FINDINGS: 3 views of the right hand demonstrate emphysema within the volar soft tissues adjacent to the third metacarpal, consistent with a laceration, where a 1.6 cm linear radiopaque foreign body is also noted, likely retained glass. There are no associated fractures or dislocations. Corey Mckee MD 12-Mar-2017 11:18 Signed By: DESTINEE MCKEE MD XR Wrist Right 3 or more views 03/12/17 11:24:57 12-Mar-2017 11:16:00 Exam: R Wrist 5vw PA/Lat/Obl/Navicular Indications: fall, wrist pain 12-Mar-2017 11:24 [facility] EXAM: Wrist 5vw PA/Lat/Obl/Navicular RIGHT IMPRESSION: No additional pathology besides the previously described retained foreign body within the hand. FINDINGS: Multiple views of the right wrist are directly compared to views of the right hand performed at the same time. Portions of the distal forearm were included as this is the area where the patient claims his pain is. It should also be noted that the patient refused any additional imaging. There are no fractures or dislocations. Again noted is a 1.6 cm linear radiopaque foreign body adjacent to the volar aspect of the third metacarpal, previously described. Corey Mckee MD 12-Mar-2017 11:24 Signed By: DESTINEE MCKEE MD Procedure Laceration repair Notes: After patient returned from x-ray and the films were reviewed, there was no evidence of fracture but evidence of foreign body, 1.6 cm long FB thought to be glass. 2% lidocaine was instilled around the wound which was approximately 1 cm in length. Thereafter the wound was copiously irrigated with sterile water. Exploration was attempted and the foreign body could not be seen.. Impression and Plan Diagnosis Laceration Hand W Foreign Body (FB) Subsequent L (Discharge, Emergency medicine, Medical) Calls-Consults -Consult, I consulted with Dr. Arevalo, orthopedics, and he came to the ED to evaluate the patient. He attempted to find the foreign body with the help of C- arm fluoroscopy. Because of its locationt it was thought that the patient should be taken to the OR for removal of this foreign body. Since the patient in the eaten approximately 2 to 3 hours prior, we decided to postpone the procedure until this evening and therefore patient is being admitted for observation to the hospital floor. In the ED he received 4 mg morphine, 1 mg at of an and 4 mg Zofran IV.. Plan Disposition: Admit time 03/12/2017 13:00:00, Admit to Surgery, Patient care transitioned to: Time: 03/12/2017 13:00:00, Discussed with DR. Arevalo, Orhopedics. Plan to admit for surgery later today, but he needs to be NPO for 6 - 8 hours. . Electronically Signed By: GROVER ATKINS MD On: 03/18/2017 08:28 PM Modified by and Electronically Signed by: GROVER ATKINS MD On: 03/12/2017 10:34 AM Source: [facility] [employer] Document Id: [id number]} Елена Osei R.N. - 03/12/2017 10:22 AM CDT ED Primary Assessment Document Has Been Updated ED Primary Assessment Entered On: 03/12/2017 10:32 CDT Performed On: 03/12/2017 10:22 CDT by ЕЛЕНА OSEI RN Reason For Visit (As Of: 03/12/2017 10:32:38 CDT) Problems(Active) Abuse Tobacco Smoking NOS (ICD-10-CM :Z72.0 ) Name of Problem: Abuse Tobacco Smoking NOS ; Recorder:DEVENDRA PINEDO; Confirmation: Confirmed ; Classification: Medical ; Code: Z72.0 ; Contributor System: PowerChart ; Last Updated: 10/07/2015 7:19 [facility] ED[facility] ; Life Cycle Date: 10/07/2015 ; Life Cycle Status: Active ; Responsible Provider: DEVENDRA PINEDO; Vocabulary: ICD-10-CM Attention Deficit Disorder of Childhood with Hyperactivity (ICD-9-CM :314.01 ) Name of Problem: Attention Deficit Disorder of Childhood with Hyperactivity ; Onset Date: 06/08/2001 ; Confirmation: Confirmed ; Classification: Medical ; Code: 314.01 ; Contributor System: PowerChart ; Last Updated: 10/07/2015 7:12 [facility] EDGER ; Life Cycle Status: Active ; Vocabulary: ICD-9-CM ; Comments: - Attention deficit disorder with hyperactivity Bipolar I Disorder, Most Recent Episode (Or Current) Unspecified (ICD-9-CM :296.7 ) Name of Problem:Bipolar I Disorder, Most Recent Episode (Or Current) Unspecified ; Onset Date: 01/07/2006 ; Confirmation: Confirmed ; Classification: Medical ; Code: 296.7 ; Contributor System: PowerChart ; Last Updated: 10/07/2015 7:11 [facility] EDGER ; Life Cycle Status: Active ; Vocabulary: ICD-9-CM ; Comments: - Bipolar I disorder, most recent episode (or current) unspecified Constipation, Unspecified (ICD-9-CM :564.00 ) Name of Problem: Constipation, Unspecified ; Onset Date: 03/12/2004 ; Confirmation: Confirmed ; Classification: Medical ; Code: 564.00 ; Contributor System: PowerChart ; Last Updated: 10/07/2015 7:11 [facility] EDGER ; Life Cycle Status: Active ; Vocabulary: ICD-9-CM ; Comments: - Unspecified constipation Headache (ICD-9-CM :784.0 ) Name of Problem: Headache ; Onset Date: 06/08/2001 ; Confirmation: Confirmed ; Classification: Medical ; Code: 784.0 ; Contributor System: PWA ; Last Updated: 10/07/2015 7:11 [facility] EDGER ; Life Cycle Status: Active ; Vocabulary: ICD-9-CM ; Comments: - Headache Tic Disorder, Unspecified (ICD-9-CM :307.20 ) Name of Problem: Tic Disorder, Unspecified ; Onset Date: 07/20/2002 ; Confirmation: Confirmed ; Classification: Medical ; Code: 307.20 ; Contributor System: [employer] ; Last Updated: 10/07/2015 7:11 [facility] EDGER ; Life Cycle Status: Active ; Vocabulary: ICD-9-CM ; Comments: - Tic disorder, unspecified Unspecified Sleep Disturbance (ICD-9-CM :780.50 ) Name of Problem: Unspecified Sleep Disturbance ; Onset Date: 07/04/2003 ; Confirmation: Confirmed ; Classification: Medical ; Code: 780.50 ; Contributor System: PowerChart ; Last Updated: 10/07/2015 7:11 [facility] EDGER ; Life Cycle Status: Active ; Vocabulary: ICD-9-CM ; Comments: - Sleep disturbance, unspecified Diagnoses(Active) Hand laceration Date: 03/12/2017 ; Diagnosis Type: Reason For Visit ; Confirmation: Complaint of ; Clinical Dx: Hand laceration ; Classification: Medical ; Clinical Service: Emergency medicine ; Code: PNED ; Probability: 0 ; Diagnosis Code: [id number] Triage Chief Complaint Description : pt fell landing on a glass. pt has a laceration on his right hand. pt states his fingers feel numb and has pain all the way to his elbow. Information Given By : Patient Present in Room During Exam/Procedure : Significant other Mode of Arrival ED : Private vehicle Track : Medical Languages : Somali Vital Signs Assessed : Yes GCS Assessed : Yes Treatments Prior to Arrival : None Is Patient Female and 13-50 no hysterectomy : ЕЛЕНА Aguiar RN - 03/12/2017 10:22 CDT Vital Signs Temperature Core : 36.8 DegC(Converted to: 98.2 DegF) Peripheral Pulse Rate : 119 /min (HI) Respiratory Rate : 16 /min Systolic Blood Pressure : 90 mmHg (LOW) Diastolic Blood Pressure : 58 mmHg NIBP Mean : 69 mmHg SpO2 : 98 % Oxygen Therapy : Room air Height : 175.26 cm(Converted to: 5 ft 9 inch(es)) Actual Weight : 75 kg Actual Weight Conversion to Pounds : 165 lb Body Mass Index : 24.42 kg/m2 ANNY OSEIWali RODGERS 03/12/2017 10:22 CDT [place] Coma Eye Opening Response [place] : Spontaneously Best Verbal Response Arabella : Oriented Best Motor Response [place] : Obeys simple commands Arabella Coma Score : 15 SARAHJEN BrownLYN 03/12/2017 10:22 CDT Pain Assessment Pain Symptoms : Yes ANNY OSEIWali RODGERS 03/12/2017 10:22 CDT Pain Scale Pain Scale Verbal 0-10 : Open SARAH, ЕЛЕНА RN 03/12/2017 10:22 CDT Pain Pain Assessment Grid Pain 1 Location : Hand Laterality : Right Intensity : 8 SARAH ЕЛЕНА RODGERS 03/12/2017 10:22 CDT BREEZY DCP GENERIC CODE Tracking Acuity : 4 -Less Urgent Tracking Group : [facility] ED SARAH, ЕЛЕНА 03/12/2017 10:22 CDT Allergy (As Of: 03/12/2017 10:32:38 CDT) Allergies (Active) azithromycin Reactions: Hives ; Comments: Comment 1: AZITHROMYCIN DIHYDRATE ; Created By: LOLIS VICTOR RPh; Reaction Status: Active ; Category: Drug ; Substance: azithromycin ; Type: Allergy ; Severity: Moderate ; Updated By: LOLIS VICTOR RPh; Source: Paper Chart/Abstracting ; Reviewed Date: 03/12/2017 10:29 CDT doxycycline Reactions: Nausea & vomiting ; Comments: Comment 1: DOXYCYCLINE ; Created By: LOLIS VICTOR RPh; Reaction Status: Active ; Category: Drug ; Substance: doxycycline ; Type: Intolerance ; Severity: Moderate ; Updated By: LOLIS VICTOR RPh; Source: Paper Chart/Abstracting ; Reviewed Date: 03/12/2017 10:29 CDT Respiratory Airway : Patent Respirations : Unlabored Respiratory Pattern : Regular SARAH ЕЛЕНА RODGERS 03/12/2017 10:22 CDT Cardiovascular Heart Rhythm : Regular (Comment: tachycardia 120s [ЕЛЕНА OSEI RN 03/12/2017 10:22 CDT] ) Skin Color : Normal for ethnicity Skin Description : Dry Skin Temperature : Warm ЕЛЕНА OSEI RN - 03/12/2017 10:22 CDT Neurological Last Well Time Known : Not applicable Level of Consciousness : Alert Orientation : Oriented x 3 Characteristics of Speech : Appropriate for age ЕЛЕНА OSEI RN - 03/12/2017 10:22 CDT ED Psychosocial Affect/Behavior : Crying, Inappropriate Domestic Abuse Concerns : None Behavioral Health Screen/Safety Assmt : No ED Psychosocial Deviation : pt being very rude to staff ЕЛЕНА OSEI RN - 03/12/2017 10:22 CDT Gastrointestinal Nutrition ED : Adequate ЕЛЕНА OSEI RN - 03/12/2017 10:22 CDT Incision/Wound Incision/Wound Care Grid Activity : Assessed Wound Type : Laceration Location : Hand Laterality : Right Description : Dry, Edges Cleansing/ Irrigation : Cleansed Neurovascular Status : Neurovascular intact distal to injury, Skin distal to injury warm and pink ЕЛЕНА OSEI RN - 03/12/2017 10:22 CDT Musculoskeletal Fall Prevention Education Provided : Yes Standard Safety : Bed in low position, Call device within reach ЕЛЕНА OSEI RN - 03/12/2017 10:22 CDT Social Habits Exposure to Tobacco Smoke : Patient smokes Smoking Status : Current every day smoker Tobacco 2A : Yes Tobacco Use/Currently Using : Yes Tobacco Use/Last 30 Days : Yes Tobacco Use/Last 12 months : Yes Type : Cigarettes: 20-30 per day Tobacco Use/Advised to Quit : Yes ЕЛЕНА OSEI RN - 03/12/2017 10:22 CDT Alcohol Use Grid Alcohol Use : No ЕЛЕНА OSEI RN - 03/12/2017 10:22 CDT Recreational Drug Use Grid Drug Use : None ЕЛЕНА OESI RN - 03/12/2017 10:22 CDT Source: [facility] [employer] Document Id: [id number] CDT!93 documented in this encounter Miscellaneous Notes Miscellaneous - Conversion, Historical Provider Ser - 03/12/2017 2:24 PM CDT Coding Summary-Paper Based CODING DATE: 03/29/2017 FINAL [facility] STATUS: Left Against Medical Advice PAYOR: Medicare ADMIT DX: S61.421ALaceration with foreign body of right hand, initial encounter REASON FOR VISIT DX: S61.421A Laceration with foreign body of right hand, initial encounter FINAL DX: PRINCIPAL: S61.421A Laceration with foreign body of right hand, initial encounter SECONDARY: F17.210 Nicotine dependence, cigarettes, uncomplicated Z88.1 Allergy status to other antibiotic agents status W01.110A Fall on same level from slipping, tripping and stumbling with subsequent striking against sharp glass, initial encounter Y92.[address] in unspecified non-institutional (private) residence as the place of occurrence of the external cause PROCEDURES DOCTOR NAME DATE NOTE: The code number assigned matches the documented diagnosis and / or procedure in the patient's chart. However, the narrative phrase printed from the coding software may appear abbreviated, or result in slightly different terminology. Coded By: AURELIA ROD Date Saved: 03/29/2017 12:31 pm Source: [employer] Document Id: [id number] [place]ism[place] - Елена Osei R.N. - 03/12/2017 2:21 PM CDT Communication Note Communication Note Entered On: 03/12/2017 14:22 CDT Performed On: 03/12/2017 14:21 CDT by ЕЛЕНА OSEI RN Communication Assessment Communication Note : pt was swearing and being noncompliant and was trying to pull his IVout in the elevator on the way up to inpatient. When we got to room 3107 pt jumped out of wc and wasswearing and yelling at staff. IV removed and pt signed out AMA. ЕЛЕНА OSEI RN - 03/12/2017 14:21 CDT Source: [employer] Document Id: [id number] CDT!3 Miscellaneous - Aurelia Tran R.N. - 03/12/2017 2:10 PM CDT Communication Note Communication Note Entered On: 03/12/2017 14:31 CDT Performed On: 03/12/2017 14:10 CDT by AURELIA TRAN RN Communication Subject of Note : Family/patient concern or action Assessment Communication Note : Patient was being transferred from the Emergency Department to the ICU to be held for pain control until he went to surgery to remove glass from his hand. Patient was swearing and yelling at Eloisa the ED nurse while she transported him in a wheel chair towards the ICU.He stated he was going to matt us and wanted us to take his IV out right now. I stated there is a risk he may get infection and he stated back to me he did not care. The female trash truck driver that was with him tried to convince him to stay and have his hand treated. He refused and I removed his IV, placed a 2x2 on the site with some coban. He did sign the AMA form from ED nurse Eloisa. Intervention : Physician/Provider notified Name of provider notified : JEZ LOMELI MD Name of provider notified d/t : 03/12/2017 14:20 CDT AURELIA TRAN RN - 03/12/2017 14:19 CDT Source: [employer] Document Id: [id number] CDT!7 Miscellaneous - Елена Osei R.N. - 03/12/2017 2:04 PM CDT Valuables/Belongings Valuables/Belongings Entered On: 03/12/2017 14:05 CDT Performed On: 03/12/2017 14:04 CDT by ЕЛЕНА OSEI RN Valuables/Belongings Comment : belongings sent with pt ЕЛЕНА OSEI RN - 03/12/2017 14:04 CDT Source: [employer] Document Id: [id number] CDT!3 Miscellaneous - Grover Atkins M.D. - 03/12/2017 12:42 PM CDT School Excuse March 12, 2017 JOHN GAVIN [address] [place] [address] Dear JOHN GAVIN, You were examined in the [place] ER today for an injury. Mai accompanied you and so she missedwork today. Sincerely, GROVER ATKINS [address] [place] [address] Electronic Signature Electronically Signed By: GROVER ATKINS MD On: March 12, 2017 This document has images extracted. Source: [facility] POWERCHART Document Id: [id number] Miscellaneous - Елена Osei R.N. - 03/12/2017 10:08 AM CDT Facility Charge Ticket 2.0 11.0 DX Facility Charge Ticket 2.0 11.0 DX Entered On: 03/12/2017 14:05 CDT Performed On: 03/12/2017 10:08 CDT by ЕЛЕНА OSEI RN Facility Charge Ticket 2.0 11.0 DX ED Other Charges : Standard ED Encounter TVL Level Translated RTF : Hand laceration TVL:2 TVL Level for Facility Charge Ticket : Level 2 Arrival Mode Calc : 1 Mode of Arrival ED : Private vehicle [facility] Mode of Arrival Interpreted : Standard [facility] Process Management : None Order Management RTF : Xray XR Hand Right 3 or more views,03/12/17 10:30,GROVER ATKINS MD Completed XR Wrist Right 3 or more views,03/12/17 10:30,GROVER ATKINS MD Completed XR Elbow Right 2 views,03/12/17 10:30,GROVER ATKINS MD Completed FL Fluoroscopy less than 1 hour,03/12/17 12:06,GROVER ATKINS MD Completed EKG / Respiratory / Ancillary RT - Respiratory Equipment Assessment,03/12/17 13:00,SYSTEM, SYSTEM Ordered [facility] Order Management : EKG, RT, Ancillary Services, Xray - plain films 30 Minutes Critical Care : No Nursing Notes RTF : Nursing Notes ED Primary Assessment,04/14/17 10:22,ЕЛЕНА OSEI WOOL HANDLER Nurse Reassess,03/12/17 13:11,ЕЛЕНА OSEI RN [facility] Nursing Assessment : Triage and 1-2 nursing assessments [facility] Disposition : Admit - Observation, Inpatient, or other Outpatient [facility] Total Points with Diagnosis Control : 10 [facility] Visit Level : 24916 Level 4 Treatments Prior to Arrival : None ЕЛЕНА OSEI RN - 03/12/2017 14:05 CDT [facility] Document Id: [id number] CDT!18 documented in this encounter Plan of Treatment Not on filedocumented as of this encounter Visit Diagnoses Not on filedocumented in this encounter
--- OUTSIDE RECORDS SUMMARY | 2022-09-25 11:02 | XMS_ITS | Encounter Summary ---
:1990 Author Organization [facility] Address [address] [place] [address] Care Team Providers Name Role Phone Unavailable Primary Care Provider Unavailable Encounter Details Date Type Department Care Team Description 03/22/2017 Hospital Encounter HX [facility] Annette Arevalo M .D. Social History Tobacco Use Types Packs/Day Years [...] Concentration - - Weight - - Height 175 cm (5' 8.9) 03/22/2017 1:22 PM CDT Body Mass Index - - documented in this encounter Consult Notes Annette Arevalo M.D. - 03/22/2017 12:55 PM CDT [id number] The patient is here for postop check of his right hand. He underwent exploration, debridement and removal of a shard of glass. The individual is all in all doing well. He has mild hypesthesia to the area of the injury. He has difficulty moving his finger particularly into extension due to pulling overthe laceration area. PHYSICAL EXAMINATION He does have intact flexor profundus and superficialis as well as MCP flexion. Sensation otherwise intact dorsally. Slightly decreased around the laceration area. He is given instructions for care. IMPRESSION/REPORT/PLAN He had his sutures removed today. He should be able follow up with us on an as- needed basis. He was cautioned against overzealous use. Annette Arevalo M.D./magaly Electronically Signed By: ANNETTE AREVALO MD On: 03/23/2017 07:37 AM Source: [facility] Document Id: [id number] documented in this encounter Miscellaneous Notes Miscellaneous - Toro Nieto LJacielP.NJaciel - 03/22/2017 1:22 PM CDT Adult Financial Analyst Intake/History Adult Financial Analyst Intake/History Entered On: 03/22/2017 13:23 CDT Performed On: 03/22/2017 13:22 CDT by CHITRA NIETO LPN Intake Chief Complaint : suture removal from right palm hand. Height : 175 cm(Converted to: 5 ft 9 inch(es), 69 inch(es)) CHITRA NIETO LPN - 03/22/2017 13:22 CDT General Info Information Given By : Patient Preferred Communication Mode : Verbal Languages : [place] Is Patient Female and 13-50 no hysterectomy : No CHITRA NIETO LPN - 03/22/2017 13:22 CDT Subjective Pain Symptoms : No CHITRA NIETO LPN - 03/22/2017 13:22 CDT Dependent Habits Exposure to Tobacco Smoke : Patient smokes Smoking Status : Current every day smoker Tobacco 2A : Yes Tobacco Use/Currently Using : Yes Tobacco Use/Last 30 Days : Yes Tobacco Use/Last 12 months : Yes Type : Cigarettes: Less than 20 per day Tobacco Use/Advised to Quit : No CHITRA NIETO LPN - 03/22/2017 13:22 CDT Recreational Drug Use Grid Drug Use : None CHITRA NIETO LPN - 03/22/2017 13:22 CDT Source: [facility] POWERCHART Document Id: [id number] CDT!23 documented in this encounter Plan of Treatment Not on filedocumented as of this encounter Visit Diagnoses Not on filedocumented in this encounter
--- OUTSIDE RECORDS SUMMARY | 2022-09-25 11:02 | XMS_ITS | Encounter Summary ---
:1990 Author Organization [facility] Address [address] [place] [address] Care Team Providers Name Role Phone Julian Santana M.D. Primary Care Provider Reason for Visit Reason Comments Finger Laceration cut his finger with pocket k nife while open a box. GCS 15 Encounter Details Date Type Department Care Team Description 08/13/2018 Emergency [place] Charity Rogers Lacera tion Blood Vessel Department SUB ARC OPERATOR, C.N.P. Left Index Finger [address] [place] (Primary Dx) [place] [address] [place], [place] [phone] Social History Tobacco Use Types Packs/Day Years [...] Sign Reading Time Taken Comments Blood Pressure 115/73 08/13/2018 6:12 PM CDT Pulse 80 08/13/2018 7:15 PM CDT Temperature 36.6 ??C (97.9 ??F) 08/13/2018 6:10 PM CDT Respiratory Rate 16 08/13/2018 7:15 PM CDT Oxygen Saturation 99% 08/13/2018 7:15 PM CDT Inhaled Oxygen Concentration - - Weight 76.7 kg (169 lb 1.5 oz) 08/13/2018 6:11 PM CDT Height 177.8 cm (5' 10) 08/13/2018 6:11 PM CDT Body Mass Index 24.26 08/13/2018 6:11 PM CDT documented in this encounter Discharge Instructions Discharge InstructionsHarCharity michaud APRN - 08/13/2018 7:14 PM CDT Wound care as discussed. Monitor closely for sign or symptom of infection, start antibiotic if warranted. Follow up with primary provider if no improvement or concerns. Return to ER with worsening. AttachmentsThe following attachments cannot be sent through Care Everywhere. Stitches Reese or Adhesive Wound Closure Faqm-ki-Alti (Moroccan)documented in this encounter Medications at Time of Discharge Medication Sig Dispensed Refills Start Date End Date cephalexin (KEFLEX) 500 Take 1 capsule (500 21 capsule 0 08/20/2018 mg capsule mg total) by mouth every 8 (eight) hours for 7 days. documented as of this encounter Procedure Notes Charity Rogers APRN - 08/13/2018 7:19 PM CDTAssociated Order(s): LACERATION REPAIR Procedure Laceration Repair Date/Time: 08/14/2018 10:56 PM Performed by: CHARITY ROGERS Authorized by: CHARITY ROGERS Pre-procedure details: Location: Finger Length (cm): 2.5 Circulation distal to injury: capillary refill < 2 sec, warm and pink Movement distal to injury: normal Sensation distal to injury: normal Area cleansed with: Soap and water and povidone/iodine Amount of cleaning: Standard Appropriate hand hygiene, gown, cap, mask, protective eyewear, sterile gloves, skin preparation, sterile drape, and strict aseptic technique were utilized as applicable for the procedure.: Yes Sedation/Anesthesia (see MAR for exact dosages): Anesthesia method: Local infiltration Procedure details: Repair type: Simple Limited defect created (wound extended): yes Contaminated: no Wound exploration: wound explored through full range of motion Repair method: Sutures Suture size: 4-0 Suture material: Nylon Suture technique: Simple interrupted Number of sutures: 3 Approximation: Close Post-procedure details: Procedure completed successfully: yes Tetanus status up to date: Up to date Dressing Applied: yes Dressing applied: Adhesive bandage and antibiotic ointment Circulation distal to injury: capillary refill < 2 sec, warm and pink Movement distal to injury: normal Sensation distal to injury: normal Complications: no immediate complications Charity Rogers APRN 08/14/182256 documented in this encounter ED Notes Charity Rogers APRN - 08/13/2018 6:25 PM CDT SUBJECTIVE CHIEF COMPLAINT/REASON FOR VISIT Finger Laceration (cut his finger with pocket knife while open a box. GCS 15) HISTORY OF PRESENT ILLNESS Alert and orientated 27 year old male presents with left 2nd digit laceration palmar aspect with boxcutter. Td up to date. Bleeding controlled, 2.5cm laceration to subcut tissues without foreign body.ROM and CMS intact. Patient lives at home, is a smoker. REVIEW OF SYSTEMS Limited ROS performedReason unable to perform ROS: focused assessment. Constitutional: See HPI Skin: See HPI OBJECTIVE Initial Vitals Temperature Pulse Rate Heart Rate Resp Rate Blood Pressure SpO2 08/13/18 1810 08/13/18 1810 -- 08/13/18 1810 08/13/18 1812 08/13/18 1810 36.6 ??C 109 20 115/73 98 % Pain Score 08/13/18 181 4 PHYSICAL EXAMINATION Constitutional: He appears well-nourished. See HPI HENT: Head: Normocephalic. Mouth/Throat: Mucous membranes are moist. Eyes: Conjunctivae are normal. Cardiovascular: Normal rate and regular rhythm. Capillary refill: takes less than 3 seconds, Pulmonary/Chest: Effort normal. Musculoskeletal: Normal range of motion. Neurological: He is alert and oriented to person, place, and time. Skin: Skin is warm and dry. See HPI Psychiatric: He has a normal mood and affect. ASSESSMENT/PLAN Impression and Plan Differential Diagnosis: Laceration, abrasion, contusion IRP: Laceration repair performed as per procedure note.. Final Diagnoses: as of Aug 14 2251 Laceration Blood Vessel Left Index Finger Initial Charity Rogers APRN 08/14/18 2256 documented in this encounter Plan of Treatment Not on filedocumented as of this encounter Procedures Procedure Name Priority Date/Time Associated Diagnosis Comme nts LACERATION REPAIR Routine 08/13/2018 7:19 PM Resu lts for this CDT procedure are i n the results section. documented in this encounter Results Laceration Repair (08/13/2018 7:19 PM CDT) Narrative Charity Rogers APRN - 08/13/2018 7:19 P M CDT Charity Rogers APRN ? 08/14/2018 10:57 PM Laceration Repair Date/Time: 08/14/2018 10:56 PM Performed by: CHARITY ROGERS Authorized by: CHARITY ROGERS Pre-procedure details: ??Location: ??Finger ??Length (cm): ??2.5 ??Circulation distal to injury: capilla ry refill < 2 sec, warm and pink ?Movement distal to injury: normal ?Sensation distal to injury: normal ?Area cleansed with: ??Soap and water and povidone/iodine ??Amount of cleaning: ??Standard ??Appropriate hand hygiene, gown, cap, mask, protective eyewear, sterile gloves, skin preparation, sterile drape, and strict aseptic technique were utilized as applicable for the procedure .: Yes ?? Sedation/Anesthesia (see MAR for exact d osages): ??Anesthesia method: ??Local infiltrati on Procedure details: ??Repair type: ??Simple ??Limited defect created (wound extende d): yes ?Contaminated: no ?Wound exploration: wound explored thr ough full range of motion ?Repair method: ??Sutures ??Suture size: ??4-0 ??Suture material: ??Nylon ??Suture technique: ??Simple interrupte d ??Number of sutures: ??3 ??Approximation: ??Close Post-procedure details: ??Procedure completed successfully: yes ?Tetanus status up to date: ??Up to da te ??Dressing Applied: yes ?Dressing applied: ??Adhesive bandage and antibiotic ointment ??Circulation distal to injury: capilla ry refill < 2 sec, warm and pink ?Movement distal to injury: normal ?Sensation distal to injury: normal ?Complications: no immediate complicat ions ?? Charity Rogers APRN, C.N.P. PROCEDURE/MINOR SURGICAL OR DERABLES documented in this encounter Visit Diagnoses Diagnosis Laceration Blood Vessel Left Index Finge r Initial - Primary documented in this encounter Administered Medications Inactive Administered Medications - up to 3 most recent administrations Medication Order MAR Action Action Date Dose Rate Site lidocaine 10 mg/mL (1 %) Given by Other 08/13/2018 6:27 PM CDT 30 mL injection 30 mL (XYLOCAINE) 30 mL, infiltration, Once, On 08/13/18 at 1827, For 1 dose documented in this encounter Active and Recently Administered Medications Times are shown in CDT. Scheduled Medication Order 08/11/2018 08/12/2018 08/13/2018 lidocaine 10 mg/mL (1 %) injection 30 mL (XYLOCAINE) (COMPLETED) 1827 (Given by Other - Provider: Emely Fonseca R.N. - Comment: HEALTH AND SAFETY INSTRUCTOR) 30 mL, infiltration, Once, 08/13/18 at 1827, For 1 dose documented in this encounter Care Teams Central Processing Tech Relationship Specialty Start Date End Date Julian Santana M.D. PCP - General 05/13/17 [address] [place] [address] documented as of this encounter
--- OUTSIDE RECORDS SUMMARY | 2022-09-25 11:02 | XMS_ITS | Encounter Summary ---
:1990 Author Organization [facility] Address [address] [place] [address] Care Team Providers Name Role Phone Julian Santana M.D. Primary Care Provider Reason for Visit Reason Comments Mental Health Problem Mother brought him in for ev aluation. Encounter Details Date Type Department Care Team Description 01/12/2018 Emergency [place] [facility] Emanuel Gandhi M.D. [address] [place] [address] Abuse Substance Department Grover Can M.D. [address] [place] [address] Polysubstance (HCC) [address] [employer] (Primary Dx) [place] [address] Social History Tobacco Use Types [...] Sign Reading Time Taken Comments Blood Pressure 129/71 01/12/2018 7:35 PM COUNSELING PSYCHOLOGIST Pulse 96 01/12/2018 7:35 PM COUNSELING PSYCHOLOGIST Temperature - - Respiratory Rate 16 01/12/2018 7:35 PM COUNSELING PSYCHOLOGIST Oxygen Saturation 97% 01/12/2018 7:35 PM COUNSELING PSYCHOLOGIST Inhaled Oxygen Concentration - - Weight 83.2 kg (183 lb 6.8 oz) 01/12/2018 2:27 PM COUNSELING PSYCHOLOGIST Height 177.8 cm (5' 10) 01/12/2018 2:27 PM COUNSELING PSYCHOLOGIST Body Mass Index 26.32 01/12/2018 2:27 PM COUNSELING PSYCHOLOGIST documented in this encounter ED Notes Grover Can M.D. - 01/12/2018 7:36 PM CST Care of patient transferred to dc by Dr. Gandhi and WICHO Song. John Gavin is a 27 y.o. male patient who presented with polysubstance abuse. Pt reports to me that he wants help in regard to his methamphetamine use. He admits to be depressed, but he denies suicidal ideation. He is feeling more anxious being here in the Ed. Due to anxiety, will give a tivan 2mg po. VITAL SIGNS BP 129/71 (BP Location: Right arm, Patient Position: Standing) Pulse 96 Resp 16 Ht 177.8 cm Wt 83.2 kg SpO2 97% BMI 26.32 kg/m?? ED Course Final Diagnoses: as of Jan 12 2126 Abuse Substance Polysubstance Pt [facility] at [facility] in [place]. Dr. Joshua accepting physician. Transport via law enforcement. Grover Can M.D. 01/12/182126 SELING PSYCHOLOGIST Adelfo Gandhi M.D. - 01/12/2018 3:24 PM CST SUBJECTIVE CHIEF COMPLAINT/REASON FOR VISIT Mental Health Problem (Mother brought him in for evaluation. ) HISTORY OF PRESENT ILLNESS I have personally performed a [id number] diagnostic evaluation on this patient. My findings are as follows: 27-year-old male with a history of bipolar disorder and attention deficit with hyperactivity presents to the emergency department for evaluation of increased depression suicidal thoughts now that he stop taking methamphetamine again. He does not have a specific plan. He mostly is interested in getting back on medications. Exam shows: see physical exam below. See the physician assistant professor of marine biology note for additional details. We did discuss the medical decision-making, results of the testing done, medication management, and follow-up and disposition planning. REVIEW OF SYSTEMS Constitutional: Negative for chills and fever. Psychiatric/Behavioral: Positive for depression and suicidal ideas. OBJECTIVE Initial Vitals Temp Pulse Heart Rate Resp BP SpO2 -- -- -- -- -- -- Pain Score -- PHYSICAL EXAMINATION Constitutional: He appears well-nourished. Cardiovascular: Regular rhythm and normal heart sounds. Edema: no edema noted Pulmonary/Chest: Effort normal. Psychiatric: He exhibits a depressed mood. He expresses suicidal ideation. He expresses no suicidal plans. Nursing note and vitals reviewed. ASSESSMENT/PLAN ED Course as of Jan 12 1904 Wed Jan 12, [id number] Patient eloped and the police were notified. He is placed on a 72 hour hold for both chemical dependence and mental illness and a threat to himself and possibly others. 1839 The police did find the patient and return him to the emergency department. He was notified he was placed on a 72 hour hold. His labs look okay other than the expected positive amphetamines and marijuana on his urine tox screen. I suspect the tricyclics are related to the amphetamines cross-reactivity. We were going to discuss with him possibly going to [facility] which is when he did leave. He will be signed off Dr. Grover Can to do a final disposition. I would still consider the [facility] with the amphetamine still on the urine tox screen. [address] Grover Can to do a final disposition. I have personally seen and examined this patient. I have fully participated in the care of this patient. I have reviewed all clinical information including history, physical exam, orders, and plan. I agree with the note of the METAL ROOM DENTAL TECHNICIAN/PA. Adelfo Gandhi M.D. 01/12/181903 Garrett Toledo P.A.-C. - 01/12/2018 3:01 PM CST SUBJECTIVE CHIEF COMPLAINT/REASON FOR VISIT Mental Health Problem (Mother brought him in for evaluation. ) HISTORY OF PRESENT ILLNESS 27 year old male with a history of tobacco abuse, headache, constipation, tic disorder, ADHD, and bipolar I disorder presents to the Emergency Department with his girlfriend, Mai, for evaluation of a mental health problem. The patient reports that he is has not taken medications or been evaluatedregarding his mental health since the age of 19. He explains that he is primarily here because he wants help and would like to get back on his medications and help with his drug problem. He reports that he has been on a meth binge over the last 6 months which he used 1-1.5 g daily and has continued touse marijuana for a medical thing and it's really just a drug to me. He states that he last used meth on 01/06 and wants help before I lose everything. The patient reports that when he is off of the meth, he is depressed and suicidal, but he does not have any real plan. He states that he has not had any alcohol in the last 4 months, but he will drink if he is not using meth. The patient reports that he requested to come in after experiencing hallucinations and freaking out and scaring everyone after his last meth use. He reports that yesterday he was experiencing chest pain, SOB, and vomiting which he attributes to anxiety and panic attacks. The patient explains that he is also experiencing chills and feels numb. Additionally, he reports a suicide attempt a few years ago when he was on house arrest and his father and brother also committed suicide. History provided by: Patient REVIEW OF SYSTEMS Constitutional: Negative for chills and fever. HENT: Negative. Eyes: Negative. Respiratory: Negative for shortness of breath. Cardiovascular: Negative for chest pain. Gastrointestinal: Negative for abdominal pain, diarrhea, nausea and vomiting. Endocrine: Negative. Genitourinary: Negative. Negative for dysuria. Musculoskeletal: Negative. Negative for myalgias. Skin: Negative. Allergic/Immunologic: Negative. Neurological: Negative. Negative for seizures and syncope. Hematological: Negative. Psychiatric/Behavioral: Positive for depression, substance abuse and suicidal ideas (no plan). The patient is nervous/anxious. OBJECTIVE Initial Vitals [01/12/181934] Temp Pulse Rate Heart Rate Resp Rate Blood Pressure SpO2 -- 96 -- 16 129/71 97 % Pain Score -- PHYSICAL EXAMINATION Constitutional: He appears well-developed and well-nourished. No distress. HENT: Head: Normocephalic and atraumatic. No signs of injury. Nose: Nose normal. Mouth/Throat: Oropharynx is clear and moist. Mucous membranes are moist. Eyes: Conjunctivae are normal. Right eye exhibits no discharge. Left eye exhibits no discharge. Neck: Normal range of motion. Neck supple. Cardiovascular: Regular rhythm, S1 normal, S2 normal and normal heart sounds. No tachycardia and no bradycardia present. Exam reveals no friction rub. Pulses are palpable. Pulses are no weak pulses. No murmur heard.Capillary refill: takes less than 3 seconds, Pulmonary/Chest: Effort normal and breath sounds normal. No respiratory distress. Abdominal: Soft. He exhibits no distension. There is no tenderness. There is no rebound and no guarding. Musculoskeletal: He exhibits no deformity. Neurological: He is alert. He is not disoriented. Skin: Skin is warm. Psychiatric: He has a normal mood and affect. Mood is unpredictable, moving from calm to upset within short period of time. Not violent. Nursing note and vitals reviewed. ASSESSMENT/PLAN Impression and Plan Patient hemodynamically stable, afebrile. Brought in by his family with complaint of suicidal ideation and threats to others. Patient states he used methamphetamine 6 days ago and marijuana this morning. Endorses thoughts of harming self but denies a plan. States this happens commonly as he comes off the methamphetamine high. Endorses history of bipolar disorder that is currently untreated and he states he wishes to pursue treatment. This history was confirmed by the patient's mother who fears for the patient and her family safety. States he has made threats in the past and worries he may follow thr ough. She does have legal guardianship over him and would like him admitted for continued care. Physical exam unremarkable. UDS positive for methamphetamine and marijuana. Slight leukocytosis of 10.3. All additional labs normal or negative. I believe the patient to be a danger to self and others despite not having a concrete plan of suicide at this time. His family's report of behavior is significant to me and his response to our treatment options was dismissive and verbally agressive. I doubt his sincerity for wanting help and also question his capacity to make decisions at this time. Possible influence from substance abuse adding to his behavior. I do not suspect at this time this to be related to infection or traumatic injury. Appears to be primarily psychogenic. Patient did not require pain medication and declined when offered. Patient tried to elope prior to workup completion but was convinced to stay. He did elope after he was presented with admission to detoxification unit or consultation with behavior health. Once he eloped the police brought him back andthey placed him on a hold pending admission to behavioral health facility for further evaluation andtreatment. The patient was resistant however the mother was satisfied with this plan and believed [facility] the best option at this time. Additionally offered behavior Health Services to the mother given her continued stress in dealing with her son. She expressed thanks but declined. I placed an order for nonviolent restraint. Police officers assisted in providing security and left once the patient was calm. Patient was provided a meal and was stable and calm upon transfer of care to Dr. Can at shift change. My care was provided in coordination with and under the supervision of the my attending physician, Dr. Gandhi. . Reviewed and summarized previous medical records including: Lab results. I personally reviewed the lab result(s) and my interpretation is: Abnormal ED Course as of Jan 17 811WedJan 12, 2018 1600 Salicylate, S: <1.0 1600 Ethanol, S: <10 1615 Patient desired to leave before workup completed. States his mother told him he would be held for 72 hours. It was conveyed to the patient that this is not the case and we are awaiting his urine sample results. He agreed to stay and provide a urine sample. 1800 Patient endorsed methamphetamine use 6 days ago. Amphetamines: (!) Unconfirmed Positive 1800 Patient endorsed marijuana use earlier today. Tetrahydrocannabinol: (!) Unconfirmed Positive 181 Patient eloped and police notified. Placed patient on a hold given concern for his and his families safety. 1844 Patient returned to ED via police escort. Stable, displaying normal speech and behavior overall. Final Diagnoses: as of Jan 17 811 Abuse Substance Polysubstance Care Handoff Row Name 01/17/18 0811 Care Handoff Type of Handoff Shift change handoff Providers name Dr. Can I personally performed the services described in this documentation, as scribed in my presence, and it is both accurate and complete. Garrett Saeed P.A.-C. 01/17/18 0811 SELING PSYCHOLOGIST Jerri Andujar R.N. - 01/12/2018 2:45 PM CST Pt states to nurse that he is here because he wants treatment, Has been on a meth binge x 6 months doing 1 g to 1.5 g a day, sharon too stopped doing this last . Has slept a few days but awake more yest and today. Was hallucinating feeling like everyone is out to hurt me My girlfriend broke upwith me I was accusing her of things that werent true. Freaking out scaring everyone around him. I just dont want to do it any more. Jerri Andujar R.N. 01/12/18 1505 SELING PSYCHOLOGIST Cory Ro R.N. - 01/12/2018 2:33 PM CST Patient was brought in by his mother for evaluation. She he is bipolar and is not on medications. Patient reports he has not taking any ADHD medications or Bipolar medications for 10 years. He reports thoughts of suicide over the past week. He reports no plan. He does reports that he does want to get back on his medications. He reports using Meth and marijuana daily, but has not used any drugs since last . Cory Ro R.N. 01/12/18 1438 SELING PSYCHOLOGIST documented in this encounter Plan of Treatment Not on filedocumented as of this encounter Procedures Procedure Name Priority Date/Time Associated Comments Diagnosis URINALYSIS WITH STAT 01/12/2018 5:27 PM Result s for this MICROSCOPIC IF COUNSELING PSYCHOLOGIST procedure are in INDICATED, U the results section. MICROSCOPIC MANUAL STAT 01/12/2018 5:27 PM Res ults for this COUNSELING PSYCHOLOGIST procedure are i n the results section. DRUG SCREEN URINE STAT 01/12/2018 5:27 PM Resu lts for this COUNSELING PSYCHOLOGIST procedure are i n the results section. ETHANOL, S STAT 01/12/2018 3:24 PM Results f or this COUNSELING PSYCHOLOGIST procedure are i n the results section. HEPATIC FUNCTION STAT 01/12/2018 3:24 PM Resul ts for this PANEL, S COUNSELING PSYCHOLOGIST procedure are i n the results section. CBC WITH DIFFERENTIAL, STAT 01/12/2018 3:24 PM Results for this B COUNSELING PSYCHOLOGIST procedure are i n the results section. THYROID-STIMULATING STAT 01/12/2018 3:24 PM Re sults for this HORMONE-SENSITIVE COUNSELING PSYCHOLOGIST procedure are in (S-TSH) the results section. ACETAMINOPHEN LEVEL, S STAT 01/12/2018 3:24 PM Results for this COUNSELING PSYCHOLOGIST procedure are i n the results section. SALICYLATE LEVEL, S STAT 01/12/2018 3:24 PM Re sults for this COUNSELING PSYCHOLOGIST procedure are i n the results section. BASIC METABOLIC PANEL, STAT 01/12/2018 3:24 PM Results for this S/P COUNSELING PSYCHOLOGIST procedure are i n the results section. documented in this encounter Results (ABNORMAL) Microscopic Manual (01/12/2018 5:27 PM COUNSELING PSYCHOLOGIST) Analysis Performed At Patho logist Time Signature White Blood None Seen /hpf 01/12/2018 [facility] Cells 5:41 PM [facility] Comment: ----REFERENCE VALUE---- Males: 0-3 Females: 0-10 Unknown: 0-10 Red Blood Cells Occ-2 0 - 2 /hpf 01/12/2018 5:[address] [facility] Crystals Amorphous (A) None Seen /lpf 01/12/2018 5:41 PM [facility] Mucus Present /hpf 01/12/2018 5:[address] [facility] Specimen Anatomical Collection Method Collection Time Receive d Time (Source) Location / / Volume Laterality Urine 01/12/2018 5:27 PM 8 5:41 COUNSELING PSYCHOLOGIST PM COUNSELING PSYCHOLOGIST Garrett Saeed P.A.-C. LAB URINE ORDERABLES Performing Organization Address City/State/ZIP Code Phon e Number [facility] [address] [address] [place] [facility] (ABNORMAL) Drug Screen Urine (01/12/2018 5:27 PM COUNSELING PSYCHOLOGIST) Patholo gist Method Time Signature Amphetamines, Unconfirmed Negative 01/12/2018 [facility] U Positive (A) 5:49 PM COUNSELING PSYCHOLOGIST [facility] [place] [facility] Comment: ----ADDITIONAL INFORMATION---- Accountant Budget's Cutoff: 500 ng/mL Barbiturates, U Negative Negative 01/12/2018 5:49 PM [facility] Comment: ----ADDITIONAL INFORMATION---- Accountant Budget's Cutoff: 200 ng/mL Benzodiazepines, U Negative Negative 01/12/2018 5:49 PM [facility] Comment: ----ADDITIONAL INFORMATION---- Accountant Budget's Cutoff: 150 ng/mL Buprenorphine, U Negative Negative 01/12/2018 5:49 PM [facility] Comment: ----ADDITIONAL INFORMATION---- Accountant Budget's Cutoff: 10 ng/mL Cocaine Negative Negative 01/12/2018 5:49 PM [facility] Comment: ----ADDITIONAL INFORMATION---- Accountant Budget's Cutoff: 150 ng/mL Methadone, U Negative Negative 01/12/2018 5:49 PM [facility] Comment: ----ADDITIONAL INFORMATION---- Accountant Budget's Cutoff: 200 ng/mL Methamphetamines, U Negative Negative 01/12/2018 5:49 PM [facility] Comment: ----ADDITIONAL INFORMATION---- Accountant Budget's Cutoff: 500 ng/mL Opiates, U Negative Negative 01/12/2018 5:49 PM [facility] Comment: ----ADDITIONAL INFORMATION---- Accountant Budget's Cutoff: 100 ng/mL Oxycodone Negative Negative 01/12/2018 5:49 PM [facility] Comment: ----ADDITIONAL INFORMATION---- Accountant Budget's Cutoff: 100 ng/mL Phencyclidine, U Negative Negative 01/12/2018 5:49 PM [facility] Comment: ----ADDITIONAL INFORMATION---- Accountant Budget's Cutoff: 25 ng/mL Propoxyphene, U Negative Negative 01/12/2018 5:49 PM [facility] Comment: ----ADDITIONAL INFORMATION---- Accountant Budget's Cutoff: 300 ng/mL Tetrahydrocannabinol, U Unconfirmed Negative 01/12/2018 5:4 9 [facility] Positive (A) PM [facility] Comment: ----ADDITIONAL INFORMATION---- Accountant Budget's Cutoff: 50 ng/mL Tricyclic Unconfirmed Negative 01/12/2018 5:49 [facility] Antidepressants, U Positive (A) PM [facility] Comment: ----ADDITIONAL INFORMATION---- Accountant Budget's Cutoff: 300 ng/mL THE ABOVE DRUG SCREEN PANEL IS FOR MED ICAL PURPOSES ONLY Specimen Anatomical Collection Method Collection Time Receive d Time (Source) Location / / Volume Laterality Urine (Urine, 01/12/2018 5:27 PM 01/12/20 18 5:29 Clean Catch) COUNSELING PSYCHOLOGIST PM COUNSELING PSYCHOLOGIST Adelfo Gandhi M.D. LAB URINE ORDERABLES Performing Organization Address City/State/ZIP Code Phon e Number [facility] [address] [place] [address] [place] [facility] (ABNORMAL) Urinalysis with Microscopic if Indicated (01/12/2018 5:27 PM COUNSELING PSYCHOLOGIST) Analysis Performed At [facility] Time Signature Source Midstream 01/12/2018 [facility] 5:41 PM [facility] Clarity Slightly Clear 01/12/2018 [facility] Cloudy (A) 5:41 PM [facility] Color Yellow 01/12/2018 [facility] 5:41 PM [facility] Comment: ----REFERENCE VALUE---- Colorless Yellow [place] Blood Negative Negative 01/12/2018 5:41 PM [facility] [place] [facility] Nitrite Negative Negative 01/12/2018 5:41 PM [facility] [place] [facility] Leukocyte Esterase Negative Negative 01/12/2018 5:41 PM CS T [facility] [place] [facility] Protein, U Negative mg/dL 01/12/2018 5:41 PM [facility] [place] [facility] Comment: ----REFERENCE VALUE---- Negative Trace Glucose Negative Negative mg/dL 01/12/2018 5:41 PM [facility] [place] [facility] Ketone Negative Negative mg/dL 01/12/2018 5:41 PM [facility] [place] [facility] Bilirubin Negative Negative 01/12/2018 5:41 PM COUNSELING PSYCHOLOGIST [facility] pH 6.5 5.0 - 8.0 01/12/2018 5:41 PM COUNSELING PSYCHOLOGIST [facility] Specific [place] 1.016 1.001 - 1.035 01/12/2018 5:41 PM COUNSELING PSYCHOLOGIST [facility] Urobilinogen 0.2 0.2 - 1.0 01/12/2018 5:41 PM COUNSELING PSYCHOLOGIST [facility] Specimen Anatomical Collection Method Collection Time Receive d Time (Source) Location / / Volume Laterality Urine (Urine, 01/12/2018 5:27 PM 01/12/20 18 5:29 Clean Catch) COUNSELING PSYCHOLOGIST PM COUNSELING PSYCHOLOGIST Garrett Saeed P.A.-C. LAB URINE ORDERABLES Performing Organization Address City/[facility]/ZIP Code Phon e Number [facility] [place] [address] [place] [facility] Salicylate Level (01/12/2018 3:24 PM COUNSELING PSYCHOLOGIST) athologist Signature Salicylate, S <1.0 <30.0 mg/dL 01/12/2018 [facility] 3:52 PM [facility] Specimen Anatomical Collection Method Collection Time Receive d Time (Source) Location / / Volume Laterality Blood 01/12/2018 3:24 PM 8 3:27 COUNSELING PSYCHOLOGIST PM COUNSELING PSYCHOLOGIST Garrett Saeed P.A.-C. LAB BLOOD ADD-ON Performing Organization Address City/[facility]/ZIP Code Phon e Number [facility] [address] [facility] [place] [address] [place] [facility] Ethanol Level, Serum (01/12/2018 3:24 PM COUNSELING PSYCHOLOGIST) P athologist Signature Ethanol, S <10 <10 mg/dL 01/12/2018 [facility] 3:52 PM [facility] Specimen Anatomical Collection Method Collection Time Receive d Time (Source) Location / / Volume Laterality Blood 01/12/2018 3:24 PM 8 3:27 COUNSELING PSYCHOLOGIST PM COUNSELING PSYCHOLOGIST Garrett Saeed P.A.-C. LAB BLOOD NON ADD-ON Performing Organization Address City/[facility]/ZIP Code Phon e Number [facility] [place] [place] [address] [place] [facility] Acetaminophen Level (01/12/2018 3:24 PM COUNSELING PSYCHOLOGIST) athologist Signature Acetaminophen, <5 <30 mcg/mL 01/12/2018 [facility] S 3:52 PM [facility] Specimen Anatomical Collection Method Collection Time Receive d Time (Source) Location / / Volume Laterality Blood 01/12/2018 3:24 PM 8 3:27 COUNSELING PSYCHOLOGIST PM COUNSELING PSYCHOLOGIST Garrett Saeed P.A.-C. LAB BLOOD ADD-ON Performing Organization Address City/State/ZIP Code Phon e Number [facility] [address] [facility] [place] [address] [place] [facility] S-TSH (Thyroid-Stimulating Hormone - Sensitive) (01/12/2018 3:24 PM COUNSELING PSYCHOLOGIST) athologist Signature TSH, Sensitive 0.7 0.3 - 4.2 01/12/2018 [facility] mIU/L 4:00 PM [facility] Comment: Biotin has been identified by the siva riggs as a potential interfering substance. ??Higher concentr ations of biotin may be found in multivitamins, hair/nail supple ments, and workout supplements. ??If the result does not ma [facility] clinical observations, repeat testing after patient refrains fr om the use of supplements for at least 12 hours. Specimen Anatomical Collection Method Collection Time Receive d Time (Source) Location / / Volume Laterality Blood 01/12/2018 3:24 PM 8 3:27 COUNSELING PSYCHOLOGIST PM COUNSELING PSYCHOLOGIST Garrett BandaCJaciel LAB BLOOD ADD-ON Performing Organization Address City/State/ZIP Code Phon e Number [facility] [address] [facility] [place] [address] [place] [facility] (ABNORMAL) Hepatic Function Panel (01/12/2018 3:24 PM COUNSELING PSYCHOLOGIST) [facility] gist Method Time Signature Bilirubin, Total, S <0.2 <=1.2 01/12/2018 [facility] mg/dL 3:52 PM [facility] Bilirubin, Direct, S <0.2 0.0 - 0.3 01/12/2018 [facility] mg/dL 3:52 PM [facility] Aspartate 19 8 - 48 01/12/2018 [facility] Aminotransferase U/L 3:51 PM [facility] Alanine 8 7 - 55 01/12/2018 [facility] Aminotransferase U/L 3:51 PM [facility] Alkaline 95 45 - 115 01/12/2018 [facility] Phosphatase, S U/L 3:51 PM [facility] Albumin, S 4.1 3.5 - 5.0 01/12/2018 [facility] [facility] g/dL 3:51 PM [facility] Protein, Total, S 6.1 (L) 6.3 - 7.9 01/12/2018 [facility] g/dL 3:51 PM [facility] Specimen Anatomical Collection Method Collection Time Receive d Time (Source) Location / / Volume Laterality Blood 01/12/2018 3:24 PM 8 3:27 COUNSELING PSYCHOLOGIST PM COUNSELING PSYCHOLOGIST Garrett Saeed P.A.-C. LAB BLOOD ADD-ON Performing Organization Address City/State/ZIP Code Phon e Number [facility] [address] [place] [address] [facility] BMP (Basic Metabolic Panel) (01/12/2018 3:24 PM COUNSELING PSYCHOLOGIST) P athologist Signature Potassium, P 4.5 3.6 - 5.2 01/12/2018 [facility] mmol/L 3:52 PM [facility] Sodium, P 139 135 - 145 01/12/2018 [facility] mmol/L 3:52 PM [facility] Chloride, P 102 98 - 107 01/12/2018 [facility] mmol/L 3:52 PM [facility] Bicarbonate, P 29 22 - 29 01/12/2018 [facility] mmol/L 3:52 PM [facility] Anion Gap, P 8 7 - 15 01/12/2018 [facility] 3:52 PM [facility] BUN (Blood Urea 15 8 - 24 01/12/2018 [facility] Nitrogen), P mg/dL 3:52 PM [facility] Creatinine 0.85 0.74 - 01/12/2018 [facility] 1.35 mg/dL 3:52 PM [facility] eGFR-Black/Afri >90 >=60 01/12/2018 [facility] can Martiniquais mL/min/BSA 3:52 PM [facility] Comment: ----ADDITIONAL INFORMATION---- Estimated GFR calculated using the 2009 CKD_EPI creatinine equation. eGFR Non-Black/ >90 >=60 mL/min/BSA 01/12/2018 3:52 PM [facility] Martiniquais [facility] Comment: ----ADDITIONAL INFORMATION---- Estimated GFR calculated using the 2009 CKD_EPI creatinine equation. Calcium, Total, P 9.0 8.9 - 10.1 mg/dL 01/12/2018 3 :52 PM [facility] Glucose, P 97 70 - 140 mg/dL 01/12/2018 3:52 PM COUNSELING PSYCHOLOGIST [facility] Specimen Anatomical Collection Method Collection Time Receive d Time (Source) Location / / Volume Laterality Blood 01/12/2018 3:24 PM 8 3:27 COUNSELING PSYCHOLOGIST PM COUNSELING PSYCHOLOGIST Garrett Saeed P.A.-C. LAB BLOOD ADD-ON Performing Organization Address City/State/ZIP Code Phon e Number [place] [id number] [place] [address] [facility] (ABNORMAL) CBC with Differential (01/12/2018 3:24 PM COUNSELING PSYCHOLOGIST) [facility] Method Time Signature Hemoglobin 14.6 13.2 - 01/12/2018 [facility] 16.6 g/dL 3:35 PM [facility] Hematocrit 43.7 38.3 - 01/12/2018 [facility] 48.6 % 3:35 PM [facility] Erythrocytes 4.82 4.35 - 01/12/2018 [facility] 5.65 3:35 PM [facility] x10(12)/L [facility] MCV 90.7 78.2 - 01/12/2018 [facility] 97.9 fL 3:35 PM [facility] RBC Distrib Width 12.1 11.8 - 01/12/2018 [facility] 14.5 % 3:35 PM [facility] Platelet Count 236 135 - 317 01/12/2018 [facility] x10(9)/L 3:35 PM [facility] Leukocytes 10.3 (H) 3.4 - 9.6 01/12/2018 [facility] x10(9)/L 3:35 PM [facility] Neutrophils 7.88 (H) 1.56 - 01/12/2018 [facility] 6.45 3:35 PM [facility] x10(9)/L [facility] [place] [facility] Lymphocytes 1.58 0.95 - 01/12/2018 [facility] 3.07 3:35 PM COUNSELING PSYCHOLOGIST [facility] x10(9)/L [facility] [place] [facility] Monocytes 0.66 0.26 - 01/12/2018 [facility] 0.81 3:35 PM [facility] x10(9)/L [facility] [place] [facility] Eosinophils 0.13 0.03 - 01/12/2018 [facility] 0.48 3:35 PM [facility] x10(9)/L [facility] [place] [facility] Basophils 0.05 0.01 - 01/12/2018 [facility] 0.08 3:35 PM [facility] x10(9)/L [facility] Specimen Anatomical Collection Method Collection Time Receive d Time (Source) Location / / Volume Laterality Blood 01/12/2018 3:24 PM 8 3:27 COUNSELING PSYCHOLOGIST PM COUNSELING PSYCHOLOGIST Garrett Saeed P.A.-C. LAB BLOOD ADD-ON Performing Organization Address City/State/ZIP Code Phon e Number [facility] [address] [place] [address] [facility] documented in this encounter Visit Diagnoses Diagnosis Abuse Substance Polysubstance (HCC) - Pr imary documented in this encounter Administered Medications Inactive Administered Medications - up to 3 most recent administrations Medication Order MAR Action Action Date Dose Rate Site LORazepam tablet 2 mg (for_ATIVAN) Given 01/12/2018 8:05 PM COUNSELING PSYCHOLOGIST 2 mg 2 mg, oral, Once, On Wed01/12/18 at 1959, For 1 dose ondansetron ODT disintegrating tablet 4 mg Given 01/12/2018 8:06 PM COUNSELING PSYCHOLOGIST 4 mg (for_ZOFRAN-ODT) 4 mg, sublingual, Once, On Wed01/12/18 at 1907, For 1 dose documented in this encounter Active and Recently Administered Medications Times are shown in COUNSELING PSYCHOLOGIST. Scheduled Medication Order 01/10/2018 01/11/2018 01/12/2018 LORazepam tablet 2 mg (for_ATIVAN) (COMPLETED) 2004 (Given - Provider: Tracey Rao R.N.) 2 mg, oral, Once, Wed01/12/18 at 1959, For 1 dose ondansetron ODT disintegrating tablet 4 mg (for_ZOFRAN-ODT) (COM PLETED) 2005 (Given - Provider: Tracey Rao R.N.) 4 mg, sublingual, Once, Wed01/12/18 at 1907, For 1 dose documented in this encounter Care Teams Student Driving Instructor Relationship Specialty Start Date End Date Julian Santana M.D. PCP - General 05/13/17 [address] [place] [id number] documented as of this encounter
--- OUTSIDE RECORDS SUMMARY | 2022-09-25 11:02 | XMS_ITS | Encounter Summary ---
:1990 Author Organization [facility] Address [address] [place] [address] Care Team Providers Name Role Phone Unavailable Primary Care Provider Unavailable Encounter Details Date Type Department Care Team Description 01/19/2016 Hospital Encounter HX [facility] ED Grover Atkins M.D. [address] [place], [place] [phone] (Wo rk) Social History [...] Sign Reading Time Taken Comments Blood Pressure 117/63 01/19/2016 10:05 PM IMMUNOLOGY TEACHER Pulse 100 01/19/2016 10:05 PM IMMUNOLOGY TEACHER Temperature - - Respiratory Rate 18 01/19/2016 10:05 PM IMMUNOLOGY TEACHER Oxygen Saturation - - Inhaled Oxygen Concentration - - Weight - - Height 180.3 cm (5' 11) 01/19/2016 10:05 PM IMMUNOLOGY TEACHER Body Mass Index - - documented in this encounter Discharge Summaries Yamel Dave R.N. - 01/19/2016 10:09 PM CST ED Discharge Instructions [facility] [address] [place] [address] Name: JOHN GAVIN Date of : 1990 12:00 AM Visit Date: 01/19/2016 8:[address] [facility] Number: [id number] Address: [address] [facility] [address] Primary Care Provider: REGGIE RIVAS MD IMPORTANT: [facility] in [place] would like to thank you for allowing us to assist you with your healthcare needs. The following includes patient education materials and information regarding your injury/illness. Diagnosis: Infection Upper Respiratory (URI); Otitis Media (OM) Acute Gonsalo Follow-Up Instructions: With: Address: When: REGGIE RIVAS [address] [place] [address] Business (1) Within As Needed Your Upcoming Appointments: Date [...] if you dont have one. Go to [email or web address] and click on Create Your Account. Then, follow the directions to complete the online form. Youll be asked for your [facility] number which you can find at the top of this document. ED Tests and Procedures: Order Status Discharge Prescriptions & Home Medications: Medication/Strength Dose Route Frequency Indications/Special Instructions/Comments/Notes amoxicillin (amoxicillin 500 mg oral tablet) 500 mg Oral three times a day for 10 Days *cyclobenzaprine (cyclobenzaprine 5 mg oral tablet) 5 mg Oral three times a day as needed for Musclespasm *methylPREDNISolone (methylPREDNISolone 4 mg oral tablet) See Instructions Follow package instructions *OXcarbazepine (OXcarbazepine 600 mg oral tablet) 300 mg Oral two times a day *traZODone (traZODone 100 mg oral tablet) 100 mg Oral once a day (at bedtime) *omeprazole (omeprazole 20 mg oral delayed release tablet) 20 mg Oral once a day *ibuprofen (Advil Liquigel 200 mg oral capsule) See [...] arrange a ride home with a responsible libertarian. I, JOHN GAVIN , or responsible libertarian have received this information and my questions have been answered. I have discussed any challenges I see with this plan with the nurse or physician. Patient Signature or Responsible Constitution Party/Relationship Date Time Provider Signature Date Time [...] arrange a ride home with a responsible libertarian. I, JOHN GAVIN , or responsible libertarian have received this information and my questions have been answered. I have discussed any challenges I see with this plan with the nurse or physician. Patient Signature or Responsible Constitution Party/Relationship Date Time Provider Signature Date Time [facility]: [id number] NOLOGY TEACHER Yamel Dave R.N. - 01/19/2016 10:09 PM CST ED Depart Summary [facility] Emergency Department Clinical Discharge Summary PERSON INFORMATION Name JOHN GAVIN Age 25 Years 1990 12:00 AM Sex Male Language Burkinan PCP REGGIE RIVAS MD Marital Status Single Visit Id Visit Reason Chest pain - Pleuritic; Earache; EAR INFECTION Specialty Enc Type Emergency Med Service Emergency Medicine Referred by Track Group [facility] ED Discharge 01/19/2016 10:05 PM Tracking Id [id number] Checkout 01/19/2016 10:05 PM Checkin 01/19/2016 8:32 PM Acuity 4 -Less Urgent Dispo Type * Discharged to Home or Self Care Arrival 01/19/2016 8:32 PM Reg Status Complete LOS 000 01:33 Address: [address] [facility] [address] Comment: PROVIDER INFORMATION Provider Role Provider Contact Time GROVER ATKINS MD ED Provider 01/19/16 21:26 YAMEL DAVE RN ED Nurse 01/19/16 21:43 SPENCER ISAACS ED Bobbin Fixer 01/19/16 21:45 DIAGNOSIS Infection Upper Respiratory (URI); Otitis Media (OM) Acute Gonsalo Comment: PATIENT EDUCATION INFORMATION Instructions: Follow up: With: Address: When: REGGIE RIVAS [address] [place] [address] [facility] [employer] [facility] (3) Within As Needed Source: [facility] Document Id: [id number] NOLOGY TEACHER documented in this encounter ED Notes Yamel Dave R.N. - 01/19/2016 10:05 PM CST ED Disposition Summary ED Disposition Summary Entered On: 01/19/2016 22:07 IMMUNOLOGY TEACHER Performed On: 01/19/2016 22:05 IMMUNOLOGY TEACHER by YAMEL DAVE RN ED Disposition Summary Present in Room During Exam/Procedure : Daughter, Significant other Mode of Discharge : Ambulatory Transportation : Private vehicle Printed Discharge Instructions Given to Patient : Yes Patient Status at Discharge from ED : Unchanged YAMEL DAVE RN - 01/19/2016 22:07 IMMUNOLOGY TEACHER Source: [facility] Document Id: [id number] IMMUNOLOGY TEACHER!7 NOLOGY TEACHER Yamel Dave R.N. - 01/19/2016 10:05 PM CST ED Pain Assessment ED Pain Assessment Entered On: 01/19/2016 22:08 IMMUNOLOGY TEACHER Performed On: 01/19/2016 22:05 IMMUNOLOGY TEACHER by YAMEL DAVE RN Pain Assessment Pain Symptoms : Yes YAMEL DAVE RN - 01/19/2016 22:08 IMMUNOLOGY TEACHER Pain Scale Pain Scale Verbal 0-10 : Open YAMEL DAVE RN - 01/19/2016 22:08 IMMUNOLOGY TEACHER Pain Pain Assessment Grid Pain 1 Pain 2 Pain 3 Location : Ear Head Other: Lungs Intensity : 5 5 5 YAMEL DAVE RN - 01/19/2016 22:08 IMMUNOLOGY TEACHER YAMEL DAVE RN - 01/19/2016 22:08 IMMUNOLOGY TEACHER YAMEL DAVE RN- 01/19/2016 22:08 IMMUNOLOGY TEACHER Source: [facility] Document Id: [id number] IMMUNOLOGY TEACHER!16 NOLOGY TEACHER Grover Atkins M.D. - 01/19/2016 9:51 PM CST Earache, Chest pain - Pleuritic Patient: JOHN GAVIN Age: 25 years Sex: Male : 1990 Author: GROVER ATKINS MD Attachments: None Associated Diagnosis: Infection Upper Respiratory (URI); Otitis Media (OM) Acute Gonsalo Basic Information Time seen: Date & time 01/19/2016 21:51:00, Spencer Mederos, am scribing for and in the presence of Dr. Grover Atkins M.D. History source: Patient. Arrival mode: Private vehicle. History limitation: None. Additional information: Chief Complaint from Nursing Triage Note : Chief Complaint Description 01/19/2016 21:32 IMMUNOLOGY TEACHER Chief Complaint Description Hurts to breath. Ears hurt. Can hardly hear. Has bad headache. Cough. Fever off and on. Took ibuprofen AUDIOVISUAL AIDS TECHNICIAN. . History of Present Illness The patient presents with ear pain. The onset was 2 days ago. Therapy today: over the counter medications including Ibuprofen. Associated symptoms: fever, cough and Dyspnea. 25 year old male presents to the Emergency Department for evaluation of dyspnea and ear pain that started 2-3 days ago. He rates both of these pains 5/10 in severity and tried treating them with ibuprofen prior to arrival. He also notes intermittent fever, decreased hearing, cough, and a headache. Review of Systems Constitutional symptoms: No fever or no chills. Skin symptoms: No rash. Eye symptoms: Vision unchanged. ENMT symptoms: Negative except as documented in HPI. Respiratory symptoms: Negative except as documented in HPI. Cardiovascular symptoms: No palpitations or no peripheral edema. Gastrointestinal symptoms: No abdominal pain, no nausea, no vomiting, no diarrhea or no constipation. Genitourinary symptoms: No dysuria. Musculoskeletal symptoms: No Muscle pain or no Joint pain. Neurologic symptoms: No headache or no dizziness. Endocrine symptoms: No polyuria, no polydipsia or no polyphagia. Additional review of systems information: All other systems reviewed and otherwise negative. Health Status Allergies: Allergic Reactions (Selected) Moderate Azithromycin- Hives. Nonallergic Reactions (Selected) Severity Not Documented Doxycycline- Nausea and vomiting.. Medications: (Selected) Prescriptions Prescribed OXcarbazepine 600 [...] per mom. Past Medical/ Family/ Social History Medical history: Active Bipolar I Disorder, Most Recent Episode (Or Current) Unspecified (296.7): Onset on 01/07/2006 at 15 years. Comments: - Bipolar I disorder, most recent episode (or current) unspecified Constipation, Unspecified (564.00): Onset on 03/12/2004 at 13 years. Comments: - Unspecified constipation Unspecified Sleep Disturbance (780.50): Onset on 07/04/2003 at 12 years. Comments: - Sleep disturbance, unspecified Tic Disorder, Unspecified (307.20): Onset on 07/20/2002 at 11 years. Comments: - Tic disorder, unspecified Headache (784.0): Onset on 06/08/2001 at 10 years. Comments: - Headache Attention Deficit Disorder of Childhood with Hyperactivity (314.01): Onset on 06/08/2001 at 10 years. Comments: - Attention deficit disorder with hyperactivity Abuse Tobacco Smoking NOS (Z72.0). Surgical history: Cystourethroscopy on 06/22/2003 at 12 [...] Denies, Tobacco use: Regularly, Drug use: Denies. Physical Examination General: Alert and no acute distress. Vital Signs.Skin: Warm, dry and intact. Head: Normocephalic and atraumatic. Neck: Supple and no tenderness. Eye: Pupils are equal, round and reactive to light and extraocular movements are intact. Ears, nose, mouth and throat: Oral mucosa moist, no pharyngeal erythema or exudate and Tympanic membranes are injected bilaterally. . Cardiovascular: Regular rate and rhythm, No murmur and No edema. Respiratory: Lungs are clear to auscultation, breath sounds are equal and Retractions: None. Chest wall: No tenderness. Back: Nontender and Normal range of motion. Musculoskeletal: Normal ROM. normal strength. no tenderness. no swelling. Gastrointestinal: Soft, Nontender, Non distended, Normal bowel sounds and No organomegaly. Neurological: Alert and oriented to person, place, time, and situation, No focal neurological deficit observed, CN II-XII intact and normal sensory observed. Lymphatics: No lymphadenopathy. Psychiatric: Cooperative and appropriate mood & affect. Medical Decision Making OrdersLaunch Orders Pharmacy: Augmentin 875 mg-125 mg oral tablet (Order Processing): 1 tab(s), PO, Once. Impression and Plan Diagnosis Infection Upper Respiratory (URI) (Discharge, Emergency medicine, Medical) Otitis Media (OM) Acute Gonsalo (Discharge, Emergency medicine, Medical) Plan Condition: Stable. Disposition: Discharged: to home. Prescriptions: Prescription Social Work Specialist Pharmacy: amoxicillin 500 mg oral tablet (Prescribe): 500 mg, 1 tab(s), PO, 3xDay, for 10 day(s), 30 tab(s), 0Refill(s). Follow up with: REGGIE Reyes As Needed. Counseled: Patient. Electronically Signed By: GROVER ATKINS MD On: 01/19/2016 10:00 PM Modified by and Electronically Signed by: GROVER ATKINS MD On: 01/19/2016 10:00 PM Source: [facility] Document Id: [id number]} NOLOGY TEACHER Yamel Dave R.N. - 01/19/2016 9:32 PM CST ED Primary Assessment Document Has Been Updated ED Primary Assessment Entered On: 01/19/2016 21:38 IMMUNOLOGY TEACHER Performed On: 01/19/2016 21:32 IMMUNOLOGY TEACHER by YAMEL DAVE RN Reason For Visit (As Of: 01/19/2016 21:41:23 IMMUNOLOGY TEACHER) Problems(Active) Abuse Tobacco Smoking NOS (ICD-10-CM :Z72.0 ) Name of Problem: Abuse Tobacco Smoking NOS ; Recorder:DEVENDRA PINEDO; Confirmation: Confirmed ; Classification: Medical ; Code: Z72.0 ; Contributor System: IPextremeChart ; Last Updated: 10/07/2015 7:19 IMMUNOLOGY TEACHER ; Life Cycle Date: 10/07/2015 ; Life Cycle Status: Active ; Responsible Provider: DEVENDRA PINEDO; Vocabulary: ICD-10-CM Attention Deficit Disorder of Childhood with Hyperactivity (ICD-9-CM :314.01 ) Name of Problem: Attention Deficit Disorder of Childhood with Hyperactivity ; Onset Date: 06/08/2001 ; Confirmation: Confirmed ; Classification: Medical ; Code: 314.01 ; Contributor System: IPextremeChart ; Last Updated: 10/07/2015 7:12 IMMUNOLOGY TEACHER ; Life Cycle Status: Active ; Vocabulary: ICD-9-CM ; Comments: - Attention deficit disorder with hyperactivity Bipolar I Disorder, Most Recent Episode (Or Current) Unspecified (ICD-9-CM :296.7 ) Name of Problem:Bipolar I Disorder, Most Recent Episode (Or Current) Unspecified ; Onset Date: 01/07/2006 ; Confirmation: Confirmed ; Classification: Medical ; Code: 296.7 ; Contributor System: PowerChart ; Last Updated: 10/07/2015 7:11 IMMUNOLOGY TEACHER ; Life Cycle Status: Active ; Vocabulary: ICD-9-CM ; Comments: - Bipolar I disorder, most recent episode (or current) unspecified Constipation, Unspecified (ICD-9-CM :564.00 ) Name of Problem: Constipation, Unspecified ; Onset Date: 03/12/2004 ; Confirmation: Confirmed ; Classification: Medical ; Code: 564.00 ; Contributor System: IPextremeChart ; Last Updated: 10/07/2015 7:11 IMMUNOLOGY TEACHER ; Life Cycle Status: Active ; Vocabulary: ICD-9-CM ; Comments: - Unspecified constipation Headache (ICD-9-CM :784.0 ) Name of Problem: Headache ; Onset Date: 06/08/2001 ; Confirmation: Confirmed ; Classification: Medical ; Code: 784.0 ; Contributor System: PowerChart ; Last Updated: 10/07/2015 7:11 IMMUNOLOGY TEACHER ; Life Cycle Status: Active ; Vocabulary: ICD-9-CM ; Comments: - Headache Tic Disorder, Unspecified (ICD-9-CM :307.20 ) Name of Problem: Tic Disorder, Unspecified ; Onset Date: 07/20/2002 ; Confirmation: Confirmed ; Classification: Medical ; Code: 307.20 ; Contributor System: PowerChart ; Last Updated: 10/07/2015 7:11 IMMUNOLOGY TEACHER ; Life Cycle Status: Active ; Vocabulary: ICD-9-CM ; Comments: - Tic disorder, unspecified Unspecified Sleep Disturbance (ICD-9-CM :780.50 ) Name of Problem: Unspecified Sleep Disturbance ; Onset Date: 07/04/2003 ; Confirmation: Confirmed ; Classification: Medical ; Code: 780.50 ; Contributor System: PowerChart ; Last Updated: 10/07/2015 7:11 IMMUNOLOGY TEACHER ; Life Cycle Status: Active ; Vocabulary: ICD-9-CM ; Comments: - Sleep disturbance, unspecified Diagnoses(Active) Chest pain - Pleuritic Date: 01/19/2016 ; Diagnosis Type: Reason For Visit ; Confirmation: Complaintof ; Clinical Dx: Chest pain - Pleuritic ; Classification: Medical ; Clinical Service: Emergency medicine ; Code: PNED ; Probability: 0 ; Diagnosis Code: [id number] Earache Date: 01/19/2016 ; Diagnosis Type: Reason For Visit ; Confirmation: Complaint of ; Clinical Dx: Earache ; Classification: Medical ; Clinical Service: Emergency medicine ; Code: PNED ; Probability: 0 ; Diagnosis Code: [id number] Triage Chief Complaint Description : Hurts to breath. Ears hurt. Can hardly hear. Has bad headache. Cough. Fever off and on. Took ibuprofen AUDIOVISUAL AIDS TECHNICIAN. Information Given By : Patient Mode of Arrival ED : Private vehicle, Ambulatory Track : Medical Languages : Burkinan Patient Informed of Triage Location : Emergency department Vital Signs Assessed : Yes GCS Assessed : Yes Treatments Prior to Arrival : Acetaminophen, Ibuprofen Is Patient Female and 13-50 no hysterectomy : No DAVEYAMEL Iman RN - 01/19/2016 21:32 IMMUNOLOGY TEACHER Vital Signs Temperature Core : 38 DegC(Converted to: 100.4 DegF) Peripheral Pulse Rate : 105 /min (HI) Respiratory Rate : 18 /min Systolic Blood Pressure : 123 mmHg Diastolic Blood Pressure : 73 mmHg NIBP Mean : 90 mmHg SpO2 : 99 % Height : 180.34 cm(Converted to: 5 ft 11 inch(es)) Height Source : Stated Estimated Weight : 75 kg Estimated Weight Conversion to Pounds : 165 lb DAVE YAMLE M RN - 01/19/2016 21:32 IMMUNOLOGY TEACHER [place] Coma Eye Opening Response [place] : Spontaneously Best Verbal Response [place] : Oriented Best Motor Response [place] : Obeys simple commands Arabella Coma Score : 15 YAMEL DAVE Iman RN - 01/19/2016 21:32 IMMUNOLOGY TEACHER Pain Assessment Pain Symptoms : Yes OLIVA YAMELMEHRDAD Valerio RN 01/19/2016 21:32 IMMUNOLOGY TEACHER Pain Scale Pain Scale Verbal 0-10 : Open OLIVA YAMEL Iman RN 01/19/2016 21:32 IMMUNOLOGY TEACHER Pain Pain Assessment Grid Pain 1 Pain 2 Pain 3 Location : Ear Head Other: Lungs Laterality : Bilateral Intensity : 5 5 5 YAMEL DAVE RN 01/19/2016 21:32 IMMUNOLOGY TEACHER YAMEL DAVE RN 01/19/2016 21:32 IMMUNOLOGY TEACHER OLIVA YAMELMEHRDAD Valerio RN01/19/2016 21:32 IMMUNOLOGY TEACHER BREEZY DCP GENERIC CODE Tracking Group : [facility] ED Tracking Acuity : 4 -Less Urgent OLIVA YAMEL M RN 01/19/2016 21:32 IMMUNOLOGY TEACHER Respiratory Airway : Patent Respirations : Unlabored Respiratory Pattern : Regular Oxygen Therapy : Room air Respiratory Detailed Assessment : Yes YAMEL DAVE RN - 01/19/2016 21:40 IMMUNOLOGY TEACHER Resp Detailed Respiratory Patient Stated Symptoms : None Cough : Productive Sputum Color : Brown, Yellow YAMEL DAVE RN - 01/19/2016 21:40 IMMUNOLOGY TEACHER Breath Sounds Assessment Grid DELORIS : Diminished RUL : Diminished RML : Diminished LLL : Diminished RLL : Diminished YAMEL DAVE RN - 01/19/2016 21:40 IMMUNOLOGY TEACHER Cardiovascular Heart Rhythm : Regular Skin Color : Normal for ethnicity Skin Description : Normal Skin Temperature : Warm YAMEL DAVE RN - 01/19/2016 21:40 IMMUNOLOGY TEACHER Neurological Last Well Time Known : Not applicable Level of Consciousness : Alert Orientation : Oriented x 3 Characteristics of Speech : Appropriate for age YAMEL DAVE RN - 01/19/2016 21:40 IMMUNOLOGY TEACHER ED Psychosocial Affect/Behavior : Calm, Cooperative, Appropriate Domestic Abuse Concerns : None Behavioral Health Screen/Safety Assmt : No YAMEL DAVE RN - 01/19/2016 21:32 IMMUNOLOGY TEACHER Gastrointestinal Nutrition ED : Adequate YAMEL DAVE RN - 01/19/2016 21:40 IMMUNOLOGY TEACHER Musculoskeletal Fall Prevention Education Provided : YAMEL VALIENTE RN - 01/19/2016 21:40 IMMUNOLOGY TEACHER Social Habits Exposure to Tobacco Smoke : Patient smokes Smoking Status : Current every day smoker Tobacco 2A : Yes Tobacco Use/Currently Using : Yes Tobacco Use/Last 30 Days : Yes Tobacco Use/Last 12 months : Yes Type : Cigarettes: 20-30 per day Tobacco Use/Advised to Quit : Yes YAMEL DAVE RN - 01/19/2016 21:32 IMMUNOLOGY TEACHER Alcohol Use Grid Alcohol Use : No YAMEL DAVE RN - 01/19/2016 21:32 IMMUNOLOGY TEACHER Recreational Drug Use Grid Drug Use : None YAMEL DAVE RN - 01/19/2016 21:32 IMMUNOLOGY TEACHER Source: [facility] Document Id: [id number] IMMUNOLOGY TEACHER!31 NOLOGY TEACHER documented in this encounter Miscellaneous Notes Miscellaneous - Yamel Dave R.N. - 01/19/2016 10:05 PM CST Discharge Vital Signs Form Discharge Vital Signs Form Entered On: 01/19/2016 22:08 IMMUNOLOGY TEACHER Performed On: 01/19/2016 22:05 IMMUNOLOGY TEACHER by YAMEL DAVE RN Vital Signs Peripheral Pulse Rate : 100 /min Respiratory Rate : 18 /min Systolic Blood Pressure : 117 mmHg Diastolic Blood Pressure : 63 mmHg NIBP Mean : 81 mmHg SpO2 : 98 % Oxygen Therapy : Room air Height : 180.34 cm(Converted to: 5 ft 11 inch(es)) YAMEL DAVE RN - 01/19/2016 22:07 IMMUNOLOGY TEACHER [facility] Document Id: [id number] IMMUNOLOGY TEACHER!10 NOLOGY TEACHER Miscellaneous - Yamel Dave R.N. - 01/19/2016 10:05 PM CST Valuables/Belongings Valuables/Belongings Entered On: 01/19/2016 22:08 IMMUNOLOGY TEACHER Performed On: 01/19/2016 22:05 IMMUNOLOGY TEACHER by YAMEL DAVE RN Valuables/Belongings Valuables/Belongings Grid Valuables with Patient Clothes, Patient Valuables : Jacket, Pants, Shirt, Shoes YAMEL DAVE RN - 01/19/2016 22:08 IMMUNOLOGY TEACHER Source: [email or web address] Document Id: [id number] IMMUNOLOGY TEACHER!5 NOLOGY TEACHER Miscellaneous - Conversion, Historical Provider Ser - 01/19/2016 10:05 PM IMMUNOLOGY TEACHER Coding Summary-Paper Based CODING DATE: 01/27/2016 FINAL [facility] STATUS: * Discharged to Home or Self Care PAYOR: Medicaid ADMIT DX: H92.09 Otalgia, unspecified ear REASON FOR VISIT DX: H92.09 Otalgia, unspecified ear FINAL DX: PRINCIPAL: J06.9 Acute upper respiratory infection, unspecified SECONDARY: H66.93 Otitis media, unspecified, bilateral Z88.1 Allergy status to other antibiotic agents status F17.210 Nicotine dependence, cigarettes, uncomplicated PROCEDURES DOCTOR NAME DATE NOTE: The code number assigned matches the documented diagnosis and / or procedure in the patient's chart. However, the narrative phrase printed from the coding software may appear abbreviated, or result in slightly different terminology. Coded By: GENEVIEVE WATERMAN Date Saved: 01/27/2016 10:25 pm Source: [email or web address] Document Id: [id number] Miscellaneous - Yamel Dave R.N. - 01/19/2016 8:32 PM CST Facility Charge Ticket 2.0 11.0 DX Facility Charge Ticket 2.0 11.0 DX Entered On: 01/19/2016 22:09 IMMUNOLOGY TEACHER Performed On: 01/19/2016 20:32 IMMUNOLOGY TEACHER by YAMEL DAVE RN Facility Charge Ticket 2.0 11.0 DX ED Other Charges : Standard ED Encounter TVL Level Translated RTF : Earache, Chest pain - Pleuritic TVL:4 TVL Level for Facility Charge Ticket : Level 4 Arrival Mode Calc : 257 Mode of Arrival ED : Private vehicle, Ambulatory [place]x Mode of Arrival Interpreted : Standard [place]x Process Management : None Lynx Order Management : None 30 Minutes Critical Care : No Nursing Notes RTF : Nursing Notes ED Primary Assessment,01/19/16 21:32,YAMEL DAVE RN ED Primary Assessment,01/19/16 21:32,YAMEL DAVE LAST MODEL DEPARTMENT SUPERVISOR Pain Assessment,01/19/16 22:05,YAMEL DAVE RN [place] Nursing Assessment : Triage and 1-2 nursing assessments [place]x Disposition : Discharge Disposition RTF : discharge [place] Total Points with Diagnosis Control : 7 Lynx Visit Level : 03775 Level 3 Treatments Prior to Arrival : Acetaminophen, Ibuprofen YAMEL DAVE RN - 01/19/2016 22:09 IMMUNOLOGY TEACHER Source: [email or web address] Document Id: [id number] IMMUNOLOGY TEACHER!18 NOLOGY TEACHER documented in this encounter Plan of Treatment Not on filedocumented as of this encounter Visit Diagnoses Not on filedocumented in this encounter
--- OUTSIDE RECORDS SUMMARY | 2022-09-25 11:02 | XMS_ITS | Encounter Summary ---
:1990 Author Organization [facility] Address [address] [place] [address] Care Team Providers Name Role Phone Unavailable Primary Care Provider Unavailable Encounter Details Date Type Department Care Team Description 07/04/2016 Hospital Encounter HX [facility] ED Linda Delgado M.D. [address] [place], [place] [phone] (Wo rk) Social History [...] Sign Reading Time Taken Comments Blood Pressure 131/64 07/04/2016 4:42 PM CDT Pulse 100 07/04/2016 4:42 PM CDT Temperature - - Respiratory Rate 16 07/04/2016 4:42 PM CDT Oxygen Saturation - - Inhaled Oxygen Concentration - - Weight - - Height 175.3 cm (5' 9) 07/04/2016 4:42 PM CDT Body Mass Index - - documented in this encounter Discharge Summaries Tracey Rao R.N. - 07/04/2016 4:45 PM CDT ED Discharge Instructions [facility] [address] [place] [address]. [place] [address] Name: JOHN GAVIN Date of : 1990 12:00 AM Visit Date: 07/04/2016 1:41 PM [facility] Number: [id number] Address: [address] [facility] [address] Primary Care Provider: REGGIE RIVAS MD IMPORTANT: [facility] in [place] would like to thank you for allowing us to assist you with your healthcare needs. The following includes patient education materials and information regarding your injury/illness. Diagnosis: Hematuria NOS; Pain Testicular Follow-Up Instructions: With: Address: When: REGGIE RIVAS [address] [facility] [place] [address] Business (1) Within As Needed Your Upcoming Appointments: Date Time Location Provider No Appointments found Patient Education Materials: Testicular Pain, Unclear Cause You have had pain in one or both testicles. Based on your exam today, the exact cause of your pain is not certain. But your condition does not appear to be dangerous. Testicles are very sensitive. Evena small injury can cause quite a bit of pain. Other possible causes of testicular pain include kidney stones, mumps, hernia, infection, and a twisted testicle. Certain tests may be done to rule out an underlying problem causing the pain. Nothing conclusive wasfound today. Most likely, the pain will go away on its own. If it doesnt, you may need more tests. Home Care Medications: Medications may be prescribed to help relieve pain and swelling. This may be an [id number] pain reliever or prescription pain medication. Take all medications as directed. General Care: ?? To relieve pain and swelling, apply a cold compress (a clean cloth soaked in ice water) for 10 minutes at a time. Continue this on and off for 1 to 2 days. ?? When lying down, place a small rolled towel under your scrotum. When moving around, wear a jockstrap (athletic supporter). These will help support and protect your testicles. ?? If walking causes pain, walk as little as possible until you feel better. ?? Avoid strenuous activity until you feel better. ?? Do not have sex until you feel better. ?? If you have severe pain in the testicle, seek care right away. Delay may lead to permanent loss of the testicles function. Follow Up as advised by the doctor or our staff. Get Prompt Medical Attention if you have: ?? Fever of 100.4?F (38?C) or higher ?? Worsening of the pain or severe pain ?? Swelling of the testicle or scrotum ?? A lump in the scrotum ?? Warm and red scrotum (signs of infection) ?? Nausea and vomiting ?? Abdominal pain or swelling ?? Trouble urinating ?? Numbness or weakness in the leg ?? Shrinking of the testicle ?? Blood in your urine ?? [phone] [facility], [address] [place] [address]. All rights reserved. This information is not intended as a substitute for professional medical care. Always follow your healthcare professional's instructions. Blood In The Urine Blood in the urine (hematuria) has many possible causes. If it occurs after an injury (such as a car accident or fall), it is most often a sign of bruising to the kidney or bladder. Common medical causes of blood in the urine include urinary tract infection, kidney stone, inflammation, tumors, or certain other diseases of the kidney or bladder. Menstruation can cause blood to appear in the urine sample, although it is not coming from the urinary tract. If only a trace amount of blood is present, it will show up on the urine test, even though the urinemay be yellow and not pink or red. This may occur with any of the above conditions, as well as heavyexercise or high fever. In this case, your doctor may want to repeat the urine test on another day. This will show if the blood is still present. If so, then other tests can be done to find out the cause. Home Care: If your urine does not appear bloody (pink, brown or red) then you do not need to restrict your activity in any way. If you can see blood in your urine, rest and avoid heavy exertion until your next exam. Do not use aspirin or anti-inflammatory medicine like ibuprofen (Motrin, Advil) or naproxen (Naprosyn, Aleve). These thin the blood and may increase bleeding. Follow Up with your doctor or as advised by our staff. If you were injured and had blood in your urine, you should have a repeat urine test in 1-2 days. Contact your doctor or return to this facility for this test. [NOTE: A radiologist will review any X-rays that were taken. We will notify you of any new findings that may affect your care.] Get Prompt Medical Attention if any of the following occur: ?? Bright red blood or blood clots in the urine (if a new symptom) ?? Weakness, dizziness or fainting ?? New groin, abdominal or back pain ?? Fever of 100.4?F (38?C) or higher, or as directed by your healthcare provider ?? Repeated vomiting ?? Bleeding from nose, gums or easy bruising ?? [phone] Luis Miguel Bañuelos, [address] [place] [address], [place] [address]. All rights reserved. This information is not [...] you dont have one. Go to [email or web address] and click on Create Your Account. Then, follow the directions to complete the online form. Youll be asked for your [facility] number which you can find at the top of this document. ED Tests and Procedures: Order Status US Scrotum And Contents Ordered Urinalysis with Culture if Indicated Completed Chlamydia Gonorrhoeae Amplified RNA-[place] CGRNA Ordered UR % Dysmorphic RBC Completed Discharge Prescriptions & Home Medications: Medication/Strength [...] responsible alliance party. ASHLEY [employer] ALEXANDER LEELAVERE or responsible alliance party have received this information and my questions have been answered. I have discussed any challenges I see with this plan with the nurse or physician. Patient Signature or Responsible Republican/Relationship Date Time Provider Signature Date Time This document has images extracted. Please consider using [employer] for all your patient education needs. Source: [facility] POWERCHART Document Id: [id number] Tracey Rao R.N. - 07/04/2016 4:45 PM CDT ED Depart Summary [facility] Emergency Department Clinical Discharge Summary PERSON INFORMATION Name JOHN GAVIN Age 25 Years 1990 12:00 AM Sex Male Language New Zealander PCP REGGIE RIVAS MD Marital Status Single Visit Id Visit Reason Pain of testes; scrotal swelling Specialty Enc Type Emergency Med Service Emergency Medicine Referred by [facility] ED Discharge 07/04/2016 4:45 PM Tracking Id [id number] Checkout 07/04/2016 4:45 PM Checkin 07/04/2016 1:41 PM Acuity 3 -Urgent Dispo Type * Discharged to Home or Self Care Arrival 07/04/2016 1:41 PM Reg Status Complete LOS 000 03:04 Address: [address] [facility] [id number] Comment: PROVIDER INFORMATION Provider Role Provider Contact Time BAUTISTA DELGADO MD ED Provider 07/04/16 13:51 TRACEY RAO MEDICAL ASSISTANT INTERNAL MEDICINE Nurse 07/04/16 13:53 DIAGNOSIS Hematuria NOS; Pain Testicular Comment: PATIENT EDUCATION INFORMATION Instructions: TESTICULAR PAIN, Unclear Cause; HEMATURIA Follow up: With: Address: When: REGGIE RIVAS [address] [place] [address] [place] [address] Business (1) Within As Needed Source: [facility] [employer] Document Id: [id number] documented in this encounter ED Notes Tracey Rao R.N. - 07/04/2016 4:43 PM CDT ED Disposition Summary ED Disposition Summary Entered On: 07/04/2016 16:43 CDT Performed On: 07/04/2016 16:43 CDT by TRACEY RAO MEDICAL ASSISTANT INTERNAL MEDICINE Disposition Summary Present in Room During Exam/Procedure : Significant other Mode of Discharge : Ambulatory Transportation : Private vehicle Printed Discharge Instructions Given to Patient : Yes Patient Status at Discharge from ED : Improved TRACEY RAO RN - 07/04/2016 16:43 CDT [facility] Document Id: [id number] CDT!7 Bautsita Delgado M.D. - 07/04/2016 4:36 PM CDT Pain of testes Patient: JOHN GAVIN Age: 25 years Sex: Male : 1990 Author: BAUTISTA DELGADO MD Attachments: None Associated Diagnosis: Pain Testicular; Hematuria NOS Basic Information Additional information: Chief Complaint from Nursing Triage Note : Chief Complaint Description 07/04/2016 14:25 CDT Chief Complaint Description while standing in kitchen started having pain and swelling in left testicle, does not think he did anything to cause it. 07/04/2016 13:42 CDT Chief Complaint Description scrotal swelling today, states it is 4 times the normal size . History of Present Illness Mr. Gavin is a very pleasant 25 year old gentleman who presents to the ED for evaluation of testicular pain. He has never had this pain before, and denies any trauma. Symptoms started 2 hours prior toarrival while standing in the kitchen. Last sexual intercourse was yesterday evening. No urethral discharge. No hematuria. No fever, back pain, abdominal pain. Family history of kidney stones, but he has never had one before. He feels like his testicle is swollen on the left where his pain is comparedto the right. He describes the pain as sharp and severe. States it feels like he was kicked in thescrotum. Denies any other concerns. Review of Systems Pertinent positive and negatives per HPI. All other systems were reviewed and are negative. Health Status Allergies: Allergic Reactions (Selected) Moderate Azithromycin- Hives. Nonallergic Reactions (Selected) Moderate Doxycycline- Nausea & vomiting.. Past Medical/ Family/ Social History Medical history: [...] of - migraine Mother Grandmother (paternal) . Physical Examination Vital Signs: Vital Signs 07/04/2016 13:58 CDT Temperature Core 36.9 DegC Peripheral Pulse Rate 107 /min HI Respiratory Rate 20 /min SpO2 98 % Systolic Blood Pressure 115 mmHg Diastolic Blood Pressure 77 mmHg BP Location Right upper , Measurements 07/04/2016 13:58 CDT Height 175.26 cm Height Source Estimated Dosing Weight 72.50 kg NA Estimated Weight 72.5 kg , SpO2 07/04/2016 13:58 CDT SpO2 98 % . CONSTITUTIONAL: --- Vital signs reviewed. EYES: --- Conjunctivae and lids normal. --- Pupils equal and round, normal in size. ENT AND MOUTH: --- Ears, nose, mouth normal in appearance. --- Moist mucous membranes. NECK: --- Symmetric, supple. --- Midline trachea. CARDIOVASCULAR: --- Non-tachycardic. --- Extremities are warm and well perfused. RESPIRATORY: --- No increased respiratory effort. --- Speaking in full sentences. ABDOMEN: --- Non-distended. --- Non-tender throughout the abdomen including the LLQ. --- Testes normal in appearance with no horizontal lie. Normal cremasteric reflex bilaterally. --- Tender to the superior aspect of the testical on the left with no mass, skin changes, or notableswelling. MUSCULOSKELETAL: --- No obvious injuries, wounds, deformities, of the chest, abdomen, upper and lower extremities. SKIN: --- Skin is warm and dry without areas of warmth or erythema. NEUROLOGIC: --- No focal motor or sensory deficits. Medical Decision Making The patient presents to the ED for evaluation of testicular pain. Exam is reassuring. Abd is non-tender. No gross swelling of the scrotum and normal cremasteric reflex. US shows normal doppler flow to the testes bilaterally and no evidence of orchitis or epididymitis. His UA shows no evidence of infection, although there is some mild hematuria with 3-10 RBC. His pain is improved with toradol and he would like to go home. I'm reassured by his US and improvement of pain. I've told him that a kidney stone is possible but that it would be ok to proceed with a trial of time to see if his pain continues to improve rather than obtain a CT emergently - he would like to go home with a trial of time rather t [place] proceed with CT to definitively exclude kidney stone at this time. I recommended continued ibuprofen treatment for pain. If he develops fever, vomiting, or worsening pain, he's instructed to come back. He is comfortable with this plan and all questions have been answered. Impression and Plan Diagnosis Pain Testicular (Discharge, Emergency medicine, Medical) Hematuria NOS (Discharge, Emergency medicine, Medical) Plan Condition: Stable. Disposition: Medically cleared, Discharged: to home. Patient was given the following educational materials: HEMATURIA, TESTICULAR PAIN, Unclear Cause, TESTICULAR PAIN, Unclear Cause, HEMATURIA. Follow up with: REGGIE Reyes As Needed. Counseled: Patient. Orders: Launch Orders Patient Care: Discharge ED Patient (Order Processing): 07/04/2016 16:37 CDT. Electronically Signed By: BAUTISTA DELGADO MD On: 07/04/2016 04:50 PM Modified by and Electronically Signed by: BAUTISTA DELGADO MD On: 07/04/2016 04:50 PM Source: [employer] Document Id: [id number]} Tracey Rao, R.N. - 07/04/2016 2:29 PM CDT ED Nurse Reassess ED Nurse Reassess Entered On: 07/04/2016 14:29 CDT Performed On: 07/04/2016 14:29 CDT by TRACEY RAO RN Pain Assessment Pain Symptoms : Yes TRACEY RAO RN - 07/04/2016 14:29 CDT Pain Scale Pain Scale Verbal 0-10 : Open TRACEY RAO RN - 07/04/2016 14:29 CDT Pain Pain Assessment Grid Pain 1 Location : Scrotum Laterality : Left Intensity : 7 TRACEY RAO RN - 07/04/2016 14:29 CDT Source: [facility] [employer] Document Id: [id number] CDT!11 Tracey Rao R.N. - 07/04/2016 2:25 PM CDT ED Primary Assessment Document Has Been Updated ED Primary Assessment Entered On: 07/04/2016 14:28 CDT Performed On: 07/04/2016 14:25 CDT by TRACEY RAO RN Reason For Visit (As Of: 07/04/2016 14:28:28 CDT) Problems(Active) Abuse Tobacco Smoking NOS (ICD-10-CM :Z72.0 ) Name of Problem: Abuse Tobacco Smoking NOS ; Recorder:DEVENDRA PINEDO; Confirmation: Confirmed ; Classification: Medical ; Code: Z72.0 ; Contributor System: [employer] ; Last Updated: 10/07/2015 7:19 CENTRAL SERVICE TECHNICIAN ; Life Cycle Date: 10/07/2015 ; Life Cycle Status: Active ; Responsible Provider: DEVENDRA PINEDO; Vocabulary: ICD-10-CM Attention Deficit Disorder of Childhood with Hyperactivity (ICD-9-CM :314.01 ) Name of Problem: Attention Deficit Disorder of Childhood with Hyperactivity ; Onset Date: 06/08/2001 ; Confirmation: Confirmed ; Classification: Medical ; Code: 314.01 ; Contributor System: [employer] ; Last Updated: 10/07/2015 7:12 CENTRAL SERVICE TECHNICIAN ; Life Cycle Status: Active ; Vocabulary: ICD-9-CM ; Comments: - Attention deficit disorder with hyperactivity Bipolar I Disorder, Most Recent Episode (Or Current) Unspecified (ICD-9-CM :296.7 ) Name of Problem:Bipolar I Disorder, Most Recent Episode (Or Current) Unspecified ; Onset Date: 01/07/2006 ; Confirmation: Confirmed ; Classification: Medical ; Code: 296.7 ; Contributor System: [employer] ; Last Updated: 10/07/2015 7:11 CENTRAL SERVICE TECHNICIAN ; Life Cycle Status: Active ; Vocabulary: ICD-9-CM ; Comments: - Bipolar I disorder, most recent episode (or current) unspecified Constipation, Unspecified (ICD-9-CM :564.00 ) Name of Problem: Constipation, Unspecified ; Onset Date: 03/12/2004 ; Confirmation: Confirmed ; Classification: Medical ; Code: 564.00 ; Contributor System: [employer] ; Last Updated: 10/07/2015 7:11 CENTRAL SERVICE TECHNICIAN ; Life Cycle Status: Active ; Vocabulary: ICD-9-CM ; Comments: - Unspecified constipation Headache (ICD-9-CM :784.0 ) Name of Problem: Headache ; Onset Date: 06/08/2001 ; Confirmation: Confirmed ; Classification: Medical ; Code: 784.0 ; Contributor System: [employer] ; Last Updated: 10/07/2015 7:11 CENTRAL SERVICE TECHNICIAN ; Life Cycle Status: Active ; Vocabulary: ICD-9-CM ; Comments: - Headache Tic Disorder, Unspecified (ICD-9-CM :307.20 ) Name of Problem: Tic Disorder, Unspecified ; Onset Date: 07/20/2002 ; Confirmation: Confirmed ; Classification: Medical ; Code: 307.20 ; Contributor System: [employer] ; Last Updated: 10/07/2015 7:11 CENTRAL SERVICE TECHNICIAN ; Life Cycle Status: Active ; Vocabulary: ICD-9-CM ; Comments: - Tic disorder, unspecified Unspecified Sleep Disturbance (ICD-9-CM :780.50 ) Name of Problem: Unspecified Sleep Disturbance ; Onset Date: 07/04/2003 ; Confirmation: Confirmed ; Classification: Medical ; Code: 780.50 ; Contributor System: [employer] ; Last Updated: 10/07/2015 7:11 CENTRAL SERVICE TECHNICIAN ; Life Cycle Status: Active ; Vocabulary: ICD-9-CM ; Comments: - Sleep disturbance, unspecified Diagnoses(Active) Pain of testes Date: 07/04/2016 ; Diagnosis Type: Reason For Visit ; Confirmation: Complaint of ; Clinical Dx: Pain of testes ; Classification: Medical ; Clinical Service: Emergency medicine ; Code: PNED ; Probability: 0 ; Diagnosis Code: [id number] Triage Chief Complaint Description : while standing in kitchen started having pain and swelling in left testicle, does not think he did anything to cause it. Information Given By : Patient, Significant other Present in Room During Exam/Procedure : Significant other Mode of Arrival ED : Private vehicle Track : Medical Languages : [place] Zealander Patient Informed of Triage Location : Emergency department GCS Assessed : Yes Treatments Prior to Arrival : None Is Patient Female and 13-50 no hysterectomy : No TRACEY RAO RN - 07/04/2016 14:25 CDT Edmondson Coma Eye Opening Response Edmondson : Spontaneously Best Verbal Response Edmondson : Oriented Best Motor Response Edmondson : Obeys simple commands Edmondson Coma Score : 15 TRACEY RAO RN - 07/04/2016 14:25 CDT BREEZY BREEZY Level 1 : No BREEZY Level 2 : No BREEZY Level 3 : One TRACEY RAO RN - 07/04/2016 14:25 CDT DCP GENERIC CODE Tracking Acuity : 4 -Less Urgent Tracking Group : [facility] ED TRACEY RAO RN - 07/04/2016 14:25 CDT Allergy (As Of: 07/04/2016 14:28:28 CDT) Allergies (Active) azithromycin Reactions: Hives ; Comments: Comment 1: AZITHROMYCIN DIHYDRATE ; Created By: LOLIS VICTOR RPh; Reaction Status: Active ; Category: Drug ; Substance: azithromycin ; Type: Allergy ; Severity: Moderate ; Updated By: LOLIS VICTOR RPh; Source: Paper Chart/Abstracting ; Reviewed Date: 07/04/2016 14:27 CDT doxycycline Reactions: Nausea & vomiting ; Comments: Comment 1: DOXYCYCLINE ; Created By: LOLIS VICTOR RPh; Reaction Status: Active ; Category: Drug ; Substance: doxycycline ; Type: Intolerance ; Severity: Moderate ; Updated By: LOLIS VICTOR RPh; Source: Paper Chart/Abstracting ; Reviewed Date: 07/04/2016 14:27 CDT Respiratory Airway : Patent Respirations : Unlabored Respiratory Pattern : Regular Oxygen Therapy : Room air TRACEY RAO VISHAL - 07/04/2016 14:25 CDT Cardiovascular Heart Rhythm : Regular Skin Color : Normal for ethnicity Skin Description : Dry Skin Temperature : Warm TRACEY RAO RN - 07/04/2016 14:25 CDT Neurological Last Well Time Known : Not applicable Level of Consciousness : Alert Orientation : Oriented x 3 Characteristics of Speech : Appropriate for age Neuro Patient Stated Symptoms : None Gait : Wide based Swallowing Difficulty/Aspiration Risk : None TRACEY RAO RN - 07/04/2016 14:25 CDT ED Psychosocial Affect/Behavior : Calm, Cooperative, Appropriate Domestic Abuse Concerns : None Behavioral Health Screen/Safety Assmt : No TRACEY RAO VISHAL - 07/04/2016 14:25 CDT Gastrointestinal Nutrition ED : Adequate TRACEY RAO RN - 07/04/2016 14:25 CDT Musculoskeletal Fall Prevention Education Provided : NA TRACEY RAO RN - 07/04/2016 14:25 CDT Social Habits Exposure to Tobacco Smoke : Patient smokes Smoking Status : Current every day smoker Tobacco 2A : Yes Tobacco Use/Currently Using : Yes Tobacco Use/Last 30 Days : Yes Tobacco Use/Last 12 months : Yes Type : Cigarettes: 20-30 per day Tobacco Use/Advised to Quit : Yes Alcohol Use for AUDIT tool : No TRACEY RAO RN - 07/04/2016 14:25 CDT Alcohol Use Grid Alcohol Use : No TRACEY RAO RN - 07/04/2016 14:25 CDT Recreational Drug Use Grid Drug Use : None TRACEY RAO RN - 07/04/2016 14:25 CDT Source: [facility] POWERCHART Document Id: [id number] CDT!66 Lilian Calzada R.N. - 07/04/2016 1:42 PM CDT ED Triage Assessment Document Has Been Updated ED Triage Assessment Entered On: 07/04/2016 13:45 CDT Performed On: 07/04/2016 13:42 CDT by LILIAN CALZADA RN Reason For Visit (As Of: 07/04/2016 13:45:20 CDT) Problems(Active) Abuse Tobacco Smoking NOS (ICD-10-CM :Z72.0 ) Name of Problem: Abuse Tobacco Smoking NOS ; Recorder:DEVENDRA PINEDO; Confirmation: Confirmed ; Classification: Medical ; Code: Z72.0 ; Contributor System: [employer] ; Last Updated: 10/07/2015 7:19 CENTRAL SERVICE TECHNICIAN ; Life Cycle Date: 10/07/2015 ; Life Cycle Status: Active ; Responsible Provider: DEVENDRA PINEDO; Vocabulary: ICD-10-CM Attention Deficit Disorder of Childhood with Hyperactivity (ICD-9-CM :314.01 ) Name of Problem: Attention Deficit Disorder of Childhood with Hyperactivity ; Onset Date: 06/08/2001 ; Confirmation: Confirmed ; Classification: Medical ; Code: 314.01 ; Contributor System: [employer] ; Last Updated: 10/07/2015 7:12 CENTRAL SERVICE TECHNICIAN ; Life Cycle Status: Active ; Vocabulary: ICD-9-CM ; Comments: - Attention deficit disorder with hyperactivity Bipolar I Disorder, Most Recent Episode (Or Current) Unspecified (ICD-9-CM :296.7 ) Name of Problem:Bipolar I Disorder, Most Recent Episode (Or Current) Unspecified ; Onset Date: 01/07/2006 ; Confirmation: Confirmed ; Classification: Medical ; Code: 296.7 ; Contributor System: [employer] ; Last Updated: 10/07/2015 7:11 CENTRAL SERVICE TECHNICIAN ; Life Cycle Status: Active ; Vocabulary: ICD-9-CM ; Comments: - Bipolar I disorder, most recent episode (or current) unspecified Constipation, Unspecified (ICD-9-CM :564.00 ) Name of Problem: Constipation, Unspecified ; Onset Date: 03/12/2004 ; Confirmation: Confirmed ; Classification: Medical ; Code: 564.00 ; Contributor System: [employer] ; Last Updated: 10/07/2015 7:11 CENTRAL SERVICE TECHNICIAN ; Life Cycle Status: Active ; Vocabulary: ICD-9-CM ; Comments: - Unspecified constipation Headache (ICD-9-CM :784.0 ) Name of Problem: Headache ; Onset Date: 06/08/2001 ; Confirmation: Confirmed ; Classification: Medical ; Code: 784.0 ; Contributor System: [employer] ; Last Updated: 10/07/2015 7:11 CENTRAL SERVICE TECHNICIAN ; Life Cycle Status: Active ; Vocabulary: ICD-9-CM ; Comments: - Headache Tic Disorder, Unspecified (ICD-9-CM :307.20 ) Name of Problem: Tic Disorder, Unspecified ; Onset Date: 07/20/2002 ; Confirmation: Confirmed ; Classification: Medical ; Code: 307.20 ; Contributor System: [employer] ; Last Updated: 10/07/2015 7:11 CENTRAL SERVICE TECHNICIAN ; Life Cycle Status: Active ; Vocabulary: ICD-9-CM ; Comments: - Tic disorder, unspecified Unspecified Sleep Disturbance (ICD-9-CM :780.50 ) Name of Problem: Unspecified Sleep Disturbance ; Onset Date: 07/04/2003 ; Confirmation: Confirmed ; Classification: Medical ; Code: 780.50 ; Contributor System: [employer] ; Last Updated: 10/07/2015 7:11 CENTRAL SERVICE TECHNICIAN ; Life Cycle Status: Active ; Vocabulary: ICD-9-CM ; Comments: - Sleep disturbance, unspecified Diagnoses(Active) Pain of testes Date: 07/04/2016 ; Diagnosis Type: Reason For Visit ; Confirmation: Complaint of ; Clinical Dx: Pain of testes ; Classification: Medical ; Clinical Service: Emergency medicine ; Code: PNED ; Probability: 0 ; Diagnosis Code: [id number] Triage Chief Complaint Description : scrotal swelling today, states it is 4 times the normal size Information Given By : Patient Present in Room During Exam/Procedure : Friend Mode of Arrival ED : Private vehicle Track : Medical Languages : [place] Treatments Prior to Arrival : None Is Patient Female and 13-50 no hysterectomy : No LILIAN CALZADA RN - 07/04/2016 13:42 CDT Pain Assessment Pain Symptoms : Yes LILIAN CALZADA RN - 07/04/2016 13:42 CDT Pain Scale Pain Scale Verbal 0-10 : Open LILIAN CALZADA RN - 07/04/2016 13:42 CDT Pain Pain Assessment Grid Pain 1 Location : Scrotum Laterality : Left Intensity : 10 LILIAN CALZADA RN - 07/04/2016 13:42 CDT BREEZY DCP GENERIC CODE Tracking Acuity : 3 -Urgent Tracking Group : [facility] ED LILIAN CALZADA RN - 07/04/2016 13:42 CDT Source: [employer] Document Id: [id number] CDT!24 documented in this encounter Miscellaneous Notes Miscellaneous - Destinee Gandhi M.D. - 07/07/2016 4:48 PM CDT Custom Result Letter July 07, 2016 JHON GAVIN [address] [place] [address] Dear OJHN GAVIN, I am pleased to report that your results from the following diagnostic test(s) are normal. Please follow up with your primary care provider as was discussed during your visit or sooner if you have any concerns. Result Name Current Result Normal Range C trach Amp Src-[place] urine 07/04/2016 C trach Amp RNA-[place] Negative 07/04/2016 Negative - N gonor Amp Src-[place] urine 07/04/2016 N gonor Amp DNA-[place] Negative 07/04/2016 Negative - Sincerely, DESTINEE GANDHI [address] [place] [address] Electronic Signature Electronically Signed By: DESTINEE GANDHI MD On: July 07, 2016 This document has images extracted. Source: [facility] [employer] Document Id: [id number] Electronically signed by Conversion, [facility] Process Development Technician [id number] at 04/25/2017 2:53 AM CDT Miscellaneous - Conversion, Historical Provider Ser - 07/04/2016 4:45 PM CDT Coding Summary-Paper Based CODING DATE: 07/12/2016 FINAL RW [place] [facility] STATUS: * Discharged to Home or Self Care PAYOR: Medicare ADMIT DX: N50.8 Other specified disorders of male genital organs REASON FOR VISIT DX: N50.8 Other specified disorders of male genital organs FINAL DX: PRINCIPAL: N50.8 Other specified disorders of male genital organs SECONDARY: R31.9 Hematuria, unspecified F17.210 Nicotine dependence, cigarettes, uncomplicated Z88.1 Allergy status to other antibiotic agents status PROCEDURES DOCTOR NAME DATE NOTE: The code number assigned matches the documented diagnosis and / or procedure in the patient's chart. However, the narrative phrase printed from the coding software may appear abbreviated, or result in slightly different terminology. Coded By: SHAKIRA DORSEY Date Saved: 07/12/2016 11:25 am Source: [employer] Document Id: [id number] Miscellaneous - Tracey Rao, RJacielN. - 07/04/2016 4:43 PM CDT Valuables/Belongings Valuables/Belongings Entered On: 07/04/2016 16:43 CDT Performed On: 07/04/2016 16:43 CDT by TRACEY RAO RN Valuables/Belongings Room Orientation/Facility Policy Reviewed : Yes Belongings Sent Home With : patient Home Medication Disposition : None brought in with patient TRACEY RAO RN - 07/04/2016 16:43 CDT Source: [facility] [employer] Document Id: [id number] CDT!5 Miscellaneous - Tracey Rao R.N. - 07/04/2016 1:41 PM CDT Facility Charge Ticket 2.0 11.0 DX Facility Charge Ticket 2.0 11.0 DX Entered On: 07/04/2016 16:44 CDT Performed On: 07/04/2016 13:41 CDT by TRACEY RAO RN Facility Charge Ticket 2.0 11.0 DX ED Other Charges : Standard ED Encounter TVL Level Translated RTF : Pain of testes TVL:4 TVL Level for Facility Charge Ticket : Level 4 Arrival Mode Calc : 1 Mode of Arrival ED : Private vehicle [facility] Mode of Arrival Interpreted : Standard [facility] Process Management : None Order Management RTF : Laboratory Urinalysis with Culture if Indicated,07/04/16 14:49,BAUTISTA DELGADO MD Completed UR % Dysmorphic RBC,07/04/16 15:51,BAUTISTA DELGADO MD Completed Chlamydia Gonorrhoeae Amplified RNA-[place] CGRNA,07/04/16 14:49,BAUTISTA DELGADO MD Ordered CT / MRI / Ultrasound Scrotum And Contents US,07/04/16 14:01,BAUTISTA DELGADO MD Ordered [facility] Order Management : CT/MRI/Ultrasound, Lab tests 30 Minutes Critical Care : No Nursing Notes RTF : Triage Forms ED Triage Assessment,07/04/16 13:42,LILIAN CALZADA RN Nursing Notes ED Primary Assessment,07/04/16 14:25,TRACEY RAO MEDICAL ASSISTANT INTERNAL MEDICINE Nurse Reassess,07/04/16 14:29,TRACEY RAO RN [facility] Nursing Assessment : Triage and 3-5 nursing assessments [facility] Disposition : Discharge Disposition RTF : discharge [facility] Total Points with Diagnosis Control : 11 [facility] Visit Level : 34866 Level 4 Treatments Prior to Arrival : None TRACEY RAO RN - 07/04/2016 16:43 CDT [facility] Document Id: [id number] CDT!19 documented in this encounter Plan of Treatment Not on filedocumented as of this encounter Procedures Procedure Name Priority Date/Time Associated Comments Diagnosis N GONOR AMP SRC Routine 07/04/2016 3:40 PM Result s for this CDT procedure are i n the results section. N GONOR AMP DNA Routine 07/04/2016 3:40 PM Result s for this CDT procedure are i n the results section. C TRACH AMP SRC Routine 07/04/2016 3:40 PM Result s for this CDT procedure are i n the results section. C TRACH AMP RNA Routine 07/04/2016 3:40 PM Result s for this CDT procedure are i n the results section. HXUR % DYSMORPHIC Routine 07/04/2016 3:40 PM Resu lts for this RBC CDT procedure are i n the results section. URINALYSIS, Routine 07/04/2016 3:40 PM Results f or this MIDSTREAM, WITH CDT procedure ar e in CULTURE IF INDICATED the res ults section. documented in this encounter Results HX-N gonor Amp DNA (07/04/2016 3:40 PM CDT) athologist Signature HXN gonor Amp Negative POWERCHART DNA-[place] Specimen (Source) Anatomical Collection Method Collection Time Re ceived Time Location / / Volume Laterality 07/04/2016 3:40 PM CDT Narrative POWERCHART - 07/07/2016 4:00 PM CDT ADDITIONAL INFORMATION This report is intended for use in clini shonda monitoring and management of patients. It is not in tended for use in medical-legal applications. Test Performed by: [facility] [place] [address] Vp Construction: Regan Bland II, M.D., Ph.D. Bautista Delgado M.D. LAB HISTORICAL ORDERS Performing Organization Address City/State/ZIP Code Phon e Number POWERCHART HX-N gonor Amp Src (07/04/2016 3:40 PM CDT) athologist Signature HXN gonor Amp urine POWERCHART [facility]-[place] Specimen (Source) Anatomical Collection Method Collection Time Re ceived Time Location / / Volume Laterality 07/04/2016 3:40 PM CDT Bautista Delgado M.D. LAB HISTORICAL ORDERS Performing Organization Address City/State/ZIP Code Phon e Number POWERCHART HX-C trach Amp RNA (07/04/2016 3:40 PM CDT) [facility] Method Time Signature Chlamydia Negative POWERCHART trachomatis amplified RNA Specimen (Source) Anatomical Collection Method Collection Time Re ceived Time Location / / Volume Laterality 07/04/2016 3:40 PM CDT Narrative POWERCHART - 07/07/2016 4:00 PM CDT ADDITIONAL INFORMATION This report is intended for use in clini shonda monitoring and management of patients. It is not in tended for use in medical-legal applications. Bautista Delgado M.D. LAB HISTORICAL ORDERS Performing Organization Address City/State/ZIP Code Phon e Number POWERCHART HX-C trach Amp Src (07/04/2016 3:40 PM CDT) athologist Signature HXC trach Amp urine POWERCHART [facility] Specimen (Source) Anatomical Collection Method Collection Time Re ceived Time Location / / Volume Laterality 07/04/2016 3:40 PM CDT Bautista Delgado M.D. LAB HISTORICAL ORDERS Performing Organization Address City/State/ZIP Code Phon e Number POWERCHART HXUR % DYSMORPHIC RBC (07/04/2016 3:40 PM CDT) athologist Signature Dysmorphic RBC <=25 <=25 POWERCHART Specimen Anatomical Collection Method Collection Time Receive d Time (Source) Location / / Volume Laterality Urine 07/04/2016 3:40 PM 6 3:40 CDT PM CDT Bautista Delgado M.D. LAB HISTORICAL ORDERS Performing Organization Address City/State/ZIP Code Phon e Number POWERCHART (ABNORMAL) Urinalysis, Midstream, with culture if indicated (07/04/2016 3:40 PM CDT) [facility] gist Method Time Signature HXUr Color Yellow Colorless POWERCHART Clarity Clear Clear POWERCHART Glucose Negative Negative POWERCHART MGDL Protein, Ur, 30 (A) Negative POWERCHART Dip MGDL HXBILIRUBIN Negative Negative POWERCHART Urobilinogen 1.0 0.2 MGDL POWERCHART pH, POCT, Urine 6.0 <5.0 POWERCHART HXBLOOD Negative Negative POWERCHART Ketones, QL(U) Negative Negative POWERCHART MGDL HXNITRITE Negative Negative POWERCHART Leukocyte Negative Negative POWERCHART Esterase Specific 1.021 POWERCHART [place], POCT, U HXUR WBC. Occ-3 None Seen POWERCHART HPF HXUR RBC. 3-10 (A) None Seen POWERCHART HPF Squamous Occ-3 (A) None Seen POWERCHART Epithelial HPF Mucus Present (A) None Seen POWERCHART Specimen (Source) Anatomical Collection Method Collection Time Re ceived Time Location / / Volume Laterality Urine 07/04/2016 3:40 PM CDT Bautista Delgado M.D. LAB URINE ORDERABLES Performing Organization Address City/State/ZIP Code Phon e Number POWERCHART documented in this encounter Visit Diagnoses Not on filedocumented in this encounter
--- OUTSIDE RECORDS SUMMARY | 2022-09-25 11:02 | XMS_ITS | Encounter Summary ---
:1990 Author Organization [facility] Address [address] [place] [address] Care Team Providers Name Role Phone Julian Santana M.D. Primary Care Provider Encounter Details Date Type Department Care Team Description 04/01/2018 Nurse Triage Department of [facility] Nataliya Munguia, Medicine, [facility], in [place], [place] [address] [place] [phone] Social History Tobacco Use Types Packs/Day Years [...] on filedocumented in this encounter Care Teams Adolescent Coordinator Relationship Specialty Start Date End Date Julian Santana M.D. PCP - General 05/13/17 [address] [place] [id number] documented as of this encounter
--- OUTSIDE RECORDS SUMMARY | 2022-09-25 11:02 | XMS_ITS | Encounter Summary ---
:1990 Author Organization [facility] Address [address] [place] [id number] Care Team Providers Name Role Phone Unavailable Primary Care Provider Unavailable Encounter Details Date Type Department Care Team Description 04/15/2017 [facility] ED Latisha Shea S, P.AJaciel-CJaciel [address] [place], [place] [phone] (Wo rk) Social History [...] Sign Reading Time Taken Comments Blood Pressure 95/62 04/15/2017 11:05 AM CDT Pulse 83 04/15/2017 11:05 AM CDT Temperature - - Respiratory Rate 16 04/15/2017 11:05 AM CDT Oxygen Saturation - - Inhaled Oxygen Concentration - - Weight 71.5 kg (157 lb 10.1 oz) 04/15/2017 11:05 AM CDT Height 177.8 cm (5' 10) 04/15/2017 11:05 AM CDT Body Mass Index 22.62 04/15/2017 11:05 AM CDT documented in this encounter Discharge Summaries Reese Huynh R.N. - 04/15/2017 11:46 AM CDT ED Depart Summary [facility] Emergency Department Clinical Discharge Summary PERSON INFORMATION Name JOHN GAVIN Age 26 Years 1990 12:00 AM Sex Male Language Yemeni PCP REGGIE RIVAS MD Marital Status Single Visit Id Visit Reason Laceration of lower limb; cut on leg Specialty Enc Type Emergency Med Service Emergency Medicine Referred by Track Group [facility] ED Discharge 04/15/2017 11:46 AM Tracking Id [id number] Checkout 04/15/2017 11:46 AM Checkin 04/15/2017 10:57 AM Acuity 3 -Urgent Dispo Type * Discharged to Home or Self Care Arrival 04/15/2017 10:57 AM Reg Status Complete LOS 000 00:49 Address: [facility] [address] [facility] [address] Comment: PROVIDER INFORMATION Provider Role Provider Contact Time SPENCER ISAACS ED Dice Table Operator 04/15/17 10:58 MAREN CAMACHO [employer]ION[employer] SALES EXECUTIVE Nurse 04/15/17 11:13 HELGA SHEA PA-C ED Provider 04/15/17 11:21 DIAGNOSIS Laceration Ankle Without Foreign Body (FB) Initial L Comment: PATIENT EDUCATION INFORMATION Instructions: LACERATION (Sure+Close) Follow up: With: Address: When: Return to Emergency Department Within 10 days Comments: For suture removal. With: Address: When: ANNETTE ULRICH [address] [place] [id number] Business (9) Within 1 week With: Address: When: REGGIE ROB [address] [place] [phone] Business (2) Within As Needed Source: [facility] POWERCHART Document Id: [id number] Reese Huynh R.N. - 04/15/2017 11:46 AM CDT ED Discharge Instructions [address] [place] [address] Name: JOHN GAVIN Date of : 1990 12:00 AM Visit Date: 04/15/2017 10:57 AM [facility] Number: [id number] Address: [address] [place] [address] AVE [facility] [address] Primary Care Provider: REGGIE RIVAS MD IMPORTANT: [facility] in [place] would like to thank you for allowing us to assist you with your healthcare needs. The following includes patient education materials and information regarding your injury/illness. Diagnosis: Laceration Ankle Without Foreign Body (FB) Initial L Follow-Up Instructions: With: Address: When: Return to Emergency Department Within 10 days Comments: For suture removal. With: Address: When: ANNETTE ULRICH [address] [place] [address] Business (1) Within 1 week With: Address: When: REGGIE RIVAS [address] [place] [address] [phone] Business (3) Within As Needed Your Upcoming Appointments: Date Time Location Provider No Appointments found Patient Education Materials: Laceration (Sure+Close) A laceration is a cut through the skin. You have a laceration that has been closed with Sure+Close skin adhesive, a type of skin glue. Home Care Medications: Acetaminophen (Tylenol) or ibuprofen (Motrin, Advil) may be taken for pain, unless another pain medicine was prescribed. NOTE: If you have chronic liver or kidney disease or ever had a stomach ulcer or GI bleeding, talk with your doctor before using these medications. General Care: ?? Keep the wound clean and dry. You may shower or bathe as usual, but do not use soaps, lotions, orointments on the wound area. Do not scrub the wound. After bathing, pat the wound dry with a soft towel. ?? Do not scratch, rub, or pick at the adhesive film. Do not place tape directly over the film. ?? Do not apply liquids (such as peroxide), ointments, or creams to the wound while the film is in place. ?? Most skin wounds heal without problems. However, an infection sometimes occurs despite proper treatment. Therefore, watch for the signs of infection listed below. Follow Up as directed by the doctor or our staff. The Sure+Close film will fall off naturally in 5 to 7 days. Get Prompt Medical Attention if any of the following occur: ?? Signs of infection: ?? Fever of 100.4?F (38?C) or higher, or as directed by your healthcare provider ?? Increasing pain in the wound ?? Increasing redness or swelling ?? Pus coming from the wound ?? Wound bleeds more than a small amount or bleeding doesnt stop ?? Wound edges come apart ?? You feel numbness or weakness in the wound area that doesnt go away ?? [phone] Luis Miguel Bañuelos, [address] [place] [address], [place] [address]. All rights reserved. This information is not [...] if you dont have one. Go to [email or web address] and click on Create Your Account. Then, follow the directions to complete the online form. Youll be asked for your [facility] number which you can find at the top of this document. ED Tests and Procedures: Order Status Discharge Prescriptions & Home Medications: Medication/Strength Dose Route Frequency Indications/Special Instructions/Comments/Notes ciprofloxacin (Cipro 500 mg oral tablet) 500 mg Oral two times a day for 10 Days Comment: Attention: If you have any medications [...] arrange a ride home with a responsible constitution party. ASHLEY Mederos ALEXANDER LEELAVERE , or responsible constitution party have received this information and my [...] arrange a ride home with a responsible constitution party. ASHLEY Mederos ALEXANDER LEELAVERE , or responsible constitution party have received this information and my questions have been answered. I have discussed any challenges I see with this plan with the nurse or physician. Patient Signature or Responsible Green Party/Relationship Date Time Provider Signature Date Time Source: [facility] [employer] Document Id: [id number] documented in this encounter ED Notes Reese Huynh R.N. - 04/15/2017 11:45 AM CDT ED Disposition Summary ED Disposition Summary Entered On: 04/15/2017 11:45 CDT Performed On: 04/15/2017 11:45 CDT by REESE HUYNH RN ED Disposition Summary Printed Discharge Instructions Given to Patient : Yes Patient Status at Discharge from ED : Improved 30 Minutes Critical Care : No REESE HUYNH RN - 04/15/2017 11:45 CDT Source: [facility] [employer] Document Id: [id number] CDT!5 Maren Camacho R.N. - 04/15/2017 11:15 AM CDT ED Primary Assessment Document Has Been Updated ED Primary Assessment Entered On: 04/15/2017 11:20 CDT Performed On: 04/15/2017 11:15 CDT by MAREN CAMACHO RN Reason For Visit (As Of: 04/15/2017 11:20:57 CDT) Problems(Active) Abuse Tobacco Smoking NOS (ICD-10-CM :Z72.0 ) Name of Problem: Abuse Tobacco Smoking NOS ; Recorder:DEVENDRA PINEDO; Confirmation: Confirmed ; Classification: Medical ; Code: Z72.0 ; Contributor System: [employer] ; Last Updated: 10/07/2015 7:19 MODELING MANAGER ; Life Cycle Date: 10/07/2015 ; Life Cycle Status: Active ; Responsible Provider: DEVENDRA PINEDO; Vocabulary: ICD-10-CM Attention Deficit Disorder of Childhood with Hyperactivity (ICD-9-CM :314.01 ) Name of Problem: Attention Deficit Disorder of Childhood with Hyperactivity ; Onset Date: 06/08/2001 ; Confirmation: Confirmed ; Classification: Medical ; Code: 314.01 ; Contributor System: [employer] ; Last Updated: 10/07/2015 7:12 MODELING MANAGER ; Life Cycle Status: Active ; Vocabulary: ICD-9-CM ; Comments: - Attention deficit disorder with hyperactivity Bipolar I Disorder, Most Recent Episode (Or Current) Unspecified (ICD-9-CM :296.7 ) Name of Problem:Bipolar I Disorder, Most Recent Episode (Or Current) Unspecified ; Onset Date: 01/07/2006 ; Confirmation: Confirmed ; Classification: Medical ; Code: 296.7 ; Contributor System: [employer] ; Last Updated: 10/07/2015 7:11 MODELING MANAGER ; Life Cycle Status: Active ; Vocabulary: ICD-9-CM ; Comments: - Bipolar I disorder, most recent episode (or current) unspecified Constipation, Unspecified (ICD-9-CM :564.00 ) Name of Problem: Constipation, Unspecified ; Onset Date: 03/12/2004 ; Confirmation: Confirmed ; Classification: Medical ; Code: 564.00 ; Contributor System: [employer] ; Last Updated: 10/07/2015 7:11 MODELING MANAGER ; Life Cycle Status: Active ; Vocabulary: ICD-9-CM ; Comments: - Unspecified constipation Headache (ICD-9-CM :784.0 ) Name of Problem: Headache ; Onset Date: 06/08/2001 ; Confirmation: Confirmed ; Classification: Medical ; Code: 784.0 ; Contributor System: [employer] ; Last Updated: 10/07/2015 7:11 MODELING MANAGER ; Life Cycle Status: Active ; Vocabulary: ICD-9-CM ; Comments: - Headache Tic Disorder, Unspecified (ICD-9-CM :307.20 ) Name of Problem: Tic Disorder, Unspecified ; Onset Date: 07/20/2002 ; Confirmation: Confirmed ; Classification: Medical ; Code: 307.20 ; Contributor System: [employer] ; Last Updated: 10/07/2015 7:11 MODELING MANAGER ; Life Cycle Status: Active ; Vocabulary: ICD-9-CM ; Comments: - Tic disorder, unspecified Unspecified Sleep Disturbance (ICD-9-CM :780.50 ) Name of Problem: Unspecified Sleep Disturbance ; Onset Date: 07/04/2003 ; Confirmation: Confirmed ; Classification: Medical ; Code: 780.50 ; Contributor System: [employer] ; Last Updated: 10/07/2015 7:11 MODELING MANAGER ; Life Cycle Status: Active ; Vocabulary: ICD-9-CM ; Comments: - Sleep disturbance, unspecified Diagnoses(Active) Laceration of lower limb Date: 04/15/2017 ; Diagnosis Type: Reason For Visit ; Confirmation: Confirmed ; Clinical Dx: Laceration of lower limb ; Classification: Medical ; Clinical Service: Emergency medicine ; Code: PNED ; Probability: 0 ; Diagnosis Code: [id number] Triage Chief Complaint Description : Pt was cutting wire and cut his right ankle and has a profusely bleeding 1 cm lac on inside of right ankle. Unknown tetanus status Information Given By : Patient Present in Room During Exam/Procedure : Friend Mode of Arrival ED : Private vehicle, Wheelchair Track : Trauma Other Languages : Yemeni Patient Informed of Triage Location : Emergency department Treatments Prior to Arrival : Home treatments Is Patient Female and 13-50 no hysterectomy : No MAREN CAMACHO RN - 04/15/2017 11:15 CDT Pain Assessment Pain Symptoms : No MAREN CAMACHO RN 04/15/2017 11:15 CDT BREEZY DCP GENERIC CODE Tracking Acuity : 3 -Urgent Tracking Group : [facility] ED MAREN CAMACHO RN - 04/15/2017 11:15 CDT Respiratory Airway : Patent Respirations : Unlabored Respiratory Pattern : Regular Oxygen Therapy : Room air MAREN CAMACHO RN - 04/15/2017 11:15 CDT Cardiovascular Heart Rhythm : Regular Skin Color : Normal for ethnicity Skin Description : Dry Skin Temperature : Warm MAREN CAMACHO RN - 04/15/2017 11:15 CDT Neurological Last Well Time Known : Not applicable Level of Consciousness : Alert Orientation : Oriented x 3 Characteristics of Speech : Appropriate for age MAREN CAMACHO RN - 04/15/2017 11:15 CDT ED Psychosocial Affect/Behavior : Calm Domestic Abuse Concerns : None Behavioral Health Screen/Safety Assmt : No MAREN CAMACHO RN 04/15/2017 11:15 CDT Gastrointestinal Nutrition ED : Adequate MAREN CAMACHO RN - 04/15/2017 11:15 CDT Musculoskeletal Fall Prevention Education Provided : Yes MAREN CAMACHO RN - 04/15/2017 11:15 CDT Social Habits Exposure to Tobacco Smoke : Patient smokes Smoking Status : Current every day smoker Tobacco 2A : Yes Tobacco Use/Currently Using : Yes Tobacco Use/Last 30 Days : Yes Tobacco Use/Last 12 months : Yes Type : Cigarettes: 31-40 per day MAREN CAMACHO RN - 04/15/2017 11:15 CDT Alcohol Use Grid Alcohol Use : No MAREN CAMACHO RN - 04/15/2017 11:15 CDT Recreational Drug Use Grid Drug Use : None MAREN CAMACHO RN - 04/15/2017 11:15 CDT Source: [facility] [employer] Document Id: [id number] CDT!54 Helga Shea P.A.-C. - 04/15/2017 10:58 AM CDT Laceration of lower limb Document Contains Addenda Addendum by HELGA SHEA PA-C on April 15, 2017 12:18 CDT I personally performed the services described in this documentation and as scribed in my presence; it is both accurate and complete. Electronically Signed By: HELGA SHEA PA-C On: 04/15/2017 11:57 AM Modified by and Electronically Signed by: HELGA SHEA PA-C On: 04/15/2017 11:57 AM Modified by and Electronically Signed by: HELGA SHEA PA-C On: 04/15/2017 12:18 PM Laceration of lower limb Patient: JOHN GAVIN Age: 26 years Sex: Male : 1990 Author: HELGA SHEA PA-C Attachments: None Associated Diagnosis: Laceration Ankle Without Foreign Body (FB) Initial L; Cellulitis Finger NOS Basic Information Time seen: Date & time 04/15/2017 10:58:00, Spencer Mederos, dewey scribing for and in the presence of Helga Shea PA-C. History source: Patient. Arrival mode: Private vehicle. History limitation: None. History of Present Illness The patient presents with right. The onset was 20 minutes ago. Type of injury: direct blow. The character of symptoms is pain and bleeding. 26 year old male with a history of Bipolar Disorder and ADD presents to the Emergency Department forevaluation of a right leg laceration. Twenty minutes prior to his presentation here, he was reportedly cutting wire at home when he accidentally dropped the knife, resulting in a laceration to the medial aspect of his right ankle. He wrapped the area and applied pressure prior to arrival but was unable to staunch the bleeding on his own. His tetanus was last updated in October 2013. Of note, the patient was seen in this ED on 03/12/17 for a hand laceration sustained from glass during a fall and leftAMA but later returned and underwent surgical exploration to remove a foreign body. Review of Systems Musculoskeletal symptoms: Right ankle laceration. Health Status Allergies: Allergic Reactions (Selected) Moderate Azithromycin- Hives. Nonallergic Reactions (Selected) Moderate Doxycycline- Nausea & vomiting.. Medications: (Selected) Prescriptions Prescribed cephalexin 500 mg oral capsule: 500 mg, 1 cap(s), PO, 4xDay, for 10 day(s), 40 cap(s), 0 Refill(s). Immunizations: Tetanus up to date. Past Medical/ Family/ Social History Surgical history: Debridement ([id number]) on 03/12/2017 at 26 Years. Cystourethroscopy on 06/22/2003 at 12 Years. Tonsillectomy [...] Drug use: Denies. Problem list: All Problems Abuse Tobacco Smoking NOS / Z72.0 / Confirmed Bipolar I Disorder, Most Recent Episode (Or Current) Unspecified / 296.7 / Confirmed Bipolar I disorder, most recent episode (or current) unspecified Constipation, Unspecified / 564.00 / Confirmed Unspecified constipation Attention Deficit Disorder of Childhood with Hyperactivity / 314.01 / Confirmed Attention deficit disorder with hyperactivity Tic Disorder, Unspecified / 307.20 / Confirmed Tic disorder, unspecified Unspecified Sleep Disturbance / 780.50 / Confirmed Sleep disturbance, unspecified Headache / 784.0 / Confirmed Headache. Physical Examination Vital Signs: Vital Signs 04/15/2017 11:05 CDT Temperature Core 36.7 DegC Peripheral Pulse Rate 83 /min Respiratory Rate 16 /min SpO2 100 % Systolic Blood Pressure 95 mmHg Diastolic Blood Pressure 62 mmHg Mean Arterial Pressure 70 mmHg BP Location Left upper . General: Alert and no acute distress. Skin: Stab wound to medial right ankle. Cardiovascular: Normal peripheral perfusion. Respiratory: Respirations are non-labored. Musculoskeletal: No evidence of tendon injury in the right ankle, able to perform full range of motion with right ankle Neurological: Normal sensation in the right foot. Psychiatric: Cooperative. Medical Decision Making Rationale:Patient is laceration just posterior to his right malleolus which appears to have punctured a venous structure. Do not suspect arterial bleed or significant tendon damage.. Procedure Laceration repair Time: 04/15/2017 11:32:00 . Confirmed: Patient, procedure, side, and site correct. Consent: Patient. Description/ repair Laceration 1 cm in length.Shape: linear. Depth: subcutaneous. Details: clean. Neurovascular/ tendon exam: intact. Anesthesia: 1 ml, 1% lidocaine, injected locally. Preparation: sterile field established. Irrigation: minimal. Debridement: none. Skin closure: # 2 sutures, with 4 -0 Nylon, simple technique, interrupted technique. Complexity: single layer. Post procedure exam: Circulation, motor, sensory examination intact, Bleeding controlled. Complications: None. Patient tolerated: Well. Performed by: Self. Impression and Plan Diagnosis Laceration Ankle Without Foreign Body (FB) Initial L (Discharge, Emergency medicine, Medical) Cellulitis Finger NOS (Discharge, Emergency medicine, Medical) Plan Condition: Stable, Laceration sutured and pressure dressing was placed. Patient is to keep the ankleelevated for the rest the day, he is to take it easy and ankle for the next 4-5 days. Return in 7-10days for suture removal. Just prior to discharge the patient mentions some redness on his right finger. Apparently been seen in primary care and placed on cephalexin for this but lost the medication after 3 or 4 days. Patient has previously had surgery in this hand in the last month, has had some redness on the dorsum of his finger over last 2 or 3 weeks. Of note the glass that was in his hand he states was from a fresh water aquarium. He was placed on ciprofloxacin for this. Did residential counselor him regarding the possible tendon issues associated with ciprofloxacin.. Disposition: Discharged: to home. Follow up with: Return to Emergency Department, In: as needed. Counseled: Patient, Regarding diagnosis, Regarding treatment plan, Regarding prescription, Patient indicated understanding of instructions. Electronically Signed By: HELGA SHEA PA-C On: 04/15/2017 11:57 AM Modified by and Electronically Signed by: HELGA SHEA PA-C On: 04/15/2017 11:57 AM Source: [employer] Document Id: [id number] documented in this encounter Miscellaneous Notes Miscellaneous - Conversion, Historical Provider Ser - 04/15/2017 11:46 AM CDT Coding Summary-Paper Based CODING DATE: 04/23/2017 FINAL [facility] STATUS: * Discharged to Home or Self Care PAYOR: Medicare ADMIT DX: S81.811ALaceration without foreign body, right lower leg, initial encounter REASON FOR VISIT DX: S81.811A Laceration without foreign body, right lower leg, initial encounter FINAL DX: PRINCIPAL: S91.011A Laceration without foreign body, right ankle, initial encounter SECONDARY: F17.210 Nicotine dependence, cigarettes, uncomplicated W26.0XXA Contact with knife, initial encounter Y92.[address] in unspecified [...] terminology. Coded By: STEPHANIE VERAS Date Saved: 04/23/2017 03:48 pm Source: [email or web address] Document Id: [id number] Raina - Reese Huynh RJacielNJaciel - 04/15/2017 11:45 AM CDT Valuables/Belongings Valuables/Belongings Entered On: 04/15/2017 11:45 CDT Performed On: 04/15/2017 11:45 CDT by REESE HUYNH RN Valuables/Belongings Valuables/Belongings Grid Valuables with Patient Clothes, Patient Valuables : Pants, Shirt, Shoes REESE HUYNH RN - 04/15/2017 11:45 CDT Source: [email or web address] Document Id: [id number] CDT!5 Raina - Reese Huynh RJacielN. - 04/15/2017 10:57 AM CDT Facility Charge Ticket 2.0 11.0 DX Facility Charge Ticket 2.0 11.0 DX Entered On: 04/15/2017 11:46 CDT Performed On: 04/15/2017 10:57 CDT by REESE HUYNH RN Facility Charge Ticket 2.0 11.0 DX ED Other Charges : Standard ED Encounter TVL Level Translated RTF : Laceration of lower limb TVL:2 TVL Level for Facility Charge Ticket : Level 2 Arrival Mode Calc : 1 Mode of Arrival ED : Private vehicle, Wheelchair Lynx Mode of Arrival Interpreted : Standard Lynx Process Management : None Lynx Order Management : None 30 Minutes Critical Care : No Nursing Notes RTF : Nursing Notes ED Primary Assessment,04/15/17 11:15,MAREN CAMACHO RN [facility] Nursing Assessment : Triage and 1-2 nursing assessments Treatments Prior to Arrival : Home treatments REESE HUYNH RN - 04/15/2017 11:45 CDT Source: [facility] [employer] Document Id: [id number] CDT!14 documented in this encounter Plan of Treatment Not on filedocumented as of this encounter Visit Diagnoses Not on filedocumented in this encounter
--- OUTSIDE RECORDS SUMMARY | 2022-09-25 11:02 | XMS_ITS | Encounter Summary ---
:1990 Author Organization [facility] Address [address] [place] [id number] Care Team Providers Name Role Phone Unavailable Primary Care Provider Unavailable Encounter Details Date Type Department Care Team Description 06/03/2016 Hospital Encounter HX [facility] ED Emanuel Gandhi M.D. [address] [place], [place] [phone] (Wo rk) Social History [...] Sign Reading Time Taken Comments Blood Pressure 106/68 06/03/2016 11:19 PM CDT Pulse 94 06/03/2016 11:19 PM CDT Temperature - - Respiratory Rate 22 06/03/2016 11:19 PM CDT Oxygen Saturation - - Inhaled Oxygen Concentration - - Weight - - Height - - Body Mass Index - - documented in this encounter Discharge Summaries Destinee Gandhi M.D. - 06/03/2016 11:20 PM CDT ED Discharge Instructions [facility] [address] [place] [address] Name: JOHN GAVIN Date of : 1990 12:00 AM Visit Date: 06/03/2016 9:58 PM [facility] Number: [id number] Address: [address] [facility] [address] Primary Care Provider: REGGIE RIVAS MD IMPORTANT: [facility] in [place] would like to thank you for allowing us to assist you with your healthcare needs. The following includes patient education materials and information regarding your injury/illness. Diagnosis: Injury Shoulder Subsequent R Follow-Up Instructions: With: Address: When: [facility] Within As Soon As Possible With: Address: When: REGGIE RIVAS [address] [facility] [place] [address] Business (1) Within As Needed Your Upcoming Appointments: Date Time Location Provider No Appointments found Patient Education Materials: SHOULDER PAIN: The shoulder is prone to injury. Shoulder pain can be caused by heavy lifting, strains, and injuries. It can involve the muscle, tendons, ligaments or bones. Today's exam did not show any obvious sign of bone, muscle, tendon or ligament damage. HOME CARE: 1) Avoid using your shoulder as much as possible for the next few days. 2) Make an ice pack (ice cubes in a plastic bag, wrapped in a towel) and apply over the injured areafor 20 minutes every 1-2 hours the first day. You should continue with ice packs 3-4 times a day forthe next two days. Continue the use of ice packs for relief of pain and swelling as needed. 3) Take pain medicines as prescribed by the doctor 4) Do not lift heavy object, play sports involving the shoulder or put any strain on your shoulder until the pain is gone. 5) Avoid any activity that causes pain. Call your doctor if you: -- Have increased pain -- Have pain that does not get any better over the next couple of weeks. -- Have numbness or tingling that goes down into your arm or hand. -- Have any new or severe symptoms. [NOTE: If X-rays were taken, they will be reviewed by a radiologist. You will be notified of any newfindings that may affect your care.] Consider Using Patient Online Services Patient Online [...] if you dont have one. Go to [email or web address] and click on Create Your Account. Then, follow the directions to complete the online form. Youll be asked for your [facility] number which you can find at [...] arrange a ride home with a responsible democrat. ASHLEY Mederos ALEXANDER LEELAVERE , or responsible democrat have received this information and my questions have been answered. I have discussed any challenges I see with this plan with the nurse or physician. Patient Signature or Responsible Libertarian/Relationship Date Time Provider Signature Date Time IMPORTANT: [...] arrange a ride home with a responsible democrat. I, JOHN GAVIN ROMIEJAYNA , or responsible democrat have received this information and my questions have been answered. I have discussed any challenges I see with this plan with the nurse or physician. Patient Signature or Responsible Libertarian/Relationship Date Time Provider Signature Date Time Source: [facility] [email or web address] Document Id: [id number] Destinee Gandhi M.D. - 06/03/2016 11:20 PM CDT ED Depart Summary [facility] Emergency Department Clinical Discharge Summary PERSON INFORMATION Name JOHN GAVIN Age 25 Years 1990 12:00 AM Sex Male Language Lao PCP REGGIE RIVAS MD Marital Status Single N [id number] Visit Id Visit Reason Shoulder injury - Minor; SHOULDER PAIN Specialty Enc Type Emergency Med Service Emergency Medicine Referred by Track Group [facility] ED Discharge 06/03/2016 11:20 PM Tracking Id [id number] Checkout 06/03/2016 11:20 PM Checkin 06/03/2016 9:58 PM Acuity 4 -Less Urgent Dispo Type * Discharged to Home or Self Care Arrival 06/03/2016 9:58 PM Reg Status Complete LOS 000 01:22 Address: [address] [address] [address] Comment: PROVIDER INFORMATION Provider Role Provider Contact Time GERMAN ANDREWS FLIGHT CONTROLS ENGINEER Nurse 06/03/16 22:02 TESSA ALONZO ED Gift Basket Packer 06/03/16 22:17 DESTINEE GANDHI MD ED Provider 06/03/16 23:05 DIAGNOSIS Injury Shoulder Subsequent R Comment: PATIENT EDUCATION INFORMATION Instructions: SHOULDER PAIN (Custom) Follow up: With: Address: When: [facility] As Soon As Possible With: Address: When: REGGIE RIVAS [address] [place], [place] [id number] [employer] (2) Within As Needed Source: [employer] Document Id: [id number] documented in this encounter ED Notes Timmy Zhang - 06/03/2016 11:19 PM CDT ED Disposition Summary ED Disposition Summary Entered On: 06/03/2016 23:19 CDT Performed On: 06/03/2016 23:19 CDT by TIMMY ZHANG RN ED Disposition Summary Present in Room During Exam/Procedure : Friend Mode of Discharge : Ambulatory Transportation : Private vehicle Printed Discharge Instructions Given to Patient : No Reason Discharge Instructions Not Given : Pt left w/o being seen by provider. Patient Status at Discharge from ED : Unchanged TIMMY ZHANG RN - 06/03/2016 23:19 CDT [facility] Document Id: [id number] CDT!8 Destinee Gandhi M.D. - 06/03/2016 11:06 PM CDT RT Shoulder injury Patient: JOHN GAVIN Age: 25 years Sex: Male : 1990 Author: DESTINEE GANDHI MD Attachments: None Associated Diagnosis: Injury Shoulder Subsequent R Basic Information Time seen: Date & time 06/03/2016 23:06:00. History source: Patient. Arrival mode: Private vehicle. Additional information: Chief Complaint from Nursing Triage Note : Chief Complaint Description 06/03/2016 22:05 CDT Chief Complaint Description Pt was moving about 5 weeks ago. He has had right shoulder pain since then. Pain is 10/10 with movement . History of Present Illness 25-year-old right-handed male presents to the emergency department persistent right shoulder pain for the last 5 weeks after he had hurt it when he was helping his friend move. He was seen in the emergency department on April 21 and had x-ray done that did not show any evidence for dislocation or fracture. He was given an injection of Toradol with some improvement in the pain. It was recommended he ngdvcve-wjz-[id number] medications, rest in orthopedics follow up with not improving over a few days. He has been having persistent pain with any kind of movement. It does feel like it goes out of place at times. He did fall again and seemed to make the pain worse. He has been trying some Tylenol and ibuprofen without much relief. Rating the pain at 10 out of 10. Health Status Allergies: Allergic Reactions (Selected) Moderate Azithromycin- Hives. Nonallergic Reactions (Selected) Moderate Doxycycline- Nausea & vomiting.. Medications: (Selected) Documented Medications Documented Advil Liquigel 200 mg oral capsule: See Instructions, prn, per mom. Past Medical/ Family/ Social History Social history: Alcohol use: Denies, Tobacco use: Regularly, smokes 1.5 pack(s) per day, Drug use: Denies. Problem list: All Problems (Selected) Abuse Tobacco Smoking NOS / Z72.0 / Confirmed Bipolar I Disorder, Most Recent Episode (Or Current) Unspecified / 296.7 / Confirmed Bipolar I disorder, most recent episode (or current) unspecified Attention Deficit Disorder of Childhood with Hyperactivity / 314.01 / Confirmed Attention deficit disorder with hyperactivity. Physical Examination Vital Signs: Vital Signs 06/03/2016 22:07 CDT Temperature Core 37.4 DegC Peripheral Pulse Rate 91 /min Respiratory Rate 16 /min SpO2 99 % Systolic Blood Pressure 120 mmHg Diastolic Blood Pressure 77 mmHg . General: Alert and moderate distress. Musculoskeletal: Proximal upper extremity , and He does have moderate swelling over the anterior right shoulder which feels like the bursa. He has moderate tenderness over both anterior and posterior shoulder. He does have fair range of motion although he has increased pain with any kind of external rotation or internal rotation. No significantbruising noted. Licensed P[facility] Nurse [facility] Nurse strength is normal. No tenderness about the elbow. Neurological: Alert and oriented to person, place, time, and situation and No focal neurological deficit observed. Psychiatric: Cooperative. Impression and Plan Diagnosis Injury Shoulder Subsequent R (Discharge, Emergency medicine, Medical) I did notify the patient that this does not appear to be clinically dislocated at this time. He became upset when I did notify him that we are unable to do an MRI scan in the emergency department or atthis time of night. I did offer doing another plain x-ray to make sure there was no dislocation to confirm my clinical assessment. He became upset and did decide to leave the department without discussing further pain medication. I did recommend he follow up with orthopedics for exam and to consider an MRI or physical therapy. I do suspect that this is related to some bursitis and rotator cuff injury. Plan Condition: Stable. Disposition: Discharged: to home. Patient was given the following educational materials: SHOULDER PAIN (Custom). Limitations: Limited activity. Follow up with: REGGIE RIVAS Within As Needed; [facility] Within As Soon As Possible. Counseled: Patient, Friend, Regarding diagnosis, Regarding treatment plan. Orders: Launch Orders Patient Care: Discharge ED Patient (Order Processing): 06/03/2016 23:18 CDT, Once. Notes: Portions of this chart was completed with speech recognition software. Therefore, please be aware that it may contain recognition errors including nonsensical words and phrases, along with missing words.. Electronically Signed By: DESTINEE GANDHI MD On: 06/04/2016 09:02 AM Modified by and Electronically Signed by: DESTINEE GANDHI MD On: 06/04/2016 09:02 AM This document has images extracted. Source: [facility] POWERCHART Document Id: {[id number]} German Andrews R.N. 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 DESIGNER ; Life Cycle Date: 10/07/2015 ; Life Cycle Status: Active ; Responsible Provider: DEVENDRA PINEDO; Vocabulary: ICD-10-CM Attention Deficit Disorder of Childhood with Hyperactivity (ICD-9-CM :314.01 ) Name of Problem: Attention Deficit Disorder of Childhood with Hyperactivity ; Onset Date: 06/08/2001 ; Confirmation: Confirmed ; Classification: Medical ; Code: 314.01 ; Contributor System: 1d4 PtyChart ; Last Updated: 10/07/2015 7:12 ADVERTISING DESIGNER ; Life Cycle Status: Active ; Vocabulary: ICD-9-CM ; Comments: - Attention deficit disorder with hyperactivity Bipolar I Disorder, Most Recent Episode (Or Current) Unspecified (ICD-9-CM :296.7 ) Name of Problem:Bipolar I Disorder, Most Recent Episode (Or Current) Unspecified ; Onset Date: 01/07/2006 ; Confirmation: Confirmed ; Classification: Medical ; Code: 296.7 ; Contributor System: PowerChart ; Last Updated: 10/07/2015 7:11 ADVERTISING DESIGNER ; Life Cycle Status: Active ; Vocabulary: ICD-9-CM ; Comments: - Bipolar I disorder, most recent episode (or current) unspecified Constipation, Unspecified (ICD-9-CM :564.00 ) Name of Problem: Constipation, Unspecified ; Onset Date: 03/12/2004 ; Confirmation: Confirmed ; Classification: Medical ; Code: 564.00 ; Contributor System: PowerChart ; Last Updated: 10/07/2015 7:11 ADVERTISING DESIGNER ; Life Cycle Status: Active ; Vocabulary: ICD-9-CM ; Comments: - Unspecified constipation Headache (ICD-9-CM :784.0 ) Name of Problem: Headache ; Onset Date: 06/08/2001 ; Confirmation: Confirmed ; Classification: Medical ; Code: 784.0 ; Contributor System: PowerChart ; Last Updated: 10/07/2015 7:11 ADVERTISING DESIGNER ; Life Cycle Status: Active ; Vocabulary: ICD-9-CM ; Comments: - Headache Tic Disorder, Unspecified (ICD-9-CM :307.20 ) Name of Problem: Tic Disorder, Unspecified ; Onset Date: 07/20/2002 ; Confirmation: Confirmed ; Classification: Medical ; Code: 307.20 ; Contributor System: 1d4 PtyChart ; Last Updated: 10/07/2015 7:11 ADVERTISING DESIGNER ; Life Cycle Status: Active ; Vocabulary: ICD-9-CM ; Comments: - Tic disorder, unspecified Unspecified Sleep Disturbance (ICD-9-CM :780.50 ) Name of Problem: Unspecified Sleep Disturbance ; Onset Date: 07/04/2003 ; Confirmation: Confirmed ; Classification: Medical ; Code: 780.50 ; Contributor System: PowerChart ; Last Updated: 10/07/2015 7:11 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 He has had right shoulder pain since then. Pain is 10/10 with movement Information Given By : Patient Present in Room During Exam/Procedure : Foster mother Mode of Arrival ED : Private vehicle, Ambulatory Track : Trauma Other Languages : Lao Patient Informed of Triage Location : Emergency department Treatments Prior to Arrival : Acetaminophen, Ibuprofen Is Patient Female and 13-50 no hysterectomy : No GERMAN ANDREWS RN - 06/03/2016 22:05 CDT Pain Assessment Pain Symptoms : Yes GERMAN ANDREWS RN - 06/03/2016 22:05 CDT BREE[facility]Y DCP GENERIC CODE Tracking Acuity : 4 -Less Urgent Tracking Group : [facility] ED GERMAN ANDREWS RN - 06/03/2016 22:05 CDT Allergy (As Of: 06/03/2016 22:07:46 CDT) Allergies (Active) azithromycin Reactions: Hives ; Comments: Comment 1: AZITHROMYCIN DIHYDRATE ; Created By: LOLIS VICTOR RP; Reaction Status: Active ; Category: Drug ; Substance: azithromycin ; Type: Allergy ; Severity: Moderate ; Updated By: LOLIS VICTOR RP; Source: Paper Chart/Abstracting ; Reviewed Date: 06/03/2016 22:06 CDT doxycycline Reactions: Nausea & vomiting ; Comments: Comment 1: DOXYCYCLINE ; Created By: LOLIS VICTOR RPh; Reaction Status: Active ; Category: Drug ; Substance: doxycycline ; Type: Intolerance ; Severity: Moderate ; Updated By: LOLIS VICTOR RP; Source: Paper Chart/Abstracting ; Reviewed Date: 06/03/2016 22:06 CDT Respiratory Airway : Patent Respirations : Unlabored Respiratory Pattern : Regular Oxygen Therapy : Room air GERMAN ANDREWS RN - 06/03/2016 22:05 CDT Cardiovascular Heart Rhythm : Regular Skin Color : Normal for ethnicity Skin Description : Normal Skin Temperature : Warm GERMAN ANDREWS RN - 06/03/2016 22:05 CDT Neurological Last Well Time Known : Not applicable Level of Consciousness : Alert Orientation : Oriented x 3 Characteristics of Speech : Appropriate for age GERMAN ANDREWS RN - 06/03/2016 22:05 CDT ED Psychosocial Affect/Behavior : Calm, Cooperative, Appropriate Domestic Abuse Concerns : None Behavioral Health Screen/Safety Assmt : No GERMAN ANDREWS RN - 06/03/2016 22:05 CDT Gastrointestinal Nutrition ED : Adequate GERMAN ANDREWS RN - 06/03/2016 22:05 CDT Musculoskeletal Fall Prevention Education Provided : GERMAN OJEDA RN - 06/03/2016 22:05 CDT Social Habits Exposure to Tobacco Smoke : Patient smokes Smoking Status : Current every day smoker Tobacco 2A : Yes Tobacco Use/Currently Using : Yes Tobacco Use/Last 30 Days : Yes Tobacco Use/Last 12 months : Yes Type : Cigarettes: Less than 20 per day, Cigarettes: 20-30 per day Tobacco Use/Advised to Quit : Yes GERMAN ANDREWS RN - 06/03/2016 22:05 CDT Alcohol Use Grid Alcohol Use : No GERMAN ANDREWS RN - 06/03/2016 22:05 CDT Recreational Drug Use Grid Drug Use : None GERMAN ANDREWS RN - 06/03/2016 22:05 CDT Source: [employer] Document Id: [id number] CDT!55 documented in this encounter Miscellaneous Notes Miscellaneous - Hansa Roberts R.N. - 06/03/2016 11:20 PM CDT Communication Note Communication Note Entered On: 06/03/2016 23:21 CDT Performed On: 06/03/2016 23:20 CDT by HANSA ROBERTS RN Communication Assessment Communication Note : pt left with wout getting discharge papers or getting discarge instructions from HANSA Coyle RN - 06/03/2016 23:20 CDT Source: [employer] Document Id: [id number] CDT!3 Miscellaneous - Conversion, Historical Provider Ser - 06/03/2016 11:20 PM CDT Coding Summary-Paper Based CODING DATE: 06/11/2016 FINAL [facility] STATUS: * Discharged to Home or Self Care PAYOR: Medicare ADMIT DX: M25.511 Pain in right shoulder REASON FOR VISIT DX: M25.511 Pain in right shoulder FINAL DX: PRINCIPAL: S49.91XD Unspecified injury of right shoulder and upper arm, subsequent encounter SECONDARY: F17.210 Nicotine dependence, cigarettes, uncomplicated Z88.1 Allergy status to other antibiotic agents status W19.XXXA Unspecified fall, initial encounter Y92.[address] or not applicable PROCEDURES DOCTOR NAME DATE NOTE: The code number assigned matches the documented diagnosis and / or procedure in the patient's chart. However, the narrative phrase printed from the coding software may appear abbreviated, or result in slightly different terminology. Coded By: OLEKSANDR LOPEZ Date Saved: 06/11/2016 09:23 am Source: [facility] [email or web address] Document Id: [id number] Raina - Timmy Zhang - 06/03/2016 11:19 PM CDT Discharge Vital Signs Form Discharge Vital Signs Form Entered On: 06/03/2016 23:19 CDT Performed On: 06/03/2016 23:19 CDT by TIMMY ZHANG RN Vital Signs Peripheral Pulse Rate : 94 /min Respiratory Rate : 22 /min (HI) Systolic Blood Pressure : 106 mmHg Diastolic Blood Pressure : 68 mmHg NIBP Mean : 81 mmHg SpO2 : 99 % Oxygen Therapy : Room air TIMMY ZHANG RN - 06/03/2016 23:19 CDT Source: [facility] [email or web address] Document Id: [id number] CDT!9 Raina - Timmy Zhang - 06/03/2016 11:19 PM CDT Valuables/Belongings Valuables/Belongings Entered On: 06/03/2016 23:19 CDT Performed On: 06/03/2016 23:19 CDT by TIMMY ZHANG RN Valuables/Belongings Belongings Sent Home With : Room clear Home Medication Disposition : None brought in with patient TIMMY ZHANG RN - 06/03/2016 23:19 CDT Source: [facility] [email or web address] Document Id: [id number] CDT!4 Timmy Bingham - 06/03/2016 9:58 PM CDT Facility Charge Ticket 2.0 11.0 DX Facility Charge Ticket 2.0 11.0 DX Entered On: 06/03/2016 23:20 CDT Performed On: 06/03/2016 21:58 CDT by TIMMY ZHANG RN Facility Charge Ticket 2.0 11.0 DX [...] Notes RTF : Nursing Notes ED Primary Assessment,06/03/16 22:05,GERMAN ANDREWS RN [facility] Nursing Assessment : Triage and 1-2 nursing assessments [facility] Disposition : Discharge [facility] Total Points with Diagnosis Control : 5 [place]x Visit Level : [address]4264 Level 3 Treatments Prior to Arrival : Acetaminophen, Ibuprofen TIMMY ZHANG RN - 06/03/2016 23:19 CDT [facility] Document Id: [id number] CDT!17 documented in this encounter Plan of Treatment Not on filedocumented as of this encounter Visit Diagnoses Not on filedocumented in this encounter
--- OUTSIDE RECORDS SUMMARY | 2022-09-25 11:03 | XMS_ITS | Encounter Summary ---
:1990 Author Organization [facility] Address [address] [place] [address] Care Team Providers Name Role Phone Unavailable Primary Care Provider Unavailable Encounter Details Date Type Department Care Team Description 10/30/2014 Hospital Encounter HX [facility] ED Cory Salgado M.D. [address], [place] [phone] (Wo rk) Social History [...] Sign Reading Time Taken Comments Blood Pressure 136/78 10/30/2014 8:58 PM OBSTETRICS GYNECOLOGY PHYSICIAN Pulse 113 10/30/2014 8:58 PM OBSTETRICS GYNECOLOGY PHYSICIAN Temperature - - Respiratory Rate 14 10/30/2014 8:58 PM OBSTETRICS GYNECOLOGY PHYSICIAN Oxygen Saturation - - Inhaled Oxygen Concentration - - Weight - - Height 177.8 cm (5' 10) 10/30/2014 8:58 PM OBSTETRICS GYNECOLOGY PHYSICIAN Body Mass Index - - documented in this encounter Discharge Summaries Yamel Dave R.N. - 10/30/2014 11:05 PM CST ED Discharge Instructions [facility] [address] [place] [address] Name: NOEL GAVIN Date of : 1990 12:00 AM Visit Date: 10/30/2014 8:44 PM [facility] Number: [id number] Address: [address] [place] [id number] Primary Care Provider: REGGIE RIVAS MD IMPORTANT: [facility] in [place] would like to thank you for allowing us to assist you with your healthcare needs. The following includes patient education materials and information regarding your injury/illness. Diagnosis: Gastroenteritis NOS; Mass Scrotum Follow-Up Instructions: With: Address: When: Follow up with urology. Call [phone] tomorrow for an appt. Within As Needed Comments: With: Address: When: REGGIE RIVAS [address] [place] [address] Business (1) Within As Needed Comments: Your Upcoming Appointments: Date Time Location Provider No Appointments found Patient Education Materials: [id number] GASTROENTERITIS [Non-infectious, 6 yr-Adult] Your symptoms today are coming from the intestinal tract. This may occur as a result of food sensitivity, inflammation of the GI tract, medicines, stress or other causes not related to infection. This may last from 1-3 days. Antibiotics are not effective, but simple home treatment will be helpful. HOME CARE: ?? If symptoms are severe, rest at home for the next 24 hours. ?? You may use acetaminophen (Tylenol) or ibuprofen (Motrin, Advil) to control fever, unless anothermedicine was prescribed. [NOTE: If you have chronic liver or kidney disease or ever had a stomach ulcer or GI bleeding, talk with your doctor before using these medicines.] (Aspirin should never be used in anyone under 18 years of age who is ill with a fever. It may cause severe liver damage.) ?? Avoid tobacco and alcohol use, which may make your symptoms worse. ?? If medicines for diarrhea or vomiting were prescribed, take only as directed. ?? Once vomiting stops, then follow these guidelines: DURING THE FIRST 12-24 HOURS follow the diet below: ?? BEVERAGES: Sport drinks like Gatorade, soft drinks without caffeine; gingerale, mineral water (plain or flavored), decaffeinated tea and coffee. ?? SOUPS: Clear broth, consomm?? and bouillon ?? DESSERTS: Plain gelatin (Jell-O), popsicles and fruit juice bars. DURING THE NEXT 24 HOURS you may add the following to the above: ?? Hot cereal, plain toast, bread, rolls, crackers ?? Plain noodles, rice, mashed potatoes, chicken noodle or rice soup ?? Unsweetened canned fruit (avoid pineapple), bananas ?? Limit caffeine and chocolate. No spices or seasonings except salt. DURING THE NEXT 24 HOURS Gradually resume a normal diet, as you feel better and your symptoms lessen. FOLLOW UP with your doctor as advised if you are not improving over the next 2-3 days. If a stool (diarrhea) sample was taken, you may call in 2 days (or as directed) for the results. GET PROMPT MEDICAL ATTENTION if any of the following occur: ?? Increasing abdominal pain or constant lower right abdominal pain ?? Continued vomiting (unable to keep liquids down) ?? Frequent diarrhea (more than 5 times a day) ?? Blood in vomit or stool (black or red color) ?? Reduced oral intake ?? Dark urine, reduced urine output ?? Weakness, dizziness, fainting ?? Drowsiness, confusion, stiff neck or seizure ?? Fever of 100.4??F (38??C) or higher, or as directed by your healthcare provider New rash ?? [phone] [facility], [address] [place] [address], [place] [address]. All rights reserved. This information is not intended as a substitute for professional medical care. Always follow your healthcare professional's instructions. ED Tests and Procedures: Order Status Automated Diff-5 Part Completed CBC (includes Auto Differential) Completed Comprehensive Metabolic Panel Completed Discharge Prescriptions & Home Medications: Medication/Strength Dose Route Frequency Indications/Special Instructions/Comments/Notes prochlorperazine (Compazine 10 mg oral tablet) 10 mg Oral three times a day as needed for Nausea pyxis cyclobenzaprine (cyclobenzaprine 5 mg oral tablet) 5 mg Oral three times a day as needed for Muscle spasm methylPREDNISolone (methylPREDNISolone 4 mg oral tablet) See Instructions Follow package instructions OXcarbazepine (OXcarbazepine 600 mg oral tablet) 300 mg Oral two times a day traZODone (traZODone 100 mg oral tablet) 100 mg Oral once a day (at bedtime) omeprazole (omeprazole 20 mg oral delayed release tablet) [...] at all times in case of emergency. Medication Reconciliation: Reconciliation is a process of identifying the most accurate list of all medications a patient is taking - including name, dosage, frequency, and route - and using this list to provide to the patient information about how to take those medications. NOEL GAVIN or corey has reviewed the home medications you have listed with us. Review the following instructions: You have NOT received any prescriptions and you have told us you are not currently taking any home medications You have NOT received any prescriptions. You have been provided a discharge medications list and you may CONTINUE taking your medications as previously prescribed by your regular providers. You have received the listed prescriptions and BEGIN all listed prescriptions as directed. Since you have listed no home medications, please check with your family doctor if you are taking any other medications. You have received the listed prescriptions and BEGIN all listed prescriptions as directed. Youhave been provided a discharge medications list and you may CONTINUE all home medications as previously prescribed by your regular providers. You have received the listed prescriptions and BEGIN all listed prescriptions as directed. Youhave been provided a discharge medications list. The following CHANGES have been made to your medication list; Otherwise, CONTINUE all home medications as previously prescribed by your regular provider. IMPORTANT: We examined and treated you today [...] arrange a ride home with a responsible republican. I, NOEL GAVIN , or responsible republican have received this information and my questions have been answered. I have discussed any challenges I see with this plan with the nurse or physician. Patient Signature or Responsible Republican/Relationship Date Time Provider Signature Date Time Medication Reconciliation: Reconciliation is a process of identifying the most accurate list of all medications a patient is taking - including name, dosage, frequency, and route - and using this list to provide to the patient information about how to take those medications. NOEL GAVIN or corey has reviewed the home medications you have listed with us. Review the following instructions: You have NOT received any prescriptions and you have told us you are not currently taking any home medications You have NOT received any prescriptions. You have been provided a discharge medications list and you may CONTINUE taking your medications as previously prescribed by your regular providers. You have received the listed prescriptions and BEGIN all listed prescriptions as directed. Since you have listed no home medications, please check with your family doctor if you are taking any other medications. You have received the listed prescriptions and BEGIN all listed prescriptions as directed. Youhave been provided a discharge medications list and you may CONTINUE all home medications as previously prescribed by your regular providers. You have received the listed prescriptions and BEGIN all listed prescriptions as directed. Youhave been provided a discharge medications list. The following CHANGES have been made to your medication list; Otherwise, CONTINUE all home medications as previously prescribed by your regular provider. IMPORTANT: We examined and treated you today [...] arrange a ride home with a responsible republican. I, NOEL GAVIN SYLVESTER , or responsible republican have received this information and my questions have been answered. I have discussed any challenges I see with this plan with the nurse or physician. Patient Signature or Responsible Republican/Relationship Date Time Provider Signature Date Time This document has images extracted. Please consider using [employer] for all your patient education needs. Source: [facility] POWERCHART Document Id: [id number] ETRICS GYNECOLOGY PHYSICIAN Yamel Dave R.N. - 10/30/2014 11:04 PM CST ED Depart Summary [facility] Emergency Department Clinical Discharge Summary PERSON INFORMATION Name NOEL GAVINJAYNA Age 24 Years 1990 12:00 AM Sex Male Language [place] Citizen PCP REGGIE RIVAS MD Marital Status Single Visit Id Visit Reason General medical; flu symptoms Specialty Enc Type Emergency Med Service Emergency Medicine Referred by Track Group [facility] ED Discharge 10/30/2014 11:00 PM Tracking Id [id number] Checkout 10/30/2014 11:00 PM Checkin 10/30/2014 8:44 PM Acuity 3 -Urgent Dispo Type * Discharged to Home or Self Care Arrival 10/30/2014 8:44 PM Reg Status Complete LOS 000 02:16 Address: [address] [place] [id number] Comment: PROVIDER INFORMATION Provider Role Provider Contact Time CORY SALGADO MD ED Provider 10/30/14 21:04 KRYSTEN POP RN ED Nurse 10/30/14 21:08 DIAGNOSIS Gastroenteritis NOS; Mass Scrotum Comment: PATIENT EDUCATION INFORMATION Instructions: GASTROENTERITIS, Non-Infectious [8y-Adult] Follow up: With: Address: When: Follow up with urology. Call [phone] tomorrow for an appt. Within As Needed Comments: With: Address: When: REGGIE RIVAS [address] [place] [address] Business (7) Within As Needed Comments: [facility] Document Id: [id number] ETRICS GYNECOLOGY PHYSICIAN documented in this encounter ED Notes Yamel Dave R.N. - 10/30/2014 11:04 PM CST ED Pain Assessment ED Pain Assessment Entered On: 10/30/2014 23:04 OBSTETRICS GYNECOLOGY PHYSICIAN Performed On: 10/30/2014 23:04 OBSTETRICS GYNECOLOGY PHYSICIAN by YAMEL DAVE RN Pain Assessment Pain Symptoms : Yes YAMEL DAVE RN - 10/30/2014 23:04 OBSTETRICS GYNECOLOGY PHYSICIAN Pain Pain Assessment Grid Pain 1 Location : Other: testicle Intensity : 6 YAMEL DAVE RN - 10/30/2014 23:04 OBSTETRICS GYNECOLOGY PHYSICIAN Source: [facility] [employer] Document Id: [id number] OBSTETRICS GYNECOLOGY PHYSICIAN!8 ETRICS GYNECOLOGY PHYSICIAN Yamel Dave R.N. - 10/30/2014 11:03 PM CST ED Disposition Summary ED Disposition Summary Entered On: 10/30/2014 23:03 OBSTETRICS GYNECOLOGY PHYSICIAN Performed On: 10/30/2014 23:03 OBSTETRICS GYNECOLOGY PHYSICIAN by YAMEL DAVE [employer] Disposition Summary Accompanied By : Friend Mode of Discharge : Ambulatory Transportation : Private vehicle Printed Discharge Instructions Given to Patient : Yes Patient Status at Discharge from ED : Unchanged YAMEL DAVE RN - 10/30/2014 23:03 OBSTETRICS GYNECOLOGY PHYSICIAN Source: [facility] POWERCHART Document Id: [id number] OBSTETRICS GYNECOLOGY PHYSICIAN!7 ETRICS GYNECOLOGY PHYSICIAN Cory Salgado M.D. - 10/30/2014 9:30 PM CST Diarrhea *ED Patient: NOEL GAVIN Age: 24 years Sex: Male : 1990 Author: CORY SALGADO MD Attachments: None Associated Diagnosis: Gastroenteritis NOS; Mass Scrotum Basic Information Additional information: Chief Complaint from Nursing Triage Note : Chief Complaint Description 10/30/2014 21:00 OBSTETRICS GYNECOLOGY PHYSICIAN Chief Complaint Description Pt. states he is having blood in his stool. Has been going on for a while but pt. states he has had the diarrhea and this has made it wirse. Also has lump on testicle that he states is stuck and becoming painful. . History of Present Illness The patient presents with diarrhea and for the past 48 hours. He reports occassionally seeing some bright red blood on the toilet paper, but after having the diarrhea now for 2 days has seen an occassional swirl of bright red blood in the toilet. No weight loss, fever or chills. Started with 1 episodeof vomiting, but has been able to eat normally since them. He also has a mass in his right scrotum that has been present since he was 18, but has been enlarging and feel more uncomfortable. No trauma, dysuria or frequency. He has had an ultrasound of this in the remote past, but never followed up. Theprevious films are not available in [employer]. Review of Systems Constitutional symptoms: Negative except as documented in HPI. Skin symptoms: Negative except as documented in HPI. Eye symptoms: Negative except as documented in HPI. ENMT symptoms: Negative except as documented in HPI. Respiratory symptoms: Negative except as documented in HPI. Cardiovascular symptoms: Negative except as documented in HPI. Gastrointestinal symptoms: Negative except as documented in HPI. Genitourinary symptoms: Negative except as documented in HPI. Musculoskeletal symptoms: Negative except as documented in HPI. Neurologic symptoms: Negative except as documented in HPI. Psychiatric symptoms: Negative except as documented in HPI. Endocrine symptoms: Negative except as documented in HPI. Hematologic/Lymphatic symptoms: Negative except as documented in HPI. Allergy/immunologic symptoms: Negative except as documented in HPI. Additional review of systems information: All other [...] tablet: 100 mg, PO, Bedtime, 30 tab(s) Discontinue amoxicillin-clavulanate 875 mg-125 mg oral tablet: 1 tab(s), PO, 2xDay, 20 tab(s) Documented Medications Documented Advil Liquigel 200 mg oral capsule: See Instructions, prn, per mom. Past Medical/ Family/ Social History Medical history: No active or resolved past medical history items have been selected or recorded.. Surgical history: HC CYSTOURETHROSCOPY - 06/22/03 on 06/22/2003 at 12 Years. HC REMOVAL OF TONSILS,<12 Y/O - 10/31/97 - [facility] on 10/31/1997 at 7 Years. C CYSTOSCOPY,URETERAL MEATOTOMY - 07/18/97 on 07/18/1997 at 6 Years. HC REMOVAL ADENOIDS,PRIMARY,<12 Y/O - 05/05/96 - [facility] on 05/05/1996 at 5 Years. HC REPAIR INTERMED, WOUND TRUNK/ARM/LEG <=2.5 CM - 03/23/96 - Laceration (R) hand 5th finger on 03/23/1996 at 5 Years. HC CREATE EARDRUM OPENING,GEN ANESTH - 05/21/95 - (R) Myringotomy w tubes on 05/21/1995 at 4 Years. HC REPAIR ING HERNIA,6MO-5YR,REDUC - 03/13/94 - (R) on 03/13/1994 at 20 Months. HC CIRCUMCISION CLAMP/DEVICE on .. Family history: No family history items have been selected or recorded.. Physical Examination Vital Signs: Vital Signs 10/30/2014 20:58 OBSTETRICS GYNECOLOGY PHYSICIAN Temperature Core 36.7 DegC Peripheral Pulse Rate 113 /min HI Respiratory Rate 14 /min SpO2 96 % Systolic Blood Pressure 136 mmHg Diastolic Blood Pressure 78 mmHg , Measurements 10/30/2014 20:58 OBSTETRICS GYNECOLOGY PHYSICIAN Height 177.8 cm Height Source Estimated Dosing Weight 75.00 kg NA Estimated Weight 75 kg , SpO2 10/30/2014 20:58 OBSTETRICS GYNECOLOGY PHYSICIAN SpO2 96 % . General: Alert and no acute distress. Skin: Warm, dry, pink and intact. Head: Normocephalic and atraumatic. Neck: Supple, trachea midline and no tenderness. Eye: Pupils are equal, round and reactive to light, extraocular movements are intact, normal conjunctiva and vision grossly normal. Ears, nose, mouth and throat: Tympanic membranes clear, oral mucosa moist and no pharyngeal erythemaor exudate. Cardiovascular: Regular rate and rhythm, No murmur, Normal peripheral perfusion and No edema. Respiratory: Lungs are clear to auscultation, respirations are non-labored and breath sounds are equal. Gastrointestinal: Soft, Nontender, Non distended and Normal bowel sounds. Genitourinary: No tenderness, 1.5 cm mobile, smooth mass just cranial to the right testicle, nontender and This appears consistent with a possible spermatocoele, but recommended further evaluation withurology. Back: Nontender, Normal range of motion and Normal alignment. Musculoskeletal: Normal ROM. normal strength. no tenderness. no swelling. no deformity. Neurological: Alert and oriented to person, place, time, and situation, No focal neurological deficit observed, CN II-XII intact, normal sensory observed, normal motor observed and normal speech observed. Lymphatics: No lymphadenopathy. Psychiatric: Cooperative, appropriate mood & affect and normal judgment. Medical Decision Making OrdersLaunch Orders Laboratory: Comprehensive Metabolic Panel (Order Processing): Stat, 10/30/2014 21:45 OBSTETRICS GYNECOLOGY PHYSICIAN, Once CBC (includes Auto Differential) (Order Processing): Stat, 10/30/2014 21:45 OBSTETRICS GYNECOLOGY PHYSICIAN, Once. Results review:Lab results : Lab View 10/30/2014 21:55 OBSTETRICS GYNECOLOGY PHYSICIAN Hgb 15.0 g/dL Hct 44.6 % WBC 12.0 x10(9)/L HI RBC 5.19 x10(12)/L MCV 85.9 fL RDW 13.0 % Platelet 290 x10(9)/L Neutro Absolute 9.12 10(9)/L HI Lymph Absolute 2.00 x10(9)/L Pacific Absolute 0.77 x10(9)/L Eos Absolute 0.08 x10(9)/L Baso Absolute 0.01 x10(9)/L Sodium Lvl 140 mmol/L Potassium Lvl 3.9 mmol/L Chloride 101 mmol/L CO2 26 mmol/L AGAP 13 mmol/L Alkaline Phosphatase 91 U/L Glucose Lvl 101 mg/dL Creatinine 0.96 mg/dL EGFR (MDRD) >60 mL/min/1.73m2 EGFR (MDRD) >60 mL/min/1.73m2 BUN 9 mg/dL Calcium Lvl 9.8 mg/dL Protein Total 7.4 g/dL Albumin Lvl 4.4 g/dL AST 25 U/L ALT <5 U/L LOW Bili Total 0.6 mg/dL . Impression and Plan Diagnosis Gastroenteritis NOS (Discharge, Emergency medicine, Medical) Mass Scrotum (Discharge, Emergency medicine, Medical) Plan Condition: Stable. Disposition: Discharged: to home. Prescriptions: Prescription [facility]: Compazine 10 mg oral tablet (Prescribe): 10 mg, 1 tab(s), PO, 3xDay, 4 tab(s), PRN, Nausea. Patient was given the following educational materials: GASTROENTERITIS, Non- Infectious [6y-Adult], GASTROENTERITIS, Non-Infectious [6y-Adult]. Follow up with: REGGIE RIVAS Within As Needed; Follow up with urology. Call [phone] tomorrow for anappt. Within As Needed. Counseled: Patient, Regarding diagnosis, Regarding diagnostic results, Regarding treatment plan, Regarding prescription, Patient indicated understanding of instructions. Orders: Launch Orders Patient Care: Discharge ED Patient (Order Processing): 10/30/2014 22:54 OBSTETRICS GYNECOLOGY PHYSICIAN, Once. Electronically Signed By: CORY SALGADO MD On: 10/30/2014 10:55 PM Modified by and Electronically Signed by: CORY SALGADO MD On: 10/30/2014 09:42 PM Source: [facility] POWERCHART Document Id: [id number] ETRICS GYNECOLOGY PHYSICIAN Krysten Pop R.N. - 10/30/2014 9:00 PM CST ED Primary Assessment Document Has Been Updated ED Primary Assessment Entered On: 10/30/2014 21:06 OBSTETRICS GYNECOLOGY PHYSICIAN Performed On: 10/30/2014 21:00 OBSTETRICS GYNECOLOGY PHYSICIAN by KRYSTEN POP RN Reason For Visit (As Of: 10/30/2014 21:06:26 OBSTETRICS GYNECOLOGY PHYSICIAN) Problems(Active) Attention Deficit Disorder of Childhood with Hyperactivity (ICD-9-CM :314.01 ) Name of Problem: Attention Deficit Disorder of Childhood with Hyperactivity ; Onset Date: 06/08/2001 ; Confirmation: Confirmed ; Classification: Medical ; Code: 314.01 ; Contributor System: [facility]HX_[facility]_UPLOAD ; Last Updated:02/24/2014 15:28 CDT ; Life Cycle Status: Active ; Vocabulary: ICD-9-CM ; Comments: - Attention deficit disorder with hyperactivity Bipolar I Disorder, Most Recent Episode (Or Current) Unspecified (ICD-9-CM :296.7 ) Name of Problem:Bipolar I Disorder, Most Recent Episode (Or Current) Unspecified ; Onset Date: 01/07/2006 ; Confirmation: Confirmed ; Classification: Medical ; Code: 296.7 ; Contributor System: [facility]PL[facility] ; Last Updated: 02/24/2014 15:28 CDT ; Life Cycle Status: Active ; Vocabulary: ICD-9-CM ; Comments: - Bipolar I disorder, most recent episode (or current) unspecified Constipation, Unspecified (ICD-9-CM :564.00 ) Name of Problem: Constipation, Unspecified ; Onset Date: 03/12/2004 ; Confirmation: Confirmed ; Classification: Medical ; Code: 564.00 ; Contributor System: [facility]PL[facility] ; Last Updated: 02/24/2014 15:28 CDT ; Life Cycle Status: Active ; Vocabulary: ICD-9-CM ; Comments: - Unspecified constipation Headache (ICD-9-CM :784.0 ) Name of Problem: Headache ; Onset Date: 06/08/2001 ; Confirmation: Confirmed ; Classification: Medical ; Code: 784.0 ; Contributor System: [facility]_HX_PR_RebtelOAD ; Last Updated: 02/24/2014 15:28 CDT ; Life Cycle Status: Active ; Vocabulary: ICD-9-CM ; Comments: - Headache Tic Disorder, Unspecified (ICD-9-CM :307.20 ) Name of Problem: Tic Disorder, Unspecified ; Onset Date: 07/20/2002 ; Confirmation: Confirmed ; Classification: Medical ; Code: 307.20 ; Contributor System: [facility]PL[facility] ; Last Updated: 02/24/2014 15:28 CDT ; Life Cycle Status: Active ; Vocabulary: ICD-9-CM ; Comments: - Tic disorder, unspecified Unspecified Sleep Disturbance (ICD-9-CM :780.50 ) Name of Problem: Unspecified Sleep Disturbance ; Onset Date: 07/04/2003 ; Confirmation: Confirmed ; Classification: Medical ; Code: 780.50 ; Contributor System: [facility] ; Last Updated: 02/24/2014 15:28 CDT ; Life Cycle Status: Active ; Vocabulary: ICD-9-CM ; Comments: - Sleep disturbance, unspecified Diagnoses(Active) General medical Date: 10/30/2014 ; Diagnosis Type: Reason For Visit ; Confirmation: Complaint of ; Clinical Dx: General medical ; Classification: Medical ; Clinical Service: Emergency medicine ; Code: PNED ; Probability: 0 ; Diagnosis Code: [id number] Triage Chief Complaint Description : Pt. states he is having blood in his stool. Has been going on for a while but pt. states he has had the diarrhea and this has made it wirse. Also has lump on testicle thathe states is stuck and becoming painful. Information Given By : Patient Accompanied By : Alone Mode of Arrival ED : Private vehicle Track : Medical Languages : [place] Citizen Patient Informed of Triage Location : Emergency department Treatments Prior to Arrival : None Is Patient Female and 13-50 no hysterectomy : No KRYSTEN POP RN - 10/30/2014 21:00 OBSTETRICS GYNECOLOGY PHYSICIAN Pain Assessment Pain Symptoms : Yes KRYSTEN POP RN 10/30/2014 21:00 OBSTETRICS GYNECOLOGY PHYSICIAN Pain Pain Assessment Grid Pain 1 Location : Other: testicle Laterality : Right Intensity : 6 KRYSTEN POP RN - 10/30/2014 21:00 OBSTETRICS GYNECOLOGY PHYSICIAN BREEZY DCP GENERIC CODE Tracking Acuity : 3 -Urgent Tracking Group : [facility] ED KRYSTEN POP RN 10/30/2014 21:00 OBSTETRICS GYNECOLOGY PHYSICIAN ID Screen Travel Within Last 21 Days : No KRYSTEN POP RN 10/30/2014 21:00 OBSTETRICS GYNECOLOGY PHYSICIAN Respiratory Airway : Patent Respirations : Unlabored Respiratory Pattern : Regular Respiratory Detailed Assessment : Yes KRYSTEN POP RN - 10/30/2014 21:00 OBSTETRICS GYNECOLOGY PHYSICIAN Resp Detailed Breath Sounds Assessment Grid BUL : Clear BLL : Clear KRYSTEN POP RN 10/30/2014 21:00 OBSTETRICS GYNECOLOGY PHYSICIAN Cardiovascular Heart Rhythm : Regular Skin Color : Normal for ethnicity Skin Description : Dry Skin Temperature : Warm KRYSTEN POP RN - 10/30/2014 21:00 OBSTETRICS GYNECOLOGY PHYSICIAN Neurological Last Well Time Known : Not applicable Level of Consciousness : Alert Orientation : Oriented x 3 Characteristics of Speech : Appropriate for age KRYSTEN POP RN 10/30/2014 21:00 OBSTETRICS GYNECOLOGY PHYSICIAN ED Psychosocial Affect/Behavior : Calm Domestic Abuse Concerns : None KRYSTEN POP RN 10/30/2014 21:00 OBSTETRICS GYNECOLOGY PHYSICIAN Gastrointestinal Nutrition ED : Adequate GI Detailed Assessment : Yes KRYSTEN POP RN - 10/30/2014 21:00 OBSTETRICS GYNECOLOGY PHYSICIAN GI Detailed GI Patient Stated Symptoms : Diarrhea Frequency of Diarrhea : every 2 hours Bowel Movement Last Date : 10/30/2014 OBSTETRICS GYNECOLOGY PHYSICIAN Stool Color : Blood-Tinged KRYSTEN POP RN 10/30/2014 21:00 OBSTETRICS GYNECOLOGY PHYSICIAN Bowel Sounds Grid LUQ : Normoactive RUQ : Normoactive LLQ : Normoactive RLQ : Normoactive KRYSTEN POP RN - 10/30/2014 21:00 OBSTETRICS GYNECOLOGY PHYSICIAN Musculoskeletal Fall Prevention Education Provided : NA KRYSTEN POP RN - 10/30/2014 21:00 OBSTETRICS GYNECOLOGY PHYSICIAN Social Habits Tobacco Use/Currently Using : Yes Smoking Status : Current every day smoker KRYSTEN POP RN - 10/30/2014 21:00 OBSTETRICS GYNECOLOGY PHYSICIAN Tobacco Use Grid Cigarette Use Packs/Day : 1 KRYSTEN POP RN 10/30/2014 21:00 OBSTETRICS GYNECOLOGY PHYSICIAN [facility] Document Id: [id number] OBSTETRICS GYNECOLOGY PHYSICIAN!68 ETRICS GYNECOLOGY PHYSICIAN documented in this encounter Miscellaneous Notes Miscellaneous - Yamel Dave R.N. - 10/30/2014 11:04 PM CST Valuables/Belongings Valuables/Belongings Entered On: 10/30/2014 23:04 OBSTETRICS GYNECOLOGY PHYSICIAN Performed On: 10/30/2014 23:04 OBSTETRICS GYNECOLOGY PHYSICIAN by YAMEL DAVE RN Valuables/Belongings Valuables/Belongings Grid Valuables with Patient Clothes, Patient Valuables : Pants, Shirt, Shoes YAMEL DAVE RN - 10/30/2014 23:04 OBSTETRICS GYNECOLOGY PHYSICIAN [facility] Document Id: [id number] OBSTETRICS GYNECOLOGY PHYSICIAN!5 ETRICS GYNECOLOGY PHYSICIAN Yanethcellemile - Yamel Dave R.N. - 10/30/2014 11:03 PM CST Discharge Vital Signs Form Discharge Vital Signs Form Entered On: 10/30/2014 23:03 OBSTETRICS GYNECOLOGY PHYSICIAN Performed On: 10/30/2014 23:03 OBSTETRICS GYNECOLOGY PHYSICIAN by YAMEL DAVE RN Vital Signs Peripheral Pulse Rate : 111 /min (HI) Respiratory Rate : 18 /min Systolic Blood Pressure : 133 mmHg Diastolic Blood Pressure : 76 mmHg NIBP Mean : 95 mmHg Oxygen Therapy : Room air Height : 177.8 cm(Converted to: 5 ft 10 inch(es)) YAMEL DAVE RN - 10/30/2014 23:03 OBSTETRICS GYNECOLOGY PHYSICIAN Source: [facility] [employer] Document Id: [id number] OBSTETRICS GYNECOLOGY PHYSICIAN!9 ETRICS GYNECOLOGY PHYSICIAN Miscellaneous - Cory Salgado M.D. - 10/30/2014 10:53 PM CST Work Excuse 30 October 2014 NOEL GAVIN [address] [facility] [address] Dear NOEL GAVIN, You were examined in my office on: 10/30/14 Reason for work excuse: Medical Illness ( x_ ) Yes ( _ ) No Injury ( _ ) Yes ( x_ ) No Is excused from all work: (x _ ) Yes ( _ ) No Has work limitations: ( _ ) Yes ( _ ) No As follows: _ Limitations apply until: _ Follow-Up Appointment : ( _ ) Return to Work date: _ 11/01/14 Notes: _ Sincerely, CORY SALGDAO [address] [place] [address] Electronic Signature Electronically Signed By: CORY SALGADO MD On: 30 October 2014 This document has images extracted. Source: [employer] Document Id: [id number] Electronically signed by Conversion, [facility] Repair Operator [id number] at 04/27/2017 8:49 PM CDT Miscellaneous - Yamel Dave R.N. - 10/30/2014 8:44 PM CST Facility Charge Ticket 2.0 11.0 DX Facility Charge Ticket 2.0 11.0 DX Entered On: 10/30/2014 23:04 OBSTETRICS GYNECOLOGY PHYSICIAN Performed On: 10/30/2014 20:44 OBSTETRICS GYNECOLOGY PHYSICIAN by YAMEL DAVE RN Facility Charge Ticket 2.0 11.0 DX ED Other Charges : Standard ED Encounter TVL Level Translated RTF : General medical TVL:3 TVL Level for Facility Charge Ticket : Level 3 Arrival Mode Calc : 1 Mode of Arrival ED : Private vehicle [facility] Mode of Arrival Interpreted : Standard [facility] Process Management : None Order Management RTF : Laboratory CBC (includes Auto Differential),10/30/14 21:45,CORY SALGADO MD Completed Comprehensive Metabolic Panel,10/30/14 21:45,CORY SALGADO MD Completed Automated Diff-5 Part,10/30/14 22:05,CORY SALGADO MD Completed [facility] Order Management : Lab tests 30 Minutes Critical Care : No Nursing Notes RTF : Nursing Notes ED Primary Assessment,10/30/14 21:00,KRYSTEN POP RN ED Pain Assessment,10/30/14 23:04,YAMEL DAVE RN [facility] Nursing Assessment : Triage and 1-2 nursing assessments [facility] Disposition : Discharge Disposition RTF : discharge [facility] Total Points with Diagnosis Control : 6 [facility] Visit Level : 85828 Level 3 Treatments Prior to Arrival : None YAMEL DAVE RN - 10/30/2014 23:04 OBSTETRICS GYNECOLOGY PHYSICIAN Source: [facility] [employer] Document Id: [id number] OBSTETRICS GYNECOLOGY PHYSICIAN!19 ETRICS GYNECOLOGY PHYSICIAN documented in this encounter Plan of Treatment Not on filedocumented as of this encounter Procedures Procedure Name Priority Date/Time Associated Comments Diagnosis AUTOMATED Routine 10/30/2014 9:55 PM Results f or this DIFFERENTIAL, B OBSTETRICS GYNECOLOGY PHYSICIAN procedure ar e in the results section. CBC WITH DIFFERENTIAL, Routine 10/30/2014 9:55 PM Results for this B OBSTETRICS GYNECOLOGY PHYSICIAN procedure are i n the results section. COMPREHENSIVE Routine 10/30/2014 9:55 PM Results for this METABOLIC PANEL, S/P OBSTETRICS GYNECOLOGY PHYSICIAN procedu re are in the results section. documented in this encounter Results (ABNORMAL) Automated Differential (10/30/2014 9:55 PM OBSTETRICS GYNECOLOGY PHYSICIAN) Patholo gist Method Time Signature Absolute 9.12 (H) 1.70 - POWERCHART Neutrophils 7.00 109L Monocytes 0.77 0.30 - POWERCHART 0.90 X109L Eosinophils 0.08 0.05 - POWERCHART 0.50 X109L Absolute 0.01 0.00 - POWERCHART Basophil 0.30 X109L Lymphocytes 2.00 0.90 - POWERCHART 2.90 X109L Specimen Anatomical Collection Method Collection Time Receive d Time (Source) Location / / Volume Laterality Blood 10/30/2014 9:55 PM 4 9:55 OBSTETRICS GYNECOLOGY PHYSICIAN PM OBSTETRICS GYNECOLOGY PHYSICIAN Cory Salgado M.D. LAB BLOOD ADD-ON Performing Organization Address City/State/ZIP Code Phon e Number POWERCHART (ABNORMAL) CBC with Differential (10/30/2014 9:55 PM OBSTETRICS GYNECOLOGY PHYSICIAN) Analysis Performed At Patho logist Time Signature Hematocrit 44.6 38.8 - POWERCHART 50.0 Hemoglobin 15.0 13.5 - POWERCHART 17.5 GDL MCV 85.9 81.0 - POWERCHART 95.0 FL Platelet Count 290 150 - 450 POWERCHART X109L Erythrocytes 5.19 4.32 - POWERCHART 5.72 [id number] HX RDW 13.0 11.8 - POWERCHART 15.6 Leukocytes 12.0 (H) 3.5 - 10.5 POWERCHART X109L Specimen (Source) Anatomical Collection Method Collection Time Re ceived Time Location / / Volume Laterality Blood 10/30/2014 9:55 PM OBSTETRICS GYNECOLOGY PHYSICIAN Cory Salgado M.D. LAB BLOOD ADD-ON Performing Organization Address City/State/ZIP Code Phon e Number POWERCHART (ABNORMAL) CMP (Comprehensive Metabolic Panel) (10/30/2014 9:55 PM OBSTETRICS GYNECOLOGY PHYSICIAN) [facility] gist Method Time Signature Anion Gap 13 10 - 20 POWERCHART MMOLL Alkaline 91 45 - 115 POWERCHART Phosphatase, S UL Alanine <5 (L) 7 - 55 UL POWERCHART Amniotransferase, LD Aspartate 25 8 - 48 UL POWERCHART Aminotransferase (AST), S Bilirubin, Total, S 0.6 0.1 - 1.0 POWERCHART MGDL BUN (Blood Urea 9 8 - 24 POWERCHART Nitrogen), S MGDL Chloride, S 101 98 - 107 POWERCHART MMOLL CO2 Total 26 22 - 29 POWERCHART MMOLL Creatinine 0.96 0.80 - POWERCHART 1.30 MGDL Total Protein, S 7.4 6.3 - 7.9 POWERCHART GDL Glucose 101 70 - 140 POWERCHART MGDL Calcium, Total, S 9.8 8.6 - POWERCHART 10.3 MGDL Sodium, S 140 135 - 145 POWERCHART MMOLL Potassium, S 3.9 3.5 - 5.1 POWERCHART MMOLL Albumin, S 4.4 3.5 - 5.0 POWERCHART GDL HXeGFR (MDRD) >60 >=60 POWERCHART [id number] 2 Comment: Results are in mL/min/1.73m CKD Stage I: ? GFR > 90 CKD Stage II: ?GFR 60 to 89 CKD Stage III: ? GFR 30 to 59 CKD Stage IV: ? GFR 15 to 29 CKD Stage V: ?GFR < 15 or Dialysi s eGFR Black/ >60 >=60 [id number] POWERCHART Specimen (Source) Anatomical Collection Method Collection Time Re ceived Time Location / / Volume Laterality Blood 10/30/2014 9:55 PM OBSTETRICS GYNECOLOGY PHYSICIAN Cory Salgado M.D. LAB BLOOD ADD-ON Performing Organization Address City/State/ZIP Code Phon e Number POWERCHART documented in this encounter Visit Diagnoses Not on filedocumented in this encounter
--- OUTSIDE RECORDS SUMMARY | 2022-09-25 11:03 | XMS_ITS | Encounter Summary ---
:1990 Author Organization [facility] Address [address] [place] [address] Care Team Providers Name Role Phone Unavailable Primary Care Provider Unavailable Encounter Details Date Type Department Care Team Description 10/21/2009 Hospital Encounter HX [facility] Bebeto Barnhart O.D. Social History Tobacco Use Types Packs/Day Years [...] documented as of this encounter Miscellaneous Notes Miscellaneous - Conversion, Historical Provider Ser - 10/21/2009 12:00 AM [employer] [id number] John Gavin [id number] [place] [id number] October 21, 2009 Dear John Gavin: Our records indicate that you are due for the following appointment: TWO YEAR EYE EXAM Please call us to make an appointment at your convenience. Our telephone number for scheduling an appointment is [phone]. If you have already made an appointment for this or have had the proceduredone, please disregard this notice. We look forward to seeing you soon. Sincerely, Bebeto Faulkner O.D./lilyp Ophthalmology Department [facility] Document Id: [id number] documented in this encounter Plan of Treatment Not on filedocumented as of this encounter Visit Diagnoses Not on filedocumented in this encounter
--- OUTSIDE RECORDS SUMMARY | 2022-09-25 11:03 | XMS_ITS | Encounter Summary ---
:1990 Author Organization [facility] Address [address] [place] [address] Care Team Providers Name Role Phone Unavailable Primary Care Provider Unavailable Encounter Details Date Type Department Care Team Description 07/10/2013 Hospital Encounter HX [facility] Provider, Historic al Social History Tobacco Use Types Packs/Day Years [...]
--- OUTSIDE RECORDS SUMMARY | 2022-09-25 11:03 | XMS_ITS | Encounter Summary ---
:1990 Author Organization [facility] Address [address] [place] [address] Care Team Providers Name Role Phone Unavailable Primary Care Provider Unavailable Encounter Details Date Type Department Care Team Description 03/10/2012 Hospital Encounter HX NO MAPPING Provider, Historical Social History Tobacco Use Types Packs/Day Years [...] documented as of this encounter Progress Notes Danitza Dobbs P.A. - 03/10/2012 2:00 PM CDT [id number] SUBJECTIVE: Royal is a 21-year-old male who [...] for albuterol inhaler. Doxycycline as prescribed in [facility]. He prefers something on the $[address] [facility] for insurance reasons. Encouraged supportive care measures at home, fluids, rest, ibuprofen and Tylenol for discomfort. Uqzh-lze-asflwsq Robitussin or Mucinex for cough. I did [...] in agreement with this plan. WICHO Weiss/caesar [facility] Document Id: [id number] Polly Wood, D.O. - 03/10/2012 2:00 PM CDT [id number] Addended by: POLLY WOOD on: 03/11/2012 Modules accepted: Orders Source: [facility] Document Id: [id number] Electronically signed by Conversion, [facility] Folder Hand [id number] at 05/01/2017 12:05 PM CDT documented in this encounter Plan of Treatment Not on filedocumented as of this encounter Visit Diagnoses Not on filedocumented in this encounter
--- OUTSIDE RECORDS SUMMARY | 2022-09-25 11:03 | XMS_ITS | Encounter Summary ---
:1990 Author Organization [facility] Address [address] [place] [address] Care Team Providers Name Role Phone Unavailable Primary Care Provider Unavailable Encounter Details Date Type Department Care Team Description 02/19/2009 Hospital Encounter HX [facility] Ra osmany Holliday PShivam [address] [place] [phone] (Wo rk) Social History Tobacco Use Types [...] documented as of this encounter Progress Notes Cora Holliday, P.A.-C. - 02/19/2009 2:40 PM CDT [id number] SUBJECTIVE: John is a 18 year old [...] Diagnoses Code Name Primary? 462Y Pharyngitis Yes 461.9M Sinusitis Acute PLAN: Per orders. Supportive and symptomatic cares discussed and encouraged. Source[facility] Document Id: [id number] documented in this encounter Plan of Treatment Not on filedocumented as of this encounter Visit Diagnoses Not on filedocumented in this encounter
--- OUTSIDE RECORDS SUMMARY | 2022-09-25 11:03 | XMS_ITS | Encounter Summary ---
:1990 Author Organization [facility] Address [address] [place] [address] Care Team Providers Name Role Phone Unavailable Primary Care Provider Unavailable Encounter Details Date Type Department Care Team Description 07/07/2014 Hospital Encounter HX NO MAPPING Ely Baker P.A.-C., P.A. [address] [place] [address] [phone] (Wo rk) Social History Tobacco [...] Sign Reading Time Taken Comments Blood Pressure 128/67 07/07/2014 9:01 AM CDT Pulse 82 07/07/2014 9:01 AM CDT Temperature - - Respiratory Rate - - Oxygen Saturation - - Inhaled Oxygen Concentration - - Weight - - Height - - Body Mass Index - - documented in this encounter Discharge Summaries Brooke Sotelo L.P.NJaciel - 07/07/2014 9:51 AM CDT ED Discharge Instructions [facility] [address] [facility]. [place], [place] [id number] Name: JOHN GAVIN Date of : 1990 12:00 AM Visit Date: 07/07/2014 8:45 AM [facility] Number: [id number] Address: [address] [facility] [id number] Primary Care Provider: REGGIE RIVAS MD IMPORTANT: [facility] in [place] would like to thank you for allowing us to assist you with your healthcare needs. The following includes patient education materials and information regarding your injury/illness. Diagnosis: Vomiting NOS Follow-Up Instructions: With: Address: When: Follow up with primary care provider Within As Needed Comments: Call for follow up appointment With: Address: When: REGGIE RIVAS [address] [place] [address] Swish (1) Within As Needed Comments: Your Upcoming Appointments: Date Time Location Reason Provider No Appointments found Patient Education Materials: [id number] VOMITING [8yr-Adult] Vomiting is a common symptom that may be due to different causes. These include gastroenteritis (stomach flu), food poisoning and gastritis. There are other more serious causes of vomiting which may be hard to diagnose early in the illness. Therefore, it is important to watch for the warning signs listed below. The main danger from repeated vomiting is dehydration. This is due to excess loss of water and minerals from the body. When this occurs, body fluids must be replaced. HOME CARE: ?? If symptoms are severe, rest at home for the next 24 hours. ?? You may use acetaminophen (Tylenol) or ibuprofen (Motrin, Advil) to control fever, unless anothermedicine was prescribed. [NOTE : If you have chronic liver or kidney disease or ever had a stomach ulcer or GI bleeding, talk with your doctor before using these medicines.] (Aspirin should never be used in anyone under 18 years of age who is ill with a fever. It may cause severe liver damage.) ?? Avoid tobacco and alcohol use, which may worsen your symptoms. ?? If medicines for vomiting were prescribed, take as directed. ?? Once vomiting stops, then follow these guidelines: DURING THE FIRST 12-24 HOURS follow the diet below: ?? FRUIT JUICES: Apple, grape juice, clear fruit drinks, and electrolyte replacement drinks. ?? BEVERAGES: Soft drinks without caffeine; mineral water (plain or flavored), decaffeinated tea andcoffee. ?? SOUPS: Clear broth, consomm?? and bouillon ?? DESSERTS: Plain gelatin, popsicles and fruit juice bars. As you feel better, you may add 6-8 ounces of yogurt per day. DURING THE NEXT 24 HOURS you may [...] not improving over the next 2-3 days. GET PROMPT MEDICAL ATTENTION if any of the following occur: ?? Constant right-sided lower abdominal pain or increasing general abdominal pain ?? Continued vomiting (unable to keep liquids down) for 24 hours ?? Frequent diarrhea (more than 5 times a day); blood (red or black color) or mucus in diarrhea ?? Reduced urine output or extreme thirst ?? Weakness, dizziness or fainting ?? Unusually drowsy or confused ?? Fever of 100.4??F (38??C) oral or higher, not better with fever medication Yellow color of the eyes or skin ?? [id number] [facility], [address] [place] [address]. All rights reserved. This information is not intended as a substitute for professional medical care. Always follow your healthcare professional's instructions. ED Tests and Procedures: Order Status Automated Diff-5 Part Completed Basic Metabolic Panel Completed CBC (includes Auto Differential) Completed Discharge Prescriptions & Home Medications: Medication/Strength Dose Route Frequency Indications/Special Instructions/Comments/Notes ondansetron (Zofran 4 mg oral tablet) 4 mg Oral every 8 hours *cyclobenzaprine (cyclobenzaprine 5 mg oral tablet) 5 mg Oral three times a day as needed for Musclespasm *methylPREDNISolone (methylPREDNISolone 4 mg oral tablet) See Instructions Follow package instructions *amoxicillin-clavulanate (amoxicillin-clavulanate 875 mg-125 mg oral tablet) 1 tab(s) Oral two timesa day *OXcarbazepine (OXcarbazepine 600 mg oral tablet) 300 [...] information about how to take those medications. JOHN GAVIN or corey has reviewed the home [...] with a responsible democrat. I, JOHN GAVIN , or responsible democrat have received this information and my questions have been answered. I have discussed any challenges I see with this plan with the nurse or physician. Patient Signature or Responsible Democrat/Relationship Date Time Provider Signature Date Time Medication Reconciliation: Reconciliation is a process of identifying the most accurate list of all medications a patient is taking - including name, dosage, frequency, and route - and using this list to provide to the patient information about how to take those medications. JOHN GAVIN or corey has reviewed the home [...] with a responsible democrat. I, JOHN GAVIN SYLVESTER , or responsible democrat have received this information and my questions have been answered. I have discussed any challenges I see with this plan with the nurse or physician. Patient Signature or Responsible Democrat/Relationship Date Time Provider Signature Date Time Source: [employer] POWERCHART Document Id: [id number] Brooke Sotelo L.P.N. - 07/07/2014 9:51 AM CDT ED Depart Summary [facility] Emergency Department Clinical Discharge Summary PERSON INFORMATION Name JOHN GAVIN Age 23 Years 1990 12:00 AM Sex Male Language Vincentian PCP REGGIE RIVAS MD Marital Status Single Visit Id Visit Reason Vomiting; vomiting Specialty Enc Type Hospital Outpatient Med Service Urgent Care Referred by Track Group [facility] ED Discharge 07/07/2014 9:51 AM Tracking Id [id number] Checkout 07/07/2014 9:51 AM Checkin 07/07/2014 8:45 AM Acuity 3 -Urgent Dispo Type * Discharged to Home or Self Care Arrival 07/07/2014 8:45 AM Reg Status Complete LOS 000 01:06 Address: [address] [place] [phone] Comment: PROVIDER INFORMATION Provider Role Provider Contact Time GERMAN AGUILAR LPN ED Nurse 07/07/14 09:01 ELY BAKER ED Provider 07/07/14 09:08 DIAGNOSIS Vomiting NOS Comment: PATIENT EDUCATION INFORMATION Instructions: VOMITING (8y-Adult) Follow up: With: Address: When: Follow up with primary care provider Within As Needed Comments: Call for follow up appointment With: Address: When: REGGIE RIVAS [address] [place], [place] [phone] [facility] (1) Within As Needed Comments: Source: [facility] POWERCHART Document Id: [id number] documented in this encounter Progress Notes Ely Baker P.A.-C. - 07/07/2014 8:45 AM CDT [id number] A 23-year-old male presents to the Urgent Care today complaining of vomiting since yesterday. He wasat work, where he was lifting boxes and working with some Saran Wrap which puts heat out from the machine itself, and felt dizzy, lightheaded and started throwing up. The detective supervisor sent him home for the day. Continued throwing up throughout the night as well as today. He denies really any abdominal pain, except in the epigastric area he states from throwing up. No fevers or chills, he believes. No more headache or dizziness. PHYSICAL EXAMINATION VITAL SIGNS: As noted in [employer]ner. GENERAL: Pleasant male sitting in exam room, in no apparent distress, with appropriate affect. He appears to be well hydrated. ABDOMEN: Soft. I cannot appreciate any discomfort to palpation. No McBurney's point tenderness. CARDIAC: Regular rate and rhythm. LUNGS: Sounds clear to auscultation. BLOOD PRESSURE: Normal orthostatic blood pressures. THROAT: No posterior erythema, exudates or lesions. DIAGNOSTICS Basic metabolic panel and CBC taken. CBC with a slight elevated white count. I suspect this may be from smoking, which he asked to leave and did so to smoke a cigarette and come back to the exam room, as well as vomiting. IMPRESSION/REPORT/PLAN Vomiting. I believe this may be secondary to some heat exhaustion which we are going to treat with Zofran, as I believe he can stand some oral fluids. If he cannot still keep this down, I recommend himto return to the Urgent Care for further evaluation and treatment, or if he develops fevers or abdominal pain. Ely Baker P.A.-C./magaly Electronically Signed By: ELY BAKER On: 07/08/2014 04:31 PM Source: [facility] [id number] Document Id: [id number] documented in this encounter H&P Notes German Aguilar L.P.N. - 07/07/2014 9:01 AM CDT Urgent Care Intake Urgent Care Intake Entered On: 07/07/2014 9:05 CDT Performed On: 07/07/2014 9:01 CDT by GERMAN AGUILAR LPN Intake Chief Complaint : Patient stated he became over heated at work yesterday and became light headed andvomited x 2. Onset of Symptoms : yesterday Temperature Core : 36.7 DegC(Converted to: 98.1 DegF) Peripheral Pulse Rate : 82 /min Systolic Blood Pressure : 128 mmHg Diastolic Blood Pressure : 67 mmHg NIBP Mean : 87 mmHg SpO2 : 98 % GERMAN AGUILAR [facility] - 07/07/2014 9:01 CDT General Info Information Given By : Patient Languages : Vincentian Is Patient Female and 13-50 no hysterectomy : No GERMAN AGUILAR [facility] - 07/07/2014 9:01 CDT Subjective Pain Symptoms : No DERRELL GERMAN M [facility] - 07/07/2014 9:01 CDT Dependent Habits Tobacco Use/Currently Using : No Smoking Status : Never smoker ARIESSAMPSON VUTANYA Valerio [facility] - 07/07/2014 9:01 CDT Nutrition Nutrition Risk Factors by History Adult : None SAMPSON AGUILARTANYA Valerio [facility] - 07/07/2014 9:01 CDT Functional Current Daily Living Assistance : None DERRELL GERMAN Valerio [facility] - 07/07/2014 9:01 CDT Psychosocial Domestic Abuse Concerns : None Zoroastrian Preference : No qualifying data available. DERRELL GERMAN Valerio [facility] - 07/07/2014 9:01 CDT Advance Directive Advanced Directives : Nelly DERRELL GERMAN Valerio [facility] - 07/07/2014 9:01 CDT Educ Needs Learning Style Preference Adult Grid Patient : None Family : None ARIESHORACE GERMAN M [facility] - 07/07/2014 9:01 CDT Source: [employer] Document Id: [id number] CDT!32 documented in this encounter ED Notes Brooke Sotelo LJacielP.NJaciel - 07/07/2014 9:51 AM CDT ED Disposition Summary ED Disposition Summary Entered On: 07/07/2014 9:51 CDT Performed On: 07/07/2014 9:51 CDT by BROOKE SOTELO LPN ED Disposition Summary Printed Discharge Instructions Given to Patient : Yes BROOKE SOTELO LPN - 07/07/2014 9:51 CDT Source: [employer] Document Id: [id number] CDT!3 Conversion, Historical Provider Ser - 07/07/2014 8:46 AM CDT ED Triage Assessment Document Has Been Updated ED Triage Assessment Entered On: 07/07/2014 8:47 CDT Performed On: 07/07/2014 8:46 CDT by MIC SHAFER RN Reason For Visit (As Of: 07/07/2014 08:47:40 CDT) Problems(Active) Attention Deficit Disorder of Childhood with Hyperactivity (ICD-9-CM :314.01 ) Name of Problem: Attention Deficit Disorder of Childhood with Hyperactivity ; Onset Date: 06/08/2001 ; Confirmation: Confirmed ; Classification: Medical ; Code: 314.01 ; Contributor System: [facility]_HX_PR_UPLOAD ; Last Updated:02/24/2014 15:28 CDT ; Life Cycle Status: Active ; Vocabulary: ICD-9-CM ; Comments: - Attention deficit disorder with hyperactivity Bipolar I Disorder, Most Recent Episode (Or Current) Unspecified (ICD-9-CM :296.7 ) Name of Problem:Bipolar I Disorder, Most Recent Episode (Or Current) Unspecified ; Onset Date: 01/07/2006 ; Confirmation: Confirmed ; Classification: Medical ; Code: 296.7 ; Contributor System: [facility]_HX_PR_UPLOAD ; Last Updated: 02/24/2014 15:28 CDT ; Life Cycle Status: Active ; Vocabulary: ICD-9-CM ; Comments: - Bipolar I disorder, most recent episode (or current) unspecified Constipation, Unspecified (ICD-9-CM :564.00 ) Name of Problem: Constipation, Unspecified ; Onset Date: 03/12/2004 ; Confirmation: Confirmed ; Classification: Medical ; Code: 564.00 ; Contributor System: RW_HX_PR_UPLOAD ; Last Updated: 02/24/2014 15:28 CDT ; Life Cycle Status: Active ; Vocabulary: ICD-9-CM ; Comments: - Unspecified constipation Headache (ICD-9-CM :784.0 ) Name of Problem: Headache ; Onset Date: 06/08/2001 ; Confirmation: Confirmed ; Classification: Medical ; Code: 784.0 ; Contributor System: [facility]_HX_PR_UPLOAD ; Last Updated: 02/24/2014 15:28 CDT ; Life Cycle Status: Active ; Vocabulary: ICD-9-CM ; Comments: - Headache Tic Disorder, Unspecified (ICD-9-CM :307.20 ) Name of Problem: Tic Disorder, Unspecified ; Onset Date: 07/20/2002 ; Confirmation: Confirmed ; Classification: Medical ; Code: 307.20 ; Contributor System: [facility]_HX_PR_UPLOAD ; Last Updated: 02/24/2014 15:28 CDT ; Life Cycle Status: Active ; Vocabulary: ICD-9-CM ; Comments: - Tic disorder, unspecified Unspecified Sleep Disturbance (ICD-9-CM :780.50 ) Name of Problem: Unspecified Sleep Disturbance ; Onset Date: 07/04/2003 ; Confirmation: Confirmed ; Classification: Medical ; Code: 780.50 ; Contributor System: [facility]_HX_PR_UPLOAD ; Last Updated: 02/24/2014 15:28 CDT ; Life Cycle Status: Active ; Vocabulary: ICD-9-CM ; Comments: - Sleep disturbance, unspecified Diagnoses(Active) Vomiting Date: 07/07/2014 ; Diagnosis Type: Reason For Visit ; Confirmation: Complaint of ; ClinicalDx: Vomiting ; Classification: Medical ; Clinical Service: Emergency medicine ; Code: PNED ; Probability: 0 ; Diagnosis Code: [id number] Triage Chief Complaint Description : Yesterday got too warm and felt like he was going to pass out, was also vomiting.Continues to vomit today. Information Given By : Patient Accompanied By : Friend Mode of Arrival ED : Private vehicle Track : Medical Languages : Vincentian Patient Informed of Triage Location : Urgent Care Is Patient Female and 13-50 no hysterectomy : No Treatments Prior to Arrival : None MIC SHAFER RN - 07/07/2014 8:46 CDT Pain Assessment Pain Symptoms : Yes MIC SHAFER RN - 07/07/2014 8:46 CDT Pain Pain Assessment Grid Pain 1 Location : Abdomen Intensity : 5 MIC SHAFER RN - 07/07/2014 8:46 CDT BREEZY DCP GENERIC CODE Tracking Acuity : 3 -Urgent Tracking Group : [facility] ED MIC SHAFER RN - 07/07/2014 8:46 CDT Source: [employer] Document Id: [id number] CDT!22 documented in this encounter Plan of Treatment Not on filedocumented as of this encounter Procedures Procedure Name Priority Date/Time Associated Diagnosis Comme nts AUTOMATED Routine 07/07/2014 9:20 AM Results f or this DIFFERENTIAL, B CDT procedure ar e in the results section. CBC WITH Routine 07/07/2014 9:20 AM Results f or this DIFFERENTIAL, B CDT procedure ar e in the results section. BASIC METABOLIC Routine 07/07/2014 9:20 AM Result s for this PANEL, S/P CDT procedure are i n the results section. documented in this encounter Results (ABNORMAL) Automated Differential (07/07/2014 9:20 AM CDT) [facility] Method Time Signature Absolute 8.47 (H) 1.70 - POWERCHART Neutrophils 7.00 109L Monocytes 0.72 0.30 - POWERCHART 0.90 X109L Eosinophils 0.14 0.05 - POWERCHART 0.50 X109L Absolute 0.05 0.00 - POWERCHART Basophil 0.30 X109L Lymphocytes 1.26 0.90 - POWERCHART 2.90 X109L Specimen Anatomical Collection Method Collection Time Receive d Time (Source) Location / / Volume Laterality Blood 07/07/2014 9:20 AM 4 9:20 CDT AM CDT Ely Baker P.A.-C., P.A. LAB BLOOD ADD-ON Performing Organization Address City/State/ZIP Code Phon e Number POWERCHART (ABNORMAL) CBC with Differential (07/07/2014 9:20 AM CDT) Analysis Performed At [facility] Time Signature Hematocrit 45.1 38.8 - POWERCHART 50.0 Hemoglobin 15.6 13.5 - POWERCHART 17.5 GDL MCV 87.1 81.0 - POWERCHART 95.0 FL Platelet Count 286 150 - 450 POWERCHART X109L Erythrocytes 5.18 4.32 - POWERCHART 5.72 [id number] HX RDW 12.9 11.8 - POWERCHART 15.6 Leukocytes 10.6 (H) 3.5 - 10.5 POWERCHART X109L Specimen (Source) Anatomical Collection Method Collection Time Re ceived Time Location / / Volume Laterality Blood 07/07/2014 9:20 AM CDT Ely Baker P.A.-C., P.A. LAB BLOOD ADD-ON Performing Organization Address City/State/ZIP Code Phon e Number POWERCHART (ABNORMAL) BMP (Basic Metabolic Panel) (07/07/2014 9:20 AM CDT) P athologist Signature Chloride, S 103 98 - 107 POWERCHART MMOLL Sodium, S 140 135 - 145 POWERCHART MMOLL Potassium, S 4.5 3.6 - 5.2 POWERCHART MMOLL Anion Gap 6 (L) 10 - 20 POWERCHART MMOLL BUN (Blood Urea 12 8 - 24 POWERCHART Nitrogen), S MGDL CO2 Total 31 (H) 22 - 29 POWERCHART MMOLL Creatinine 0.87 0.80 - POWERCHART 1.30 MGDL Glucose 100 70 - 140 POWERCHART MGDL Calcium, Total, 9.4 8.6 - 10.3 POWERCHART S MGDL eGFR >60 >=60 POWERCHART Black/ [id number] [place] HXeGFR (MDRD) >60 >=60 POWERCHART [id number] Comment: Results are in mL/min/1.73m CKD Stage I: ? GFR > 90 CKD Stage II: ?GFR 60 to 89 CKD Stage III: ? GFR 30 to 59 CKD Stage IV: ? GFR 15 to 29 CKD Stage V: ?GFR < 15 or Dialysi s Specimen (Source) Anatomical Collection Method Collection Time Re ceived Time Location / / Volume Laterality Blood 07/07/2014 9:20 AM CDT Ely Baker P.A.-C., P.A. LAB BLOOD ADD-ON Performing Organization Address City/State/ZIP Code Phon e Number POWERCHART documented in this encounter Visit Diagnoses Not on filedocumented in this encounter
--- OUTSIDE RECORDS SUMMARY | 2022-09-25 11:03 | XMS_ITS | Encounter Summary ---
:1990 Author Organization [facility] Address [address] [place] [address] Care Team Providers Name Role Phone Unavailable Primary Care Provider Unavailable Encounter Details Date Type Department Care Team Description 08/20/2008 Hospital Encounter HX [facility] Maci Osuna M.D. Social History Tobacco Use Types Packs/Day Years [...] of this encounter Progress Notes Mariely Osuna M.D. - 08/20/2008 10:50 AM CDT [id number] SUBJECTIVE: Sudden onset of sore throat for [...] 48 to 72 hours or other concerns. Source: [facility] RWMCHXTRANSXRTFSYS Document Id: [id number] documented in this encounter Plan of Treatment Not on filedocumented as of this encounter Visit Diagnoses Not on filedocumented in this encounter
--- OUTSIDE RECORDS SUMMARY | 2022-09-25 11:03 | XMS_ITS | Encounter Summary ---
:1990 Author Organization [facility] Address [address] [place] [address] Care Team Providers Name Role Phone Unavailable Primary Care Provider Unavailable Encounter Details Date Type Department Care Team Description 04/11/2009 Hospital Encounter HX [facility] Maci Osuna M.D. Social History [...] encounter Progress Notes Mariely Osuna M.D. - 04/11/2009 11:10 AM CDT [id number] CLINIC ENCOUNTER SUBJECTIVE: Royal Gavin is in [...] time is 25 minutes. Mariely Osuna M.D. MND/law cc: Source[facility] Document Id: [id number] Electronically signed by Conversion, [facility] [employer]aking [employer]der [employer]er [id number] at 05/02/2017 4:13 PM JAGJITT Mariely Osuna M.D. - 04/11/2009 11:10 AM CDT [id number] SUBJECTIVE: Sudden onset of sore throat for [...] referred to provider - Yes Katheryn Hobbs [facility] Document Id: [id number] Electronically signed by Conversion, [facility] Baking Pow[employer]er [id number] at 05/02/2017 4:13 PM CDT Mariely Osuna M.D. - 04/11/2009 11:10 AM CDT [id number] Insert dictation. Source: [facility] Document Id: [id number] Electronically signed by Conversion, [facility] Baking Pow[employer]er [id number] at 05/02/2017 4:13 PM CDT documented in this encounter Plan of Treatment Not on filedocumented as of this encounter Visit Diagnoses Not on filedocumented in this encounter
--- OUTSIDE RECORDS SUMMARY | 2022-09-25 11:03 | XMS_ITS | Encounter Summary ---
:1990 Author Organization [facility] Address [address] [place] [address] Care Team Providers Name Role Phone Unavailable Primary Care Provider Unavailable Encounter Details Date Type Department Care Team Description 04/24/2012 Hospital Encounter HX NO MAPPING Emanuel Gandhi M.D. [address] [place], [place] [phone] (Wo rk) Social History [...]
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
--- OUTSIDE RECORDS SUMMARY | 2022-09-25 11:03 | XMS_ITS | Encounter Summary ---
:1990 Author Organization [facility] Address [address] [place] [address] Care Team Providers Name Role Phone Unavailable Primary Care Provider Unavailable Encounter Details Date Type Department Care Team Description 08/05/2012 Hospital Encounter HX [facility] Naeem Banerjee M.D. [address] [place], [place] [address] (Wo rk) Social History [...] documented as of this encounter Progress Notes Monster Banerjee M.D. - 08/05/2012 9:50 AM CDT [id number] This office note has been dictated. Source[facility] Document Id: [id number] Monster Banerjee M.D. - 08/05/2012 9:50 AM CDT [id number] CLINIC ENCOUNTER Patient presents today with abdominal [...] the tinea. Monster Banerjee M.D. NICK/lawrence cc: Source: [facility] RWMCHXTRANSXRTFSYS Document Id: [id number] Electronically signed by Conversion, [facility] Cinder Pit Worker [id number] at 05/01/2017 4:07 PM CDT documented in this encounter Plan of Treatment Not on filedocumented as of this encounter Procedures Procedure Name Priority Date/Time Associated Comments Diagnosis HX SN - SPEC - Routine 08/08/2012 2:46 PM Results for this DESCRIPTION CDT procedure are i n the results section. HX CHLAMYDIA Routine 08/08/2012 2:46 PM Results f or this TRACHOMATIS AMPLIFIED CDT proced ure are in DNA-ID the results section. documented in this encounter Results HX CHLAMYDIA TRACHOMATIS AMPLIFIED DNA-ID (08/08/2012 2:46 PM CDT) Specimen (Source) Anatomical Collection Method Collection Time Re ceived Time Location / / Volume Laterality 08/08/2012 2:46 PM CDT Narrative [facility] - 01/29/20 14 8:15 PM PATIENT SERVICES MANAGER Negative for C. trachomatis rRNA by buyer assistant mediated amplification. A negative result by buyer assistant media cinthia amplification does not preclude the presence of C. trachomatis infection bec ause results are dependent on proper and adequate collection, absence of inhi bitors, and sufficient rRNA to be detected. Historical Provider LAB HISTORICAL ORDERS Performing Organization Address City/[facility]/ZIP Code Phon e Number [facility] HX SN - SPEC - DESCRIPTION (08/08/2012 2:46 PM CDT) P athologist Signature HXSPECIMAN Urine [facility] Specimen (Source) Anatomical Collection Method Collection Time Re ceived Time Location / / Volume Laterality 08/08/2012 2:46 PM CDT Historical Provider LAB HISTORICAL ORDERS Performing Organization Address City/State/ZIP Code Phon e Number [facility] documented in this encounter Visit Diagnoses Not on filedocumented in this encounter
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
--- OUTSIDE RECORDS SUMMARY | 2022-09-25 11:03 | XMS_ITS | Encounter Summary ---
:1990 Author Organization [facility] Address [address] [place] [address] Care Team Providers Name Role Phone Unavailable Primary Care Provider Unavailable Encounter Details Date Type Department Care Team Description 02/22/2008 Hospital Encounter HX [facility] Dana Alvarez D.PJacielM. [address] [place] [phone] (Wo rk) Social History Tobacco Use Types [...] as of this encounter Progress Notes Dana Trujillo D.P.M. - 02/22/2008 8:45 AM CDT [id number] SUBJECTIVE: John is a 17 year old male presenting for laser of warts. Family History Problem Relation Neurological Mother migraine headaches Neurological Paternal Grandmother migraine headaches Depression Father Committed suicide Psychiatry Father Mental illness Alcohol/Drug Paternal family with history of depression,alcohol, drugs & social abuse Respiratory Paternal Grandfather Emphysema Hypertension Paternal Grandmother Heart Paternal Grandmother Heart [place], [place] Respiratory Father Asthma Respiratory Mother Asthma Respiratory Brother Asthma Eye Maternal Uncle GLAUCOMA Eye Maternal Grandmother CATARACTS OBJECTIVE: There were no vitals taken for this visit. Patient is alert and orientated to time, placeand person. Dermatological: Lower extremity shows positive for warts. Location of lesion(s) sole of right and left foot. Number of lesion(s) <15. ASSESSMENT: Encounter Diagnoses Code Name Primary? Qualifier 078.19 OTHER SPECIFIED VIRAL WARTS Yes PLAN: [...] voiced understanding to information discussed this visit. Source: [facility] DUKEMCHXTRANSXRTFSYS Document Id: [id number] documented in this encounter Plan of Treatment Not on filedocumented as of this encounter Visit Diagnoses Not on filedocumented in this encounter
--- OUTSIDE RECORDS SUMMARY | 2022-09-25 11:03 | XMS_ITS | Encounter Summary ---
:1990 Author Organization [facility] Address [address] [place] [address] Care Team Providers Name Role Phone Unavailable Primary Care Provider Unavailable Encounter Details Date Type Department Care Team Description 02/14/2010 Hospital Encounter [facility] Maci Osuna M.D. Social History [...] encounter Progress Notes Mariely Osuna M.D. - 02/14/2010 2:40 PM CDT [id number] CLINIC ENCOUNTER John Gavin is in with [...] prescription treatment for acne. He has used [id number] benzoyl peroxide in the past without effect. [...] provided. Albuterol inhaler to use as needed. Andrew Minor/tenzin cc: Source: [facility] Document Id: [id number] Electronically signed by Conversion, [facility] Hot Top Liner Helper [id number] at 05/02/2017 9:55 AM CDT Mariely Osuna M.D. - 02/14/2010 2:40 PM CDT [id number] Insert dictation. Source: [facility] Document Id: [id number] Electronically signed by Conversion, [facility] Hot Top Liner Helper [id number] at 05/02/2017 9:55 AM CDT documented in this encounter Plan of Treatment Not on filedocumented as of this encounter Visit Diagnoses Not on filedocumented in this encounter
--- OUTSIDE RECORDS SUMMARY | 2022-09-25 11:03 | XMS_ITS | Encounter Summary ---
:1990 Author Organization [facility] Address [address] [place] [address] Care Team Providers Name Role Phone Unavailable Primary Care Provider Unavailable Encounter Details Date Type Department Care Team Description 01/30/2014 Hospital Encounter HX [facility] EHW Provider, Historic al Social History Tobacco [...]
--- OUTSIDE RECORDS SUMMARY | 2022-09-25 11:03 | XMS_ITS | Encounter Summary ---
:1990 Author Organization [facility] Address [address] [place] [address] Care Team Providers Name Role Phone Unavailable Primary Care Provider Unavailable Encounter Details Date Type Department Care Team Description 08/16/2013 Hospital Encounter HX NO MAPPING Lalo Pederson P.ATrell [address] [place], [place] [phone] (Wo rk) Social History [...] documented as of this encounter Progress Notes Althea Pederson PJacielAJaciel-C. - 08/16/2013 12:15 PM CDT [id number] CHIEF COMPLAINT: Bronchitis. HISTORY OF CHIEF COMPLAINT: [...] worse, he will follow up. SADIE Martinez/lawrence [facility]: [facility] Document Id: [id number] Electronically signed by Conversion, [facility] [place] [facility] Electronic Component Processor [id number] at 04/26/2017 5:29 PM CDT documented in this encounter Miscellaneous Notes Miscellaneous - Althea Pederson P.A.-C. - 08/16/2013 12:[id number] [facility] [address] [place] [address] August 16, 2013 John Gavin [id number] [facility] [address] To whom it may concern: RE: John Gavin Patient was seen and treated today at our clinic and missed work. Please contact me for questions or concerns. Sincerely, WICHO Zarco Source: [facility] Document Id: [id number] Electronically signed by Conversion, [facility] [place] [facility] Electronic Component Processor [id number] at 04/26/2017 5:29 PM CDT documented in this encounter Plan of Treatment Not on filedocumented as of this encounter Visit Diagnoses Not on filedocumented in this encounter
--- OUTSIDE RECORDS SUMMARY | 2022-09-25 11:03 | XMS_ITS | Encounter Summary ---
:1990 Author Organization [facility] Address [address] [place] [address] Care Team Providers Name Role Phone Unavailable Primary Care Provider Unavailable Encounter Details Date Type Department Care Team Description 10/02/2015 Hospital Encounter [facility] ED Cory Ivy M.D. [address] [place] [phone] (Wo rk) Social History Tobacco [...] PM CDT documented as of this encounter Discharge Summaries Katherine Pop - 10/02/2015 6:21 PM CST ED Discharge Instructions [address] [place] [address] Name: NOEL GAVIN Date of : 1990 12:00 AM Visit Date: 10/02/2015 6:15 PM [facility] Number: [id number] Address: [address] [facility] [address] Primary Care Provider: REGGIE RIVAS MD IMPORTANT: [facility] in [place] would like to thank you for allowing us to assist you with your healthcare needs. The following includes patient education materials and information regarding your injury/illness. Diagnosis: Follow-Up Instructions: Your Upcoming Appointments: Date Time [...] you dont have one. Go to [email or web address] and click on Create Your Account. Then, follow the directions to complete the online form. Youll be asked for your [facility] number which you can find at [...] a ride home with a responsible republican. ASHLEY Mederos ALEXANDER LEELAVERE , or responsible republican have received this [...] a ride home with a responsible republican. ASHLEY Mederos ALEXANDER LEELAVERE , or responsible republican have received this information and my questions have been answered. I have discussed any challenges I see with this plan with the nurse or physician. Patient Signature or Responsible Libertarian/Relationship Date Time Provider Signature Date Time Source: [email or web address] POWERCHART Document Id: [id number] ER REFEREE Katherine Pop - 10/02/2015 6:21 PM CST ED Depart Summary [facility] Emergency Department Clinical Discharge Summary PERSON INFORMATION Name NOEL GAVIN Age 25 Years 1990 12:00 AM Sex Male Language Honduran PCP REGGIE RIVAS MD Marital Status Single Visit Id Visit Reason Psych Evaluation Specialty Enc Type Emergency Med Service Emergency Medicine Referred by Track Group [facility] ED Discharge 10/02/2015 6:21 PM Tracking Id [id number] Checkout 10/02/2015 6:21 PM Checkin 10/02/2015 6:15 PM Acuity Dispo Type Cancelled Encounter Arrival 10/02/2015 6:15 PM Reg Status Complete LOS 000 00:06 Address: [address] [place] [address] Comment: PROVIDER INFORMATION Provider Role Provider Contact Time ARCELIA BARCLAY RN ED Nurse 10/02/15 18:19 CORY IVY MD ED Provider 10/02/15 18:20 DIAGNOSIS Comment: PATIENT EDUCATION INFORMATION Instructions: Follow up: Source: [facility] POWERCHART Document Id: [id number] ER REFEREE documented in this encounter ED Notes Timmy Zhang - 10/02/2015 6:16 PM CST ED Pre-Arrival Note Pre-Arrival Summary Name: Marty Novak, 5 min Current Date: 10/02/2015 18:16:31 SOCCER REFEREE Gender: Male Age: Pre-Arrival Type: Ambulance ETA: 10/02/2015 18:37:00 SOCCER REFEREE Presenting Problem: Pre-Arrival User: TIMMY ZHANG RN Referring Source: Location: First Name: Noel Last Name: Ashley Pre-Arrival Communication Form Vital Signs: Pt coming from [place], friend called in suicide attempt, pt reported to have taken 14 Advil. Miscellaneous Issues: Source: [facility] [employer] Document Id: [id number] ER REFEREE documented in this encounter Plan of Treatment Not on filedocumented as of this encounter Visit Diagnoses Not on filedocumented in this encounter
--- OUTSIDE RECORDS SUMMARY | 2022-09-25 11:03 | XMS_ITS | Encounter Summary ---
:1990 Author Organization [facility] Address [address] [place] [address] Care Team Providers Name Role Phone Unavailable Primary Care Provider Unavailable Encounter Details Date Type Department Care Team Description 09/26/2012 Hospital Encounter [facility] Tiara Santana M.D. [address] [place] [phone] (Wo rk) Social History Tobacco Use Types [...] documented as of this encounter Progress Notes Julian Santana M.D. - 09/26/2012 2:25 PM CDT [id number] Chief Complaint: Chief Complaint Patient presents with [facility] transfer of care Gastric Problem stomach pain Derm Problem possible ring worm A.DJacielH.D talk about this and depression The patient [...] including gynecomastia per both his and his mothers report. He does not have any side [...] he was on his medications but just didnt want to be on medications any more and preferred just to smoke marijuana. PCN/BTM/dac Patient Active Problem List Diagnoses HEADACHE ATTN DEFICIT W HYPERACT TIC DISORDER NOS SLEEP DISTURBANCE NOS UNSPEC CONSTIPATION BIPOLAR - MOST RECENT EPISODE UNSPECIFIED Past Medical History Diagnosis Date Attention deficit disorder with hyperactivity Unspecified delay in development Language delay - resolved Phobia, unspecified Social phobia Obsessive-compulsive disorders depressive disorder 2010 Tic disorder, unspecified Transitory tachypnea of Varicella without mention of complication Age 4 Chickenpox Pneumonia, organism unspecified 06/18/04 Hospitalized Suicidal intent 2010 [place] Past Surgical History Procedure Date Hc cystourethroscopy 06/22/03 Hc repair ing hernia,6mo-5yr,reduc 03/13/94 (R) Hc create eardrum opening,gen anesth 05/21/95 (R) Myringotomy w tubes Hc removal adenoids,primary,<12 y/o 05/05/96 [facility] C cystoscopy,ureteral meatotomy 07/18/97 Hc circumcision clamp/device Hc repair intermed, wound trunk/arm/leg <=2.5 cm 03/23/96 Laceration (R) hand 5th finger Hc removal of tonsils,<14 y/o 10/31/97 [facility] Current Outpatient Prescriptions Medication Sig omeprazole 20 MG tablet Take 1 tablet by mouth daily. Take 30-60 minutes before a meal. ADVIL 200 MG OR CAPS prn, per mom Allergies Allergen Reactions Doxycycline Nausea and Vomiting Zithromax (Azithromycin Dihydrate) Hives Review Of Systems [...] asked from him to recheck in one months time. At that point I have asked him to be completely off of marijuana for one month and I will test it at that point. I told him that I would not fillany medications for ADHD unless he is off of the marijuana. He agrees to do this. PCN/BTM/dac Source: [facility] Document Id: [id number] documented in this encounter Plan of Treatment Not on filedocumented as of this encounter Visit Diagnoses Not on filedocumented in this encounter
--- OUTSIDE RECORDS SUMMARY | 2022-09-25 11:03 | XMS_ITS | Encounter Summary ---
:1990 Author Organization [facility] Address [address] [place] [address] Care Team Providers Name Role Phone Unavailable Primary Care Provider Unavailable Encounter Details Date Type Department Care Team Description 03/26/2008 Hospital Encounter HX [facility] Dana Alvarez D.P.M. [address] [place] [phone] (Wo rk) Social History Tobacco [...] Miscellaneous - Conversion, Historical Provider Ser - 03/26/2008 12:00 AM CDT [id number] John Fabiola Romaine [address] [place] [address] March 26, 2008 Dear John Fabiola Romaine: Our records indicate that you are due for the following appointment: FOUR WEEK FOLLOW UP VISIT Please call us to make an appointment at your convenience. Our telephone number for scheduling an appointments is [phone]. If you have already made an appointment for this or have had the procedure done, please disregard this notice. We look forward to seeing you soon. Sincerely, Dana Powell DPM/[place] [facility] Source: [facility] Document Id: [id number] documented in this encounter Plan of Treatment Not on filedocumented as of this encounter Visit Diagnoses Not on filedocumented in this encounter
--- OUTSIDE RECORDS SUMMARY | 2022-09-25 11:03 | XMS_ITS | Encounter Summary ---
:1990 Author Organization [facility] Address [address] [place] [address] Care Team Providers Name Role Phone Unavailable Primary Care Provider Unavailable Encounter Details Date Type Department Care Team Description 05/21/2011 Hospital Encounter HX [facility] Maci Osuna M.D. Social History [...] documented as of this encounter Progress Notes Conversion, Historical Provider Ser - 05/21/2011 1:40 PM CDT [id number] SUBJECTIVE: Sudden onset of sore throat for [...] to provider - Yes Katheryn Hobbs Source: [facility] Document Id: [id number] Mariely Osuna M.D. - 05/21/2011 1:40 PM CDT [id number] Triage notes reviewed and verified. OBJECTIVE: Ht [...] hours or other concerns. Smoking cessation discussed. Source: [facility] Document Id: [id number] Electronically signed by Conversion, [facility] Litigation Support Analyst [id number] at 05/02/2017 6:42 AM CDT documented in this encounter Plan of Treatment Not on filedocumented as of this encounter Visit Diagnoses Not on filedocumented in this encounter
--- OUTSIDE RECORDS SUMMARY | 2022-09-25 11:03 | XMS_ITS | Encounter Summary ---
:1990 Author Organization [facility] Address [address] [place] [address] Care Team Providers Name Role Phone Unavailable Primary Care Provider Unavailable Encounter Details Date Type Department Care Team Description 01/13/2015 Hospital Encounter HX NO MAPPING Lalo Reyes, JaredATrell [address] [place] [address] [phone] (Wo rk) Social History Tobacco [...] Sign Reading Time Taken Comments Blood Pressure 110/53 01/13/2015 1:45 PM [employer] Pulse 75 01/13/2015 1:45 PM [employer]PER[employer] Temperature - - Respiratory Rate - - Oxygen Saturation - - Inhaled Oxygen Concentration - - Weight - - Height 178 cm (5' 10.08) 01/13/2015 1:45 PM [employer]PER[employer]OR Body Mass Index - - documented in this encounter Discharge Summaries Brooke Sotelo L.P.N. - 01/13/2015 2:42 PM CST ED Discharge Instructions [facility] [address] [place] [address]. [place] [address] Name: JOHN GAVIN Date of : 1990 12:00 AM Visit Date: 01/13/2015 12:[address] [facility] Number: [id number] Address: [address] [place] [id number] Primary Care Provider: REGGIE RIVAS MD IMPORTANT: [facility] in [place] would like to thank you for allowing us to assist you with your healthcare needs. The following includes patient education materials and information regarding your injury/illness. Diagnosis: Contusion Hand Initial R; Pharyngitis (Ph) Acute Follow-Up Instructions: With: Address: When: REGGIE RIVAS [address] [place] [address] Business (1) Within As Needed Comments: For recheck If symptoms worsen Your Upcoming Appointments: Date Time Location Provider No Appointments found Patient Education Materials: [id number] CRUSH INJURY: HAND [no fx] You have a CRUSH INJURY of your HAND. This causes local pain, swelling and sometimes bruising. Thereare no broken bones. This injury may take from a few days to a few weeks to heal. If the FINGERNAIL has been severely injured, it may fall off in 1-2 weeks. A new one will usually start to grow back within a month. HOME CARE: ?? Keep your hand elevated to reduce pain and swelling. When sitting or lying down elevate your arm above the level of your heart. You can do this by placing your arm on a pillow that rests on your chest or on a pillow at your side. This is most important during the first 48 hours after injury. ?? Apply an ice pack (ice cubes in a plastic bag, wrapped in a towel) over the injured area for 20 minutes every 1-2 hours the first day for pain relief. Continue this 3-4 times a day until the pain and swelling goes away. ?? You may use acetaminophen (Tylenol) or ibuprofen (Motrin, Advil) to control pain, unless another pain medicine was prescribed. [ NOTE : If you have chronic liver or kidney disease or ever had a stomach ulcer or GI bleeding, talk with your doctor before using these medicines.] ?? Keep the splint/cast dry at all times. Bathe with your splint/cast well out of the water, protected with a large plastic bag, rubber-banded at the top end. If a fiberglass cast or splint gets wet, you can dry it with a hair-dryer. FOLLOW UP with your doctor as advised if you are not starting to improve within the next THREE days. [NOTE: If X-rays were taken, they will be reviewed by a radiologist. You will be notified of any newfindings that may affect your care.] GET PROMPT MEDICAL ATTENTION if any of the following occur: ?? The plaster cast or splint becomes wet or soft ?? The fiberglass cast or splint remains wet for more than 24 hours ?? Increased tightness or pain under the cast or splint ?? Fingers become swollen, cold, blue, numb or tingly ?? Redness, warmth, swelling, drainage from the wound, or foul odor from a cast or splint Fever of 100.4??F (38??C) or higher, or as directed by your healthcare provider ?? [phone] [place] [address]. All rights reserved. This information is not intended as a substitute for professional medical care. Always follow your healthcare professional's instructions. [address] When You Have a Sore Throat A sore throat can be painful. There are many reasons why you may have a sore throat. Your healthcareprovider will work with you to find the cause of your sore throat. He or she will also find the besttreatment for you. What Causes a Sore Throat? Sore throats can be caused or worsened by: ?? Cold or flu viruses ?? Bacteria ?? Irritants such as tobacco smoke ?? Acid reflux A Healthy Throat The tonsils are on the sides of the throat near the base of the tongue. They collect viruses and bacteria and help fight infection. The throat (pharynx) is the passage for air. Mucus from the nasal cavity also moves down the passage. An Inflamed Throat The tonsils and pharynx can become inflamed due to a cold or flu virus. Postnasal drip (excess mucusdraining from the nasal cavity) can irritate the throat. It can also make the throat or tonsils morelikely to be infected by bacteria. Severe, untreated tonsillitis in children or adults can cause a pocket of pus (abscess) to form near the tonsil. Your Evaluation A medical evaluation can help find the cause of your sore throat. It can also help your healthcare provider choose the best treatment for you. The evaluation may include a health history, physical exam, and diagnostic tests. Health History Your healthcare provider may ask you the following: ?? How long has the sore throat lasted and how have you been treating it? ?? Do you have any other symptoms, such as body aches, fever, or cough? ?? Does your sore throat recur? If so, how often? How many days of school or work have you missed because of a sore throat? ?? Do you have trouble eating or swallowing? ?? Have you been told that you snore or have other sleep problems? ?? Do you have bad breath? ?? Do you cough up bad-tasting mucus? Physical Exam During the exam, your healthcare provider checks your ears, nose, and throat for problems. He or shealso checks for swelling in the neck, and may listen to your chest. Possible Tests Other tests your healthcare provider may perform include: ?? A throat swab to check for streptococcus (the bacteria that causes strep throat) ?? A blood test to check for mononucleosis (a viral infection) ?? A chest x-ray to rule out pneumonia, especially if you have a cough Treating a Sore Throat Treatment depends on many factors. What is the likely cause? Is the problem recent? Does it keep coming back? In many cases, the best thing to do is to treat the symptoms, rest, and let the problem heal itself. Antibiotics may help clear up some infections. For cases of severe or recurring tonsillitis, the tonsils may need to be removed. Relieving Your Symptoms Dont smoke, and avoid secondhand smoke. For children, try throat sprays or Popsicles. Adults and older children may try lozenges. Drink warm liquids to soothe the throat and help thin mucus. Avoid alcohol, spicy foods, and acidic drinks such as orange juice. These can irritate the throat. Gargle with warm saltwater (1 teaspoon of salt to 8 ounces of warm water). Use a humidifier to keep air moist and relieve throat dryness. Try elim-cmr-pyeljam pain relievers such as acetaminophen or ibuprofen. Use as directed, and dont exceed the recommended dose. Dont give aspirin to children. Are Antibiotics Needed? If your sore throat is due to a bacterial infection, antibiotics may speed healing and prevent complications. But most sore throats are caused by cold or flu viruses. And antibiotics dont treat viral illness. In fact, using antibiotics when theyre not needed may produce bacteria that are harder to kill. Your healthcare provider will prescribe antibiotics only if he or she thinks they are likely to help. If Antibiotics Are Prescribed Take the medication exactly as directed. Be sure to finish your prescription even if youre feeling better. And be sure to ask your healthcare provider or pharmacist what side effects are common and what to do about them. Is Surgery Needed? In some cases, tonsils need to be removed. This is often done as outpatient (same-day) surgery. Yourhealthcare provider may advise removing the tonsils in cases of: ?? Several severe bouts of tonsillitis in a year. Severe episodes include those that lead to missed days of school or work, or that need to be treated with antibiotics. ?? Tonsillitis that causes breathing problems during sleep. ?? Tonsillitis caused by food particles collecting in pouches in the tonsils (cryptic tonsillitis). Call your healthcare provider if any of the following occur: Symptoms worsen, or new symptoms develop. Swollen tonsils make breathing difficult. A skin rash, hives, or wheezing develops. Any of these could signal an allergic reaction to antibiotics. Symptoms dont improve within a week. Symptoms dont improve within 2-3 days of starting antibiotics. ?? [phone] [facility], [address] [place] [address], [place] [address]. All rights reserved. This information is not intended as a substitute for professional medical care. Always follow your healthcare professional's instructions. [address] Self-Care for Sore Throats Sore throats occur for many reasons, such as colds, allergies, and infections caused by viruses or bacteria. In any case, your throat becomes red and sore. Your goal for self-care is to reduce your discomfort while giving your throat a chance to heal. Moisten and Soothe Your Throat ?? Try a sip of water first thing after waking up. ?? Keep your throat moist by drinking 6 or more glasses of clear liquids every day. ?? Run a cool-air humidifier in your room overnight. ?? Suck on throat lozenges, cough drops, hard candy, ice chips, or frozen fruit- juice bars. Gargle to Ease Irritation Gargling every hour or two can ease irritation. Try gargling with one of these solutions: ?? 1/4 teaspoon of salt in 1/2 cup of warm water ?? An xcsj-hsx-igqihiz anesthetic gargle Use Medication for More Relief Xmja-ssi-lzrcnof medication can reduce sore throat symptoms. Ask your pharmacist if you have questions about which medication to use. ?? Ease pain with anesthetic sprays. Aspirin or an aspirin substitute also helps. Remember, never give aspirin to anyone 18 or younger. ?? For sore throats caused by allergies, try antihistamines to block the allergic reaction. ?? Remember: unless a sore throat is caused by a bacterial infection, antibiotics wont help you. Prevent Future Sore Throats ?? Stop smoking or reduce contact with secondhand smoke. Smoke irritates the tender throat lining. ?? Limit contact with pets and with allergy-causing substances such as pollen and mold. ?? When youre around someone with a sore throat or cold, wash your hands frequently to keep viruses or bacteria from spreading. ?? Dont strain your vocal cords. Call Your Doctor If You Have: A temperature over 101.0??F White spots on the throat Great difficultyswallowing Troub le breathing A skin rash Recent exposure to someone else with strep bacteria Severehoarseness and swollen glands in the neck or jaw ?? [phone] [facility], [address] [place] [address], [place] [address]. All rights reserved. This information is not intended as a substitute for professional medical care. Always follow your healthcare professional's instructions. ED Tests and Procedures: Order Status XR Hand Right 3 or more views Completed XR Hand Right 2 views Canceled Discharge Prescriptions & Home Medications: Medication/Strength Dose Route Frequency Indications/Special Instructions/Comments/Notes amoxicillin (amoxicillin 500 mg oral capsule) 500 mg Oral two times a day for 10 Days cyclobenzaprine (cyclobenzaprine 5 mg oral tablet) 5 [...] to take those medications. JOHN GAVIN or designee has reviewed the home [...] Party/Relationship Date Time Provider Signature Date Time This document has images extracted. Please consider using [employer] for all your patient education needs. Source: [facility] POWERCHART Document Id: [id number] D [employer]E DIVISION SUPERVISOR Brooke Sotelo L.P.N. - 01/13/2015 2:42 PM CST ED Depart Summary [facility] Emergency Department Clinical Discharge Summary PERSON INFORMATION Name JOHN GAVIN Age 24 Years 1990 12:00 AM Sex Male Language Nigerian PCP REGGIE RIVAS MD Marital Status Single Visit Id Visit Reason UC - Sore Throat; Hand injury - Minor; hand injury Specialty Enc Type Hospital Outpatient Med Service Urgent Care Referred by Track Group [facility] ED Discharge 01/13/2015 2:42 PM Tracking Id [id number] Checkout 01/13/2015 2:42 PM Checkin 01/13/2015 12:55 PM Acuity 4 -Less Urgent Dispo Type * Discharged to Home or Self Care Arrival 01/13/2015 12:55 PM Reg Status Complete LOS 000 01:47 Address: [address] [place] [address] Comment: PROVIDER INFORMATION Provider Role Provider Contact Time GERMAN AGUILAR LPN ED Nurse 01/13/15 13:44 VAISHALI REYES ED Provider 01/13/15 13:50 DIAGNOSIS Contusion Hand Initial R; Pharyngitis (Ph) Acute Comment: PATIENT EDUCATION INFORMATION Instructions: CRUSH INJURY, Hand/Finger; When You Have a Sore Throat; Self-Care for Sore Throats Follow up: With: Address: When: REGGIE RIVAS [address] [place] [id number] [employer] (1) Within As Needed Comments: For recheck If symptoms worsen Source: [facility] POWERCHART Document Id: [id number] D [employer] SUPERVISOR documented in this encounter Progress Notes Vaishali Reyes P.A.-C. - 01/13/2015 12:55 PM CST [id number] CHIEF COMPLAINT/REASON FOR VISIT Cough and right hand injury. HISTORY OF PRESENT ILLNESS Patient states that he was changing a tire on a car 2 days ago when it fell off of the elias and he crushed his hand between the elias and I think the wheel well. He has been icing it and ibuprofen, but that is not helping. It still hurts as much as it did then. He is concerned that he may have a fracture. He is having pain along the lateral side of the right hand. He also states that he has had a sorethroat for about a week. He has had some chills, no fevers. Headache, but that is not unusual for him. He denies any nausea, vomiting, or diarrhea. He has had some constipation and that is not unusual for him either. PHYSICAL EXAMINATION VITAL SIGNS: Noted in the chart. GENERAL: He is a well-developed 24-year-old male in no acute distress at rest. ENT: Tympanic membranes are clear. Nasal passages are swollen. Maxillary sinuses slightly tender to palpation. Oropharynx is irritated but no erythema. HEART: Regular rate and rhythm without murmur. LUNGS: Clear to auscultation bilaterally. EXTREMITIES: Assessment of his right hand, patient has some abrasions across the knuckles of his right hand that are scabbing and healing. He has also has some tenderness along the lateral side of his right hand, down the 5th metacarpal. Very tender to palpation. He can close his hand but not very tightly. He does have a little bit of limitation to the leather scraper on the right side. He has good capillary refill less than 2 seconds and the fingers are warm and dry. DIAGNOSTICS X-ray did not show any fractures. IMPRESSION/REPORT/PLAN 1. Crush injury, contusion to right hand. 2. Pharyngitis. PLAN: Put him on amoxicillin 500 mg 2 times a day for 10 days. Have him alternate Tylenol and Motrinfor fever and pain. Elevate his hand, put ice on it, continue to do this. I did give him some tramadol 50 mg, 1 by mouth every 6 hours as needed for pain for 3 days #12. If he has any problems or gets worse, he needs to follow up. Patient understands and agrees with the plan. Vaishali Reyes P.A.-C./magaly Electronically Signed By: VAISHALI REYES On: 01/15/2015 12:14 PM Source: [facility] MHSDOLBEYNONRADSYS Document Id: [id number] D [employer]E DIV[employer] SUPERVISOR documented in this encounter H&P Notes German Aguilar L.P.N. - 01/13/2015 1:45 PM CST Urgent Care Intake Urgent Care Intake Entered On: 01/13/2015 13:47 [employer]PERVISOR Performed On: 01/13/2015 13:45 [employer] SUPERVISOR by GERMAN AGUILAR ELECTRICAL AND INSTRUMENT TECHNICIAN Intake Chief Complaint : Cough Temperature Core : 36.8 DegC(Converted to: 98.2 DegF) Peripheral Pulse Rate : 75 /min Systolic Blood Pressure : 110 mmHg Diastolic Blood Pressure : 53 mmHg NIBP Mean : 72 mmHg SpO2 : 99 % Height : 178 cm(Converted to: 5 ft 10 inch(es), 70 inch(es)) GERMAN AGUILAR [facility] - 01/13/2015 13:45 [employer] SUPERVISOR General Info Information Given By : Patient Languages : Nigerian Is Patient Female and 13-50 no hysterectomy : No GERMAN AGUILAR [facility] - 01/13/2015 13:45 [employer] SUPERVISOR Subjective Pain Symptoms : No GERMAN AGUILAR [facility] - 01/13/2015 13:45 [employer] SUPERVISOR Dependent Habits Tobacco Use/Currently Using : No Smoking Status : Never smoker GERMAN AGUILAR [facility] - 01/13/2015 13:45 [employer]PER[employer]OR Tobacco Use Grid Cigarette Use Packs/Day : 1 GERMAN AGUILAR [facility] - 01/13/2015 13:45 [employer] SUPERVISOR ID Screen Travel Within Last 21 Days : No GERMAN AGUILAR [facility] - 01/13/2015 13:45 [employer] SUPERVISOR Nutrition Nutrition Risk Factors by History Adult : None GERMAN AGUILAR [facility] - 01/13/2015 13:45 [employer] SUPERVISOR Functional Current Daily Living Assistance : None GERMAN AGUILAR [facility] - 01/13/2015 13:45 [employer] SUPERVISOR Psychosocial Domestic Abuse Concerns : None Mosque Preference : No qualifying data available. GERMAN AGUILAR [facility] - 01/13/2015 13:45 [employer] SUPERVISOR Advance Directive Advanced Directives : No Advance Directive Additional Information : No GERMAN AGUILAR [facility] - 01/13/2015 13:45 [employer] SUPERVISOR Educ Needs Learning Style Preference Adult Grid Patient : None Family : None GERMAN AGUILAR [facility] - 01/13/2015 13:45 [employer] SUPERVISOR [facility]: [facility] POWER[facility] Document Id: [id number] SOL[employer]E DIVISION SUPERVISOR!38 D WASTE DIVISION SUPERVISOR documented in this encounter ED Notes Brooke Sotelo L.P.N. - 01/13/2015 2:41 PM CST ED Disposition Summary ED Disposition Summary Entered On: 01/13/2015 14:41 [employer] SUPERVISOR Performed On: 01/13/2015 14:41 [employer] SUPERVISOR by BROOKE SOTELO LPN ED Disposition Summary Printed Discharge Instructions Given to Patient : Maik BROOKE SOTELO LPN - 01/13/2015 14:41 [employer] SUPERVISOR Source: [facility] POWERCHART Document Id: [id number] SOL[employer] W[employer]E DIVISION SUPERVISOR!3 D WASTE DIVISION SUPERVISOR Conversion, Historical Provider Ser - 01/13/2015 12:56 PM CST ED Triage Assessment Document Has Been Updated ED Triage Assessment Entered On: 01/13/2015 12:57 [employer] SUPERVISOR Performed On: 01/13/2015 12:56 [employer] SUPERVISOR by MIC SHAFER RN Reason For Visit (As Of: 01/13/2015 12:58:18 [employer] SUPERVISOR) Problems(Active) Attention Deficit Disorder of Childhood with Hyperactivity (ICD-9-CM :314.01 ) Name of Problem: Attention Deficit Disorder of Childhood with Hyperactivity ; Onset Date: 06/08/2001 ; Confirmation: Confirmed ; Classification: Medical ; Code: 314.01 ; Contributor System: [facility]_HX_PR_UPLOAD ; Last Updated:02/24/2014 15:28 CDT ; Life Cycle Status: Active ; Vocabulary: ICD-9-CM ; Comments: - Attention deficit disorder with hyperactivity Bipolar I Disorder, Most Recent Episode (Or Current) Unspecified (ICD-9-CM :296.7 ) Name of Problem:Bipolar I Disorder, Most Recent Episode (Or Current) Unspecified ; Onset Date: 01/07/2006 ; Confirmation: Confirmed ; Classification: Medical ; Code: 296.7 ; Contributor System: [facility]_HX_PR_UPLOAD ; Last Updated: 02/24/2014 15:28 CDT ; Life Cycle Status: Active ; Vocabulary: ICD-9-CM ; Comments: - Bipolar I disorder, most recent episode (or current) unspecified Constipation, Unspecified (ICD-9-CM :564.00 ) Name of Problem: Constipation, Unspecified ; Onset Date: 03/12/2004 ; Confirmation: Confirmed ; Classification: Medical ; Code: 564.00 ; Contributor System: [facility]_HX_PR_SurgiLightOAD ; Last Updated: 02/24/2014 15:28 CDT ; Life Cycle Status: Active ; Vocabulary: ICD-9-CM ; Comments: - Unspecified constipation Headache (ICD-9-CM :784.0 ) Name of Problem: Headache ; Onset Date: 06/08/2001 ; Confirmation: Confirmed ; Classification: Medical ; Code: 784.0 ; Contributor System: [facility]_HX_PR_[employer] ; Last Updated: 02/24/2014 15:28 CDT ; Life Cycle Status: Active ; Vocabulary: ICD-9-CM ; Comments: - Headache Tic Disorder, Unspecified (ICD-9-CM :307.20 ) Name of Problem: Tic Disorder, Unspecified ; Onset Date: 07/20/2002 ; Confirmation: Confirmed ; Classification: Medical ; Code: 307.20 ; Contributor System: [facility]_HX_PR_SurgiLightOAD ; Last Updated: 02/24/2014 15:28 CDT ; Life Cycle Status: Active ; Vocabulary: ICD-9-CM ; Comments: - Tic disorder, unspecified Unspecified Sleep Disturbance (ICD-9-CM :780.50 ) Name of Problem: Unspecified Sleep Disturbance ; Onset Date: 07/04/2003 ; Confirmation: Confirmed ; Classification: Medical ; Code: 780.50 ; Contributor System: [facility]_HX_PR_[employer] ; Last Updated: 02/24/2014 15:28 CDT ; Life Cycle Status: Active ; Vocabulary: ICD-9-CM ; Comments: - Sleep disturbance, unspecified Diagnoses(Active) Hand injury - Minor Date: 01/13/2015 ; Diagnosis Type: Reason For Visit ; Confirmation: Complaint of; Clinical Dx: Hand injury - Minor ; Classification: Medical ; Clinical Service: Emergency medicine ; Code: PNED ; Probability: 0 ; Diagnosis Code: [id number] UC - Sore Throat Date: 01/13/2015 ; Diagnosis Type: Reason For Visit ; Confirmation: Complaint of ; Clinical Dx: UC - Sore Throat ; Classification: Medical ; Clinical Service: Emergency medicine ; Code: PNED ; Probability: 0 ; Diagnosis Code: [id number] Triage Chief Complaint Description : C/O pain/injury right hand. States a car fell on it 2 days ago. Also C/O sorethroat. MIC SHAFER RN - 01/13/2015 12:57 [employer] SUPERVISOR Information Given By : Patient Accompanied By : Friend Mode of Arrival ED : Private vehicle, Ambulatory Track : Medical Languages : Nigerian Patient Informed of Triage Location : Urgent Care Treatments Prior to Arrival : None Is Patient Female and 13-50 no hysterectomy : No MIC SHAFER RN - 01/13/2015 12:56 [employer] SUPERVISOR Pain Assessment Pain Symptoms : Yes MIC SHAFER RN - 01/13/2015 12:56 [employer] SUPERVISOR Pain Scale Pain Scale Verbal 0-10 : Open MIC SHAFER RN - 01/13/2015 12:56 [employer] SUPERVISOR Pain Pain Assessment Grid Pain 1 Location : Hand Laterality : Right Intensity : 8 MIC SHAFER RN - 01/13/2015 12:56 [employer] SUPERVISOR BREEZY DCP GENERIC CODE Tracking Group : [facility] ED Tracking Acuity : 4 -Less Urgent MIC SHAFER RN - 01/13/2015 12:56 [employer] SUPERVISOR ID Screen Travel Within Last 21 Days : No MIC SHAFER RN - 01/13/2015 12:56 [employer] SUPERVISOR [facility] Document Id: [id number] SOL[employer] WASTE DIVISION SUPERVISOR!3 documented in this encounter Plan of Treatment Not on filedocumented as of this encounter Visit Diagnoses Not on filedocumented in this encounter
--- OUTSIDE RECORDS SUMMARY | 2022-09-25 11:03 | XMS_ITS | Encounter Summary ---
:1990 Author Organization [facility] Address [address] [place] [address] Care Team Providers Name Role Phone Unavailable Primary Care Provider Unavailable Encounter Details Date Type Department Care Team Description 04/04/[address] [facility] Maci Osuna M.D. Social History [...] Progress Notes Conversion, Historical Provider Ser - 04/04/2008 3:20 PM CDT [id number] Sudden onset of sore throat x 7 [...] a provider visit? No ? No Katheryn Stewartamari Source: [facility] Document Id: [id number] Mariely Osuna M.D. - 04/04/2008 3:20 PM CDT [id number] Triage notes reviewed and verified. Did have [...] to 72 hours or other concerns. Source: [facility] Document Id: [id number] Electronically signed by [facility], [facility] Court Manager [id number] at 05/03/2017 4:46 AM CDT documented in this encounter Plan of Treatment Not on filedocumented as of this encounter Visit Diagnoses Not on filedocumented in this encounter
--- OUTSIDE RECORDS SUMMARY | 2022-09-25 11:03 | XMS_ITS | Encounter Summary ---
:1990 Author Organization [facility] Address [address] [place] [address] Care Team Providers Name Role Phone Unavailable Primary Care Provider Unavailable Encounter Details Date Type Department Care Team Description 11/01/2013 Hospital Encounter [facility] Social History Tobacco Use Types Packs/Day Years [...]
--- OUTSIDE RECORDS SUMMARY | 2022-09-25 11:03 | XMS_ITS | Encounter Summary ---
:1990 Author Organization [facility] Address [address] [place] [address] Care Team Providers Name Role Phone Unavailable Primary Care Provider Unavailable Encounter Details Date Type Department Care Team Description 12/06/2013 Hospital Encounter HX NO MAPPING Vania Cota P.A.-C. [address] [place], [place] [address] (Wo rk) Social History Tobacco Use Types [...] Progress Notes Conversion, Historical Provider Ser - 12/06/2013 6:45 PM CST [id number] The patient is a 23-year-old male who [...] in agreement with the plan. SADIE Ellis/amari Source: [facility] RWHXTRANSXRTFSYS Document Id: [id number] documented in this encounter Plan of Treatment Not on filedocumented as of this encounter Procedures Procedure Name Priority Date/Time Associated Comments Diagnosis HX UR PROTEIN ALBUMIN Routine 12/06/2013 7:17 PM Results for this SYSTEM ADMINISTRATION MANAGER procedure are i n the results section. HX SP SOURCE Routine 12/06/2013 7:17 PM Results f or this SYSTEM ADMINISTRATION MANAGER procedure are i n the results section. URINALYSIS, DIPSTICK Routine 12/06/2013 7:17 PM R esults for this SYSTEM ADMINISTRATION MANAGER procedure are i n the results section. KETONES,QL(U) Routine 12/06/2013 7:17 PM Results for this SYSTEM ADMINISTRATION MANAGER procedure are i n the results section. URINALYSIS, ROUTINE Routine 12/06/2013 7:17 PM Re sults for this SYSTEM ADMINISTRATION MANAGER procedure are i n the results section. URINALYSIS, ROUTINE Routine 12/06/2013 7:17 PM Re sults for this SYSTEM ADMINISTRATION MANAGER procedure are i n the results section. URINALYSIS, ROUTINE Routine 12/06/2013 7:17 PM Re sults for this SYSTEM ADMINISTRATION MANAGER procedure are i n the results section. URINALYSIS, ROUTINE Routine 12/06/2013 7:17 PM Re sults for this SYSTEM ADMINISTRATION MANAGER procedure are i n the results section. URINALYSIS, ROUTINE Routine 12/06/2013 7:17 PM Re sults for this SYSTEM ADMINISTRATION MANAGER procedure are i n the results section. PH, U Routine 12/06/2013 7:17 PM Results f or this SYSTEM ADMINISTRATION MANAGER procedure are i n the results section. URINE MICROSCOPIC Routine 12/06/2013 7:17 PM Resu lts for this SYSTEM ADMINISTRATION MANAGER procedure are i n the results section. URINE MICROSCOPIC Routine 12/06/2013 7:17 PM Resu lts for this SYSTEM ADMINISTRATION MANAGER procedure are i n the results section. URINE MICROSCOPIC Routine 12/06/2013 7:17 PM Resu lts for this SYSTEM ADMINISTRATION MANAGER procedure are i n the results section. UROBILINOGEN, QL, U Routine 12/06/2013 7:17 PM Re sults for this SYSTEM ADMINISTRATION MANAGER procedure are i n the results section. BILIRUBIN, U Routine 12/06/2013 7:17 PM Results f or this SYSTEM ADMINISTRATION MANAGER procedure are i n the results section. documented in this encounter Results Urine Microscopic (12/06/2013 7:17 PM SYSTEM ADMINISTRATION MANAGER) P athologist Signature Red Blood Cell <1 HPF [facility], Urine [facility] Specimen (Source) Anatomical Collection Method Collection Time Re ceived Time Location / / Volume Laterality 12/06/2013 7:17 PM SYSTEM ADMINISTRATION MANAGER Historical Provider LAB URINE ORDERABLES Performing Organization Address City/State/ZIP Code Phon e Number [facility] Urine Microscopic (12/06/2013 7:17 PM SYSTEM ADMINISTRATION MANAGER) P athologist Signature HXUr WBC [address] [facility] Specimen (Source) Anatomical Collection Method Collection Time Re ceived Time Location / / Volume Laterality 12/06/2013 7:17 PM SYSTEM ADMINISTRATION MANAGER Historical Provider LAB URINE ORDERABLES Performing Organization Address City/State/ZIP Code Phon e Number [facility] HX SP SOURCE (12/06/2013 7:17 PM SYSTEM ADMINISTRATION MANAGER) Patholo gist Method Time Signature HXSP Source Midstream [facility] Urine [facility] Specimen (Source) Anatomical Collection Method Collection Time Re ceived Time Location / / Volume Laterality 12/06/2013 7:17 PM SYSTEM ADMINISTRATION MANAGER Historical Provider LAB HISTORICAL ORDERS Performing Organization Address City/State/ZIP Code Phon e Number [facility] Urinalysis, Routine (12/06/2013 7:17 PM SYSTEM ADMINISTRATION MANAGER) P athologist Signature Leukocyte Negative [facility] Esterase [facility] Specimen (Source) Anatomical Collection Method Collection Time Re ceived Time Location / / Volume Laterality 12/06/2013 7:17 PM SYSTEM ADMINISTRATION MANAGER Historical Provider LAB URINE ORDERABLES Performing Organization Address City/State/ZIP Code Phon e Number [facility] Urinalysis no Reflex (12/06/2013 7:17 PM SYSTEM ADMINISTRATION MANAGER) P athologist Signature HXNITRITE Negative [facility] Specimen (Source) Anatomical Collection Method Collection Time Re ceived Time Location / / Volume Laterality 12/06/2013 7:17 PM SYSTEM ADMINISTRATION MANAGER Historical Provider LAB URINE ORDERABLES Performing Organization Address City/State/ZIP Code Phon e Number [facility] Urobilinogen, QL, Urine (12/06/2013 7:17 PM SYSTEM ADMINISTRATION MANAGER) P athologist Signature Urobilinogen Normal [facility] Specimen (Source) Anatomical Collection Method Collection Time Re ceived Time Location / / Volume Laterality 12/06/2013 7:17 PM SYSTEM ADMINISTRATION MANAGER Historical Provider LAB URINE ORDERABLES Performing Organization Address City/State/ZIP Code Phon e Number [facility] HX UR PROTEIN ALBUMIN (12/06/2013 7:17 PM SYSTEM ADMINISTRATION MANAGER) P athologist Signature Hx Ur Protein Negative [facility] Specimen (Source) Anatomical Collection Method Collection Time Re ceived Time Location / / Volume Laterality 12/06/2013 7:17 PM SYSTEM ADMINISTRATION MANAGER Historical Provider LAB HISTORICAL ORDERS Performing Organization Address City/State/ZIP Code Phon e Number [facility] pH, Urine (12/06/2013 7:17 PM SYSTEM ADMINISTRATION MANAGER) P athologist Signature pH, POCT, Urine 5.[address] [facility] Specimen (Source) Anatomical Collection Method Collection Time Re ceived Time Location / / Volume Laterality 12/06/2013 7:17 PM SYSTEM ADMINISTRATION MANAGER Historical Provider LAB URINE ORDERABLES Performing Organization Address City/State/ZIP Code Phon e Number [facility] Urinalysis, Routine (12/06/2013 7:17 PM SYSTEM ADMINISTRATION MANAGER) P athologist Signature HXBLOOD Negative [facility] Specimen (Source) Anatomical Collection Method Collection Time Re ceived Time Location / / Volume Laterality 12/06/2013 7:17 PM SYSTEM ADMINISTRATION MANAGER Historical Provider LAB URINE ORDERABLES Performing Organization Address City/State/ZIP Code Phon e Number [facility] Urinalysis, Routine (12/06/2013 7:17 PM SYSTEM ADMINISTRATION MANAGER) P athologist Signature Specific 1.002 [facility] [place], [place], [facility] LAB Specimen (Source) Anatomical Collection Method Collection Time Re ceived Time Location / / Volume Laterality 12/06/2013 7:17 PM SYSTEM ADMINISTRATION MANAGER Historical Provider LAB URINE ORDERABLES Performing Organization Address City/State/ZIP Code Phon e Number [facility] Ketones, Qual, Urine (12/06/2013 7:17 PM SYSTEM ADMINISTRATION MANAGER) P athologist Signature Ketones, QL(U) Negative [facility] LAB Specimen (Source) Anatomical Collection Method Collection Time Re ceived Time Location / / Volume Laterality 12/06/2013 7:17 PM SYSTEM ADMINISTRATION MANAGER Historical Provider LAB URINE ORDERABLES Performing Organization Address City/State/ZIP Code Phon e Number [facility] Bilirubin, Urine (12/06/2013 7:17 PM SYSTEM ADMINISTRATION MANAGER) P athologist Signature HXBILIRUBIN Negative [facility] LAB Specimen (Source) Anatomical Collection Method Collection Time Re ceived Time Location / / Volume Laterality 12/06/2013 7:17 PM SYSTEM ADMINISTRATION MANAGER Historical Provider LAB URINE ORDERABLES Performing Organization Address City/State/ZIP Code Phon e Number [facility] Urinalysis, Routine (12/06/2013 7:17 PM SYSTEM ADMINISTRATION MANAGER) P athologist Signature Glucose Negative [facility] LAB Specimen (Source) Anatomical Collection Method Collection Time Re ceived Time Location / / Volume Laterality 12/06/2013 7:17 PM SYSTEM ADMINISTRATION MANAGER Historical Provider LAB URINE ORDERABLES Performing Organization Address City/State/ZIP Code Phon e Number [facility] Urinalysis, Routine (12/06/2013 7:17 PM SYSTEM ADMINISTRATION MANAGER) P athologist Signature Appearance Clear [facility] LAB Specimen (Source) Anatomical Collection Method Collection Time Re ceived Time Location / / Volume Laterality 12/06/2013 7:17 PM SYSTEM ADMINISTRATION MANAGER Historical Provider LAB URINE ORDERABLES Performing Organization Address City/[facility]/ZIP Code Phon e Number [facility] LAB Urine Microscopic (12/06/2013 7:17 PM SYSTEM ADMINISTRATION MANAGER) athologist Signature HXUr Color Straw [facility] LAB Specimen (Source) Anatomical Collection Method Collection Time Re ceived Time Location / / Volume Laterality 12/06/2013 7:17 PM SYSTEM ADMINISTRATION MANAGER Historical Provider LAB URINE ORDERABLES Performing Organization Address City/[facility]/ZIP Code Phon e Number [facility] documented in this encounter Visit Diagnoses Not on filedocumented in this encounter
--- OUTSIDE RECORDS SUMMARY | 2022-09-25 11:03 | XMS_ITS | Encounter Summary ---
:1990 Author Organization [facility] Address [address] [place] [address] Care Team Providers Name Role Phone Unavailable Primary Care Provider Unavailable Encounter Details Date Type Department Care Team Description 07/27/2013 Hospital Encounter HX NO MAPPING Grover Can M.D. [address] [place], [place] [phone] (Wo rk) Social History [...]
--- OUTSIDE RECORDS SUMMARY | 2022-09-25 11:03 | XMS_ITS | Encounter Summary ---
:1990 Author Organization [facility] Address [address] [place] [address] Care Team Providers Name Role Phone Unavailable Primary Care Provider Unavailable Encounter Details Date Type Department Care Team Description 04/16/2009 Hospital Encounter HX [facility] Provider, Historic al Social History Tobacco Use [...] of this encounter Miscellaneous Notes Miscellaneous - Mariely Osuna M.D. - 04/16/2009 9:15 AM CDT [id number] To: John Hicks Romaine [address] [place] [phone] Dear John Fabiola Romaine: The result(s) of your recent lab or xray test(s) were normal. I have enclosed a copy of the result(s). If you have any further questions or problems, please contact our office at [phone]. Sincerely, Mariely Osuna M.D. Pediatrics [facility] 04/17/2009 Source: [facility] Document Id: [id number] Electronically signed by Bibi [facility] Certified Neurodiagnostic Technologist [id number] at 05/02/2017 4:13 PM CDT documented in this encounter Plan of Treatment Not on filedocumented as of this encounter Visit Diagnoses Not on filedocumented in this encounter
--- OUTSIDE RECORDS SUMMARY | 2022-09-25 11:03 | XMS_ITS | Encounter Summary ---
:1990 Author Organization [facility] Address [address] [place] [address] Care Team Providers Name Role Phone Unavailable Primary Care Provider Unavailable Encounter Details Date Type Department Care Team Description 07/30/2011 Hospital Encounter HX [facility] Maci Osuna M.D. Social History [...] Encounter - Conversion, Historical Provider Ser - 07/30/2011 12:00 AM CDT [id number] Situation/What is the patients concern/need: Mom called asking for an order for him to be seen at [facility] in the psychiatric dept. He was just released from an in pt facillity for a suicide attempt. She has not yet found him an adult provider. Clinical Background/Recent Intervention: depression Recommendation/Patient Request: Fax an order to [facility] at [phone] Best number(s) to reach patient: home [phone] Source: [facility] Document Id: [id number] Telephone Encounter - Mariely Osuna M.D. - 07/30/2011 12:00 AM CDT [id number] Order entered. Please complete. Source: [facility] Document Id: [id number] Electronically signed by Conversion, [facility] Batteryman [id number] at 05/02/2017 12:59 AM CDT Telephone Encounter - Conversion, Historical Provider Ser - 07/30/2011 12:00 AM CDT [id number] Referral faxed to [facility] Source: [facility] Document Id: [id number] documented in this encounter Plan of Treatment Not on filedocumented as of this encounter Visit Diagnoses Not on filedocumented in this encounter
--- OUTSIDE RECORDS SUMMARY | 2022-09-25 11:03 | XMS_ITS | Encounter Summary ---
:1990 Author Organization [facility] Address [address] [place] [address] Care Team Providers Name Role Phone Unavailable Primary Care Provider Unavailable Encounter Details Date Type Department Care Team Description 04/24/2012 Hospital Encounter HX NO MAPPING Emanuel Gandhi M.D. [address] [place], [place] [phone] (Wo rk) Social History [...]
--- OUTSIDE RECORDS SUMMARY | 2022-09-25 11:03 | XMS_ITS | Encounter Summary ---
:1990 Author Organization [facility] Address [address] [place] [address] Care Team Providers Name Role Phone Unavailable Primary Care Provider Unavailable Encounter Details Date Type Department Care Team Description 05/22/2009 Hospital Encounter HX NO MAPPING Social History Tobacco Use Types Packs/Day Years [...]
--- OUTSIDE RECORDS SUMMARY | 2022-09-25 11:03 | XMS_ITS | Encounter Summary ---
:[address] [facility] Address [address] [place] [address] Care Team Providers Name Role Phone Unavailable Primary Care Provider Unavailable Encounter Details Date Type Department Care Team Description 10/13/2012 Hospital [facility] Tiara Santana M.D. [address] [place] [phone] (Wo rk) Social History Tobacco Use Types [...] of this encounter Miscellaneous Notes Miscellaneous - Julian Santana M.D. - 10/13/2012 12:00 AM CST [id number] John Gavin [address] [facility] [phone] October 13, 2012 Dear John Gavin, APPOINTMENT REMINDER: Our record indicates that it is time for you to be seen for an office visit with Julian Santana M.D. You may call our office at [phone] to schedule an appointment for your one (1) month follow-up visit. Please disregard this notice if you have already made an appointment. Sincerely, [facility] [place] Source: [facility] Document Id: [id number] Electronically signed by Bibi [facility] Risk And Assurance Manager [id number] at 05/01/2017 5:40 PM CDT documented in this encounter Plan of Treatment Not on filedocumented as of this encounter Visit Diagnoses Not on filedocumented in this encounter
--- OUTSIDE RECORDS SUMMARY | 2022-09-25 11:03 | XMS_ITS | Encounter Summary ---
:1990 Author Organization [facility] Address [address] [place] [address] Care Team Providers Name Role Phone Unavailable Primary Care Provider Unavailable Encounter Details Date Type Department Care Team Description 12/05/2012 Hospital En[facility] Provider, [facility] Social History Tobacco Use Types Packs/Day Years [...] Progress Notes Conversion, Historical Provider Ser - 12/05/2012 11:30 AM CST [id number] John Gavin is a 22 year old male. Patient received: FLUVIRIN INJECTION Patient Questionaire: Did you receive a flu vaccine last year? I have a fever or feel ill today? No I have an allergy to eggs, gelatin or thimerosal? No I have had a reaction to the flu vaccine the past? No I have had Guillain-Ellamore syndrome? No I have a Latex Allergy? No VIS information given Source: [facility] Document Id: [id number] documented in this encounter Plan of Treatment Not on filedocumented as of this encounter Visit Diagnoses Not on filedocumented in this encounter
--- OUTSIDE RECORDS SUMMARY | 2022-09-25 11:03 | XMS_ITS | Encounter Summary ---
:1990 Author Organization [facility] Address [address] [place] [address] Care Team Providers Name Role Phone Unavailable Primary Care Provider Unavailable Encounter Details Date Type Department Care Team Description 07/17/2011 Hospital Encounter HX NO MAPPING Social History [...]
--- OUTSIDE RECORDS SUMMARY | 2022-09-25 11:03 | XMS_ITS | Encounter Summary ---
:1990 Author Organization [facility] Address [address] [place] [address] Care Team Providers Name Role Phone Unavailable Primary Care Provider Unavailable Encounter Details Date Type Department Care Team Description 02/15/2008 Hospital Encounter HX [facility] Dana Alvarez D.P.M. [address] [place] [phone] (Wo rk) Social History Tobacco Use Types [...] encounter Progress Notes Dana Trujillo D.P.M. - 02/15/2008 9:00 AM CDT [id number] SUBJECTIVE: John is a 17 year old male who presents today for evaluation of warts. He has had multiple freezing to these and noted resolution to warts on hand. He is here today with his mother. Past Medical History Diagnosis Date ATTN DEFICIT W HYPERACT DEVELOPMENT DELAY NOS Language delay - resolved PHOBIA NOS Social phobia OBSESSIVE-COMPULSIVE DIS TIC DISORDER NOS OTITIS MEDIA NOS Recurrent otitis TRANSITORY TACHYPNEA VARICELLA UNCOMPLICATED Age 4 Chickenpox CHRONIC TONSILLITIS Recurrent PNEUMONIA, ORGANISM NOS 06/18/04 Hospitalized VOLUME DEPLETION Family History Problem Relation Neurological Mother migraine headaches Neurological Paternal Grandmother migraine headaches Depression Father Committed suicide Psychiatry Father Mental illness Alcohol/Drug Paternal family with history of depression,alcohol, drugs & social abuse Respiratory Paternal Grandfather Emphysema Hypertension Paternal Grandmother Heart Paternal Grandmother Heart murmer, [place] Respiratory Father Asthma Respiratory Mother Asthma Respiratory Brother Asthma Eye Maternal Uncle GLAUCOMA Eye Maternal Grandmother CATARACTS ROS: constitutional symptoms: negative,Musc-skel:negative, Endo:negative and history of diabetes, Skin:warts. Past Medical History Diagnosis Date ATTN DEFICIT W HYPERACT DEVELOPMENT DELAY NOS Language delay - resolved PHOBIA NOS Social phobia OBSESSIVE-COMPULSIVE DIS TIC DISORDER NOS OTITIS MEDIA NOS Recurrent otitis TRANSITORY TACHYPNEA VARICELLA UNCOMPLICATED Age 4 Chickenpox CHRONIC TONSILLITIS Recurrent PNEUMONIA, ORGANISM NOS 06/18/04 Hospitalized VOLUME DEPLETION Family History Problem Relation Neurological Mother migraine headaches Neurological Paternal Grandmother migraine headaches Depression Father Committed suicide Psychiatry Father Mental illness Alcohol/Drug Paternal family with history of depression,alcohol, drugs & social abuse Respiratory Paternal Grandfather Emphysema Hypertension Paternal Grandmother Heart Paternal Grandmother Heart [place], [place] Respiratory Father Asthma Respiratory Mother Asthma Respiratory Brother Asthma Eye Maternal Uncle GLAUCOMA Eye Maternal Grandmother CATARACTS Allergy injections have been documented on the paper flow sheet and filed in department by Dana Powell DPM. OBJECTIVE: Temperature 97.9. Patient is alert [...] understanding to information discussed this visit. Source: [facility] RWMCHXTRANSXRTFSYS Document Id: [id number] Electronically signed by Conversion, [facility] Director Safety Council [id number] at 05/03/2017 1:38 AM CDT documented in this encounter Plan of Treatment Not on filedocumented as of this encounter Visit Diagnoses Not on filedocumented in this encounter
--- OUTSIDE RECORDS SUMMARY | 2022-09-25 11:03 | XMS_ITS | Encounter Summary ---
:1990 Author Organization [facility] Address [address] [place] [address] Care Team Providers Name Role Phone Unavailable Primary Care Provider Unavailable Encounter Details Date Type Department Care Team Description 10/08/2015 Hospital Encounter HX [facility] Wilman Miles M.D. [address] [place] [address] (Wo rk) Social History Tobacco [...] Sign Reading Time Taken Comments Blood Pressure 92/50 10/08/2015 8:13 AM TRACTOR CRANE ENGINEER Pulse 60 10/08/2015 8:13 AM TRACTOR CRANE ENGINEER Temperature - - Respiratory Rate - - Oxygen Saturation - - Inhaled Oxygen Concentration - - Weight 76.2 kg (167 lb 15.9 oz) 10/08/2015 8:13 AM TRACTOR CRANE ENGINEER Height 180 cm (5' 10.87) 10/08/2015 8:13 AM TRACTOR CRANE ENGINEER Body Mass Index 23.52 10/08/2015 8:13 AM TRACTOR CRANE ENGINEER documented in this encounter Progress Notes Wilman Miles M.D. - 10/08/2015 8:43 AM CST Clinic Progress Note Consolidated CHIEF COMPLAINT/REASON FOR VISIT injury to right hand 1 year ago, now reinjured HISTORY OF PRESENT ILLNESS: 25-year-old male presents with ongoing issues with his right hand and forearm. He states that approximate 1 year ago he punched a wall with the right hand. He was seen in Urgent Care and x-rays were unremarkable. That in December of last year he had a elias fall on his right hand and injured the hand.He was also seen in Urgent Care at that time an x-ray was unremarkable. He had a finger laceration on the right hand and February of last year and again an x-ray was negative. He reports that since these injuries he continues to have swelling over the third finger MP knuckle and discomfort that can travel from the volar surface of his hand into the forearm. At times he feels like the finger and wrist gets locked up and are difficult to move. He is in between jobs for the next month and wonders if thereis something that can be done. Specifically he would like to see Dr. Garrett Arevalo, Orthopedics sinceother family members have seen him. His mother called to try to get an appointment but apparently itis quite await to see him. MEDICATIONS Advil Liquigel 200 mg oral capsule, See Instructions, prn, per mom cyclobenzaprine 5 mg oral tablet, methylPREDNISolone 4 mg oral tablet, omeprazole 20 mg oral delayed release tablet, OXcarbazepine 600 mg oral tablet, traZODone 100 mg oral tablet, List Documented Prior to Med History Completed ALLERGIES azithromycin (Hives) doxycycline (Nausea and Vomiting) PAST MEDICAL HISTORY Chronic Abuse Tobacco Smoking NOS Attention Deficit Disorder of Childhood with Hyperactivity Bipolar I Disorder, Most Recent Episode (Or Current) Unspecified Constipation, Unspecified Headache Tic Disorder, Unspecified Unspecified Sleep Disturbance Historical No historical problems PROCEDURES/SURGICAL HISTORY Cystourethroscopy (06/22/2003), Tonsillectomy (10/31/1997), Cystoscopy, ureteral meatotomy (07/18/1997), Adenoidectomy (05/05/1996), Repair, Laceration (R) hand 5th finger (03/23/1996), Myringotomy w tubes, right (05/21/1995), Repair inguinal hernia, right (03/13/1994), Circumcision. SOCIAL HISTORY Date Time: 10/08/2015 08:15 Tobacco: Smoking Status: No Results Found Exposure: No Results Found Alcohol: Use: No Recreational Drugs: Use: None Type: No Results Found FAMILY HISTORY Mother:Positive: Asthma; History of - migraine Father ( at 0 year(s)):Positive: Asthma; Depression; Mental illness; Suicide Brother:Positive: Asthma Grandmother (maternal):Positive: Cataract Uncle (maternal):Positive: Glaucoma Grandmother (paternal):Positive: Heart murmur; History of - migraine; Hypertension; Myocardial infarction Grandfather (paternal):Positive: Emphysema of lung SYSTEMS REVIEW GENERAL: No fevers chills or sweats. PULMONARY: No shortness of breath, no wheezing. CARDIOVASCULAR: No chest pain, no exertional chest pain. VITAL SIGNS Peripheral Pulse Rate: 60 BLOOD PRESSURE Systolic Blood Pressure: 92 Diastolic Blood Pressure: 50 Low MEASUREMENTS Height: 180 Actual Weight: 76.2 Body Mass Index: 23.52 PHYSICAL EXAMINATION GENERAL: Patient is alert and oriented and in no distress. EYES: Normal lids and conjunctiva, pupils equal. NEURO: Cranial nerves intact. Moves all extremities well. No focal deficits. RIGHT HAND: He has some mild tenderness over the MP third digit and some tenderness into the volar forearm but no evidence of catching or locking crepitus. Neurovascular intact. DIAGNOSTIC RESULTS Hand Xray: no defininite fracture noted and full radiographic reading pending IMPRESSION/REPORT/PLAN 1. Chronic Right Hand Pain - with catching symptoms - set up for consult to OT and consult to Ortho - trial of prednisone burst Electronically Signed By: WILMAN MILES MD On: 10/08/2015 09:59 AM Source: [facility] POWER[facility]ART Document Id: [id number] TOR CRANE ENGINEER documented in this encounter Miscellaneous Notes Miscellaneous - Wilman Miles M.D. - 10/08/2015 10:00 AM CST Ambulatory Patient Summary [facility] [address], [address] [place], [place] [id number] Visit Information Name: NOEL GAVIN [facility] Number: [id number] Current Date: 10/08/2015 10:00:18 Physicians Attending Provider: WILMAN MILES MD Primary Care Provider: REGGIE RIVAS MD NOEL GAVIN has been given the following list [...] Take Indications/Special Instructions/Comments/Notes for Patient Medication Changes/Routing *cyclobenzaprine (cyclobenzaprine 5 mg oral tablet) 5 mg, Oral, three times a day as needed for Muscle spasm *ibuprofen (Advil Liquigel 200 mg oral capsule) See Instructions prn, per mom *methylPREDNISolone (methylPREDNISolone 4 mg oral tablet) See Instructions Follow package instructions *omeprazole (omeprazole 20 mg oral delayed release tablet) 20 mg, Oral, once a day *OXcarbazepine (OXcarbazepine 600 mg oral tablet) 300 mg, Oral, two times a day predniSONE (predniSONE 20 mg oral tablet) 2 Tablet(s), Oral, once a day x 7 day(s) New Routed to [address] [place] [address] *traZODone (traZODone 100 mg oral tablet) 100 mg, Oral, once a day (at bedtime) * You have let us know that you are not taking this medication as listed. Please talk with your primary care provider or the health care provider who prescribed the medication as soon as possible. Stop Taking the Following Medications: Medication list as of 10-08-15 10:00 Attention: If you have any medications at home that are not on this list, DO NOT take them until youcontact your provider for clarification. Give a copy of your medication list to your primary care provider. Update your medication list any time medications or doses are changed and carry your medication list at all times in case of emergency. Electronically Signed By: IWLMAN MILES MD Signed On:08-OCT-2015 10:00:02 Your Allergies & Intolerances Substance Reaction Symptoms Category Comments doxycycline Nausea and Vomiting Drug DOXYCYCLINE azithromycin Hives Drug AZITHROMYCIN DIHYDRATE Your Problem List Problem Status Onset Comments [...] online form. Youll be asked for your [facility] number which you can find at the top of this document. Your Goals/Additional instructions: Source: [facility] POWERCHART Document Id: [id number] TOR CRANE ENGINEER Miscellaneous - Wilman Miles M.D. - 10/08/2015 10:00 AM CST Ambulatory Discharge Medication List [facility] [address] [place], [place] [id number] Visit Information Name: NOEL GAVINJAYNA [facility] Number: [id number] Visit Date: 10/08/2015 10:00:16 Attending Provider: WILMAN MILES MD Primary Care Provider: REGGIE RIVAS MD NOEL GAVINJAYNA has been given the following list of medications: Your Medications It is important to take your medications as directed. Use a pill box or chart to help remind you to take your medications. Please let your doctor or nurse know if you have problems taking your medications. Medication/Strength How to Take Indications/Special Instructions/Comments/Notes for Patient Medication Changes/Routing *cyclobenzaprine (cyclobenzaprine 5 mg oral tablet) 5 mg, Oral, three times a day as needed for Muscle spasm *ibuprofen (Advil Liquigel 200 mg oral capsule) See Instructions prn, per mom *methylPREDNISolone (methylPREDNISolone 4 mg oral tablet) See Instructions Follow package instructions *omeprazole (omeprazole 20 mg oral delayed release tablet) 20 mg, Oral, once a day *OXcarbazepine (OXcarbazepine 600 mg oral tablet) 300 mg, Oral, two times a day predniSONE (predniSONE 20 mg oral tablet) 2 Tablet(s), Oral, once a day x 7 day(s) New Routed to [address] [place] [address] *traZODone (traZODone 100 mg oral tablet) 100 mg, Oral, once a day (at bedtime) * You have let us know that you are not taking this medication as listed. Please talk with your primary care provider or the health care provider who prescribed the medication as soon as possible. Stop Taking the Following Medications: Medication list as of 10-08-15 10:00 Attention: If you have any medications at home that are not on this list, DO NOT take them until youcontact your provider for clarification. Give a copy of your medication list to your primary care provider. Update your medication list any time medications or doses are changed and carry your medication list at all times in case of emergency. Electronically Signed By: WILMAN MILES MD Signed On:08-OCT-2015 10:00:02 Additional Information: Source: [facility] POWERCHART Document Id: [id number] TOR CRANE ENGINEER Miscellaneous - Laura Mejia L.P.N. - 10/08/2015 8:15 AM CST Health Assessment Health Assessment Entered On: 10/08/2015 8:16 TRACTOR CRANE ENGINEER Performed On: 10/08/2015 8:15 TRACTOR CRANE ENGINEER by LAURA MEJIA LPN Health Assessment Complete Health Assessment Complete or Modified : Annual Health Assessment Annual Health Assessment Completed : Yes LAURA MEJIA LPN - 10/08/2015 8:15 TRACTOR CRANE ENGINEER Nutrition Nutrition Risk Factors by History Adult : None COREENGAVIN LAURA MATHEMATICS IMPROVEMENT TEACHER - 10/08/2015 8:15 TRACTOR CRANE ENGINEER Functional Current Daily Living Assistance : None COREENGAVIN LAURA MATHEMATICS IMPROVEMENT TEACHER - 10/08/2015 8:15 TRACTOR CRANE ENGINEER Dependent Habits Tobacco Use/Currently Using : Yes Tobacco Use/Advised to Quit : Yes Exposure to Tobacco Smoke : Patient smokes Smoking Status : Current every day smoker COREENGAVIN LAURA MATHEMATICS IMPROVEMENT TEACHER - 10/08/2015 8:15 TRACTOR CRANE ENGINEER Tobacco Use Grid Cigarette Use Packs/Day : 1 COREENGAVIN LAURA STEVE 10/08/2015 8:15 TRACTOR CRANE ENGINEER Alcohol Use : No LAURA MEJIA MATHEMATICS IMPROVEMENT TEACHER 10/08/2015 8:15 TRACTOR CRANE ENGINEER Recreational Drug Use Grid Drug Use : None COREENGAVINLAURA [facility] 10/08/2015 8:15 TRACTOR CRANE ENGINEER Psychosocial Domestic Abuse Concerns : None Behavioral Health Screen/Safety Assmt : No Holiness Preference : No qualifying data available. LAURA MEJIA MATHEMATICS IMPROVEMENT TEACHER - 10/08/2015 8:15 TRACTOR CRANE ENGINEER Advance Directive Advanced Directives : No Advance Directive Additional Information : No COREENGAVIN LAURA STEVE 10/08/2015 8:15 TRACTOR CRANE ENGINEER Educ Needs Learning Style Preference Adult Grid Patient : None Family : None JACKIE LAURA STEVE - 10/08/2015 8:15 TRACTOR CRANE ENGINEER Source: [facility] POWER[facility]ART Document Id: [id number] TRACTOR CRANE ENGINEER!31 TOR CRANE ENGINEER Miscellaneous - Laura Mejia L.PJacielNJaciel - 10/08/2015 8:13 AM CST Adult Epic Beacon Analyst Intake/History Adult Epic Beacon Analyst Intake/History Entered On: 10/08/2015 8:15 TRACTOR CRANE ENGINEER Performed On: 10/08/2015 8:13 TRACTOR CRANE ENGINEER by LAURA MEJIA LPN Intake Chief Complaint : injury to right hand 1 year ago, now reinjured Peripheral Pulse Rate : 60 /min Heart Rhythm : Regular Systolic Blood Pressure : 92 mmHg Diastolic Blood Pressure : 50 mmHg (LOW) NIBP Mean : 64 mmHg BP Location : Left upper extremity Blood Pressure Cuff Size : Large Height : 180 cm(Converted to: 5 ft 11 inch(es), 71 inch(es)) Actual Weight : 76.2 kg(Converted to: 168 lb 0 oz) Weight Source : Standing scale Dosing Weight Clinic : 76.2 kg Clinic BSA : 1.95 Body Mass Index : 23.52 kg/m2 LAURA MEJIA [facility] 10/08/2015 8:13 TRACTOR CRANE ENGINEER General Info Information Given By : Patient Preferred Communication Mode : Verbal Languages : Latvian Is Patient Female and 13-50 no hysterectomy : No LAURA MEJIA [facility] 10/08/2015 8:13 TRACTOR CRANE ENGINEER Subjective Pain Symptoms : Yes LAURA MEJIA [facility] 10/08/2015 8:13 TRACTOR CRANE ENGINEER Pain Scale Pain Scale Verbal 0-10 : Open LAURA MEJIA [facility] 10/08/2015 8:13 TRACTOR CRANE ENGINEER Pain Pain Assessment Grid Pain 1 Location : Hand Intensity : 10 LAURA MEJIA [facility] 10/08/2015 8:13 TRACTOR CRANE ENGINEER Dependent Habits Tobacco Use/Currently Using : Yes Tobacco Use/Advised to Quit : Yes Exposure to Tobacco Smoke : Patient smokes Smoking Status : Current every day smoker LAURA MEJIA [facility] 10/08/2015 8:13 TRACTOR CRANE ENGINEER Tobacco Use Grid Cigarette Use Packs/Day : 1 LAURA MEJIA [facility] 10/08/2015 8:13 TRACTOR CRANE ENGINEER Recreational Drug Use Grid Drug Use : None LAURA MEJIA [facility] 10/08/2015 8:13 TRACTOR CRANE ENGINEER Source: [facility] POWER[facility]ART Document Id: [id number] TRACTOR CRANE ENGINEER!41 TOR CRANE ENGINEER documented in this encounter Plan of Treatment Not on filedocumented as of this encounter Visit Diagnoses Not on filedocumented in this encounter
--- OUTSIDE RECORDS SUMMARY | 2022-09-25 11:03 | XMS_ITS | Encounter Summary ---
:1990 Author Organization [facility] Address [address] [place] [address] Care Team Providers Name Role Phone Unavailable Primary Care Provider Unavailable Encounter Details Date Type Department Care Team Description 05/27/2013 Hospital Encounter HX NO MAPPING Provider, Historical [...] Miscellaneous - Conversion, Historical Provider Ser - 05/27/2013 12:00 AM CDT [id number] Client: [facility] After Hours ExpertRN Call ID: [id number] Patient Name: Raza Service Date/Time: May 27, 2013 23:36 Duration: 00:07:20 Age: 22 Y Provider: Tiara Vergara R.N. Pager: Birthdate: 1990 Sex: M Address: City: [place], [place] Service: [facility] CHIEF COMPLAINT / PURPOSE OF VISIT Triage [...] the product is not hazardous. Calling from: [phone] The patient is with the caller Ability [...] Control center, warm transfer done Carepoints reviewed: ?? Tilt his head toward the injured side, so the chemical doesn't wash into the uninjured eye. ?? Keep eyelids open as much as possible while flushing the eye. If too painful and eyes are automatically closed, gently lift eyelids to help carry the water to all surfaces of the eye. ?? Don't rub the eye. ?? Contact the nurse line for further advice if his symptoms persist or worsen, or if new symptoms develop. FINAL CALL DETAILS: Deliver call summary through email - Not eligible Intended level of care if assessment was not available: Routine appointment Caller verbalized an understanding of the information and instructions given Caller's primary language: Emirati PERTINENT NEGATIVES No: charts accessed (none selected from list) Source: [facility] Document Id: [id number] documented in this encounter Plan of Treatment Not on filedocumented as of this encounter Visit Diagnoses Not on filedocumented in this encounter
--- OUTSIDE RECORDS SUMMARY | 2022-09-25 11:03 | XMS_ITS | Encounter Summary ---
:1990 Author Organization [facility] Address [address] [place] [address] Care Team Providers Name Role Phone Unavailable Primary Care Provider Unavailable Encounter Details Date Type Department Care Team Description 05/11/2014 Hospital Encounter HX NO MAPPING Lyric Cota P.ATrell [address] [place], [place] [address] (Wo rk) Social History [...] Sign Reading Time Taken Comments Blood Pressure 118/58 05/11/2014 2:44 PM CDT Pulse 87 05/11/2014 2:44 PM CDT Temperature - - Respiratory Rate - - Oxygen Saturation - - Inhaled Oxygen Concentration - - Weight - - Height - - Body Mass Index - - documented in this encounter Discharge Summaries Conversion, Historical Provider Ser - 05/11/2014 4:13 PM CDT ED Discharge Instructions [facility] [address] [facility] [place] [address] Name: JOHN GAVIN Date of : 1990 12:00 AM Visit Date: 05/11/2014 2:34 PM [facility] Number: [id number] Address: [address] [address] [id number] Primary Care Provider: REGGIE RIVAS MD IMPORTANT: [facility] in [place] would like to thank you for allowing us to assist you with your healthcare needs. The following includes patient education materials and information regarding your injury/illness. Diagnosis: Strain Neck Active Follow-Up Instructions: With: Address: When: REGGIE RIVAS [address] [place] [address] Business (1) Within As Needed Comments: Your Upcoming Appointments: Date Time Location Reason Provider No Appointments found Patient Education Materials: [id number] NECK SPRAIN or STRAIN A sudden force that causes turning or bending of the neck (such as in a car accident) can stretch ortear muscles (strain) and ligaments (sprain) and cause neck pain. Sometimes neck pain occurs after asimple awkward movement. In either case, muscle spasm is commonly present and contributes to the pain. Unless you had a forceful physical injury (for example, a car accident or fall), X-rays are usually not ordered for the initial evaluation of neck pain. If pain continues and dose not respond to medical treatment, x-rays and other tests may be performed at a later time. HOME CARE: 1) You may feel more soreness and spasm the first few days after the injury. Reduce your activity level until symptoms begin to improve. 2) When lying down, use a comfortable pillow that supports the head and keeps the spine in a neutralposition. The position of the head should not be tilted forward or backward. 3) Use ice packs (ice in a plastic bag, wrapped in a towel) to treat acute pain. Apply for 20 minutes every 2-4 hours during the first two days. Then, begin local heat (hot shower, hot bath or heating pad) and massage to reduce muscle spasm. Some patients feel best alternating hot and cold treatments,or just staying with one method only. Do what feels the best to you and gives the most relief. 4) You may use acetaminophen (Tylenol) or ibuprofen (Motrin, Advil) to control pain, unless another pain medicine was prescribed. [ NOTE : If you have chronic liver or kidney disease or ever had a stomach ulcer or GI bleeding, talk with your doctor before using these medicines.] FOLLOW UP with your physician or this facility if your symptoms do not show signs of improvement after one week. Physical therapy may be needed. [NOTE: A radiologist will review any X-rays or CT scans that were taken. We will notify you of any new findings that may affect your care.] GET PROMPT MEDICAL ATTENTION if any of the following occur: -- Pain becomes worse or spreads into your arms -- Weakness or numbness in one or both arms ?? [id number] Luis Miguel [facility], [address] [place] [address], [place] [address]. All rights reserved. This information is not intended as a substitute for professional medical care. Always follow your healthcare professional's instructions. ED Tests and Procedures: Order Status XR Cervical Spine 2 or 3 views Canceled XR Cervical Spine 4 or 5 views Completed Discharge Prescriptions & Home Medications: Medication/Strength Dose Route Frequency Indications/Special Instructions/Comments/Notes acetaminophen-codeine (Tylenol with Codeine #3 oral tablet) 1 tab(s) Oral every 6 hours as needed for Pain No more than 4,000mg acetaminophen/24hrs methylPREDNISolone (Medrol Dosepak 4 mg oral tablet) See special instructions Oral as directed for 6Days cyclobenzaprine (Flexeril 5 mg oral tablet) 5 mg Oral three times a day as needed for Muscle spasm *cyclobenzaprine (cyclobenzaprine 5 mg oral tablet) 5 [...] ride home with a responsible alliance party. IASHLEY ALEXANDER LEELAVERE , or responsible alliance party [...] document has images extracted. Please consider using [employer] for all your patient education needs. Source: [facility] [employer] Document Id: [id number] Conversion, Historical Provider Ser - 05/11/2014 4:13 PM CDT ED Depart Summary [facility] Emergency Department Clinical Discharge Summary PERSON INFORMATION Name JOHN GAVIN Age 23 Years 1990 12:00 AM Sex Male Language Ugandan PCP REGGIE RIAVS MD Marital Status Single Visit Id Visit Reason Injury of neck; neck pain/injury Specialty Enc Type Hospital Outpatient Med Service Urgent Care Referred by Track Group [facility] ED Discharge 05/11/2014 4:13 PM Tracking Id [id number] Checkout 05/11/2014 4:13 PM Checkin 05/11/2014 2:34 PM Acuity 3 -Urgent Dispo Type * Discharged to Home or Self Care Arrival 05/11/2014 2:34 PM Reg Status Complete LOS 000 01:39 Address: [address] [place] [id number] Comment: PROVIDER INFORMATION Provider Role Provider Contact Time NE TOMLINSON LPN ED Nurse 05/11/14 14:47 LYRIC COTA PA-C ED Provider 05/11/14 14:54 DIAGNOSIS Strain Neck Active Comment: PATIENT EDUCATION INFORMATION Instructions: NECK SPRAIN/STRAIN Follow up: With: Address: When: REGGIE RIVAS [address] [facility] [place] [address] [employer] (1) Within As Needed Comments: [facility] Document Id: [id number] documented in this encounter Progress Notes Lyric Cota P.A.-C. - 05/11/2014 2:34 PM CDT [id number] Patient is a 23-year-old male who is presenting to Urgent Care today with a complaint of neck pain. Patient reports that 2 days ago, he dove into a pond and hit his head. He twisted it to the left. He is having pain over the sternocleidomastoid muscle on the right side. He has been taking ibuprofen wit hout any significant relief. He is reporting mild blurry vision today. Denies any headache. Reports that he had diarrhea yesterday, none since then. No nausea. PHYSICAL EXAMINATION VITAL SIGNS: Noted. GENERAL APPEARANCE: A 23-year-old male, in no acute distress. HEENT: Head is atraumatic. Eyes: Pupils are equal, round, reactive to light. Extraocular movements are normal. Nasal passages moist and pink. Throat moist and pink. NECK: Patient is having pain with palpation over the right sternocleidomastoid muscle. Range of motion of the neck is appropriate. There are no bruises, ecchymosis, or swelling noted. LUNGS: Clear to auscultation bilaterally. CHEST: With normal heart tones, S1, S2. NEUROLOGIC: Cranial nerves II through XII are grossly intact. He is alert and oriented. DIAGNOSTICS Cervical spine x-ray in Urgent Care today is negative for acute pathology. IMPRESSION/REPORT/PLAN Neck muscles sprain/strain. PLAN: Flexeril and Medrol Dosepak as prescribed. Also gave him a prescription of Tylenol No. 3, twelve tablets, no refills, 1 tablet every 6 hours as needed for pain. Advised to use some heating pad over the affected area as well. I did give him a note to be off work tomorrow. He will return to work on May 13, 2014, without any restrictions. Follow up if any new concerning or worsening symptoms. Followup with his PCP is recommended. He understands and agrees with the plan. He left in no acute distress. Lyric Cota P.A.-C./magaly Electronically Signed By: LYRIC COTA PA-C On: 05/14/2014 02:00 PM Source: [facility] MHSDOLBEYNONRADSYS Document Id: [id number] documented in this encounter H&P Notes Ne Tomlinson R.N. - 05/11/2014 2:44 PM CDT Urgent Care Intake Urgent Care Intake Entered On: 05/11/2014 14:46 CDT Performed On: 05/11/2014 14:44 CDT by NE TOMLINSON LPN Intake Chief Complaint : neck injury Onset of Symptoms : 2 days ago Temperature Core : 37.4 DegC(Converted to: 99.3 DegF) Peripheral Pulse Rate : 87 /min Systolic Blood Pressure : 118 mmHg Diastolic Blood Pressure : 58 mmHg NIBP Mean : 78 mmHg SpO2 : 98 % NE TOMLINSON LPN - 05/11/2014 14:44 CDT General Info Information Given By : Patient Languages : Ugandan NE TOMLINSON LPN - 05/11/2014 14:44 CDT Subjective Pain Symptoms : Yes NE TOMLINSON LPN - 05/11/2014 14:44 CDT Pain Pain Assessment Grid Pain 1 Location : Neck Intensity : 8 NE TOMLINSON LPN - 05/11/2014 14:44 CDT Dependent Habits Tobacco Use/Currently Using : Yes Smoking Status : Current every day smoker NE TOMLINSON LPN - 05/11/2014 14:44 CDT Nutrition Nutrition Risk Factors by History Adult : None KENNYTATIANA HICKSMEL Shy DIAMOND CLEAVER - 05/11/2014 14:44 CDT Functional Current Daily Living Assistance : None NE TOMLINSON DIAMOND CLEAVER - 05/11/2014 14:44 CDT Psychosocial Domestic Abuse Concerns : None Sikhism Preference : No qualifying data available. KENNYNE HICKS LPN - 05/11/2014 14:44 CDT Advance Directive Advanced Directives : No NE TOMLINSON LPN - 05/11/2014 14:44 CDT Educ Needs Learning Style Preference Adult Grid Patient : None Family : None NE TOMLINSON LPN - 05/11/2014 14:44 CDT [facility] Document Id: [id number] CDT!36 documented in this encounter ED Notes Conversion, Historical Provider Ser - 05/11/2014 4:13 PM CDT ED Disposition Summary ED Disposition Summary Entered On: 05/11/2014 16:13 CDT Performed On: 05/11/2014 16:13 CDT by MICHA BAHENA LPN ED Disposition Summary Printed Discharge Instructions Given to Patient : Yes MICHA BAHENA LPN - 05/11/2014 16:13 CDT Source[facility] Document Id: [id number] CDT!3 Christy Mancilla RJacielNJaciel - 05/11/2014 2:34 PM CDT ED Triage Assessment Document Has Been Updated ED Triage Assessment Entered On: 05/11/2014 14:38 CDT Performed On: 05/11/2014 14:34 CDT by CHRISTY MANCILLA RN Reason For Visit (As Of: 05/11/2014 14:38:01 CDT) Problems(Active) Attention Deficit Disorder of Childhood with Hyperactivity (ICD-9-CM :314.01 ) Name of Problem: Attention Deficit Disorder of Childhood with Hyperactivity ; Onset Date: 06/08/2001 ; Confirmation: Confirmed ; Classification: Medical ; Code: 314.01 ; Contributor System: [facility]_HX_PR_PlotWattOAD ; Last Updated:02/24/2014 15:28 CDT ; Life Cycle Status: Active ; Vocabulary: ICD-9-CM ; Comments: - Attention deficit disorder with hyperactivity Bipolar I Disorder, Most Recent Episode (Or Current) Unspecified (ICD-9-CM :296.7 ) Name of Problem:Bipolar I Disorder, Most Recent Episode (Or Current) Unspecified ; Onset Date: 01/07/2006 ; Confirmation: Confirmed ; Classification: Medical ; Code: 296.7 ; Contributor System: [facility]_HX_PR_PlotWattOAD ; Last Updated: 02/24/2014 15:28 CDT ; Life Cycle Status: Active ; Vocabulary: ICD-9-CM ; Comments: - Bipolar I disorder, most recent episode (or current) unspecified Constipation, Unspecified (ICD-9-CM :564.00 ) Name of Problem: Constipation, Unspecified ; Onset Date: 03/12/2004 ; Confirmation: Confirmed ; Classification: Medical ; Code: 564.00 ; Contributor System: [employer]_HX_PR_PlotWattOAD ; Last Updated: 02/24/2014 15:28 CDT ; Life Cycle Status: Active ; Vocabulary: ICD-9-CM ; Comments: - Unspecified constipation Headache (ICD-9-CM :784.0 ) Name of Problem: Headache ; Onset Date: 06/08/2001 ; Confirmation: Confirmed ; Classification: Medical ; Code: 784.0 ; Contributor System: [employer]_HX_PR_UPLOAD ; Last Updated: 02/24/2014 15:28 CDT ; Life Cycle Status: Active ; Vocabulary: ICD-9-CM ; Comments: - Headache Tic Disorder, Unspecified (ICD-9-CM :307.20 ) Name of Problem: Tic Disorder, Unspecified ; Onset Date: 07/20/2002 ; Confirmation: Confirmed ; Classification: Medical ; Code: 307.20 ; Contributor System: [facility]_HX_PR_UPLOAD ; Last Updated: 02/24/2014 15:28 CDT ; Life Cycle Status: Active ; Vocabulary: ICD-9-CM ; Comments: - Tic disorder, unspecified Unspecified Sleep Disturbance (ICD-9-CM :780.50 ) Name of Problem: Unspecified Sleep Disturbance ; Onset Date: 07/04/2003 ; Confirmation: Confirmed ; Classification: Medical ; Code: 780.50 ; Contributor System: [facility]_HX_PR_UPLOAD ; Last Updated: 02/24/2014 15:28 CDT ; Life Cycle Status: Active ; Vocabulary: ICD-9-CM ; Comments: - Sleep disturbance, unspecified Diagnoses(Active) Injury of neck Date: 05/11/2014 ; Diagnosis Type: Reason For Visit ; Confirmation: Complaint of ; Clinical Dx: Injury of neck ; Classification: Medical ; Clinical Service: Emergency medicine ; Code: PNED ; Probability: 0 ; Diagnosis Code: [id number] Triage Chief Complaint Description : Wednesday pm dove into a pond and hit head and twisted it to left. Neck painful more on right side Information Given By : Patient Accompanied By : Spouse Mode of Arrival ED : Private vehicle Track : Medical Languages : Ugandan Patient Informed of Triage Location : Urgent Care Treatments Prior to Arrival : None CHRISTY MANCILLA RN - 05/11/2014 14:34 CDT Pain Assessment Pain Symptoms : Yes CHRISTY MANCILLA RN - 05/11/2014 14:34 CDT Pain Pain Assessment Grid Pain 1 Location : Neck Laterality : Right Intensity : 8 CHRISTY MANCILLA RN - 05/11/2014 14:34 CDT BREEZY DCP GENERIC CODE Tracking Acuity : 3 -Urgent Tracking Group : [facility] ED CHRISTY MANCILLA RN - 05/11/2014 14:34 CDT Source: [employer] Document Id: [id number] CDT!22 documented in this encounter Plan of Treatment Not on filedocumented as of this encounter Visit Diagnoses Not on filedocumented in this encounter
--- OUTSIDE RECORDS SUMMARY | 2022-09-25 11:03 | XMS_ITS | Encounter Summary ---
:1990 Author Organization [facility] Address [address] [place] [address] Care Team Providers Name Role Phone Unavailable Primary Care Provider Unavailable Encounter Details Date Type Department Care Team Description 09/16/2008 Hospital Encounter HX NO MAPPING Mariely Osuna M .D. Social History Tobacco Use Types [...]
--- OUTSIDE RECORDS SUMMARY | 2022-09-25 11:03 | XMS_ITS | Encounter Summary ---
:[address] [facility] Address [address] [place] [address] Care Team Providers Name Role Phone Unavailable Primary Care Provider Unavailable Encounter Details Date Type Department Care Team Description 09/06/2014 Hospital Encounter HX [facility] Praveen Olmedo M .D., M.P.H. [address] [place], [place] [phone] (Wo rk) Social History [...] PM CDT documented as of this encounter Nursing Notes Arsh Burroughs L.P.N. - 09/06/2014 3:20 PM CDT Nurse Only Documentation Nurse Only Documentation Entered On: 09/06/2014 15:20 CDT Performed On: 09/06/2014 15:20 CDT by ARSH BURROUGHS LPN Nurse Only Documentation Nurse Only Visit Documentation : Pre employment uds for [employer] Uneventful collection. ARSH BURROUGHS LPN - 09/06/2014 15:20 CDT Source: [facility] [employer]CHART Document Id: [id number] CDT!3 documented in this encounter Plan of Treatment Not on filedocumented as of this encounter Visit Diagnoses Not on filedocumented in this encounter
--- OUTSIDE RECORDS SUMMARY | 2022-09-25 11:03 | XMS_ITS | Encounter Summary ---
:1990 Author Organization [facility] Address [address] [place] [address] Care Team Providers Name Role Phone Unavailable Primary Care Provider Unavailable Encounter Details Date Type Department Care Team Description 05/16/2012 Hospital Encounter HX NO MAPPING Addison Sidhu, P Dora. Social History Tobacco Use Types Packs/Day Years [...] documented as of this encounter Progress Notes Addison Sidhu - 05/16/2012 3:45 PM CDT [id number] SUBJECTIVE: Young adult male smoker who threw [...] of care. Smoking cessation is strongly advised. SADIE Troncoso/amari Source: [facility]WMCHXTRANSXRTFSYS Document Id: [id number] documented in this encounter Plan of Treatment Not on filedocumented as of this encounter Visit Diagnoses Not on filedocumented in this encounter
--- OUTSIDE RECORDS SUMMARY | 2022-09-25 11:03 | XMS_ITS | Encounter Summary ---
:1990 Author Organization [facility] Address [address] [place] [address] Care Team Providers Name Role Phone Unavailable Primary Care Provider Unavailable Encounter Details Date Type Department Care Team Description 07/27/2013 Hospital Encounter HX NO MAPPING Grover Can M.D. [address] [place], [place] [phone] (Wo rk) Social History [...]
--- OUTSIDE RECORDS SUMMARY | 2022-09-25 11:04 | XMS_ITS | Encounter Summary ---
:1990 Author Organization [facility] Address [address] [place] [address] Care Team Providers Name Role Phone Unavailable Primary Care Provider Unavailable Encounter Details Date Type Department Care Team Description 10/03/2007 Hospital [facility] Monster Baker P.A.-C., P.A. [address] [place] [phone] (Wo rk) Social History Tobacco [...] encounter Miscellaneous Notes Telephone Encounter - Monster Bkaer P.A.-C. - 10/03/2007 12:00 AM CST [id number] Called patient and left message to call clinic- when he gets message. Source: [facility] Document Id: [id number] Electronically signed by Bibi, [facility] Scroll Shear Operator [id number] at 05/03/2017 9:14 AM CDT documented in this encounter Plan of Treatment Not on filedocumented as of this encounter Visit Diagnoses Not on filedocumented in this encounter
--- OUTSIDE RECORDS SUMMARY | 2022-09-25 11:04 | XMS_ITS | Encounter Summary ---
:1990 Author Organization [facility] Address [address] [place] [address] Care Team Providers Name Role Phone Unavailable Primary Care Provider Unavailable Encounter Details Date Type Department Care Team Description 09/20/2006 Hospital Encounter HX [facility] Maci Osuna M.D. Social History [...] Miscellaneous Notes Telephone Encounter - Lily Sears L.P.N. - 09/20/2006 12:00 AM CDT [id number] Faxed request from pharmacy,will be directly faxed back if approved. Source: [facility] Document Id: [id number] documented in this encounter Plan of Treatment Not on filedocumented as of this encounter Visit Diagnoses Not on filedocumented in this encounter
--- OUTSIDE RECORDS SUMMARY | 2022-09-25 11:04 | XMS_ITS | Encounter Summary ---
:1990 Author Organization [facility] Address [address] [place] [address] Care Team Providers Name Role Phone Unavailable Primary Care Provider Unavailable Encounter Details Date Type Department Care Team Description 10/02/2007 Hospital Encounter HX NO MAPPING Monster Baker P.A.-C., P.A. [address] [place], [place] [phone] (Wo rk) Social History [...] Progress Notes Conversion, Historical Provider Ser - 10/02/2007 10:30 AM CST [id number] SUBJECTIVE: The patient presents along with family complaining of some left middle finger discomfort times a half hour ago. He states he was wrestling with friends and cousins when his left middle finger was sat on. He states that the pain is not present when moving; however is he does move it the pain is 3 of 10. He locates this in the PIP [...] I do not appreciate any bony deformity. Mirror Department Supervisor strength 5/5 with abduction, adduction, flexion and [...] and anti-inflammatory medications as discussed. SADIE Tom/nellie Source[facility] Document Id: [id number] documented in this encounter Miscellaneous Notes Miscellaneous - Monster Baker P.A.-C. - 10/02/2007 10:30 AM CST [id number] John Gavin [address] [place] [phone] October 04, 2007 Dear John I am writing you concerning your recent imaging study obtained at the clinic. Your x-ray has been reviewed by the radiologist and the findings are as follows. FINGER(S) LEFT 2-3 VIEW Oct 02, 2007 10:46:00 AM HISTORY: Injury. FINDINGS: Three views of the left ring finger show a tiny avulsion fragment at the volar base of the middle phalanx. As a result, continue with the treatment plan discussed in the clinic. Re-check in two weeks or sooner if symptoms worsen or fail to improve. If you have any questions or would like to discuss this further with me please feel free to call the clinic. Thank you for allowing me to participate in your care. Sincerely, Monster Baker PA-C Department of Family Practice [facility] Source: [facility] Document Id: [id number] Electronically signed by Bibi, [facility] Construction Specialist [id number] at 05/03/2017 9:14 AM CDT documented in this encounter Plan of Treatment Not on filedocumented as of this encounter Visit Diagnoses Not on filedocumented in this encounter
--- OUTSIDE RECORDS SUMMARY | 2022-09-25 11:04 | XMS_ITS | Encounter Summary ---
:1990 Author Organization [facility] Address [address] [place] [address] Care Team Providers Name Role Phone Unavailable Primary Care Provider Unavailable Encounter Details Date Type Department Care Team Description 10/19/2007 Hospital Encounter HX [facility] Bebeto Barnhart O.D. Social History Tobacco Use [...] as of this encounter Progress Notes Bebeto Faulkner O.D. - 10/19/2007 9:00 AM CST [id number] CLINIC ENCOUNTER SLIT LAMP EXAM: Shows angles [...] Reevaluate in two years, sooner if problems. Daksha Benson cc: Source: [facility] UNITHXTRANSXSYS Document Id: [id number] Electronically signed by Conversion, [facility] [place] Latent Print Examiner [id number] at 05/03/2017 9:14 AM CDT Bebeto Faulkner O.D. - 10/19/2007 9:00 AM CST [id number] John Gavin is here for an exam. ON EXAM: Near point convergence: to nose. Mobility: FROM. Pupils: PERRLA, MG and no afferent defect. Visual Field: Confrontation, WNL OD & OS. COVER:6 X' Induced Phorias: Distance: unable . Near:. Vertical Phoria:. Source: [facility] RWMCHXTRANSXRTFSYS Document Id: [id number] Electronically signed by Conversion, [facility] [place] Latent Print Examiner [id number] at 05/03/2017 9:14 AM CDT Conversion, Historical Provider Ser - 10/19/2007 9:00 AM CST [id number] Pain Questionnaire: Is your visit today because [...] HE IS LIGHT SENSITIVE AT TIMES. Starla Gomez 10/19/2007 REVIEW OF SYSTEMS: Skin: negative. Eyes: negative. Ears/Nose/Throat: negative. Respiratory: negative. Cardiovascular: negative. Gastrointestinal: negative. Genitourinary: negative. Musculoskeletal: negative. Neurologic: negative. Psychiatric: negative. Hematologic/Lymphatic/Immunologic: negative. Endocrine: negative. MEDICATIONS: Current outpatient prescriptions Medication Sig RISPERDAL 0.5 MG OR TABS 2 x a dya TRILEPTAL 600 MG OR TABS once a day CONCERTA 54 MG OR TBCR one 54 mg tab daily TRAZODONE HCL 50 MG OR TABS 1 bedtime WESTCORT 0.2 % EX CREA Apply to affected area BID ADVIL 200 MG OR CAPS prn, per mom . FAMILY HISTORY: Family History Problem Relation Neurological Mother migraine headaches Neurological Paternal Grandmother migraine headaches Depression Father Committed suicide Psychiatry Father Mental illness Alcohol/Drug Paternal family with history of depression,alcohol, drugs & social abuse Respiratory Paternal Grandfather Emphysema Hypertension Paternal Grandmother Heart Paternal Grandmother Heart [place], [place] Respiratory Father Asthma Respiratory Mother Asthma Respiratory Brother Asthma Source: [facility] RWHXTRANSXRTFSYS Document Id: [id number] documented in this encounter Plan of Treatment Not on filedocumented as of this encounter Visit Diagnoses Not on filedocumented in this encounter
--- OUTSIDE RECORDS SUMMARY | 2022-09-25 11:04 | XMS_ITS | Encounter Summary ---
:1990 Author Organization [facility] Address [address] [place] [address] Care Team Providers Name Role Phone Unavailable Primary Care Provider Unavailable Encounter Details Date Type Department Care Team Description 12/15/2007 Hospital Encounter HX [facility] Maci Osuna M.D. Social History [...] encounter Progress Notes Mariely Osuna M.D. - 12/15/2007 1:40 PM CST [id number] S: John presents for wart treatment. He [...] testes with doppler flow. Consider urology consult. Source: [facility] RWMCHXTRANSXRTFSYS Document Id: [id number] documented in this encounter Plan of Treatment Not on filedocumented as of this encounter Visit Diagnoses Not on filedocumented in this encounter
--- OUTSIDE RECORDS SUMMARY | 2022-09-25 11:04 | XMS_ITS | Encounter Summary ---
:1990 Author Organization [facility] Address [address] [place] [address] Care Team Providers Name Role Phone Unavailable Primary Care Provider Unavailable Encounter Details Date Type Department Care Team Description 04/08/2006 Hospital Encounter HX [facility] Provider, Miguelangel valencia Social History Tobacco Use Types Packs/Day Years [...]
--- OUTSIDE RECORDS SUMMARY | 2022-09-25 11:04 | XMS_ITS | Encounter Summary ---
:1990 Author Organization [facility] Address [address] [place] [address] Care Team Providers Name Role Phone Unavailable Primary Care Provider Unavailable Encounter Details Date Type Department Care Team Description 10/06/2007 Hospital Encounter [facility] Maci [...] encounter Progress Notes Mariely Osuna M.D. - 10/06/2007 11:30 AM CST [id number] SUBJECTIVE: John is a 17 year old [...] if symptoms notentirely resolved when complete medication. Source: [facility] RWHXTRANSXRTFSYS Document Id: [id number] Electronically signed by Conversion, [facility] Paper Slitter [id number] at 05/03/2017 9:14 AM CDT documented in this encounter Plan of Treatment Not on filedocumented as of this encounter Visit Diagnoses Not on filedocumented in this encounter
--- OUTSIDE RECORDS SUMMARY | 2022-09-25 11:04 | XMS_ITS | Encounter Summary ---
:1990 Author Organization [facility] Address [address] [place] [address] Care Team Providers Name Role Phone Unavailable Primary Care Provider Unavailable Encounter Details Date Type Department Care Team Description 06/21/2006 Hospital Encounter HX [facility] Maci Osuna M.D. Social [...] Encounter - Conversion, Historical Provider Ser - 06/21/2006 12:00 AM CDT [id number] Faxed request from pharmacy,will be directly faxed back if approved. Will you fill in pcp's absence? Source[facility] Document Id: [id number] documented in this encounter Plan of Treatment Not on filedocumented as of this encounter Visit Diagnoses Not on filedocumented in this encounter
--- OUTSIDE RECORDS SUMMARY | 2022-09-25 11:04 | XMS_ITS | Encounter Summary ---
:1990 Author Organization [facility] Address [address] [place] [address] Care Team Providers Name Role Phone Unavailable Primary Care Provider Unavailable Encounter Details Date Type Department Care Team Description 04/22/2007 Hospital Encounter HX [facility] Maci Osuna M.D. Social History [...] encounter Progress Notes Mariely Osuna M.D. - 04/22/2007 8:50 AM CDT [id number] Subjective: The patient is here for follow up of warts. Objective: Exam discloses wart(s) on the dorsum of both fingers decreased in size with some now absent. Largestwart with definite decrease in size proximally still with thick annual aspect distally. Assessment: Warts, improved, not yet resolved. Plan: Repeat Liquid Nitrogen was applied; continue to see at intervals until resolved. Source: [facility] Document Id: [id number] Electronically signed by Conversion, [facility] Final Inspector Truck Trailer [id number] at 05/03/2017 6:16 AM CDT documented in this encounter Plan of Treatment Not on filedocumented as of this encounter Visit Diagnoses Not on filedocumented in this encounter
--- OUTSIDE RECORDS SUMMARY | 2022-09-25 11:04 | XMS_ITS | Encounter Summary ---
:1990 Author Organization [facility] Address [address] [place] [address] Care Team Providers Name Role Phone Unavailable Primary Care Provider Unavailable Encounter Details Date Type Department Care Team Description 04/01/2006 Hospital Encounter [facility]X [facility] [...]
--- OUTSIDE RECORDS SUMMARY | 2022-09-25 11:04 | XMS_ITS | Encounter Summary ---
:1990 Author Organization [facility] Address [address] [place] [address] Care Team Providers Name Role Phone Unavailable Primary Care Provider Unavailable Encounter Details Date Type Department Care Team Description 11/18/2006 Hospital Encounter HX [facility] Martha Caruso R.N. [address] [place] [phone] Social History Tobacco Use Types Packs/Day Years [...] this encounter Miscellaneous Notes Telephone Encounter - Hilda Caruso R.N. - 11/18/2006 12:00 AM MEDICAL DATA ENTRY CLERK [id number] Requesting antibiotic for him since brother was dx with strep throat yesterday. He is c/o sore throat, has fever today. Source: [facility] Document Id: [id number] Telephone Encounter - Mariely Osuna M.D. - 11/18/2006 12:00 AM MEDICAL DATA ENTRY CLERK [id number] Needs testing. Can come in for strep test only. Source: [facility] Document Id: [id number] Electronically signed by Bibi [facility] Tube Builder [id number] at 05/03/2017 1:04 PM CDT Telephone Encounter - Carly Hart R.N. - 11/18/2006 12:00 AM MEDICAL DATA ENTRY CLERK [id number] Left message on answering machine.Told to call back if coming. Source: [facility] RWHXTRANSXRTFSYS Document Id: [id number] Electronically signed by Conversion, [facility] Tube Builder [id number] at 05/03/2017 1:04 PM CDT documented in this encounter Plan of Treatment Not on filedocumented as of this encounter Visit Diagnoses Not on filedocumented in this encounter
--- OUTSIDE RECORDS SUMMARY | 2022-09-25 11:04 | XMS_ITS | Encounter Summary ---
:1990 Author Organization [facility] Address [address] [place] [address] Care Team Providers Name Role Phone Unavailable Primary Care Provider Unavailable Encounter Details Date Type Department Care Team Description 03/24/2006 Hospital Encounter HX [facility] [...]
--- OUTSIDE RECORDS SUMMARY | 2022-09-25 11:04 | XMS_ITS | Encounter Summary ---
:1990 Author Organization [facility] Address [address] [place] [address] Care Team Providers Name Role Phone Unavailable Primary Care Provider Unavailable Encounter Details Date Type Department Care Team Description 03/28/2007 Hospital Encounter HX [facility] Maci Osuna M.D. Social [...] encounter Progress Notes Mariely Osuna M.D. - 03/28/2007 8:30 AM CDT [id number] Subjective: The patient is here for follow [...] progress in largest wart at next visit. Source: [facility] Document Id: [id number] Electronically signed by Bibi, [facility] Grades 9 Through 12 Teacher [id number] at 05/03/2017 7:36 AM CDT documented in this encounter Plan of Treatment Not on filedocumented as of this encounter Visit Diagnoses Not on filedocumented in this encounter
--- OUTSIDE RECORDS SUMMARY | 2022-09-25 11:04 | XMS_ITS | Encounter Summary ---
:1990 Author Organization [facility] Address [address] [place] [address] Care Team Providers Name Role Phone Unavailable Primary Care Provider Unavailable Encounter Details Date Type Department Care Team Description 04/12/2006 Hospital Encounter HX [facility] Maci Osuna M.D. Social History [...] encounter Progress Notes Mariely Osuna M.D. - 04/12/2006 2:40 PM CDT [id number] Small tick removed this am - concerned [...] of erythema/signs of infection and call prn. Source: [facility] Document Id: [id number] Electronically signed by Bibi [facility] Lining Layer [id number] at 05/03/2017 11:39 AM CDT documented in this encounter Plan of Treatment Not on filedocumented as of this encounter Visit Diagnoses Not on filedocumented in this encounter
--- OUTSIDE RECORDS SUMMARY | 2022-09-25 11:04 | XMS_ITS | Encounter Summary ---
:1990 Author Organization [facility] Address [address] [place] [address] Care Team Providers Name Role Phone Unavailable Primary Care Provider Unavailable Encounter Details Date Type Department Care Team Description 12/21/2007 Hospital Encounter HX NO MAPPING Mariely Osuna [...]
--- OUTSIDE RECORDS SUMMARY | 2022-09-25 11:04 | XMS_ITS | Encounter Summary ---
:1990 Author Organization [facility] Address [address] [place] [address] Care Team Providers Name Role Phone Unavailable Primary Care Provider Unavailable Encounter Details Date Type Department Care Team Description 10/01/2006 Hospital Encounter [facility]X [facility] Hong Tinoco M.D. [address] [place], [place] [address] (Wo rk) Social History [...] documented as of this encounter Progress Notes Otto Tinoco M.D. - 10/01/2006 8:40 AM CST [id number] SUBJECTIVE: Chief Complaint Patient presents with Cough deep cough X 3 weeks, gave augmentin from previous prescription that was never used-didn't seem to help symptoms. Cough worse at night. Nasal congestion and rhinorrhea Fever X 3 weeks off and on. Advil this am. Denies headache, wheezing and shortness of breath. Derm Problem wart on finger for over [...] gone or substantially smaller in 2-3 weeks. Source: [facility] RWHXTRANSXRTFSYS Document Id: [id number] Electronically signed by Conversion, [facility] Sculpture Instructor [id number] at 05/03/2017 5:01 PM CDT documented in this encounter Plan of Treatment Not on filedocumented as of this encounter Visit Diagnoses Not on filedocumented in this encounter
--- OUTSIDE RECORDS SUMMARY | 2022-09-25 11:04 | XMS_ITS | Encounter Summary ---
:1990 Author Organization [facility] Address [address] [place] [address] Care Team Providers Name Role Phone Unavailable Primary Care Provider Unavailable Encounter Details Date Type Department Care Team Description 03/14/2007 Hospital Encounter [facility]X [facility] Maci Osuna M.D. Social History Tobacco [...] encounter Progress Notes Mariely Osuna M.D. - 03/14/2007 8:30 AM CDT [id number] SUBJECTIVE: John is a 16 year old [...] warts.; continueto see at intervals until resolved. Source: [facility] RWMCHXTRANSXRTFSYS Document Id: [id number] documented in this encounter Plan of Treatment Not on filedocumented as of this encounter Visit Diagnoses Not on filedocumented in this encounter
--- OUTSIDE RECORDS SUMMARY | 2022-09-25 11:04 | XMS_ITS | Encounter Summary ---
:1990 Author Organization [facility] Address [address] [place] [address] Care Team Providers Name Role Phone Unavailable Primary Care Provider Unavailable Encounter Details Date Type Department Care Team Description 12/21/2007 Hospital Encounter [facility]X [facility] X[facility] Provider, Histori shonda Social History Tobacco Use Types Packs/Day Years [...]
--- OUTSIDE RECORDS SUMMARY | 2022-09-25 11:05 | XMS_ITS | Encounter Summary ---
:1990 Author Organization [facility] Address [address] [place] [address] Care Team Providers Name Role Phone Unavailable Primary Care Provider Unavailable Encounter Details Date Type Department Care Team Description 09/22/2005 Hospital Encounter [facility]X [facility] [...]
--- OUTSIDE RECORDS SUMMARY | 2022-09-25 11:05 | XMS_ITS | Encounter Summary ---
:1990 Author Organization [facility] Address [address] [place] [address] Care Team Providers Name Role Phone Unavailable Primary Care Provider Unavailable Encounter Details Date Type Department Care Team Description 03/08/2006 Hospital Encounter [facility] Provider, [facility] Social History Tobacco Use Types Packs/Day [...]
--- OUTSIDE RECORDS SUMMARY | 2022-09-25 11:05 | XMS_ITS | Encounter Summary ---
:1990 Author Organization [facility] Address [address] [place] [address] Care Team Providers Name Role Phone Unavailable Primary Care Provider Unavailable Encounter Details Date Type Department Care Team Description 03/21/2006 Hospital Encounter HX NO MAPPING Addison Sidhu, P .A.-C. Social History Tobacco Use Types Packs/Day Years [...]
--- OUTSIDE RECORDS SUMMARY | 2022-09-25 11:05 | XMS_ITS | Encounter Summary ---
:1990 Author Organization [facility] Address [address] [place] [address] Care Team Providers Name Role Phone Unavailable Primary Care Provider Unavailable Encounter Details Date Type Department Care Team Description 01/14/2006 Hospital Encounter [facility]X [facility] [...]
--- OUTSIDE RECORDS SUMMARY | 2022-09-25 11:05 | XMS_ITS | Encounter Summary ---
:1990 Author Organization [facility] Address [address] [place] [address] Care Team Providers Name Role Phone Unavailable Primary Care Provider Unavailable Encounter Details Date Type Department Care Team Description 12/29/2005 Hospital Encounter HX NO MAPPING Provider, Historical [...]
--- OUTSIDE RECORDS SUMMARY | 2022-09-25 11:05 | XMS_ITS | Encounter Summary ---
:1990 Author Organization [facility] Address [address] [place] [address] Care Team Providers Name Role Phone Unavailable Primary Care Provider Unavailable Encounter Details Date Type Department Care Team Description 12/30/2005 Hospital Encounter HX NO MAPPING Seda Mosley M.D. Social History Tobacco Use Types Packs/Day [...]
--- OUTSIDE RECORDS SUMMARY | 2022-09-25 11:05 | XMS_ITS | Encounter Summary ---
:1990 Author Organization [facility] Address [address] [place] [address] Care Team Providers Name Role Phone Unavailable Primary Care Provider Unavailable Encounter Details Date Type Department Care Team Description 05/12/2005 Hospital Encounter [facility] Juan Champagne M.D. [address] [place], [place] [address] (Wo rk) Social History Tobacco Use Types [...] documented as of this encounter Progress Notes Juan Champagne M.D. - 05/12/2005 9:10 AM CDT [id number] SUBJECTIVE: John Gavin is an 14 year [...] need for antibiotic treatment if Strep found. Source: [facility] RWMCHXTRANSXRTFSYS Document Id: [id number] Electronically signed by Bibi [facility] Chemist Steroids [id number] at 05/03/2017 6:11 PM CDT documented in this encounter Plan of Treatment Not on filedocumented as of this encounter Visit Diagnoses Not on filedocumented in this encounter
--- OUTSIDE RECORDS SUMMARY | 2022-09-25 11:05 | XMS_ITS | Encounter Summary ---
:1990 Author Organization [facility] Address [address] [place] [address] Care Team Providers Name Role Phone Unavailable Primary Care Provider Unavailable Encounter Details Date Type Department Care Team Description 03/18/2006 Hospital Encounter HX [facility] Provider, Miguelangel valencia Social History Tobacco Use [...] Encounter - Conversion, Historical Provider Ser - 03/18/2006 12:00 AM CDT [id number] Faxed request from pharmacy,will be directly faxed back if approved. Source: [facility] Document Id: [id number] documented in this encounter Plan of Treatment Not on filedocumented as of this encounter Visit Diagnoses Not on filedocumented in this encounter
--- OUTSIDE RECORDS SUMMARY | 2022-09-25 11:05 | XMS_ITS | Encounter Summary ---
:1990 Author Organization [facility] Address [address] [place] [address] Care Team Providers Name Role Phone Unavailable Primary Care Provider Unavailable Encounter Details Date Type Department Care Team Description 01/07/2006 Hospital Encounter [facility]X [facility] [...]
--- OUTSIDE RECORDS SUMMARY | 2022-09-25 11:05 | XMS_ITS | Encounter Summary ---
:1990 Author Organization [facility] Address [address] [place] [address] Care Team Providers Name Role Phone Unavailable Primary Care Provider Unavailable Encounter Details Date Type Department Care Team Description 02/25/2006 Hospital Encounter [facility]X [facility] [...]
--- OUTSIDE RECORDS SUMMARY | 2022-09-25 11:05 | XMS_ITS | Encounter Summary ---
:1990 Author Organization [facility] Address [address] [place] [address] Care Team Providers Name Role Phone Unavailable Primary Care Provider Unavailable Encounter Details Date Type Department Care Team Description 07/17/2005 Hospital Encounter [facility]X [facility] Provider, Miguelangel valencia Social History Tobacco [...]
--- OUTSIDE RECORDS SUMMARY | 2022-09-25 11:05 | XMS_ITS | Encounter Summary ---
:1990 Author Organization [facility] Address [address] [place] [address] Care Team Providers Name Role Phone Unavailable Primary Care Provider Unavailable Encounter Details Date Type Department Care Team Description 12/28/2005 Hospital Encounter [facility] [...] encounter Progress Notes Mariely Osuna M.D. - 12/28/2005 9:30 AM CST [id number] This office note has been dictated. Source: [facility] Document Id: [id number] Electronically signed by Bibi [facility] Product Line Manager [id number] at 05/03/2017 2:36 PM CDT documented in this encounter Plan of Treatment Not on filedocumented as of this encounter Visit Diagnoses Not on filedocumented in this encounter
--- OUTSIDE RECORDS SUMMARY | 2022-09-25 11:05 | XMS_ITS | Encounter Summary ---
:1990 Author Organization [facility] Address [address] [place] [address] Care Team Providers Name Role Phone Unavailable Primary Care Provider Unavailable Encounter Details Date Type Department Care Team Description 10/07/2005 Hospital Encounter HX [facility] Provider, Miguelangel valencia Social History [...] Progress Notes Conversion, Historical Provider Ser - 10/07/2005 4:00 PM CST [id number] This child qualifies for vaccination throught the [place] program because she (choose only one box in descending order):does not have health insurance. Source: [facility] Document Id: [id number] documented in this encounter Plan of Treatment Not on filedocumented as of this encounter Visit Diagnoses Not on filedocumented in this encounter
--- OUTSIDE RECORDS SUMMARY | 2022-09-25 11:05 | XMS_ITS | Encounter Summary ---
:1990 Author Organization [facility] Address [address] [place] [address] Care Team Providers Name Role Phone Unavailable Primary Care Provider Unavailable Encounter Details Date Type Department Care Team Description 05/12/2005 Hospital Encounter HX NO MAPPING uRperto Sheikh M.D. [address] [place], [place] [phone] (Wo rk) Social History [...] of this encounter Progress Notes Ruperto Sheikh M.D. - 05/12/2005 5:00 PM CDT [id number] S: John is a 14 year old [...] Contagious for 24 hours after starting treatment Source: [facility] RWMCHXTRANSXRTFSYS Document Id: [id number] Electronically signed by Conversion, [facility] Neurology Director [id number] at 05/03/2017 6:11 PM CDT documented in this encounter Plan of Treatment Not on filedocumented as of this encounter Visit Diagnoses Not on filedocumented in this encounter
--- OUTSIDE RECORDS SUMMARY | 2022-09-25 11:05 | XMS_ITS | Encounter Summary ---
:1990 Author Organization [facility] Address [address] [place] [address] Care Team Providers Name Role Phone Unavailable Primary Care Provider Unavailable Encounter Details Date Type Department Care Team Description 01/21/2006 Hospital Encounter [facility]X [facility] [...]
--- OUTSIDE RECORDS SUMMARY | 2022-09-25 11:05 | XMS_ITS | Encounter Summary ---
:1990 Author Organization [facility] Address [address] [place] [address] Care Team Providers Name Role Phone Unavailable Primary Care Provider Unavailable Encounter Details Date Type Department Care Team Description 02/23/2006 Hospital Encounter HX [facility] Shefali Lieberman [address] [place] [address] Social History Tobacco Use Types [...]
--- OUTSIDE RECORDS SUMMARY | 2022-09-25 11:05 | XMS_ITS | Encounter Summary ---
:1990 Author Organization [facility] Address [address] [place] [address] Care Team Providers Name Role Phone Unavailable Primary Care Provider Unavailable Encounter Details Date Type Department Care Team Description 05/18/2005 Hospital Encounter [facility]X [facility] [...]
--- OUTSIDE RECORDS SUMMARY | 2022-09-25 11:05 | XMS_ITS | Encounter Summary ---
:1990 Author Organization [facility] Address [address] [place] [address] Care Team Providers Name Role Phone Unavailable Primary Care Provider Unavailable Encounter Details Date Type Department Care Team Description 03/24/2005 Hospital Encounter [facility]X [facility] [...]
--- OUTSIDE RECORDS SUMMARY | 2022-09-25 11:05 | XMS_ITS | Encounter Summary ---
:1990 Author Organization [facility] Address [address] [place] [address] Care Team Providers Name Role Phone Unavailable Primary Care Provider Unavailable Encounter Details Date Type Department Care Team Description 02/04/2006 Hospital Encounter [facility]X [facility] [...]
--- OUTSIDE RECORDS SUMMARY | 2022-09-25 11:05 | XMS_ITS | Encounter Summary ---
:1990 Author Organization [facility] Address [address] [place] [address] Care Team Providers Name Role Phone Unavailable Primary Care Provider Unavailable Encounter Details Date Type Department Care Team Description 09/22/2005 Hospital Encounter HX [facility] Provider, Miguelangel valencia Social History [...] Notes Telephone Encounter - Shefali Lieberman - 09/22/2005 12:00 AM CDT [id number] John Gavin [id number] 09-22-05 TELEPHONE CALL: Mother said Royal was seen at [facility] and diagnosed as bipolar. She is wonderingabout his treatment. I recommended that he be seen by a child psychiatrist as I am retiring and would not be around to manage his medications. She will get that report for me. RNS:katya D: 09-22-05 Brennan Pat M.D. T: 09-23-05 Source: [facility] Document Id: [id number] documented in this encounter Plan of Treatment Not on filedocumented as of this encounter Visit Diagnoses Not on filedocumented in this encounter
--- OUTSIDE RECORDS SUMMARY | 2022-09-25 11:05 | XMS_ITS | Encounter Summary ---
:1990 Author Organization [facility] Address [address] [place] [address] Care Team Providers Name Role Phone Unavailable Primary Care Provider Unavailable Encounter Details Date Type Department Care Team Description 03/16/2006 Hospital Encounter [facility]X [facility] [...]
--- OUTSIDE RECORDS SUMMARY | 2022-09-25 11:05 | XMS_ITS | Encounter Summary ---
:1992 Author Organization [facility] Address [address] [place] [address] Care Team Providers Name Role Phone Unavailable Primary Care Provider Unavailable Encounter Details Date Type Department Care Team Description 12/31/2005 Hospital Encounter [facility]X [facility] [...] Miscellaneous - Conversion, Historical Provider Ser - 12/31/2005 12:00 AM CARD PLAYER [id number] LETTER John Gavin [address] [place] [address] December 31, 2005 Dear John: Thank you for requesting an appointment for services at the [facility] Behavioral Health Department. Initial 45 minute appointments have been scheduled in our Psychology Department with: Freda Norman, Caron.MargaritaSJacielW. , January 07, 2006 at 2:00 PM , January 21, 2006 at 3:00 PM , February 04, 2006 at 3:00 PM located on the 3rd floor: [facility] ([facility]) at [address] [place] [address]. If the above scheduled appointment is not convenient, please contact our office as soon as possible at or to reschedule. You need to contact your insurance company prior to your appointment for a possible prior authorization to avoid delays in payment or you may be responsible for payment. There will be a number on your insurance card for you to call. Please bring the authorization number that the insurance company gives you, to your first appointment.It is also important that you bring along all of your insurance information at the time of your visit so that billing can be handled promptly. When you make an appointment with our department, time is set aside for you. If you fail to arrive for this appointment, it is time that could have been used by other patients requesting these services. Therefore, if you are unable to keep this appointment, please contact our office prior to your appointment. If you do not contact us at least 24 hours prior to your appointment, you will be billed a Late Cancellation/ No Show Fee. Your insurance company will not reimburse for this fee; therefore, thecharge would be billed directly to you. The forms enclosed with this letter should be completed and returned to us prior to your scheduled appointment. This would include all forms on the right side of the folder. We trust that your experience with us will be a pleasant and worthwhile one. Sincerely, [facility] Behavioral Health Source: [facility] RWHXTRANSXRTFSYS Document Id: [id number] documented in this encounter Plan of Treatment Not on filedocumented as of this encounter Visit Diagnoses Not on filedocumented in this encounter
--- OUTSIDE RECORDS SUMMARY | 2022-09-25 11:05 | XMS_ITS | Encounter Summary ---
:1990 Author Organization [facility] Address [address] [place] [address] Care Team Providers Name Role Phone Unavailable Primary Care Provider Unavailable Encounter Details Date Type Department Care Team Description 01/20/2005 Hospital Encounter HX NO MAPPING Seda Mosley [...]
--- OUTSIDE RECORDS SUMMARY | 2022-09-25 11:05 | XMS_ITS | Encounter Summary ---
:1990 Author Organization [facility] Address [address] [place] [address] Care Team Providers Name Role Phone Unavailable Primary Care Provider Unavailable Encounter Details Date Type Department Care Team Description 05/12/2005 Hospital Encounter HX [facility] Carly Hart R.N. Social History Tobacco Use Types Packs/Day Years [...] Miscellaneous Notes Telephone Encounter - Carly Hart R.N. - 05/12/2005 12:00 AM CDT [id number] order for injection that she could bring him into urgent care tonight to get. If you will write RX we would take it over to urgent care nurses. Thanks. Source: [facility] Document Id: [id number] Electronically signed by Conversion, [facility] Tunnel Heading Inspector [id number] at 05/03/2017 6:11 PM CDT Telephone Encounter - Monster Bazan M.D. - 05/12/2005 12:00 AM CDT [id number] get injection in urgent care, Rx written 08/01 CR bicillin Source: [facility] Document Id: [id number] Electronically signed by Conversion, [facility] Tunnel Heading Inspector [id number] at 05/03/2017 6:11 PM CDT documented in this encounter Plan of Treatment Not on filedocumented as of this encounter Visit Diagnoses Not on filedocumented in this encounter
--- OUTSIDE RECORDS SUMMARY | 2022-09-25 11:05 | XMS_ITS | Encounter Summary ---
:1990 Author Organization [facility] Address [address] [place] [address] Care Team Providers Name Role Phone Unavailable Primary Care Provider Unavailable Encounter Details Date Type Department Care Team Description 01/28/2006 Hospital Encounter [facility] Maci Osuna M.D. Social History [...] encounter Progress Notes Mariely Osuna M.D. - 01/28/2006 9:30 AM CST [id number] CLINIC ENCOUNTER Royal Gavin comes in with [...] offered a consult to Tracey Galeas, our junior art director, to review with Royal and his mother [...] to nutrition entered. Mariely Osuna M.D. MALLY/mary Source: [facility] Document Id: [id number] Electronically signed by Conversion, [facility] Promotion Manager [id number] at 05/03/2017 3:14 PM CDT Mariely Osuna M.D. - 01/28/2006 9:30 AM CST [id number] This office note has been dictated. Source: [facility] Document Id: [id number] Electronically signed by Conversion, [facility] Promotion Manager [id number] at 05/03/2017 3:14 PM CDT documented in this encounter Plan of Treatment Not on filedocumented as of this encounter Visit Diagnoses Not on filedocumented in this encounter
--- OUTSIDE RECORDS SUMMARY | 2022-09-25 11:05 | XMS_ITS | Encounter Summary ---
:1990 Author Organization [facility] Address [address] [place] [address] Care Team Providers Name Role Phone Unavailable Primary Care Provider Unavailable Encounter Details Date Type Department Care Team Description 01/28/2006 Hospital Encounter [facility]X [facility] Provider, Miguelangel valencia Social [...] Miscellaneous - Conversion, Historical Provider Ser - 01/28/2006 12:00 AM CORPORATE REAL ESTATE SPECIALIST [id number] LETTER To the parent(s) of John Gavin [address] [place] [address] January 28, 2006 Dear Parent(s): Our records indicate that you recently cancelled your appointment with Davina NormanSSalty, D.C.S.W.. Thank you for notifying our office. It is the policy of this office to charge a cancellation fee for appointments cancelled without 24 hours notification. Your next scheduled appointment is: January at 3:00 PM If you are unable to keep this appointment, please call the [facility] Health Department as soon as possible at or toll-free to reschedule or cancel. We look forward to hearing from you. Thank you, [facility] Behavioral Health Source: [facility] Document Id: [id number] documented in this encounter Plan of Treatment Not on filedocumented as of this encounter Visit Diagnoses Not on filedocumented in this encounter
--- OUTSIDE RECORDS SUMMARY | 2022-09-25 11:05 | XMS_ITS | Encounter Summary ---
:1990 Author Organization [facility] Address [address] [place] [address] Care Team Providers Name Role Phone Unavailable Primary Care Provider Unavailable Encounter Details Date Type Department Care Team Description 02/24/2006 Hospital Encounter HX [facility] [...]
--- OUTSIDE RECORDS SUMMARY | 2022-09-25 11:05 | XMS_ITS | Encounter Summary ---
:1992 Author Organization [facility] Address [address] [place] [address] Care Team Providers Name Role Phone Unavailable Primary Care Provider Unavailable Encounter Details Date Type Department Care Team Description 02/11/2006 Hospital Encounter [facility]X [facility] [...]
--- OUTSIDE RECORDS SUMMARY | 2022-09-25 11:05 | XMS_ITS | Encounter Summary ---
:1990 Author Organization [facility] Address [address] [place] [address] Care Team Providers Name Role Phone Unavailable Primary Care Provider Unavailable Encounter Details Date Type Department Care Team Description 10/27/2005 Hospital Encounter HX [facility] PEDI[facility] Maci Osuna M.D. Social History [...] Miscellaneous - Conversion, Historical Provider Ser - 10/27/2005 12:00 AM AUTOMATION TEST DEVELOPER [id number] October 27, 2005 Dear parent(s) of John Gavin, According to our records, your child has been receiving care from Dr. Pat at [facility]. The pediatric department understands that Dr. Pat will no longer be seeing patients after November 28, 2005 and would like to help in the transition of your child's care. Mariely Osuna M.D. has reviewed your child's records and is enclosing a list of referrals for yourchild who would be able to provide the specialty care your child needs. It is very important that you establish care with another provider as soon as possible because your child will not be receiving any further medication prescriptions from Dr. Pat after October 2005. Sincerely, Pediatric Department Marito Champagne M.D. Sameera Osuna M.D. Otto Tinoco M.D. Monster Bazan M.D. Cora Holliday PA-C [facility] Source: [facility] Document Id: [id number] documented in this encounter Plan of Treatment Not on filedocumented as of this encounter Visit Diagnoses Not on filedocumented in this encounter
--- OUTSIDE RECORDS SUMMARY | 2022-09-25 11:05 | XMS_ITS | Encounter Summary ---
:1990 Author Organization [facility] Address [address] [place] [address] Care Team Providers Name Role Phone Unavailable Primary Care Provider Unavailable Encounter Details Date Type Department Care Team Description 09/24/2005 Hospital Encounter HX [facility] [...]
--- OUTSIDE RECORDS SUMMARY | 2022-09-25 11:06 | XMS_ITS | Encounter Summary ---
:1990 Author Organization [facility] Address [address] [place] [address] Care Team Providers Name Role Phone Unavailable Primary Care Provider Unavailable Encounter Details Date Type Department Care Team Description 08/11/2004 Hospital Encounter HX NO MAPPING Lobo Callahan M.D. [address] [place] [address] (Wo rk) Social History Tobacco Use Types [...]
--- OUTSIDE RECORDS SUMMARY | 2022-09-25 11:06 | XMS_ITS | Encounter Summary ---
:1990 Author Organization [facility] Address [address] [place] [address] Care Team Providers Name Role Phone Unavailable Primary Care Provider Unavailable Encounter Details Date Type Department Care Team Description 03/24/2004 Hospital Encounter HX [facility] Shalom Robles M.D. [address] [place] [address] (Wo rk) Social History Tobacco Use Types [...] Progress Notes Conversion, Historical Provider Ser - 03/24/2004 8:00 AM CDT [id number] Addended by: JOE CORTES on: 03/31/2004,8:17 AM Comment: Auto Body Repairman/sent to Cora guillory or review per Dr. Mina accepted: Order Summary, Progress NotesAddended by: JOE CORTES on : 03/31/2004,8:15 AM Comment: Auto Body Repairman.Modules accepted: Progress NotesPain Questionnaire : Is your visit today because of Pain? Alysonsaul Gavin is a 13 year old male who presents for complete eye exam. History of Present Illness: Pedroter states that patient has been having headach es for about the past 2 years now that have been getting worse. no past history of eye problems are n oted. This is his first complete eye exam. Mother notes that eyes have always been straight and visio n has been good. Pt is having a CT scan after this appointmentBilshanique Engel, COMTVisual Acuity SC D istanceOD: 20Visual Acuity SC DistanceOS: 20Visual Acuity SC NearOD: 20 at 12 inchesVisual Acuity SC NearOS: 20 at 12 inchesIOP: unableComments: ortho at dist and nearversions WNLNPC to nose40 seconds of stereonegative for APD?-only quick look with pt closing eyesDilation Medicati on: Tropicamide 1.0% Phenylephrine 2.5% Cyclogel 1.0% CR +0.50 20/20 +0.50 20/20Patient Activ e Problem List: HEADACHE[784.0] ATTN DEFICIT W HYPERACT[314.01] TIC DISORDER NOS[307.20] SLE EP DISTURBANCE NOS[780.50] UNSPEC CONSTIPATION[564.00]PAST MEDICAL HISTORY: There is no previous medical history on file.PAST SURGICAL HISTORY: Review of patient's past surgical history indicates : CYSTOURETHROSCOPY 06/22/03 MEDICATIONS: Current prescriptions:T RAZODONE HCL 50 MG OR TABS 1 bedtimeADDERALL XR (25MG) OR CP24 25 mg po dailyMIRALAX OR POWD 1 CAPF UL IN 8 OZ WATER ONCE DAILY UNTIL DESIRED RESULT AND THEN NEEDEDBENEFIBER OR PACK 1 TO 2 TEASPOON S IN 8 OZ OF WATER OR JUICE ONCE DAILYMIDRIN 325-65-100 MG OR CAPS 2 Capsules at onset of headache. May take additional capsule after 1 hour if no relief. Not to exceed 5 capsules in 24 hours.ADVIL 2 00 MG OR CAPS prn, per momALLERGIES: No Known Allergies Tobacco Use: Never Comment: no 2nd hand smoke in the house Alcohol Use: Not Asked Pt does not drive motor vehicle.Revie w of patient's family history indicates: Neurological Mother Comment: migraine headaches Neurological Paternal Grandmother Comment: migr freddy headachesREVIEW OF SYSTEMS:General: negativeSkin: negativeEyes: negativeEars/Nose/Mouth/ Throat: negativeRespiratory: negativeCardiovascular: negativeGastrointestinal: negativeGenitourin kaylan: negativeMusculoskeletal: negativeNeurologic: negativePsychiatric: negativeHematologic/Lympha tic/Immunologic: negativeEndocrine: negativeHISTORY: As noted. The patient is seen in consultat ion for a history of headaches following a closed-head injury and concussion within the last month. He has a family history of migraines.EXAM: CONFRONTATION FLOYD: Full.EXTERNAL: Without lesions .MOTILITY: Full.PUPILS: No afferent defect.SLIT LAMP EXAM: Conjunctivae/sclerae quiet. Corneas clear. Lenses clear. FUNDUS: Normal maculae, discs and periphery.ASSESSMENT: Headaches of non- ocular etiology.PLAN: Reassurance.Recheck on a prn basis.Benny Sanchez M.D./bbD: 03/24/20 04T: 03/31/2004 c: Cora Holliday PA-C Source: [facility] RWHXTRANSXSYS Document Id: [id number] documented in this encounter Plan of Treatment Not on filedocumented as of this encounter Visit Diagnoses Not on filedocumented in this encounter
--- OUTSIDE RECORDS SUMMARY | 2022-09-25 11:06 | XMS_ITS | Encounter Summary ---
:1990 Author Organization [facility] Address [address] [place] [address] Care Team Providers Name Role Phone Unavailable Primary Care Provider Unavailable Encounter Details Date Type Department Care Team Description 03/12/2004 Hospital Encounter HX [facility] PED[facility] Maci Osuna M.D. Social History [...] Progress Notes Conversion, Historical Provider Ser - 03/12/2004 9:50 AM CDT [id number] Addended by: MAX GUERRA on: 03/17/2004,6:06 AM Comment: TranscriptionModules accepted: Shantanu galicia NotesSUBJECTIVE:Royal comes in with his mother with several [...] home from school. Mom uses Tylenol or Advil. He has severe head aches that can be associated with nausea and sometimes vomiting about two times per month. With sever e headaches mom will use some Tylenol with codeine most recently prescribed by Dr. Banerjee. She use s that only about once every two weeks. He does complain of feeling dizzy. He has a longstanding prob ramirez with appetite and constipation. He does not lay down easily and in fact he has had trouble with h is sleep. He usually sits quietly and gets angry. In the past mom thought that his anxiety playe d a role. She does not think that that is significant factor currently. There is a family history of migraine headaches in the mother, maternal, grandmother and other distant relatives. Royal denies fe wes, chills, sweats, or respiratory symptoms. He does have a tic cough. He does not have any known allergies. He has noted no change in his vision or hearing. He has no aura reported before a headache . He has had no change in balance or coordination.PAST MEDICAL HISTORY:Significant for his Attent ion Deficit disorder and [...] a recent diagnosis of a mild conc ussion.PHYSICAL EXAM:General: Royal is quiet, relatively noncommunicative. Eyes: Conjunctivae are not injected. Pupils are equally round and reactive to light. Optic disk appear sharp. Ears: Both TM s are translucent.Nose: Congested with erythema and discharge. Oropharynx: No tonsillar erythema or exudate. Moist mucous membranes. Neck: Supple without significant adenopathy.Chest: Good air entry , clear to auscultation.CV: RRR, no murmur.Abdomen: Flat, active bowel sounds, no HSM appreciated. He does haves voluntary guarding. : Not done. Neural Exam: He has normal lezqox-rx-rskx, rapid al ternating movements, heel-leong. Normal gait and normal tandem gait. Normal heel- walking and toe-walk ing. ASSESSMENT:1. Chronic daily headache with family history of migraines. 2. Attention Deficit disorder and behavioral issues followed by Dr. Pat.3. Chronic constipation.PLAN:We discus sed evaluation and treatment options including [...] possible trigger methods. I did recommend that e consider short term visits with Dr. Rey or Dr. Phillips for consideration of relaxation and biofeedba ck training with regards to his anxiety and management of daily headaches. We could consider a cont roller medicine such as Amitriptyline. Would want to discuss whether we could substitute that for his Trazodone or we could consider a trial of Atenolol. Dr. Pat has no objection to using that i n the setting of the Adderall. Mom will schedule the follow up appointments as we discussed. A pres cription for Midrin is provided. We also discussed constipation management. He will use MiraLax as prescribed until stools are soft and daily and then Benefiber on a daily basis with MiraLax on an as needed basis. Mariely Osuna M.D./omarD: 03/12/2004T: 03/17/2004 Source: [facility] RWHXTRANSXSYS Document Id: [id number] documented in this encounter Plan of Treatment Not on filedocumented as of this encounter Visit Diagnoses Not on filedocumented in this encounter
--- OUTSIDE RECORDS SUMMARY | 2022-09-25 11:06 | XMS_ITS | Encounter Summary ---
:1990 Author Organization [facility] Address [address] [place] [address] Care Team Providers Name Role Phone Unavailable Primary Care Provider Unavailable Encounter Details Date Type Department Care Team Description 04/24/2004 Hospital Encounter HX [facility] [...]
--- OUTSIDE RECORDS SUMMARY | 2022-09-25 11:06 | XMS_ITS | Encounter Summary ---
:1990 Author Organization [facility] Address [address] [place] [address] Care Team Providers Name Role Phone Unavailable Primary Care Provider Unavailable Encounter Details Date Type Department Care Team Description 06/18/2004 Hospital Encounter HX NO MAPPING Wisam Browning M.D . Social History Tobacco Use Types [...] Progress Notes Conversion, Historical Provider Ser - 06/18/2004 6:45 PM CDT [id number] Mother says he was released at 2:00 p.m. from the hospital diagnosed with pneumonia. She said he is on an antibiotic but did not bring it with and he is not quite sure what he is on. The last 2 1/2 ho urs he has been complaining of lower back pain and said he had a spinal tap.Vital signs discussed. She said his weight is about 63 pounds. Thoracic and lumbar back shows no erythema, swelling or asy mmetry. He points to discomfort in the L3-5 area. Lungs are clear. Percussion normal.Heart 89 re gular.Maynard conjunctiva and white sclera. No rash or vesicles.Reviewed information in [facility] that wa s available from this hospitalization [...] per previous post hospitalization plan. Wisam Browning M.D./graceD: 06/18/2004T: 06/19/2004 Source: [facility] RWHXTRANSXSYS Document Id: [id number] documented in this encounter Plan of Treatment Not on filedocumented as of this encounter Visit Diagnoses Not on filedocumented in this encounter
--- OUTSIDE RECORDS SUMMARY | 2022-09-25 11:06 | XMS_ITS | Encounter Summary ---
:1990 Author Organization [facility] Address [address] [place] [address] Care Team Providers Name Role Phone Unavailable Primary Care Provider Unavailable Encounter Details Date Type Department Care Team Description 11/04/2004 Hospital Encounter HX NO MAPPING Sugar Bazan M.D. [address] [place], [place] [phone] (Wo rk) Social History [...] Progress Notes Conversion, Historical Provider Ser - 11/04/2004 6:15 PM CST [id number] SUBJECTIVE:The patient has had a cough for the past 2 weeks and was put on Zithromax. Today he devel oped hives on his back and chest. He is still coughing, is feeling more kind of itchy and a little b it dizzy. No fever.OBJECTIVE:The patient is playing in the room. He is somewhat hyperactive, bu t in no acute distress.HEENT: Both tympanic membranes are clear. Nares show moderate congestion.Or opharynx is pink and moist.Neck is supple.Lungs are completely clear to auscultation.Heart: Regula r rate and rhythm, normal S1, S2 without murmur.Skin exam shows he has some scattered red blotches a cross his face, back and abdomen. Chest x-ray is clear.ASSESSMENT:1. Hives likely secondary to Zithromax.2. Bronchitis.PLAN:Will stop Zithromax. Start Augmentin 500 by mouth twice daily for 10 days. Atarax 10 milligrams 1-2 every 6 hours as needed for itching. Call if symptoms persist o r worsen. Monster Bazan M.D./mpD: 11/04/2004T: 11/05/2004 Source: [facility] RWHXTRANSXSYS Document Id: [id number] documented in this encounter Plan of Treatment Not on filedocumented as of this encounter Visit Diagnoses Not on filedocumented in this encounter
--- OUTSIDE RECORDS SUMMARY | 2022-09-25 11:06 | XMS_ITS | Encounter Summary ---
:1990 Author Organization [facility] Address [address] [place] [address] Care Team Providers Name Role Phone Unavailable Primary Care Provider Unavailable Encounter Details Date Type Department Care Team Description 04/03/2004 Hospital Encounter HX [facility] Asp, Ruperto García Ed.D., L.P. Social History Tobacco Use Types Packs/Day Years [...] of this encounter Miscellaneous Notes Miscellaneous - Shefali Lieberman - 04/03/2004 4:45 PM CDT [id number] LETTER April 03, 2004 Sameera Osuna M.D. Pediatric Department [facility] [address] [place] [address] [place] [address] RE: John Gavin EMR: [id number] Dear Sameera: Thank you very much for your referral of John Gavin to my service. I saw him for an intake session on April 03, 2004. As you know, he is an 13-year-old boy who has been having headaches that are probably stress related. Mother reported that there has been a number of physical examinations that haveruled out any physical etiology. She did indicate, however, that he apparently has suffered a numberof head trauma with concussion. Royal was a rather sullen, guarded boy who did not give much spontaneous information. He sat with his arms folded and was quiet. I attempted to engage him by demonstrating biofeedback with his mother. I indicated that he could learn how to relax using the biofeedback information. The instrument (EMG machine) and rational were presented to both Royal and his mother. Hopefully he will return with some motivation to learn how to lessen his tension level. I know that other appointments have been set up and I look forward to working with Royal. Thank you very much for your referral. Sincerely, Ruperto Hare Asp, Ed.D., L.P. [facility] NOEL:katya Source: [facility] RWMCHXTRANSXRTFSYS Document Id: [id number] documented in this encounter Plan of Treatment Not on filedocumented as of this encounter Visit Diagnoses Not on filedocumented in this encounter
--- OUTSIDE RECORDS SUMMARY | 2022-09-25 11:06 | XMS_ITS | Encounter Summary ---
:1990 Author Organization [facility] Address [address] [place] [address] Care Team Providers Name Role Phone Unavailable Primary Care Provider Unavailable Encounter Details Date Type Department Care Team Description 06/23/2004 Hospital Encounter HX NO MAPPING Provider, Historical [...]
--- OUTSIDE RECORDS SUMMARY | 2022-09-25 11:06 | XMS_ITS | Encounter Summary ---
:1990 Author Organization [facility] Address [address] [place] [address] Care Team Providers Name Role Phone Unavailable Primary Care Provider Unavailable Encounter Details Date Type Department Care Team Description 06/17/2004 Hospital Encounter HX NO MAPPING Provider, Historical [...] Miscellaneous - Conversion, Historical Provider Ser - 06/17/2004 12:00 AM CDT [id number] Addended by: ADE LAZAR on: 07/09/2004,10:44 AMModules accepted: Order Summary, Progress Notes- Abstracted by ISIDRO [employer] on 06/18/2004 [facility] [place] [address]FOCOLTON LAGUNA : [id number] Record Number: [id number] Number: [id number] Champagne M.D.06-17-04 HISTORY AND PHYSICALCHIEF COMPLAINT: Vomiting and fever.HISTORY OF PRESENT ILLNESS: The patie nt is an 13-year-old boy who was well until 2 days ago. He awoke early yesterday morning with leg cr amps, chills and then shortly thereafter developed some abdominal pain and vomiting. He presented to the emergency room yesterday morning. He was felt to have gastroenteritis. He was given IV fluids a nd sent home. He seemed to do well for a couple of hours but then the vomiting resumed. He had rou ghly 20 episodes of vomiting over the course of the afternoon and yesterday evening. Overnight the v omiting subsided but he still had headaches, abdominal pain, back pain, chest pain, and fever. He al so had some cough overnight. He presents to the emergency room today for evaluation.PAST MEDICAL H ISTORY: Significant for recurrent sinusitis and ear infections as a toddler. He also had problems w ith a very weak urinary stream. He is currently being treated for ADHD.PAST SURGICAL HISTORY: Sig nificant for tonsillectomy and adenoidectomy and PE tubes, all done as a toddler. He had inguinal he rnia repair at age 3. He has had cystoscopy and urethral dilatations as recently as 1 year ago.FAM ANASTACIO HISTORY: Mom and dad are alive and well. He has 2 brothers, one of whom has asthma. He has a h retirement sister who is alive and well.SOCIAL HISTORY: Lives with his family in [place].IMMUNIZATIONS : Up to date.MEDICATIONS: Trazodone 50 mg p.o. h.s., Concerta 36 mg p.o. daily.He has no known drug allergies.No growth or developmental concerns.REVIEW OF SYSTEMS:Constitutional: Positive f or fevers and chills.ENT: Negative.Respiratory: Positive for chest pain and cough. Cardiac: Neg ative.GI: As above.: As above.Dermatologic: Positive for several mosquito bites the last coup le of weeks.Endocrine: Negative.Psychological: Positive for behavior problems and ADHD.PHYSICAL EXAM: Temperature is 101. Pulse 119. Respirations 12. Blood pressure 112/62. He is 61 pounds wh ich is 27.7 kilograms. General: Well-developed, well-nourished, alert, slender, no acute distress. Pupils are equal, round and reactive to light. Extraocular muscles are intact. Conjunctiva are not injected. Tympanic membranes are clear bilaterally. There is no rhinorrhea. Mucous membranes are m oist. Oropharynx is not inflamed.Neck is supple with shotty bilateral anterior cervical lymphadenop athy. There are quite obvious vesicular breath sounds right upper lobe. The remainder of auscultatio n is clear.He has normal S1-S2 with regular rate and rhythm, no murmurs.He has normal bowel sounds. Abdomen is soft, nontender, nondistended, without hepatosplenomegaly or masses.Skin exam signific ant for several mosquito bites none of which appear infected.LABS: White blood cell count is 29.7 with 27 bands, 65 neutrophils, 5 lymphs, 3 monos. Hemoglobin 12.5. Platelet 273,000. Comprehensive metabolic panel is unremarkable. LP was performed in the emergency room. CSF has 1 RBC, 0 WBC. Gl ucose 75. Protein 25. Chest x-ray reveals white out in the right upper lobe.IMPRESSION:1. Rig ht upper lobe pneumonia.2. Dehydration.PLAN: Received first dose of Ceftriaxone in the emergency room. Will admit for IV fluids and observation. May have a clear liquid diet and advance as tolera cinthia. May have Tylenol and Zofran as needed. Will repeat the CBC and chest x-ray in the morning.Maureen Champagne M.D./Yue: 06-17-04T: 06-17-04 Source: [facility] RWHXTRANSXSYS Document Id: [id number] documented in this encounter Plan of Treatment Not on filedocumented as of this encounter Visit Diagnoses Not on filedocumented in this encounter
--- OUTSIDE RECORDS SUMMARY | 2022-09-25 11:06 | XMS_ITS | Encounter Summary ---
:1990 Author Organization [facility] Address [address] [place] [address] Care Team Providers Name Role Phone Unavailable Primary Care Provider Unavailable Encounter Details Date Type Department Care Team Description 03/10/2004 Hospital Encounter HX NO MAPPING Stew Banerjee M.D. [address] [place], [place] [address] (Wo rk) Social History [...] Progress Notes Conversion, Historical Provider Ser - 03/10/2004 5:00 PM CDT [id number] The patient presents today with a bump on his head which occurred last night when he was jumping on t he couch. He hit his head on the ceiling. He had no loss of consciousness. No memory loss. Had a little nausea nad decreased appetite but otherwise behaving fairly normally. Sleeping fairly well. Eating fairly well. Mom thinks the bump is a little larger. Denies any drainage. No neck pain. De nies any other neurologic symptoms. Does have a history of chronic headache.EXAMINATION: The sonia ent is alert and oriented, pleasant and cooperative with exam. No acute distress.Vitals: See nursi ng note.HEENT: Negative.Neck: Supple. No midline tenderness of his neck. Normal range of motion. Does have a small bump on the top of his head with a small superficial abrasion. No stepoff. No s evere tenderness. No discharge, bleeding or signs of infection.Neurologic: Nonfocal.ASSESSMENT: Contusion/closed head injury. Possible very mild concussion.PLAN: Recommend rest, ice, Tylenol a s needed for pain. Also refilled Tylenol with codeine as needed for more severe headache. He should follow up with his regular doctor for recheck. Follow up emergently if any worsening or any neurolo gic symptom. Monster ogden M.D./graceD: 03/10/2004T: 03/11/2004 Source: [facility] RWHXTRANSXSYS Document Id: [id number] documented in this encounter Plan of Treatment Not on filedocumented as of this encounter Visit Diagnoses Not on filedocumented in this encounter
--- OUTSIDE RECORDS SUMMARY | 2022-09-25 11:06 | XMS_ITS | Encounter Summary ---
:1990 Author Organization [facility] Address [address] [place] [address] Care Team Providers Name Role Phone Unavailable Primary Care Provider Unavailable Encounter Details Date Type Department Care Team Description 05/08/2004 Hospital Encounter HX [facility] Ruperto Phillips Ed.D., L.P. Social History Tobacco Use Types [...] Miscellaneous - Conversion, Historical Provider Ser - 05/08/2004 12:00 AM CDT [id number] LETTER to the parents of John Gavin [address] [place] [phone] May 08, 2004 Dear parents: Our records indicate that you missed your appointment with Ruperto Hare Asp, Ed.D., L.P. on: May 08, 2004 [facility] has a policy to bill for late cancelled appointments. Your insurance company will not pay for a No Show charge. Appointments that are not kept need to be cancelled 24 hours prior to the appointment to avoid being billed. We have a waiting list for most appointments, and it is important to give others a chance to fill open positions on the schedule. Your next scheduled appointment is: April at 3:45 PM Please contact us as soon as soon as possible at [phone] or if you do not intend to keep this appointment. Thank you, [facility] Source[facility] Document Id: [id number] documented in this encounter Plan of Treatment Not on filedocumented as of this encounter Visit Diagnoses Not on filedocumented in this encounter
--- OUTSIDE RECORDS SUMMARY | 2022-09-25 11:06 | XMS_ITS | Encounter Summary ---
:1990 Author Organization [facility] Address [address] [place] [address] Care Team Providers Name Role Phone Unavailable Primary Care Provider Unavailable Encounter Details Date Type Department Care Team Description 09/01/2004 Hospital Encounter HX [facility] [...]
--- OUTSIDE RECORDS SUMMARY | 2022-09-25 11:06 | XMS_ITS | Encounter Summary ---
:1990 Author Organization [facility] Address [address] [place] [address] Care Team Providers Name Role Phone Unavailable Primary Care Provider Unavailable Encounter Details Date Type Department Care Team Description 11/18/2004 Hospital Encounter HX [facility] [...]
--- OUTSIDE RECORDS SUMMARY | 2022-09-25 11:06 | XMS_ITS | Encounter Summary ---
:1990 Author Organization [facility] Address [address] [place] [address] Care Team Providers Name Role Phone Unavailable Primary Care Provider Unavailable Encounter Details Date Type Department Care Team Description 06/17/2004 - Hospital Encounter HX NO MAPPING Juan Champagne M.D. 06/18/2004 [address] [place], [place] [address] (Wo rk) Social History [...] as of this encounter Progress Notes Addison Vigil - 04/13/2015 9:06 AM CDT likely MEJIA bagley Electronically Signed By: ADDISON VIGIL PA-C On: 04/13/2015 09:06 AM Source: [facility] POWERCHART Document Id: [id number] documented in this encounter Plan of Treatment Not on filedocumented as of this encounter Visit Diagnoses Not on filedocumented in this encounter
--- OUTSIDE RECORDS SUMMARY | 2022-09-25 11:06 | XMS_ITS | Encounter Summary ---
:1990 Author Organization [facility] Address [address] [place] [address] Care Team Providers Name Role Phone Unavailable Primary Care Provider Unavailable Encounter Details Date Type Department Care Team Description 03/25/2004 Hospital Encounter HX [facility] [...]
--- OUTSIDE RECORDS SUMMARY | 2022-09-25 11:06 | XMS_ITS | Encounter Summary ---
:1990 Author Organization [facility] Address [address] [place] [address] Care Team Providers Name Role Phone Unavailable Primary Care Provider Unavailable Encounter Details Date Type Department Care Team Description 04/25/2004 Hospital Encounter HX [facility] [...]
--- OUTSIDE RECORDS SUMMARY | 2022-09-25 11:06 | XMS_ITS | Encounter Summary ---
:1990 Author Organization [facility] Address [address] [place] [address] Care Team Providers Name Role Phone Unavailable Primary Care Provider Unavailable Encounter Details Date Type Department Care Team Description 06/16/2004 Hospital Encounter HX NO MAPPING Lobo Callahan M.D. [address] [place] [address] (Wo rk) Social History Tobacco Use [...]
--- OUTSIDE RECORDS SUMMARY | 2022-09-25 11:06 | XMS_ITS | Encounter Summary ---
:1990 Author Organization [facility] Address [address] [place] [address] Care Team Providers Name Role Phone Unavailable Primary Care Provider Unavailable Encounter Details Date Type Department Care Team Description 08/25/2004 Hospital Encounter HX [facility] [...]
--- OUTSIDE RECORDS SUMMARY | 2022-09-25 11:06 | XMS_ITS | Encounter Summary ---
:1990 Author Organization [facility] Address [address] [place] [address] Care Team Providers Name Role Phone Unavailable Primary Care Provider Unavailable Encounter Details Date Type Department Care Team Description 05/22/2004 Hospital Encounter HX [facility] [...]
--- OUTSIDE RECORDS SUMMARY | 2022-09-25 11:06 | XMS_ITS | Encounter Summary ---
:1990 Author Organization [facility] Address [address] [place] [address] Care Team Providers Name Role Phone Unavailable Primary Care Provider Unavailable Encounter Details Date Type Department Care Team Description 06/26/2004 Hospital [facility] Maci Osuna M.D. Social [...] Progress Notes Conversion, Historical Provider Ser - 06/26/2004 3:20 PM CDT [id number] Addended by: BRENDEN MALDONADO on: 07/04/2004,1:48 PM Comment: [employer].Modules accepted: Progress NotesSUBJECTIVE: Royal is an 13-year-old who is in for a hospital follow up for his pneum onia. He just completed his last day of Ceftin antibiotic therapy for his right upper lobe pneumonia . He did have spinal tap studies for arborvirus and mosquito-borne illnesses were done. Those were all normal. He was back in following his lumbar puncture with severe headache and backache. That la sted about three total days and he has not had any headache at all [...] right upper lobe. ASSESSMENT: Pneumonia, resolve d. PLAN:No further antibiotic treatment necessary. Call or return if he has recurrence of symptom s off antibiotics or other concerns. Mariely Osuna M.D./Inge: 06/26/2004T: Source: [facility] RWHXTRANSXSYS Document Id: [id number] documented in this encounter Plan of Treatment Not on filedocumented as of this encounter Visit Diagnoses Not on filedocumented in this encounter
--- OUTSIDE RECORDS SUMMARY | 2022-09-25 11:06 | XMS_ITS | Encounter Summary ---
:1990 Author Organization [facility] Address [address] [place] [address] Care Team Providers Name Role Phone Unavailable Primary Care Provider Unavailable Encounter Details Date Type Department Care Team Description 03/24/2004 Hospital Encounter HX NO MAPPING Mariely Osuna [...]
--- OUTSIDE RECORDS SUMMARY | 2022-09-25 11:06 | XMS_ITS | Encounter Summary ---
:1990 Author Organization [facility] Address [address] [place] [address] Care Team Providers Name Role Phone Unavailable Primary Care Provider Unavailable Encounter Details Date Type Department Care Team Description 07/09/2004 Hospital Encounter HX [facility] [...]
--- OUTSIDE RECORDS SUMMARY | 2022-09-25 11:06 | XMS_ITS | Encounter Summary ---
:1990 Author Organization [facility] Address [address] [place] [address] Care Team Providers Name Role Phone Unavailable Primary Care Provider Unavailable Encounter Details Date Type Department Care Team Description 11/01/2004 Hospital Encounter HX NO MAPPING Addison Sidhu, P [place].Hang. Social History Tobacco Use Types Packs/Day Years [...] Progress Notes Conversion, Historical Provider Ser - 11/01/2004 9:00 AM CST [id number] SUBJECTIVE: He has had a cough getting worse over the past 1 1/2 to 2 weeks with some low fevers at home. The child had a similar presentation in May when he was admitted to the hospital for pneumoni a. He does have a history of mild bronchospasm but has not been using his inhaler.OBJECTIVE:The c hild is in no distress, afebrile. Occasional coughing during exam but mild.Ears - clear.Throat - c lear. No drainage.Sinuses - nontender.Lungs - clear.Heart tones - normal.ASSESSMENT:1. Upper respiratory infection.2. Bronchospasm likely.PLAN:1. Advised using inhaler, Proventil MDI four times daily prn.2. If that doesn't resolve the cough, then Z-Olivier for 5 days.3. Patient won't swal low any liquid medicine, according to the mother, whatsoever. Will take his antibiotic with food and he will recheck with the clinic fail to improve.Addison Sidhu PA-C/darnellaD: 11/01/2004T: Source: [facility] RWHXTRANSXSYS Document Id: [id number] documented in this encounter Plan of Treatment Not on filedocumented as of this encounter Visit Diagnoses Not on filedocumented in this encounter
--- OUTSIDE RECORDS SUMMARY | 2022-09-25 11:07 | XMS_ITS | Encounter Summary ---
:1990 Author Organization [facility] Address [address] [place] [address] Care Team Providers Name Role Phone Unavailable Primary Care Provider Unavailable Encounter Details Date Type Department Care Team Description 02/10/2004 Hospital Encounter HX NO MAPPING Viet Muse M.D. [address] [place], [place] [address] (Wo rk) Social History [...] Progress Notes Conversion, Historical Provider Ser - 02/10/2004 10:30 AM CST [id number] SUBJECTIVE:The patient comes in at this time with mother complaining of persistent and recurring hea daches as well as cough, cold, and purulent rhinorrhea with sore throat at this time. Mother stats he has been followed by Dr. Pat for ADHD and because of persistent headaches with associated na usea, Dr. Pat recommended follow up with the patient's regular PCP for evaluation for possibl e migraine headaches. Mother at this time would like acute care for a possible sinus infection.PHYS ICAL EXAM: Vital signs as listed in [...] Heart and lungs are clear at this time.ASSESSMENT:Sinusitis.PLAN :Amoxicillin, 250 three times a day for 10 days. Mother also requests Tylenol #3 for the child's he adache 1 tablet every 6 hours as needed #12 were given. The patient will follow up with PCP for furth er evaluation. Viet Muse M.D./omarD: 02/10/2004T: 02/11/2004 Source: [facility] RWHXTRANSXSYS Document Id: [id number] documented in this encounter Plan of Treatment Not on filedocumented as of this encounter Visit Diagnoses Not on filedocumented in this encounter
--- OUTSIDE RECORDS SUMMARY | 2022-09-25 11:07 | XMS_ITS | Encounter Summary ---
:1990 Author Organization [facility] Address [address] [place] [address] Care Team Providers Name Role Phone Unavailable Primary Care Provider Unavailable Encounter Details Date Type Department Care Team Description 09/18/2003 Hospital Encounter HX [facility] Hong Tinoco M.D. [address] [place], [place] [address] (Wo rk) Social History [...] Progress Notes Conversion, Historical Provider Ser - 09/18/2003 2:30 PM CDT [id number] Addended by: DANIEL QUINONEZ on: 09/24/2003,7:13 AM Comment: transcriptionModules accepted: Maureen GavinSUBJECTIVE:The patient has been sick for about a [...] dyspnea. Appetite is decreased. Activity decreased. OBJE CTIVE:The patient is alert and no acute distress.Skin is clear.HEENT: normocephalic.Eyes look nor mal, no discharge. Nose congested with mild mucosal erythema.TMs are clear.Throat is negative.Nec k is supple. No masses. Lungs are clear to auscultation. No rales, no wheezes. Heart regular rat e and no murmur.Abdomen is negative.ASSESSMENT:URIPLAN:1. Because of the mother's history of walking pneumonia, will treat the patient with Zithromax.2. Return PRN. Otto tolentino M.D./mpD: 09/18/03T: 09/20/03 Source: [facility] RWHXTRANSXSYS Document Id: [id number] documented in this encounter Plan of Treatment Not on filedocumented as of this encounter Visit Diagnoses Not on filedocumented in this encounter
--- OUTSIDE RECORDS SUMMARY | 2022-09-25 11:07 | XMS_ITS | Encounter Summary ---
:1990 Author Organization [facility] Address [address] [place] [address] Care Team Providers Name Role Phone Unavailable Primary Care Provider Unavailable Encounter Details Date Type Department Care Team Description 03/22/2003 Hospital Encounter HX [facility] Provider, Miguelangel valencia Social [...] as of this encounter Progress Notes Conversion, Dmitriy Provider Ser - 03/22/2003 12:00 AM CDT [id number] Assisting patient with medication through the pharmaceutical company Source: [facility] SRIKANTHHXTRANSXSYS Document Id: [id number] documented in this encounter Plan of Treatment Not on filedocumented as of this encounter Visit Diagnoses Not on filedocumented in this encounter
--- OUTSIDE RECORDS SUMMARY | 2022-09-25 11:07 | XMS_ITS | Encounter Summary ---
:1990 Author Organization [facility] Address [address] [place] [address] Care Team Providers Name Role Phone Unavailable Primary Care Provider Unavailable Encounter Details Date Type Department Care Team Description 08/04/2002 Hospital Encounter [facility]X [facility] Ra osmany Holliday, P.AJaciel-CJaciel [address] [place] [address] (Wo rk) Social History Tobacco [...] Progress Notes Conversion, Historical Provider Ser - 08/04/2002 3:50 PM CDT [id number] Addended by: LEA CALZADA on: 08/09/2002,2:51 PM Comment: Pathology report coding updateModules accepted: Order Summary, Progress NotesSUBJECTIVE:Royal is a 11 year old male brought in by his mom today for nevus exisicion. He has a small nevus on his upper back that is unchanged per mom.OBJE CTIVE:Weight 54 lbs 11 oz (24.812 kg).On exam, there is a 0.5cm x 0.5cm benign- appearing nevus on h is left upper back that has slight difference in color throughout.PROCEDURE:The area had EMLA crea m applied 1 hour ago. The area is prepped with betadine and alcohol and 1% lidocaine is injected loc ally for anesthesia. An eliptical incision is made and the nevus removed. Steri- strips were applied .Keep clean and dry x 1 week. Source: [facility] RWHXTRANSXSYS Document Id: [id number] documented in this encounter Plan of Treatment Not on filedocumented as of this encounter Visit Diagnoses Not on filedocumented in this encounter
--- OUTSIDE RECORDS SUMMARY | 2022-09-25 11:07 | XMS_ITS | Encounter Summary ---
:1990 Author Organization [facility] Address [address] [place] [address] Care Team Providers Name Role Phone Unavailable Primary Care Provider Unavailable Encounter Details Date Type Department Care Team Description 2003 Hospital Encounter HX NO MAPPING Provider, Historical [...]
--- OUTSIDE RECORDS SUMMARY | 2022-09-25 11:07 | XMS_ITS | Encounter Summary ---
:1990 Author Organization [facility] Address [address] [place] [address] Care Team Providers Name Role Phone Unavailable Primary Care Provider Unavailable Encounter Details Date Type Department Care Team Description 09/01/2003 Hospital Encounter HX NO MAPPING Emanuel Gandhi M.D. [address] [place], [place] [phone] (Wo rk) Social History [...]
--- OUTSIDE RECORDS SUMMARY | 2022-09-25 11:07 | XMS_ITS | Encounter Summary ---
:1990 Author Organization [facility] Address [address] [place] [address] Care Team Providers Name Role Phone Unavailable Primary Care Provider Unavailable Encounter Details Date Type Department Care Team Description 09/06/2003 Hospital Encounter HX [facility] [...]
--- OUTSIDE RECORDS SUMMARY | 2022-09-25 11:07 | XMS_ITS | Encounter Summary ---
:1990 Author Organization [facility] Address [address] [place] [address] Care Team Providers Name Role Phone Unavailable Primary Care Provider Unavailable Encounter Details Date Type Department Care Team Description 10/31/2002 Hospital Encounter HX [facility] [...]
--- OUTSIDE RECORDS SUMMARY | 2022-09-25 11:07 | XMS_ITS | Encounter Summary ---
:1990 Author Organization [facility] Address [address] [place] [address] Care Team Providers Name Role Phone Unavailable Primary Care Provider Unavailable Encounter Details Date Type Department Care Team Description 01/24/2004 Hospital Encounter HX [facility] [...]
--- OUTSIDE RECORDS SUMMARY | 2022-09-25 11:07 | XMS_ITS | Encounter Summary ---
:1990 Author Organization [facility] Address [address] [place] [address] Care Team Providers Name Role Phone Unavailable Primary Care Provider Unavailable Encounter Details Date Type Department Care Team Description 02/04/2004 Hospital Encounter HX [facility] [...]
--- OUTSIDE RECORDS SUMMARY | 2022-09-25 11:07 | XMS_ITS | Encounter Summary ---
:1990 Author Organization [facility] Address [address] [place] [address] Care Team Providers Name Role Phone Unavailable Primary Care Provider Unavailable Encounter Details Date Type Department Care Team Description 08/14/2003 Hospital Encounter HX NO MAPPING Provider, Historical [...]
--- OUTSIDE RECORDS SUMMARY | 2022-09-25 11:07 | XMS_ITS | Encounter Summary ---
:1990 Author Organization [facility] Address [address] [place] [address] Care Team Providers Name Role Phone Unavailable Primary Care Provider Unavailable Encounter Details Date Type Department Care Team Description 01/03/2004 Hospital Encounter HX [facility] [...]
--- OUTSIDE RECORDS SUMMARY | 2022-09-25 11:07 | XMS_ITS | Encounter Summary ---
:1990 Author Organization [facility] Address [address] [place] [address] Care Team Providers Name Role Phone Unavailable Primary Care Provider Unavailable Encounter Details Date Type Department Care Team Description 09/26/2003 Hospital Encounter [facility]X [facility] Maci Osuna M.D. Social [...] Progress Notes Conversion, Historical Provider Ser - 09/26/2003 11:30 AM CST [id number] Addended by: FAIZA BUCKNER on: 10/01/2003,2:25 PM Comment: transcriptionModules accepted: Progress NotesThe patient is here with his brother with concerns about persistent complaints of chest disco mfort and cough with 2 week illness and completing a 5 day course of Zithromax. Complains of a stoma chache in the mornings and persistent rhinorrhea and congestion. He has a history of wheezing and toledo s used an inhaler which he has continued to use about twice per day. On physical exam, he is alert , comfortable, breathing easily. Conjunctiva are clear. Both TMs are translucent.Nose is congested . He complains of tenderness to palpation over the sinus area.Oropharynx is clear.Neck is supple. Chest, good air exchange but his peak flows are noted which are decreased from expected.Abdomen is s oft.ASSESSMENT: Question persistent symptoms with failure of Zithromax. Suggest clinical sinusiti s and reactive airway disease exacerbation.PLAN: Augmentin as prescribed. Start prednisone 20 mg b.i.d. for 5 days. Continue Albuterol. Return if not improving in 3-5 days, further concerns, or any time he worsens.Mariely Osuna M.D./graceD: 09/27/2003T: 10/01/2003 Source: [facility] RWHXTRANSXSYS Document Id: [id number] documented in this encounter Miscellaneous Notes Miscellaneous - Mariely Osuna M.D. - 09/26/2003 11:30 AM CST [id number] AUTHORIZATION FOR GIVING MEDICATIONS IN SCHOOLS NAME: John Gavin SCHOOL: ALLERGIES: Review of the patient's allergies finds: No Known Allergies NAME AND DOSAGE OF MEDICATION: TIME TO BE GIVEN: 1. I request medication be given at school as prescribed by a physician, by designated personnel. 2. I understand that school personnel are not liable in the event any reaction results from the medication when properly administered. Signature of Parent/Guardian: Date: Note: Medication is to be supplied in a prescription bottle. TO BE COMPLETED BY PHYSICIAN 1. MEDICATION AND DOSAGE: Current prescriptions: ALBUTEROL 90 MCG/ACT IN AERS 2 puffs every 4 hours as needed for cough/wheeze. Use with spacer 2. REASON FOR WHICH THIS MEDICATION MUST BE ADMINISTERED DURING SCHOOL HOURS: Patient Active Problem List: WHEEZING 3. ANY SPECIAL SIDE EFFECTS OR PRECAUTIONS THAT NEED TO BE CONSIDERED WHEN ADMINISTERING THIS MEDICATION: NONE 4. PRESCRIPTION VALID FOR 1 YEAR Mariely Ousna 09/26/2003 Source: [facility] RWMCHXTRANSXRTFSYS Document Id: [id number] documented in this encounter Plan of Treatment Not on filedocumented as of this encounter Visit Diagnoses Not on filedocumented in this encounter
--- OUTSIDE RECORDS SUMMARY | 2022-09-25 11:07 | XMS_ITS | Encounter Summary ---
:1990 Author Organization [facility] Address [address] [place] [address] Care Team Providers Name Role Phone Unavailable Primary Care Provider Unavailable Encounter Details Date Type Department Care Team Description 09/15/2003 Hospital Encounter HX NO MAPPING Provider, Historical [...] Progress Notes Conversion, Historical Provider Ser - 09/15/2003 11:50 AM CDT [id number] SUBJECTIVE: He is complaining of a sore [...] last night. He has no history of asthma.OBJECTIVE: On examination, his voice is hoarse.Oral cavity - fairly normal.Rapid Strep was done prior to my seeing him, and it was negat roberto.Neck - supple, no nodes.Lung harrington - clear.Cough - not witnessed.Skin - warm and dry. He toledo s semi-circles under his eyes.ASSESSMENT:1. Viral UTI with cough and some bronchospasm.PLAN:1. Albuterol inhaler 2 puffs QID prn cough. Royal states that he knows how to use the inhalers.2. Al so, advised continuing with extra humidification if possible.Hansa Morley PA-C/darnellaD: 08/29T: 09/17/2003 Source: [facility] RWHXTRANSXSYS Document Id: [id number] documented in this encounter Plan of Treatment Not on filedocumented as of this encounter Visit Diagnoses Not on filedocumented in this encounter
--- OUTSIDE RECORDS SUMMARY | 2022-09-25 11:07 | XMS_ITS | Encounter Summary ---
:1990 Author Organization [facility] Address [address] [place] [address] Care Team Providers Name Role Phone Unavailable Primary Care Provider Unavailable Encounter Details Date Type Department Care Team Description 06/20/2003 Hospital Encounter HX [facility] Provider, Suraj acuña Social History Tobacco Use Types Packs/Day Years [...] Progress Notes Conversion, Historical Provider Ser - 06/20/2003 11:15 AM CDT [id number] John Gavin is a 12 year old male who I did a cysto and urethra dil. approx. 5 yrs. ago. Old brenda garner is not available. For the last [...] it is a narrow stream. UA is dipstik-.With his past hx. of a cysto and UD, we will schedule him for the same procedure. [facility] Document Id: [id number] documented in this encounter Plan of Treatment Not on filedocumented as of this encounter Visit Diagnoses Not on filedocumented in this encounter
--- OUTSIDE RECORDS SUMMARY | 2022-09-25 11:07 | XMS_ITS | Encounter Summary ---
:1990 Author Organization [facility] Address [address] [place] [address] Care Team Providers Name Role Phone Unavailable Primary Care Provider Unavailable Encounter Details Date Type Department Care Team Description 07/04/2003 Hospital Encounter HX [facility] [...]
--- OUTSIDE RECORDS SUMMARY | 2022-09-25 11:07 | XMS_ITS | Encounter Summary ---
:1990 Author Organization [facility] Address [address] [place] [address] Care Team Providers Name Role Phone Unavailable Primary Care Provider Unavailable Encounter Details Date Type Department Care Team Description 11/18/2003 Hospital Encounter HX NO MAPPING Seda Mosley [...]
--- OUTSIDE RECORDS SUMMARY | 2022-09-25 11:07 | XMS_ITS | Encounter Summary ---
:1990 Author Organization [facility] Address [address] [place] [address] Care Team Providers Name Role Phone Unavailable Primary Care Provider Unavailable Encounter Details Date Type Department Care Team Description 06/17/2003 Hospital Encounter HX NO MAPPING Addison Sidhu, Lydia John. Social History Tobacco Use Types Packs/Day Years [...] Progress Notes Conversion, Historical Provider Ser - 06/17/2003 10:45 AM CDT [id number] for one and a half to two weeks he has had urinary frequency with some urgency, but no dysuria. Pre vious history of urinary urethra dilation by Dr. Andrea. Mother wanted to make sure that he is not infected. He apparently is on Penicillin currently. No acute distress.Vital signs discussed. No tenderness over either renal region.Abdomen soft and nontender with no rash. No inguinal hernia. Both testis descended. Circumcised male penis with no evidence of infection or tenderness etc. U A discussed with mother. Recommended she have John see Dr. Andrea again for evaluation and po ssible re-dilation and mother agreed and note written.5th Grade. Wisam Browning M.D ./mpD: 06/17/2003T: 06/18/2003 Source: [facility] RWMCHXTRANSXSYS Document Id: [id number] documented in this encounter Plan of Treatment Not on filedocumented as of this encounter Visit Diagnoses Not on filedocumented in this encounter
--- OUTSIDE RECORDS SUMMARY | 2022-09-25 11:07 | XMS_ITS | Encounter Summary ---
:1990 Author Organization [facility] Address [address] [place] [address] Care Team Providers Name Role Phone Unavailable Primary Care Provider Unavailable Encounter Details Date Type Department Care Team Description 09/01/2002 Hospital Encounter HX NO MAPPING Otto Tinoco M.D. [address] [place], [place] [address] (Wo rk) Social History [...] Progress Notes Conversion, Historical Provider Ser - 09/01/2002 8:45 PM CDT [id number] SUBJECTIVE:The patient is brought to Urgent Care because of sore throat persisting since this mornin g. He has had a low-grade fever but did go to school today. Tonight was complaining of his neck feeli ng stiff and painful so he was brought in for evaluation. He has had no cough or runny nose. No vomi ting or headache.OBJECTIVE:GENERAL: The patient is alert and in no acute distress. SKIN: Clear, no rashes or petechia.HEENT: Normocephalic. EYES: Clear. NOSE: Clear without congestion or drain age.EARS: TMs are normal.THROAT: Mildly red with a few red spots noted on the soft palate. No exuda te.NECK: Supple with no adenopathy.LUNGS: Clear to auscultation. HEART: Regular rate and no murmur . ABDOMEN: Soft, no masses, no organomegaly.LABORATORY/X-RAY RESULTS:Rapid strep test is negativ e.ASSESSMENT:Acute pharyngitis probably viral.PLAN:1. Symptomatic treatment.2. Call back if no t better in two to three days.Otto Tinoco M.D./omarD: 09/01/2022T: 09/04/2002 Source: [facility] RWHXTRANSXSYS Document Id: [id number] documented in this encounter Plan of Treatment Not on filedocumented as of this encounter Visit Diagnoses Not on filedocumented in this encounter
--- OUTSIDE RECORDS SUMMARY | 2022-09-25 11:07 | XMS_ITS | Encounter Summary ---
:1990 Author Organization [facility] Address [address] [place] [address] Care Team Providers Name Role Phone Unavailable Primary Care Provider Unavailable Encounter Details Date Type Department Care Team Description 06/22/2003 Hospital Encounter HX NO MAPPING Provider, Historical [...]
--- OUTSIDE RECORDS SUMMARY | 2022-09-25 11:07 | XMS_ITS | Encounter Summary ---
:1990 Author Organization [facility] Address [address] [place] [address] Care Team Providers Name Role Phone Unavailable Primary Care Provider Unavailable Encounter Details Date Type Department Care Team Description 01/31/2004 Hospital Encounter HX [facility] Provider, Historic al Social History Tobacco [...] Miscellaneous - Conversion, Historical Provider Ser - 01/31/2004 12:[address] [facility] [employer] [id number] >> LEO Choi Feb 04, 2004 10:00 AM This encounter has been dictated. >> LEO Granado Feb 01, 2004 2:07 PM na >> VIRIDIANA Tripathi Jan 31, 2004 4:12 PM >> CALL RECEIVED. Contact: Penny Gavin @ [phone] or [phone] Home Things are not going well with Royal and Penny needs to talk to you [facility] Document Id: [id number] documented in this encounter Plan of Treatment Not on filedocumented as of this encounter Visit Diagnoses Not on filedocumented in this encounter
--- OUTSIDE RECORDS SUMMARY | 2022-09-25 11:07 | XMS_ITS | Encounter Summary ---
:1990 Author Organization [facility] Address [address] [place] [address] Care Team Providers Name Role Phone Unavailable [...] Miscellaneous - Conversion, Historical Provider Ser - 06/22/2003 12:00 AM CDT [id number] Abstracted by JA Cylinder Filler on [address] [place] [address] [id number] Andrea M.D.Room No. [id number], ALEXANDER : 92PROCEDURE/OPERATIVE REPO RTPREOPERATIVE DIAGNOSIS:Urethral stricture. POSTOPERATIVE DIAGNOSIS:Urethral stricture.PROCE DURE: CYSTOSCOPYSurgeon: Dr. Andrea.Anesthesia: General.INDICATIONS: The patient is a 12- year-old male who was seen in the office on 06-20-03. The patient's mother stated that I did a cystos copy and urethral dilatation approximately 5 years ago but the chart was not available. The patient' s mother stated that over the last two weeks he has been going to the bathroom constantly and he has nocturia times one which he usually doesn't have at all since he stopped wetting the bed about two ye ars ago. Also before going to bed he will go to the bathroom multiple times. Mother has observed him urinating and says it is a narrow stream. With this history it is recommended that he have a cystosc opy and urethral dilatation if a stricture is found. OPERATION: Under adequate general anesthetic and sedation with Versed the patient was prepped and draped in the usual manner. The number 11 cysto urethroscope was utilized for examination and the scope was passed easily through the urethra under d irect vision through the prostate and into the bladder. The bladder was noted to be 0 to 1 plus trab eculated, normal appearing ureteral orifices on the trigone. No evidence of foreign body in the blad dhara. No evidence of posterior urethral valves. The urethra was also noted to have no evidence of an y stricture whatsoever. At the end of the procedure rectal examination was done which showed a norm al rectal fossa without any mass. IMPRESSION:Normal urethra without evidence of urethral stricture . Brennan Andrea M.D./Amanda: 06/22/03 Source: [facility] RWHXTRANSXSYS Document Id: [id number] documented in this encounter Plan of Treatment Not on filedocumented as of this encounter Visit Diagnoses Not on filedocumented in this encounter
--- OUTSIDE RECORDS SUMMARY | 2022-09-25 11:07 | XMS_ITS | Encounter Summary ---
:1990 Author Organization [facility] Address [address] [place] [address] Care Team Providers Name Role Phone Unavailable Primary Care Provider Unavailable Encounter Details Date Type Department Care Team Description 2003 Hospital Encounter HX NO MAPPING Lobo Callahan M.D. [address] [place] [address] (Wo rk) Social History Tobacco Use [...]
--- OUTSIDE RECORDS SUMMARY | 2022-09-25 11:07 | XMS_ITS | Encounter Summary ---
:1990 Author Organization [facility] Address [address] [place] [address] Care Team Providers Name Role Phone Unavailable Primary Care Provider Unavailable Encounter Details Date Type Department Care Team Description 09/01/2003 Hospital Encounter HX NO MAPPING Provider, Historical [...]
--- OUTSIDE RECORDS SUMMARY | 2022-09-25 11:07 | XMS_ITS | Encounter Summary ---
:1990 Author Organization [facility] Address [address] [place] [address] Care Team Providers Name Role Phone Unavailable Primary Care Provider Unavailable Encounter Details Date Type Department Care Team Description 08/30/2003 Hospital Encounter HX [facility] [...]
--- OUTSIDE RECORDS SUMMARY | 2022-09-25 11:07 | XMS_ITS | Encounter Summary ---
:1990 Author Organization [facility] Address [address] [place] [address] Care Team Providers Name Role Phone Unavailable Primary Care Provider Unavailable Encounter Details Date Type Department Care Team Description 09/07/2003 Hospital Encounter HX [facility] Garrett Zepeda M .D. Social History Tobacco Use Types [...] Progress Notes Conversion, Historical Provider Ser - 09/07/2003 11:00 AM CDT [id number] Addended by: DANIEL QUINONEZ on: 09/12/2003,12:57 PM Comment: transcriptionModules accepted: Lydia chung NotesThe patient is an 13 y/o male who presents for evaluation because of concerns the [facility] er has. The patient's mother and grandmother [...] uently brought him to the ER in [place]. Evidently the laceration opened up and reported blood spew ed out. This was evaluated in the emergency room and cauterized and was then re- sutured. There was concern because of possible deeper injury. Clinically, the individual has a less than approximate 1/2 inch laceration to the base of the thenar eminence. He has in detailed exam full intrinsic funct ion of all flexor tendons. Neurologic exam shows varinder sensation to all areas of the hand. There i s good pulsations present and good refill in all digits. The incision itself appears to be healing. The sutures are planned to come out Wednesday, the and will return for that brief recheck. Garrett Arevalo M.D./mpD: 09/07/2003T: 09/12/2003 Source: [facility] RWMCHXTRANSXSYS Document Id: [id number] documented in this encounter Plan of Treatment Not on filedocumented as of this encounter Visit Diagnoses Not on filedocumented in this encounter
--- OUTSIDE RECORDS SUMMARY | 2022-09-25 11:07 | XMS_ITS | Encounter Summary ---
:1990 Author Organization [facility] Address [address] [place] [address] Care Team Providers Name Role Phone Unavailable Primary Care Provider Unavailable Encounter Details Date Type Department Care Team Description 08/14/2003 Hospital Encounter HX NO MAPPING Seda Mosley [...]
--- OUTSIDE RECORDS SUMMARY | 2022-09-25 11:07 | XMS_ITS | Encounter Summary ---
:1990 Author Organization [facility] Address [address] [place] [address] Care Team Providers Name Role Phone Unavailable Primary Care Provider Unavailable Encounter Details Date Type Department Care Team Description 06/20/2003 Hospital Encounter [facility] Er werner Mane M.D. [address] [place] [phone] (Wo rk) Social History Tobacco Use Types [...] Notes Conversion, Historical Provider Ser - 06/20/2003 3:40 PM CDT [id number] Date of Surgery: 06/22Type of Anticipated Surgery: urethral dilationSurgeon: Cathy RedType of Anesthesia Anticipated: General PRESENT HISTORY:John Townsend er is an 12 year old male here for preop physical. urinary frequency, narrow stream hx of urinary dil ation in past.Patient Active Problem List: HEADACHE[784.0] Date Noted: 06/08/2001 ATTN DEFI CIT W HYPERACT[314.01] TIC DISORDER NOS[307.20] Date Noted: 07/20/2002MEDICATIONS:Meds as of 06/20/2003:ADDERALL XR (30MG) CAPS CLONIDINE HCL 0.1 MG OR TABS one q nightALLERGIES:Review of tyson spear's allergies indicates: No Known Aller* PAST SURGICAL HISTORY: Urethral dilation- age 7Herni a repair-1.5 dggaunsudsnhcuziu-1ujijtypatbgli-3bee tubes bilat-3yTransfusion reactions: No prior transfusionsBleeding tendencies:No bleeding problems notedPrior Sedation? yes - gets very anxious prior to surgeryAnesthesia reactions? no- some vomiting afterwardsDifficult intubation with prior s urgery? noPost operative airway difficulties such as bronchospasm, edema, pneumonia? noPAST HISTORY :There is no previous medical history on file. immu:UTDNormal growth and development for age? Yes Asthma? noCroup? noContagious contact (chickenpox, measles, mumps, rubella)? noHepatitis/HIV? no FAMILY HISTORY: Review of patient's family history indicates: Neurological Mothe r Comment: migraine headaches Neurological Paternal Grandmoth er Comment: migraine headaches No family history of malignant hyperthermia.No family history of bleeding disorder..REVIEW OF SYSTEMS:General: negativeSkin: negativeEyes: negativeEars/Nos e/Throat: negativeRespiratory: negativeCardiovascular: negativeGastrointestinal: negativeGenitour inary: frequencyMusculoskeletal: joint stiffness, neckNeurologic: negativePsychiatric: attention d isorderHematologic/Lymphatic/Immunologic: negativeEndocrine: negativePHYSICAL EXAM:General Appea arnulfo: healthy, alert and no distressBP 114/66 Pulse 108 Temp 98.1 Temp Src: Tympanic Ht 4' 5.5 (1.359m) Wt 59 lbs 5 oz (26.898 kg)Head: Atraumatic, normocephalicEyes: Conjunctivae are ander ar, EOM intact, PERRL, Optic discs sharp.Ears: External ears and canals are normal. TM's translucen t with normal luisa landmarks. No erythema or purulence. Normal mobility.Nose: No lesions, no drai nage.Oropharynx: Moist membranes, no tonsillar erythema or exudate. Tonsils 2+. No loose teeth.Nec k: Supple, no significant adenopathy.Chest: Easy respirations. Lungs clear to auscultation. Good air movement bilaterally without rales, wheezes, or rhonchi.CV: Regular rate and rhythm with normal S1 and split S2. No murmur appreciated. Abdomen: soft, active bowel sounds, No organomegalyGU:NORMAL male - circumcisedSkin: Normal color, temperature and turgor. No rashes or suspicious skin lesions noted.Neuro: General movements show normal strength and no weakness. Normal tone. Symmetric DTR's. Toes down going.Gait: normalMusculoskeletal: Range of motion of neck, shoulder, elbow, hands, back, hips, knees and ankles are within normal limits by screening exam. Back is straight. Leg length eq ual. LAB: No results found for this basename: HGB,1]ASSESSMENT:Preoperative clearance for surger y.class 1 risk PLAN:Cleared for surgery: yes- mom request anti- anxiety meds prior to ORMD Signature: Monster bob M.D. PEDIATRICS [facility] Source: [facility] RWHXTRANSXSYS Document Id: [id number] documented in this encounter Plan of Treatment Not on filedocumented as of this encounter Visit Diagnoses Not on filedocumented in this encounter
--- OUTSIDE RECORDS SUMMARY | 2022-09-25 11:08 | XMS_ITS | Encounter Summary ---
:1990 Author Organization [facility] Address [address] [place] [address] Care Team Providers Name Role Phone Unavailable Primary Care Provider Unavailable Encounter Details Date Type Department Care Team Description 08/03/2002 Hospital Encounter HX [facility] P[facility] Provider, Miguelangel valencia Social History [...] of this encounter Miscellaneous Notes Miscellaneous - Cora Holliday P.A.-C. - 08/03/2002 12:00 AM CDT [id number] SCHOOL ADMINISTRATION OF PRESCRIPTIVE MEDICATIONS Royal Gavin [address] [place] [address] Birthdate: 1990 (home) Medication order: EMLA cream Possible Reactions: local skin irritation Length of Continuation: prior to immunizations Cora Holliday PA-C P[facility]ATRICS [facility] 08/03/2002 I request that authorized school personnel administer the above medication(s) at the prescribed times to my child. (Parent Signature) Date [facility] Document Id: [id number] Electronically signed by Conversion, [facility] Featheredge Machine Operator [id number] at 05/03/2017 8:01 PM CDT Telephone Encounter - Conversion, Historical Provider Ser - 08/03/2002 12:00 AM CDT [id number] >> LEROY ALLEN Bhumi Aug 03, 2002 3:34 PM >> CALL RECEIVED. Contact: Will need to apply emla prior to coming to appt with you tomorrow. Will need to be applied at school so will need a school med form for this tomorrow. Fax to [place] when complete. Source: [facility] RWMCHXTRANSXSYS Document Id: [id number] documented in this encounter Plan of Treatment Not on filedocumented as of this encounter Visit Diagnoses Not on filedocumented in this encounter
--- OUTSIDE RECORDS SUMMARY | 2022-09-25 11:08 | XMS_ITS | Encounter Summary ---
:1990 Author Organization [facility] Address [address] [place] [address] Care Team Providers Name Role Phone Unavailable Primary Care Provider Unavailable Encounter Details Date Type Department Care Team Description 06/12/2002 Hospital Encounter [facility]X [facility] Ra osmany Holliday, P.AYovanyCJaciel [address] [place] [phone] (Wo rk) Social History Tobacco [...] Progress Notes Conversion, Historical Provider Ser - 06/12/2002 3:50 PM CDT [id number] SUBJECTIVE:Royal is a 11 year old male brought [...] cough, or abdominal pain. No frequ ent headaches. He continues to eat and drink well and has had normal activity levels. OBJECTIVE: Royal is alert and cooperative. He does occassionally have a brief, forceful exhalation.Conjunctivae clear, noninjected.Nares patent, noncongested.Oropharynx pink and moist without lesion.Ear canals clear. TMs translucent with normal light reflex and bony landmarks. Neck supple without lymphadenop athy.Lungs cTA bilaterally.chest xray negative.ASSESSMENT/PLAN:Discussed that at this time I be lieve his symptoms are secondary to a behavioral tic. Reassured that from an exam standpoint, his rudolph ngs are very healthy. Encouraged mom to avoid commenting on his breathing and perhaps over time this will resolve. Source: [facility] RWHXTRANSXSYS Document Id: [id number] documented in this encounter Plan of Treatment Not on filedocumented as of this encounter Visit Diagnoses Not on filedocumented in this encounter
--- OUTSIDE RECORDS SUMMARY | 2022-09-25 11:08 | XMS_ITS | Encounter Summary ---
:1990 Author Organization [facility] Address [address] [place] [address] Care Team Providers Name Role Phone Unavailable Primary Care Provider Unavailable Encounter Details Date Type Department Care Team Description 11/23/2001 Hospital Encounter HX NO MAPPING Provider, Historical [...] Progress Notes Conversion, Historical Provider Ser - 11/23/2001 6:00 PM CST [id number] SUBJECTIVE: The patient is a 11-year-old male brought in by mother today over concerns of sinus infec tion and congestion. She states he was seen towards the end of September and diagnosed with sinus inf ection and given Augmentin for 10 days. She forgot to give him the full course of the antibiotic pro bably discontinued use of it after 4 to 5 days. She states that his symptoms did improve but about a week or two later he redeveloped the sinus [...] distress. V itals - pulse is elevated. He is afebrile. Weight is 52 pounds. Eyes are clear without injection o r discharge. Ears are normal in appearance. No fluid or injection. No displacement of the landmark s. Nasal mucosa is boggy with thick discharge present. He is tender to palpation over the maxillary s inuses. Oropharynx is mildly erythematous with posterior drainage. There is no enlargement of the t onsils or exudate. Neck is supple without adenopathy. Lungs are clear to auscultation bilaterally w ith adequate respiratory effort. Heart - regular rate and rhythm. No murmurs, rubs or gallops. SESSMENT: Sinus infection. PLAN: He is given a prescription for Augmentin 400 per teaspoon suspensi on to take 1 1/2 tsp. BID X 10 days. He can continue with Sudafed and Advil as needed as this seems to help. He should follow-up with Pediatrics if symptoms fail to improve or worsen. WICHO [place]/Inge: 11/23/2001T: 11/24/2001 Source[facility] Document Id: [id number] documented in this encounter Plan of Treatment Not on filedocumented as of this encounter Visit Diagnoses Not on filedocumented in this encounter
--- OUTSIDE RECORDS SUMMARY | 2022-09-25 11:08 | XMS_ITS | Encounter Summary ---
:1990 Author Organization [facility] Address [address] [place] [address] Care Team Providers Name Role Phone Unavailable Primary Care Provider Unavailable Encounter Details Date Type Department Care Team Description 10/16/2001 Hospital Encounter HX NO MAPPING Mariely Osuna [...] Progress Notes Conversion, Historical Provider Ser - 10/16/2001 9:00 AM CST [id number] SUBJECTIVE:Royal comes in with his mother with concerns about nasal congestion that has begun over th past two to three days. He has had rhinorrhea, congestion, cough, and began complaining of a scrat clementina throat this morning. He has had no measured fever. He has had intermittent ibuprofen as needed. His other medications are noted. There has been pneumonia and sinus infection in the household. He was totally well until two to three days ago. He denies ear pain, abdominal pain, and he has no histo ry of wheezing or asthma.ON PHYSICAL EXAM:He is alert, comfortable. His conjunctivae are clear. He has mild venostasis beneath the eyes. Both TMs are translucent with tympanosclerosis but no erythem a or purulence. Nose is mildly erythematous with clear discharge. Oropharynx: Mild posterior pharyn geal erythema, no tonsils. Neck is supple without significant adenopathy. Chest: Good air entry, cl ear to auscultation. His abdomen is soft. CV: RRR, no murmur.ASSESSMENT:Viral URI.PLAN:Sympto matic treatment.I recommend that mom call me if he does not follow the expected course for a viral s yndrome and she knows how to reach me this week. Mariely Osuna M.D./omarD: 09/29T: 10/17/2001 Source: [facility] RWHXTRANSXSYS Document Id: [id number] documented in this encounter Plan of Treatment Not on filedocumented as of this encounter Visit Diagnoses Not on filedocumented in this encounter
--- OUTSIDE RECORDS SUMMARY | 2022-09-25 11:08 | XMS_ITS | Encounter Summary ---
:1990 Author Organization [facility] Address [address] [place] [address] Care Team Providers Name Role Phone Unavailable Primary Care Provider Unavailable Encounter Details Date Type Department Care Team Description 10/19/2001 Hospital Encounter HX [facility] PEDIATR[facility] Tc Coffman RJacielN. [address] [place] [phone] Social History Tobacco Use Types Packs/Day Years [...] Encounter - Conversion, Historical Provider Ser - 10/19/2001 12:00 AM CST [id number] >> MAIKOL VALLECILLO Wed Oct 19, 2001 5:06 PM Rx is faxed to pharmacy. >> VIKRAM COFFMAN WedOct 19, 2001 3:18 PM >> CALL RECEIVED. Contact: Dayanara: [phone] Seen in on Wednesday for viral URI. Was told to call if symptoms didn't improve. He still has a co ugh, temp around 100, head congestion, headache. Mom is requesting an antibiotic, one that is given BID if possible. Pharmacy: [facility] Wt: 53lbs NKDA Source[facility] Document Id: [id number] documented in this encounter Plan of Treatment Not on filedocumented as of this encounter Visit Diagnoses Not on filedocumented in this encounter
--- OUTSIDE RECORDS SUMMARY | 2022-09-25 11:08 | XMS_ITS | Encounter Summary ---
:1990 Author Organization [facility] Address [address] [place] [address] Care Team Providers Name Role Phone Unavailable Primary Care Provider Unavailable Encounter Details Date Type Department Care Team Description 07/20/2002 Hospital Encounter HX [facility] [...]
--- OUTSIDE RECORDS SUMMARY | 2022-09-25 11:08 | XMS_ITS | Encounter Summary ---
:1990 Author Organization [facility] Address [address] [place] [address] Care Team Providers Name Role Phone Unavailable Primary Care Provider Unavailable Encounter Details Date Type Department Care Team Description 10/24/2001 Hospital Encounter HX [facility] PED[facility] Provider, Miguelangel valencia Social History [...] Encounter - Conversion, Historical Provider Ser - 10/24/2001 12:00 AM CST [id number] >> MAIKOL VALLECILLO Mon Oct 24, 2001 [...] liquid med called to [facility]. Source[facility] Document Id: [id number] documented in this encounter Plan of Treatment Not on filedocumented as of this encounter Visit Diagnoses Not on filedocumented in this encounter
--- OUTSIDE RECORDS SUMMARY | 2022-09-25 11:08 | XMS_ITS | Encounter Summary ---
:1990 Author Organization [facility] Address [address] [place] [address] Care Team Providers Name Role Phone Unavailable Primary Care Provider Unavailable Encounter Details Date Type Department Care Team Description 12/28/2001 Hospital Encounter HX NO MAPPING Stew Banerjee M.D. [address] [place], [place] [address] (Wo rk) Social History [...] Progress Notes Conversion, Historical Provider Ser - 12/28/2001 5:15 PM CST [id number] SUBJECTIVE:Royal presents today after hitting his finger with [...] of the left fourth finger. Otherwise normal range of motion. Minimal tenderness. No significant swelling or redness. Normal strength and sensation thr oughout. ASSESSMENT:Subungual hematoma.PLAN:We discussed options and we will hold off on any d rainage procedure such as making a hole in the nail. We will simply have him in a finger splint for t he next week and take Advil as needed and ice. Follow up prn. Monster Banerjee M.D./omarD: 002T: 12/29/2001 Source: [facility] RWHXTRANSXSYS Document Id: [id number] documented in this encounter Plan of Treatment Not on filedocumented as of this encounter Visit Diagnoses Not on filedocumented in this encounter
--- OUTSIDE RECORDS SUMMARY | 2022-09-25 11:08 | XMS_ITS | Encounter Summary ---
:1990 Author Organization [facility] Address [address] [place] [address] Care Team Providers Name Role Phone Unavailable Primary Care Provider Unavailable Encounter Details Date Type Department Care Team Description 11/17/2001 Hospital Encounter [facility]X [facility] [...]
--- OUTSIDE RECORDS SUMMARY | 2022-09-25 11:09 | XMS_ITS | Encounter Summary ---
:1990 Author Organization [facility] Address [address] [place] [address] Care Team Providers Name Role Phone Unavailable Primary Care Provider Unavailable Encounter Details Date Type Department Care Team Description 07/20/2001 Hospital Encounter HX NO MAPPING Provider, Historical [...] Miscellaneous - Conversion, Historical Provider Ser - 07/20/2001 12:00 AM CDT [id number] *-*-*-*-* SEE SCANNED REPORT *-*-*-*-* Source: [facility] RWHXTRANSXSYS Document Id: [id number] documented in this encounter Plan of Treatment Not on filedocumented as of this encounter Visit Diagnoses Not on filedocumented in this encounter
--- OUTSIDE RECORDS SUMMARY | 2022-09-25 11:09 | XMS_ITS | Encounter Summary ---
:1990 Author Organization [facility] Address [address] [place] [address] Care Team Providers Name Role Phone Unavailable Primary Care Provider Unavailable Encounter Details Date Type Department Care Team Description 06/08/2001 Hospital Encounter [facility]X [facility] Maci Osuna M.D. Social History [...] Progress Notes Conversion, Historical Provider Ser - 06/08/2001 10:30 AM CDT [id number] Royal is a 10 year old male who is here for recheck of otitis media.Current medication: noneRecent me dication: ER antibioticCurrent symptoms: ear painSide effects of medication: nonePhysical Exam:A lert and non-ill appearing.Eyes: conjunctivae clearEARS:External ears and canals are normal. TM's translucent with normal luisa landmarks. No erythema or purulence. Normal mobility. Tympanoscleros is bilaterally.Oropharynx: normalChest: Easy respirations. Clear to ausculation. Abd: Soft, nonte nder.Skin: No rashAssessment:Acute Otitis Media resolved.Plan: Follow-up as needed or with next well child visit.Problem 2:SUBJECTIVE:C/o headaches which wake him at night screaming. This has occured 2 x in past 6 months. Last 3 weeks ago. Complains of forehead pain,and nausea. No vomitin g. C/O of much less severe headaches occasionally at other times of day and asks for advil. These a re not associated with visual changes, changes in strength or coordination. No loss of skills. Also noted had a bruise on his lateral restoration area that was associated with a broken blood vessel without trauma. Has occasional noted other small lumps at posterior hair line. I wondering if these are re lated.Followed by Dr. FRIEDMAN and Candido for ADHD, social phobia,anxiety symtoms. Meds as noted. Mom d oes not think headaches are related to anxiety, but does note that he screams a lot.Review of sonia ent's family history indicates: NEUROLOGICAL Mother Comment: migraine headaches NEUROLOGICAL Paternal Grandmother Comment: migraine head achesOBJECTIVE:General: Alert, active, cooperative. Temperature 98.1, weight 50 lbs 8 oz (22.9 1 kg).Normal balance coordination/drawing noted in exam room.Eyes are normal. PERRLA, corneas and c onjunctivae normal. Fundi are normal, no papilledema, hemorrhages or exudates. No AV crossing changes .ASSESSMENT:Headaches, possibly migraine.Behavioral problems/with multiple diagnosis under conside ration.PLAN: Headache diary - sample given. Keep for 1 month. Headache trigger list given. Try t o teach independent relaxation skills. Hand out given.Call if increasing severity/frequency of heada ches, or other symptoms emerge. Discuss with Dr. FRIEDMAN in med management. Source: [facility] RWHXTRANSXSYS Document Id: [id number] documented in this encounter Plan of Treatment Not on filedocumented as of this encounter Visit Diagnoses Not on filedocumented in this encounter
--- OUTSIDE RECORDS SUMMARY | 2022-09-25 11:09 | XMS_ITS | Encounter Summary ---
:1990 Author Organization [facility] Address [address] [place] [address] Care Team Providers Name Role Phone Unavailable Primary Care Provider Unavailable Encounter Details Date Type Department Care Team Description 05/26/2001 Hospital Encounter HX NO MAPPING Emanuel Gandhi M.D. [address] [place], [place] [phone] (Wo rk) Social History [...]
--- OUTSIDE RECORDS SUMMARY | 2022-09-25 11:09 | XMS_ITS | Encounter Summary ---
:1990 Author Organization [facility] Address [address] [place] [address] Care Team Providers Name Role Phone Unavailable Primary Care Provider Unavailable Encounter Details Date Type Department Care Team Description 02/04/2001 Hospital Encounter HX [facility] PED[facility] Provider, Miguelangel valencia Social History [...] Progress Notes Conversion, Historical Provider Ser - 02/04/2001 12:00 AM CST [id number] February 05, [address]Domenica [address] [address]IL: Royal GavinMR# [id number] Muriel:Thank you for forwarding the evalu ation on Royal Gavin. On December 29 Royal was increased to 12.5 mg a day and we had a subsequent dosa ge change to 15 mg a day on January 13. I am wondering if anyone has noticed any improvement in his ability to attend on this new dose.Thank you again.Best personal regards, Brennan young M.D.Department of PediatricsRNS/omar Source: [facility] Document Id: [id number] documented in this encounter Plan of Treatment Not on filedocumented as of this encounter Visit Diagnoses Not on filedocumented in this encounter
--- OUTSIDE RECORDS SUMMARY | 2022-09-25 11:09 | XMS_ITS | Encounter Summary ---
:1990 Author Organization [facility] Address [address] [place] [address] Care Team Providers Name Role Phone Unavailable Primary Care Provider Unavailable Encounter Details Date Type Department Care Team Description 07/28/2001 Hospital Encounter HX [facility] Provider, Miguelangel valencia Social [...] Progress Notes Conversion, Historical Provider Ser - 07/28/2001 10:10 AM CDT [id number] dictation done Pharmaceutical Sales Specialist accepted by JAIMIE LOPEZ on 08/08/2001 at 10:16 AM ------ SUBJECTIVE: Royal is 10 years old and will be going into 3rd grade at [employer]. He is brought in by his mother for reevaluation of his weight and attentional deficit. He has continued on Adderall 15 mg once a day, Clonidine 0.1 at bedtime. His weight is down from 150 pounds today. Height is up 1 /2 inch. At home, he is sleeping much better on his Clonidine. He was without it one day and was u p until 3 AM. For his anxiety issues he is being seen by Dr. Rey and they are beginning to work o n that. He was in the Emergency Room two weeks ago [...] be on an even keel n ow, particularly now that we have him sleeping better and he is working with Dr. Rey. We will con shant to monitor his weight.OBJECTIVE: Cooperative young man in no distress. The head is normocepha lic. TMs are clear. Pupils are equal round and react to light. Extraocular movements are conjugat e. No nystagmus. Fundi are benign. Nose is patent. Pharynx is clear. Neck is supple. Thyroid is normal. Chest is clear to auscultation and percussion. Cardiovascular - Normal sinus rhythm withou t murmurs. Abdomen is soft, nontender, no HSM or masses noted. Vascular - Femorals [...] clonus is present. Toes are down-going. Muscle s trength and sensation are grossly intact. Finger-nose, heel-knee is done without difficulty. There is no past pointing present. There is a fine tremor on extended hands. ASSESSMENT: ADHD who seems t o be doing fairly well now, but may be having some anxiety symptoms prior to school starting.PLAN: 1. Prescription: Continue to monitor him at three months. Continue on Adderall 15 mg one daily #30 . Mother was informed about our study coming up. Clonidine 0.1 at bedtime.2. Recheck: Three months. 3. Visit today of 25 minutes, 20 minutes of counseling time. Brennan Pat MD/ sD: 07/28/2001T: 08/08/2001 ----- Message ----- From: Brennan Pat Sent: Jul 28 10:40 AM To: [employer] Cafeteria Operator Source: [facility] RWHXTRANSXSYS Document Id: [id number] documented in this encounter Plan of Treatment Not on filedocumented as of this encounter Visit Diagnoses Not on filedocumented in this encounter
--- OUTSIDE RECORDS SUMMARY | 2022-09-25 11:09 | XMS_ITS | Encounter Summary ---
:[address] [facility] Address [address] [place] [id number] Care Team Providers Name Role Phone Unavailable Primary Care Provider Unavailable Encounter Details Date Type Department Care Team Description 05/03/2001 Hospital Encounter HX [facility] Provider, Miguelangel valencia Social History Tobacco [...] Progress Notes Conversion, Historical Provider Ser - 05/03/2001 9:20 AM CDT [id number] dictation done Resident Program Specialist accepted by MAX GUERRA on 05/05/2001 at 1:02 PM ------ MR# [id number]:Royal is now 8 1/2 years old and has completed second grade at [employer]. He has Mrs. Yeager as his teacher. He most likely will be attending the same school next [employer]. He is brought in by his mother [...] impaired category b ecause of problems with chcf memory. He was getting reading, speech, and language help which he is continuing. First quarter he had all 2s and 3s, Ss and S+ but that had dropped a great deal by the time the reports cards in November. Mother subsequent brought in his report for the first seme ster which showed 3s and 2s, S+ in most of the self development areas but the school felt he did need his dosage changed. We had moved him to 12.5 without much success so [...] his medication. When he is on medicine he seems bored a lot but he can anny ntrate on something and do it. He will not be going to summer school but has entered [employer]. Palomo ting was somewhat decreased and is on 15 mg but she feels she can cope with that. The medicine seeme d to go through the entire school day. His sleep is much better on Clonidine. They do not feel that his chest [...] clear to auscultation and percussion. Cardiovascular - Nor mal sinus rhythm without murmurs. Abdomen is soft, nontender, no HSM or masses noted. Vascular - Fe morals equal brachials. Skin is clear. Genital Exam is deferred. Extremities - Bones and joints are [...] well on Adderall, 15 mg a day .2. Sleep disturbance improved with Clonidine, 0.1.3. Still some social anxiety symptoms including some recurring chest pain. PLAN: 1. Prescription: Adderall, 15 mg daily. Prescription reads Add erall, 15 mg 1 daily #30.2. Continue Clonidine, 0.1 at bedtime for sleep.3. Recheck: Six months.4 . Visit today of 25 minutes, 20 minutes counseling time. Brennan Pat MD/omar T: 05/05/2001----- Message ----- From: Brennan Pat Sent: May 04, 2001 1 1:29 AM To: Mirna Chief Operator Hydro[employer] Source: [id number] Document Id: [id number] documented in this encounter Plan of Treatment Not on filedocumented as of this encounter Visit Diagnoses Not on filedocumented in this encounter
--- OUTSIDE RECORDS SUMMARY | 2022-09-25 11:09 | XMS_ITS | Encounter Summary ---
:1990 Author Organization [facility] Address [address] [place] [id number] Care Team Providers Name Role Phone Unavailable [...]
--- NOTE | 2022-09-25 11:14 | ED.NURSE ---
DEC in progress
[2022-09-25 11:24] LABS: Amphetamine Screen Urine Negative (Negative); Barbiturate Screen Urine Negative (Negative); Benzodiazepines Screen Urine Negative (Negative); Cannabinoid Screen Urine Negative (Negative); Cocaine Screen Urine Negative (Negative); Methadone Screen Urine Negative (Negative); Methamphetamines Screen Urine Negative (Negative); Opiate Screen Urine Negative (Negative); Phencyclidine Screen Urine Negative (Negative); Tricyclic Antidepressant Urine Negative (Negative)
[2022-09-25 11:55] LABS: SARS PCR* Negative SARS-CoV-2 (Negative)
[2022-09-25 11:56] LABS: Basophils Absolute Auto 0.03 K/uL (0.00-0.30); Basophils Percent Auto 0.4 % (0.0-3.0); Eosinophils Absolute Auto 0.14 K/uL (0.00-0.50); Eosinophils Percent Auto 1.9 % (0.0-7.0); Hematocrit 48.5 % (37.0-53.0); Hemoglobin* 16.5 gm/dL (13.5-17.5); Immature Granulocytes Abs Auto 0.03 K/uL (0.00-0.30); Lymphocytes Percent Auto 19.9 % (20-44); Mean Corpuscular HGB Conc 34 gm/dL (32-36); Mean Corpuscular Hemoglobin 30 pg (26-34); Mean Corpuscular Volume 88 fL (80-100); Monocytes Percent Auto 6.6 % (0.0-11.0); Neutrophils Absolute Auto 5.23 K/uL (1.7-7.0); Neutrophils Percent Auto 70.8 % (42.0-72.0); Platelet Count* 211 K/uL (140-440); RDW Coefficient of Variation % 12.1 % (11.5-15.5); White Blood Count* 7.39 K/uL (4.50-11.00)
[2022-09-25 11:57] LABS: Slide Review Reflex No
[2022-09-25 12:04] LABS: Oxycodone Screen Urine POSITIVE (Negative)
[2022-09-25 12:24] LABS: Albumin* 4.5 g/dL (3.3-5.0)
[2022-09-25 12:25] LABS: Chloride* 103 mmol/L (96-114); Potassium* 4.4 mmol/L (3.6-5.1); Sodium* 140 mmol/L (135-149)
[2022-09-25 12:27] LABS: Bilirubin Direct* 0.1 mg/dL (0.0-0.5); Bilirubin Total* 0.6 mg/dL (0.1-1.5); Blood Urea Nitrogen* 17 mg/dL (5-24); Est. Creatinine Clearance* 111.53; Estimated Glomerular Filt Rate 104 ml/min; Total Protein* 7.1 g/dL (6.0-8.3)
[2022-09-25 12:28] LABS: Alanine Aminotransferase* 23 U/L (4-50); Alkaline Phosphatase* 84 U/L (40-150); Aspartate Amino Transferase* 40 U/L (12-35); Calcium* 9.2 mg/dL (8.4-10.6); Glucose* 98 mg/dL (60-115)
[2022-09-25 12:32] LABS: Salicylate* < 1.0 mg/dL (1.0-10)
[2022-09-25 12:33] LABS: Acetaminophen* < 10.0 ug/mL (10.0-30.0); Ethanol* < 0.01 % (0.01-0.03)
[2022-09-25 12:44] LABS: Carbon Dioxide* 27 mmol/L (20-32)
--- NOTE | 2022-09-25 13:50 | ED.NURSE ---
ate large lunch and is now sleeping
--- NOTE | 2022-09-25 17:02 | ED.NURSE ---
call to [facility] for update. continuing to review
[2022-09-25 18:03] VITALS: BP 116/62; PULSE 78; RESP 18; TEMP 36.5; O2SAT 96
[2022-09-26 00:55] VITALS: BP 120/80; PULSE 74; RESP 18; TEMP 36.7; O2SAT 96
--- NOTE | 2022-09-26 00:55 | ED.NURSE ---
pt. sleeping at this time. vitals stable. will probably do another DEC assessment in the morning.
[2022-09-26 06:23] VITALS: BP 118/78; PULSE 69; RESP 18; TEMP 36.7; O2SAT 96
--- NOTE | 2022-09-26 06:24 | ED.NURSE ---
pt. continues to sleep. vitals remain stable. will do DEC assessment around 0800 for further care/disposition.
--- NOTE | 2022-09-26 09:36 | ED.NURSE ---
unable to contact someone at [facility]. learned that pt has a guardian, his mother Dayanara. [phone]. spoke to Dayanara and learned that pt is not court ordered to treatment. pt admits this AM that he is not suicidal. was not suicidal yesterday either. states he just wanted to get out of treatment. pt does not want to go back to treatment. tried contacting pt's POAmarilis [phone] for any concerns, no answer, message left
== END 2022-09-26 10:37 | disposition home or self-care (01) ==
PROVIDERS: Emergency Provider Family Medicine
DX: R45.851 Suicidal ideations (principal)
CPT/HCPCS: 36415; 80048; 80076; 80143; 80179; 80306; 82077; 85025; 87635; 99284